=== PATIENT | male | born 1980 | race Caucasian/White ===

== ENCOUNTER 2017-08-10 22:54 | Emergency (ER) | payer SELFPAY ==
--- OUTSIDE RECORDS SUMMARY | 2017-08-10 22:57 | XMS REPORT | Clinical Summary ---
:[address] [facility] Address [address] [place] [address] Phone Care Team Providers Name Role Phone Unavailable Primary Care Provider Unavailable Allergies Active Allergy Reactions Severity Noted Date Comments Cyclobenzaprine Hcl 09/25/2016 Ibuprofen 09/25/2016 Ibuprofen 09/25/2016 Nsaids (Non-Steroidal Anti-Inflammatory Drug) 01/19/2017 Current Medications Prescription Sig. Disp. Refills Start Date End Date Status metFORMIN Take 500 mg by Active (GLUCOPHAGE) 500 MG mouth 2 (two) tablet times daily with breakfast and dinner. gabapentin Take 300 mg by Active (NEURONTIN) 300 MG mouth 3 (three) capsule times daily. ondansetron Take 1 tablet 10 tablet 0 03/08/2017 Active (ZOFRAN) 4 MG (4 mg total) by tablet mouth 3 (three) times daily as needed for Nausea for up to 10 doses. acetaminophen-codei Take 1 tablet 7 tablet 0 09/25/2016 Discontinued ne (TYLENOL #3) by mouth every 7 300-30 mg per 6 (six) hours tablet as needed for Pain for up to 7 doses. Max Daily Amount: 4 tablets methocarbamol Take 1 tablet 10 tablet 0 09/25/2016 (ROBAXIN) 750 MG (750 mg total) 7 tablet by mouth 4 (four) times daily for 10 days. miconazole Apply topically 28.35 g 0 01/19/2017 Discontinued (MICOTIN) 2 % cream 2 (two) times 7 daily Until resolved. traMADol (ULTRAM) Take 1 tablet 30 tablet 0 02/03/2017 50 mg tablet (50 mg total) 7 by mouth every 6 (six) hours as needed for Pain for up to 10 days. Max Daily Amount: 200 mg predniSONE Take 2 tablets 10 tablet 0 02/03/2017 (DELTASONE) 20 MG (40 mg total) 7 tablet by mouth daily for 5 days. Active Problems Not on file Encounters Date Type Specialty Care Team Description 03/08/2017 Emergency Emergency Medicine Gilson Hoff, Right lower quadrant abdominal pain (Primary Dx);Nausea and vomiting, intractability of vomiting not specified, unspecified vomiting type;Enteritis;Tobacco abuse 02/25/2017 Emergency Emergency Medicine ThomasJennifer Acute foot pain, left MD Tiki (Primary Dx) 02/03/2017 Emergency Emergency Medicine Frida Carlin Sciatica of left side MD Magdalena associated with disorder of lumbosacral spine (Primary Dx) 01/19/2017 Emergency Emergency Medicine Pedro Mccray (Primary MD Chris Dx);Chest pain in adult 01/19/2017 Orders Only General Internal Medicine 01/15/2017 Emergency Emergency Medicine Shimon Thrasher Neck pain (Primary Dx) MD Martin 12/12/2016 Emergency Emergency Medicine Traci Greene Thoracic back sprain, MD Jamey initial encounter (Primary Dx);Lumbar back sprain, initial encounter 09/25/2016 Emergency Emergency Medicine Shimon Villalba, Right elbow pain DO (Primary Dx) after 08/09/2016 Social History Tobacco Use Types Packs/Day Years Used Date Current Every Day Smoker Cigarettes 1 Smokeless Tobacco: Never Used Alcohol Use Drinks/Week oz/Week Comments No Sex Assigned at Date Recorded Not on file Last Filed Vital Signs Vital Sign Reading Time Taken Blood Pressure 124/58 03/08/2017 9:16 AM [facility]ILITY [facility] Pulse 67 03/08/2017 9:15 AM FACILITY DES[employer]ER Temperature 36.6 C (97.8 F) 03/08/2017 7:45 AM FACILITY DESIGNER Respiratory Rate 18 03/08/2017 7:45 AM FACILITY DESIGNER Oxygen Saturation 98% 03/08/2017 9:15 AM FACILITY DESIGNER Inhaled Oxygen Concentration - - Weight 90.7 kg (200 lb) 03/08/2017 7:45 AM FACILITY DESIGNER Height 177.8 cm (5' 10") 02/25/2017 8:16 AM CDT Body Mass Index 28.7 03/08/2017 7:45 AM FACILITY DESIGNER Plan of Treatment Not on file Results CT abdomen/pelvis with IV contrast (03/08/2017 8:47 AM) Specimen Performing Laboratory [facility] Narrative FINAL REPORT CT abdomen and pelvis with contrast. INDICATION: Abdominal pain, unspecified ABDOMINAL PAIN DIARRHEA NAUSEA EMESIS COMPARISON:No prior studies available for comparison. TECHNIQUE: Multiple contiguous transaxial images of the abdomen and pelvis were obtained following the administration of intravenous contrast. This exam was performed according to our departmental dose optimization program which includes automated exposure control, adjustment of the mA and/or kV according to patient size and/or use of iterative reconstructive technique. FINDINGS: The lung bases demonstrate mild atelectasis. The osseous structures demonstrate mild degenerative change. The liver demonstrates a calcified granuloma in the right hepatic lobe. The spleen, pancreas, and adrenal glands are unremarkable. The gallbladder is unremarkable. There is no biliary dilatation. The stomach and duodenum are unremarkable. Both kidneys are unremarkable. The urinary bladder is unremarkable. No pelvic masses are seen. There is no free fluid in the abdomen and pelvis. There is no bowel obstruction or perforation. The appendix appear within normal limits. Fluid-filled small bowel loops can be seen in the setting of nonspecific enteritis. There is no fluid collection or lymphadenopathy. IMPRESSION: 1. CT findings suggestive of nonspecific small bowel enteritis as above. Signed: Bryce Pool MD Report Verified Date/Time:03/08/2017 09:15:05 Reading Location: [address] Consult Reading Room Procedure Note Interface, External Ris In - 03/08/2017 9:17 AM FACILITY DESIGNER FINAL REPORT CT abdomen and pelvis with contrast. INDICATION: Abdominal pain, unspecified ABDOMINAL PAIN DIARRHEA NAUSEA EMESIS COMPARISON: No prior studies available for comparison. TECHNIQUE: Multiple contiguous transaxial images of the abdomen and pelvis were obtained following the administration of intravenous contrast. This exam was performed according to our departmental dose optimization program which includes automated exposure control, adjustment of the mA and/or kV according to patient size and/or use of iterative reconstructive technique. FINDINGS: The lung bases demonstrate mild atelectasis. The osseous structures demonstrate mild degenerative change. The liver demonstrates a calcified granuloma in the right hepatic lobe. The spleen, pancreas, and adrenal glands are unremarkable. The gallbladder is unremarkable. There is no biliary dilatation. The stomach and duodenum are unremarkable. Both kidneys are unremarkable. The urinary bladder is unremarkable. No pelvic masses are seen. There is no free fluid in the abdomen and pelvis. There is no bowel obstruction or perforation. The appendix appear within normal limits. Fluid-filled small bowel loops can be seen in the setting of nonspecific enteritis. There is no fluid collection or lymphadenopathy. IMPRESSION: 1. CT findings suggestive of nonspecific small bowel enteritis as above. Signed: Bryce Pool MD Report Verified Date/Time: 03/08/2017 09:15:05 Reading Location: [facility] [id number] Ortho Consult Reading Room with platelet count + automated diff (03/08/2017 8:00 AM)Only the most recent of2 resultswithin the time period is included. Component Value Ref Range WBC 13.1 (H) 4.0 - 10.0 10e3/L RBC 4.85 4.20 - 5.80 10e6/L Hemoglobin 13.9 13.0 - 16.8 g/dL Hematocrit 42.8 40.0 - 50.0 % MCV 88.3 82.0 - 98.0 fL MCH 28.6 27.0 - 33.0 pg MCHC 32.4 32.0 - 36.0 g/dL RDW 13.2 10.3 - 14.2 % Platelets 366 150 - 430 10e3/L MPV 6.9 6.5 - 10.5 fL % Neutros 77 % % Lymphs 12 % % Monos 6 % % Eos 4 % % Baso 1 % # Neutros 10.10 (H) 1.80 - 8.00 10e3/L # Lymphs 1.61 1.48 - 4.50 10e3/L # Monos 0.83 0.00 - 1.30 10e3/L # Eos 0.46 0.00 - 0.50 10e3/L # Baso 0.10 0.00 - 0.20 10e3/L Specimen Performing Laboratory Blood - Arm, Right [facility] [address] [place] [address] CBC with platelet count + automated diff (03/08/2017 8:00 AM)Only the most recent of2 resultswithin the time period is included. Specimen Performing Laboratory Blood Narrative The following orders were created for panel order CBC with platelet count + automated diff. Procedure Abnormality Status --------- ------ CBC with platelet count ...[[id number]]AbnormalFinal result Please view results for these tests on the individual orders. ALT (SGPT) (03/08/2017 8:00 AM) Component Value Ref Range ALT 21 5 - 50 U/L Specimen Performing Laboratory Blood - Arm, [facility] [place] [place] [facility] [address] [place] [id number] AST (SGOT) (03/08/2017 8:00 AM) Component Value Ref Range AST 11 5 - 40 U/L Specimen Performing Laboratory Blood - [facility], [facility], [place] [facility] [address] [place] [address] Lipase (03/08/2017 8:00 AM) Component Value Ref Range Lipase 37 (L) 40 - 240 U/L Specimen Performing Laboratory Blood - Arm, [facility] [place] [place] [address] [place] [address] Bilirubin, adult total (03/08/2017 8:00 AM) Component Value Ref Range Total Bilirubin 0.3 0.1 - 1.2 mg/dL Specimen Performing Laboratory Blood - Arm, [facility] [address] [place] [address] Basic Metabolic Panel (03/08/2017 8:00 AM) Component Value Ref Range Sodium 138 135 - 148 meq/L Potassium 3.9 3.6 - 5.5 meq/L Chloride 108 (H) 98 - 106 meq/L CO2 24 24 - 32 meq/L BUN 7 (L) 10 - 26 mg/dL Creatinine 0.56 0.50 - 1.20 mg/dL Glucose 138 (H) 70 - 110 mg/dL Calcium 8.9 8.5 - 10.5 mg/dL EGFR 163Comment: ESTIMATED GFR IS NOT ACCURATE mL/min/1.73 sq m CREATININE CLEARANCE IN PREDICTING GLOMERULAR FILTRATION RATE. ESTIMATED GFR IS NOT APPLICABLE FOR DIALYSIS PATIENTS. Specimen Performing Laboratory Blood - Arm, Right [facility] [place] [place] [facility] [address] [place] [address] XR foot 3 views left (02/25/2017 8:32 AM) Specimen Performing Laboratory [facility] Narrative FINAL REPORT TECHNIQUE: Frontal, oblique, and lateral views of the left foot. INDICATION: 37-year-old man after foot injury. COMPARISON: None. FINDINGS: No acute fractures or dislocations. Joint spaces are within normal limits. Soft tissues are grossly unremarkable. IMPRESSION: No acute osseous abnormalities of the left foot. Signed: Elsa Merida MD Report Verified Date/Time:02/25/2017 08:37:49 Reading Location: [address] Body Reading Room Procedure Note Interface, External Ris In - 02/25/2017 8:40 AM CDT FINAL REPORT TECHNIQUE: Frontal, oblique, and lateral views of the left foot. INDICATION: 37-year-old man after foot injury. COMPARISON: None. FINDINGS: No acute fractures or dislocations. Joint spaces are within normal limits. Soft tissues are grossly unremarkable. IMPRESSION: No acute osseous abnormalities of the left foot. Signed: Elsa Merida MD Report Verified Date/Time: 02/25/2017 08:37:49 Reading Location: [facility] [id number] CT Body Reading Room ECG Interpretation (01/19/2017 8:46 PM) Narrative Pedro Mccray MD 01/19/20178:46 PM ECG/EKG Interpretation Date/Time: 01/19/2017 6:40 PM Performed by: PEDRO MCCRAY Authorized by: PEDRO MCCRAY The ECG was interpreted by ED physician. This ECG was not compared with previous ECG(s).The ECG is interpreted as sinus rhythm. Rate is normal rate. Heart rate is 95 BPM. Conduction: conduction normal. ST segments normal. T waves normal. [place] is normal. Left sided lead use: Posterior leads were not used. Clinical Impression: normal ECGECG reviewed and does not meet STEMI criteria. Patient tolerance: Patient tolerated the procedure well with no immediate complications Rapid drug screen, urine (01/19/2017 8:18 PM)Only the most recent of2 resultswithin the time period is included. Component Value Ref Range Barbiturate Screen Negative Negative Benzodiazepine Screen Negative Negative Cocaine (Metab.) Screen Negative Negative Methadone Screen Negative Negative Opiate Screen Positive (A) Negative Cannabinoid Screen Positive (A) Negative Amph/Methamph Screen Negative Negative Phencyclidine Screen Negative Negative Specimen Performing Laboratory Urine - Urine, Clean Catch [facility] [address] [place] [address] Narrative DRUGCUTOFF CONC. Cocaine 300 ng/mL Iqfybckzkcz11 ng/mL Ahffhnupbnrkaq377 ng/mL Barbiturate 200 ng/mL Ivvkvvkwvphqg97 ng/mL Tzhpna663 ng/mL Methadone 300 ng/mL Amphetamine/ 1000 ng/mL Methamphetamine This assay provides an unconfirmed qualitative test result for the clinical management of patients in emergency situations. Chain of custody not maintained. Some ogls-kep-egoemma medications, as well as adulterants, may cause inaccurate results. Clinical correlation should be applied. A more comprehensive drug screen or confirmation of a detected drug may be performed upon request. POC-Glucose meter (01/19/2017 8:04 PM)Only the most recent of2 resultswithin the time period is included. Component Value Ref Range POC-Glucose Meter 241 (H)Comment: TESTED AT [facility] [address] [facility] 70 - 110 mg/dL [facility] [address] Specimen Performing Laboratory Blood [address] [address] Blood gas, venous (01/19/2017 7:55 PM) Component Value Ref Range pH, Jan 7.42 7.32 - 7.42 pCO2, Jan 36 (L) 41 - 51 mmHg pO2, Jan 43 (H) 25 - 40 mmHg O2 Sat, Jan 80.3 (H) 40.0 - 70.0 % HCO3, Jan 23 21 - 29 mmol/L Base Excess, Jan -1.4 -2.0 - 3.0 mmol/L Patient Temperature 36.7 C Specimen Performing Laboratory Blood - Arm, Right [facility] [address] [place] [address] Ketones, blood (01/19/2017 7:55 PM) Component Value Ref Range Ketones, Blood 0.0 <0.4 mmol/L Specimen Performing Laboratory Blood - Arm, Right [facility] [address] [place] [address] XR chest 1 view portable / bedside (01/19/2017 7:51 PM) Specimen Performing Laboratory [facility] Narrative FINAL REPORT Clinical History: cp Comparison Study: None Findings:The heart and lungs are within normal limits.The pleural spaces are clear.No significant bony or soft tissue abnormalities are seen. Impression: No active cardiopulmonary disease. Signed: Carlos Severino MD Report Verified Date/Time:01/19/2017 19:59:25 Reading Location: [address] Consult Reading Room Procedure Note Interface, External Ris In - 01/19/2017 8:01 PM CDT FINAL REPORT Clinical History: cp Comparison Study: None Findings: The heart and lungs are within normal limits. The pleural spaces are clear. No significant bony or soft tissue abnormalities are seen. Impression: No active cardiopulmonary disease. Signed: Carlos Severino MD Report Verified Date/Time: 01/19/2017 19:59:25 Reading Location: [address] Consult Reading Room Urinalysis w/Microscopic (01/19/2017 7:36 PM)Only the most recent of2 resultswithin the time period is included. Component Value Ref Range Color, UA Light Yellow Clarity, UA Clear Specific Anderson, UA 1.016 1.001 - 1.035 pH, UA 6.0 5.0 - 8.0 Protein, UA Negative Negative Glucose, UA >500 mg/dL (A) Negative Ketones, UA Negative Negative Bilirubin, UA Negative Negative Blood, UA Negative Negative Nitrite, UA Negative Negative Leukocytes, UA Negative Negative Urobilinogen, UA <1.0 0.2 - 1.0 mg/dL RBC, UA <1 /HPF WBC, UA 0 /HPF Bacteria, UA Rare Mucus Rare Specimen Source Specimen Performing Laboratory Urine - Urine, Clean Catch [facility] [address] [place] [address] Troponin I (01/19/2017 7:33 PM) Component Value Ref Range Troponin I <0.01 0.00 - 0.15 ng/mL Specimen Performing Laboratory Blood - Line, [facility] [place] [facility] [address] [place] [address] Narrative Troponin I (TnI) levels must be interpreted in the context of the presenting symptoms and the clinical findings. Elevated TnI levels indicate myocardial damage, but are not specific for ischemic heart disease. Elevated TnI levels are seen in patients with other cardiac conditions (including myocarditis and congestive heart failure), and slight TnI elevations occur in patients with other conditions, including sepsis, renal failure, acidosis, acute neurological disease, and persistent tachyarrhythmia. D-dimer (01/19/2017 7:33 PM) Component Value Ref Range D-Dimer, Quant <0.22 <0.50 MG/L FEU Specimen Performing Laboratory Blood - Line, [facility] [place] [facility] [address] [place] [address] Narrative Intended Use: The D-Dimer Assay can be used to aid in the diagnosis of Deep Vein Thrombosis (DVT) and Pulmonary Embolism Disease (PED). In patients with low pre-test probability, various studies concerning STA Liatest D-dimer test have reported that with a cutoff value of 0.50 MG/L FEU, the Negative Predictive Value (NPV) regarding the exclusion of thrombosis is within 95-100% range. B-type Natriuretic Factor (BNP) (01/19/2017 7:33 PM) Component Value Ref Range BNP <10 0 - 100 pg/mL Specimen Performing Laboratory Blood - Line, [facility] [place] [facility] [address] [place] [address] Creatine Kinase (CK), Total and MB (01/19/2017 7:33 PM) Component Value Ref Range Total CK 57 30 - 300 U/L CK-MB 0.6 0.0 - 4.9 ng/mL MB Relative Index 1.1 % Specimen Performing Laboratory Blood - Line, [facility] [place] [facility] [address] [place] [address] Narrative CK-MB Reference Range: <5 Normal 5-10 Borderline >10Abnormal Comprehensive metabolic panel (01/19/2017 7:33 PM) Component Value Ref Range Protein, Total 6.7Comment: Specimen moderately hemolyzed 6.0 - 8.5 gm/dL Albumin 3.5Comment: Specimen moderately hemolyzed 3.5 - 5.0 g/dL Alkaline Phosphatase 84 30 - 115 U/L Total Bilirubin 0.2Comment: Specimen moderately hemolyzed 0.1 - 1.3 mg/dL Sodium 138 135 - 148 meq/L Potassium 3.8Comment: Specimen moderately hemolyzed 3.5 - 5.5 meq/L Chloride 106 98 - 106 meq/L CO2 21 20 - 31 meq/L BUN 6 (L) 10 - 26 mg/dL Creatinine 0.84Comment: Specimen moderately hemolyzed 0.50 - 1.20 mg/dL Glucose 289 (H) 70 - 110 mg/dL Calcium 8.8 8.5 - 10.5 mg/dL AST 20Comment: Specimen moderately hemolyzed 5 - 40 U/L ALT 13Comment: Specimen moderately hemolyzed 6 - 50 U/L EGFR 103Comment: ESTIMATED GFR IS NOT ACCURATE mL/min/1.73 sq m CREATININE CLEARANCE IN PREDICTING GLOMERULAR FILTRATION RATE. ESTIMATED GFR IS NOT APPLICABLE FOR DIALYSIS PATIENTS. Specimen Performing Laboratory Blood - Line, Venous [facility] [address] [place] [address] ECG 12 lead (01/19/2017 6:40 PM) Specimen Performing Laboratory [facility] Narrative Ventricular Rate 95 BPM Atrial Rate 95 BPM P-R Interval 132 ms QRS Duration 72 ms Q-T Interval 334 ms QTC Calculation(Bazett) 419 ms P [place] 69 degrees R [place] 49 degrees T [place] 52 degrees Normal sinus rhythm with sinus arrhythmia Nonspecific ST and T wave abnormality Abnormal ECG No previous ECGs available Procedure Note Interface, External Ris In - 01/20/2017 12:01 PM CDT Ventricular Rate 95 BPM Atrial Rate 95 BPM P-R Interval 132 ms QRS Duration 72 ms Q-T Interval 334 ms QTC Calculation(Bazett) 419 ms P [place] 69 degrees R [place] 49 degrees T [place] 52 degrees Normal sinus rhythm with sinus arrhythmia Nonspecific ST and T wave abnormality Abnormal ECG No previous ECGs available CT spine cervical without IV contrast (01/15/2017 5:49 PM) Specimen Performing Laboratory [facility] Narrative FINAL REPORT EXAMINATION: CERVICAL SPINE NONCONTRAST CT CLINICAL INDICATION: TRAUMATIC INJURY, NECK PAIN TECHNIQUE: Axial noncontrast tomographic images were acquired through the cervical spine. Following postprocessing, coronal and sagittal reformatted images were created and reviewed. Examination was performed with the patient in a C-spine collar. The exam was performed according to our departmental dose optimization program which includes automated exposure control, adjustment of the mA and/or kV according to patient's size and/or use of iterative reconstructive technique. FINDINGS: No evidence of a basilar skull fracture. The tympanic and mastoid air cells are well pneumatized. The mandibular condyles project anatomically. On the sagittal reformatted images, there is mild straightening of normal cervical lordosis. The cervical spine collar may attribute to the loss of lordosis. No definite evidence of acute cervical spine fracture or malalignment. The intervertebral disc spaces are relatively preserved in height. No definite noncontrast evidence of significant spinal canal stenosis or neural foraminal encroachment. A small relatively well-corticated 5 mm bone density is noted near the articulation of the right first rib and adjacent transverse process, etiology and chronicity indeterminate. However, the well-corticated margin and absence of an associated donor site suggest a possible chronic process. The prevertebral soft tissues are unremarkable. Noncontrast images of the larynx, trachea, thyroid gland, visualized trachea and proximal esophagus are unremarkable. IMPRESSION: No evidence of acute cervical spine fracture or malalignment. Mild straightening of normal cervical lordosis. Signed: Nba Mittal MD Report Verified Date/Time:01/15/2017 18:25:26 Reading Location: [address] Reading Room Procedure Note Interface, External Ris In - 01/15/2017 6:27 PM CDT FINAL REPORT EXAMINATION: CERVICAL SPINE NONCONTRAST CT CLINICAL INDICATION: TRAUMATIC INJURY, NECK PAIN TECHNIQUE: Axial noncontrast tomographic images were acquired through the cervical spine. Following postprocessing, coronal and sagittal reformatted images were created and reviewed. Examination was performed with the patient in a C-spine collar. The exam was performed according to our departmental dose optimization program which includes automated exposure control, adjustment of the mA and/or kV according to patient's size and/or use of iterative reconstructive technique. FINDINGS: No evidence of a basilar skull fracture. The tympanic and mastoid air cells are well pneumatized. The mandibular condyles project anatomically. On the sagittal reformatted images, there is mild straightening of normal cervical lordosis. The cervical spine collar may attribute to the loss of lordosis. No definite evidence of acute cervical spine fracture or malalignment. The intervertebral disc spaces are relatively preserved in height. No definite noncontrast evidence of significant spinal canal stenosis or neural foraminal encroachment. A small relatively well-corticated 5 mm bone density is noted near the articulation of the right first rib and adjacent transverse process, etiology and chronicity indeterminate. However, the well-corticated margin and absence of an associated donor site suggest a possible chronic process. The prevertebral soft tissues are unremarkable. Noncontrast images of the larynx, trachea, thyroid gland, visualized trachea and proximal esophagus are unremarkable. IMPRESSION: No evidence of acute cervical spine fracture or malalignment. Mild straightening of normal cervical lordosis. Signed: Nba Mittal MD Report Verified Date/Time: 01/15/2017 18:25:26 Reading Location: [address] Reading Room brain without IV contrast (01/15/2017 5:49 PM) Specimen Performing Laboratory [employer] Narrative FINAL REPORT EXAMINATIONNONCONTRAST HEAD CT SCAN CLINICAL HISTORY:Headache, fall COMPARISON CT: None EPISODE OF CARE: Initial TECHNIQUE: Axial tomographic images were obtained through the brain from the vertex to the skull base without intravenous contrast. The exam was performed according to our departmental dose optimization program which includes automated exposure control, adjustment of the mA and/or kV according to patient's size and/or use of iterative reconstructive technique. FINDINGS: No evidence of acute skull fracture, intracranial hemorrhage, mass effect, cerebral edema, midline shift, hydrocephalus or abnormal extra-axial fluid collection. The orbits are unremarkable. The visualized paranasal sinuses, tympanic cavities and mastoid air cells are pneumatized. IMPRESSION: No specific evidence of an acute cranial process. MRI could be performed for further evaluation if warranted. Signed: Nba Mittal MD Report Verified Date/Time:01/15/2017 18:14:13 Reading Location: [address] Reading Room Procedure Note Interface, External Ris In - 01/15/2017 6:16 PM CDT FINAL REPORT EXAMINATION NONCONTRAST HEAD CT SCAN CLINICAL HISTORY:Headache, fall COMPARISON CT: None EPISODE OF CARE: Initial TECHNIQUE: Axial tomographic images were obtained through the brain from the vertex to the skull base without intravenous contrast. The exam was performed according to our departmental dose optimization program which includes automated exposure control, adjustment of the mA and/or kV according to patient's size and/or use of iterative reconstructive technique. FINDINGS: No evidence of acute skull fracture, intracranial hemorrhage, mass effect, cerebral edema, midline shift, hydrocephalus or abnormal extra-axial fluid collection. The orbits are unremarkable. The visualized paranasal sinuses, tympanic cavities and mastoid air cells are pneumatized. IMPRESSION: No specific evidence of an acute cranial process. MRI could be performed for further evaluation if warranted. Signed: Nba Mittal MD Report Verified Date/Time: 01/15/2017 18:14:13 Reading Location: [address] Reading Room spine lumbar 2 or 3 views (12/12/2016 11:13 PM) Specimen Performing Laboratory [facility] Narrative FINAL REPORT RAD, SPINE, LUMBAR, 2 OR 3 VIEWS, RAD, SPINE, THORACIC, 2 VIEWS CLINICAL INDICATION: trauma, thrown off horse COMPARISON: None FINDINGS: Oblique, frontal, lateral and coned lateral radiographs of the lumbar spine, as well as frontal and lateral views of the thoracic spine. Thoracic spine: Normal vertebral body height and alignment. No fracture is identified. Disc spaces are preserved. Multilevel endplate degenerative changes are present. Paraspinal soft tissue structures are unremarkable. Lumbar spine: No fracture or loss of vertebral height is identified. The disc spaces are preserved. The lumbar spine alignment is normal. Psoas shadows are in place. Additional findings: None IMPRESSION: No traumatic abnormality of the thoracic or lumbar spine. Signed: JR Waller Robert MD Report Verified Date/Time:12/12/2016 23:13:07 Reading Location: [address] Reading Room Procedure Note Interface, External Ris In - 12/12/2016 11:15 PM CDT FINAL REPORT RAD, SPINE, LUMBAR, 2 OR 3 VIEWS, RAD, SPINE, THORACIC, 2 VIEWS CLINICAL INDICATION: trauma, thrown off horse COMPARISON: None FINDINGS: Oblique, frontal, lateral and coned lateral radiographs of the lumbar spine, as well as frontal and lateral views of the thoracic spine. Thoracic spine: Normal vertebral body height and alignment. No fracture is identified. Disc spaces are preserved. Multilevel endplate degenerative changes are present. Paraspinal soft tissue structures are unremarkable. Lumbar spine: No fracture or loss of vertebral height is identified. The disc spaces are preserved. The lumbar spine alignment is normal. Psoas shadows are in place. Additional findings: None IMPRESSION: No traumatic abnormality of the thoracic or lumbar spine. Signed: JR Waller Robert MD Report Verified Date/Time: 12/12/2016 23:13:07 Reading Location: [address] Reading Room spine thoracic 2 views (12/12/2016 11:13 PM) Specimen Performing Laboratory [facility] Narrative FINAL REPORT RAD, SPINE, LUMBAR, 2 OR 3 VIEWS, RAD, SPINE, THORACIC, 2 VIEWS CLINICAL INDICATION: trauma, thrown off horse COMPARISON: None FINDINGS: Oblique, frontal, lateral and coned lateral radiographs of the lumbar spine, as well as frontal and lateral views of the thoracic spine. Thoracic spine: Normal vertebral body height and alignment. No fracture is identified. Disc spaces are preserved. Multilevel endplate degenerative changes are present. Paraspinal soft tissue structures are unremarkable. Lumbar spine: No fracture or loss of vertebral height is identified. The disc spaces are preserved. The lumbar spine alignment is normal. Psoas shadows are in place. Additional findings: None IMPRESSION: No traumatic abnormality of the thoracic or lumbar spine. Signed: JR Waller Robert MD Report Verified Date/Time:12/12/2016 23:13:07 Reading Location: [address] Reading Room Procedure Note Interface, External Ris In - 12/12/2016 11:15 PM CDT FINAL REPORT RAD, SPINE, LUMBAR, 2 OR 3 VIEWS, RAD, SPINE, THORACIC, 2 VIEWS CLINICAL INDICATION: trauma, thrown off horse COMPARISON: None FINDINGS: Oblique, frontal, lateral and coned lateral radiographs of the lumbar spine, as well as frontal and lateral views of the thoracic spine. Thoracic spine: Normal vertebral body height and alignment. No fracture is identified. Disc spaces are preserved. Multilevel endplate degenerative changes are present. Paraspinal soft tissue structures are unremarkable. Lumbar spine: No fracture or loss of vertebral height is identified. The disc spaces are preserved. The lumbar spine alignment is normal. Psoas shadows are in place. Additional findings: None IMPRESSION: No traumatic abnormality of the thoracic or lumbar spine. Signed: JR Waller Robert MD Report Verified Date/Time: 12/12/2016 23:13:07 Reading Location: [address] Reading Room elbow 3 views min right (09/25/2016 3:35 PM) Specimen Performing Laboratory [facility] Impressions : No radiographic abnormalities are visualized in the right elbow. Signed: Kajal Dahl MD Report Verified Date/Time:09/25/2016 15:42:48 Reading Location: [address] Reading Room Narrative FINAL REPORT RIGHT ELBOW 3 VIEWS HISTORY: Right elbow pain COMPARISON: None FINDINGS: AP, oblique, and lateral views of the right elbow were obtained. No fracture or dislocation are identified. No joint space narrowing, osteophyte formation, or erosive changes. No loose bodies are identified. No evidence of a joint effusion. No focal soft tissue swelling. Procedure Note Interface, External Ris In - 09/25/2016 3:44 PM CDT FINAL REPORT RIGHT ELBOW 3 VIEWS HISTORY: Right elbow pain COMPARISON: None FINDINGS: AP, oblique, and lateral views of the right elbow were obtained. No fracture or dislocation are identified. No joint space narrowing, osteophyte formation, or erosive changes. No loose bodies are identified. No evidence of a joint effusion. No focal soft tissue swelling. IMPRESSION : No radiographic abnormalities are visualized in the right elbow. Signed: Kajal Dahl MD Report Verified Date/Time: 09/25/2016 15:42:48 Reading Location: [facility] B1 [id number] Transitional Reading Room after 08/09/2016
--- OUTSIDE RECORDS SUMMARY | 2017-08-10 22:57 | XMS REPORT ---
:1980 [facility] [address] [place] [address] Dr. Dao [address] [place] [address] Care Team Providers Name Role Phone WAYNEAnju USMAN Unavailable Unavailable DR EBONY HARO Unavailable Unavailable DR VENECIA SANDHU Unavailable Unavailable Barbara MONROE Unavailable Unavailable BEATRIZ, DR GARIBAY Unavailable Unavailable LINSEY MCCRAY Unavailable Unavailable KIRIT, DR GALVAN Unavailable Unavailable KARIME VALDOVINOS Unavailable Unavailable , DR DAWKINS Unavailable Unavailable ODELL, DR HILL Unavailable Unavailable Problems This patient has no known problems. Allergies, Adverse Reactions, Alerts This patient has no known allergies or adverse reactions. Medications This patient has no known medications. Encounters Start End Encounter Admission Attending Care Care Encounter Date/Time Date/Time Type Type Clinicians Facility Department ID 2017-04-27 2017-04-27 Emergency E [facility] [id number] 08:54:00 10:01:00 USMAN 2017-04-20 2017-04-20 Outpatient E [facility] [id number] 11:00:00 14:40:00 EBONY 2016-12-12 2016-12-12 Emergency E [facility] [id number] 20:40:00 21:38:00 WASIM Results Test Description Test Time Test Comments Text Results Atomic Results Result Comments XR FOOT LEFT 1 OR 2 2017-04-27 09:35:56 EXAMINATION: XR ANKLE LEFT 2 VIEW, XR VIEW FOOT LEFT 1 OR 2 VIEW.LOCATION: D4.HISTORY: Pain, stepped wrong.COMPARISON: None.FINDINGS/IMPRESSION:Two views of left ankle demonstrates no soft tissues swelling over medial norlateral malleolus. No radiographic evidence for acute osseous abnormality.Articular spaces are well-maintained. Posterior calcaneal spurring.Two views of left foot demonstrates no dorsal soft tissue swelling. Noradiographic evidence of acute osseous abnormality. Articular spaces are wellmaintained. XR ANKLE LEFT 2 VIEW 2017-04-27 09:35:56 EXAMINATION: XR ANKLE LEFT 2 VIEW , XR FOOT LEFT 1 OR 2 VIEW.LOCATION: D4.HISTORY: Pain, stepped wrong.COMPARISON: None.FINDINGS/IMPRESSION:Two views of left ankle demonstrates no soft tissues swelling over medial norlateral malleolus. No radiographic evidence for acute osseous abnormality.Articular spaces are well-maintained. Posterior calcaneal spurring.Two views of left foot demonstrates no dorsal soft tissue swelling. Noradiographic evidence of acute osseous abnormality. Articular spaces are wellmaintained. MRA NECK W & WO 2017-04-20 14:42:31 MRA OF THE CAROTIDS WITHOUT CONTRAST CONTRASTHISTORY: Near syncopal episodeTECHNIQUE: 3-Dtime of flight source images were reformatted into multiple 3-Dsequences. Stenosis estimates (diameter reduction) is based on end vesselluminal diameter in accordance with NASCET criteria. FINDINGS: . Bilateral proximal and distal common carotid arteries are normal. Nosignificant stenosis is demonstrated. The proximal aspects of bilateralinternal carotid arteries are normal as well. The vertebral arteries appear codominant. No significant stenosis isdemonstrated.IMPRESSION:1. No evidence of stenosis demonstrated within bilateral common or internalcarotid arteries. MRA HEAD W/O CONTRAST 2017-04-20 14:28:18 MRA OF THE [place] WITHOUT CONTRASTHISTORY: Near syncopal episodeTECHNIQUE: 3-Dtime of flight source images were reformatted into multiple 3-Dsequences. Stenosis estimates (diameter reduction) is based on end vesselluminal diameter in accordance with NASCET criteria. FINDINGS:Bilateral distal internal carotid arteries demonstrate no evidence ofsignificant stenosis. No aneurysmal dilatation is seen. Bilateral M1, M2, A1and A2 segments are unremarkable. The A-comm is patent.Left vertebral artery is dominate. Bilateral PICA, AICA, superior cerebellarand posterior cerebral arteries are unremarkable. The right posteriorcommunicating artery is robust.IMPRESSION:1. No significant stenosis.2. No aneurysmal dilatation. MRI BRAIN W/ AND W/O 2017-04-20 13:51:27 MRI brain with and without CONTRAST contrastLocation code: [id number] history: Near syncopeTechnique: Multiplanar multisequence MR imaging of the brain was performed withand without contrast. No prior study is available for comparison.Findings: There is no area of restricted diffusion to suggest acute or recentinfarct. There is no acute intracranial hemorrhage or extra-axial collection.There is no abnormal enhancement, mass, or lesion. There is no hydrocephalus,intracranial edema, or midline shift. The posterior fossa and internal auditory canals are unremarkable. The orbits,globes, sinuses, and skull base are unremarkable.Impression: Normal MRI of the brain with and without contrast. GLUCOMETER GLUCOSE- LAB USE ONLY 2017-04-20 11:46:00 Test Item Value Reference Range Comments GLUCOMETER (test code=GMG) 161 mg/dL 70-100 CLEANED METERMeter ID: [id number]: [id number] WILFRED RAJU XR ELBOW LEFT COMPLETE 3 [id number] 10:38:15Right Elbow, 3 viewsLocation Code: [id number] HISTORY: Injury, fallCOMMENTS: AP, lateral, and oblique views of the right elbow demonstrate noacute fracture or malalignment. The soft tissues are unremarkable.IMPRESSION: No acute radiographic abnormality.XR CHEST 2 [id number] 10:38:03PA and lateral chest, 2 views.Location code: [id number] HISTORY: Dizziness, fallCOMPARISON: NoneCOMMENTS: The lungs are clear and well inflated. The costophrenic angles aresharp. The cardiomediastinalsilhouette is unremarkable. The bones are intact.IMPRESSION: No acute abnormalityXR SHOULDER LEFT 3 [id number] 10:37:47Left shoulder, 3 viewsLocation Code: [id number] HISTORY: Fall, injury,COMMENTS: AP views in internaland external rotation along with a transscapularY view of the left shoulder were obtained. There is no acute fracture ormalalignment. The soft tissues are unremarkable.IMPRESSION: No acute abnormality.XR HUMERUS LEFT AP & amp; [id number] 10:37:28Left humerus, 2 viewsLocation Code: [id number] history: Trauma, injury, pain Comment: AP and lateralviews of the left humerus demonstrate no displacedfracture or malalignment. The soft tissues are unremarkable.Impression:No acute radiographic abnormality.[id number] 10: 36:00 Test Item Value Reference Range Comments D-DIMER (test code=DDI) <200 ng/mL D-DU 0-234 D-DIMER COMMENT (test *Level to rule out DVT or PE: code=DDCOM) <235 ng/mL D-DU* COMPREHENSIVE METABOLIC [id number] 10:36:00 Test Item Value Reference Range Comments GLUCOSE (test code=06D) 261 mg/dL 75-100 SODIUM (test code=01A) 139 mmol/L 136-145 POTASSIUM (test code=01B) 3.6 mmol/L 3.6-5.1 CHLORIDE (test code=04A) 101 mmol/L 98-107 CO2 (test code=02A) 28 mmol/L 22-32 ANION GAP (test code=ANG) 13.6 mmol/L BUN (test code=05D) 5 mg/dL 7-18 CREATININE (test code=03E) 0.7 mg/dL 0.7-1.3 BUN/CREA (test code=BCR) 8 12-20 CALCIUM (test code=09D) 8.5 mg/dL 8.3-9.5 BILI TOTAL (test code=11A) 0.3 mg/dL 0.2-1.0 PROTEIN (test code=07D) 6.3 g/dL 6.4-8.2 ALBUMIN (test code=08D) 3.2 g/dL 3.5-4.8 GLOBULIN (test code=GLB) 3.1 g/dL 1.5-3.8 ALB/GLOB (test code=AGRR) 1.0 1.0-2.6 ALK PHOS (test code=35A) 108 IU/L 42-121 AST (test code=30A) 11 IU/L <=42 ALT (test code=31A) 18 IU/L <=78 CARDIAC [id number] 10:19:00 Test Item Value Reference Range Comments TROPONIN I (test code=A84) <0.015 ng/mL 0.000-0.045 CKMB (test code=A49) <1.0 ng/mL <=3.6 CPK (test code=32A) 38 IU/L 39-308 PRO TIME AND [id number] 10:12:00 Test Item Value Reference Range Comments PT (test code=TT) 11.3 s 9.8-13.6 INR (test code=INR) 1.0 INRH (test code=INRH) SUGGESTED THERAPEUTIC RANGE FOR INR: 2.5 - 3.5 For Patients with Prosthetic Valves or Patients with recurrent Thromboembolic Events 2.0 - 3.0 For Most Other Applications PTT (test code=PTT) 27.2 s 20.2-38.0 PTTH (test code=PTTH) To monitor the effectiveness of heparin, we offer the Anti-Xa (Heparin Assay). It can be used for either unfractionated or LMW Heparin. Order Code is ANTI-XA CBC (INCLUDES AUTOMATED DIFFERENTIAL)2017-04-20 10:03:00 Test Item Value Reference Range Comments WBC (test code=WBC) 12.0 10\S\3/uL 4.5-11.0 RBC (test code=RBC) 5.10 10\S\6/uL 4.30-5.70 HGB (test code=HBG) 14.5 g/dL 14.0-18.0 HCT (test code=HCT) 42.7 % 35.0-46.0 MCV (test code=MCV) 83.7 fL 80.0-94.0 MCH (test code=MCH) 28.4 pg 27.0-31.0 MCHC (test code=MCHC) 34.0 g/dL 32.0-36.0 RDW (test code=RDW) 12.7 % 11.5-14.5 PLT (test code=PLT) 374 10\S\3/uL 130-400 MPV (test code=MPV) 8.9 fL 9.4-12.4 NEUTROP # (test code=NE#) 7.9 10\S\3/uL 2.0-8.0 LYMPH # (test code=LY#) 2.8 10\S\3/uL 1.2-4.0 MONOCYTE # (test code=MO#) 0.7 10\S\3/uL 0.0-1.1 EOSINOPH # (test code=EO#) 0.5 10\S\3/uL 0.0-0.7 BASOPHIL # (test code=BA#) 0.1 10\S\3/uL 0.0-0.3 IG # (test code=IG#) 0.03 10\S\3/uL 0.00-0.06 NRBC # (test code=NRBC#) 0.00 10\S\3/uL 0.00-0.01 NEUTROPH % (test code=NE%) 65.7 % 35.0-73.0 LYMPH % (test code=LY%) 23.5 % 20.0-55.0 MONO % (test code=MO%) 6.2 % 2.5-10.0 EOSINOPH % (test code=EO%) 3.7 % 0.0-5.0 BASOPHIL % (test code=BA%) 0.7 % 0.0-2.0 IG % (test code=IG%) 0.2 % 0.0-0.8 NRBC% (test code=NRBC%) 0.0 % 0.0-0.2 MANDIFF (test code=MDIFF) NO NO RBC MORPH (test code=RBCMOR) NORMAL CT HEAD W/O [id number] 10:02:40CT brain without contrastLocation code: [id number] HISTORY: Dizziness, headache COMPARISON: None.TECHNIQUE: Routine unenhanced axial imaging of the brain was performed. Automatic exposure control was utilized. Total DLP: 910 mGycmFINDINGS: There is no acute intracranial hemorrhage or extra-axial collection.There is no hydrocephalus, midline shift, or space occupying mass. Ventura-whitematter differentiation is well preserved with no definite CT evidence of anacute infarct. The cranial vault and skull base are intact. The paranasal sinuses and mastoidair cells are pneumatized and well aerated.IMPRESSION: No acute intracranial abnormality.DRUGS OF ABUSE * WW*2017-03-08 14:26:00 Test Item Value Reference Range Comments DRUG SCRN (test code=HDOA) URINE DRUG SCREEN This is an unconfirmed screening result and should not be used for non-medical purposes CANNABINOD (test code=88C) POSITIVE NEGATIVE AMPHETAMINE (test code=84A) Negative NEGATIVE BENZODIAZP (test code=86A) Negative NEGATIVE BARBITURAT (test code=85A) Negative NEGATIVE OPIATES (test code=92B) Negative NEGATIVE COCAINE (test code=87A) Negative NEGATIVE PHENCYCLID (test code=66A) Negative NEGATIVE METHADONE (test code=64A) Negative NEGATIVE DOAH (test code=DOAH) URINE DRUG SCREEN Cut-off values are as follows: ---- Cannabinoids 50 ng/mL Cocaine 300 ng/mL Amphetamines 1000 ng/mL Phencyclidine 25 ng/mL Benzodiazepines 200 ng.mL Methadone 300 ng/mL Barbiturates 200 ng/mL Opiates 2000 ng/mL URINALYSIS 2017-03-08 14:15:00 Test Item Value Reference Range Comments COLOR (test code=COLU) YELLOW YELLOW CLARITY (test code=CLA) CLEAR CLEAR GLUCOSE UR (test code=UA GLUCOSE) 3+ NEGATIVE BILI UR (test code=BILE) NEGATIVE NEGATIVE KETONES UR (test code=ULISSES) NEGATIVE NEGATIVE SP GRAVITY (test code=SPGR) 1.010 1.005-1.030 PH UR (test code=PH) 6.5 4.5-8.0 PROTEIN UR (test code=PU) NEGATIVE NEGATIVE UROBIL UR (test code=UROQ) 0.2 EU/dL 0.2-1.0 NITRITE UR (test code=NITRITE) NEGATIVE NEGATIVE BLOOD UR (test code=UA BLOOD) NEGATIVE NEGATIVE LEUK ES UR (test code=LEUK) NEGATIVE NEGATIVE AUAM (test code=WAUAM) NO NO COMPREHENSIVE METABOLIC PHAM 2017-03-08 14:02:00 Test Item Value Reference Range Comments GLUCOSE (test code=06D) 253 mg/dL 75-100 SODIUM (test code=01A) 137 mmol/L 136-145 POTASSIUM (test code=01B) 3.4 mmol/L 3.6-5.1 CHLORIDE (test code=04A) 104 mmol/L 98-107 CO2 (test code=02A) 23 mmol/L 22-32 ANION GAP (test code=ANG) 13.4 mmol/L BUN (test code=05D) 6 mg/dL 7-18 CREATININE (test code=03E) 0.7 mg/dL 0.7-1.3 BUN/CREA (test code=BCR) 9 12-20 CALCIUM (test code=09D) 7.9 mg/dL 8.3-9.5 BILI TOTAL (test code=11A) 0.3 mg/dL 0.2-1.0 PROTEIN (test code=07D) 6.4 g/dL 6.4-8.2 ALBUMIN (test code=08D) 2.9 g/dL 3.5-4.8 GLOBULIN (test code=GLB) 3.5 g/dL 1.5-3.8 ALB/GLOB (test code=AGRR) 0.8 1.0-2.6 ALK PHOS (test code=35A) 102 IU/L 42-121 AST (test code=30A) 7 IU/L <=42 ALT (test code=31A) 13 IU/L <=78 LIPASE SERUM WW2017-03-08 13:57:00 Test Item Value Reference Range Comments LIPASE (test code=60A) 81 IU/L 73-393 CBC (INCLUDES AUTOMATED DIFFERENTIAL)*[id number] 13:47:00 Test Item Value Reference Range Comments WBC (test code=WBC) 14.4 10\S\3/uL 4.5-11.0 RBC (test code=RBC) 5.14 10\S\6/uL 4.30-5.70 HGB (test code=HBG) 15.0 g/dL 14.0-18.0 HCT (test code=HCT) 44.6 % 35.0-46.0 MCV (test code=MCV) 86.8 fL 80.0-94.0 MCH (test code=MCH) 29.2 pg 27.0-31.0 MCHC (test code=MCHC) 33.6 g/dL 32.0-36.0 RDW (test code=RDW) 13.0 % 11.5-14.5 PLT (test code=PLT) 409 10\S\3/uL 130-400 MPV (test code=MPV) 9.1 fL 9.4-12.4 NEUTROP # (test code=NE#) 10.9 10\S\3/uL 2.0-8.0 LYMPH # (test code=LY#) 2.3 10\S\3/uL 1.2-4.0 MONOCYTE # (test code=MO#) 0.8 10\S\3/uL 0.0-1.1 EOSINOPH # (test code=EO#) 0.3 10\S\3/uL 0.0-0.7 BASOPHIL # (test code=BA#) 0.1 10\S\3/uL 0.0-0.3 IG # (test code=IG#) 0.05 10\S\3/uL 0.00-0.06 NRBC # (test code=NRBC#) 0.00 10\S\3/uL 0.00-0.01 NEUTROPH % (test code=NE%) 75.4 % 35.0-73.0 LYMPH % (test code=LY%) 16.2 % 20.0-55.0 MONO % (test code=MO%) 5.4 % 2.5-10.0 EOSINOPH % (test code=EO%) 2.2 % 0.0-5.0 BASOPHIL % (test code=BA%) 0.5 % 0.0-2.0 IG % (test code=IG%) 0.3 % 0.0-0.8 NRBC% (test code=NRBC%) 0.0 % 0.0-0.2 MANDIFF (test code=WMDIFF) NO NO RBC MORPH (test code=WRBCMOR) NORMAL CT, [id number] 09:15:00Reason for exam:->ABDOMINAL PAINReason for exam :->DIARRHEAReason for exam:->NAUSEAReason for exam:->EMESISWhat is the patient's sedation requirement?->No SedationFINAL REPORT CT abdomen and pelvis with contrast. INDICATION: Abdominal pain, unspecifiedABDOMINAL PAINDIARRHEANAUSEAEMESIS COMPARISON: No prior studies available for comparison. [...] perforation. The appendix appear within normal limits. Fluid- filled small bowel loops can be seen in the setting of nonspecific enteritis. There is no fluid collection or lymphadenopathy. IMPRESSION:1. CT findings suggestive of nonspecific small bowel enteritis as above. Signed: Bryce Gallagher MDReport Verified Date/Time: 03/08/2017 09:15:05 Reading Location: [address] Ortho Consult Reading Room BASIC METABOLIC [id number] 08:21:00 Test Item Value Reference Range Comments SODIUM (BEAKER) (test 138 meq/L 135-148 galg=924) POTASSIUM (BEAKER) (test 3.9 meq/L 3.6-5.5 xmrs=934) CHLORIDE (BEAKER) (test 108 meq/L 98-106 rxlw=629) CO2 (BEAKER) (test 24 meq/L 24-32 iilj=008) BLOOD UREA NITROGEN 7 mg/dL 10-26 (BEAKER) (test igyb=286) CREATININE (BEAKER) (test 0.56 mg/dL 0.50-1.20 topy=845) GLUCOSE RANDOM (BEAKER) 138 mg/dL 70-110 (test qeai=680) CALCIUM (BEAKER) (test 8.9 mg/dL 8.5-10.5 pbsd=886) EGFR (BEAKER) (test 163 mL/min/1.73 sq m ESTIMATED GFR IS NOT sudc=0519) ACCURATE CREATININE CLEARANCE IN PREDICTING GLOMERULAR FILTRATION RATE. ESTIMATED GFR IS NOT APPLICABLE FOR DIALYSIS PATIENTS. AST (SGOT)2017-03-08 08:18:00 Test Item Value Reference Range Comments AST (SGOT) (BEAKER) (test qbgd=956) 11 U/L 5-40 ALT (SGPT)2017-03-08 08:18:00 Test Item Value Reference Range Comments ALT (SGPT) (BEAKER) (test eemj=985) 21 U/L 5-50 [id number] 08:18:00 Test Item Value Reference Range Comments LIPASE (BEAKER) (test ejkw=223) 37 U/L 40-240 BILIRUBIN, ADULT [id number] 08:16:00 Test Item Value Reference Range Comments BILIRUBIN TOTAL (BEAKER) (test wime=426) 0.3 mg/dL 0.1-1.2 CBC W/PLT COUNT & AUTO [id number] 08:13:00 Test Item Value Reference Range Comments WHITE BLOOD CELL COUNT (BEAKER) (test 13.1 10e3/ L 4.0-10.0 wloi=850) RED BLOOD CELL COUNT (BEAKER) (test qbge=218) 4.85 10e6/ L 4.20-5.80 HEMOGLOBIN (BEAKER) (test tjup=304) 13.9 g/dL 13.0-16.8 HEMATOCRIT (BEAKER) (test fado=000) 42.8 % 40.0-50.0 MEAN CORPUSCULAR VOLUME (BEAKER) (test 88.3 fL 82.0-98.0 ujcx=885) MEAN CORPUSCULAR HEMOGLOBIN (BEAKER) (test 28.6 pg 27.0-33.0 wnqp=110) MEAN CORPUSCULAR HEMOGLOBIN CONC (BEAKER) 32.4 g/dL 32.0-36.0 (test rpes=978) RED CELL DISTRIBUTION WIDTH (BEAKER) (test 13.2 % 10.3-14.2 ufvz=220) PLATELET COUNT (BEAKER) (test grms=477) 366 10e3/ L 150-430 MEAN PLATELET VOLUME (BEAKER) (test jbyz=021) 6.9 fL 6.5-10.5 NEUTROPHILS RELATIVE PERCENT (BEAKER) (test 77 % tuby=794) LYMPHOCYTES RELATIVE PERCENT (BEAKER) (test 12 % tmjm=766) MONOCYTES RELATIVE PERCENT (BEAKER) (test 6 % pvlb=922) EOSINOPHILS RELATIVE PERCENT (BEAKER) (test 4 % azun=444) BASOPHILS RELATIVE PERCENT (BEAKER) (test 1 % qnlc=903) NEUTROPHILS ABSOLUTE COUNT (BEAKER) (test 10.10 10e3/ L 1.80-8.00 kpgg=641) LYMPHOCYTES ABSOLUTE COUNT (BEAKER) (test 1.61 10e3/ L 1.48-4.50 ygqw=815) MONOCYTES ABSOLUTE COUNT (BEAKER) (test 0.83 10e3/ L 0.00-1.30 pthr=943) EOSINOPHILS ABSOLUTE COUNT (BEAKER) (test 0.46 10e3/ L 0.00-0.50 mqrs=169) BASOPHILS ABSOLUTE COUNT (BEAKER) (test 0.10 10e3/ L 0.00-0.20 svni=782) RAD, FOOT, MIN 3 VIEWS, [id number] 08:37:00Reason for exam:->FOOT INJURYleft foot injury , horse stepped on it this morningFINAL REPORT TECHNIQUE: Frontal, oblique, and lateral views of the left foot.INDICATION: 37-year-old man after foot injury. COMPARISON: None. FINDINGS: No acute fractures or dislocations.Joint spaces are within normal limits.Soft tissues are grossly unremarkable. IMPRESSION:No acute osseous abnormalities of the left foot. Signed: Elsa Merida MDReport Verified Date/Time: 02/25/2017 08:37:49 Reading Location: [facility] B1 C013Y CT Body Reading Room CT ABDOMEN AND PELVIS WITH CONTRAST*WW*2017-02-25 03:54:12CT ABDOMEN AND PELVIS WITH CONTRAST*WW* Location:[address] services are provided 02/25/2017 2:48 AMIndication:RLQ pain.Comparison: Not availableTechnique: Axial CT of the abdomen and pelvis followingthe bolusadministration of nonionic intravenous contrast. Sagittal and coronalreformatted images areprovided for interpretation. All CT scans at [facility] use dose modulation, iterative reconstruction, and or weight- baseddosing when appropriate to reduce radiation dose to as low as reasonablyachievable.Findings:Lower thorax: The lung bases are clear.Hepatobiliary:The liver is normal in size and density. Nonspecificcalcification is identified within the right hepatic lobe. No hepatic mass,intrahepatic biliary duct dilation or perihepatic fluid collection. Thegallbladder is normal.Spleen, pancreas and adrenal glands: NormalUrogenital:The kidneys are normal in size and density with no focal mass, hydronephrosis or stone. The ureters are normal in course and caliber. Theurinary bladder appears unremarkable. Reproductive organs are normal inappearance.Gastrointestinal:The bowel is normal in course and caliber. No free air or freefluid. The appendix is normal.Lymph nodes and retroperitoneum: No adenopathy or retroperitoneal mass.Vasculature:No acute abnormality.Bones and soft tissues:No acute abnormality.Impression:The appendix is normal with no acute intra-abdominal or pelvicabnormality.AMYLASE AND LIPASE 2017-02-25 02: 53:00 Test Item Value Reference Range Comments AMYLASE (test code=10A) 26 U/L 28-100 LIPASE (test code=60A) 106 IU/L 73-393 COMPREHENSIVE METABOLIC PHAM 2017-02-25 02:53:00 Test Item Value Reference Range Comments GLUCOSE (test code=06D) 171 mg/dL 75-100 SODIUM (test code=01A) 141 mmol/L 136-145 POTASSIUM (test code=01B) 3.4 mmol/L 3.6-5.1 CHLORIDE (test code=04A) 109 mmol/L 98-107 CO2 (test code=02A) 23 mmol/L 22-32 ANION GAP (test code=ANG) 12.4 mmol/L BUN (test code=05D) 2 mg/dL 7-18 CREATININE (test code=03E) 0.7 mg/dL 0.7-1.3 BUN/CREA (test code=BCR) 3 12-20 CALCIUM (test code=09D) 8.0 mg/dL 8.3-9.5 BILI TOTAL (test code=11A) 0.3 mg/dL 0.2-1.0 PROTEIN (test code=07D) 5.9 g/dL 6.4-8.2 ALBUMIN (test code=08D) 2.8 g/dL 3.5-4.8 GLOBULIN (test code=GLB) 3.1 g/dL 1.5-3.8 ALB/GLOB (test code=AGRR) 0.9 1.0-2.6 ALK PHOS (test code=35A) 81 IU/L 42-121 AST (test code=30A) 12 IU/L <=42 ALT (test code=31A) 13 IU/L <=78 PRO TIME AND PTT 2017-02-25 02:32:00 Test Item Value Reference Range Comments PT (test code=TT) 11.9 s 9.8-13.6 INR (test code=INR) 1.1 INRH (test code=INRH) SUGGESTED THERAPEUTIC RANGE FOR INR: 2.5 - 3.5 For Patients with Prosthetic Valves or Patients with recurrent Thromboembolic Events 2.0 - 3.0 For Most Other Applications PTT (test code=PTT) 26.7 s 20.2-38.0 PTTH (test code=PTTH) To monitor the effectiveness of heparin, we offer the Anti-Xa (Heparin Assay). It can be used for either unfractionated or LMW Heparin. Order Code is ANTI-XA URINALYSIS 2017-02-25 02:18:00 Test Item Value Reference Range Comments COLOR (test code=COLU) YELLOW YELLOW CLARITY (test code=CLA) CLEAR CLEAR GLUCOSE UR (test code=UA GLUCOSE) NEGATIVE NEGATIVE BILI UR (test code=BILE) NEGATIVE NEGATIVE KETONES UR (test code=ULISSES) NEGATIVE NEGATIVE SP GRAVITY (test code=SPGR) 1.010 1.005-1.030 PH UR (test code=PH) 6.0 4.5-8.0 PROTEIN UR (test code=PU) NEGATIVE NEGATIVE UROBIL UR (test code=UROQ) 0.2 EU/dL 0.2-1.0 NITRITE UR (test code=NITRITE) NEGATIVE NEGATIVE BLOOD UR (test code=UA BLOOD) NEGATIVE NEGATIVE LEUK ES UR (test code=LEUK) NEGATIVE NEGATIVE AUAM (test code=WAUAM) NO NO CBC (INCLUDES AUTOMATED DIFFERENTIAL)*[id number] 02:15:00 Test Item Value Reference Range Comments WBC (test code=WBC) 11.7 10\S\3/uL 4.5-11.0 RBC (test code=RBC) 4.73 10\S\6/uL 4.30-5.70 HGB (test code=HBG) 13.6 g/dL 14.0-18.0 HCT (test code=HCT) 41.3 % 35.0-46.0 MCV (test code=MCV) 87.3 fL 80.0-94.0 MCH (test code=MCH) 28.8 pg 27.0-31.0 MCHC (test code=MCHC) 32.9 g/dL 32.0-36.0 RDW (test code=RDW) 12.9 % 11.5-14.5 PLT (test code=PLT) 339 10\S\3/uL 130-400 MPV (test code=MPV) 9.3 fL 9.4-12.4 NEUTROP # (test code=NE#) 6.5 10\S\3/uL 2.0-8.0 LYMPH # (test code=LY#) 3.8 10\S\3/uL 1.2-4.0 MONOCYTE # (test code=MO#) 0.8 10\S\3/uL 0.0-1.1 EOSINOPH # (test code=EO#) 0.4 10\S\3/uL 0.0-0.7 BASOPHIL # (test code=BA#) 0.1 10\S\3/uL 0.0-0.3 IG # (test code=IG#) 0.04 10\S\3/uL 0.00-0.06 NRBC # (test code=NRBC#) 0.00 10\S\3/uL 0.00-0.01 NEUTROPH % (test code=NE%) 55.8 % 35.0-73.0 LYMPH % (test code=LY%) 32.4 % 20.0-55.0 MONO % (test code=MO%) 7.1 % 2.5-10.0 EOSINOPH % (test code=EO%) 3.7 % 0.0-5.0 BASOPHIL % (test code=BA%) 0.7 % 0.0-2.0 IG % (test code=IG%) 0.3 % 0.0-0.8 NRBC% (test code=NRBC%) 0.0 % 0.0-0.2 MANDIFF (test code=WMDIFF) NO NO RBC MORPH (test code=WRBCMOR) NORMAL RAPID DRUG SCREEN, [id number] 20:58:00 Test Item Value Reference Range Comments BARBITURATE URINE (BEAKER) (test pkie=864) Negative Negative BENZODIAZEPINE SCREEN URINE (BEAKER) (test Negative Negative xywp=947) COCAINE (METAB.) SCREEN (BEAKER) (test gowo=1393) Negative Negative METHADONE SCREEN (BEAKER) (test vyxq=8819) Negative Negative OPIATE SCREEN URINE (BEAKER) (test mwcu=538) Positive Negative CANNABINOID SCREEN URINE (BEAKER) (test wrne=068) Positive Negative AMPH/METHAMPH SCREEN (BEAKER) (test fvyx=7227) Negative Negative PHENCYCLIDINE SCREEN URINE (BEAKER) (test ogte=856) Negative Negative DRUG CUTOFF CONC.Cocaine 300 ng/mL Cannabinoid 50 ng/mLBenzodiazepine 200 ng/mLBarbiturate 200 ng/ mLPhencyclidine 25 ng/mLOpiate 300 ng/mLMethadone 300 ng/mLAmphetamine/ 1000 ng/mL MethamphetamineThis assay provides an unconfirmed qualitative test result for the clinical management of patients in emergency situations. Chain of custody not maintained. Some geyy-udq-woysmwo medications, as well as adulterants, may cause inaccurate results. Clinical correlation should be applied. A more comprehensivedrug screen or confirmation of a detected drug may be performed upon request.URINALYSIS W/ [id number] 20:27:00 Test Item Value Reference Range Comments COLOR (BEAKER) (test kwys=425) Light Yellow CLARITY (BEAKER) (test tsnl=249) Clear SPECIFIC GRAVITY UA (BEAKER) (test czvh=599) 1.016 1.001-1.035 PH UA (BEAKER) (test juyx=991) 6.0 5.0-8.0 PROTEIN UA (BEAKER) (test eykb=668) Negative Negative GLUCOSE UA (BEAKER) (test afjx=319) >500 mg/dL Negative KETONES UA (BEAKER) (test llng=976) Negative Negative BILIRUBIN UA (BEAKER) (test wweh=414) Negative Negative BLOOD UA (BEAKER) (test xxba=769) Negative Negative NITRITE UA (BEAKER) (test ourf=862) Negative Negative LEUKOCYTE ESTERASE UA (BEAKER) (test ncev=773) Negative Negative UROBILINOGEN UA (BEAKER) (test kifr=364) < mg/dL 0.2-1.0 RBC UA (BEAKER) (test wqmc=823) < /HPF WBC UA (BEAKER) (test auyv=185) 0 /HPF BACTERIA (BEAKER) (test pztd=648) Rare MUCUS (BEAKER) (test sjcj=5083) Rare SOURCE(BEAKER) (test taio=1437) KETONE, [id number] 20:12:00 Test Item Value Reference Range Comments KETONES, BLOOD (BEAKER) (test nulz=5003) 0.0 mmol/L <0.4 POCT-GLUCOSE [id number] 20:08:00 Test Item Value Reference Range Comments POC-GLUCOSE METER (BEAKER) 241 mg/dL 70-110 TESTED AT [facility] [id number] [place] [address] (test qxcx=1786) [facility] [address] BLOOD GAS, [id number] 20:05:00 Test Item Value Reference Range Comments PH VENOUS (BEAKER) (test jdpk=958) 7.42 7.32-7.42 PCO2 VENOUS (BEAKER) (test awqu=526) 36 mmHg 41-51 PO2 VENOUS (BEAKER) (test vdfg=706) 43 mmHg 25-40 O2 SATURATION VENOUS (BEAKER) (test xirr=875) 80.3 % 40.0-70.0 HCO3 VENOUS (BEAKER) (test jkar=273) 23 mmol/L 21-29 BASE EXCESS VENOUS (BEAKER) (test tslc=435) -1.4 mmol/L -2.0-3.0 PATIENT TEMPERATURE (BEAKER) (test lmxj=4893) 36.7 C CREATINE KINASE (CK), TOTAL AND [id number] 20:05:00 Test Item Value Reference Range Comments CREATINE KINASE TOTAL (BEAKER) (test zbbr=963) 57 U/L 30-300 CREATINE KINASE-MB (BEAKER) (test thpu=826) 0.6 ng/mL 0.0-4.9 CREATINE KINASE-MB INDEX (BEAKER) (test fnjc=207) 1.1 % CK-MB Reference Range:<5 Normal5-10 Borderline>10 AbnormalTROPONIN [id number] 20:05:00 Test Item Value Reference Range Comments TROPONIN I (BEAKER) (test kthh=595) < ng/mL 0.00-0.15 Troponin I (TnI) levels must be interpreted [...] failure, acidosis, acute neurological disease, and persistent tachyarrhythmia.B-TYPE NATRIURETIC FACTOR (BNP) 20:04:00 Test Item Value Reference Range Comments B-TYPE NATRIURETIC PEPTIDE (BEAKER) (test < pg/mL 0-100 rkiv=561) [id number] 19:59:00 Test Item Value Reference Range Comments D-DIMER QUANTITATIVE (MarquiAKER) (test wtsh=103) < MG/L FEU <0.50 Intended Use: The D-Dimer Assay can be used to aid in the diagnosis of Deep Vein Thrombosis (DVT) and Pulmonary Embolism Disease (PED).In patients with low pre-test probability, various studies concerning STA Liatest D-dimer test have reported that with a cutoff value of 0.50 MG/L FEU, the Negative Predictive Value (NPV) regarding the exclusion of thrombosis is within 95-100% range.RAD, CHEST, 1 VIEW, NON [id number] 19:59:00Reason for exam:->cpShould this be performed at the bedside?->YesFINAL REPORT Clinical History: cp Comparison Study: None Findings: The heartand lungs are within normal limits. The pleural spaces are clear. No significant bony or soft tissue abnormalities are seen. Impression: No active cardiopulmonary disease. Signed: Carlos Severino MDReport Verified Date/Time: 01/19/2017 19:59:25 Reading Location: [address] Consult Reading Room COMPREHENSIVE METABOLIC [id number] 19:58:00 Test Item Value Reference Range Comments TOTAL PROTEIN (BEAKER) 6.7 gm/dL 6.0-8.5 Specimen moderately (test mhpz=398) hemolyzed ALBUMIN (BEAKER) (test 3.5 g/dL 3.5-5.0 Specimen moderately nlga=7768) hemolyzed ALKALINE PHOSPHATASE 84 U/L 30-115 (BEAKER) (test utbs=972) BILIRUBIN TOTAL (BEAKER) 0.2 mg/dL 0.1-1.3 Specimen moderately (test gznv=200) hemolyzed SODIUM (BEAKER) (test 138 meq/L 135-148 hgmc=105) POTASSIUM (BEAKER) (test 3.8 meq/L 3.5-5.5 Specimen moderately thma=162) hemolyzed CHLORIDE (BEAKER) (test 106 meq/L 98-106 sjnt=832) CO2 (BEAKER) (test 21 meq/L 20-31 tzne=553) BLOOD UREA NITROGEN 6 mg/dL 10-26 (BEAKER) (test cdhp=684) CREATININE (BEAKER) (test 0.84 mg/dL 0.50-1.20 Specimen moderately mhgz=271) hemolyzed GLUCOSE RANDOM (BEAKER) 289 mg/dL 70-110 (test sngm=149) CALCIUM (BEAKER) (test 8.8 mg/dL 8.5-10.5 fhiq=834) AST (SGOT) (BEAKER) (test 20 U/L 5-40 Specimen moderately btkw=467) hemolyzed ALT (SGPT) (BEAKER) (test 13 U/L 6-50 Specimen moderately dzay=915) hemolyzed EGFR (BEAKER) (test 103 mL/min/1.73 sq ESTIMATED GFR IS NOT luls=6414) m ACCURATE CREATININE CLEARANCE IN PREDICTING GLOMERULAR FILTRATION RATE. ESTIMATED GFR IS NOT APPLICABLE FOR DIALYSIS PATIENTS. CBC W/PLT COUNT & AUTO [id number] 19:42:00 Test Item Value Reference Range Comments WHITE BLOOD CELL COUNT (BEAKER) (test wcdp=274) 12.4 K/ L 4.0-10.0 RED BLOOD CELL COUNT (BEAKER) (test djgz=562) 4.98 M/ L 4.20-5.80 HEMOGLOBIN (BEAKER) (test sfej=692) 14.4 GM/DL 13.0-16.8 HEMATOCRIT (BEAKER) (test oxco=155) 43.5 % 40.0-50.0 MEAN CORPUSCULAR VOLUME (BEAKER) (test epqp=049) 87.4 fL 82.0-98.0 MEAN CORPUSCULAR HEMOGLOBIN (BEAKER) (test 28.8 pg 27.0-33.0 aovv=575) MEAN CORPUSCULAR HEMOGLOBIN CONC (BEAKER) (test 33.0 GM/DL 32.0-36.0 crvz=493) RED CELL DISTRIBUTION WIDTH (BEAKER) (test 13.9 % 12.0-15.0 ojgu=062) PLATELET COUNT (BEAKER) (test ttgm=497) 313 K/CU MM 150-430 MEAN PLATELET VOLUME (BEAKER) (test nhpk=465) 8.6 fL 6.5-10.5 NUCLEATED RED BLOOD CELLS (BEAKER) (test 0 /100 WBC 0-0 ivlu=383) NEUTROPHILS RELATIVE PERCENT (BEAKER) (test 60 % xdrk=990) LYMPHOCYTES RELATIVE PERCENT (BEAKER) (test 29 % udnb=558) MONOCYTES RELATIVE PERCENT (BEAKER) (test 7 % cpfw=834) EOSINOPHILS RELATIVE PERCENT (BEAKER) (test 3 % nudc=159) BASOPHILS RELATIVE PERCENT (BEAKER) (test 1 % cmnt=741) NEUTROPHILS ABSOLUTE COUNT (BEAKER) (test 7.40 K/ L 1.80-8.00 jzqf=613) LYMPHOCYTES ABSOLUTE COUNT (BEAKER) (test 3.60 K/ L 1.48-4.50 euyl=255) MONOCYTES ABSOLUTE COUNT (BEAKER) (test 0.80 K/ L 0.00-1.30 topb=231) EOSINOPHILS ABSOLUTE COUNT (BEAKER) (test 0.40 K/ L 0.00-0.50 tbkm=561) BASOPHILS ABSOLUTE COUNT (BEAKER) (test 0.20 K/ L 0.00-0.20 nono=226) POCT-GLUCOSE [id number] 19:02:00 Test Item Value Reference Range Comments POC-GLUCOSE METER (BEAKER) 367 mg/dL 70-110 TESTED AT [address] (test jqcq=5141) [facility] [id number] CT, SPINE, CERVICAL, WO [id number] 18:25:00Reason for exam:->NECK PAINWhat is the patient's sedation requirement?->No SedationFINAL REPORT EXAMINATION: CERVICAL SPINE NONCONTRAST CT CLINICAL INDICATION: TRAUMATIC INJURY, NECK PAIN TECHNIQUE: Axial noncontrast tomographic images were acquired through thecervical spine. Following postprocessing, coronal and sagittal reformatted images were created and reviewed. Examination was performed with the patient in a C-spine collar. The exam was performed according to our departmental dose optimization program which includes automated exposure control, adjustment of the mA and/or kV according to patient's size and/or use of iterative reconstructive technique.FINDINGS: No evidence of a basilar skull fracture. [...] process, etiology and chronicity indeterminate. However, the well- corticated margin and absence of an associated donor site suggest a possible chronic process. The prevertebral soft tissues are unremarkable. Noncontrast images of the larynx, trachea, thyroid gland, visualized trachea and proximal esophagus are unremarkable. IMPRESSION: No evidence of acute cervical spine fracture or malalignment. Mild straightening of normal cervical lordosis. Signed : Nba Mittal MDReport Verified Date/Time: 01/15/2017 18:25:26 Reading Location: [address] Reading Room Electronically signed by: NBA MITTAL M.D.on 01/15/2017 06:25 PMCT, BRAIN, WITHOUT [id number] 18:14:00Reason for exam:->NECK PAINWhat is the patient's sedation requirement ?->No SedationFINAL REPORT EXAMINATION NONCONTRAST HEAD CT SCAN CLINICAL HISTORY:Headache, fall COMPARISON CT: None EPISODE OF CARE : Initial TECHNIQUE: Axial tomographic images were obtained through the brain from the vertex to the skull base without intravenous contrast. The exam was performed according to our departmental dose optimization program which includes automated exposure control, adjustment of the mA and/or kV according to patient's size and/or use of iterative reconstructivetechnique. FINDINGS: No evidence of acute skull fracture, intracranial hemorrhage, mass effect, cerebral edema, midline shift, hydrocephalus or abnormal extra-axial fluid collection. The orbits are unremarkable. The visualized paranasal sinuses, tympanic cavities and mastoid air cells are pneumatized.IMPRESSION: No specific evidence of an acute cranial process. MRI could be performed for further evaluation if warranted. Signed: Nba Mittal Verified Date/Time: 18:14:13 Reading Location: [address] Reading Room XR KNEE RIGHT 3 [id number] 22:22:15EXAM: Portable right knee series, 3 viewsLocation: [id number]: Fell on right knee and twisted right kneeCOMPARISON: None.DISCUSSION: Frontal, oblique, and crosstable lateral views of the right kneeare submitted. No fracture, dislocation, lytic or blastic lesions areidentified. Joint spaces appear well preserved. No joint effusion is seen.IMPRESSION:No acute bony abnormalities.XR ANKLE RIGHT COMPLETE 3 [id number] 22:21:22EXAM: Right ankle series, 3 viewsLocation: [id number]: Fell, twisted right ankleCOMPARISON: None.DISCUSSION: Frontal, oblique, and lateral views of the right ankle aresubmitted. There is a questionable hairline fracture of the distal fibula, onlyseen on the oblique view near the ankle mortise. No other evidence of fractureis seen.IMPRESSION: Questionable hairline fracture of the distal fibula.RAPID DRUG SCREEN, [id number] 23:10:00 Test Item Value Reference Range Comments BARBITURATE URINE (BEAKER) (test zypg=870) Negative Negative BENZODIAZEPINE SCREEN URINE (BEAKER) (test Negative Negative objq=879) COCAINE (METAB.) SCREEN (BEAKER) (test pylb=0616) Negative Negative METHADONE SCREEN (BEAKER) (test wrok=5777) Negative Negative OPIATE SCREEN URINE (BEAKER) (test iezf=054) Positive Negative CANNABINOID SCREEN URINE (BEAKER) (test eysz=395) Negative Negative AMPH/METHAMPH SCREEN (BEAKER) (test qaom=4665) Negative Negative PHENCYCLIDINE SCREEN URINE (BEAKER) (test jawl=844) Negative Negative DRUG CUTOFF CONC.Cocaine 300 ng/mL Cannabinoid 50 ng/mLBenzodiazepine 200 ng/mLBarbiturate 200 ng/ mLPhencyclidine 25 ng/mLOpiate 300 ng/mLMethadone 300 ng/mLAmphetamine/ 1000 ng/mL MethamphetamineThis assay provides an unconfirmed qualitative test result for the clinical management of patients in emergency situations. Chain of custody not maintained. Some lceu-rhl-tzfyjlq medications, as well as adulterants, may cause inaccurate results. Clinical correlation should be applied. A more comprehensivedrug screen or confirmation of a detected drug may be performed upon request.URINALYSIS W/ [id number] 22:55:00 Test Item Value Reference Range Comments COLOR (BEAKER) (test lxqg=184) Yellow CLARITY (BEAKER) (test uvlp=994) Clear SPECIFIC GRAVITY UA (BEAKER) (test tucs=353) 1.025 1.001-1.035 PH UA (BEAKER) (test tnun=843) 6.0 5.0-8.0 PROTEIN UA (BEAKER) (test iqud=189) Negative Negative GLUCOSE UA (BEAKER) (test alpm=923) Negative Negative KETONES UA (BEAKER) (test ieyw=464) Negative Negative BILIRUBIN UA (BEAKER) (test mjdg=739) Negative Negative BLOOD UA (BEAKER) (test sjpr=380) Negative Negative NITRITE UA (BEAKER) (test yvov=804) Negative Negative LEUKOCYTE ESTERASE UA (BEAKER) (test swmm=210) Negative Negative UROBILINOGEN UA (BEAKER) (test qxms=956) 0.2 mg/dL 0.2-1.0 BACTERIA (BEAKER) (test iwnl=451) Occasional MUCUS (BEAKER) (test eqqp=2535) Many RBC UA-MANUAL (BEAKER) (test qqlu=2149) <5 /HPF WBC UA-MANUAL (BEAKER) (test orql=8777) <5 /HPF SQUAMOUS EPITHELIAL MANUAL (BEAKER) (test <5 /HPF djor=7365) SOURCE(BEAKER) (test xnnq=0706) XR SHOULDER LEFT 3 [id number] 09:00:14EXAMINATION: XR SHOULDER LEFT 3 VIEWS.LOCATION: D4.HISTORY: shoulder pain while carrying heavy load.COMPARISON: Left shoulder x-ray 04/16/2015.FINDINGS/IMPRESSION:Three views of left shoulder demonstrates acute osseous abnormality. Nodislocation. Left clavicle appears intact. Visualized left lung parenchymaappears unremarkable.
--- OUTSIDE RECORDS SUMMARY | 2017-08-10 22:57 | XMS REPORT | Clinical Summary ---
:1980 Author Organization [facility] Address [address] [place] [address] Care Team Providers Name Role Phone Asked, No Pcp Primary Care Provider Unavailable Allergies Active Allergy Reactions Severity Noted Date Comments Cyclobenzaprine Hives 08/11/2016 Ibuprofen Nausea And Vomiting 05/20/2016 Ketorolac GI Intolerance 01/01/2017 Current Medications Prescription Sig. Disp. Refills Start Date End Date Status metFORMIN Take 500 mg by Active (GLUCOPHAGE) 500 mg mouth 2 (two) tablet times a day with meals. aspirin 81 mg Chew 81 mg 2 Active chewable tablet (two) times a day. gabapentin Take 300 mg by Active (NEURONTIN) 300 mg mouth 2 (two) capsule times a day. gabapentin Take 100 mg by Discontinued (NEURONTIN) 100 mg mouth 2 (two) 7 capsule times a day. traMADol (ULTRAM) 50 Take 1 tablet 20 tablet 0 10/21/2016 mg tablet (50 mg total) 7 by mouth every 6 (six) hours as needed for moderate pain for up to 10 days. acetaminophen-codein Take 1-2 15 tablet 0 10/21/2016 e (TYLENOL WITH tablets by 7 CODEINE #3) 300-30 mouth every 6 mg per tablet (six) hours as needed for moderate pain for up to 10 days. acetaminophen-codein Take 1 tablet 10 tablet 0 11/04/2016 e (TYLENOL WITH by mouth every 7 CODEINE #3) 300-30 6 (six) hours mg per tablet as needed for moderate pain for up to 10 doses. acetaminophen Take 1 tablet 20 tablet 0 12/08/2016 (TYLENOL EXTRA (500 mg total) 7 STRENGTH) 500 MG by mouth every tablet 6 (six) hours as needed for mild pain for up to 3 days. ondansetron ODT Take 1 tablet 9 tablet 0 01/01/2017 (ZOFRAN-ODT) 4 MG (4 mg total) 7 disintegrating by mouth every tablet 8 (eight) hours as needed for nausea or vomiting for up to 3 days. loperamide (IMODIUM) Take 1 capsule 12 capsule 0 01/01/2017 2 mg capsule (2 mg total) 7 by mouth 4 (four) times a day as needed for diarrhea for up to 4 days. acetaminophen Take 2 tablets 20 tablet 0 01/01/2017 (TYLENOL) 325 MG (650 mg total) 7 tablet by mouth every 6 (six) hours as needed for mild pain, moderate pain or fever for up to 7 days. acetaminophen Take 1 tablet 20 tablet 0 02/17/2017 (TYLENOL EXTRA (500 mg total) 7 STRENGTH) 500 MG by mouth every tablet 6 (six) hours as needed for mild pain for up to 5 days. docusate sodium Take 1 capsule 60 capsule 0 02/17/2017 (COLACE) 100 MG (100 mg total) 7 capsule by mouth every 12 (twelve) hours for 30 days. metFORMIN Take 500 mg by Discontinued (GLUCOPHAGE) 500 mg mouth. 7 tablet acetaminophen Take 2 tablets 30 tablet 0 02/25/2017 (TYLENOL EXTRA (1,000 mg 7 STRENGTH) 500 MG total) by tablet mouth every 6 (six) hours as needed for mild pain for up to 30 days. traMADol (ULTRAM) 50 Take 100 mg by 0 03/17/2017 Discontinued mg tablet mouth every 6 8 (six) hours as needed. for pain Active Problems Problem Noted Date Chest pain 11/21/2016 Encounters Date Type Specialty Care Team Description 08/09/2017 Emergency Emergency Medicine Wingkun, Strain of neck muscle, initial encounter (Primary Dx); Liana Davis MD Essential hypertension 08/08/2017 Emergency Emergency Medicine Jeffery Lind MD Fall from horse, initial encounter (Primary Dx); Acute nonintractable headache, unspecified headache type; Neck pain; Upper back pain; Dehydration; Multiple nodules of lung; Drug-seeking behavior 07/15/2017 Emergency Emergency Medicine Isra Fairchild Atypical chest pain DO Tommy (Primary Dx) 04/17/2017 Emergency Emergency Medicine Prabhjot Montalvo MD Acute pain of left shoulder (Primary Dx) 04/04/2017 - Emergency General Internal [facility], [facility] Bin, Other chest pain 04/05/2017 Medicine (Primary Dx) Akira Jenkins MD 03/23/2017 Emergency Emergency Medicine Adria Mckeon Right upper quadrant abdominal pain (Primary Dx); DO Lisandra Drug-seeking behavior 03/01/2017 - Emergency General Surgery Andrew Gallegos Other chest pain 03/02/2017 BECCA Delgado (Primary Dx) Abdirahman Montesinos MD Al-Lahiq, Maha, MD 02/26/2017 Emergency Emergency Medicine Prabhjot Montalvo MD Chest pain, unspecified type (Primary Dx) 02/25/2017 Emergency Emergency Medicine Dario Blanco Mild ankle sprainNicol MD left, initial encounter (Primary Dx) 02/17/2017 Emergency Emergency Medicine Caleb Obando Abdominal pain, unspecified abdominal location (Primary Dx); MD Ariel Constipation, unspecified constipation type 02/05/2017 Emergency Emergency Medicine Andrew Gallegos Sprain of left ankle, BECCA Delgado unspecified ligamentJez John initial encounter DO Harinder (Primary Dx) 01/23/2017 - Emergency Emergency Medicine Andrew Gallegos Sprain of left ankle, 01/24/2017 BECCA Delgado unspecified ligamentTopher Daniel initial encounter MD Ariel (Primary Dx) 01/19/2017 Emergency Emergency Medicine [facility], [facility] Bin, Neck pain ( Primary Dx) 01/01/2017 Emergency Emergency Medicine Ezequiel Min H, Nausea vomiting and diarrhea (Primary Dx); Right flank pain 12/16/2016 - Emergency Emergency Medicine Andrew Gallegos Sprain of left knee , unspecified ligament, initial encounter (Primary Dx); 12/17/2016 BECCA Delgado Strain of left hip and thigh, initial encounter Shimon Torres MD 12/08/2016 Emergency Emergency Medicine Kosta May Sprain of left MD Shimon shoulder, unspecified shoulder sprain type, initial encounter (Primary Dx) 11/30/2016 Emergency Emergency Medicine Mckeon, Adria Foot sprain, left, Mcguire-Lac, DO initial encounter (Primary Dx) 11/21/2016 Emergency Emergency Medicine Ramón Guadalupe Chest pain, unspecified type (Primary Dx); MD Giacomo Hyperglycemia Akira Jenkins MD 11/07/2016 Emergency Emergency Medicine Andrew Gallegos Intractable episodic Danny, IT BUSINESS PROCESS ARCHITECT-C headache, unspecified Collins, Ramón headache type (Primary MD Giacomo Dx) 11/04/2016 Emergency Emergency Medicine Andrew Gallegos 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, Danny, IT BUSINESS PROCESS ARCHITECT-C unspecified ligament, JaguarAbdirahman martinez initial encounter MD Randy (Primary Dx) 10/21/2016 Emergency Emergency Medicine Kanika Iglesias, Acute bilateral low MD back pain without sciatica (Primary Dx) 09/19/2016 Emergency Emergency Medicine Jazzy Schroeder PA-C Kanika Iglesias MD 09/04/2016 Emergency Emergency Medicine Tami Wyman, Chest pain, unspecified MD type (Primary Dx) after 08/09/2016 Social History Tobacco Use Types Packs/Day Years Used Date Current Every Day Smoker Cigarettes 20 Smokeless Tobacco: Never Used Tobacco Cessation: Ready to Quit: Yes Alcohol Use Drinks/Week oz/Week Comments No Sex Assigned at Date Recorded Not on file Last Filed Vital Signs Vital Sign Reading Time Taken Blood Pressure 160/95 08/09/2017 8:55 AM CDT Pulse 104 08/09/2017 8:55 AM CDT Temperature 36.9 C (98.4 F) 08/09/2017 8:55 AM CDT Respiratory Rate 17 08/09/2017 8:55 AM CDT Oxygen Saturation 100% 08/09/2017 8:55 AM CDT Inhaled Oxygen Concentration - - Weight 75.8 kg (167 lb) 08/09/2017 8:55 AM CDT Height 177.8 cm (5' 10") 08/09/2017 8:55 AM CDT Body Mass Index 23.96 08/09/2017 8:55 AM CDT Plan of Treatment Health Maintenance Due Date Last Done Comments INFLUENZA VACCINE 11/22/2017 Procedures Procedure Name Priority Date/Time Associated Comments Diagnosis ECHOCARDIOGRAM 2D Routine 04/05/2017 8:00 Results for this COMPLETE W MMODE AM SR SOLUTIONS CONSULTANT procedure are in SPECTRAL COLOR DOPPLER the results ([id number]) section. after 08/09/[address] Lumbar Spine Wo Contrast (08/08/2017 10:45 AM) Specimen Performing [facility] [address] [address] Narrative EXAMINATION:CT LUMBAR SPINE WO CONTRAST CLINICAL HISTORY:fall from horseback pain COMPARISON:None. TECHNIQUE: Axial scans obtained through the lumbar spine. Sagittal and coronal reconstructions performed. A total of [address] imaging was performed with iterative reconstruction technique and/or automated exposure control to reduce radiation dose. FINDINGS: The lumbar lordosis is well maintained. There are 5 lumbar vertebrae. There is no evidence of compression. Disc space heights are well-maintained throughout. No spondylolysis or spondylolisthesis. L5-S1: No significant bony canal stenosis. No foraminal encroachment. Slight bilateral facet hypertrophy L4-5: No bony canal stenosis. No foraminal encroachment. Mild bilateral facet hypertrophy L3-4: No bony canal stenosis. No foraminal encroachment or significant facet hypertrophy. L2-3: No bony canal stenosis. No foraminal encroachment or significant facet hypertrophy. L1-2: No bony canal stenosis. No foraminal encroachment. No significant facet hypertrophy. Diminutive anterolateral osteophytic change No transverse process fracture in the lumbar spine. No paravertebral soft tissue hematoma in the lumbar region. IMPRESSION: Minimal degenerative facet hypertrophy L5-S1 and L4-5. Degenerative anterolateral osteophytic changes at L1-2. No fracture or compression No acute bony abnormality lumbar spine [id number] Procedure Note Interface, Radiology Results Incoming - 08/08/2017 11:28 AM CDT EXAMINATION: CT LUMBAR SPINE WO CONTRAST CLINICAL HISTORY: fall from horse back pain COMPARISON: None. TECHNIQUE: Axial scans obtained through the lumbar spine. Sagittal and coronal reconstructions performed. A total of [address] imaging was performed with iterative reconstruction technique and/or automated exposure control to reduce radiation dose. FINDINGS: The lumbar lordosis is well maintained. There are 5 lumbar vertebrae. There is no evidence of compression. Disc space heights are well-maintained throughout. No spondylolysis or spondylolisthesis. L5-S1: No significant bony canal stenosis. No foraminal encroachment. Slight bilateral facet hypertrophy L4-5: No bony canal stenosis. No foraminal encroachment. Mild bilateral facet hypertrophy L3-4: No bony canal stenosis. No foraminal encroachment or significant facet hypertrophy. L2-3: No bony canal stenosis. No foraminal encroachment or significant facet hypertrophy. L1-2: No bony canal stenosis. No foraminal encroachment. No significant facet hypertrophy. Diminutive anterolateral osteophytic change No transverse process fracture in the lumbar spine. No paravertebral soft tissue hematoma in the lumbar region. IMPRESSION: Minimal degenerative facet hypertrophy L5-S1 and L4-5. Degenerative anterolateral osteophytic changes at L1-2. No fracture or compression No acute bony abnormality lumbar spine [id number] CT Thoracic Spine Wo Contrast (08/08/2017 10:45 AM) Specimen Performing [place] [address] Narrative EXAMINATION:CT THORACIC SPINE WO CONTRAST CLINICAL HISTORY:fall from horseupper back pain COMPARISON:None. TECHNIQUE: CT imaging was performed with iterative reconstruction technique and /or automated exposure control to reduce radiation dose. IMPRESSION: Thoracic spine alignment is within normal limits. Mild multilevel endplate degenerative changes. No moderate or severe canal/foraminal narrowing. No fractures or aggressive bony lesions. [id number] Procedure Note Hm Interface, Radiology Results Incoming - 08/08/2017 11:21 AM CDT EXAMINATION: CT THORACIC SPINE WO CONTRAST CLINICAL HISTORY: fall from horse upper back pain COMPARISON: None. TECHNIQUE: CT imaging was performed with iterative reconstruction technique and /or automated exposure control to reduce radiation dose. IMPRESSION: Thoracic spine alignment is within normal limits. Mild multilevel endplate degenerative changes. No moderate or severe canal/foraminal narrowing. No fractures or aggressive bony lesions. [id number] CT Cervical Spine Wo Contrast (08/08/2017 10:30 AM) Specimen Performing Laboratory [facility] [address] [place] [address] Narrative EXAMINATION: CT CERVICAL SPINE WO CONTRAST CLINICAL HISTORY: fall from horseneck pain COMPARISON:None TECHNIQUE: Axial noncontrast enhanced images of the cervical spine were obtained with coronal and sagittal reconstructed algorithms. CT imaging was performed with iterative reconstruction technique and/or automated exposure control to reduce radiation dose. FINDINGS: No fracture. No subluxation. No suspicious osseous lesion. No prevertebral edema or neck mass identified. Multiple nodules on the right upper lobe of the lung, the largest visualized measuring 5 mm. Axial images through the disc spaces demonstrate the following: C1-C2: Degenerative changes atlantodental articulation without significant spinal canal stenosis. C2-C3: Mild facet arthropathy without significant spinal canal or neural foraminal stenosis. C3-C4: No significant posterior disc disease, spinal canal or neural foraminal stenosis. C4-C5: No significant posterior disc disease, spinal canal or neural foraminal stenosis. C5-C6: No significant posterior disc disease, spinal canal or neural foraminal stenosis. C6-C7: No significant posterior disc disease, spinal canal or neural foraminal stenosis. C7-T1: No significant posterior disc disease, spinal canal or neural foraminal stenosis. IMPRESSION: No fracture or traumatic subluxation. Minimal degenerative changes of the upper cervical spine. Multiple nodules in the right upper lobe of the lung. Recommend dedicated nonemergent CT chest for further assessment. [facility]-[id number] Procedure Note [facility], Radiology Results - 08/08/2017 11:05 AM CDT EXAMINATION: CT CERVICAL SPINE WO CONTRAST CLINICAL HISTORY: fall from horse neck pain COMPARISON: None TECHNIQUE: Axial noncontrast enhanced images of the cervical spine were obtained with coronal and sagittal reconstructed algorithms. CT imaging was performed with iterative reconstruction technique and/or automated exposure control to reduce radiation dose. FINDINGS: No fracture. No subluxation. No suspicious osseous lesion. No prevertebral edema or neck mass identified. Multiple nodules on the right upper lobe of the lung, the largest visualized measuring 5 mm. Axial images through the disc spaces demonstrate the following: C1-C2: Degenerative changes atlantodental articulation without significant spinal canal stenosis. C2-C3: Mild facet arthropathy without significant spinal canal or neural foraminal stenosis. C3-C4: No significant posterior disc disease, spinal canal or neural foraminal stenosis. C4-C5: No significant posterior disc disease, spinal canal or neural foraminal stenosis. C5-C6: No significant posterior disc disease, spinal canal or neural foraminal stenosis. C6-C7: No significant posterior disc disease, spinal canal or neural foraminal stenosis. C7-T1: No significant posterior disc disease, spinal canal or neural foraminal stenosis. IMPRESSION: No fracture or traumatic subluxation. Minimal degenerative changes of the upper cervical spine. Multiple nodules in the right upper lobe of the lung. Recommend dedicated nonemergent CT chest for further assessment. [facility]-[id number] CT Head Wo Contrast (08/08/2017 10:30 AM)Only the most recent of2 resultswithin the time period is included. Specimen Performing Laboratory [facility] [address] [place] [address] Narrative EXAMINATION:CT HEAD WO CONTRAST CLINICAL HISTORY:fall from horsehead injury COMPARISON:CT head 11/07/2016 TECHNIQUE: Noncontrast head CT performed using radiation dose reduction techniques.Technical factors are evaluated and adjusted to ensure appropriate moderation of exposure.Automated dose management technology is applied to adjust radiation exposure while achieving a diagnostic quality image. FINDINGS: No evidence of acute intracranial hemorrhage, mass, mass effect, midline shift , or acute infarct. Ventricles and sulci are normal in appearance for patient's age. Basal cisterns are clear. Calvarium is intact. Orbits are normal in appearance. Mild scattered paranasal sinus mucosal thickening. Mild mucosal thickening of the right maxillary sinus is possibly odontogenic in etiology with periapical lucency of the posterior most right maxillary molar with possible dehiscence. Mastoid air cells are clear. IMPRESSION: 1. No CT evidence of acute intracranial abnormality. 2. Possible mild odontogenic sinusitis right maxillary sinus. [facility]-[id number] Procedure Note Interface, Radiology Results Incoming - 08/08/2017 11:00 AM CDT EXAMINATION: CT HEAD WO CONTRAST CLINICAL HISTORY: fall from horse head injury COMPARISON: CT head 11/07/2016 TECHNIQUE: Noncontrast head CT performed using radiation dose reduction techniques. Technical factors are evaluated and adjusted to ensure appropriate moderation of exposure. Automated dose management technology is applied to adjust radiation exposure while achieving a diagnostic quality image. FINDINGS: No evidence of acute intracranial hemorrhage, mass, mass effect, midline shift , or acute infarct. Ventricles and sulci are normal in appearance for patient's age. Basal cisterns are clear. Calvarium is intact. Orbits are normal in appearance. Mild scattered paranasal sinus mucosal thickening. Mild mucosal thickening of the right maxillary sinus is possibly odontogenic in etiology with periapical lucency of the posterior most right maxillary molar with possible dehiscence. Mastoid air cells are clear. IMPRESSION: 1. No CT evidence of acute intracranial abnormality. 2. Possible mild odontogenic sinusitis right maxillary sinus. [facility]-[id number] Estimated GFR (08/08/2017 10:11 AM)Only the most recent of9 resultswithin the time period is included. Component Value Ref Range GFR Non Af Amer >90 mL/min/1.73 m2 GFR Af Amer >90 mL/min/1.73 m2 Comment: Chronic kidney disease: <60 mL/min/1.73m2 Kidney failure: <15 mL/min/1.73m2 The estimated GFR is calculated from the IDMS-traceable Modification of Diet in Renal Disease Equation. The accuracy of the calculation is poor when the creatinine is normal. Calculated values >90 mL/min/1.73m2 are not reported. This equation has not been validated in children (<18 years), women, the elderly (>70 years), or ethnic groups other than Caucasians and Americans. Specimen Performing Laboratory Plasma specimen [facility] [address] [place] [address] [place] [address] CBC with platelet and differential (08/08/2017 10:11 AM)Only the most recent of9 resultswithin the time period is included. Component Value Ref Range WBC 8.84 4.50 - 11.00 k/uL RBC 4.51 4.40 - 6.00 m/uL HGB 12.1 (L) 14.0 - 18.0 g/dL HCT 37.4 (L) 41.0 - 51.0 % MCV 82.9 82.0 - 100.0 fL MCH 26.8 (L) 27.0 - 34.0 pg MCHC 32.4 31.0 - 37.0 g/dL RDW - SD 41.7 37.0 - 55.0 fL MPV 8.5 (L) 8.8 - 13.2 fL Platelet count 330 150 - 400 k/uL Nucleated RBC 0.00 /100 WBC Neutrophils 70.9 (H) 39.0 - 69.0 % Lymphocytes 21.4 (L) 25.0 - 45.0 % Monocytes 4.8 0.0 - 10.0 % Eosinophils 2.1 0.0 - 5.0 % Basophils 0.5 0.0 - 1.0 % Specimen Performing Laboratory Blood [facility] [id number] [place] [address] [place] [address] Comprehensive metabolic panel (08/08/2017 10:11 AM)Only the most recent of6 resultswithin the time period is included. Component Value Ref Range Sodium 138 135 - 148 mEq/L Potassium 3.9 3.5 - 5.0 mEq/L Chloride 102 98 - 112 mEq/L CO2 23 (L) 24 - 31 mEq/L Anion gap 13 7 - 15 mEq/L Comment: Starting from July , anion gap calculation no longer incorporates potassium. Please note the change. BUN 7 6 - 20 mg/dL Creatinine 0.6 (L) 0.7 - 1.2 mg/dL Glucose 153 (H) 65 - 99 mg/dL Calcium 8.6 8.3 - 10.2 mg/dL Protein 5.8 (L) 6.3 - 8.3 g/dL Comment: [place] 4.6-7.0 g/dL 1 week 4.4-7.6 g/dL 7 months-1year5.1-7.3 g/dL 1-2 years5.6-7.5 g/dL >3 years6.0-8.0 g/dL 18-150 6.3-8.3 g/dL Albumin 3.2 (L) 3.5 - 5.0 g/dL A/G ratio 1.2 0.7 - 3.8 Alkaline phosphatase 94 40 - 129 U/L AST 8 (L) 10 - 50 U/L ALT 9 5 - 50 U/L Total bilirubin 0.3 0.0 - 1.2 mg/dL Specimen Performing Laboratory Plasma specimen [facility] OF [facility]OLOG[facility] MEDICINE [address] [place] [address] ECG 12 lead (08/08/2017 10:10 AM)Only the most recent of9 resultswithin the time period is included. Component Value Ref Range Ventricular rate 76 Atrial rate 76 AR interval 134 QRSD interval 84 QT interval 376 QTC interval 423 P axis 1 19 QRS axis 1 40 T wave axis 32 EKG impression Normal sinus rhythm-Normal ECG-In automated comparison with ECG of 15-JUL-2017 08:35,-No significant change was found- Specimen Performing Laboratory [facility] [address] [place] [address] ECG ED Preliminary Interpretation - NOT AN ORDER (07/15/2017 8:37 AM)Only the most recent of6 resultswithin the time period is included. Alyson Fairchild DO 07/15/2017 10:25 AM ECG ED Preliminary Interpretation - Not an Order Performed by: ISRA FAIRCHILD Authorized by: ISRA FAIRCHILD ECG reviewed by ED Physician in the absence of a tibco developer: yes Interpretation: Interpretation: normal Rate: ECG rate:73 ECG rate assessment: normal Rhythm: Rhythm: sinus rhythm Ectopy: Ectopy: none QRS: QRS axis:Normal Conduction: Conduction: normal ST segments: ST segments:Normal T waves: T waves: normal POC glucose (04/05/2017 8:24 AM)Only the most recent of4 resultswithin the time period is included. Component Value Ref Range POC glucose 125 (H) 65 - 99 mg/dL Comment: Meter ID: [id number] Ctrs: Daljit Gonsales Specimen Performing Laboratory [facility] [id number] [place] [id number] Echocardiogram complete w contrast and 3D if needed (04/05/2017 8:00 AM) Component Value Ref Range AoV Area, Vmax 4.68 cm2 AoV Area, VTI 4.86 cm2 AoV Mean PG 2.40 mmHg AoV Peak PG 4.08 mmHg AoV Vmax 1.01 m/s AoV VTI 0.18 m IVS,d 1.17 0.6 - 1.2 cm LV,d 5.27 cm LV EF,A2C 65.63 % LV EF,A4C 61.55 % LV EF,BP 64.76 % [place],d A2C 9.16 cm [place],d A4C 8.30 cm [place],s A2C 7.41 cm [place],s A4C 7.15 cm LV,s 3.90 cm LV SV,A2C 50.94 % LV SV,A4C 53.14 % LV Vol,d A2C 77.62 mL LV Vol,d A4C 86.34 ml LV Vol,d BP 85.51 ml LV Vol,s A2C 26.68 mL LV Vol,s A4C 33.20 ml LV Vol,s BP 30.14 nl LVOT Diam,S 2.49 cm LVOT Vmax 0.97 m/s LVOT VTI 0.18 m LVPWD,d 1.06 cm TR Vpeak 2.94 mm/s MV E A ratio 1.14 mmHg TR pk grad 34.57 mmHg E wave decelartion time 202.15 msec MV Peak A Dwight 0.69 m/s MV valve area p 1/2 method 4.38 cm2 MV Peak E Dwight 0.79 m/s MV stenosis pressure 1/2 time 50.18 ms AV LVOT peak gradient 3.75 mmHg LV SYS VOL 42.86 ml LV JUNG VOL 96.07 ml LV SV Teich 2D 53.21 ml LVOT SI 41.60 ml/m2 AoV Cusp sep 2.46 AoV Vmn 0.75 IVS s 2D 1.45 LA Ao Ratio Mmode 1.12 LVOT Vmn 0.71 Pt Size 177.80 Pt Wt 90.72 PV AT 93.43 msec LVOT mean grad 2.17 mmHg LVPW s PLAX 1.53 cm MV Decel slope 3.90 m/s2 LA Vol MOD A4C 59.86 ml Velocity Ratio (V1/V2) 0.96 m/s EF 55.39 % E/A ratio 1.14 LVOT area 4.87 cm2 LA volume 32.0 cm3 LA Area d A4C 60 cm2 RVSP (TR) 39.57 mmHg RA pressure 5.00 mmHg RVSP 39.57 mmHg LA diam s 4.10 cm Aortic Root 3.63 AR End Jung Grad 7.61 AR End Diat Dwight 1.38 D E excurs 2.00 E f slope 0.07 E prime lat 0.14 E candido sept 0.10 PV acc T slope 7.90 Specimen Performing Laboratory [facility] [address] [place] [address] Narrative The left ventricle chamber size is normal. Right ventricular size is normal. No pericardial effusion There is mild left ventricular concentric hypertrophy. Left Ventricular ejection fraction is 55 - 60%. Troponin (04/05/2017 3:54 AM)Only the most recent of10 resultswithin the time period is included. Component Value Ref Range Troponin <0.300 0.000 - 0.300 ng/mL Comment: 0.30 - 1.49 ng/mlMay indicate increased risk of acute coronary syndrome. >=1.5 ng/mlConsistent with acute myocardial infarction. The diagnostic value of a single normal or non-diagnostic result is questionable.Serial samples at 2-6 hour intervals are required to rule out acute myocardial injury. Specimen Performing Laboratory Plasma specimen [facility] [address] [place] [address] Lipid panel (04/05/2017 12:10 AM) Component Value Ref Range Cholesterol 200 (H) <200 mg/dL Triglycerides 297 (H) <150 mg/dL HDL cholesterol 29 (L) >40 mg/dL LDL cholesterol 139 (H)Comment: Result obtained by direct <100 mg/dL LDL measurement Lipid panel interpretation SeeBelow Comment: Total Cholesterol (mg/dL) <200 Desirable 299-937Hxkqgcutxe-snni >=240High Triglycerides (mg/dL) <150 Normal 905-830Spxtdpvbnj-nkth 200-499High >=500Very high HDL Cholesterol (mg/dL) <40Low (male) <40Low (female) LDL Cholesterol (mg/dL) <100 Optimal 100-129Near or above optimal 413-446Umlczcnxba-fwmn 160-189High >=190Very high Risk Catergories that modify LDL goals. Risk CatergoriesLDL goal (mg/dL) CHD and CHD risk equivalent<100 (10-year risk >20%) Multiple (2+) risk factors <130 (10-year risk=<20%) 0-1 risk factors <160 (<10-year risk) Defining levels of lipids in metabolic syndrome Triglycerides>=150 mg/dL HDL Cholesterol Men<40 mg/dL Women<40 mg/dL Non-HDL cholesterol is a second target for therapy in persons with high triglycerides (>=200 mg/dL) Specimen Performing Laboratory Plasma specimen [facility] DEPARTMENT OF PATHOLOGY AND GENOMIC MEDICINE [address] [place] [address] Bedside glucose (04/04/2017 10:30 PM)Only the most recent of2 resultswithin the time period is included. Component Value Ref Range POC glucose 117 Specimen Performing Laboratory Blood XR Chest 1 Vw Portable (04/04/2017 3:15 PM)Only the most recent of4 resultswithin the time period is included. Specimen Performing Laboratory [facility] [address] [place] [address] Narrative EXAMINATION: XR CHEST 1 VW PORTABLE INDICATION: Chest Pain COMPARISON: 03/01/2017 IMPRESSION: Heart size is within normal limits. The focal infiltrate, effusion, or pneumothorax. [id number] Procedure Note Interface, Radiology Results Incoming - 04/04/2017 3:52 PM [facility] [employer] EXAMINATION: XR CHEST 1 VW PORTABLE INDICATION: Chest Pain COMPARISON: 03/01/2017 IMPRESSION: Heart size is within normal limits. The focal infiltrate, effusion, or pneumothorax. [id number] Partial thromboplastin time, activated (04/04/2017 2:58 PM)Only the most recent of5 resultswithin the time period is included. Component Value Ref Range PTT 25.3 23.0 - 36.0 sec Comment: PTT therapeutic range for unfractionated heparin is 61.0-112.0 seconds which corresponds to Anti-Xa 0.3-0.7 U/ml. Specimen Performing Laboratory Blood [facility] DEPARTMENT OF PATHOLOGY AND [facility] [id number] [place] [address] [place] [address] Prothrombin time with INR (04/04/2017 2:58 PM)Only the most recent of5 resultswithin the time period is included. Component Value Ref Range Prothrombin time 12.2 12.0 - 15.0 sec INR 0.9 Comment: The International Normalized Ratio (INR) is a therapeutic monitoring tool for patients who are stable on oral anticoagulant therapy. An INR of 2.0-3.0 is suggested for deep vein thrombosis/pulmonary embolism. Specimen Performing Laboratory Blood [facility] PATHOLOGY AND [address] [place] [address] D-dimer (04/04/2017 2:58 PM) Component Value Ref Range D-dimer <0.27 0.00 - 0.40 ug/mL FEU Comment: Units are ug/ml Fibrinogen Equivalent Unit. When combined with low clinical probability, D-dimer results of less than 0.5 ug/ml FEU have a good negativepredictive value in excluding PE or DVT. For D-dimer results greater than 0.5ug/ml FEU further testing is indicated if PE or DVT is suspectedclinically. Elevated D-dimer results have been reported in DVT, PE, and DIC cases and may indicate the presence of a clot. D-dimer results may be elevated due to old age, , inflammatory diseases, trauma, post-operative states, sepsis, and malignancies. Specimen Performing Laboratory Blood [facility] PATHOLOGY AND [address] [place] [address] B natriuretic peptide (04/04/2017 2:58 PM)Only the most recent of5 resultswithin the time period is included. Component Value Ref Range BNP 7 0 - 100 pg/mL Specimen Performing Laboratory Blood [facility] PATHOLOGY [address] [place] [address] Creatine kinase, total (CPK) (04/04/2017 2:58 PM)Only the most recent of4 resultswithin the time period is included. Component Value Ref Range Creatine kinase 41 39 - 308 U/L Specimen Performing Laboratory Plasma specimen [address] [place] [address] Basic metabolic panel (03/02/2017 6:55 AM)Only the most recent of3 resultswithin the time period is included. Component Value Ref Range Sodium 144 135 - 148 mEq/L Potassium 3.4 (L) 3.5 - 5.0 mEq/L Chloride 106 98 - 112 mEq/L CO2 28 24 - 31 mEq/L Anion gap 10 7 - 15 mEq/L Comment: Starting from July , anion gap calculation no longer incorporates potassium. Please note the change. BUN 5 (L) 6 - 20 mg/dL Creatinine 0.7 0.7 - 1.2 mg/dL Glucose 120 (H) 65 - 99 mg/dL Calcium 9.0 8.3 - 10.2 mg/dL Specimen Performing Laboratory Plasma specimen [facility] PATHOLOGY AND [address] [place] [address] Urinalysis screen and microscopy, with reflex to culture (03/01/2017 10:42 PM) Only the most recent of4 resultswithin the time period is included. Component Value Ref Range Specimen site Clean catch Color, UA Yellow Appearance, UA Slightly-Cloudy Specific gravity, UA 1.014 1.001 - 1.035 pH, UA 6.0 5.0 - 8.5 Protein, UA Negative Negative Glucose, UA Negative Negative Ketones, UA Negative Negative Bilirubin, UA Negative Negative Blood, UA Negative Negative Nitrite, UA Negative Negative Urobilinogen, UA 4.0 (A) <2.0 Leukocyte esterase, UA Negative Negative Epithelial cells, UA Few /HPF WBC, UA 0-5 0 - 1 /HPF RBC, UA 0-5 0 - 1 /HPF Bacteria, UA None seen None seen Yeast, UA None seen Yeast with pseudohyphae, UA None seen Specimen Performing Laboratory Urine [facility] DEPARTMENT OF PATHOLOGY AND GENOMIC MEDICINE [id number] [place] [address] [place] [address] Urine culture (03/01/2017 10:42 PM)Only the most recent of2 resultswithin the time period is included. Component Value Ref Range Urine culture SEE COMMENTComment: Bacteriuria screen negative. Specimen Performing Laboratory Urine [facility] DEPARTMENT OF PATHOLOGY AND [facility] [id number] [place] [address] [place] [address] XR Chest 2 Vw (02/26/2017 3:07 PM) Specimen Performing Laboratory [facility] [address] [place] [address] Narrative EXAMINATION:XR CHEST 2 VW CLINICAL HISTORY:Chest Pain COMPARISON:11/21/2016 IMPRESSION: 1.Lungs are clear. 2.Mediastinal contours and cardiac silhouette are unremarkable. 3.No acute osseous abnormality. [facility]-[id number] Procedure Note Interface, Radiology Results Incoming - 02/26/2017 3:12 PM [employer] EXAMINATION: XR CHEST 2 VW CLINICAL HISTORY: Chest Pain COMPARISON: 11/21/2016 IMPRESSION: 1. Lungs are clear. 2. Mediastinal contours and cardiac silhouette are unremarkable. 3. No acute osseous abnormality. [facility]-[id number] CT Abdomen Pelvis W Contrast (02/17/2017 1:00 PM) Specimen Performing Laboratory [facility] [address] [place] [address] Narrative EXAMINATION:CT ABDOMEN PELVIS W CONTRAST CLINICAL HISTORY: 37 yearsMale abdominal pain right side TECHNIQUE: Multiple axial images of the abdomen and pelvis were obtained following intravenous administration of iodinated contrast. Sagittal and coronal computerized reformatted images were also obtained. CT imaging was performed with iterative reconstruction techniques and/or automated exposure control to reduce radiation dose. COMPARISON:None. The liver and spleen appear normal in size. A stable coarse calcification within the liver suggests old granulomatous disease. This is not felt to be of acute significance. The adrenal glands, pancreas, gallbladder and kidneys are within normal limits. No obstructing stones are identified on either side. There is a large amount of stool present in the colon. The appendix appears normal. The prostate and bladder appear within normal limits. There is no free fluid. No inflammatory changes are identified involving bowel. There is no evidence of bowel obstruction. IMPRESSION: No acute findings are identified. A large volume of stool is present in the colon [id number] Procedure Note Interface, Radiology Results Incoming - 02/17/2017 1:36 PM CDT EXAMINATION: CT ABDOMEN PELVIS W CONTRAST CLINICAL HISTORY: 37 yearsMale abdominal pain right side TECHNIQUE: Multiple axial images of the abdomen and pelvis were obtained following intravenous administration of iodinated contrast. Sagittal and coronal computerized reformatted images were also obtained. CT imaging was performed with iterative reconstruction techniques and/or automated exposure control to reduce radiation dose. COMPARISON: None. The liver and spleen appear normal in size. A stable coarse calcification within the liver suggests old granulomatous disease. This is not felt to be of acute significance. The adrenal glands, pancreas, gallbladder and kidneys are within normal limits. No obstructing stones are identified on either side. There is a large amount of stool present in the colon. The appendix appears normal. The prostate and bladder appear within normal limits. There is no free fluid. No inflammatory changes are identified involving bowel. There is no evidence of bowel obstruction. IMPRESSION: No acute findings are identified. A large volume of stool is present in the colon [id number] US Gallbladder (02/17/2017 12:26 PM) Specimen Performing Laboratory [facility] [address] [place] [id number] Narrative EXAMINATION:US GALLBLADDER CLINICAL HISTORY: ruq abd pain COMPARISON:None. FINDINGS: Gallbladder: The gallbladder is without evidence of calculi. The gallbladder wall is not thickened and there is no pericholecystic fluid. CBD:0.7 mm , within normal limits. Portal vein: The portal vein demonstrates normal hepatopedal flow. The portal vein measures 1.2 cm in diameter.. The liver is unremarkable. IMPRESSION: No sonographic evidence of cholecystitis of cholecystitis. Mild prominence of the common bile duct of unclear etiology. Recommend clinical correlation and MRCP to rule out choledocholithiasis if clinical indicated. [id number] Procedure Note Interface, Radiology Results Incoming - 02/17/2017 12:33 PM CDT EXAMINATION: US GALLBLADDER CLINICAL HISTORY: ruq abd pain COMPARISON: None. FINDINGS: Gallbladder: The gallbladder is without evidence of calculi. The gallbladder wall is not thickened and there is no pericholecystic fluid. CBD: 0.7 mm , within normal limits. Portal vein: The portal vein demonstrates normal hepatopedal flow. The portal vein measures 1.2 cm in diameter.. The liver is unremarkable. IMPRESSION: No sonographic evidence of cholecystitis of cholecystitis. Mild prominence of the common bile duct of unclear etiology. Recommend clinical correlation and MRCP to rule out choledocholithiasis if clinical indicated. [id number] Lipase level (02/17/2017 11:45 AM)Only the most recent of2 resultswithin the time period is included. Component Value Ref Range Lipase 20 13 - 60 U/L Specimen Performing Laboratory Plasma specimen [facility] DEPARTMENT OF PATHOLOGY AND GENOMIC MEDICINE [address] [place] [address] XR Ankle 3+ Vw Left (02/05/2017 10:25 PM)Only the most recent of3 resultswithin the time period is included. Specimen Performing Laboratory [facility] [address] [place] [address] Narrative EXAMINATION:XR ANKLE 3VW LEFT CLINICAL HISTORY:BONE PAINANKLE COMPARISON:01/24/2017. IMPRESSION: No definite fracture or dislocation of the left ankle. Soft tissue swelling about the ankle. [facility]-[id number] Procedure Note Interface, Radiology Results Incoming - 02/05/2017 10:33 PM CDT EXAMINATION: XR ANKLE 3 VW LEFT CLINICAL HISTORY: BONE PAIN ANKLE COMPARISON: 01/24/2017. IMPRESSION: No definite fracture or dislocation of the left ankle. Soft tissue swelling about the ankle. [facility]-[id number] XR Foot 3+ Vw Left (01/24/2017 12:30 AM)Only the most recent of2 resultswithin the time period is included. Specimen Performing Laboratory [facility] [address] [place] [address] Narrative Examination:XR FOOT 3VW LEFT Clinical History: BONE PAINFOOT Comparison: None. Findings: 3 views of the left foot are obtained. No acute fracture or dislocation is seen. The joint spaces are within normal limits. Soft tissues are unremarkable. Posterior calcaneal spurring is noted. IMPRESSION: 1. No acute abnormality identified in the left foot. [facility]-[id number] Procedure Note Interface, Radiology Results Incoming - 01/24/2017 12:35 AM CDT Examination: XR FOOT 3 VW LEFT Clinical History: BONE PAIN FOOT Comparison: None. Findings: 3 views of the left foot are obtained. No acute fracture or dislocation is seen. The joint spaces are within normal limits. Soft tissues are unremarkable. Posterior calcaneal spurring is noted. IMPRESSION: 1. No acute abnormality identified in the left foot. [facility]-[id number] CT Renal Stone Protocol (01/01/2017 7:51 AM) Specimen Performing Laboratory [facility] [address] [place] [address] Narrative EXAMINATION:CT RENAL STONE PROTOCOL CLINICAL HISTORY:R flank painnausea TECHNIQUE:Multiple axial CT images of the abdomen and pelvis are obtained without the use of intravenous contrast. Coronal and sagittal 3-D reconstructions are obtained. CT scans are performed using radiation dose reduction techniques.Technical factors are evaluated and adjusted to ensure appropriate moderation of exposure.Automated dose management technology is applied to adjust radiation exposure while achieving a diagnostic quality image. COMPARISON:October 2015 FINDINGS: Abdomen: The evaluation of the solid organs is limited without the use of intravenous contrast. The visualized lower lung zones are clear. The gallbladder does not have any wall thickening. There is no pericholecystic fluid.. The CT appearance of the liver, spleen, pancreas and adrenal glands is unremarkable . The abdominal aorta has no aneurysmal dilatation. There is no retroperitoneal adenopathy. The kidneys do not have any stones or hydronephrosis. CT Pelvis: The right kidney does not have any stones or any hydronephrosis. The right ureter does not have any filling defects. The left kidney does not have any cyst stones or any hydronephrosis. There is no left ureteral stone. The bladder does not demonstrate any stones. There is no evidence of any pneumoperitoneum. Stomach does not demonstrate any wall thickening. There is no bowel obstruction nor any dilated loops of bowel. There is no evidence of any inguinal hernia. The colon does not demonstrate any wall thickening. There is no small bowel dilatation. The appendix is visualized and does not have any inflammatory change. IMPRESSION: 1. There are no renal, ureteral or bladder stones. 2. There is no bowel obstruction nor any dilated loops of bowel. 3. The abdomen and pelvis do not demonstrate any masses. 4. The appendix has no inflammatory change. [id number] Procedure Note [facility], Radiology Results Incoming - 01/01/2017 8:01 AM CDT EXAMINATION: CT RENAL STONE PROTOCOL CLINICAL HISTORY: R flank pain nausea TECHNIQUE: Multiple axial CT images of the abdomen and pelvis are obtained without the use of intravenous contrast. Coronal and sagittal 3-D reconstructions are obtained. CT scans are performed using radiation dose reduction techniques. Technical factors are evaluated and adjusted to ensure appropriate moderation of exposure. Automated dose management technology is applied to adjust radiation exposure while achieving a diagnostic quality image. COMPARISON: October 2015 FINDINGS: Abdomen: The evaluation of the solid organs is limited without the use of intravenous contrast. The visualized lower lung zones are clear. The gallbladder does not have any wall thickening. There is no pericholecystic fluid.. The CT appearance of the liver, spleen, pancreas and adrenal glands is unremarkable . The abdominal aorta has no aneurysmal dilatation. There is no retroperitoneal adenopathy. The kidneys do not have any stones or hydronephrosis. CT Pelvis: The right kidney does not have any stones or any hydronephrosis. The right ureter does not have any filling defects. The left kidney does not have any cyst stones or any hydronephrosis. There is no left ureteral stone. The bladder does not demonstrate any stones. There is no evidence of any pneumoperitoneum. Stomach does not demonstrate any wall thickening. There is no bowel obstruction nor any dilated loops of bowel. There is no evidence of any inguinal hernia. The colon does not demonstrate any wall thickening. There is no small bowel dilatation. The appendix is visualized and does not have any inflammatory change. IMPRESSION: 1. There are no renal, ureteral or bladder stones. 2. There is no bowel obstruction nor any dilated loops of bowel. 3. The abdomen and pelvis do not demonstrate any masses. 4. The appendix has no inflammatory change. [id number] Hepatic function panel (01/01/2017 7:36 AM) Component Value Ref Range Albumin 4.0 3.5 - 5.0 g/dL Total bilirubin 0.2 0.0 - 1.2 mg/dL Bilirubin direct <0.1 0.0 - 0.3 mg/dL Alkaline phosphatase 121 40 - 129 U/L Protein 7.1 6.3 - 8.3 g/dL Comment: [place] 4.6-7.0 g/dL 1 week 4.4-7.6 g/dL 7 months-1year5.1-7.3 g/dL 1-2 years5.6-7.5 g/dL >3 years6.0-8.0 g/dL 18-150 6.3-8.3 g/dL ALT 7 5 - 50 U/L AST 11 10 - 50 U/L Specimen Performing Laboratory Plasma specimen [facility] DEPARTMENT OF PATHOLOGY AND GENOMIC MEDICINE [address] [place] [address] XR Pelvis 1 Or 2 Vw (12/17/2016 12:47 AM) Specimen Performing Laboratory [facility] [address] [place] [address] Narrative XR PELVIS 1 OR 2 VW CLINICAL INDICATION:JOINT PAINHIP COMPARISON:None. IMPRESSION: There is no acute fracture or dislocation. Joint spaces are maintained and there is no evidence of significant arthritis. Osseous mineralization is normal. [facility]-[id number] Procedure Note Interface, Radiology Results Incoming - 12/17/2016 12:53 AM CDT XR PELVIS 1 OR 2 VW CLINICAL INDICATION: JOINT PAIN HIP COMPARISON: None. IMPRESSION: There is no acute fracture or dislocation. Joint spaces are maintained and there is no evidence of significant arthritis. Osseous mineralization is normal. [facility]-[id number] XR Femur 2 Vw Left (12/17/2016 12:46 AM) Specimen Performing Laboratory [facility] [address] [place] [address] Narrative XR FEMUR 2 VW LEFT CLINICAL INDICATION:thigh pain after fall COMPARISON:None. IMPRESSION: There is no acute fracture or dislocation. Joint spaces are maintained and there is no evidence of significant arthritis. Osseous mineralization is normal. [facility]-[id number] Procedure Note Interface, Radiology Results Incoming - 12/17/2016 12:52 AM CDT XR FEMUR 2 VW LEFT CLINICAL INDICATION: thigh pain after fall COMPARISON: None. IMPRESSION: There is no acute fracture or dislocation. Joint spaces are maintained and there is no evidence of significant arthritis. Osseous mineralization is normal. [facility]-[id number] XR Knee 4+ Vw Left (12/17/2016 12:46 AM) Specimen Performing Laboratory [facility] [address] [place] [address] Narrative XR KNEE 4VW LEFT CLINICAL INDICATION:BONE PAINKNEE COMPARISON:None. IMPRESSION: There is no acute fracture or dislocation. There is no knee joint effusion. Joint spaces are maintained and there is no evidence of significant arthritis. Osseous mineralization is normal. [facility]-[id number] Procedure Note Interface, Radiology Results Incoming - 12/17/2016 12:51 AM CDT XR KNEE 4 VW LEFT CLINICAL INDICATION: BONE PAIN KNEE COMPARISON: None. IMPRESSION: There is no acute fracture or dislocation. There is no knee joint effusion. Joint spaces are maintained and there is no evidence of significant arthritis. Osseous mineralization is normal. [facility]-[id number] XR Shoulder 2+ Vw Left (12/08/2016 9:33 AM) Specimen Performing Laboratory [facility] [address] [place] [address] Narrative EXAMINATION:XR SHOULDER 2VW LEFT CLINICAL HISTORY:paininjury COMPARISON:None available at this time. IMPRESSION: 1. No fracture, malalignment, or osseous destructive lesion of the left shoulder. 2. Joint spaces are maintained. No significant degenerative changes. 3. Soft tissues are unremarkable. [facility]-[id number] Procedure Note Interface, Radiology Results Incoming - 12/08/2016 9:38 AM CDT EXAMINATION: XR SHOULDER 2 VW LEFT CLINICAL HISTORY: pain injury COMPARISON: None available at this time. IMPRESSION: 1. No fracture, malalignment, or osseous destructive lesion of the left shoulder. 2. Joint spaces are maintained. No significant degenerative changes. 3. Soft tissues are unremarkable. [facility]-[id number] Urine drugs of abuse screen (11/21/2016 11:00 AM)Only the most recent of2 resultswithin the time period is included. Component Value Ref Range Amphetamine screen, urine Negative Methamphetamine screen, urine Negative Barbiturate screen, urine Negative Benzodiazepine screen, urine Negative Cocaine screen, urine Negative Methadone screen, urine Negative Opiates screen, urine Negative Phencyclidine screen, urine Negative Cannabinoid screen, urine Negative Tricyclic screen, urine Negative Comment: Drug screen minimum concentration of detectability Povkrdoywnyt2176 ng/mL Wpzxsgxzmhzqylhn7359 ng/mL Barbiturates 300 ng/mL Tolqrukqnwjgwfo045 ng/mL Csizdtx695 ng/mL Laausqkzx454 ng/mL Qsnngyk639 ng/mL Phencyclidine 25 ng/mL Fwmlbyrjfxwm87 ng/mL Igmexyzocp7945 ng/mL Negative test results indicates presumptive evidence of lack of clinically significant drug concentration in this urine specimen. Positive test results are presumptive evidence of clinically significant drug concentration in this urine specimen. Testing performed for medical purposes only. Specimen Performing Laboratory Urine - Urine, clean catch [facility] DEPARTMENT OF PATHOLOGY AND GENOMIC MEDICINE [address] [place] [address] Magnesium level (11/07/2016 6:20 PM) Component Value Ref Range Magnesium 1.9 1.6 - 2.6 mg/dL Specimen Performing Laboratory Plasma specimen [facility] DEPARTMENT OF PATHOLOGY AND GENOMIC MEDICINE [address] [place] [address] XR Knee 4+ Vw Right (11/04/2016 1:11 AM) Specimen Performing Laboratory [facility] [address] [place] [address] Narrative XR KNEE 4VW RIGHT CLINICAL INDICATION:BONE PAINKNEE COMPARISON:None. IMPRESSION: There is no acute fracture or dislocation. There is no knee joint effusion. Joint spaces are maintained and there is no evidence of significant arthritis. Osseous mineralization is normal. [facility]-[id number] Procedure Note Interface, Radiology Results Incoming - 11/04/2016 2:51 AM CDT XR KNEE 4 VW RIGHT CLINICAL INDICATION: BONE PAIN KNEE COMPARISON: None. IMPRESSION: There is no acute fracture or dislocation. There is no knee joint effusion. Joint spaces are maintained and there is no evidence of significant arthritis. Osseous mineralization is normal. [facility]-[id number] after 08/09/2016
[2017-08-10 23:57] LABS: Urine Blood NEGATIVE (NEG); Urine Glucose 1+ (NEG); Urine Protein 1+ (NEG); Urine Specific Gravity 1.025 (1.005-1.030)
[2017-08-11 00:21] LABS: Absolute Lymphocytes (CBC) 2.7 K/uL (0.7-4.9); Absolute Monocytes 0.7 K/uL (0.1-1.3); Absolute Neutrophil 8.5 K/uL (1.8-8.0); Basophils % 1.4 % (0-1.3); Eosinophils % 2.4 % (0-4.4); Lymphocytes % 21.9 % (15.3-44.8); MCH 27.4 pg (27.0-35.0); MCV 81.7 fL (80-100); Monocytes % 5.5 % (3.3-12.3); RBC Red Blood Cell Count 4.89 M/uL (4.33-5.43)
[2017-08-11 00:31] LABS: Barbiturates NEGATIVE; Benzodiazepines POSITIVE; Cocaine NEGATIVE; METHAMPHETAM NEGATIVE; Opiates NEGATIVE; Phencyclidine NEGATIVE; THC Cannibis NEGATIVE
[2017-08-11] MEDS ORDERED: ACETAMINOPHEN 500 MG TAB ONE (00:35)
--- NOTE | 2017-08-11 00:47 | ER ---
Nurse's Notes [facility] Name: Adria Guallpa Jr Age: 37 yrs Sex: Male : 1980 Arrival Date: 08/10/2017 Time: 22:55 Bed 24 Private MD: Diagnosis: Chest pain, unspecified Presentation: 08/10 23:26 Presenting complaint: Patient states: chest pain to the left, that occasionally tl3 radiates to the left arm. Pain started today at 3pm, moving about makes it worse, pain is reproduced with palpation to chest. Transition of care: patient was not received from another setting of care. Onset of symptoms was August 10, 2017 at 15:00. Initial Sepsis Screen: Does the patient meet any 2 criteria? No. Patient's initial sepsis screen is negative. Does the patient have a suspected source of infection? No. Patient's initial sepsis screen is negative. Care prior to arrival: None. 23:26 Method Of Arrival: Ambulatory tl3 23:26 Acuity: DAVE 2 tl3 Triage Assessment: 23:29 General: Appears distressed, uncomfortable, well groomed, well developed, well tl3 nourished, Behavior is calm, cooperative, appropriate for age. Pain: Complains of pain in chest and left arm. EENT: No signs and/or symptoms were reported regarding the EENT system. Neuro: Level of Consciousness is awake, alert, obeys commands, Oriented to person, place, time, situation, Appropriate for age. Cardiovascular: Heart tones S1 S2 present Capillary refill < 3 seconds in bilateral fingers. Respiratory: Airway is patent Trachea midline Respiratory effort is even, unlabored, Respiratory pattern is regular, symmetrical, Breath sounds are clear bilaterally. GI: No signs and/or symptoms were reported involving the gastrointestinal system. : No signs and/or symptoms were reported regarding the genitourinary system. Derm: No signs and/or symptoms reported regarding the dermatologic system. Musculoskeletal: No signs and/or symptoms reported regarding the musculoskeletal system. Historical: - Allergies: 23:29 Flexeril; tl3 23:29 Ibuprofen; tl3 23:29 Toradol; tl3 - Home Meds: 23:29 aspirin 81 mg oral chew [Active]; gabapentin 300 mg Oral cap 1 cap twice a day tl3 [Active]; metformin 500 mg Oral tab 1 tab 2 times per day [Active]; - PMHx: 23:29 Chronic pain; Diabetes - NIDDM; Myocardial infarction; tl3 - PSHx: 23:29 Eye Surgery; tl3 - Immunization history:: Adult Immunizations up to date. - Social history:: Smoking status: Patient uses tobacco products, smokes one-half pack cigarettes per day. Screenin:44 Abuse screen: Denies threats or abuse. Nutritional screening: No deficits noted. tl3 Tuberculosis screening: No symptoms or risk factors identified. Fall Risk None identified. Assessment: 23:45 General: Appears uncomfortable, well groomed, well developed, well nourished, Behavior tl3 is calm, cooperative, appropriate for age. Pain: Complains of pain in left arm and chest Pain radiates to left arm Pain currently is 8 out of 10 on a pain scale. 08/11 00:30 General: Appears uncomfortable, well groomed, well developed, well nourished. tl3 00:30 Reassessment: Patient appears in no apparent distress at this time. No changes from tl3 previously documented assessment. Patient and/or family updated on plan of care and expected duration. Pain level reassessed. Patient is alert, oriented x 3, equal unlabored respirations, skin warm/dry/pink. pt wants to leave, started to take out his own IV, I asked him to let me do it, which he did and then left, he was unwilling to sign anything prior to leaving. Vital Signs: 08/10 23:29 Pulse 91; Resp 18; Pulse Ox 97% on R/A; tl3 23:29 BP 146 / 82; tl3 08/11 00:53 BP 138 / 76; Pulse 86; Resp 18; Pulse Ox 100% on R/A; tl3 ED Course: 08/10 22:55 Patient arrived in ED. am2 23:01 Bebeto Nair MD is Attending Physician. gs 23:25 Misa Morgan, APPLE is Primary Nurse. tl3 23:28 Triage completed. tl3 23:44 Appears restless. tl3 23:44 No provider procedures requiring assistance completed. EKG done, X-ray(s) taken. tl3 Inserted saline lock: 20 gauge in right forearm, using aseptic technique. Blood collected. Patient maintains SpO2 saturation greater than 95% on room air. 23:44 Patient has correct armband on for positive identification. bus monitor on. Pulse tl3 ox on. NIBP on. Door closed. Warm blanket given. 23:55 X-ray completed. Portable x-ray completed in exam room. Patient tolerated procedure kw well. 23:56 XRAY Chest (1 view) In Process Unspecified. EDMS 08/11 00:05 Lab(s) recollected, by me, sent to lab. danny 00:29 Arm band placed on right wrist. tl3 Administered Medications: No medications were administered Outcome: 08/10 23:44 Eloped from patient exam room, after seeing physician tl3 08/11 00:53 Patient left the ED. tl3 Signatures: Dispatcher [employer] EDDE Cierra Victoria RN RN Brenda Brunson Amanda am2 Starr, Gregory, MD MD gs Lowrey, Tammy, RN RN tl3
--- NOTE | 2017-08-11 00:47 | EDPHYS ---
Physician Documentation [facility] Name: Adria Guallpa Jr Age: 37 yrs Sex: Male : 1980 Arrival Date: 08/10/2017 Time: 22:55 Bed 24 Private MD: ED Physician Bebeto Nair HPI: 08/11 00:43 This 37 yrs old Male presents to ER via Ambulatory with complaints of Chest gs Pain. 00:43 The patient or guardian reports chest pain that is located primarily in the anterior gs chest wall. Associated signs and symptoms: Pertinent negatives: diaphoresis, shortness of breath. The chest pain is described as dull. Duration: The patient or guardian reports multiple episodes, that are intermittent, that wax and wane, with no pattern. Modifying factors: The symptoms are alleviated by nothing. the symptoms are aggravated by nothing. Severity of pain: At its worst the pain was moderate in the emergency department the pain has improved moderately. The patient has experienced similar episodes in the past, a few times. Historical: - Allergies: 08/10 23:29 Flexeril; tl3 23:29 Ibuprofen; tl3 23:29 Toradol; tl3 - Home Meds: 23:29 aspirin 81 mg oral chew [Active]; gabapentin 300 mg Oral cap 1 cap twice a day tl3 [Active]; metformin 500 mg Oral tab 1 tab 2 times per day [Active]; - PMHx: 23:29 Chronic pain; Diabetes - NIDDM; Myocardial infarction; tl3 - PSHx: 23:29 Eye Surgery; tl3 - Immunization history:: Adult Immunizations up to date. - Social history:: Smoking status: Patient uses tobacco products, smokes one-half pack cigarettes per day. ROS: 08/11 00:43 All other systems are negative. gs Exam: 08/10 23:21 ECG was reviewed by the Attending Physician. gs 08/11 00:43 Head/Face: Normocephalic, atraumatic. Eyes: Pupils equal round and reactive to light, gs extra-ocular motions intact. Lids and lashes normal. Conjunctiva and sclera are non-icteric and not injected. Cornea within normal limits. Periorbital areas with no swelling, redness, or edema. ENT: Nares patent. No nasal discharge, no septal abnormalities noted. Tympanic membranes are normal and external auditory canals are clear. Oropharynx with no redness, swelling, or masses, exudates, or evidence of obstruction, uvula midline. Mucous membranes moist. Neck: Trachea midline, no thyromegaly or masses palpated, and no cervical lymphadenopathy. Supple, full range of motion without nuchal rigidity, or vertebral point tenderness. No Meningismus. Chest/axilla: Normal chest wall appearance and motion. Nontender with no deformity. No lesions are appreciated. Cardiovascular: Regular rate and rhythm with a normal S1 and S2. No gallops, murmurs, or rubs. Normal PMI, no JVD. No pulse deficits. Respiratory: Lungs have equal breath sounds bilaterally, clear to auscultation and percussion. No rales, rhonchi or wheezes noted. No increased work of breathing, no retractions or nasal flaring. Abdomen/GI: Soft, non-tender, with normal bowel sounds. No distension or tympany. No guarding or rebound. No evidence of tenderness throughout. Back: No spinal tenderness. No costovertebral tenderness. Full range of motion. Skin: Warm, dry with normal turgor. Normal color with no rashes, no lesions, and no evidence of cellulitis. MS/ Extremity: Pulses equal, no cyanosis. Neurovascular intact. Full, normal range of motion. Neuro: Awake and alert, GCS 15, oriented to person, place, time, and situation. Cranial nerves II-XII grossly intact. Motor strength 5/5 in all extremities. Sensory grossly intact. Cerebellar exam normal. Normal gait. Constitutional: The patient appears in no acute distress, alert, awake. Vital Signs: 08/10 23:29 Pulse 91; Resp 18; Pulse Ox 97% on R/A; tl3 23:29 BP 146 / 82; tl3 08/11 00:53 BP 138 / 76; Pulse 86; Resp 18; Pulse Ox 100% on R/A; tl3 MDM: 08/10 23:05 Patient medically screened. 08/11 00:43 Differential diagnosis: acute myocardial infarction, chest wall pain, acute gs exacerbation of chronic pain. Data reviewed: vital signs, nurses notes. Response to treatment: the patient's symptoms have markedly improved after treatment. 08/10 23:19 Order name: Basic Metabolic Panel 08/10 23:19 Order name: CBC with Diff; Complete Time: 00:46 08/10 23:19 Order name: Troponin (emerg Dept Use Only) 08/10 23:19 Order name: XRAY Chest (1 view) 08/10 23:19 Order name: Urine Drug Screen; Complete Time: 00:46 08/10 23:28 Order name: Urine Dipstick--Ancillary (enter results); Complete Time: 00:11 rg2 08/10 23:19 Order name: EKG; Complete Time: 23:20 08/10 23:19 Order name: Cardiac monitoring; Complete Time: 23:50 08/10 23:19 Order name: EKG - Nurse/Tech; Complete Time: 23:50 08/10 23:19 Order name: IV Saline Lock; Complete Time: 23:50 08/10 23:19 Order name: Labs collected and sent; Complete Time: 23:50 08/10 23:19 Order name: O2 Per Protocol; Complete Time: 23:50 08/10 23:19 Order name: O2 Sat Monitoring; Complete Time: 23:50 08/10 23:19 Order name: Urine Dipstick-Ancillary (obtain specimen); Complete Time: 23:50 EC/19 23:21 Rate is 88 beats/min. Rhythm is regular. MA interval is normal. QRS interval is normal. gs T waves are Flattened. No ST changes noted. Clinical impression: Abnormal EKG without significant change. Interpreted by me. Administered Medications: No medications were administered Disposition: 08/11/17 00:46 Patient left the facility after being seen by provider. Preliminary diagnosis is Chest pain, unspecified. - Patient left due to unknown. - Condition is Stable. Signatures: Dispatcher [employer] Bebeto Quintero MD MD Misa Morgan, RN RN tl3
[2017-08-11 01:03] LABS: Bicarbonate 26 mEq/L (21-31); Glucose Level 154 mg/dL (65-120); Potassium 3.3 mEq/L (3.6-5.0); Sodium Level 138 mEq/L (135-145)
[2017-08-11 01:04] LABS: BUN Blood Urea Nitrogen 5 mg/dL (6-20)
--- NOTE | 2017-08-11 07:01 | EKG ---
Test Date: 2017-08-10 Test Time: 23:08:34 [employer] Systems Engineer: RENETTA MEASUREMENT RESULTS: Intervals: Rate: 88 TN: 140 QRSD: 86 QT: 360 QTc: 435 [place]: P: 20 TN: 140 QRS: 33 T: 33 INTERPRETIVE STATEMENTS: Normal sinus rhythm Normal ECG Compared to ECG 04/07/2017 00:05:23 No significant changes Electronically Signed On 08-11-17 07:00:59 CDT by Ariel Vu
--- NOTE | 2017-08-11 08:17 | RAD REPORT ---
EXAM DESCRIPTION: RAD - Chest Single View - 08/10/2017 11:57 pm CLINICAL HISTORY: Chest pain, shortness of breath. COMPARISON: 04/06/2017 FINDINGS: Portable technique limits examination quality. The lungs are grossly clear. The heart is normal in size. No displaced fractures. IMPRESSION: No acute intrathoracic process suspected.
== END 2017-08-11 00:53 | disposition left against medical advice (07) ==
LOC: ER 22:54
DX: R07.9 Chest pain, unspecified (principal); E11.9 Type 2 diabetes mellitus without complications; Z88.6 Allergy status to analgesic agent
CPT/HCPCS: 36415; 71045; 80048; 80307; 81003; 84484; 85025; 93005; 99285

== ENCOUNTER 2017-08-13 11:15 | Observation (INO) | payer SELFPAY ==
--- OUTSIDE RECORDS SUMMARY | 2017-08-13 11:18 | XMS REPORT | Clinical Summary ---
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, unspecified Collins, Ramón headache type (Primary MD Giacomo Dx) 11/04/2016 Emergency Emergency Medicine Andrew Gallegos 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, 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, [employer]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 after 08/12/[address] Lumbar Spine Wo Contrast (08/08/2017 10:45 AM) Specimen Performing [facility] [address] [place] [address] Narrative EXAMINATION:CT LUMBAR SPINE WO CONTRAST CLINICAL [...] compression No acute bony abnormality lumbar spine [id number] Procedure Note Interface, Radiology Results Incoming - [...] compression No acute bony abnormality lumbar spine [id number] CT Thoracic Spine Wo Contrast (08/08/2017 10:45 AM) Specimen Performing Laboratory [facility] [place] [address] Narrative EXAMINATION:CT THORACIC SPINE WO CONTRAST CLINICAL HISTORY:fall from horseupper back pain COMPARISON:None. TECHNIQUE: CT imaging was performed with iterative reconstruction technique and /or automated exposure control to reduce radiation dose. IMPRESSION: Thoracic spine alignment is within normal limits. Mild multilevel endplate degenerative changes. No moderate or severe canal/foraminal narrowing. No fractures or aggressive bony lesions. [facility]-[id number] Procedure Note Hm Interface, Radiology Results Incoming [...] narrowing. No fractures or aggressive bony lesions. [facility]-[id number] CT Cervical Spine Wo Contrast (08/08/2017 10:30 AM) Specimen Performing Laboratory [facility] [employer] [place] [address] Narrative EXAMINATION: CT CERVICAL SPINE WO CONTRAST [...] dedicated nonemergent CT chest for further assessment. [facility]-[id number] Procedure Note [facility], Radiology Results - 08/08/2017 11:05 AM CDT [...] dedicated nonemergent CT chest for further assessment. [facility]-[id number] CT Head Wo Contrast (08/08/2017 10:30 AM)Only the most recent of2 resultswithin the time period is included. Specimen Performing Laboratory [facility] [address] [place] [address] Narrative EXAMINATION:CT HEAD WO CONTRAST CLINICAL HISTORY:fall [...] Possible mild odontogenic sinusitis right maxillary sinus. [facility]-[id number] Procedure Note Interface, Radiology Results Incoming - [...] Possible mild odontogenic sinusitis right maxillary sinus. [facility]-[id number] Estimated GFR (08/08/2017 10:11 AM)Only the most [...] and Americans. Specimen Performing Laboratory Plasma specimen [facility] DEPARTMENT OF PATHOLOGY AND [facility] MEDICINE [address] [place] [address] [place] [address] CBC with platelet and differential (08/08/2017 10:11 [...] - 1.0 % Specimen Performing Laboratory Blood [facility] DEPARTMENT OF PATHOLOGY AND [facility] MEDICINE [id number] [place] [address] [place] [address] Comprehensive metabolic panel (08/08/2017 10:11 AM)Only the [...] 5.8 (L) 6.3 - 8.3 g/dL Comment: [place] 4.6-7.0 g/dL 1 week 4.4-7.6 g/dL 7 months-1year5.1-7.3 g/dL 1-2 years5.6-7.5 g/dL >3 years6.0-8.0 g/dL 18-150 6.3-8.3 g/dL Albumin 3.2 (L) 3.5 - 5.0 g/dL A/G ratio 1.2 0.7 - 3.8 Alkaline phosphatase 94 40 - 129 U/L AST 8 (L) 10 - 50 U/L ALT 9 5 - 50 U/L Total bilirubin 0.3 0.0 - 1.2 mg/dL Specimen Performing Laboratory Plasma specimen [facility] DEPARTMENT OF PATHOLOGY AND GENOMIC MEDICINE [address] [place] [address] ECG 12 lead (08/08/2017 10:10 AM)Only the most recent of9 resultswithin the time period is included. Component Value Ref Range Ventricular rate 76 Atrial rate 76 MT interval 134 QRSD interval 84 QT interval 376 QTC interval 423 P axis 1 19 QRS axis 1 40 T wave axis 32 EKG impression Normal sinus rhythm-Normal ECG-In automated comparison with ECG of 15-JUL-2017 08:35,-No significant change was found- Specimen Performing Laboratory [facility] M[address] [place] [address] ECG ED Preliminary Interpretation - NOT AN ORDER (07/15/2017 8:37 AM)Only the most recent of6 resultswithin the time period is included. Alyson Fairchild DO 07/15/2017 10:25 AM ECG ED Preliminary Interpretation - Not an Order Performed by: ISRA FAIRCHILD Authorized by: ISRA FAIRCHILD ECG reviewed by ED Physician in the absence of a international logistics analyst: yes Interpretation: Interpretation: normal Rate: ECG rate:73 ECG rate assessment: normal Rhythm: Rhythm: sinus rhythm Ectopy: Ectopy: none QRS: QRS axis:Normal Conduction: Conduction: normal ST segments: ST segments:Normal T waves: T waves: normal POC glucose (04/05/2017 8:24 AM)Only the most recent of4 resultswithin the time period is included. Component Value Ref Range POC glucose 125 (H) 65 - 99 mg/dL Comment: Meter ID: [id number] Provider Education Specialist: Daljit Gonsales Specimen Performing Laboratory [facility] DEPARTMENT OF PATHOLOGY AND GENOMIC MEDICINE [id number] [place] [address] Echocardiogram complete w contrast and 3D if [...] 61.55 % LV EF,BP 64.76 % Tal Tilton,d A2C 9.16 cm Tal [place],d A4C 8.30 cm Tal [place],s A2C 7.41 cm Tal [place],s A4C 7.15 cm LV,s 3.90 cm LV [...] diam s 4.10 cm Aortic Root 3.63 MT End Jung Grad 7.61 MT End Diat Dwight 1.38 D E excurs 2.00 E f slope 0.07 E prime lat 0.14 E candido sept 0.10 PV acc T slope 7.90 Specimen Performing Laboratory [facility] [address] [place] [address] Narrative The left ventricle chamber size is [...] myocardial injury. Specimen Performing Laboratory Plasma specimen [facility] DEPARTMENT OF PATHOLOGY AND GENOMIC MEDICINE [address] [place] [address] Lipid panel (04/05/2017 12:10 AM) Component Value Ref Range Cholesterol 200 (H) <200 mg/dL Triglycerides 297 (H) <150 mg/dL HDL cholesterol 29 (L) >40 mg/dL LDL cholesterol 139 (H)Comment: Result obtained by direct <100 mg/dL LDL measurement Lipid panel interpretation SeeBelow Comment: Total Cholesterol (mg/dL) <200 Desirable 715-276Pivdvwfpbo-xedd >=240High Triglycerides (mg/dL) <150 Normal 506-420Qrezjodapo-qfgt 200-499High >=500Very high HDL Cholesterol (mg/dL) <40Low (male) <40Low (female) LDL Cholesterol (mg/dL) <100 Optimal 100-129Near or above optimal 227-646Cayvcrvhiy-vmha 160-189High >=190Very high Risk Catergories that modify [...] (>=200 mg/dL) Specimen Performing Laboratory Plasma specimen [facility] DEPARTMENT OF PATHOLOGY AND GENOMIC MEDICINE [address] [place] [address] Bedside glucose (04/04/2017 10:30 PM)Only the most recent of2 resultswithin the time period is included. Component Value Ref Range POC glucose 117 Specimen Performing Laboratory Blood XR Chest 1 Vw Portable (04/04/2017 3:15 PM)Only the most recent of4 resultswithin the time period is included. Specimen Performing Laboratory [facility] [address] [place] [address] Narrative EXAMINATION: XR CHEST 1 VW PORTABLE INDICATION: Chest Pain COMPARISON: 03/01/2017 IMPRESSION: Heart size is within normal limits. The focal infiltrate, effusion, or pneumothorax. [id number] Procedure Note Interface, Radiology Results Incoming - 04/04/2017 3:52 PM DRAWING TENDER EXAMINATION: XR CHEST 1 VW PORTABLE INDICATION: Chest Pain COMPARISON: 03/01/2017 IMPRESSION: Heart size is within normal limits. The focal infiltrate, effusion, or pneumothorax. [id number] Partial thromboplastin time, activated (04/04/2017 2:58 PM)Only the most recent of5 resultswithin the time period is included. Component Value Ref Range PTT 25.3 23.0 - 36.0 sec Comment: PTT therapeutic range for unfractionated heparin is 61.0-112.0 seconds which corresponds to Anti-Xa 0.3-0.7 U/ml. Specimen Performing Laboratory Blood [facility] DEPARTMENT OF PATHOLOGY AND [facility] [id number] [place] [address] [place] [address] Prothrombin time with INR (04/04/2017 2:58 PM)Only [...] vein thrombosis/pulmonary embolism. Specimen Performing Laboratory Blood [facility] OF PATHOLOGY AND [address] [place] [address] D-dimer (04/04/2017 2:58 PM) Component Value Ref [...] and malignancies. Specimen Performing Laboratory Blood [facility] PATHOLOGY AND [address] [place] [address] B natriuretic peptide (04/04/2017 2:58 PM)Only the most recent of5 resultswithin the time period is included. Component Value Ref Range BNP 7 0 - 100 pg/mL Specimen Performing Laboratory Blood [facility] PATHOLOGY [address] [place] [address] Creatine kinase, total (CPK) (04/04/2017 2:58 PM)Only the most recent of4 resultswithin the time period is included. Component Value Ref Range Creatine kinase 41 39 - 308 U/L Specimen Performing Laboratory Plasma specimen [address] [place] [address] Basic metabolic panel (03/02/2017 6:55 AM)Only the [...] mg/dL Specimen Performing Laboratory Plasma specimen [facility] PATHOLOGY AND [address] [place] [address] Urinalysis screen and microscopy, with reflex to [...] UA None seen Specimen Performing Laboratory Urine [facility] DEPARTMENT OF PATHOLOGY AND GENOMIC MEDICINE [id number] [place] [address] [place] [address] Urine culture (03/01/2017 10:42 PM)Only the most recent of2 resultswithin the time period is included. Component Value Ref Range Urine culture SEE COMMENTComment: Bacteriuria screen negative. Specimen Performing Laboratory Urine [facility] DEPARTMENT OF PATHOLOGY AND [facility] MEDICINE [id number] [place] [address] [place] [address] XR Chest 2 Vw (02/26/2017 3:07 PM) Specimen Performing Laboratory [facility] [address] [place] [address] Narrative EXAMINATION:XR CHEST 2 VW CLINICAL HISTORY:Chest Pain COMPARISON:11/21/2016 IMPRESSION: 1.Lungs are clear. 2.Mediastinal contours and cardiac silhouette are unremarkable. 3.No acute osseous abnormality. [facility]-[id number] Procedure Note Interface, Radiology Results Incoming - 02/26/2017 3:12 PM DRAWING TENDER EXAMINATION: XR CHEST 2 VW CLINICAL HISTORY: Chest Pain COMPARISON: 11/21/2016 IMPRESSION: 1. Lungs are clear. 2. Mediastinal contours and cardiac silhouette are unremarkable. 3. No acute osseous abnormality. [facility]-[id number] CT Abdomen Pelvis W Contrast (02/17/2017 1:00 PM) Specimen Performing Laboratory [facility] [address] [place] [address] Narrative EXAMINATION:CT ABDOMEN PELVIS W CONTRAST CLINICAL [...] of stool is present in the colon [id number] Procedure Note Interface, Radiology Results Incoming - [...] of stool is present in the colon [id number] US Gallbladder (02/17/2017 12:26 PM) Specimen Performing Laboratory [facility] [address] [place] [address] Narrative EXAMINATION:US GALLBLADDER CLINICAL HISTORY: ruq abd [...] to rule out choledocholithiasis if clinical indicated. [id number] Procedure Note Interface, Radiology Results Incoming - [...] to rule out choledocholithiasis if clinical indicated. [facility] [place] [place]-[id number] Lipase level (02/17/2017 11:45 AM)Only the most recent of2 resultswithin the time period is included. Component Value Ref Range Lipase 20 13 - 60 U/L Specimen Performing Laboratory Plasma specimen [facility] DEPARTMENT OF PATHOLOGY AND GENOMIC MEDICINE [address] [place] [address] XR Ankle 3+ Vw Left (02/05/2017 10:25 PM)Only the most recent of3 resultswithin the time period is included. Specimen Performing Laboratory [facility] [address] [place] [address] Narrative EXAMINATION:XR ANKLE 3VW LEFT CLINICAL HISTORY:BONE PAINANKLE COMPARISON:01/24/2017. IMPRESSION: No definite fracture or dislocation of the left ankle. Soft tissue swelling about the ankle. [facility]-[id number] Procedure Note Interface, Radiology Results Incoming - 02/05/2017 10:33 PM CDT EXAMINATION: XR ANKLE 3 VW LEFT CLINICAL HISTORY: BONE PAIN ANKLE COMPARISON: 01/24/2017. IMPRESSION: No definite fracture or dislocation of the left ankle. Soft tissue swelling about the ankle. [facility]-[id number] XR Foot 3+ Vw Left (01/24/2017 12:30 AM)Only the most recent of2 resultswithin the time period is included. Specimen Performing Laboratory [facility] [address] [place] [address] Narrative Examination:XR FOOT 3VW LEFT Clinical History: BONE PAINFOOT Comparison: None. Findings: 3 views of the left foot are obtained. No acute fracture or dislocation is seen. The joint spaces are within normal limits. Soft tissues are unremarkable. Posterior calcaneal spurring is noted. IMPRESSION: 1. No acute abnormality identified in the left foot. [facility]-[id number] Procedure Note Interface, Radiology Results Incoming - [...] acute abnormality identified in the left foot. [facility]-[id number] CT Renal Stone Protocol (01/01/2017 7:51 AM) Specimen Performing Laboratory [facility] [address] [place] [address] Narrative EXAMINATION:CT RENAL STONE PROTOCOL CLINICAL HISTORY:R [...] 4. The appendix has no inflammatory change. [facility] [place] [place]-[id number] Procedure Note [facility], Radiology Results Incoming - 01/01/2017 8:01 AM [...] 4. The appendix has no inflammatory change. [id number] Hepatic function panel (01/01/2017 7:36 AM) Component Value Ref Range Albumin 4.0 3.5 - 5.0 g/dL Total bilirubin 0.2 0.0 - 1.2 mg/dL Bilirubin direct <0.1 0.0 - 0.3 mg/dL Alkaline phosphatase 121 40 - 129 U/L Protein 7.1 6.3 - 8.3 g/dL Comment: [place] 4.6-7.0 g/dL 1 week 4.4-7.6 g/dL 7 months-1year5.1-7.3 g/dL 1-2 years5.6-7.5 g/dL >3 years6.0-8.0 g/dL 18-150 6.3-8.3 g/dL ALT 7 5 - 50 U/L AST 11 10 - 50 U/L Specimen Performing Laboratory Plasma specimen [facility] DEPARTMENT OF PATHOLOGY AND GENOMIC MEDICINE [address] [place] [address] XR Pelvis 1 Or 2 Vw (12/17/2016 12:47 AM) Specimen Performing Laboratory [facility] [address] [place] [address] Narrative XR PELVIS 1 OR 2 VW CLINICAL INDICATION:JOINT PAINHIP COMPARISON:None. IMPRESSION: There is no acute fracture or dislocation. Joint spaces are maintained and there is no evidence of significant arthritis. Osseous mineralization is normal. [facility]-[id number] Procedure Note Interface, Radiology Results Incoming - 12/17/2016 12:53 AM CDT XR PELVIS 1 OR 2 VW CLINICAL INDICATION: JOINT PAIN HIP COMPARISON: None. IMPRESSION: There is no acute fracture or dislocation. Joint spaces are maintained and there is no evidence of significant arthritis. Osseous mineralization is normal. [facility]-[id number] XR Femur 2 Vw Left (12/17/2016 12:46 AM) Specimen Performing Laboratory [facility] [address] [place] [address] Narrative XR FEMUR 2 VW LEFT CLINICAL INDICATION:thigh pain after fall COMPARISON:None. IMPRESSION: There is no acute fracture or dislocation. Joint spaces are maintained and there is no evidence of significant arthritis. Osseous mineralization is normal. [facility]-[id number] Procedure Note Interface, Radiology Results Incoming - 12/17/2016 12:52 AM CDT XR FEMUR 2 VW LEFT CLINICAL INDICATION: thigh pain after fall COMPARISON: None. IMPRESSION: There is no acute fracture or dislocation. Joint spaces are maintained and there is no evidence of significant arthritis. Osseous mineralization is normal. [facility]-[id number] XR Knee 4+ Vw Left (12/17/2016 12:46 AM) Specimen Performing Laboratory [facility] [address] [place] [address] Narrative XR KNEE 4VW LEFT CLINICAL INDICATION:BONE PAINKNEE COMPARISON:None. IMPRESSION: There is no acute fracture or dislocation. There is no knee joint effusion. Joint spaces are maintained and there is no evidence of significant arthritis. Osseous mineralization is normal. [facility]-[id number] Procedure Note Interface, Radiology Results Incoming - 12/17/2016 12:51 AM CDT XR KNEE 4 VW LEFT CLINICAL INDICATION: BONE PAIN KNEE COMPARISON: None. IMPRESSION: There is no acute fracture or dislocation. There is no knee joint effusion. Joint spaces are maintained and there is no evidence of significant arthritis. Osseous mineralization is normal. [facility]-[id number] XR Shoulder 2+ Vw Left (12/08/2016 9:33 AM) Specimen Performing Laboratory [facility] [address] [place] [address] Narrative EXAMINATION:XR SHOULDER 2VW LEFT CLINICAL HISTORY:paininjury COMPARISON:None available at this time. IMPRESSION: 1. No fracture, malalignment, or osseous destructive lesion of the left shoulder. 2. Joint spaces are maintained. No significant degenerative changes. 3. Soft tissues are unremarkable. [facility]-[id number] Procedure Note Interface, Radiology Results Incoming - 12/08/2016 9:38 AM CDT EXAMINATION: XR SHOULDER 2 VW LEFT CLINICAL HISTORY: pain injury COMPARISON: None available at this time. IMPRESSION: 1. No fracture, malalignment, or osseous destructive lesion of the left shoulder. 2. Joint spaces are maintained. No significant degenerative changes. 3. Soft tissues are unremarkable. [facility]-[id number] Urine drugs of abuse screen (11/21/2016 11:00 [...] Comment: Drug screen minimum concentration of detectability Rhrwmlqsezba6238 ng/mL Uegowlvtzmgfdmwe7938 ng/mL Barbiturates 300 ng/mL Zjbsudsravyiwqi327 ng/mL Yhnznqv642 ng/mL Fnhrnfzfb778 ng/mL Sqjlomp419 ng/mL Phencyclidine 25 ng/mL Jnafziiquvtr72 ng/mL Hpmsuvasji5892 ng/mL Negative test results indicates presumptive evidence of lack of clinically significant drug concentration in this urine specimen. Positive test results are presumptive evidence of clinically significant drug concentration in this urine specimen. Testing performed for medical purposes only. Specimen Performing Laboratory Urine - Urine, clean catch [facility] DEPARTMENT OF PATHOLOGY AND GENOMIC MEDICINE [address] [place] [address] Magnesium level (11/07/2016 6:20 PM) Component Value Ref Range Magnesium 1.9 1.6 - 2.6 mg/dL Specimen Performing Laboratory Plasma specimen [facility] DEPARTMENT OF PATHOLOGY AND GENOMIC MEDICINE [address] [place] [address] XR Knee 4+ Vw Right (11/04/2016 1:11 AM) Specimen Performing Laboratory [facility] [address] [place] [address] Narrative XR KNEE 4VW RIGHT CLINICAL INDICATION:BONE PAINKNEE COMPARISON:None. IMPRESSION: There is no acute fracture or dislocation. There is no knee joint effusion. Joint spaces are maintained and there is no evidence of significant arthritis. Osseous mineralization is normal. [facility]-[id number] Procedure Note Interface, Radiology Results Incoming - 11/04/2016 2:51 AM CDT XR KNEE 4 VW RIGHT CLINICAL INDICATION: BONE PAIN KNEE COMPARISON: None. IMPRESSION: There is no acute fracture or dislocation. There is no knee joint effusion. Joint spaces are maintained and there is no evidence of significant arthritis. Osseous mineralization is normal. [facility]-[id number] after 08/12/2016
--- OUTSIDE RECORDS SUMMARY | 2017-08-13 11:19 | XMS REPORT | Clinical Summary ---
:1980 Author Organization [facility] Address [address] [place] [address] Phone Care Team Providers Name Role Phone [...] Right elbow pain DO (Primary Dx) after 08/12/2016 Social History Tobacco Use Types Packs/Day Years Used Date Current Every Day Smoker Cigarettes 1 Smokeless Tobacco: Never Used Alcohol Use Drinks/Week oz/Week Comments No Sex Assigned at Date Recorded Not on file Last Filed Vital Signs Vital Sign Reading Time Taken Blood Pressure 124/58 03/08/2017 9:16 AM [employer] RECALL INSTRUCTOR Pulse 67 03/08/2017 9:15 AM BODY RECALL INSTRUCTOR Temperature 36.6 C (97.8 F) 03/08/2017 7:45 AM BODY RECALL INSTRUCTOR Respiratory Rate 18 03/08/2017 7:45 AM BODY RECALL INSTRUCTOR Oxygen Saturation 98% 03/08/2017 9:15 AM BODY RECALL INSTRUCTOR Inhaled Oxygen Concentration - - Weight 90.7 kg (200 lb) 03/08/2017 7:45 AM BODY RECALL INSTRUCTOR Height 177.8 cm (5' 10") 02/25/2017 8:16 AM CDT Body Mass Index 28.7 03/08/2017 7:45 AM BODY RECALL INSTRUCTOR Plan of Treatment Not on file Results [...] MD Report Verified Date/Time:03/08/2017 09:15:05 Reading Location: [address] Consult Reading Room Procedure Note Interface, External Ris In - 03/08/2017 9:17 AM BODY RECALL INSTRUCTOR FINAL REPORT CT abdomen and pelvis with [...] Verified Date/Time: 03/08/2017 09:15:05 Reading Location: [facility] C013X Ortho Consult Reading Room with platelet [...] Specimen Performing Laboratory Blood - Arm, Right , [facility] [address] [place] [address] CBC with platelet count + automated diff (03/08/2017 8:00 AM)Only the most recent of2 resultswithin the time period is included. Specimen Performing Laboratory Blood Narrative The following orders were created for panel order CBC with platelet count + automated diff. Procedure Abnormality Status --------- ------ CBC with platelet count ...[[id number]]AbnormalFinal result Please view results for these tests on the individual orders. ALT (SGPT) (03/08/2017 8:00 AM) Component Value Ref Range ALT 21 5 - 50 U/L Specimen Performing Laboratory Blood - Arm, [facility], [facility] [address] [place] [address] AST (SGOT) (03/08/2017 8:00 AM) Component Value Ref Range AST 11 5 - 40 U/L Specimen Performing Laboratory Blood - [facility], [facility], [facility], [facility] [address] [place] [address] Lipase (03/08/2017 8:00 AM) Component Value Ref Range Lipase 37 (L) 40 - 240 U/L Specimen Performing Laboratory Blood - Arm, [facility], [facility], [facility] [address] [place] [address] Bilirubin, adult total (03/08/2017 8:00 AM) Component Value Ref Range Total Bilirubin 0.3 0.1 - 1.2 mg/dL Specimen Performing Laboratory Blood - Arm, [facility], [facility], [facility] [address] [place] [address] Basic Metabolic Panel (03/08/2017 8:00 AM) Component [...] Blood - Arm, Right [facility], [facility], [facility] [address] [place] [address] XR foot 3 views left (02/25/2017 8:32 [...] MD Report Verified Date/Time:02/25/2017 08:37:49 Reading Location: [address] Body Reading Room Procedure Note [...] Verified Date/Time: 02/25/2017 08:37:49 Reading Location: [facility] C013Y CT Body Reading Room ECG Interpretation [...] normal. ST segments normal. T waves normal. [place] is normal. Left sided lead use: Posterior [...] Performing Laboratory Urine - Urine, Clean Catch [facility] [address] [place] [address] Narrative DRUGCUTOFF CONC. Cocaine 300 ng/mL Zykmwvigwhy56 ng/mL Mowkoooxsmkshm209 ng/mL Barbiturate 200 ng/mL Suvbdebjwgjfs76 ng/mL Yztzhu799 ng/mL Methadone 300 ng/mL Amphetamine/ 1000 ng/mL Methamphetamine This assay provides an unconfirmed qualitative test result for the clinical management of patients in emergency situations. Chain of custody not maintained. Some rjpj-sib-ynpeakk medications, as well as adulterants, may cause inaccurate results. Clinical correlation should be applied. A more comprehensive drug screen or confirmation of a detected drug may be performed upon request. POC-Glucose meter (01/19/2017 8:04 PM)Only the most recent of2 resultswithin the time period is included. Component Value Ref Range POC-Glucose Meter 241 (H)Comment: TESTED AT [facility] [address] [facility] 70 - 110 mg/dL [facility] [id number] Specimen Performing Laboratory Blood [address] [address] Blood gas, venous (01/19/2017 7:55 PM) Component [...] Specimen Performing Laboratory Blood - Arm, Right [facility] [address] [place] [address] Ketones, blood (01/19/2017 7:55 PM) Component Value Ref Range Ketones, Blood 0.0 <0.4 mmol/L Specimen Performing Laboratory Blood - Arm, Right [facility] [address] [place] [address] XR chest 1 view portable / bedside (01/19/2017 7:51 PM) Specimen Performing Laboratory GE RIS Narrative FINAL REPORT Clinical History: cp Comparison Study: None Findings:The heart and lungs are within normal limits.The pleural spaces are clear.No significant bony or soft tissue abnormalities are seen. Impression: No active cardiopulmonary disease. Signed: Carlos Severino MD Report Verified Date/Time:01/19/2017 19:59:25 Reading Location: [address] Consult Reading Room Procedure Note Interface, External Ris In - 01/19/2017 8:01 PM CDT FINAL REPORT Clinical History: cp Comparison Study: None Findings: The heart and lungs are within normal limits. The pleural spaces are clear. No significant bony or soft tissue abnormalities are seen. Impression: No active cardiopulmonary disease. Signed: Carlos Severino MD Report Verified Date/Time: 01/19/2017 19:59:25 Reading Location: [address] Consult Reading Room Urinalysis w/Microscopic (01/19/2017 7:36 PM)Only the most recent of2 resultswithin the time period is included. Component Value Ref Range Color, UA Light Yellow Clarity, UA Clear Specific [place], UA 1.016 1.001 - 1.035 pH, UA [...] Performing Laboratory Urine - Urine, Clean Catch [facility] [address] [place] [address] Troponin I (01/19/2017 7:33 PM) Component Value Ref Range Troponin I <0.01 0.00 - 0.15 ng/mL Specimen Performing Laboratory Blood - Line, [facility] [address] [place] [address] Narrative Troponin I (TnI) levels must be [...] FEU Specimen Performing Laboratory Blood - Line, [facility] [address] [place] [address] Narrative Intended Use: The D-Dimer Assay can [...] pg/mL Specimen Performing Laboratory Blood - Line, [facility] [address] [place] [address] Creatine Kinase (CK), Total and MB (01/19/2017 7:33 PM) Component Value Ref Range Total CK 57 30 - 300 U/L CK-MB 0.6 0.0 - 4.9 ng/mL MB Relative Index 1.1 % Specimen Performing Laboratory Blood - Line, [facility] [address] [place] [address] Narrative CK-MB Reference Range: <5 Normal 5-10 [...] Specimen Performing Laboratory Blood - Line, Venous [facility] [address] [place] [address] ECG 12 lead (01/19/2017 6:40 PM) Specimen Performing Laboratory GE MUSE Narrative Ventricular Rate 95 BPM Atrial Rate 95 BPM P-R Interval 132 ms QRS Duration 72 ms Q-T Interval 334 ms QTC Calculation(Bazett) 419 ms P [place] 69 degrees R [place] 49 degrees T [place] 52 degrees Normal sinus rhythm with sinus arrhythmia Nonspecific ST and T wave abnormality Abnormal ECG No previous ECGs available Procedure Note Interface, External Ris In - 01/20/2017 12:01 PM CDT Ventricular Rate 95 BPM Atrial Rate 95 BPM P-R Interval 132 ms QRS Duration 72 ms Q-T Interval 334 ms QTC Calculation(Bazett) 419 ms P [place] 69 degrees R [place] 49 degrees T [place] 52 degrees Normal sinus rhythm with sinus [...] MD Report Verified Date/Time:01/15/2017 18:25:26 Reading Location: [address] Reading Room Procedure Note Interface, External [...] Report Verified Date/Time: 01/15/2017 18:25:26 Reading Location: [address] Reading Room brain without IV contrast (01/15/2017 5:49 PM) Specimen Performing Laboratory [place] Narrative FINAL REPORT EXAMINATIONNONCONTRAST HEAD CT SCAN [...] MD Report Verified Date/Time:01/15/2017 18:14:13 Reading Location: [address] Reading Room Procedure Note Interface, External [...] Report Verified Date/Time: 01/15/2017 18:14:13 Reading Location: [address] Reading Room spine lumbar 2 or [...] MD Report Verified Date/Time:12/12/2016 23:13:07 Reading Location: [address] Reading Room Procedure Note Interface, External [...] Report Verified Date/Time: 12/12/2016 23:13:07 Reading Location: [address] Reading Room spine thoracic 2 views [...] MD Report Verified Date/Time:12/12/2016 23:13:07 Reading Location: [address] Reading Room Procedure Note Interface, External [...] Report Verified Date/Time: 12/12/2016 23:13:07 Reading Location: [address] Reading Room elbow 3 views min right (09/25/2016 3:35 PM) Specimen Performing Laboratory GE RIS Impressions : No radiographic abnormalities are visualized in the right elbow. Signed: Kajal Dahl MD Report Verified Date/Time:09/25/2016 15:42:48 Reading Location: [address] Reading Room Narrative FINAL REPORT RIGHT [...] Report Verified Date/Time: 09/25/2016 15:42:48 Reading Location: [facility] B1 C013T Transitional Reading Room after 08/12/2016
--- OUTSIDE RECORDS SUMMARY | 2017-08-13 11:19 | XMS REPORT ---
:1980 [facility] Organization [facility] Address [address] [place] [address] [address]. Dao [address] [place] [address] Care Team Providers Name Role Phone DR JEMMA CRAVEN Unavailable Unavailable Anju WAYNE Unavailable Unavailable DR EBONY HARO Unavailable Unavailable DR VENECIA SANDHU Unavailable Unavailable Barbara MONROE Unavailable Unavailable DR PHOENIX HENDERSON Unavailable Unavailable LINSEY MCCRAY Unavailable Unavailable KIRIT, DR GALVAN Unavailable Unavailable KARIME VALDOVINOS Unavailable Unavailable DR JUANCHO GARZA Unavailable Unavailable ODELL, DR HILL Unavailable Unavailable Problems This patient has no known problems. Allergies, Adverse Reactions, Alerts This patient has no known allergies or adverse reactions. Medications This patient has no known medications. Encounters Start End Encounter Admission Attending Care Care Encounter Date/Time Date/Time Type Type Clinicians Facility Department ID 2017-08-11 2017-08-11 Emergency E JEMMA CRAVEN [facility] [id number] 11:55:00 13:29:00 2017-04-27 2017-04-27 Emergency E ROSANA [facility] [id number] 08:54:00 10:01:00 USMAN 2017-04-20 2017-04-20 Outpatient E TAHIR [facility] [id number] 11:00:00 14:40:00 EBONY 2016-12-12 2016-12-12 Emergency E SHEIKH [facility] [id number] 20:40:00 21:38:00 WASIM Results Test Description Test Time Test Comments Text Results Atomic Results Result Comments XR SPINE CERVICAL 2017-08-11 13:05:14 Cervical spine, 6 viewsLocation code : COMPLETE I3Avdyheid history: M54.2: CERVICALGIAComments: AP, oblique, open mouth odontoid and lateral views of the cervicalspine demonstrate no displaced fracture or malalignment. Intervertebral discspaces are maintained. The oblique projections demonstrate no significantforaminal narrowing. The soft tissues are unremarkable. Impression: No acute abnormality. XR FOOT LEFT 1 OR 2 VIEW 2017-04-27 09:35:56 EXAMINATION: XR ANKLE LEFT 2 VIEW, XR FOOT LEFT 1 OR 2 VIEW.LOCATION: [...] W/O CONTRAST 2017-04-20 14:28:18 [facility] [place] WITHOUT CONTRASTHISTORY: Near syncopal episodeTECHNIQUE: [...] brain with and without CONTRAST contrastLocation code: B5Usietrgh history: Near syncopeTechnique: Multiplanar multisequence MR imaging [...] code=GMG) 161 mg/dL 70-100 CLEANED METERMeter ID: [id number]: [id number] WILFRED RAJU XR ELBOW LEFT COMPLETE 3 [id number] 10:38:15Right Elbow, 3 viewsLocation Code: [id number] HISTORY: Injury, fallCOMMENTS: AP, lateral, and oblique views of the right elbow demonstrate noacute fracture or malalignment. The soft tissues are unremarkable.IMPRESSION: No acute radiographic abnormality.XR CHEST 2 [id number] 10:38:03PA and lateral chest, 2 views.Location code: [id number] HISTORY: Dizziness, fallCOMPARISON: NoneCOMMENTS: The lungs are clear and well inflated. The costophrenic angles aresharp. The cardiomediastinalsilhouette is unremarkable. The bones are intact.IMPRESSION: No acute abnormalityXR SHOULDER LEFT 3 [id number] 10:37:47Left shoulder, 3 viewsLocation Code: [id number] HISTORY: Fall, injury,COMMENTS: AP views in internaland external rotation along with a transscapularY view of the left shoulder were obtained. There is no acute fracture ormalalignment. The soft tissues are unremarkable.IMPRESSION: No acute abnormality.XR HUMERUS LEFT AP & amp; [id number] 10:37:28Left humerus, 2 viewsLocation Code: W3Hgumwzgn history: Trauma, injury, pain Comment: AP and lateralviews of the left humerus demonstrate no displacedfracture or malalignment. The soft tissues are unremarkable.Impression:No acute radiographic abnormality.[id number] 10: 36:00 Test Item Value Reference Range Comments D-DIMER (test code=DDI) <200 ng/mL D-DU 0-234 D-DIMER COMMENT (test *Level to rule out DVT or PE: code=DDCOM) <235 ng/mL D-DU* COMPREHENSIVE METABOLIC [id number] 10:36:00 Test Item Value Reference Range Comments [...] ALT (test code=31A) 18 IU/L <=78 CARDIAC [id number] 10:19:00 Test Item Value Reference Range Comments TROPONIN I (test code=A84) <0.015 ng/mL 0.000-0.045 CKMB (test code=A49) <1.0 ng/mL <=3.6 CPK (test code=32A) 38 IU/L 39-308 PRO TIME AND [id number] 10:12:00 Test Item Value Reference Range Comments [...] MORPH (test code=RBCMOR) NORMAL CT HEAD W/O [id number] 10:02:40CT brain without contrastLocation code: [id number] HISTORY: Dizziness, headache COMPARISON: None.TECHNIQUE: Routine unenhanced [...] No acute intracranial abnormality.DRUGS OF ABUSE * *2017-03-08 14:26:00 Test Item Value Reference Range Comments [...] (test code=WAUAM) NO NO COMPREHENSIVE METABOLIC PHAM *WW*2017-03-08 14:02:00 Test Item Value Reference Range Comments [...] code=60A) 81 IU/L 73-393 CBC (INCLUDES AUTOMATED DIFFERENTIAL)*[id number] 13:47:00 Test Item Value Reference Range Comments [...] NO RBC MORPH (test code=WRBCMOR) NORMAL CT, [id number] 09:15:00Reason for exam:->ABDOMINAL PAINReason for exam :->DIARRHEAReason [...] MDReport Verified Date/Time: 03/08/2017 09:15:05 Reading Location: [facility] C013X [facility] Consult Reading Room BASIC METABOLIC [id number] 08:21:00 Test Item Value Reference Range Comments SODIUM (BEAKER) (test 138 meq/L 135-148 knmy=673) POTASSIUM (BEAKER) (test 3.9 meq/L 3.6-5.5 xily=518) CHLORIDE (BEAKER) (test 108 meq/L 98-106 dksl=297) CO2 (BEAKER) (test 24 meq/L 24-32 gdew=640) BLOOD UREA NITROGEN 7 mg/dL 10-26 (BEAKER) (test ayzl=005) CREATININE (BEAKER) (test 0.56 mg/dL 0.50-1.20 ncgz=209) GLUCOSE RANDOM (BEAKER) 138 mg/dL 70-110 (test nwhh=116) CALCIUM (BEAKER) (test 8.9 mg/dL 8.5-10.5 gugn=702) EGFR (BEAKER) (test 163 mL/min/1.73 sq m ESTIMATED GFR IS NOT suii=0697) ACCURATE CREATININE CLEARANCE IN PREDICTING GLOMERULAR FILTRATION RATE. ESTIMATED GFR IS NOT APPLICABLE FOR DIALYSIS PATIENTS. AST (SGOT)2017-03-08 08:18:00 Test Item Value Reference Range Comments AST (SGOT) (BEAKER) (test ayfn=606) 11 U/L 5-40 ALT (SGPT)2017-03-08 08:18:00 Test Item Value Reference Range Comments ALT (SGPT) (BEAKER) (test viez=972) 21 U/L 5-50 [id number] 08:18:00 Test Item Value Reference Range Comments LIPASE (BEAKER) (test crkm=752) 37 U/L 40-240 BILIRUBIN, ADULT [id number] 08:16:00 Test Item Value Reference Range Comments BILIRUBIN TOTAL (BEAKER) (test fkzf=559) 0.3 mg/dL 0.1-1.2 CBC W/PLT COUNT & AUTO [id number] 08:13:00 Test Item Value Reference Range Comments WHITE BLOOD CELL COUNT (BEAKER) (test 13.1 10e3/ L 4.0-10.0 xrha=483) RED BLOOD CELL COUNT (BEAKER) (test bsvt=272) 4.85 10e6/ L 4.20-5.80 HEMOGLOBIN (BEAKER) (test fedw=370) 13.9 g/dL 13.0-16.8 HEMATOCRIT (BEAKER) (test syjb=843) 42.8 % 40.0-50.0 MEAN CORPUSCULAR VOLUME (BEAKER) (test 88.3 fL 82.0-98.0 rnuj=983) MEAN CORPUSCULAR HEMOGLOBIN (BEAKER) (test 28.6 pg 27.0-33.0 ndpv=771) MEAN CORPUSCULAR HEMOGLOBIN CONC (BEAKER) 32.4 g/dL 32.0-36.0 (test celt=193) RED CELL DISTRIBUTION WIDTH (BEAKER) (test 13.2 % 10.3-14.2 dflw=626) PLATELET COUNT (BEAKER) (test cgoy=263) 366 10e3/ L 150-430 MEAN PLATELET VOLUME (BEAKER) (test gzfp=484) 6.9 fL 6.5-10.5 NEUTROPHILS RELATIVE PERCENT (BEAKER) (test 77 % itsz=138) LYMPHOCYTES RELATIVE PERCENT (BEAKER) (test 12 % fqkp=306) MONOCYTES RELATIVE PERCENT (BEAKER) (test 6 % cdwr=562) EOSINOPHILS RELATIVE PERCENT (BEAKER) (test 4 % lgkx=035) BASOPHILS RELATIVE PERCENT (BEAKER) (test 1 % zqad=455) NEUTROPHILS ABSOLUTE COUNT (BEAKER) (test 10.10 10e3/ L 1.80-8.00 luma=445) LYMPHOCYTES ABSOLUTE COUNT (BEAKER) (test 1.61 10e3/ L 1.48-4.50 pewb=624) MONOCYTES ABSOLUTE COUNT (BEAKER) (test 0.83 10e3/ L 0.00-1.30 xgnz=677) EOSINOPHILS ABSOLUTE COUNT (BEAKER) (test 0.46 10e3/ L 0.00-0.50 pnae=961) BASOPHILS ABSOLUTE COUNT (BEAKER) (test 0.10 10e3/ L 0.00-0.20 npnl=489) RAD, FOOT, MIN 3 VIEWS, [id number] 08:37:00Reason for exam:->FOOT INJURYleft foot injury , [...] MDReport Verified Date/Time: 02/25/2017 08:37:49 Reading Location: [facility] B1 C013Y CT Body Reading Room CT ABDOMEN AND PELVIS WITH CONTRAST*WW*2017-02-25 03:54:12CT ABDOMEN AND PELVIS WITH CONTRAST*WW* Location:[address] hours services are provided 02/25/2017 2:48 AMIndication:RLQ pain.Comparison: Not availableTechnique: Axial CT of the abdomen and pelvis followingthe bolusadministration of nonionic intravenous contrast. Sagittal and coronalreformatted images areprovided for interpretation. All CT [facility] use dose modulation, iterative reconstruction, and or [...] no acute intra-abdominal or pelvicabnormality.AMYLASE AND LIPASE *WW*2017-02-25 02: 53:00 Test Item Value Reference Range Comments AMYLASE (test code=10A) 26 U/L 28-100 LIPASE (test code=60A) 106 IU/L 73-393 COMPREHENSIVE METABOLIC PHAM *WW*2017-02-25 02:53:00 Test Item Value Reference Range Comments [...] (test code=WAUAM) NO NO CBC (INCLUDES AUTOMATED DIFFERENTIAL)*[id number] 02:15:00 Test Item Value Reference Range Comments [...] MORPH (test code=WRBCMOR) NORMAL RAPID DRUG SCREEN, [id number] 20:58:00 Test Item Value Reference Range Comments BARBITURATE URINE (BEAKER) (test efdu=322) Negative Negative BENZODIAZEPINE SCREEN URINE (BEAKER) (test Negative Negative kurt=195) COCAINE (METAB.) SCREEN (BEAKER) (test ipee=3807) Negative Negative METHADONE SCREEN (BEAKER) (test qdvs=7807) Negative Negative OPIATE SCREEN URINE (BEAKER) (test fctc=962) Positive Negative CANNABINOID SCREEN URINE (BEAKER) (test xztp=931) Positive Negative AMPH/METHAMPH SCREEN (BEAKER) (test iqwp=7500) Negative Negative PHENCYCLIDINE SCREEN URINE (BEAKER) (test moua=689) Negative Negative DRUG CUTOFF CONC.Cocaine 300 ng/mL Cannabinoid 50 ng/mLBenzodiazepine 200 ng/mLBarbiturate 200 ng/ mLPhencyclidine 25 ng/mLOpiate 300 ng/mLMethadone 300 ng/mLAmphetamine/ 1000 ng/mL MethamphetamineThis assay provides an unconfirmed qualitative test result for the clinical management of patients in emergency situations. Chain of custody not maintained. Some hkoo-xlr-crijvok medications, as well as adulterants, may cause inaccurate results. Clinical correlation should be applied. A more comprehensivedrug screen or confirmation of a detected drug may be performed upon request.URINALYSIS W/ [id number] 20:27:00 Test Item Value Reference Range Comments COLOR (BEAKER) (test qzlo=152) Light Yellow CLARITY (BEAKER) (test ltvi=900) Clear SPECIFIC GRAVITY UA (BEAKER) (test vbhc=644) 1.016 1.001-1.035 PH UA (BEAKER) (test wksk=750) 6.0 5.0-8.0 PROTEIN UA (BEAKER) (test girp=658) Negative Negative GLUCOSE UA (BEAKER) (test inxp=306) >500 mg/dL Negative KETONES UA (BEAKER) (test fsqz=899) Negative Negative BILIRUBIN UA (BEAKER) (test wpga=776) Negative Negative BLOOD UA (BEAKER) (test geco=578) Negative Negative NITRITE UA (BEAKER) (test lvkd=478) Negative Negative LEUKOCYTE ESTERASE UA (BEAKER) (test bhmr=273) Negative Negative UROBILINOGEN UA (BEAKER) (test owwz=129) < mg/dL 0.2-1.0 RBC UA (BEAKER) (test fjtz=941) < /HPF WBC UA (BEAKER) (test ruez=120) 0 /HPF BACTERIA (BEAKER) (test rwrx=666) Rare MUCUS (BEAKER) (test xozj=5135) Rare SOURCE(BEAKER) (test egwk=8624) KETONE, [id number] 20:12:00 Test Item Value Reference Range Comments KETONES, BLOOD (BEAKER) (test eeet=1930) 0.0 mmol/L <0.4 POCT-GLUCOSE [id number] 20:08:00 Test Item Value Reference Range Comments POC-GLUCOSE METER (BEAKER) 241 mg/dL 70-110 TESTED AT [facility] [address] [facility] (test kkhw=9142) [facility] [address] BLOOD GAS, [id number] 20:05:00 Test Item Value Reference Range Comments PH VENOUS (BEAKER) (test izkn=305) 7.42 7.32-7.42 PCO2 VENOUS (BEAKER) (test spez=993) 36 mmHg 41-51 PO2 VENOUS (BEAKER) (test zmvf=937) 43 mmHg 25-40 O2 SATURATION VENOUS (BEAKER) (test drhd=884) 80.3 % 40.0-70.0 HCO3 VENOUS (BEAKER) (test tdme=959) 23 mmol/L 21-29 BASE EXCESS VENOUS (BEAKER) (test ivxi=554) -1.4 mmol/L -2.0-3.0 PATIENT TEMPERATURE (BEAKER) (test hxtr=7083) 36.7 C CREATINE KINASE (CK), TOTAL AND [id number] 20:05:00 Test Item Value Reference Range Comments CREATINE KINASE TOTAL (BEAKER) (test keju=556) 57 U/L 30-300 CREATINE KINASE-MB (BEAKER) (test mfvj=614) 0.6 ng/mL 0.0-4.9 CREATINE KINASE-MB INDEX (BEAKER) (test rect=889) 1.1 % CK-MB Reference Range:<5 Normal5-10 Borderline>10 AbnormalTROPONIN [id number] 20:05:00 Test Item Value Reference Range Comments TROPONIN I (BEAKER) (test stsa=670) < ng/mL 0.00-0.15 Troponin I (TnI) levels [...] NATRIURETIC PEPTIDE (BEAKER) (test < pg/mL 0-100 rtxw=426) [id number] 19:59:00 Test Item Value Reference Range Comments D-DIMER QUANTITATIVE (BEAKER) (test iuiu=094) < MG/L FEU <0.50 Intended Use: The [...] within 95-100% range.RAD, CHEST, 1 VIEW, NON [id number] 19:59:00Reason for exam:->cpShould this be performed at the bedside?->YesFINAL REPORT Clinical History: cp Comparison Study: None Findings: The heartand lungs are within normal limits. The pleural spaces are clear. No significant bony or soft tissue abnormalities are seen. Impression: No active cardiopulmonary disease. Signed: Carlos Severino MDReport Verified Date/Time: 01/19/2017 19:59:25 Reading Location: [facility] C013W Consult Reading Room COMPREHENSIVE METABOLIC [id number] 19:58:00 Test Item Value Reference Range Comments TOTAL PROTEIN (BEAKER) 6.7 gm/dL 6.0-8.5 Specimen moderately (test rpte=309) hemolyzed ALBUMIN (BEAKER) (test 3.5 g/dL 3.5-5.0 Specimen moderately zfod=4566) hemolyzed ALKALINE PHOSPHATASE 84 U/L 30-115 (BEAKER) (test nwif=167) BILIRUBIN TOTAL (BEAKER) 0.2 mg/dL 0.1-1.3 Specimen moderately (test oxqb=367) hemolyzed SODIUM (BEAKER) (test 138 meq/L 135-148 fmro=674) POTASSIUM (BEAKER) (test 3.8 meq/L 3.5-5.5 Specimen moderately yehs=474) hemolyzed CHLORIDE (BEAKER) (test 106 meq/L 98-106 trgv=523) CO2 (BEAKER) (test 21 meq/L 20-31 qbzx=425) BLOOD UREA NITROGEN 6 mg/dL 10-26 (BEAKER) (test zosy=734) CREATININE (BEAKER) (test 0.84 mg/dL 0.50-1.20 Specimen moderately doma=875) hemolyzed GLUCOSE RANDOM (BEAKER) 289 mg/dL 70-110 (test rfzv=313) CALCIUM (BEAKER) (test 8.8 mg/dL 8.5-10.5 iigh=568) AST (SGOT) (BEAKER) (test 20 U/L 5-40 Specimen moderately ggzz=654) hemolyzed ALT (SGPT) (BEAKER) (test 13 U/L 6-50 Specimen moderately cfkv=285) hemolyzed EGFR (BEAKER) (test 103 mL/min/1.73 sq ESTIMATED GFR IS NOT nqpy=5835) m ACCURATE CREATININE CLEARANCE IN PREDICTING GLOMERULAR FILTRATION RATE. ESTIMATED GFR IS NOT APPLICABLE FOR DIALYSIS PATIENTS. CBC W/PLT COUNT & AUTO [id number] 19:42:00 Test Item Value Reference Range Comments WHITE BLOOD CELL COUNT (BEAKER) (test rtew=312) 12.4 K/ L 4.0-10.0 RED BLOOD CELL COUNT (BEAKER) (test ajrr=333) 4.98 M/ L 4.20-5.80 HEMOGLOBIN (BEAKER) (test kelh=268) 14.4 GM/DL 13.0-16.8 HEMATOCRIT (BEAKER) (test vbez=365) 43.5 % 40.0-50.0 MEAN CORPUSCULAR VOLUME (BEAKER) (test sfyh=768) 87.4 fL 82.0-98.0 MEAN CORPUSCULAR HEMOGLOBIN (BEAKER) (test 28.8 pg 27.0-33.0 wpwl=561) MEAN CORPUSCULAR HEMOGLOBIN CONC (BEAKER) (test 33.0 GM/DL 32.0-36.0 apgy=060) RED CELL DISTRIBUTION WIDTH (BEAKER) (test 13.9 % 12.0-15.0 oyud=671) PLATELET COUNT (BEAKER) (test vtel=728) 313 K/CU MM 150-430 MEAN PLATELET VOLUME (BEAKER) (test byid=660) 8.6 fL 6.5-10.5 NUCLEATED RED BLOOD CELLS (BEAKER) (test 0 /100 WBC 0-0 wwfe=394) NEUTROPHILS RELATIVE PERCENT (BEAKER) (test 60 % memn=408) LYMPHOCYTES RELATIVE PERCENT (BEAKER) (test 29 % jsna=250) MONOCYTES RELATIVE PERCENT (BEAKER) (test 7 % owzi=675) EOSINOPHILS RELATIVE PERCENT (BEAKER) (test 3 % cgdh=159) BASOPHILS RELATIVE PERCENT (BEAKER) (test 1 % zros=554) NEUTROPHILS ABSOLUTE COUNT (BEAKER) (test 7.40 K/ L 1.80-8.00 iibf=663) LYMPHOCYTES ABSOLUTE COUNT (BEAKER) (test 3.60 K/ L 1.48-4.50 blqx=836) MONOCYTES ABSOLUTE COUNT (BEAKER) (test 0.80 K/ L 0.00-1.30 btiv=543) EOSINOPHILS ABSOLUTE COUNT (BEAKER) (test 0.40 K/ L 0.00-0.50 fslc=806) BASOPHILS ABSOLUTE COUNT (BEAKER) (test 0.20 K/ L 0.00-0.20 wktj=059) POCT-GLUCOSE [id number] 19:02:00 Test Item Value Reference Range Comments POC-GLUCOSE METER (BEAKER) 367 mg/dL 70-110 TESTED AT [facility] [address] [facility] (test kdqx=3798) [facility] [address] CT, SPINE, CERVICAL, WO [id number] 18:25:00Reason for exam:->NECK PAINWhat is the patient's [...] MDReport Verified Date/Time: 01/15/2017 18:25:26 Reading Location: [address] Reading Room Electronically signed by: NBA MITTAL M.D.on 01/15/2017 06:25 PMCT, BRAIN, WITHOUT [id number] 18:14:00Reason for exam:->NECK PAINWhat is the patient's [...] further evaluation if warranted. Signed: Nba Mittal MDReport Verified Date/Time: 18:14:13 Reading Location: [address] Reading Room XR KNEE RIGHT 3 [id number] 22:22:15EXAM: Portable right knee series, 3 viewsLocation: [id number]: Fell on right knee and twisted right kneeCOMPARISON: None.DISCUSSION: Frontal, oblique, and crosstable lateral views of the right kneeare submitted. No fracture, dislocation, lytic or blastic lesions areidentified. Joint spaces appear well preserved. No joint effusion is seen.IMPRESSION:No acute bony abnormalities.XR ANKLE RIGHT COMPLETE 3 [id number] 22:21:22EXAM: Right ankle series, 3 viewsLocation: [id number]: Fell, twisted right ankleCOMPARISON: None.DISCUSSION: Frontal, oblique, and lateral views of the right ankle aresubmitted. There is a questionable hairline fracture of the distal fibula, onlyseen on the oblique view near the ankle mortise. No other evidence of fractureis seen.IMPRESSION: Questionable hairline fracture of the distal fibula.RAPID DRUG SCREEN, [id number] 23:10:00 Test Item Value Reference Range Comments BARBITURATE URINE (BEAKER) (test iugb=229) Negative Negative BENZODIAZEPINE SCREEN URINE (BEAKER) (test Negative Negative raqw=580) COCAINE (METAB.) SCREEN (BEAKER) (test zelp=7897) Negative Negative METHADONE SCREEN (BEAKER) (test mpjz=1861) Negative Negative OPIATE SCREEN URINE (BEAKER) (test zjfs=921) Positive Negative CANNABINOID SCREEN URINE (BEAKER) (test sifm=883) Negative Negative AMPH/METHAMPH SCREEN (BEAKER) (test wkpc=6713) Negative Negative PHENCYCLIDINE SCREEN URINE (BEAKER) (test vdfg=008) Negative Negative DRUG CUTOFF CONC.Cocaine 300 ng/mL Cannabinoid 50 ng/mLBenzodiazepine 200 ng/mLBarbiturate 200 ng/ mLPhencyclidine 25 ng/mLOpiate 300 ng/mLMethadone 300 ng/mLAmphetamine/ 1000 ng/mL MethamphetamineThis assay provides an unconfirmed qualitative test result for the clinical management of patients in emergency situations. Chain of custody not maintained. Some ekco-zta-smzcjsl medications, as well as adulterants, may cause inaccurate results. Clinical correlation should be applied. A more comprehensivedrug screen or confirmation of a detected drug may be performed upon request.URINALYSIS W/ [id number] 22:55:00 Test Item Value Reference Range Comments COLOR (BEAKER) (test jdet=855) Yellow CLARITY (BEAKER) (test fprj=233) Clear SPECIFIC GRAVITY UA (BEAKER) (test jbyt=382) 1.025 1.001-1.035 PH UA (BEAKER) (test qamy=836) 6.0 5.0-8.0 PROTEIN UA (BEAKER) (test viev=700) Negative Negative GLUCOSE UA (BEAKER) (test dxrk=284) Negative Negative KETONES UA (BEAKER) (test gtuf=660) Negative Negative BILIRUBIN UA (BEAKER) (test ydze=824) Negative Negative BLOOD UA (BEAKER) (test hfwx=904) Negative Negative NITRITE UA (BEAKER) (test vvug=336) Negative Negative LEUKOCYTE ESTERASE UA (BEAKER) (test rvmh=039) Negative Negative UROBILINOGEN UA (BEAKER) (test xlxt=400) 0.2 mg/dL 0.2-1.0 BACTERIA (BEAKER) (test wuhm=586) Occasional MUCUS (BEAKER) (test xvcd=1043) Many RBC UA-MANUAL (BEAKER) (test oyar=3352) <5 /HPF WBC UA-MANUAL (BEAKER) (test zhzj=6506) <5 /HPF SQUAMOUS EPITHELIAL MANUAL (BEAKER) (test <5 /HPF graq=9301) SOURCE(BEAKER) (test qzcm=2834) XR SHOULDER LEFT 3 [id number] 09:00:14EXAMINATION: XR SHOULDER LEFT 3 VIEWS.LOCATION: D4.HISTORY: shoulder pain while carrying heavy load.COMPARISON: Left shoulder x-ray 04/16/2015.FINDINGS/IMPRESSION:Three views of left shoulder demonstrates acute osseous abnormality. Nodislocation. Left clavicle appears intact. Visualized left lung parenchymaappears unremarkable.
[2017-08-13 11:56] LABS: Absolute Lymphocytes (CBC) 2.3 K/uL (0.7-4.9); Absolute Monocytes 0.8 K/uL (0.1-1.3); Absolute Neutrophil 7.9 K/uL (1.8-8.0); Basophils % 0.9 % (0-1.3); Eosinophils % 3.6 % (0-4.4); Hematocrit 43.6 % (39.6-49.0); Lymphocytes % 19.9 % (15.3-44.8); MCH 27.5 pg (27.0-35.0); MCV 81.3 fL (80-100); MPV 7.1 fL (7.6-11.3); Monocytes % 7.1 % (3.3-12.3); RBC Red Blood Cell Count 5.37 M/uL (4.33-5.43)
--- NOTE | 2017-08-13 12:02 | RAD REPORT ---
EXAM DESCRIPTION: CT - Head C Spine Cap Shauna Machado - 08/13/2017 11:50 am CLINICAL HISTORY: Trauma, head and neck injury. Chest, abdomen and pelvis pain. COMPARISON: None. TECHNIQUE: CT head without contrast. CT cervical spine without contrast with coronal and sagittal reformatted images. CT chest, abdomen and pelvis with contrast with coronal and sagittal reformatted images of the spine. All CT scans are performed using dose optimization technique as appropriate and may include automated exposure control or mA/KV adjustment according to patient size. FINDINGS: CT HEAD WITHOUT CONTRAST: No intracranial hemorrhage, hydrocephalus or extra-axial fluid collection. No areas of brain edema o r midline shift. The paranasal sinuses and mastoids are clear. The calvarium is intact. CT CERVICAL SPINE WITHOUT CONTRAST: No fracture or subluxation. The prevertebral soft tissues are normal in thickness. CT CHEST, ABDOMEN, PELVIS WITH CONTRAST: The lungs are clear.A few subcentimeter nodular densities are present in the lungs.No pneumothorax or pericardial/pleural fluid. No evidence of intra-abdominal visceral injury, free fluid or free air. No concerning pelvic findings. No fractures. IMPRESSION: Negative for acute traumatic findings.
[2017-08-13 12:05] LABS: Glucose Level 170 mg/dL (65-120)
[2017-08-13 12:06] LABS: BUN Blood Urea Nitrogen 6 mg/dL (6-20)
[2017-08-13 12:12] LABS: Bicarbonate 25 mEq/L (21-31); Sodium Level 135 mEq/L (135-145)
[2017-08-13] MEDS ORDERED: POTASSIUM 25 MEQ EFFERV TAB ONE (12:35)
[2017-08-13] MEDS ORDERED: ONDANSETRON 4 MG/2 ML VIAL ONE (12:35)
[2017-08-13] MEDS ORDERED: FENTANYL CITR 100 MCG/2 ML ONE ×2 (12:35→16:34)
[2017-08-13] MEDS ORDERED: NA CHLORIDE 0.9% 1,000 ML ONE (12:36)
[2017-08-13] MEDS ORDERED: POTASSIUM CL SA 10 MEQ TAB PO ONE (13:33)
--- NOTE | 2017-08-13 16:15 | EDPHYS ---
Physician Documentation [facility] Name: Adria Guallpa Jr Age: 37 yrs Sex: Male : 1980 Arrival Date: 08/13/2017 Time: 11:18 Bed 6 Private MD: ED Physician Jin Mace HPI: 08/13 12:02 This 37 yrs old Male presents to ER via Ambulatory with complaints of Fall jr8 Injury - 8 Ft Ladder, Neck Pain, <24hrs Old, Head Injury With LOC-Adult. 12:02 Details of fall: The patient fell from a height, from a ladder, approximately 8 feet. jr8 Onset: The symptoms/episode began/occurred acutely, today. Associated injuries: The patient sustained injury to the head, neck injury, upper back injury, injury to the low back, injury to the chest, injury to the abdomen. Severity of symptoms: At their worst the symptoms were moderate, in the emergency department the symptoms are unchanged. It is unknown whether or not the patient has had similar symptoms in the past. The patient has not recently seen a physician. Patient stated that he fell off of ladder. Does not remember hitting ground. Stated that he started to feel dizzy while on ladder and then blacked out which caused him to fall. Only thing he remembered after blacking out was waking up on ground. Friend brought him to hospital. Complains of head pain, neck pain, upper and lower back pain along with chest tightness and abdominal pain. Historical: - Allergies: 11:32 Flexeril; ss 11:32 Ibuprofen; ss 11:32 Toradol; ss - Home Meds: 11:32 gabapentin 300 mg Oral cap 1 cap twice a day [Active]; metformin 500 mg Oral tab 1 tab ss 2 times per day [Active]; - PMHx: 11:32 Chronic pain; Diabetes - NIDDM; Myocardial infarction; ss - PSHx: 11:32 Eye Surgery; ss - Immunization history: Last tetanus immunization: unknown. ROS: 12:02 Eyes: Negative for injury, pain, redness, and discharge, ENT: Negative for injury, jr8 pain, and discharge, Respiratory: Negative for shortness of breath, cough, wheezing, and pleuritic chest pain, MS/Extremity: Negative for injury and deformity, Skin: Negative for injury, rash, and discoloration, Neuro: Negative for headache, weakness, numbness, tingling, and seizure. 12:02 Neck: Positive for pain with movement, pain at rest, tenderness, bony tenderness. 12:02 Cardiovascular: Positive for chest pain, with movement, Negative for edema, orthopnea, palpitations, paroxysmal nocturnal dyspnea. 12:02 Abdomen/GI: Positive for abdominal pain, Negative for nausea, vomiting, and diarrhea, hematemesis, rectal bleeding, bowel incontinence, flatulence. 12:02 Back: Positive for pain at rest, pain with movement, of the thoracic area and lumbar area. Exam: 12:02 Head/Face: Normocephalic, atraumatic. Eyes: Pupils equal round and reactive to light, jr8 extra-ocular motions intact. Lids and lashes normal. Conjunctiva and sclera are non-icteric and not injected. Cornea within normal limits. Periorbital areas with no swelling, redness, or edema. ENT: Nares patent. No nasal discharge, no septal abnormalities noted. Tympanic membranes are normal and external auditory canals are clear. Oropharynx with no redness, swelling, or masses, exudates, or evidence of obstruction, uvula midline. Mucous membranes moist. Chest/axilla: Normal chest wall appearance and motion. Nontender with no deformity. No lesions are appreciated. Cardiovascular: Regular rate and rhythm with a normal S1 and S2. No gallops, murmurs, or rubs. Normal PMI, no JVD. No pulse deficits. Respiratory: Lungs have equal breath sounds bilaterally, clear to auscultation and percussion. No rales, rhonchi or wheezes noted. No increased work of breathing, no retractions or nasal flaring. Skin: Warm, dry with normal turgor. Normal color with no rashes, no lesions, and no evidence of cellulitis. MS/ Extremity: Pulses equal, no cyanosis. Neurovascular intact. Full, normal range of motion. Neuro: Awake and alert, GCS 15, oriented to person, place, time, and situation. Cranial nerves II-XII grossly intact. Motor strength 5/5 in all extremities. Sensory grossly intact. Cerebellar exam normal. Normal gait. 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 12:02 Abdomen/GI: Inspection: abdomen appears normal, Bowel sounds: active, all quadrants, Palpation: soft, in all quadrants, mild abdominal tenderness, in the right upper quadrant and left upper quadrant, Indicators: McBurney's point is not tender, Fried's sign is negative, Rovsing's sign is negative, Liver: tenderness, is not appreciated. 12:02 Back: pain, that is mild, of the thoracic area and lumbar area, ROM is painful, normal spinal alignment noted, CVA tenderness, is absent. Vital Signs: 11:19 BP 144 / 93; Pulse 113; Resp 20; Temp 98.6(TE); Pulse Ox 99% on R/A; Weight 81.65 kg; ss Height 5 ft. 10 in. (177.80 cm); Pain 9/10; 12:00 BP 122 / 72; Pulse 103; Resp 18; Temp 98.6; Pulse Ox 95% ; sv 13:30 BP 103 / 79; Pulse 86; Resp 16; Pulse Ox 97% on R/A; ss 14:46 BP 104 / 73; Pulse 76; Resp 14; Pulse Ox 97% ; Pain 6/10; ss 15:34 BP 109 / 78; Pulse 82; Resp 24; Pulse Ox 96% ; sv 15:44 BP 115 / 77 LA Supine (auto/reg); Pulse 81; Resp 18; Pulse Ox 98% ; ms 15:44 BP 111 / 77 LA Sitting (auto/reg); Pulse 88; Resp 18; Pulse Ox 98% ; ms 15:44 BP 109 / 76 LA Standing (auto/reg); Pulse 89; Resp 18; Pulse Ox 100% ; ms 17:32 BP 108 / 73; Pulse 81; Resp 18; Pulse Ox 97% ; sv 11:19 Body Mass Index 25.83 (81.65 kg, 177.80 cm) Ksenia Coma Score: 11:19 Eye Response: spontaneous(4). Verbal Response: oriented(5). Motor Response: obeys ss commands(6). Total: 15. 12:00 Eye Response: spontaneous(4). Verbal Response: oriented(5). Motor Response: obeys sv commands(6). Total: 15. 13:30 Eye Response: spontaneous(4). Verbal Response: oriented(5). Motor Response: obeys ss commands(6). Total: 15. 14:46 Eye Response: spontaneous(4). Verbal Response: oriented(5). Motor Response: obeys ss commands(6). Total: 15. Trauma Score (Adult): 11:19 Eye Response: spontaneous(1); Verbal Response: oriented(1); Motor Response: obeys ss commands(2); Systolic BP: > 89 mm Hg(4); Respiratory Rate: 10 to 29 per min(4); [place] Score: 15; Trauma Score: 12 12:00 Eye Response: spontaneous(1); Verbal Response: oriented(1); Motor Response: obeys sv commands(2); Systolic BP: > 89 mm Hg(4); Respiratory Rate: 10 to 29 per min(4); [place] Score: 15; Trauma Score: 12 MDM: 11:28 Patient medically screened. [facility] 15:04 Data reviewed: vital signs, nurses notes, lab test result(s), EKG, radiologic studies, jr8 CT scan. Data interpreted: Pulse oximetry: on room air is 97 %. Interpretation: normal. Counseling: I had a detailed discussion with the patient and/or guardian regarding: the historical points, exam findings, and any diagnostic results supporting the discharge/admit diagnosis, lab results, radiology results. ED course: Patient has improved after medications . 16:13 ED course: Patient with close f/u and care at home. Will send home to rest. If worse to jr8 come back . 08/13 11:26 Order name: Basic Metabolic Panel; Complete Time: 12:13 08/13 11:26 Order name: CBC with Diff; Complete Time: 12:01 08/13 11:26 Order name: Creatinine for Radiology; Complete Time: 12:13 08/13 11:26 Order name: Type And Screen; Complete Time: 14:29 08/13 13:28 Order name: ABO/RH no charge; Complete Time: 14:29 EDMS 08/13 16:01 Order name: Urine Dipstick--Ancillary (enter results); Complete Time: 17:05 eb 08/13 11:26 Order name: CT Traumagram (Head C Spine CAP W Con); Complete Time: 12:05 08/13 14:59 Order name: EKG; Complete Time: 14:59 jr8 08/13 16:19 Order name: Troponin (emerg Dept Use Only) [facility] 08/13 11:26 Order name: Labs collected and sent; Complete Time: 11:27 08/13 11:26 Order name: Urine Dipstick-Ancillary (obtain specimen); Complete Time: 16:19 08/13 14:59 Order name: EKG - Nurse/Tech; Complete Time: 16:07 [facility] 08/13 14:59 Order name: Orthostatic Blood Pressure; Complete Time: 15:47 [facility] 08/13 16:32 Order name: CONS Physician Consult [facility] 08/13 16:42 Order name: Diet Regular; Complete Time: 16:43 sg Administered Medications: 12:30 Drug: fentaNYL (PF) 75 mcg Route: IVP; Site: right forearm; sg 14:45 Follow up: Response: No adverse reaction; Pain is decreased ss 12:30 Drug: Zofran 4 mg Route: IVP; Site: right forearm; sg 14:45 Follow up: Response: No adverse reaction ss 12:30 Drug: NS 0.9% 1000 ml Route: IV; Rate: 1000 ml; Site: right forearm; sg 14:45 Drug: Potassium Chloride 40 mEq Route: PO; ss 15:42 Follow up: Response: No adverse reaction sv 16:41 Drug: fentaNYL (PF) 75 mcg Route: IVP; Site: right forearm; sg Disposition: 08/14 09:10 Co-signature as Attending Physician, Jin Mace MD I agree with the assessment and sabina plan of care. Disposition: 08/13/17 16:16 Hospitalization ordered by Tiffani Dinero for Observation. Preliminary diagnosis are Concussion with loss of consciousness of unspecified duration, Acute pain due to trauma, Syncope and collapse. - Bed requested for Telemetry/MedSurg (observation). - Status is Observation. sg - Condition is Stable. - Problem is new. - Symptoms have improved. UTI on Admission? No Signatures: Dispatcher [employer] [facility] Govind Zuniga RN RN sg Anderson, Corey, MD MD cha Smirch, Shelby, RN RN Eliu Hampton PA PA jr8 Viola Holloway Stephanie RN sv Corrections: (The following items were deleted from the chart) 08/13 12:37 12:02 Patient stated that he fell off of ladder. Does not remember hitting ground. jr8 Friend brought him to hospital. Complains of head pain, neck pain, upper and lower back pain along with chest tightness and abdominal pain. jr8
--- NOTE | 2017-08-13 16:15 | ER ---
Nurse's Notes [facility] Name: Adria Guallpa Jr Age: 37 yrs Sex: Male : 1980 Arrival Date: 08/13/2017 Time: 11:18 Bed 6 Private MD: Diagnosis: Concussion with loss of consciousness of unspecified duration;Acute pain due to trauma;Syncope and collapse Presentation: 08/13 11:19 Presenting complaint: Patient states: Patient reports he fell approx 8 feet off of a ss ladder two hours ago. Pt states, "I just thought the pain would go away." Pt states, "I don't remember anything from the incident, my cousin saw it, but he dropped me off and had to go to work.". Care prior to arrival: None. Mechanism of Injury: Fall from ladder approximately 8 feet. Trauma event details: Injury occurred in the [facility], Injury occurred: August 13, 2017. 11:19 Acuity: DAVE 2 ss 11:19 Method Of Arrival: Ambulatory ss 11:31 Transition of care: patient was not received from another setting of care. Onset of ss symptoms was August 13, 2017. Initial Sepsis Screen: Does the patient meet any 2 criteria? No. Patient's initial sepsis screen is negative. Does the patient have a suspected source of infection? No. Patient's initial sepsis screen is negative. Historical: - Allergies: 11:32 Flexeril; ss 11:32 Ibuprofen; ss 11:32 Toradol; ss - Home Meds: 11:32 gabapentin 300 mg Oral cap 1 cap twice a day [Active]; metformin 500 mg Oral tab 1 tab ss 2 times per day [Active]; - PMHx: 11:32 Chronic pain; Diabetes - NIDDM; Myocardial infarction; ss - PSHx: 11:32 Eye Surgery; ss - Immunization history: Last tetanus immunization: unknown. Screenin:19 Abuse screen: Denies threats or abuse. Denies injuries from another. Tuberculosis ss screening: Never had TB. Primary Survey: :19 A: Airway: patent, No supplemental oxygen in use on arrival. Oral cavity: clear, ss Trachea midline. Breathing/Chest: Respiratory pattern: regular, Respiratory effort: spontaneous, unlabored, Breath sounds: clear, bilaterally. Chest inspection: symmetrical rise and fall of the chest. Circulation: Pulses: palpable right radial artery and left radial artery. Skin color: pink. Disability Alert. Secondary Survey: 11:19 HEENT: Head No injury/deformity Face No injury/deformity Eyes: No injury or deformity ss noted. Ears: clear Nose: clear. Musculoskeletal: Capillary refill < 3 seconds, is brisk, in bilateral fingers. Range of motion: intact in all extremities. Assessment: 11:19 General: Appears uncomfortable, Behavior is calm, cooperative. General: C collar placed ss on arrival to exam room . Pain: Complains of pain in back of neck, bilateral shoulders, upper back and head in entire Pain currently is 9 out of 10 on a pain scale. Quality of pain is described as aching, Pain began 2 hours ago. Is continuous. Neuro: Level of Consciousness is awake, alert, obeys commands, Oriented to person, place, time, situation. EENT: Ear canal clear on right ear and left ear Nares are clear Oral mucosa is moist. Throat is clear is pink. Cardiovascular: Heart tones S1 S2 present Capillary refill < 3 seconds is brisk in bilateral fingers Patient's skin is warm and dry. Pulses are palpable in right radial artery, right posterior tibial artery, left radial artery and left posterior tibial artery. Respiratory: Airway is patent Respiratory effort is even, unlabored, Respiratory pattern is regular, symmetrical, Breath sounds are clear bilaterally. GI: Patient currently denies abdominal pain, diarrhea, nausea, vomiting. : No signs and/or symptoms were reported regarding the genitourinary system. Derm: Skin is intact, is healthy with good turgor, Skin is dry, Skin is pink, warm \\T\\ dry. normal. Musculoskeletal: Circulation, motion, and sensation intact. Range of motion: intact in all extremities, Swelling absent. 13:00 Reassessment: Patient appears in no apparent distress at this time. Patient and/or sg family updated on plan of care and expected duration. Pain level reassessed. Patient is alert, oriented x 3, equal unlabored respirations, skin warm/dry/pink. pt laying supine in bed, HOB elevated 45 degrees, pt awakens easily to verbal stimuli, srx2 with bed in low and locked position , remains on monitors, pt reports pain continues in neck continues after pain medication. 14:47 Reassessment: pt is resting with eyes closed, respirations even and unlabored. Pt ss easily aroused with verbal stimuli and educated on reason for administering PO potassium. Pt verbalizes understanding. 15:30 Reassessment: Patient appears in no apparent distress at this time. Patient and/or sg family updated on plan of care and expected duration. Pain level reassessed. Patient is alert, oriented x 3, equal unlabored respirations, skin warm/dry/pink. awaiting new orders at this time, pt updated on POC. 16:30 Reassessment: Patient appears in no apparent distress at this time. Patient and/or sg family updated on plan of care and expected duration. Pain level reassessed. Patient is alert, oriented x 3, equal unlabored respirations, skin warm/dry/pink. pt requesting a diet tray be ordered, Virgie BABB notified, orders received for a regular diet tray, awaiting a tray from dietary at this time Patient states symptoms have not improved. 17:45 Reassessment: Patient appears in no apparent distress at this time. Patient and/or sv family updated on plan of care and expected duration. Pain level reassessed. Patient is alert, oriented x 3, equal unlabored respirations, skin warm/dry/pink. Vital Signs: 11:19 BP 144 / 93; Pulse 113; Resp 20; Temp 98.6(TE); Pulse Ox 99% on R/A; Weight 81.65 kg; ss Height 5 ft. 10 in. (177.80 cm); Pain 9/10; 12:00 BP 122 / 72; Pulse 103; Resp 18; Temp 98.6; Pulse Ox 95% ; sv 13:30 BP 103 / 79; Pulse 86; Resp 16; Pulse Ox 97% on R/A; ss 14:46 BP 104 / 73; Pulse 76; Resp 14; Pulse Ox 97% ; Pain 6/10; ss 15:34 BP 109 / 78; Pulse 82; Resp 24; Pulse Ox 96% ; sv 15:44 BP 115 / 77 LA Supine (auto/reg); Pulse 81; Resp 18; Pulse Ox 98% ; ms 15:44 BP 111 / 77 LA Sitting (auto/reg); Pulse 88; Resp 18; Pulse Ox 98% ; ms 15:44 BP 109 / 76 LA Standing (auto/reg); Pulse 89; Resp 18; Pulse Ox 100% ; ms 17:32 BP 108 / 73; Pulse 81; Resp 18; Pulse Ox 97% ; sv 11:19 Body Mass Index 25.83 (81.65 kg, 177.80 cm) ss Ksenia Coma Score: 11:19 Eye Response: spontaneous(4). Verbal Response: oriented(5). Motor Response: obeys ss commands(6). Total: 15. 12:00 Eye Response: spontaneous(4). Verbal Response: oriented(5). Motor Response: obeys sv commands(6). Total: 15. 13:30 Eye Response: spontaneous(4). Verbal Response: oriented(5). Motor Response: obeys ss commands(6). Total: 15. 14:46 Eye Response: spontaneous(4). Verbal Response: oriented(5). Motor Response: obeys ss commands(6). Total: 15. Trauma Score (Adult): 11:19 Eye Response: spontaneous(1); Verbal Response: oriented(1); Motor Response: obeys ss commands(2); Systolic BP: > 89 mm Hg(4); Respiratory Rate: 10 to 29 per min(4); [place] Score: 15; Trauma Score: 12 12:00 Eye Response: spontaneous(1); Verbal Response: oriented(1); Motor Response: obeys sv commands(2); Systolic BP: > 89 mm Hg(4); Respiratory Rate: 10 to 29 per min(4); [place] Score: 15; Trauma Score: 12 ED Course: 11:18 Patient arrived in ED. as 11:19 Patient maintains SpO2 saturation greater than 95% on room air. ss 11:19 Patient has correct armband on for positive identification. Bed in low position. Call ss light in reach. Side rails up X2. Patient maintains SpO2 saturation greater than 95% on room air. campus monitor on. Pulse ox on. NIBP on. 11:20 Eliu Hampton PA is PHCP. jr8 11:20 Jin Mace MD is Attending Physician. jr8 11:26 Govind Zuniga RN is Primary Nurse. sg 11:28 Triage completed. ss 11:28 Initial lab(s) drawn, by me, sent to lab. Inserted saline lock: 20 gauge in right ms antecubital area, using aseptic technique. Blood collected. 11:32 Arm band placed on right wrist. ss 11:[address] via stretcher. cw1 11:50 CT completed. Patient moved back from CT. cw1 11:51 CT Traumagram (Head C Spine CAP W Con) In Process Unspecified. EDMS 16:07 EKG done, by ED staff, reviewed by Eliu BABB. sv 16:16 Tiffani Dinero MD is Hospitalizing Provider. jr8 17:44 No provider procedures requiring assistance completed. Patient admitted, IV remains in sv place. intact. 17:47 Initial lab(s) drawn, by ED staff, sent to lab. sv Administered Medications: 12:30 Drug: fentaNYL (PF) 75 mcg Route: IVP; Site: right forearm; sg 14:45 Follow up: Response: No adverse reaction; Pain is decreased ss 12:30 Drug: Zofran 4 mg Route: IVP; Site: right forearm; sg 14:45 Follow up: Response: No adverse reaction ss 12:30 Drug: NS 0.9% 1000 ml Route: IV; Rate: 1000 ml; Site: right forearm; sg 14:45 Drug: Potassium Chloride 40 mEq Route: PO; ss 15:42 Follow up: Response: No adverse reaction sv 16:41 Drug: fentaNYL (PF) 75 mcg Route: IVP; Site: right forearm; sg Outcome: 16:14 Discharge ordered by . jr8 16:16 Decision to Hospitalize by Provider. jr8 17:45 Admitted to Tele accompanied by tech, via wheelchair, room 425, with chart, Report sv called to Phil CHIU 17:45 Condition: stable 17:45 Instructed on the need for admit. 18:04 Patient left the ED. sg Signatures: Dispatcher [employer] Liyah Celis RN RN sv Gay, Steven RN Taniya Gillespie Maria ms Smirch, Shelby, RN RN ss Woodley, Crystal cw1 Eliu Hampton PA PA jr8 Corrections: (The following items were deleted from the chart) 14:46 14:00 GCS: 15, ss ss 14:46 14:00 BP 107 / 73; Pulse 76bpm; Resp 18bpm; Pulse Ox 97%; ss ss
[2017-08-13] MEDS ORDERED: ONDANSETRON 4 MG/2 ML VIAL IV PRN (16:44)
[2017-08-13] MEDS ORDERED: ACETAMINOPHEN 500 MG TAB PO PRN (16:44)
[2017-08-13 17:01] LABS: Urine Blood NEGATIVE (NEG); Urine Glucose TRACE (NEG); Urine Protein NEGATIVE (NEG); Urine Specific Gravity 1.005 (1.005-1.030); Urine pH 5.5 (5.0-7.0)
[2017-08-13] MEDS ORDERED: GLUCAGON 1 MG/VIAL IM PRN (17:11)
[2017-08-13] MEDS ORDERED: D50W 25 GM/50 ML SYRINGE IV PRN (17:11)
--- NOTE | 2017-08-13 18:25 | EKG ---
Test Date: 2017-08-13 Test Time: 16:02:24 Armature Inspector: MEASUREMENT RESULTS: Intervals: Rate: 86 MA: 146 QRSD: 80 QT: 364 QTc: 435 [place]: P: 24 MA: 146 QRS: 36 T: 42 INTERPRETIVE STATEMENTS: Normal sinus rhythm Normal ECG Compared to ECG 08/10/2017 23:08:34 No significant changes Electronically Signed On 08-13-17 18:25:04 CDT by Ariel Vu
[2017-08-13] MEDS: NA CHLORIDE 0.9% 1,000 ML IV SCH (18:37)
[2017-08-13] MEDS: HYDROCODONE/APAP 7.5/325 MG TAB PO PRN (18:53)
--- NOTE | 2017-08-13 19:22 | RAD REPORT ---
EXAM DESCRIPTION: JU - CP - 08/13/2017 7:14 pm CLINICAL HISTORY: Syncope COMPARISON: None. TECHNIQUE: Real-time sonographic evaluation of both carotid systems was performed. Doppler interroga tion was performed with waveform tracing bilaterally. FINDINGS: Normal high resistance waveforms are noted in both external carotid arteries. The common c arotid arteries and internal carotid arteries show normal low resistance waveforms. No significant plaque formation is seen. Peak systolic and end diastolic velocity values and the ICA/ CCA ratios are in the non-hemodynamically significant range. Antegrade flow seen in both vertebral arteries. IMPRESSION: No significant atherosclerotic changes noted. No evidence of a hemodynamically significant stenosis.
[2017-08-13] MEDS: INSULIN -REGULAR HUMAN 50 UNIT/0.5 ML ML SQ SCH (21:00)
[2017-08-14] MEDS: HYDROCODONE/APAP 7.5/325 MG TAB PO PRN ×5 (00:40→20:41)
--- NOTE | 2017-08-14 01:09 | HP ---
Date of Admission: 08/13/2017 Chief Complaint: Status post fall, syncopal episode. Food Counselor: Phil Blanco M.D. for trauma. History Of Present Illness: The patient is a 37-year-old male with past medical history of SC 5 year s ago; diabetes mellitus type 2, non-insulin requiring; diabetic neuropathy, who was in his usual sta te of health until day of admission when the patient was helping his cousin on the roof and had sudde n onset of dizziness, felt like blacking out and had a syncopal episode. The patient fell from 8 fee t above ground. He was unconscious for approximately 5 minutes. The patient's cousin did not tell h im whether or not there is any seizure-type activity. The patient reports pain in his neck, back, wh ich is constant, moderate and progressive. He does report right eye vision being blurry, however, mejia s had previous surgery after trauma to that eye and has had blurry vision previously. The patient de nies any seizure history or history of previous syncopal episode. Denies any palpitations. Denies a ny alcohol use prior to this episode. He does state that he gets dizzy when he takes his gabapentin and he has been taking his medications regularly. The patient was brought into the ER via EMS. His workup revealed potassium of 3. White count was elevated at 11.5. CT trauma was done of cervical sp ine on CT head and chest, abdomen, pelvis did not show any acute fractures or acute findings. The yue dixon was then referred for admission. Dr. Blanco was consulted by the ER for trauma with loss of consciousness. When seen in the ER, the patient was in mild amount of pain, asking for food. Past Medical History: History of previous SC. The patient states that he has been told he has mild coronary artery disease, diabetes mellitus type 2, hgp-qvauvkg-[id number] diabetic neuropathy. Past Surgical History: Surgery on the right eye due to trauma. Allergies: TO FLEXERIL, TORADOL, AND IBUPROFEN. Medications: Reviewed. Social History: The patient smoked 3 packs per day for 6 years. Has been smoking half a pack for th e past year. Denies any alcohol use or illicit drug use. Family History: No history of premature coronary artery disease in the family. Review of Systems: An 11-point system reviewed, negative except as per HPI. Physical Examination: Vital Signs: Temperature 98.6, heart rate 113, respirations 20, blood pressure 144/93, O2 99% on lore m air. General: Awake, alert, oriented x3, in some mild distress due to pain, somewhat ill-appearing male. HEENT: Normocephalic, atraumatic. PERRLA. EOMI. Moist mucous membranes. Oropharynx is clear. Po or dentition. Conjunctiva is anicteric. Neck: Supple. No JVD. Trachea midline. CV: S1, S2. Regular rate and rhythm. Peripheral pulses are present bilaterally. No wheezing or st ridor. Gastrointestinal: Abdomen is soft, nontender, nondistended. Positive bowel sounds. No guarding or rigidity. No ecchymosis. Extremities: No clubbing, cyanosis, or edema. No calf tenderness. Musculoskeletal: Tenderness to palpation in the cervical, lumbar, and thoracic spine area. Range of motion is normal for upper and lower extremities. Neuro: Cranial nerves 2 through 12 intact grossly. No focal neurological deficit. Strength is 5/5 in bilateral upper and lower extremities. Sensation is decreased to light touch. Speech is normal. Skin: No rashes. Normal skin turgor. No ecchymosis or lacerations. Laboratory Data: WBC 11.5, H and H 14.7 and 43.6, platelets 406. Sodium 135, potassium 3, chloride 102, CO2 25, BUN 6, creatinine 0.8, glucose 170, calcium 8.4. Troponin pending. UA negative. CT of the head, spine, chest, pelvis shows no acute findings. CT head, no intracranial hemorrhage, hydroc ephalus, or extra-axial fluid collection. No areas of brain edema or midline shift. Paranasal sinus es, mastoids are clear. CT of cervical spine, no fracture or subluxation. CT chest, abdomen, and pe lvis with contrast shows negative for acute traumatic finding. Assessment: A 37-year-old male with: 1.Status post fall from 8 feet ladder with loss of consciousness. We will place on bedrest, PT eval uation. The patient had syncopal episode. 2.Syncope, unclear etiology, may be cardiogenic versus neurogenic. We will place on remote cardiac telemetry. We will obtain carotid ultrasound. We will also check orthostatic vital signs. 3.History of myocardial infarction, mild coronary artery disease, [place] heart without angina, stabl e. 4.Diabetes mellitus type 2, non-insulin requiring. We will continue on sliding scale insulin. 5.Gastrointestinal and deep venous thrombosis prophylaxis with PPI and SCDs. Plan: Admit the patient to Med-Surg, place as observation. DYLAN Voice ID: [id number]
[2017-08-14 01:14] LABS: Urine Appearance CLEAR; Urine Bilirubin NEGATIVE (NEG); Urine Blood NEGATIVE (NEG); Urine Color YELLOW; Urine Glucose NEGATIVE (NEG); Urine Protein NEGATIVE (NEG); Urine Specific Gravity >=1.030 (1.005-1.030)
[2017-08-14 01:18] LABS: Urine Microscopic Reflex NO UMIC
[2017-08-14] MEDS: NA CHLORIDE 0.9% 1,000 ML IV SCH ×4 (03:00→23:00)
--- NOTE | 2017-08-14 04:09 | CON ---
Date of Consultation: 08/13/2017 Reason For Service: Status post fall with the head concussion. History Of Present Illness: This is the case of a 37-year-old patient, who was working on an 8-foot tall ladder and then he fell. He said it was just an accident, although after that he does not remem dima anything from the accident. He just remember when he was falling. A family member just took him and called for medical attention. He does not recall the events. The patient was initially seen by the ER staff and surgical consult was called after having the history, understanding the head concus ashutosh and also the amnesia. Secondary survey shows just some mild abdominal pain. At the moment of t he evaluation, the patient has C-collar and backboard already removed by the ER physician. Allergies: FLEXERIL, TORADOL, IBUPROFEN. Medications: Metformin, gabapentin. Past Medical History: Includes ljf-pcjbsre-mbtiasdxh diabetes, apparently history of MS in the past, chronic pain. Past Surgical History: Eye surgery. Social History: He does not smoke. He does not drink alcohol. Review of Systems: Constitutional: He denies any fever. Respiratory: He denies any shortness of breath. Neuro: As per H and P. Abdomen: Just mild left lower abdominal pain, but no nausea, no vomiting, no melena, no hematochezia . Genitourinary: Denies any dysuria or hematuria. Physical Examination: General: The patient is awake and alert. HEENT: Pupils are equal and reactive. Anicteric. EOMs positive. No hyphema. No otorrhea. Tongue midline. Neck: No pinpoint tenderness. No step-off. Chest: Bilateral breath sounds. Heart: S1, S2. ABDOMEN: Soft and depressible. No guarding or rebound. No peritoneal signs. Pelvis: Stable. Back: No pinpoint tenderness. No step-off. Genitalia: Deferred. Extremities: Full range of motion x4. Good peripheral pulses, dorsalis pedis and radialis. Neuro: Cranial nerves 2 through 12 grossly within normal limits. GCS of 15. Rectal: Deferred. Laboratory Data: Blood work shows WBC count of 11.5, hemoglobin of 14.7, platelets of 406. Sodium i s 135, potassium 3.0, glucose 170. UA; blood and nitrite negative. Imaging: CAT scan of the head, C-spine, chest, abdomen, and pelvis, read per Dr. Mittal as negative fo r acute traumatic findings. Assessment: This is a 37-year-old patient with status post fall. He has no recollections of the fabián nt other than when he was falling. From the surgical standpoint, we do not see any evidence of any s urgical repair to be done tonight, but I agree with them and have to be in observation. Have to chec k the medical issues to see if the cause of his fall. It is unclear to me as I am trying to intervie w this patient if something related to medical issues was the cause of the fall and that may include also glucose issues. I will recommend this patient to be seen also by neurologist trying to help us and give us some more information about the etiology of his syncope if it is pre of post fall. We wi ll follow the patient with you, give more recommendations as the case develops. KONSTANTIN/JARRET Voice ID: [id number] Report ID: [id number]
[2017-08-14 04:49] LABS: Absolute Monocytes 0.7 K/uL (0.1-1.3); Absolute Neutrophil 3.8 K/uL (1.8-8.0); Basophils % 0.7 % (0-1.3); Eosinophils % 4.4 % (0-4.4); Hematocrit 35.2 % (39.6-49.0); MCH 27.1 pg (27.0-35.0); MCV 82.5 fL (80-100); MPV 7.2 fL (7.6-11.3); Monocytes % 8.4 % (3.3-12.3); RBC Red Blood Cell Count 4.26 M/uL (4.33-5.43)
[2017-08-14 05:35] LABS: BUN Blood Urea Nitrogen 8 mg/dL (6-20); Bicarbonate 27 mEq/L (21-31); Glucose Level 111 mg/dL (65-120); Sodium Level 141 mEq/L (135-145)
[2017-08-14] MEDS: INSULIN -REGULAR HUMAN 50 UNIT/0.5 ML ML SQ SCH ×4 (07:30→20:43)
--- NOTE | 2017-08-14 16:34 | ECHO ---
HEIGHT: 5 ft 10 in WEIGHT: 180 lb 0 oz DATE OF STUDY: 08/14/[address]: Deon Solomon MD 2-DIMENSIONAL: YES M.MODE: YES DOPPLER: YES COLOR FLOW: YES TDS: PORTABLE: DEFINITY: BUBBLE STUDY: DIAGNOSIS: SYNCOPE CARDIAC HISTORY: CATHERIZATION: NO SURGERY: NO PROSTHETIC VALVE: NO PACEMAKER: NO MEASUREMENTS (cm) DIASTOLIC (NORMALS) SYSTOLIC (NORMALS) IVSd 1.0 (0.6-1.2) LA Diam 3.8 (1.9-4.0) LVEF 55% LVIDd 4.8 (3.5-5.7) LVIDs 3.4 (2.0-3.5) %FS 29% LVPWd 1.1 (0.6-1.2) Ao Diam 3.5 (2.0-3.7) 2 DIMENSIONAL ASSESSMENT: RIGHT ATRIUM: NORMAL LEFT ATRIUM: NORMAL RIGHT VENTRICLE: NORMAL LEFT VENTRICLE: NORMAL TRICUSPID VALVE: NORMAL MITRAL VALVE: NORMAL PULMONIC VALVE: NORMAL AORTIC VALVE: NORMAL PERICARDIAL EFFUSION: NONE AORTIC ROOT: NORMAL LEFT VENTRICULAR WALL MOTION: NORMAL DOPPLER/COLOR FLOW: NORMAL COMMENTS: NORMAL 2-DIMENSIONAL ECHOCARDIOGRAM WITH DOPPLER. TECHNOLOGIST: ARASELI GAMA
--- NOTE | 2017-08-14 17:25 | P.PN ---
Subjective Date of Service: 08/14/17 Chief Complaint: syncope the patient feels slightly better, but still headache. Physical Examination - Vital Signs Temperature: 98.4 F Blood Pressure: 127/73 Pulse: 89 Respirations: 18 Pulse Ox (%): 98 - Physical Exam General: Alert, In no apparent distress HEENT: Atraumatic, PERRLA, EOMI Neck: Supple, JVD not distended Respiratory: Clear to auscultation bilaterally, Normal air movement Cardiovascular: Regular rate/rhythm, Normal S1 S2 Gastrointestinal: Normal bowel sounds, No tenderness Musculoskeletal: No tenderness Integumentary: No rashes Neurological: Normal speech, Normal tone, Normal affect - Studies Medications List Reviewed: Yes Assessment And Plan - Current Problems (Diagnosis) (1) Syncope Onset Date: 08/14/17 Current Visit: Yes Status: Acute Qualifiers: Syncope type: unspecified Qualified Code(s): R55 - Syncope and collapse (2) Chronic pain syndrome Current Visit: No Status: Acute (3) Diabetes mellitus Current Visit: No Status: Acute Qualifiers: Diabetes mellitus type: type 2 Diabetes mellitus penitentiary insulin use: without penitentiary use Diabetes mellitus complication status: with unspecified complications Qualified Code(s): E11.8 - Type 2 diabetes mellitus with unspecified complications - Plan #1 Syncope: still unclear etiology. CT head negative, carotid doppler US report no significant stenosis, ECHO shows normal LV function with EF 55% without WMA, no significant valvulopathy. Pending evaluation by Dr Giles. #2 trauma: F/U by Dr Blanco. - Code Status/Comfort Care Code Status Assessed: Yes Code Status: Full Code
--- NOTE | 2017-08-14 23:42 | CON ---
Reason For Consultation: Consultation called because of syncope. History Of Present Illness: Mr. Guallpa is a 37-year-old right-handed patient with multiple medical problems including a reported myocardial infarction that was mild 5 years ago, kxk-guynwfi-s ependent diabetes mellitus, and diabetic neuropathy, who comes in after he passed out, fell from a la dder. The patient was about 8 feet in the air. He was on a ladder helping his cousin with roof repa ir when he suddenly felt dizzy, noted tunneling of vision, then lost consciousness. He fell down fro m the ladder and his cousin, who witnessed the event, denied any seizure-like activity, but the patie nt remained unresponsive and unconscious for about 5 minutes. He was brought into [facility], where his head CT scan and trauma series including cervical, abdomen, chest, and pelvis CT scans s howed no acute fractures or abnormalities. He had no intracranial hemorrhage or skull fracture. The patient does admit that in the past he has had episodes of dizziness, which may occur suddenly, b ut denies any shortness of breath or chest pounding or palpitations prior to those episodes, and naeem es any prior ho loss of consciousness or known seizures or stroke. Since being hospitalized, the patient denies any additional episodes and has not had any documented b y staff. Past Medical History: As indicated above. Past Surgical History: The patient has a history of trauma to the right eye, which was treated surgi bella. Allergies: FLEXERIL, IBUPROFEN, TORADOL. Social History: The patient smoked up to 3 packs of cigarettes per day for 6-7 years and now smokes half a pack of cigarettes daily. He denies using illegal drugs or alcohol, marijuana or Spice or K2. Family History: The patient said he is actually adopted and does not know his family history. Current Medications: Extra-strength Tylenol, [place] 7.5/325 every 4 hours as needed, Zofran 4 mg ever y 4 hours as needed. Review of Systems: Mr. Guallpa denies any recent fevers, chills, nausea, vomiting, myalgias, arthralgias, headache, weigh t change, rash, psychiatric complaints, gastrointestinal or genitourinary complaints. Denies any rafael matological issues. Physical Examination: Vital Signs: Blood pressure 127/73, pulse 89, respiratory rate 18, temperature 98.4, oxygen saturati on 98% on room air, height 5 feet 10 inches, weight 180 pounds, BMI 25.8. General: Mr. Guallpa is resting comfortably in bed. He is in no acute distress. HEENT: He is normocephalic and atraumatic. His sclerae are anicteric. Oropharynx is pink and moist . Neck: Supple. Chest: Clear. Heart: Regular. Extremities: Show no clubbing, cyanosis, or edema. Neurologic: He is alert and oriented to person, place, time, and situation. He follows all commands appropriately. Cranial nerve evaluation revealed no deficits on 2 through 12. Motor Examination: He has full strength in the upper and lower extremities proximally and distally. Sensory Examination : He has a mild stocking and glove loss to light touch and temperature in the legs and arms. Reflex es are 1+ in the upper and lower extremities bilaterally. Coordination intact in the upper and lower extremities. With gait, he did become lightheaded on ambulation; however, he has no gait abnormalit ies. Laboratory Studies: White blood cell count 7.8 with a normal differential, hemoglobin 11.6, hematocr it 35.2, platelets 313. Chemistries: Sodium 141, potassium 4, chloride 111, carbon dioxide 27, BUN 8, creatinine 0.65, glucose 111, ranging up to 178; calcium 7.8. Urinalysis is normal. His carotid artery ultrasound showed no evidence of hemodynamically significant stenosis and no significant ather osclerotic disease. His echocardiogram shows an ejection fraction of 55% and is a normal study. His electrocardiogram shows normal sinus rhythm and is a normal study. Assessment: Mr. Guallpa is a 37-year-old patient with uncharacterized syncopal episodes with the jyotsna ent's prior history of myocardial infarction, it is reportedly unclear if he was fully evaluated with cardiac catheterization. However, his current workup is unremarkable, at least his cardiac workup. His head CT scan showed no acute ischemic or hemorrhagic change. His neurological examination is no rmal. Plan: 1.The patient should have event characterization by ambulatory-video EEG monitoring after discharge. 2.He is instructed to take aspirin 81 mg daily. 3.He is instructed to maintain an event diary. 4.He may be discharged once he ambulates without difficulty and follow up in Dr. Israel's clinic i n 2 weeks for continued evaluation neurologically as indicated. ABISAI/JARRET Voice ID: [id number] Report ID: [id number]
[2017-08-15] MEDS: HYDROCODONE/APAP 7.5/325 MG TAB PO PRN ×2 (02:42→08:57)
[2017-08-15] MEDS: NA CHLORIDE 0.9% 1,000 ML IV SCH ×2 (02:46→08:57)
[2017-08-15] MEDS: INSULIN -REGULAR HUMAN 50 UNIT/0.5 ML ML SQ SCH (07:30)
--- NOTE | 2017-08-15 12:21 | P.DS ---
Admission Date: 08/13/17 Discharge Date: 08/15/17 Disposition: ROUTINE DISCHARGE Discharge Condition: GOOD Reason for Admission: syncope - Problems (1) Syncope Onset Date: 08/14/17 Current Visit: Yes Status: Acute Qualifiers: Syncope type: unspecified Qualified Code(s): R55 - Syncope and collapse (2) Chronic pain syndrome Current Visit: No Status: Acute (3) Diabetes mellitus Current Visit: No Status: Acute Qualifiers: Diabetes mellitus type: type 2 Diabetes mellitus intermediate card tender insulin use: without long-term use Diabetes mellitus complication status: with unspecified complications Qualified Code(s): E11.8 - Type 2 diabetes mellitus with unspecified complications Brief History of Present Illness: By Dr Dinero The patient is a 37-year-old male with past medical history of [place] 5 years ago; diabetes mellitus type 2, non-insulin requiring; diabetic neuropathy, who was in his usual state of health until day of admission when the patient was helping his cousin on the roof and had sudden onset of dizziness, felt like blacking out and had a syncopal episode. The patient fell from 8 feet above ground. He was unconscious for approximately 5 minutes. The patient's cousin did not tell him whether or not there is any seizure-type activity. The patient reports pain in his neck, back, which is constant, moderate and progressive. He does report right eye vision being blurry, however, has had previous surgery after trauma to that eye and has had blurry vision previously. The patient denies any seizure history or history of previous syncopal episode. Denies any palpitations. Denies any alcohol use prior to this episode. He does state that he gets dizzy when he takes his gabapentin and he has been taking his medications regularly. The patient was brought into the ER via EMS. His workup revealed potassium of 3. White count was elevated at 11.5. CT trauma was done of cervical spine on CT head and chest, abdomen, pelvis did not show any acute fractures or acute findings. The patient was then referred for admission. Dr. Blanco was consulted by the ER for trauma with loss of consciousness. When seen in the ER, the patient was in mild amount of pain, asking for food. Hospital Course: During his stay the patient was under continuous cardiac technician. There were not arrhythmias detected. Carotid doppler US showed no significant stenosis. ECHO report normal LV function without valvulopathy. The the patient was evaluated by Dr Israel who recommended to discharge the patient and do an EEG as outpatient, also continue on ASA 81 mg daily. At this point the patient is clinically and hemodynamically stable to be discharged home. F/U with Dr Israel in 1 week. Vital Signs/Physical Exam: Temp Pulse Resp BP Pulse Ox 98.4 F 61 16 133/71 99 08/15/17 12:00 08/15/17 12:00 08/15/17 12:00 08/15/17 12:00 08/15/17 12:00 General: Alert, In no apparent distress HEENT: Atraumatic, PERRLA, EOMI Neck: Supple, JVD not distended Respiratory: Clear to auscultation bilaterally, Normal air movement Cardiovascular: Regular rate/rhythm, Normal S1 S2 Gastrointestinal: Normal bowel sounds, No tenderness Musculoskeletal: No tenderness Integumentary: No rashes Neurological: Normal speech, Normal tone, Normal affect Laboratory Data at Discharge: WBC 7.8 K/uL (4.3-10.9) D 08/14/17 04:22 Hgb 11.6 g/dL (13.6-17.9) L D 08/14/17 04:22 Hct 35.2 % (39.6-49.0) L D 08/14/17 04:22 Plt Count 313 K/uL (152-406) D 08/14/17 04:22 Sodium 141 mEq/L (135-145) 08/14/17 04:22 Potassium 4.0 mEq/L (3.6-5.0) 08/14/17 04:22 BUN 8 mg/dL (6-20) 08/14/17 04:22 Creatinine 0.65 mg/dL (0.61-1.24) 08/14/17 04:22 Glucose 111 mg/dL (65-120) 08/14/17 04:22 Home Medications: Gabapentin [Neurontin] 300 mg PO TID 08/13/17 Metformin HCl [Glucophage*] 1,000 mg PO BIDWM 08/13/17 Aspirin [Aspirin EC 81 MG] 81 mg PO DAILY #30 tablet. 08/15/17 Codeine/APAP [Tylenol W/Codeine #3 tab] 1 tab PO Q6HP PRN #12 tab 08/15/17 New Medications: Aspirin [Aspirin EC 81 MG] 81 mg PO DAILY #30 tablet. Codeine/APAP [Tylenol W/Codeine #3 tab] 1 tab PO Q6HP PRN #12 tab PRN Reason: Pain Diet: ADA Activity: Fall precautions Followup: Navin Israel MD [ASSOCIATE-ACTIVE - CAN ADMIT] - Time spent managing pt's care (in minutes): 45
--- NOTE | 2017-08-15 13:26 | P.PN ---
Subjective Date of Service: 08/14/17 Chief Complaint: TRauma, s/p fall, syncope Subjective: Tolerating diet, Improving Review of Systems General: As per HPI Eyes: As per HPI ENT: As per HPI Respiratory: As per HPI, Unremarkable Cardiovascular: Unremarkable Gastrointestinal: Unremarkable Musculoskeletal: Unremarkable Neurological: Confusion, Other (amnestic to event) Physical Examination - Vital Signs Temperature: 98.4 F Blood Pressure: 133/71 Pulse: 61 Respirations: 16 Pulse Ox (%): 99 - Physical Exam General: Alert, In no apparent distress, Oriented x3, Cooperative HEENT: PERRLA, EOMI Neck: Supple Respiratory: Normal air movement Cardiovascular: No edema, Normal pulses, Normal S1 S2 Gastrointestinal: Soft and benign, No rebound, No guarding Musculoskeletal: No erythema, No tenderness, No warmth Integumentary: No rashes Neurological: Other (amnestic to event , headache) - Studies Medications List Reviewed: Yes Assessment And Plan - Plan diet neuro checks reccomend Neurology consult before discharge f/u office one week after discharge
== END 2017-08-15 13:45 | disposition home or self-care (01) ==
LOC: ER 11:15 → ERHOLD 16:30 → 4TH 17:45
PROVIDERS: ADMIT Family Medicine; ATTEND Family Medicine
DX: R55 Syncope and collapse (principal); S06.0X1A Concussion with loss of consciousness of 30 minutes or less, initial encounter; W11.XXXA Fall on and from ladder, initial encounter; Y92.007 Garden or yard of unspecified non-institutional (private) residence as the place of occurrence of the external cause; G89.4 Chronic pain syndrome; E11.9 Type 2 diabetes mellitus without complications; I25.2 Old myocardial infarction; F17.210 Nicotine dependence, cigarettes, uncomplicated
CPT/HCPCS: 36415; 70450; 71260; 72125; 74177; 80048; 81003; 82962; 84484; 85025; 86850; 86900; 86901; 93005; 93306; 93880; 94760; 96374; 96375; 97163; 99285; G0378; J2405; J3010; J7030; Q9967

== ENCOUNTER 2017-08-31 17:34 | Emergency (ER) | payer SELFPAY ==
--- OUTSIDE RECORDS SUMMARY | 2017-08-31 17:36 | XMS REPORT | Clinical Summary ---
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 dislocation. Joint spaces are maintained and there is no evidence of significant arthritis. Osseous mineralization is normal. [facility]-[id number] Procedure Note Interface, Radiology Results Incoming - 12/17/2016 12:53 AM CDT XR PELVIS 1 OR 2 VW CLINICAL INDICATION: JOINT PAIN HIP COMPARISON: None. IMPRESSION: There is no acute fracture or dislocation. Joint spaces are maintained and there is no evidence of significant arthritis. Osseous mineralization is normal. [facility]-[id number] XR Femur 2 Vw Left (12/17/2016 12:46 AM) Specimen Performing Laboratory [facility] [address] [place] [address] Narrative XR FEMUR 2 VW LEFT CLINICAL INDICATION:thigh pain after fall COMPARISON:None. IMPRESSION: There is no acute fracture or dislocation. Joint spaces are maintained and there is no evidence of significant arthritis. Osseous mineralization is normal. [facility]-[id number] Procedure Note Interface, Radiology Results Incoming - 12/17/2016 12:52 AM CDT XR FEMUR 2 VW LEFT CLINICAL INDICATION: thigh pain after fall COMPARISON: None. IMPRESSION: There is no acute fracture or dislocation. Joint spaces are maintained and there is no evidence of significant arthritis. Osseous mineralization is normal. [facility]-[id number] XR Knee 4+ Vw Left (12/17/2016 12:46 AM) Specimen Performing Laboratory [facility] [address] [place] [address] Narrative XR KNEE 4VW LEFT CLINICAL INDICATION:BONE PAINKNEE COMPARISON:None. IMPRESSION: There is no acute fracture or dislocation. There is no knee joint effusion. Joint spaces are maintained and there is no evidence of significant arthritis. Osseous mineralization is normal. [facility]-[id number] Procedure Note Interface, Radiology Results - 12/17/2016 12:51 AM CDT XR KNEE 4 VW LEFT CLINICAL INDICATION: BONE PAIN KNEE COMPARISON: None. IMPRESSION: There is no acute fracture or dislocation. There is no knee joint effusion. Joint spaces are maintained and there is no evidence of significant arthritis. Osseous mineralization is normal. [facility]-[id number] XR Shoulder 2+ Vw Left (12/08/2016 9:33 AM) Specimen Performing Laboratory [facility] [address] [place] [address] Narrative EXAMINATION:XR SHOULDER 2VW LEFT CLINICAL HISTORY:paininjury COMPARISON:None available at this time. IMPRESSION: 1. No fracture, malalignment, or osseous destructive lesion of the left shoulder. 2. Joint spaces are maintained. No significant degenerative changes. 3. Soft tissues are unremarkable. [facility]-[id number] Procedure Note Interface, Radiology Results Incoming - 12/08/2016 9:38 AM CDT EXAMINATION: XR SHOULDER 2 VW LEFT CLINICAL HISTORY: pain injury COMPARISON: None available at this time. IMPRESSION: 1. No fracture, malalignment, or osseous destructive lesion of the left shoulder. 2. Joint spaces are maintained. No significant degenerative changes. 3. Soft tissues are unremarkable. [facility]-[id number] Magnesium level (11/07/2016 6:20 PM) Component Value Ref Range Magnesium 1.9 1.6 - 2.6 mg/dL Specimen Performing Laboratory Plasma specimen [facility] DEPARTMENT OF PATHOLOGY AND GENOMIC MEDICINE [address] [place] [address] XR Knee 4+ Vw Right (11/04/2016 1:11 AM) Specimen Performing Laboratory [facility] [address] [place] [address] Narrative XR KNEE 4VW RIGHT CLINICAL INDICATION:BONE PAINKNEE COMPARISON:None. IMPRESSION: There is no acute fracture or dislocation. There is no knee joint effusion. Joint spaces are maintained and there is no evidence of significant arthritis. Osseous mineralization is normal. [facility]-[id number] Procedure Note Interface, Radiology Results Incoming - 11/04/2016 2:51 AM CDT XR KNEE 4 VW RIGHT CLINICAL INDICATION: BONE PAIN KNEE COMPARISON: None. IMPRESSION: There is no acute fracture or dislocation. There is no knee joint effusion. Joint spaces are maintained and there is no evidence of significant arthritis. Osseous mineralization is normal. [facility]-[id number] after 08/30/2016
--- OUTSIDE RECORDS SUMMARY | 2017-08-31 17:36 | XMS REPORT | Clinical Summary ---
:1980 Author Organization [facility] Address [address] [place] [address] Phone Care Team Providers Name Role Phone [...] vomiting type;Enteritis;Tobacco abuse 02/25/2017 Emergency Emergency Medicine Thomas Jennifer Acute foot pain, left MD Tiki (Primary [...] Right elbow pain DO (Primary Dx) after 08/30/2016 Social History Tobacco Use Types Packs/Day Years Used Date Current Every Day Smoker Cigarettes 1 Smokeless Tobacco: Never Used Alcohol Use Drinks/Week oz/Week Comments No Sex Assigned at Date Recorded Not on file Last Filed Vital Signs Vital Sign Reading Time Taken Blood Pressure 124/58 03/08/2017 9:16 AM PROTOTYPE SEWER Pulse 67 03/08/2017 9:15 AM PROTOTYPE SEWER Temperature 36.6 C (97.8 F) 03/08/2017 7:45 AM PROTOTYPE SEWER Respiratory Rate 18 03/08/2017 7:45 AM PROTOTYPE SEWER Oxygen Saturation 98% 03/08/2017 9:15 AM PROTOTYPE SEWER Inhaled Oxygen Concentration - - Weight 90.7 kg (200 lb) 03/08/2017 7:45 AM PROTOTYPE SEWER Height 177.8 cm (5' 10") 02/25/2017 8:16 AM CDT Body Mass Index 28.7 03/08/2017 7:45 AM PROTOTYPE SEWER Plan of Treatment Not on file Results [...] MD Report Verified Date/Time:03/08/2017 09:15:05 Reading Location: [address] Consult Reading Room Procedure Note Interface, External Ris In - 03/08/2017 9:17 AM PROTOTYPE SEWER FINAL REPORT CT abdomen and pelvis with [...] Report Verified Date/Time: 03/08/2017 09:15:05 Reading Location: [facility] C013X Ortho Consult Reading Room with platelet [...] Specimen Performing Laboratory Blood - Arm, Right [facility], [facility] [address] [place] [address] CBC with platelet count + automated diff (03/08/2017 8:00 AM)Only the most recent of2 resultswithin the time period is included. Specimen Performing Laboratory Blood Narrative The following orders were created for panel order CBC with platelet count + automated diff. Procedure Abnormality Status --------- ------ CBC with platelet count ...[[id number]]AbnormalFinal result Please view results for these tests on the individual orders. ALT (SGPT) (03/08/2017 8:00 AM) Component Value Ref Range ALT 21 5 - 50 U/L Specimen Performing Laboratory Blood - Arm, [facility], [facility] [place] [address] [place] [address] AST (SGOT) (03/08/2017 8:00 AM) Component Value Ref Range AST 11 5 - 40 U/L Specimen Performing Laboratory Blood - [facility], [facility], [facility], [facility] [address] [place] [address] Lipase (03/08/2017 8:00 AM) Component Value Ref Range Lipase 37 (L) 40 - 240 U/L Specimen Performing Laboratory Blood - Arm, [facility], [facility] [place], [facility] [address] [place] [address] Bilirubin, adult total (03/08/2017 8:00 AM) Component Value Ref Range Total Bilirubin 0.3 0.1 - 1.2 mg/dL Specimen Performing Laboratory Blood - Arm, [facility], [facility] [place], [facility] [address] [place] [address] Basic Metabolic Panel (03/08/2017 8:00 AM) Component [...] PATIENTS. Specimen Performing Laboratory Blood - Arm, [facility], [facility] [address] [facility] [place] [facility] [place] [address] XR foot 3 views left (02/25/2017 8:32 [...] MD Report Verified Date/Time:02/25/2017 08:37:49 Reading Location: [address] Body Reading Room Procedure Note [...] Report Verified Date/Time: 02/25/2017 08:37:49 Reading Location: [facility] C013Y CT Body Reading Room ECG Interpretation [...] normal. ST segments normal. T waves normal. [place] is normal. Left sided lead use: Posterior [...] Performing Laboratory Urine - Urine, Clean Catch [facility] [address] [place] [address] Narrative DRUGCUTOFF CONC. Cocaine 300 ng/mL Ovmuegcsfdv29 ng/mL Vgznvjzmxhjvpb372 ng/mL Barbiturate 200 ng/mL Wyktiuisxvgmi92 ng/mL Qhneth585 ng/mL Methadone 300 ng/mL Amphetamine/ 1000 ng/mL Methamphetamine This assay provides an unconfirmed qualitative test result for the clinical management of patients in emergency situations. Chain of custody not maintained. Some tftj-uwu-bpuhnep medications, as well as adulterants, may cause inaccurate results. Clinical correlation should be applied. A more comprehensive drug screen or confirmation of a detected drug may be performed upon request. POC-Glucose meter (01/19/2017 8:04 PM)Only the most recent of2 resultswithin the time period is included. Component Value Ref Range POC-Glucose Meter 241 (H)Comment: TESTED AT [facility] [address] [facility] 70 - 110 mg/dL [facility] [address] Specimen Performing Laboratory Blood [address] [address] Blood gas, venous (01/19/2017 7:55 PM) Component [...] Specimen Performing Laboratory Blood - Arm, Right [facility] [address] [place] [address] Ketones, blood (01/19/2017 7:55 PM) Component Value Ref Range Ketones, Blood 0.0 <0.4 mmol/L Specimen Performing Laboratory Blood - Arm, Right [facility] [address] [place] [address] XR chest 1 view portable / bedside (01/19/2017 7:51 PM) Specimen Performing Laboratory GE RIS Narrative FINAL REPORT Clinical History: cp Comparison Study: None Findings:The heart and lungs are within normal limits.The pleural spaces are clear.No significant bony or soft tissue abnormalities are seen. Impression: No active cardiopulmonary disease. Signed: Carlos Severino MD Report Verified Date/Time:01/19/2017 19:59:25 Reading Location: [address] Consult Reading Room Procedure Note Interface, External Ris In - 01/19/2017 8:01 PM CDT FINAL REPORT Clinical History: cp Comparison Study: None Findings: The heart and lungs are within normal limits. The pleural spaces are clear. No significant bony or soft tissue abnormalities are seen. Impression: No active cardiopulmonary disease. Signed: Carlos Severino MD Report Verified Date/Time: 01/19/2017 19:59:25 Reading Location: [address] Consult Reading Room Urinalysis w/Microscopic (01/19/2017 7:36 PM)Only the most recent of2 resultswithin the time period is included. Component Value Ref Range Color, UA Light Yellow Clarity, UA Clear Specific [place], UA 1.016 1.001 - 1.035 pH, UA [...] Performing Laboratory Urine - Urine, Clean Catch [facility] [address] [place] [address] Troponin I (01/19/2017 7:33 PM) Component Value Ref Range Troponin I <0.01 0.00 - 0.15 ng/mL Specimen Performing Laboratory Blood - Line, [facility] [address] [place] [address] Narrative Troponin I (TnI) levels must be [...] FEU Specimen Performing Laboratory Blood - Line, [facility] [address] [place] [address] Narrative Intended Use: The D-Dimer Assay can [...] pg/mL Specimen Performing Laboratory Blood - Line, [facility] [address] [place] [address] Creatine Kinase (CK), Total and MB (01/19/2017 7:33 PM) Component Value Ref Range Total CK 57 30 - 300 U/L CK-MB 0.6 0.0 - 4.9 ng/mL MB Relative Index 1.1 % Specimen Performing Laboratory Blood - Line, [facility] [address] [place] [address] Narrative CK-MB Reference Range: <5 Normal 5-10 [...] Specimen Performing Laboratory Blood - Line, Venous [facility] [address] [place] [address] ECG 12 lead (01/19/2017 6:40 PM) Specimen Performing Laboratory [employer] Narrative Ventricular Rate 95 BPM Atrial Rate 95 BPM P-R Interval 132 ms QRS Duration 72 ms Q-T Interval 334 ms QTC Calculation(Bazett) 419 ms P [place] 69 degrees R [place] 49 degrees T [place] 52 degrees Normal sinus rhythm with sinus arrhythmia Nonspecific ST and T wave abnormality Abnormal ECG No previous ECGs available Procedure Note Interface, External Ris In - 01/20/2017 12:01 PM CDT Ventricular Rate 95 BPM Atrial Rate 95 BPM P-R Interval 132 ms QRS Duration 72 ms Q-T Interval 334 ms QTC Calculation(Bazett) 419 ms P [place] 69 degrees R [place] 49 degrees T [place] 52 degrees Normal sinus rhythm with sinus arrhythmia Nonspecific ST and T wave abnormality Abnormal ECG No previous ECGs available CT spine cervical without IV contrast (01/15/2017 5:49 PM) Specimen Performing Laboratory [employer] RIS Narrative FINAL REPORT EXAMINATION: CERVICAL SPINE [...] MD Report Verified Date/Time:01/15/2017 18:25:26 Reading Location: [address] Reading Room Procedure Note Interface, [...] Report Verified Date/Time: 01/15/2017 18:25:26 Reading Location: [address] Reading Room brain without IV contrast (01/15/2017 5:49 PM) Specimen Performing Laboratory [employer] RIS Narrative FINAL REPORT EXAMINATIONNONCONTRAST HEAD CT SCAN [...] MD Report Verified Date/Time:01/15/2017 18:14:13 Reading Location: [address] Reading Room Procedure Note Interface, [...] Report Verified Date/Time: 01/15/2017 18:14:13 Reading Location: [address] Reading Room spine lumbar 2 [...] MD Report Verified Date/Time:12/12/2016 23:13:07 Reading Location: [address] Reading Room Procedure Note Interface, [...] Report Verified Date/Time: 12/12/2016 23:13:07 Reading Location: [address] Reading Room spine thoracic 2 [...] MD Report Verified Date/Time:12/12/2016 23:13:07 Reading Location: [address] Reading Room Procedure Note Interface, [...] Report Verified Date/Time: 12/12/2016 23:13:07 Reading Location: [address] Reading Room elbow 3 views min right (09/25/2016 3:35 PM) Specimen Performing Laboratory GE RIS Impressions : No radiographic abnormalities are visualized in the right elbow. Signed: Kajal Dahl MD Report Verified Date/Time:09/25/2016 15:42:48 Reading Location: [facility] [address] [place] [address] Reading Room Narrative FINAL REPORT RIGHT ELBOW [...] Report Verified Date/Time: 09/25/2016 15:42:48 Reading Location: [facility] B1 C013T Transitional Reading Room after 08/30/2016
--- OUTSIDE RECORDS SUMMARY | 2017-08-31 17:38 | XMS REPORT ---
:1980 [facility] Address [address] [place] [address] Dr. D[address] [place] [id number] Care Team Providers Name Role Phone DR ROCAEL BETH Unavailable Unavailable HERBER, DR EASTON Unavailable Unavailable USMAN WAYNE Unavailable Unavailable DR EBONY HARO Unavailable Unavailable PHOEBE, DR CUADRA Unavailable Unavailable HOLGER MONROE Unavailable Unavailable BEATRIZ, DR GARIBAY Unavailable Unavailable JOAN MCCRAY Unavailable Unavailable KIRIT, DR GALVAN Unavailable Unavailable ALEXA VALDOVINOS Unavailable Unavailable DR JUANCHO GARZA Unavailable Unavailable ODELL, DR HILL Unavailable Unavailable Problems This patient has no known problems. Allergies, Adverse Reactions, Alerts This patient has no known allergies or adverse reactions. Medications This patient has no known medications. Encounters Start End Encounter Admission Attending Care Care Encounter Date/Time Date/Time Type Type Clinicians Facility Department ID 2017-08-19 2017-08-19 Emergency E ROCAEL BETH [facility] [id number] 15:33:00 18:45:00 2017-08-11 2017-08-11 Emergency E JEMMA CRAVEN [facility] [id number] 11:55:00 13:29:00 2017-04-27 2017-04-27 Emergency E ROSANA [facility] [id number] 08:54:00 10:01:00 USMAN 2017-04-20 2017-04-20 Outpatient E TAHIR [facility] [id number] 11:00:00 14:40:00 EBONY 2016-12-12 2016-12-12 Emergency E SHEIKH [facility] [id number] 20:40:00 21:38:00 WASIM Results Test Description Test Time Test Comments Text Results Atomic Results Result Comments CT STONE PROTOCOL 2017-08-19 17:07:[address] of the abdomen STUDY and pelvisClinical indication: Right flank paincomparison: 02/25/2017Location R 16Spiral CT is obtained from lung bases to inferior pubic rami with 3 mm axial,coronal and sagittal reconstructions provided.One or more of the following dose reduction techniques were used: Automatedexposure control, adjustment of the MA and/or kV according to patient size,and/or utilization of iterative reconstruction technique. DLP 997 mGy*cm.Three 5-mm pulmonary nodules at the left lung base are unchanged since theexamination of 6 months ago. Follow-up in one year is recommended to documenttheir stability.Heart is normal in size. Great vessels are normal in caliber.Coarse-appearing hepatic calcification is again noted in the right lobe of theliver, unchanged.Gallbladder, stomach, pancreas, spleen, kidneys and adrenal glands areunremarkable.No renal or ureteral calcifications are identified. There is no evidence ofhydroureter. The urinary bladder is unremarkable. Prostate is normal in size.It contains calcifications.The unopacified bowel is unremarkable. Appendix contains increased densitywhich may represent inspissated mucus. It is normal in caliber. Pelvic calcifications represent phleboliths. There is no ascites or significantadenopathy.The bony structures are unremarkable.Impression:1. 3 subcentimeter left lower lobe pulmonary nodules which may representgranulomas. Follow-up may be appropriate in one year.2. No renal or ureteral calculi or hydronephrosis.3. Benign-appearing hepatic calcification, unchanged. AMYLASE AND LIPASE 2017-08-19 16:53:00 Test Item Value Reference Range Comments AMYLASE (test code=10A) 28 U/L 28-100 LIPASE (test code=60A) 90 IU/L 73-393 COMPREHENSIVE METABOLIC [id number] 16:53:00 Test Item Value Reference Range Comments GLUCOSE (test code=06D) 144 mg/dL 75-100 SODIUM (test code=01A) 138 mmol/L 136-145 POTASSIUM (test code=01B) 3.5 mmol/L 3.6-5.1 CHLORIDE (test code=04A) 107 mmol/L 98-107 CO2 (test code=02A) 23 mmol/L 22-32 ANION GAP (test code=ANG) 11.5 mmol/L BUN (test code=05D) 5 mg/dL 7-18 CREATININE (test code=03E) 0.7 mg/dL 0.7-1.3 BUN/CREA (test code=BCR) 8 12-20 CALCIUM (test code=09D) 8.3 mg/dL 8.3-9.5 BILI TOTAL (test code=11A) 0.2 mg/dL 0.2-1.0 PROTEIN (test code=07D) 6.6 g/dL 6.4-8.2 ALBUMIN (test code=08D) 3.1 g/dL 3.5-4.8 GLOBULIN (test code=GLB) 3.5 g/dL 1.5-3.8 ALB/GLOB (test code=AGRR) 0.9 1.0-2.6 ALK PHOS (test code=35A) 95 IU/L 42-121 AST (test code=30A) 9 IU/L <=42 ALT (test code=31A) 15 IU/L <=78 DRUGS OF [id number] 16:50:00 Test Item Value Reference Range Comments DRUG SCRN (test code=HDOA) URINE DRUG SCREEN This is an unconfirmed screening result and should not be used for non-medical purposes CANNABINOD (test code=88C) Negative NEGATIVE AMPHETAMINE (test code=84A) Negative NEGATIVE BENZODIAZP (test code=86A) POSITIVE NEGATIVE BARBITURAT (test code=85A) Negative NEGATIVE OPIATES (test code=92B) POSITIVE NEGATIVE COCAINE (test code=87A) Negative NEGATIVE PHENCYCLID (test code=66A) Negative NEGATIVE METHADONE (test code=64A) Negative NEGATIVE DOAH (test code=DOAH) URINE DRUG SCREEN Cut-off values are as follows: ---- Cannabinoids 50 ng/mL Cocaine 300 ng/mL Amphetamines 1000 ng/mL Phencyclidine 25 ng/mL Benzodiazepines 200 ng.mL Methadone 300 ng/mL Barbiturates 200 ng/mL Opiates 2000 ng/mL PRO TIME AND [id number] 16:45:00 Test Item Value Reference Range Comments PT (test code=TT) 10.5 s 9.8-13.6 INR (test code=INR) 0.9 INRH (test code=INRH) SUGGESTED THERAPEUTIC RANGE FOR INR: 2.5 - 3.5 For Patients with Prosthetic Valves or Patients with recurrent Thromboembolic Events 2.0 - 3.0 For Most Other Applications PTT (test code=PTT) 28.7 s 20.2-38.0 PTTH (test code=PTTH) To monitor the effectiveness of heparin, we offer the Anti-Xa (Heparin Assay). It can be used for either unfractionated or LMW Heparin. Order Code is ANTI-XA [id number] 16:39:00 Test Item Value Reference Range Comments COLOR (test code=COLU) YELLOW YELLOW CLARITY (test code=CLA) CLEAR CLEAR GLUCOSE UR (test code=UA GLUCOSE) NEGATIVE NEGATIVE BILI UR (test code=BILE) NEGATIVE NEGATIVE KETONES UR (test code=ULISSES) NEGATIVE NEGATIVE SP GRAVITY (test code=SPGR) 1.011 1.005-1.030 PH UR (test code=PH) 6.5 4.5-8.0 PROTEIN UR (test code=PU) NEGATIVE NEGATIVE UROBIL UR (test code=UROQ) 0.2 EU/dL 0.2-1.0 NITRITE UR (test code=NITRITE) NEGATIVE NEGATIVE BLOOD UR (test code=UA BLOOD) NEGATIVE NEGATIVE LEUK ES UR (test code=LEUK) NEGATIVE NEGATIVE CBC (INCLUDES AUTOMATED DIFFERENTIAL)2017-08-19 16:35:00 Test Item Value Reference Range Comments WBC (test code=WBC) 8.8 10\S\3/uL 4.5-11.0 RBC (test code=RBC) 4.89 10\S\6/uL 4.30-5.70 HGB (test code=HBG) 13.4 g/dL 14.0-18.0 HCT (test code=HCT) 40.8 % 35.0-46.0 MCV (test code=MCV) 83.4 fL 80.0-94.0 MCH (test code=MCH) 27.4 pg 27.0-31.0 MCHC (test code=MCHC) 32.8 g/dL 32.0-36.0 RDW (test code=RDW) 14.5 % 11.5-14.5 PLT (test code=PLT) 354 10\S\3/uL 130-400 MPV (test code=MPV) 8.7 fL 9.4-12.4 NEUTROP # (test code=NE#) 5.3 10\S\3/uL 2.0-8.0 LYMPH # (test code=LY#) 2.5 10\S\3/uL 1.2-4.0 MONOCYTE # (test code=MO#) 0.7 10\S\3/uL 0.0-1.1 EOSINOPH # (test code=EO#) 0.3 10\S\3/uL 0.0-0.7 BASOPHIL # (test code=BA#) 0.1 10\S\3/uL 0.0-0.3 IG # (test code=IG#) 0.01 10\S\3/uL 0.00-0.06 NRBC # (test code=NRBC#) 0.00 10\S\3/uL 0.00-0.01 NEUTROPH % (test code=NE%) 60.3 % 35.0-73.0 LYMPH % (test code=LY%) 27.8 % 20.0-55.0 MONO % (test code=MO%) 7.4 % 2.5-10.0 EOSINOPH % (test code=EO%) 3.6 % 0.0-5.0 BASOPHIL % (test code=BA%) 0.8 % 0.0-2.0 IG % (test code=IG%) 0.1 % 0.0-0.8 NRBC% (test code=NRBC%) 0.0 % 0.0-0.2 MANDIFF (test code=MDIFF) NO NO RBC MORPH (test code=RBCMOR) NORMAL XR SPINE CERVICAL [id number] 13:05:14Cervical spine, 6 viewsLocation code: X1Nohbnhjy history: M54.2: CERVICALGIAComments: AP, oblique, open mouth odontoid and lateral views of the cervicalspine demonstrate no displaced fracture or malalignment. Intervertebral discspaces are maintained. The oblique projections demonstrate no significantforaminal narrowing. The soft tissues are unremarkable. Impression: No acute abnormality.XR FOOT LEFT 1 OR 2 [id number] 09:35:56EXAMINATION: XR ANKLE LEFT 2 VIEW, XR FOOT LEFT 1 OR 2 VIEW.LOCATION : D4.HISTORY: Pain, stepped wrong.COMPARISON: None.FINDINGS/IMPRESSION:Two views of left ankle demonstrates no soft tissues swelling over medial norlateral malleolus. No radiographic evidence for acute osseous abnormality.Articular spaces are well-maintained. Posterior calcaneal spurring.Two views of left foot demonstrates no dorsal soft tissue swelling. Noradiographic evidence of acute osseous abnormality. Articular spaces are wellmaintained.XR ANKLE LEFT 2 [id number] 09:35:56EXAMINATION: XR ANKLE LEFT 2 VIEW, XR FOOT LEFT 1 OR 2 VIEW.LOCATION: D4.HISTORY: Pain, stepped wrong.COMPARISON: None.FINDINGS/IMPRESSION:Two views of left ankle demonstrates no soft tissues swelling over medial norlateral malleolus. No radiographic evidence for acute osseous abnormality.Articular spaces are well-maintained. Posterior calcaneal spurring.Two views of left foot demonstrates no dorsal soft tissue swelling. Noradiographic evidence of acute osseous abnormality. Articular spaces are wellmaintained.MRA NECK W & WO [id number] 14:42 :31MRA OF THE CAROTIDS WITHOUT CONTRASTHISTORY: Near syncopal episodeTECHNIQUE: 3-Dtime of [...] stenosis demonstrated within bilateral common or internalcarotid arteries.MRA HEAD W/O [id number] 14: 28:18MRA OF THE [place] OF [place] WITHOUT CONTRASTHISTORY: Near syncopal episodeTECHNIQUE: 3-Dtime of flight source images were reformatted into multiple 3-Dsequences. Stenosis estimates (diameter reduction) is based on end vesselluminal diameter in accordance with NASCET criteria. FINDINGS:Bilateral distal internal carotid arteries demonstrate no evidence ofsignificant stenosis. No aneurysmal dilatationis seen. Bilateral M1, M2, A1and A2 segments are unremarkable. The A-comm is patent.Left vertebral artery is dominate. Bilateral PICA, AICA, superior cerebellarand posterior cerebral arteries are unremarkable. The right posteriorcommunicating artery is robust.IMPRESSION:1. No significant stenosis.2. No aneurysmal dilatation.MRI BRAIN W/ AND W/O [id number] 13:51:27MRI brain with and without contrastLocation code: P6Zakfftfj history: Near syncopeTechnique: Multiplanar multisequence MR imaging [...] MRI of the brain with and without contrast.GLUCOMETER GLUCOSE- LAB USE [id number] 11:46:00 Test Item Value Reference Range Comments GLUCOMETER (test code=GMG) 161 mg/dL 70-100 CLEANED METERMeter ID: [id number]: [id number] WILFRED RAJU XR ELBOW LEFT COMPLETE 3 [id number] 10:38:15Right Elbow, 3 viewsLocation Code: V4TIGIXKFX HISTORY: Injury, fallCOMMENTS: AP, lateral, and oblique views of the right elbow demonstrate noacute fracture or malalignment. The soft tissues are unremarkable.IMPRESSION: No acute radiographic abnormality.XR CHEST 2 [id number] 10:38:03PA and lateral chest, 2 views.Location code: E1ORISRRBL HISTORY: Dizziness, fallCOMPARISON: NoneCOMMENTS: The lungs are clear and well inflated. The costophrenic angles aresharp. The cardiomediastinalsilhouette is unremarkable. The bones are intact.IMPRESSION: No acute abnormalityXR SHOULDER LEFT 3 [id number] 10:37:47Left shoulder, 3 viewsLocation Code: E6BMRHNOTK HISTORY: Fall, injury,COMMENTS: AP views in internaland external rotation along with a transscapularY view of the left shoulder were obtained. There is no acute fracture ormalalignment. The soft tissues are unremarkable.IMPRESSION: No acute abnormality.XR HUMERUS LEFT AP & amp; [id number] 10:37:28Left humerus, 2 viewsLocation Code: V7Nhpftmsm history: Trauma, injury, pain Comment: AP and lateralviews of the left humerus demonstrate no displacedfracture or malalignment. The soft tissues are unremarkable.Impression:No acute radiographic abnormality.[id number] 10: 36:00 Test Item Value Reference Range Comments D-DIMER (test code=DDI) <200 ng/mL D-DU 0-234 D-DIMER COMMENT (test *Level to rule out DVT or PE: code=DDCOM) <235 ng/mL D-DU* COMPREHENSIVE METABOLIC [id number] 10:36:00 Test Item Value Reference Range Comments [...] ALT (test code=31A) 18 IU/L <=78 CARDIAC [id number] 10:19:00 Test Item Value Reference Range Comments TROPONIN I (test code=A84) <0.015 ng/mL 0.000-0.045 CKMB (test code=A49) <1.0 ng/mL <=3.6 CPK (test code=32A) 38 IU/L 39-308 PRO TIME AND [id number] 10:12:00 Test Item Value Reference Range Comments [...] MORPH (test code=RBCMOR) NORMAL CT HEAD W/O [id number] 10:02:40CT brain without contrastLocation code: G2ACCYIVWM HISTORY: Dizziness, headache COMPARISON: None.TECHNIQUE: Routine unenhanced [...] Barbiturates 200 ng/mL Opiates 2000 ng/mL URINALYSIS *WW*2017-03-08 14:15:00 Test Item Value Reference Range Comments [...] code=60A) 81 IU/L 73-393 CBC (INCLUDES AUTOMATED DIFFERENTIAL)*[id number] 13:47:00 Test Item Value Reference Range Comments [...] NO RBC MORPH (test code=WRBCMOR) NORMAL CT, [id number] 09:15:00Reason for exam:->ABDOMINAL PAINReason for exam :->DIARRHEAReason [...] bowel enteritis as above. Signed: Bryce Pool MDReport Verified Date/Time: 03/08/2017 09:15:05 Reading Location: [facility] B1 C013X Ortho Consult Reading Room BASIC METABOLIC [id number] 08:21:00 Test Item Value Reference Range Comments SODIUM (BEAKER) (test 138 meq/L 135-148 pdqb=395) POTASSIUM (BEAKER) (test 3.9 meq/L 3.6-5.5 ewto=423) CHLORIDE (BEAKER) (test 108 meq/L 98-106 qdhw=136) CO2 (BEAKER) (test 24 meq/L 24-32 ehxb=088) BLOOD UREA NITROGEN 7 mg/dL 10-26 (BEAKER) (test hutq=531) CREATININE (BEAKER) (test 0.56 mg/dL 0.50-1.20 tope=379) GLUCOSE RANDOM (BEAKER) 138 mg/dL 70-110 (test mhsx=594) CALCIUM (BEAKER) (test 8.9 mg/dL 8.5-10.5 rsnd=358) EGFR (BEAKER) (test 163 mL/min/1.73 sq m ESTIMATED GFR IS NOT khes=9181) ACCURATE CREATININE CLEARANCE IN PREDICTING GLOMERULAR FILTRATION RATE. ESTIMATED GFR IS NOT APPLICABLE FOR DIALYSIS PATIENTS. AST (SGOT)2017-03-08 08:18:00 Test Item Value Reference Range Comments AST (SGOT) (BEAKER) (test vfjt=916) 11 U/L 5-40 ALT (SGPT)2017-03-08 08:18:00 Test Item Value Reference Range Comments ALT (SGPT) (BEAKER) (test wxhe=715) 21 U/L 5-50 [id number] 08:18:00 Test Item Value Reference Range Comments LIPASE (BEAKER) (test pwvf=324) 37 U/L 40-240 BILIRUBIN, ADULT [id number] 08:16:00 Test Item Value Reference Range Comments BILIRUBIN TOTAL (BEAKER) (test xbgi=922) 0.3 mg/dL 0.1-1.2 CBC W/PLT COUNT & AUTO [id number] 08:13:00 Test Item Value Reference Range Comments WHITE BLOOD CELL COUNT (BEAKER) (test 13.1 10e3/ L 4.0-10.0 kcbb=233) RED BLOOD CELL COUNT (BEAKER) (test pfcp=280) 4.85 10e6/ L 4.20-5.80 HEMOGLOBIN (BEAKER) (test mmfv=940) 13.9 g/dL 13.0-16.8 HEMATOCRIT (BEAKER) (test dgjd=300) 42.8 % 40.0-50.0 MEAN CORPUSCULAR VOLUME (BEAKER) (test 88.3 fL 82.0-98.0 ygld=869) MEAN CORPUSCULAR HEMOGLOBIN (BEAKER) (test 28.6 pg 27.0-33.0 fial=462) MEAN CORPUSCULAR HEMOGLOBIN CONC (BEAKER) 32.4 g/dL 32.0-36.0 (test aoyv=622) RED CELL DISTRIBUTION WIDTH (BEAKER) (test 13.2 % 10.3-14.2 zhor=630) PLATELET COUNT (BEAKER) (test qjru=198) 366 10e3/ L 150-430 MEAN PLATELET VOLUME (BEAKER) (test jqsa=556) 6.9 fL 6.5-10.5 NEUTROPHILS RELATIVE PERCENT (BEAKER) (test 77 % iqde=770) LYMPHOCYTES RELATIVE PERCENT (BEAKER) (test 12 % svog=990) MONOCYTES RELATIVE PERCENT (BEAKER) (test 6 % emdd=817) EOSINOPHILS RELATIVE PERCENT (BEAKER) (test 4 % uubk=303) BASOPHILS RELATIVE PERCENT (BEAKER) (test 1 % foke=600) NEUTROPHILS ABSOLUTE COUNT (BEAKER) (test 10.10 10e3/ L 1.80-8.00 lljl=079) LYMPHOCYTES ABSOLUTE COUNT (BEAKER) (test 1.61 10e3/ L 1.48-4.50 xebm=045) MONOCYTES ABSOLUTE COUNT (BEAKER) (test 0.83 10e3/ L 0.00-1.30 jbkk=935) EOSINOPHILS ABSOLUTE COUNT (BEAKER) (test 0.46 10e3/ L 0.00-0.50 udjv=583) BASOPHILS ABSOLUTE COUNT (BEAKER) (test 0.10 10e3/ L 0.00-0.20 hltl=569) RAD, FOOT, MIN 3 VIEWS, [id number] 08:37:00Reason for exam:->FOOT INJURYleft foot injury , [...] MDReport Verified Date/Time: 02/25/2017 08:37:49 Reading Location: [facility] C013Y CT Body Reading Room CT ABDOMEN AND PELVIS WITH CONTRAST*WW*2017-02-25 03:54:12CT ABDOMEN AND PELVIS WITH CONTRAST*WW* Location:[address] hours services are provided 02/25/2017 2:48 AMIndication:RLQ pain.Comparison: Not availableTechnique: Axial CT of the abdomen and pelvis followingthe bolusadministration of nonionic intravenous contrast. Sagittal and coronalreformatted images areprovided for interpretation. All CT scans at [facility] use dose modulation, iterative reconstruction, and [...] LMW Heparin. Order Code is ANTI-XA URINALYSIS *WW*2017-02-25 02:18:00 Test Item Value Reference Range Comments [...] (test code=WAUAM) NO NO CBC (INCLUDES AUTOMATED DIFFERENTIAL)*[id number] 02:15:00 Test Item Value Reference Range Comments [...] MORPH (test code=WRBCMOR) NORMAL RAPID DRUG SCREEN, [id number] 20:58:00 Test Item Value Reference Range Comments BARBITURATE URINE (BEAKER) (test lumn=569) Negative Negative BENZODIAZEPINE SCREEN URINE (BEAKER) (test Negative Negative tyra=812) COCAINE (METAB.) SCREEN (BEAKER) (test ilzk=4901) Negative Negative METHADONE SCREEN (BEAKER) (test nyfk=0278) Negative Negative OPIATE SCREEN URINE (BEAKER) (test cuds=726) Positive Negative CANNABINOID SCREEN URINE (BEAKER) (test ycyf=999) Positive Negative AMPH/METHAMPH SCREEN (BEAKER) (test ubyo=7717) Negative Negative PHENCYCLIDINE SCREEN URINE (BEAKER) (test ijit=737) Negative Negative DRUG CUTOFF CONC.Cocaine 300 ng/mL Cannabinoid 50 ng/mLBenzodiazepine 200 ng/mLBarbiturate 200 ng/ mLPhencyclidine 25 ng/mLOpiate 300 ng/mLMethadone 300 ng/mLAmphetamine/ 1000 ng/mL MethamphetamineThis assay provides an unconfirmed qualitative test result for the clinical management of patients in emergency situations. Chain of custody not maintained. Some pfxb-rhg-yldzedp medications, as well as adulterants, may cause inaccurate results. Clinical correlation should be applied. A more comprehensivedrug screen or confirmation of a detected drug may be performed upon request.URINALYSIS W/ [id number] 20:27:00 Test Item Value Reference Range Comments COLOR (BEAKER) (test yfds=873) Light Yellow CLARITY (BEAKER) (test quzv=266) Clear SPECIFIC GRAVITY UA (BEAKER) (test ggdj=414) 1.016 1.001-1.035 PH UA (BEAKER) (test xsrz=683) 6.0 5.0-8.0 PROTEIN UA (BEAKER) (test airh=140) Negative Negative GLUCOSE UA (BEAKER) (test lkot=174) >500 mg/dL Negative KETONES UA (BEAKER) (test cgfz=224) Negative Negative BILIRUBIN UA (BEAKER) (test dplv=135) Negative Negative BLOOD UA (BEAKER) (test eghg=777) Negative Negative NITRITE UA (BEAKER) (test anbz=471) Negative Negative LEUKOCYTE ESTERASE UA (BEAKER) (test tcez=458) Negative Negative UROBILINOGEN UA (BEAKER) (test uotl=874) < mg/dL 0.2-1.0 RBC UA (BEAKER) (test bdfb=027) < /HPF WBC UA (BEAKER) (test culv=716) 0 /HPF BACTERIA (BEAKER) (test jubw=077) Rare MUCUS (BEAKER) (test tgod=6294) Rare SOURCE(BEAKER) (test bqbl=4376) KETONE, [id number] 20:12:00 Test Item Value Reference Range Comments KETONES, BLOOD (BEAKER) (test onay=6690) 0.0 mmol/L <0.4 POCT-GLUCOSE [id number] 20:08:00 Test Item Value Reference Range Comments POC-GLUCOSE METER (BEAKER) 241 mg/dL 70-110 TESTED AT [facility] [address] [facility] (test unud=8081) [facility] [address] BLOOD GAS, [id number] 20:05:00 Test Item Value Reference Range Comments PH VENOUS (BEAKER) (test pisa=447) 7.42 7.32-7.42 PCO2 VENOUS (BEAKER) (test zfie=456) 36 mmHg 41-51 PO2 VENOUS (BEAKER) (test gteo=588) 43 mmHg 25-40 O2 SATURATION VENOUS (BEAKER) (test hqug=786) 80.3 % 40.0-70.0 HCO3 VENOUS (BEAKER) (test amab=116) 23 mmol/L 21-29 BASE EXCESS VENOUS (BEAKER) (test oilf=068) -1.4 mmol/L -2.0-3.0 PATIENT TEMPERATURE (BEAKER) (test qfsu=2147) 36.7 C CREATINE KINASE (CK), TOTAL AND [id number] 20:05:00 Test Item Value Reference Range Comments CREATINE KINASE TOTAL (BEAKER) (test aotd=066) 57 U/L 30-300 CREATINE KINASE-MB (BEAKER) (test jreb=497) 0.6 ng/mL 0.0-4.9 CREATINE KINASE-MB INDEX (BEAKER) (test vktb=954) 1.1 % CK-MB Reference Range:<5 Normal5-10 Borderline>10 AbnormalTROPONIN [id number] 20:05:00 Test Item Value Reference Range Comments TROPONIN I (BEAKER) (test dqhz=976) < ng/mL 0.00-0.15 Troponin I (TnI) levels [...] Range Comments B-TYPE NATRIURETIC PEPTIDE (BEAKER) (test djfd=422) < pg/mL 0-100 [id number] 19:59:00 Test Item Value Reference Range Comments D-DIMER QUANTITATIVE (BEAKER) (test rcvg=527) < MG/L FEU <0.50 Intended Use: The [...] within 95-100% range.RAD, CHEST, 1 VIEW, NON [id number] 19:59:00Reason for exam:->cpShould this be performed at the bedside?->YesFINAL REPORT Clinical History: cp Comparison Study: None Findings: The heartand lungs are within normal limits. The pleural spaces are clear. No significant bony or soft tissue abnormalities are seen. Impression: No active cardiopulmonary disease. Signed: Carlos Severino MDReport Verified Date/Time: 01/19/2017 19:59:25 Reading Location: [address] Consult Reading Room COMPREHENSIVE METABOLIC [id number] 19:58:00 Test Item Value Reference Range Comments TOTAL PROTEIN (BEAKER) 6.7 gm/dL 6.0-8.5 Specimen moderately (test xkim=360) hemolyzed ALBUMIN (BEAKER) (test 3.5 g/dL 3.5-5.0 Specimen moderately kyfe=8349) hemolyzed ALKALINE PHOSPHATASE 84 U/L 30-115 (BEAKER) (test clvd=206) BILIRUBIN TOTAL (BEAKER) 0.2 mg/dL 0.1-1.3 Specimen moderately (test dzgn=713) hemolyzed SODIUM (BEAKER) (test 138 meq/L 135-148 owlu=623) POTASSIUM (BEAKER) (test 3.8 meq/L 3.5-5.5 Specimen moderately jmnb=150) hemolyzed CHLORIDE (BEAKER) (test 106 meq/L 98-106 zcno=560) CO2 (BEAKER) (test 21 meq/L 20-31 edkb=594) BLOOD UREA NITROGEN 6 mg/dL 10-26 (BEAKER) (test qppe=938) CREATININE (BEAKER) (test 0.84 mg/dL 0.50-1.20 Specimen moderately zgtm=284) hemolyzed GLUCOSE RANDOM (BEAKER) 289 mg/dL 70-110 (test pqrc=789) CALCIUM (BEAKER) (test 8.8 mg/dL 8.5-10.5 ckeh=916) AST (SGOT) (BEAKER) (test 20 U/L 5-40 Specimen moderately rdxf=439) hemolyzed ALT (SGPT) (BEAKER) (test 13 U/L 6-50 Specimen moderately zgii=565) hemolyzed EGFR (BEAKER) (test 103 mL/min/1.73 sq ESTIMATED GFR IS NOT gujr=0334) m ACCURATE CREATININE CLEARANCE IN PREDICTING GLOMERULAR FILTRATION RATE. ESTIMATED GFR IS NOT APPLICABLE FOR DIALYSIS PATIENTS. CBC W/PLT COUNT & AUTO [id number] 19:42:00 Test Item Value Reference Range Comments WHITE BLOOD CELL COUNT (BEAKER) (test poos=673) 12.4 K/ L 4.0-10.0 RED BLOOD CELL COUNT (BEAKER) (test zynv=788) 4.98 M/ L 4.20-5.80 HEMOGLOBIN (BEAKER) (test xelv=512) 14.4 GM/DL 13.0-16.8 HEMATOCRIT (BEAKER) (test aodi=494) 43.5 % 40.0-50.0 MEAN CORPUSCULAR VOLUME (BEAKER) (test vykv=263) 87.4 fL 82.0-98.0 MEAN CORPUSCULAR HEMOGLOBIN (BEAKER) (test 28.8 pg 27.0-33.0 dovx=984) MEAN CORPUSCULAR HEMOGLOBIN CONC (BEAKER) (test 33.0 GM/DL 32.0-36.0 must=182) RED CELL DISTRIBUTION WIDTH (BEAKER) (test 13.9 % 12.0-15.0 ufgo=921) PLATELET COUNT (BEAKER) (test octk=089) 313 K/CU MM 150-430 MEAN PLATELET VOLUME (BEAKER) (test umdr=049) 8.6 fL 6.5-10.5 NUCLEATED RED BLOOD CELLS (BEAKER) (test 0 /100 WBC 0-0 qwdj=194) NEUTROPHILS RELATIVE PERCENT (BEAKER) (test 60 % kdcu=473) LYMPHOCYTES RELATIVE PERCENT (BEAKER) (test 29 % cbro=893) MONOCYTES RELATIVE PERCENT (BEAKER) (test 7 % burh=422) EOSINOPHILS RELATIVE PERCENT (BEAKER) (test 3 % eydv=835) BASOPHILS RELATIVE PERCENT (BEAKER) (test 1 % clmw=679) NEUTROPHILS ABSOLUTE COUNT (BEAKER) (test 7.40 K/ L 1.80-8.00 vbvw=580) LYMPHOCYTES ABSOLUTE COUNT (BEAKER) (test 3.60 K/ L 1.48-4.50 tqev=115) MONOCYTES ABSOLUTE COUNT (BEAKER) (test 0.80 K/ L 0.00-1.30 ylwe=672) EOSINOPHILS ABSOLUTE COUNT (BEAKER) (test 0.40 K/ L 0.00-0.50 gkjj=912) BASOPHILS ABSOLUTE COUNT (BEAKER) (test 0.20 K/ L 0.00-0.20 muxj=360) POCT-GLUCOSE [id number] 19:02:00 Test Item Value Reference Range Comments POC-GLUCOSE METER (BEAKER) 367 mg/dL 70-110 TESTED AT [address] (test gvck=7769) [facility] [address] [address], SPINE, CERVICAL, WO [id number] 18:25:00Reason for exam:->NECK PAINWhat is the patient's [...] normal cervical lordosis. Signed : Nba Mittal Verified Date/Time: 01/15/2017 18:25:26 Reading Location: [address] Reading Room Electronically signed by: NBA MITTAL M.D.on 01/15/2017 06:25 PMCT, BRAIN, WITHOUT [id number] 18:14:00Reason for exam:->NECK PAINWhat is the patient's [...] further evaluation if warranted. Signed: Nba Mittal MDRrafyort Verified Date/Time: 18:14:13 Reading Location: [address] Reading Room XR KNEE RIGHT 3 [id number] 22:22:15EXAM: Portable right knee series, 3 viewsLocation: [id number]: Fell on right knee and twisted right kneeCOMPARISON: None.DISCUSSION: Frontal, oblique, and crosstable lateral views of the right kneeare submitted. No fracture, dislocation, lytic or blastic lesions areidentified. Joint spaces appear well preserved. No joint effusion is seen.IMPRESSION:No acute bony abnormalities.XR ANKLE RIGHT COMPLETE 3 [id number] 22:21:22EXAM: Right ankle series, 3 viewsLocation: [id number]: Fell, twisted right ankleCOMPARISON: None.DISCUSSION: Frontal, oblique, and lateral views of the right ankle aresubmitted. There is a questionable hairline fracture of the distal fibula, onlyseen on the oblique view near the ankle mortise. No other evidence of fractureis seen.IMPRESSION: Questionable hairline fracture of the distal fibula.RAPID DRUG SCREEN, [id number] 23:10:00 Test Item Value Reference Range Comments BARBITURATE URINE (BEAKER) (test qcgf=512) Negative Negative BENZODIAZEPINE SCREEN URINE (BEAKER) (test Negative Negative clgz=944) COCAINE (METAB.) SCREEN (BEAKER) (test jvwn=5943) Negative Negative METHADONE SCREEN (BEAKER) (test zrmi=0913) Negative Negative OPIATE SCREEN URINE (BEAKER) (test maex=580) Positive Negative CANNABINOID SCREEN URINE (BEAKER) (test otgg=290) Negative Negative AMPH/METHAMPH SCREEN (BEAKER) (test kspn=3445) Negative Negative PHENCYCLIDINE SCREEN URINE (BEAKER) (test cvkb=723) Negative Negative DRUG CUTOFF CONC.Cocaine 300 ng/mL Cannabinoid 50 ng/mLBenzodiazepine 200 ng/mLBarbiturate 200 ng/ mLPhencyclidine 25 ng/mLOpiate 300 ng/mLMethadone 300 ng/mLAmphetamine/ 1000 ng/mL MethamphetamineThis assay provides an unconfirmed qualitative test result for the clinical management of patients in emergency situations. Chain of custody not maintained. Some pyxm-aij-mlpyqxy medications, as well as adulterants, may cause inaccurate results. Clinical correlation should be applied. A more comprehensivedrug screen or confirmation of a detected drug may be performed upon request.URINALYSIS W/ [id number] 22:55:00 Test Item Value Reference Range Comments COLOR (BEAKER) (test zsrz=104) Yellow CLARITY (BEAKER) (test kdbt=895) Clear SPECIFIC GRAVITY UA (BEAKER) (test pzux=688) 1.025 1.001-1.035 PH UA (BEAKER) (test lryq=005) 6.0 5.0-8.0 PROTEIN UA (BEAKER) (test fnhg=523) Negative Negative GLUCOSE UA (BEAKER) (test hsua=307) Negative Negative KETONES UA (BEAKER) (test idpe=153) Negative Negative BILIRUBIN UA (BEAKER) (test sjxd=081) Negative Negative BLOOD UA (BEAKER) (test rxmv=132) Negative Negative NITRITE UA (BEAKER) (test hedh=780) Negative Negative LEUKOCYTE ESTERASE UA (BEAKER) (test lptx=356) Negative Negative UROBILINOGEN UA (BEAKER) (test whsw=641) 0.2 mg/dL 0.2-1.0 BACTERIA (BEAKER) (test mrmo=975) Occasional MUCUS (BEAKER) (test yrbj=9676) Many RBC UA-MANUAL (BEAKER) (test lcsr=6522) <5 /HPF WBC UA-MANUAL (BEAKER) (test narx=5855) <5 /HPF SQUAMOUS EPITHELIAL MANUAL (BEAKER) (test <5 /HPF iqtd=1815) SOURCE(BEAKER) (test xlts=2313) XR SHOULDER LEFT 3 [id number] 09:00:14EXAMINATION: XR SHOULDER LEFT 3 VIEWS.LOCATION: D4.HISTORY: shoulder pain while carrying heavy load.COMPARISON: Left shoulder x-ray 04/16/2015.FINDINGS/IMPRESSION:Three views of left shoulder demonstrates acute osseous abnormality. Nodislocation. Left clavicle appears intact. Visualized left lung parenchymaappears unremarkable.
[2017-08-31] MEDS ORDERED: MORPHINE 4 MG/ML SYR ONE (19:25)
[2017-08-31] MEDS ORDERED: NA CHLORIDE 0.9% 2,000 ML ONE (19:26)
[2017-08-31] MEDS ORDERED: ONDANSETRON 4 MG/2 ML VIAL ONE (19:26)
--- NOTE | 2017-08-31 19:45 | RAD REPORT ---
EXAM DESCRIPTION: CT - Stone Protocol - 08/31/2017 7:33 pm CLINICAL HISTORY: Flank pain. COMPARISON: 03/22/2017, 08/13/2017 TECHNIQUE: Axial images were obtained without oral or IV contrast. Lack of contrast limits solid org an and vascular assessment. The oaetk-bu-rngf spans the entirety of the system partially obscuring uppermost abdomen and lung bases. Coronal reformatted images were obtained and reviewed. All CT scans are performed using dose optimization technique as appropriate and may include automated exposure control or mA/KV adjustment according to patient size. FINDINGS: The lower lung cadet are clear. Imaged portions of the liver and spleen show no suspicious findings on non-contrast imaging.Calcifica tion in the right hepatic lobe is unchanged. The pancreas and adrenal glands are normal. No pathologi c lymphadenopathy in the abdomen or pelvis. No urinary tract stones or obstructive uropathy. No bowel obstruction, free air, free fluid or abscess. Normal appendix noted. No significant bony abnormality. IMPRESSION: No urinary tract stones or obstructive uropathy.
[2017-08-31 19:50] LABS: Absolute Lymphocytes (CBC) 2.1 K/uL (0.7-4.9); Absolute Monocytes 0.8 K/uL (0.1-1.3); Absolute Neutrophil 7.1 K/uL (1.8-8.0); Basophils % 0.7 % (0-1.3); Eosinophils % 2.3 % (0-4.4); Hematocrit 37.5 % (39.6-49.0); Lymphocytes % 20.5 % (15.3-44.8); MCH 27.9 pg (27.0-35.0); MCV 82.8 fL (80-100); MPV 7.2 fL (7.6-11.3); Monocytes % 8.1 % (3.3-12.3); RBC Red Blood Cell Count 4.52 M/uL (4.33-5.43)
[2017-08-31 20:13] LABS: Urine Bacteria NONE SEEN /HPF (NONE SEEN); Urine Culture Reflex Order NOT NEEDED; Urine RBC <5 /HPF (NONE SEEN)
[2017-08-31 20:37] LABS: Bicarbonate 26 mEq/L (21-31); Glucose Level 97 mg/dL (65-120); Lipase 18 U/L (22-51); Potassium 3.8 mEq/L (3.6-5.0); Sodium Level 140 mEq/L (135-145)
--- NOTE | 2017-08-31 20:41 | RAD REPORT ---
EXAM DESCRIPTION: US - Abdomen Exam Limited - 08/31/2017 8:24 pm CLINICAL HISTORY: Abdominal pain. COMPARISON: None. FINDINGS: The gallbladder demonstrates multiple shadowing gallstones. No pericholecystic fluid or ga llbladder wall thickening. The common bile duct is normal measuring 5 mm. The liver demonstrates no findings of intrahepatic biliary dilatation. IMPRESSION: Cholelithiasis.
[2017-08-31 20:43] LABS: ALT/SGPT 8 IU/L (10-60); AST/SGOT 11 IU/L (10-42); Albumin 3.3 g/dL (3.2-5.5); Alkaline Phosphatase 87 IU/L (42-121); Amylase Level 32 U/L (28-100); BUN Blood Urea Nitrogen 6 mg/dL (6-20); Bilirubin Direct 0.1 mg/dL (0-0.2); Bilirubin Total 0.3 mg/dL (0.3-1.2); Protein, Total 6.3 g/dL (6.0-8.3)
--- NOTE | 2017-08-31 21:10 | EDPHYS ---
Physician Documentation [facility] Name: Adria Guallpa Jr Age: 37 yrs Sex: Male : 1980 Arrival Date: 08/31/2017 Time: 17:35 Bed 17 Private MD: ED Physician Jin Mace HPI: 08/31 19:20 This 37 yrs old Male presents to ER via Ambulatory with complaints of Pain cp With Urination, Flank Pain. 19:20 The patient complains of pain in the right flank. The pain radiates to the back and cp right groin. 19:20 Onset: The symptoms/episode began/occurred 2 day(s) ago. cp 19:20 Modifying factors: the symptoms are aggravated by palpation/percussion. Associated cp signs and symptoms: Pertinent positives: nausea, vomiting, Pertinent negatives: diarrhea, fever, headache, hematuria, pain radiating to the lower extremities. Historical: - Allergies: 17:56 Flexeril; aj 17:56 Ibuprofen; aj 17:56 Toradol; aj - Home Meds: 17:56 aspirin 81 mg Oral chew [Active]; gabapentin 300 mg Oral cap 1 cap twice a day aj [Active]; metformin 500 mg Oral tab 1 tab 2 times per day [Active]; - PMHx: 17:56 Chronic pain; Diabetes - NIDDM; Myocardial infarction; aj - PSHx: 17:56 Eye Surgery; aj - Immunization history:: Adult Immunizations up to date. - Social history:: Smoking status: Patient uses tobacco products, smokes one-half pack cigarettes per day. ROS: 19:30 Constitutional: Positive for poor PO intake, Negative for body aches, chills, fever. cp 19:30 Eyes: Negative for injury, pain, redness, and discharge. cp 19:30 ENT: Negative for drainage from ear(s), ear pain, sore throat, difficulty swallowing, difficulty handling secretions. 19:30 Cardiovascular: Negative for chest pain, edema, palpitations. 19:30 Respiratory: Negative for cough, shortness of breath, wheezing. 19:30 Abdomen/GI: Positive for abdominal pain, nausea and vomiting, Negative for diarrhea, constipation, anorexia, black/tarry stool, rectal bleeding. 19:30 : Positive for flank pain, pain with urination, Negative for difficulty urinating. 19:30 MS/extremity: Negative for injury or acute deformity, paresthesias. 19:30 Skin: Negative for cellulitis, rash. 19:30 Neuro: Negative for altered mental status, headache, numbness. 19:30 All other systems are negative. Exam: 19:35 Constitutional: The patient appears in no acute distress, alert, awake, cp non-diaphoretic, non-toxic, well developed, well nourished, uncomfortable. 19:35 Head/Face: Normocephalic, atraumatic. cp 19:35 Eyes: Periorbital structures: appear normal, Conjunctiva: normal, no exudate, no injection, Sclera: no appreciated abnormality, Lids and lashes: appear normal, bilaterally. 19:35 ENT: External ear(s): are unremarkable, Nose: is normal, Mouth: Lips: moist, Oral mucosa: moist, Posterior pharynx: is normal, airway is patent, no erythema, no exudate. 19:35 Neck: ROM/movement: is normal, is supple, without pain, no range of motions limitations, no nuchal rigidity. 19:35 Chest/axilla: Inspection: normal, Palpation: is normal, no crepitus, no tenderness. 19:35 Cardiovascular: Rate: normal, Rhythm: regular. 19:35 Respiratory: the patient does not display signs of respiratory distress, Respirations: normal, no use of accessory muscles, no retractions, no splinting, no tachypnea, labored breathing, is not present, Breath sounds: are clear throughout, no decreased breath sounds, no stridor, no wheezing. 19:35 Abdomen/GI: Inspection: abdomen appears normal, Bowel sounds: active, all quadrants, Palpation: soft, in all quadrants, moderate abdominal tenderness, in the anterior aspect of right lateral abdomen, posterior aspect of right lateral abdomen, right upper quadrant and right lower quadrant, rebound tenderness, is not appreciated, voluntary guarding, is elicited in the anterior aspect of right lateral abdomen, posterior aspect of right lateral abdomen, right upper quadrant and right lower quadrant. 19:35 Back: CVA tenderness, is noted on the right. 19:35 Musculoskeletal/extremity: Exam is negative for decreased range of motion, deformity, injury. 19:35 Skin: cellulitis, is not appreciated, no rash present. 19:35 Neuro: Orientation: to person, place \T\ time. Mentation: lucid, able to follow commands, Cerebellar function: is grossly normal, Motor: moves all fours, strength is normal, Sensation: no obvious gross deficits. Vital Signs: 17:56 BP 133 / 81; Pulse 78; Resp 18; Temp 99.2; Pulse Ox 99% on R/A; Weight 84.37 kg; Height aj 5 ft. 10 in. (177.80 cm); Pain 7/10; 20:58 BP 122 / 82; Pulse 61; Resp 17 S; Pulse Ox 100% on R/A; jd3 17:56 Body Mass Index 26.69 (84.37 kg, 177.80 cm) aj MDM: 19:05 Patient medically screened. cp 20:00 Differential diagnosis: nephrolithiasis, pyelonephritis, UTI, diverticulitis, cp pancreatitis, ruptured AAA, dissecting AAA. 21:08 Data reviewed: vital signs, nurses notes, lab test result(s), radiologic studies, CT cp scan, ultrasound, and as a result, I will discharge patient. Counseling: I had a detailed discussion with the patient and/or guardian regarding: the historical points, exam findings, and any diagnostic results supporting the discharge/admit diagnosis, lab results, the need for outpatient follow up, a general surgeon, to return to the emergency department if symptoms worsen or persist or if there are any questions or concerns that arise at home. Response to treatment: the patient's symptoms have markedly improved after treatment. 08/31 19:12 Order name: Amylase, Serum; Complete Time: 20:45 cp 08/31 20:46 Interpretation: Within normal limits: COLIN 32. 08/31 19:12 Order name: Basic Metabolic Panel; Complete Time: 20:45 cp 08/31 20:46 Interpretation: Reviewed. 08/31 19:12 Order name: CBC with Diff; Complete Time: 20:45 cp / 20:45 Interpretation: Normal except: HGB 12.6; HCT 37.5; RDW 15.9; MPV 7.2. 08/31 19:12 Order name: Creatinine for Radiology; Complete Time: 19:50 cp 08/31 19:12 Order name: Hepatic Function; Complete Time: 20:45 cp 08/31 20:45 Interpretation: Normal except: SGPT 8. cp 08/31 19:12 Order name: Lipase; Complete Time: 20:45 cp 08/31 20:46 Interpretation: Abnormal: LIP 18. cp 08/31 19:12 Order name: Urine Microscopic Only; Complete Time: 20:45 cp 08/31 20:46 Interpretation: Reviewed. cp 08/31 19:12 Order name: CT Stone Protocol; Complete Time: 19:50 cp 08/31 19:18 Order name: Urine Dipstick--Ancillary (enter results) em1 08/31 19:18 Order name: Urine Dipstick-Ancillary EDMS 08/31 19:52 Order name: US Abdomen Limited: RUQ; Complete Time: 20:45 cp 08/31 19:12 Order name: IV Saline Lock; Complete Time: 19:34 cp 08/31 19:12 Order name: Labs collected and sent; Complete Time: 19:34 cp 08/31 19:12 Order name: Urine Dipstick-Ancillary (obtain specimen); Complete Time: 19:17 cp 08/31 19:52 Order name: NPO; Complete Time: 20:27 cp 08/31 20:47 Order name: PO challenge; Complete Time: 20:58 cp Administered Medications: 19:39 Drug: NS 0.9% 1000 ml Route: IV; Rate: 125 ml/hr; Site: right antecubital; jd3 21:28 Follow up: Response: No adverse reaction; IV Status: Completed infusion; IV Intake: jd3 500ml 19:40 Drug: morphine 4 mg Route: IVP; Site: right antecubital; jd3 21:29 Follow up: Response: No adverse reaction jd3 19:40 Drug: Zofran 4 mg Route: IVP; Site: right antecubital; jd3 21:28 Follow up: Response: No adverse reaction jd3 19:40 Drug: NS 0.9% 1000 ml Route: IV; Rate: 1 bolus; Site: right antecubital; jd3 21:28 Follow up: Response: No adverse reaction; IV Status: Completed infusion; IV Intake: jd3 1000ml Disposition: 09/01 10:55 Co-signature as Attending Physician, Jin Mace MD I agree with the assessment and sabina plan of care. Disposition: 08/31/17 21:09 Discharged to Home. Impression: Cholelithiasis. - Condition is Stable. - Discharge Instructions: Biliary Colic, Cholelithiasis. - Prescriptions for Bentyl 20 mg Oral Tablet - take 2 tablet by ORAL route every 6 hours As needed; 40 tablet. promethazine 25 mg Oral Tablet - take 1 tablet by ORAL route every 6 hours As needed; 20 tablet. Tramadol 50 mg Oral Tablet - take 1 tablet by ORAL route every 8 hours as needed; 12 tablet. - Medication Reconciliation Form, Thank You Letter, Antibiotic Education, Prescription Opioid Use form. - Follow up: Martir Flores MD; When: 1 - 2 days; Reason: Recheck today's complaints. - Problem is new. - Symptoms have improved. Signatures: Dispatcher [employer] EDLuisa Lamar, RN RN Jin Juarez MD MD cha Page, Corey PA PA Nathen Gasca RN RN jd3 Corrections: (The following items were deleted from the chart) 08/31 21:29 21:09 08/31/2017 21:09 Discharged to Home. Impression: Cholelithiasis. Condition is jd3 Stable. Forms are Medication Reconciliation Form, Thank You Letter, Antibiotic Education, Prescription Opioid Use. Follow up: Dr. Martir Flores; When: 1 - 2 days; Reason: Recheck today's complaints. Problem is new. Symptoms have improved. cp
--- NOTE | 2017-08-31 21:10 | ER ---
Nurse's Notes [facility] Name: Adria Guallpa Jr Age: 37 yrs Sex: Male : 1980 Arrival Date: 08/31/2017 Time: 17:35 Bed 17 Private MD: Diagnosis: Cholelithiasis Presentation: 08/31 17:55 Presenting complaint: Patient states: Right flank pain for 2 days. N/V/D for 2 days. aj Transition of care: patient was not received from another setting of care. Onset of symptoms was August 29, 2017. Initial Sepsis Screen: Does the patient meet any 2 criteria? No. Patient's initial sepsis screen is negative. Does the patient have a suspected source of infection? No. Patient's initial sepsis screen is negative. Care prior to arrival: None. 17:55 Method Of Arrival: Ambulatory 17:55 Acuity: DAVE 3 aj Triage Assessment: 17:56 General: Appears in no apparent distress. comfortable, Behavior is calm, cooperative, aj appropriate for age. Pain: Complains of pain in anterior aspect of right lateral abdomen and posterior aspect of right lateral abdomen Pain currently is 8 out of 10 on a pain scale. Neuro: Level of Consciousness is awake, alert, obeys commands, Oriented to person, place, time, situation, Appropriate for age. Respiratory: Airway is patent Trachea midline Respiratory effort is even, unlabored, Respiratory pattern is regular, symmetrical. GI: Reports lower abdominal pain, upper abdominal pain, diarrhea, nausea, vomiting. Derm: Skin is intact, is healthy with good turgor, Skin is pink, warm \T\ dry. normal. Historical: - Allergies: 17:56 Flexeril; aj 17:56 Ibuprofen; aj 17:56 Toradol; aj - Home Meds: 17:56 aspirin 81 mg Oral chew [Active]; gabapentin 300 mg Oral cap 1 cap twice a day aj [Active]; metformin 500 mg Oral tab 1 tab 2 times per day [Active]; - PMHx: 17:56 Chronic pain; Diabetes - NIDDM; Myocardial infarction; aj - PSHx: 17:56 Eye Surgery; aj - Immunization history:: Adult Immunizations up to date. - Social history:: Smoking status: Patient uses tobacco products, smokes one-half pack cigarettes per day. Screenin:12 Abuse screen: Denies threats or abuse. Nutritional screening: No deficits noted. jd3 Tuberculosis screening: No symptoms or risk factors identified. Fall Risk None identified. Assessment: 19:09 General: Appears in no apparent distress. uncomfortable, Behavior is calm, cooperative, jd3 appropriate for age. Pain: Complains of pain in posterior aspect of right lateral abdomen, right upper quadrant and right lower quadrant Quality of pain is described as sharp. Neuro: Level of Consciousness is awake, alert, obeys commands, Oriented to person, place, time, situation. Cardiovascular: Heart tones S1 S2 present Capillary refill < 3 seconds Patient's skin is warm and dry. Respiratory: Airway is patent Respiratory effort is even, unlabored, Respiratory pattern is regular, symmetrical, Breath sounds are clear bilaterally. GI: Abdomen is round Bowel sounds present X 4 quads. Abd is soft Abdomen is tender to palpation in right upper quadrant and right lower quadrant. : No signs and/or symptoms were reported regarding the genitourinary system. EENT: No signs and/or symptoms were reported regarding the EENT system. Derm: Skin is intact, Skin is dry, Skin is normal, Skin temperature is warm. Musculoskeletal: Circulation, motion, and sensation intact. Range of motion: intact in all extremities. 20:00 Reassessment: Patient appears in no apparent distress at this time. Patient and/or jd3 family updated on plan of care and expected duration. Pain level reassessed. Patient is alert, oriented x 3, equal unlabored respirations, skin warm/dry/pink. 20:59 Reassessment: Patient appears in no apparent distress at this time. Patient and/or jd3 family updated on plan of care and expected duration. Pain level reassessed. Patient is alert, oriented x 3, equal unlabored respirations, skin warm/dry/pink. provider at bedside discussing plan of care. 21:26 Reassessment: Patient appears in no apparent distress at this time. Patient and/or jd3 family updated on plan of care and expected duration. Pain level reassessed. Patient is alert, oriented x 3, equal unlabored respirations, skin warm/dry/pink. pt reported understanding of discharge instructions, even and steady gait upon discharge. Vital Signs: 17:56 BP 133 / 81; Pulse 78; Resp 18; Temp 99.2; Pulse Ox 99% on R/A; Weight 84.37 kg; Height aj 5 ft. 10 in. (177.80 cm); Pain 7/10; 20:58 BP 122 / 82; Pulse 61; Resp 17 S; Pulse Ox 100% on R/A; jd3 17:56 Body Mass Index 26.69 (84.37 kg, 177.80 cm) aj ED Course: 17:35 Patient arrived in ED. sb2 17:56 Triage completed. aj 17:56 Arm band placed on left wrist. Patient placed in waiting room, Patient notified of wait aj time. 19:04 Jin Virk PA is PHCP. cp 19:04 Jin Mace MD is Attending Physician. cp 19:09 Nathen Bradley RN is Primary Nurse. jd3 19:13 Patient has correct armband on for positive identification. Bed in low position. Call jd3 light in reach. Side rails up X 1. 19:20 Inserted saline lock: 20 gauge in right antecubital area, using aseptic technique. jd3 Blood collected. 19:31 CT completed. Patient tolerated procedure well. Patient moved to CT via wheelchair. vr 19:33 Patient moved back from CT. vr 19:34 CT Stone Protocol In Process Unspecified. EDMS 20:22 US Abdomen Limited: RUQ In Process Unspecified. EDMS 20:23 Ultrasound completed. Patient tolerated well. aa4 21:09 Martir Flores MD is Referral Physician. cp 21:25 No provider procedures requiring assistance completed. IV discontinued, intact, jd3 bleeding controlled, No redness/swelling at site. Pressure dressing applied. Administered Medications: 19:39 Drug: NS 0.9% 1000 ml Route: IV; Rate: 125 ml/hr; Site: right antecubital; jd3 21:28 Follow up: Response: No adverse reaction; IV Status: Completed infusion; IV Intake: jd3 500ml 19:40 Drug: morphine 4 mg Route: IVP; Site: right antecubital; jd3 21:29 Follow up: Response: No adverse reaction jd3 19:40 Drug: Zofran 4 mg Route: IVP; Site: right antecubital; jd3 21:28 Follow up: Response: No adverse reaction jd3 19:40 Drug: NS 0.9% 1000 ml Route: IV; Rate: 1 bolus; Site: right antecubital; jd3 21:28 Follow up: Response: No adverse reaction; IV Status: Completed infusion; IV Intake: jd3 1000ml Intake: 21:28 IV: 500ml; Total: 500ml. jd3 21: IV: 1000ml; Total: 1500ml. jd3 Outcome: 21: Discharge ordered by . cp 21: Discharged to home ambulatory. jd3 : Condition: stable 21: Discharge instructions given to patient, Instructed on discharge instructions, follow up and referral plans. medication usage, Demonstrated understanding of instructions, follow-up care, medications, Prescriptions given X 3. 21:29 Patient left the ED. jd3 Signatures: Dispatcher [employer] Luisa Dunn, RN RN Luisa Garcia4 Rosaura Fink Corey, PA PA cp Davies, Jonathon, RN RN Tracy Henry2
[2017-08-31 22:26] LABS: Urine Blood NEGATIVE (NEG); Urine Glucose NEGATIVE (NEG); Urine Protein NEGATIVE (NEG); Urine pH 6.5 (5.0-7.0)
== END 2017-08-31 21:29 | disposition home or self-care (01) ==
LOC: ER 17:34
DX: K80.20 Calculus of gallbladder without cholecystitis without obstruction (principal); F17.210 Nicotine dependence, cigarettes, uncomplicated; E11.9 Type 2 diabetes mellitus without complications; I25.2 Old myocardial infarction; Z79.82 Long term (current) use of aspirin; Z88.6 Allergy status to analgesic agent; Z88.8 Allergy status to other drugs, medicaments and biological substances
CPT/HCPCS: 36415; 74176; 76377; 76705; 80048; 80076; 81003; 81015; 82150; 83690; 85025; 96361; 96374; 96375; 99284; J2405; J7030

== ENCOUNTER 2017-09-03 17:11 | Emergency (ER) | payer SELFPAY ==
--- OUTSIDE RECORDS SUMMARY | 2017-09-03 17:13 | XMS REPORT | Clinical Summary ---
:1980 Author Organization [facility] Address [address] [place] [address] Phone Care Team Providers Name Role Phone [...] Right elbow pain DO (Primary Dx) after 09/02/2016 Social History Tobacco Use Types Packs/Day Years Used Date Current Every Day Smoker Cigarettes 1 Smokeless Tobacco: Never Used Alcohol Use Drinks/Week oz/Week Comments No Sex Assigned at Date Recorded Not on file Last Filed Vital Signs Vital Sign Reading Time Taken Blood Pressure 124/58 03/08/2017 9:16 AM [facility] Pulse 67 03/08/2017 9:15 AM [facility] Temperature 36.6 C (97.8 F) 03/08/2017 7:45 AM [facility] Respiratory Rate 18 03/08/2017 7:45 AM [facility] Oxygen Saturation 98% 03/08/2017 9:15 AM [facility] Inhaled Oxygen Concentration - - Weight 90.7 kg (200 lb) 03/08/2017 7:45 AM [facility] Height 177.8 cm (5' 10") 02/25/2017 8:16 AM CDT Body Mass Index 28.7 03/08/2017 7:45 AM [facility] Plan of Treatment Not on file Results [...] MD Report Verified Date/Time:03/08/2017 09:15:05 Reading Location: [address] Consult Reading Room Procedure Note Interface, External Ris In - 03/08/2017 9:17 AM [facility] FINAL REPORT CT abdomen and pelvis with [...] Report Verified Date/Time: 03/08/2017 09:15:05 Reading Location: [facility] C013X Ortho Consult Reading Room with [...] Performing Laboratory Blood - Arm, Right , [facility] [address] [place] [address] CBC with platelet count + automated diff (03/08/2017 8:00 AM)Only the most recent of2 resultswithin the time period is included. Specimen Performing Laboratory Blood Narrative The following orders were created for panel order CBC with platelet count + automated diff. Procedure Abnormality Status --------- ------ CBC with platelet count ...[[id number]]AbnormalFinal result Please view results for these tests on the individual orders. ALT (SGPT) (03/08/2017 8:00 AM) Component Value Ref Range ALT 21 5 - 50 U/L Specimen Performing Laboratory Blood - Arm, [facility], [facility] [place] [address] [place] [address] AST (SGOT) (03/08/2017 8:00 AM) Component Value Ref Range AST 11 5 - 40 U/L Specimen Performing Laboratory Blood - [facility], [facility], [facility] [address] [place] [address] Lipase (03/08/2017 8:00 AM) Component Value Ref Range Lipase 37 (L) 40 - 240 U/L Specimen Performing Laboratory Blood - Arm, [facility], [facility] [place] [address] [place] [address] Bilirubin, adult total (03/08/2017 8:00 AM) Component Value Ref Range Total Bilirubin 0.3 0.1 - 1.2 mg/dL Specimen Performing Laboratory Blood - Arm, [facility], [facility] [address] [place] [phone] Basic Metabolic Panel (03/08/2017 8:00 AM) Component [...] PATIENTS. Specimen Performing Laboratory Blood - Arm, [facility], [facility] [address] [facility] [place] [address] XR foot 3 views left (02/25/2017 8:32 [...] MD Report Verified Date/Time:02/25/2017 08:37:49 Reading Location: [address] Body Reading Room Procedure Note [...] Report Verified Date/Time: 02/25/2017 08:37:49 Reading Location: [facility] C013Y CT Body Reading Room ECG [...] normal. ST segments normal. T waves normal. Belen is normal. Left sided lead use: Posterior [...] Performing Laboratory Urine - Urine, Clean Catch [facility] [address] [place] [address] Narrative DRUGCUTOFF CONC. Cocaine 300 ng/mL Jzhivamtxly66 ng/mL Fucyojujhtyyho993 ng/mL Barbiturate 200 ng/mL Vwwcdwpeeozeo46 ng/mL Fukrcd559 ng/mL Methadone 300 ng/mL Amphetamine/ 1000 ng/mL Methamphetamine This assay provides an unconfirmed qualitative test result for the clinical management of patients in emergency situations. Chain of custody not maintained. Some rvjw-btu-xniymyg medications, as well as adulterants, may cause inaccurate results. Clinical correlation should be applied. A more comprehensive drug screen or confirmation of a detected drug may be performed upon request. POC-Glucose meter (01/19/2017 8:04 PM)Only the most recent of2 resultswithin the time period is included. Component Value Ref Range POC-Glucose Meter 241 (H)Comment: TESTED AT [facility] [address] [facility] 70 - 110 mg/dL [facility] [address] Specimen Performing Laboratory Blood [address] [address] Blood gas, venous (01/19/2017 7:55 PM) Component [...] Specimen Performing Laboratory Blood - Arm, Right [facility] [address] [place] [address] Ketones, blood (01/19/2017 7:55 PM) Component Value Ref Range Ketones, Blood 0.0 <0.4 mmol/L Specimen Performing Laboratory Blood - Arm, Right [facility] [address] [place] [address] XR chest 1 view portable / bedside (01/19/2017 7:51 PM) Specimen Performing Laboratory [facility] RIS Narrative FINAL REPORT Clinical History: cp Comparison Study: None Findings:The heart and lungs are within normal limits.The pleural spaces are clear.No significant bony or soft tissue abnormalities are seen. Impression: No active cardiopulmonary disease. Signed: Carlos Severino MD Report Verified Date/Time:01/19/2017 19:59:25 Reading Location: [address] Consult Reading Room Procedure Note Interface, External Ris In - 01/19/2017 8:01 PM CDT FINAL REPORT Clinical History: cp Comparison Study: None Findings: The heart and lungs are within normal limits. The pleural spaces are clear. No significant bony or soft tissue abnormalities are seen. Impression: No active cardiopulmonary disease. Signed: Carlos Severino MD Report Verified Date/Time: 01/19/2017 19:59:25 Reading Location: [address] Consult Reading Room Urinalysis w/Microscopic (01/19/2017 7:36 PM)Only the most recent of2 resultswithin the time period is included. Component Value Ref Range Color, UA Light Yellow Clarity, UA Clear Specific [place], UA 1.016 1.001 - 1.035 pH, UA [...] Performing Laboratory Urine - Urine, Clean Catch [facility] [address] [place] [address] Troponin I (01/19/2017 7:33 PM) Component Value Ref Range Troponin I <0.01 0.00 - 0.15 ng/mL Specimen Performing Laboratory Blood - Line, [facility] [address] [place] [address] Narrative Troponin I (TnI) levels must be [...] FEU Specimen Performing Laboratory Blood - Line, [facility] [address] [place] [address] Narrative Intended Use: The D-Dimer Assay can [...] pg/mL Specimen Performing Laboratory Blood - Line, [facility] [address] [place] [address] Creatine Kinase (CK), Total and MB (01/19/2017 7:33 PM) Component Value Ref Range Total CK 57 30 - 300 U/L CK-MB 0.6 0.0 - 4.9 ng/mL MB Relative Index 1.1 % Specimen Performing Laboratory Blood - Line, [facility] [address] [place] [address] Narrative CK-MB Reference Range: <5 Normal 5-10 [...] Specimen Performing Laboratory Blood - Line, Venous [facility] [address] [place] [address] ECG 12 lead (01/19/2017 6:40 PM) Specimen Performing Laboratory [facility] Narrative Ventricular Rate 95 BPM Atrial Rate 95 BPM P-R Interval 132 ms QRS Duration 72 ms Q-T Interval 334 ms QTC Calculation(Bazett) 419 ms P Belen 69 degrees R Belen 49 degrees T Belen 52 degrees Normal sinus rhythm with sinus arrhythmia Nonspecific ST and T wave abnormality Abnormal ECG No previous ECGs available Procedure Note Interface, External Ris In - 01/20/2017 12:01 PM CDT Ventricular Rate 95 BPM Atrial Rate 95 BPM P-R Interval 132 ms QRS Duration 72 ms Q-T Interval 334 ms QTC Calculation(Bazett) 419 ms P Belen 69 degrees R Belen 49 degrees T Belen 52 degrees Normal sinus rhythm with sinus arrhythmia Nonspecific ST and T wave abnormality Abnormal ECG No previous ECGs available CT spine cervical without IV contrast (01/15/2017 5:49 PM) Specimen Performing Laboratory [facility] Narrative FINAL REPORT EXAMINATION: CERVICAL SPINE [...] MD Report Verified Date/Time:01/15/2017 18:25:26 Reading Location: [address] Reading Room Procedure Note Interface, External [...] Report Verified Date/Time: 01/15/2017 18:25:26 Reading Location: [address] Reading Room brain without IV contrast (01/15/2017 5:49 PM) Specimen Performing Laboratory [facility] Narrative FINAL REPORT EXAMINATIONNONCONTRAST HEAD CT [...] MD Report Verified Date/Time:01/15/2017 18:14:13 Reading Location: [address] Reading Room Procedure Note Interface, External [...] Report Verified Date/Time: 01/15/2017 18:14:13 Reading Location: [address] Reading Room spine lumbar 2 or [...] MD Report Verified Date/Time:12/12/2016 23:13:07 Reading Location: [address] Reading Room Procedure Note Interface, External [...] Report Verified Date/Time: 12/12/2016 23:13:07 Reading Location: [address] Reading Room spine thoracic 2 views [...] MD Report Verified Date/Time:12/12/2016 23:13:07 Reading Location: [address] Reading Room Procedure Note Interface, External [...] Report Verified Date/Time: 12/12/2016 23:13:07 Reading Location: [address] Reading Room elbow 3 views min right (09/25/2016 3:35 PM) Specimen Performing Laboratory [facility] RIS Impressions : No radiographic abnormalities are visualized in the right elbow. Signed: Kajal Dahl MD Report Verified Date/Time:09/25/2016 15:42:48 Reading Location: [facility] [address] [place] [address] Reading Room Narrative FINAL REPORT RIGHT ELBOW [...] Report Verified Date/Time: 09/25/2016 15:42:48 Reading Location: [facility] B1 C013T Transitional Reading Room after 09/02/2016
--- OUTSIDE RECORDS SUMMARY | 2017-09-03 17:13 | XMS REPORT | Clinical Summary ---
:1980 Author Organization [facility] [facility] Address [address] [place] [address] Care Team Providers Name Role Phone Asked, [...] (Primary Dx) 04/04/2017 - Emergency General Internal Scientologist, Nadim Bin, Other chest pain 04/05/2017 Medicine [...] Andrew Gallegos Sprain of left ankle, Danny, BRAND DEVELOPMENT MANAGER-C unspecified ligament, Alfredo Story initial encounter DO Harinder (Primary Dx) 01/23/2017 - Emergency Emergency Medicine El, Andrew Sprain of left ankle, 01/24/2017 Danny, BRAND DEVELOPMENT MANAGER-C unspecified ligament, Caleb Obando initial encounter MD Ariel (Primary Dx) 01/19/2017 Emergency Emergency Medicine Kanika Iglesias, Neck pain ( Primary Dx) 01/01/2017 Emergency Emergency Medicine Ezequiel Min H, Nausea vomiting and diarrhea (Primary Dx); Right flank pain 12/16/2016 - Emergency Emergency Medicine Andrew Gallegos Sprain of left knee , unspecified ligament, initial encounter (Primary Dx); 12/17/2016 Danny, BRAND DEVELOPMENT MANAGER-C Strain of left hip and thigh, initial [...] Emergency Medicine Andrew Gallegos Intractable episodic Danny, BRAND DEVELOPMENT MANAGER-C headache, unspecified Heiberger, Ramón headache type (Primary MD Giacomo Dx) 11/04/2016 Emergency Emergency Medicine Andrew Gallegos 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, Danny, BRAND DEVELOPMENT MANAGER-C unspecified ligament, Abdirahman Montesinos initial encounter MD Randy (Primary Dx) 10/21/2016 Emergency Emergency Medicine Kanika Iglesias, Acute bilateral low MD back pain without sciatica (Primary Dx) 09/19/2016 Emergency Emergency Medicine Jazzy Schroeder PA-C Islam, Nadim Bin, MD 09/04/2016 Emergency Emergency Medicine Tami Wyman, Chest pain, unspecified MD type (Primary Dx) after 09/02/2016 Immunizations Name Dates Previously Given Next Due [...] Results for this COMPLETE W MMODE AM C 13 CATAPULT OPERATOR procedure are in SPECTRAL COLOR DOPPLER the results (38817) section. after 09/02/2016 Results ECG ED Preliminary Interpretation - NOT AN ORDER (08/30/2017 9:01 PM)Only the most recent of8 resultswithin the time period is included. Narrative Isra Fairchild DO 08/31/20171:36 AM ECG ED Preliminary Interpretation - Not an Order Performed by: ISRA FAIRCHILD Authorized by: ISRA FAIRCHILD ECG reviewed by ED Physician in the absence of a data abstractor: yes Interpretation: Interpretation: normal Rate: ECG rate:96 ECG rate assessment: normal Rhythm: Rhythm: sinus rhythm Ectopy: Ectopy: none QRS: QRS axis:Normal Conduction: Conduction: normal ST segments: ST segments:Normal T waves: T waves: normal XR Chest 2 Vw (08/30/2017 8:33 PM)Only the most recent of2 resultswithin the time period is included. Specimen Performing Laboratory [facility] [address] [place] [address] Narrative EXAMINATION: XR CHEST 2 VW CLINICAL HISTORY: Cough COMPARISON:08/19/2017 chest x-ray. IMPRESSION: The lungs are clear. No pleural effusion or pneumothorax. The cardiomediastinal silhouette is normal. No acute osseous abnormalities. [facility]-[id number] Procedure Note Interface, Radiology Results Incoming - 08/30/2017 8:42 PM CDT EXAMINATION: XR CHEST 2 VW CLINICAL HISTORY: Cough COMPARISON: 08/19/2017 chest x-ray. IMPRESSION: The lungs are clear. No pleural effusion or pneumothorax. The cardiomediastinal silhouette is normal. No acute osseous abnormalities. [facility]-[id number] ECG 12 lead (08/30/2017 7:41 PM)Only the most recent of11 resultswithin the time period is included. Component Value Ref Range Ventricular rate 96 Atrial rate 96 HI interval 134 QRSD interval 80 QT interval 350 QTC interval 442 P axis 1 49 QRS axis 1 59 T wave axis 48 EKG impression Normal sinus rhythm with sinus arrhythmia-Normal ECG-In automated comparison with ECG of 19-AUG-2017 19:41,-No significant change was found- Specimen Performing Laboratory [facility] [address] [place] [address] XR Hand 3+ Vw Left (08/20/2017 11:01 PM) Specimen Performing Laboratory [facility] [address] [place] [address] Narrative Examination:XR HAND 3VW LEFT Clinical History: trauma and pain Comparison: None. Findings: 3 views of the left hand are obtained. No acute fracture or dislocation is seen. The joint spaces are within normal limits. Soft tissues are unremarkable. IMPRESSION: 1. No acute abnormality identified in the left hand. [facility]-[id number] Procedure Note Interface, Radiology Results Incoming - 08/20/2017 11:26 PM CDT Examination: XR HAND 3 VW LEFT Clinical History: trauma and pain Comparison: None. Findings: 3 views of the left hand are obtained. No acute fracture or dislocation is seen. The joint spaces are within normal limits. Soft tissues are unremarkable. IMPRESSION: 1. No acute abnormality identified in the left hand. [facility]-[id number] Estimated GFR (08/19/2017 9:10 PM)Only the most [...] and Americans. Specimen Performing Laboratory Plasma specimen [facility] DEPARTMENT OF PATHOLOGY AND [facility] MEDICINE [address] [place] [address]. [place] [address] Troponin (08/19/2017 9:10 PM)Only the most recent [...] myocardial injury. Specimen Performing Laboratory Plasma specimen [facility] DEPARTMENT OF PATHOLOGY AND [facility] MEDICINE [address] [place] [address]. [place] [address] Urine drugs of abuse screen (08/19/2017 9:10 [...] Comment: Drug screen minimum concentration of detectability Bibwokbmnsot0271 ng/mL Barbiturates 200 ng/mL Pjfqakofnxgauac386 ng/mL Nzsgtmh695 ng/mL Masfktuhf114 ng/mL Jyhound833 ng/mL Phencyclidine 25 ng/mL Zbnhckicqdqw52 ng/mL Rtgihbxqqz7225 ng/mL Negative test results indicates presumptive evidence of lack of clinically significant drug concentration in this urine specimen. Positive test results are presumptive evidence of clinically significant drug concentration in this urine specimen. Testing performed for medical purposes only. Specimen Performing Laboratory Urine [facility] DEPARTMENT PATHOLOGY AND [address] [address] D-dimer (08/19/2017 9:10 PM)Only the most recent [...] sepsis, and malignancies. Specimen Performing Laboratory Blood [facility] DEPARTMENT OF PATHOLOGY AND [facility] MEDICINE [address] [place], [place] [address] CBC with platelet and differential (08/19/2017 9:10 [...] - 1.0 % Specimen Performing Laboratory Blood [facility] DEPARTMENT OF PATHOLOGY AND [address] [address] B natriuretic peptide (08/19/2017 9:10 PM)Only the most recent of6 resultswithin the time period is included. Component Value Ref Range BNP 6 0 - 100 pg/mL Specimen Performing Laboratory Blood [facility] [place] [address] Creatine kinase, total (CPK) (08/19/2017 9:10 PM)Only the most recent of5 resultswithin the time period is included. Component Value Ref Range Creatine kinase 55 39 - 308 U/L Specimen Performing Laboratory Plasma specimen [facility] [place] [address] Comprehensive metabolic panel (08/19/2017 9:10 PM)Only the [...] 1.2 mg/dL Specimen Performing Laboratory Plasma specimen [facility] DEPARTMENT OF PATHOLOGY AND GENOMIC MEDICINE [address] [place] [address] XR Chest 1 Vw Portable (08/19/2017 8:21 PM)Only the most recent of5 resultswithin the time period is included. Specimen Performing Laboratory [address] [address] Narrative EXAMINATION:XR CHEST 1 VW PORTABLE CLINICAL HISTORY: Chest Pain COMPARISON:fall IMPRESSION: No radiographic evidence for acute cardiopulmonary process. Cardiomediastinal silhouette is within normal limits of size. No focal or confluent airspace consolidation is seen on the single AP view to suggest acute pneumonia. No sizable pleural effusion. No pneumothorax identified. No acute osseous abnormalities are visualized. [facility]-[id number] Procedure Note Interface, Radiology Results - 08/19/2017 [...] identified. No acute osseous abnormalities are visualized. [facility]-[id number] CT Cervical Spine Wo Contrast (08/16/2017 10:21 PM)Only the most recent of2 resultswithin the time period is included. Specimen Performing Laboratory [facility] [address] [place] [address] Narrative EXAMINATION: CT CERVICAL SPINE WO CONTRAST [...] acute osseous abnormality of the cervical spine. [facility]-[id number] Procedure Note Interface, Radiology Results - 08/16/2017 [...] acute osseous abnormality of the cervical spine. [facility]-[id number] CT Head Wo Contrast (08/16/2017 10:21 PM)Only the most recent of3 resultswithin the time period is included. Specimen Performing Laboratory [facility] [address] [employer] [place] [address] Narrative EXAMINATION:CT HEAD WO CONTRAST CLINICAL HISTORY:s [...] No CT evidence of acute intracranial abnormality. [id number] Procedure Note [facility], Radiology Results Incoming - 08/16/2017 10:30 PM [...] No CT evidence of acute intracranial abnormality. [id number] CT Lumbar Spine Wo Contrast (08/08/2017 10:45 AM) Specimen Performing Laboratory [facility] [address] [employer] [place] [address] Narrative EXAMINATION:CT LUMBAR SPINE WO CONTRAST CLINICAL [...] compression No acute bony abnormality lumbar spine [id number] Procedure Note Hm Interface, Radiology Results Incoming [...] compression No acute bony abnormality lumbar spine [id number] CT Thoracic Spine Wo Contrast (08/08/2017 10:45 AM) Specimen Performing Laboratory [facility] [address] [place] [address] Narrative EXAMINATION:CT THORACIC SPINE WO CONTRAST CLINICAL HISTORY:fall from horseupper back pain COMPARISON:None. TECHNIQUE: CT imaging was performed with iterative reconstruction technique and /or automated exposure control to reduce radiation dose. IMPRESSION: Thoracic spine alignment is within normal limits. Mild multilevel endplate degenerative changes. No moderate or severe canal/foraminal narrowing. No fractures or aggressive bony lesions. [id number] Procedure Note Interface, Radiology Results Incoming - [...] narrowing. No fractures or aggressive bony lesions. [facility]-[id number] POC glucose (04/05/2017 8:24 AM)Only the most recent of4 resultswithin the time period is included. Component Value Ref Range POC glucose 125 (H) 65 - 99 mg/dL Comment: Meter ID: [id number] Continuous Pickling Line Pickler: Daljit Gonsales Specimen Performing Laboratory [facility] DEPARTMENT OF PATHOLOGY AND GENOMIC MEDICINE [address] [place] [address] Echocardiogram complete w contrast and 3D if [...] 61.55 % LV EF,BP 64.76 % Tal Burr,d A2C 9.16 cm Tal Burr,d A4C 8.30 cm Tal Burr,s A2C 7.41 cm Tal Burr,s A4C 7.15 cm LV,s 3.90 cm LV [...] diam s 4.10 cm Aortic Root 3.63 HI End Jung Grad 7.61 HI End Diat Dwight 1.38 D E excurs 2.00 E f slope 0.07 E prime lat 0.14 E candido sept 0.10 PV acc T slope 7.90 Specimen Performing Laboratory [facility] [address] [place] [address] Narrative The left ventricle chamber size is [...] SeeBelow Comment: Total Cholesterol (mg/dL) <200 Desirable 426-142Ecmxylahss-vfab >=240High Triglycerides (mg/dL) <150 Normal 313-226Rromxzokud-datn 200-499High >=500Very high HDL Cholesterol (mg/dL) <40Low (male) <40Low (female) LDL Cholesterol (mg/dL) <100 Optimal 100-129Near or above optimal 899-047Ryensoygcb-pyed 160-189High >=190Very high Risk Catergories that modify [...] (>=200 mg/dL) Specimen Performing Laboratory Plasma specimen [facility] DEPARTMENT OF PATHOLOGY AND GENOMIC MEDICINE [address] [place] [address] Bedside glucose (04/04/2017 10:30 PM)Only the most [...] Anti-Xa 0.3-0.7 U/ml. Specimen Performing Laboratory Blood [facility] DEPARTMENT OF PATHOLOGY AND GENOMIC MEDICINE [address] [place] [address] Prothrombin time with INR (04/04/2017 2:58 PM)Only [...] vein thrombosis/pulmonary embolism. Specimen Performing Laboratory Blood [facility] OF PATHOLOGY AND [facility] [id number] [place] [address] [place] [address] Basic metabolic panel (03/02/2017 6:55 AM)Only the [...] 10.2 mg/dL Specimen Performing Laboratory Plasma specimen [facility] PATHOLOGY [address] [place] [address] Urinalysis screen and microscopy, with reflex to [...] UA None seen Specimen Performing Laboratory Urine [facility] DEPARTMENT OF PATHOLOGY AND GENOMIC MEDICINE [address] [place] [address] Urine culture (03/01/2017 10:42 PM)Only the most recent of2 resultswithin the time period is included. Component Value Ref Range Urine culture SEE COMMENTComment: Bacteriuria screen negative. Specimen Performing Laboratory Urine [facility] DEPARTMENT OF PATHOLOGY AND GENOMIC MEDICINE [address] [place] [address] CT Abdomen Pelvis W Contrast (02/17/2017 1:00 PM) Specimen Performing Laboratory [facility] [address] [place] [address] Narrative EXAMINATION:CT ABDOMEN PELVIS W CONTRAST CLINICAL [...] of stool is present in the colon [id number] Procedure Note Interface, Radiology Results Incoming - [...] of stool is present in the colon [id number] US Gallbladder (02/17/2017 12:26 PM) Specimen Performing Laboratory [facility] [address] [place] [address] Narrative EXAMINATION:US GALLBLADDER CLINICAL HISTORY: ruq abd [...] to rule out choledocholithiasis if clinical indicated. [facility][id number] Procedure Note Interface, Radiology Results Incoming - [...] to rule out choledocholithiasis if clinical indicated. [facility]-[id number] Lipase level (02/17/2017 11:45 AM)Only the most recent of2 resultswithin the time period is included. Component Value Ref Range Lipase 20 13 - 60 U/L Specimen Performing Laboratory Plasma specimen [facility] DEPARTMENT OF PATHOLOGY AND GENOMIC MEDICINE [address] [place] [place] [address] XR Ankle 3+ Vw Left (02/05/2017 10:25 PM)Only the most recent of3 resultswithin the time period is included. Specimen Performing Laboratory [facility] [address] [place] [address] Narrative EXAMINATION:XR ANKLE 3VW LEFT CLINICAL HISTORY:BONE PAINANKLE COMPARISON:01/24/2017. IMPRESSION: No definite fracture or dislocation of the left ankle. Soft tissue swelling about the ankle. [facility]-[id number] Procedure Note Interface, Radiology Results Incoming - 02/05/2017 10:33 PM CDT EXAMINATION: XR ANKLE 3 VW LEFT CLINICAL HISTORY: BONE PAIN ANKLE COMPARISON: 01/24/2017. IMPRESSION: No definite fracture or dislocation of the left ankle. Soft tissue swelling about the ankle. [facility]-[id number] XR Foot 3+ Vw Left (01/24/2017 12:30 AM)Only the most recent of2 resultswithin the time period is included. Specimen Performing Laboratory [facility] [address] [place] [address] Narrative Examination:XR FOOT 3VW LEFT Clinical History: BONE PAINFOOT Comparison: None. Findings: 3 views of the left foot are obtained. No acute fracture or dislocation is seen. The joint spaces are within normal limits. Soft tissues are unremarkable. Posterior calcaneal spurring is noted. IMPRESSION: 1. No acute abnormality identified in the left foot. [facility]-[id number] Procedure Note Interface, Radiology Results Incoming - [...] acute abnormality identified in the left foot. [facility]-[id number] CT Renal Stone Protocol (01/01/2017 7:51 AM) Specimen Performing Laboratory [facility] [address] [place] [address] Narrative EXAMINATION:CT RENAL STONE PROTOCOL CLINICAL HISTORY:R [...] 4. The appendix has no inflammatory change. [id number] Procedure Note Hm Interface, Radiology Results Incoming [...] 4. The appendix has no inflammatory change. [facility][id number] Hepatic function panel (01/01/2017 7:36 AM) Component [...] 50 U/L Specimen Performing Laboratory Plasma specimen [facility] DEPARTMENT OF PATHOLOGY AND GENOMIC MEDICINE [address] [place] [address] XR Pelvis 1 Or 2 Vw (12/17/2016 12:47 AM) Specimen Performing Laboratory [facility] [address] [place] [address] [facility] XR PELVIS 1 OR 2 VW CLINICAL INDICATION:JOINT PAINHIP COMPARISON:None. IMPRESSION: There is no acute fracture or dislocation. Joint spaces are maintained and there is no evidence of significant arthritis. Osseous mineralization is normal. [facility]-[id number] Procedure Note Interface, Radiology Results Incoming - 12/17/2016 12:53 AM CDT XR PELVIS 1 OR 2 VW CLINICAL INDICATION: JOINT PAIN HIP COMPARISON: None. IMPRESSION: There is no acute fracture or dislocation. Joint spaces are maintained and there is no evidence of significant arthritis. Osseous mineralization is normal. [facility]-[id number] XR Femur 2 Vw Left (12/17/2016 12:46 AM) Specimen Performing Laboratory [facility] [address] [place] [address] Narrative XR FEMUR 2 VW LEFT CLINICAL INDICATION:thigh pain after fall COMPARISON:None. IMPRESSION: There is no acute fracture or dislocation. Joint spaces are maintained and there is no evidence of significant arthritis. Osseous mineralization is normal. [facility]-[id number] Procedure Note Interface, Radiology Results Incoming - 12/17/2016 12:52 AM CDT XR FEMUR 2 VW LEFT CLINICAL INDICATION: thigh pain after fall COMPARISON: None. IMPRESSION: There is no acute fracture or dislocation. Joint spaces are maintained and there is no evidence of significant arthritis. Osseous mineralization is normal. [facility]-[id number] XR Knee 4+ Vw Left (12/17/2016 12:46 AM) Specimen Performing Laboratory [facility] [address] [place] [address] Narrative XR KNEE 4VW LEFT CLINICAL INDICATION:BONE PAINKNEE COMPARISON:None. IMPRESSION: There is no acute fracture or dislocation. There is no knee joint effusion. Joint spaces are maintained and there is no evidence of significant arthritis. Osseous mineralization is normal. [facility]-[id number] Procedure Note Interface, Radiology Results - 12/17/2016 12:51 AM CDT XR KNEE 4 VW LEFT CLINICAL INDICATION: BONE PAIN KNEE COMPARISON: None. IMPRESSION: There is no acute fracture or dislocation. There is no knee joint effusion. Joint spaces are maintained and there is no evidence of significant arthritis. Osseous mineralization is normal. [facility]-[id number] XR Shoulder 2+ Vw Left (12/08/2016 9:33 AM) Specimen Performing Laboratory [facility] [address] [place] [address] Narrative EXAMINATION:XR SHOULDER 2VW LEFT CLINICAL HISTORY:paininjury COMPARISON:None available at this time. IMPRESSION: 1. No fracture, malalignment, or osseous destructive lesion of the left shoulder. 2. Joint spaces are maintained. No significant degenerative changes. 3. Soft tissues are unremarkable. [facility]-[id number] Procedure Note Interface, Radiology Results Incoming - 12/08/2016 9:38 AM CDT EXAMINATION: XR SHOULDER 2 VW LEFT CLINICAL HISTORY: pain injury COMPARISON: None available at this time. IMPRESSION: 1. No fracture, malalignment, or osseous destructive lesion of the left shoulder. 2. Joint spaces are maintained. No significant degenerative changes. 3. Soft tissues are unremarkable. [facility]-[id number] Magnesium level (11/07/2016 6:20 PM) Component Value Ref Range Magnesium 1.9 1.6 - 2.6 mg/dL Specimen Performing Laboratory Plasma specimen [facility] DEPARTMENT OF PATHOLOGY AND GENOMIC MEDICINE [address] [place] [address] XR Knee 4+ Vw Right (11/04/2016 1:11 AM) Specimen Performing Laboratory [facility] [address] [place] [address] Narrative XR KNEE 4VW RIGHT CLINICAL INDICATION:BONE PAINKNEE COMPARISON:None. IMPRESSION: There is no acute fracture or dislocation. There is no knee joint effusion. Joint spaces are maintained and there is no evidence of significant arthritis. Osseous mineralization is normal. [facility]-[id number] Procedure Note Interface, Radiology Results Incoming - 11/04/2016 2:51 AM CDT XR KNEE 4 VW RIGHT CLINICAL INDICATION: BONE PAIN KNEE COMPARISON: None. IMPRESSION: There is no acute fracture or dislocation. There is no knee joint effusion. Joint spaces are maintained and there is no evidence of significant arthritis. Osseous mineralization is normal. [facility]-[id number] after 09/02/2016
--- OUTSIDE RECORDS SUMMARY | 2017-09-03 17:14 | XMS REPORT ---
:1980 [facility] [address] [place] [address] Dr. Dao [address] [place] [id number] Care Team Providers Name Role Phone DR [...] ID 2017-08-19 2017-08-19 Emergency E ROCAEL B[facility] [id number] 15:33:00 18:45:00 2017-08-11 2017-08-11 Emergency E JEMMA CRAVEN [facility] [id number] 11:55:00 13:29:00 2017-04-27 2017-04-27 Emergency E ROSANA [facility] [id number] 08:54:00 10:01:00 USMAN 2017-04-20 2017-04-20 Outpatient E [facility] [id number] 11:00:00 14:40:00 EBONY 2016-12-12 2016-12-12 Emergency E SHEIKH [facility] [id number] 20:40:00 21:38:00 WASIM Results Test Description Test [...] (test code=60A) 90 IU/L 73-393 COMPREHENSIVE METABOLIC [id number] 16:53:00 Test Item Value Reference Range Comments [...] (test code=31A) 15 IU/L <=78 DRUGS OF [id number] 16:50:00 Test Item Value Reference Range Comments [...] ng/mL Opiates 2000 ng/mL PRO TIME AND [id number] 16:45:00 Test Item Value Reference Range Comments [...] or LMW Heparin. Order Code is ANTI-XA [id number] 16:39:00 Test Item Value Reference Range Comments [...] MORPH (test code=RBCMOR) NORMAL XR SPINE CERVICAL [id number] 13:05:14Cervical spine, 6 viewsLocation code: K3Kiwqumdd history: M54.2: CERVICALGIAComments: AP, oblique, open mouth odontoid and lateral views of the cervicalspine demonstrate no displaced fracture or malalignment. Intervertebral discspaces are maintained. The oblique projections demonstrate no significantforaminal narrowing. The soft tissues are unremarkable. Impression: No acute abnormality.XR FOOT LEFT 1 OR 2 [id number] 09:35:56EXAMINATION: XR ANKLE LEFT 2 VIEW, [...] Articular spaces are wellmaintained.XR ANKLE LEFT 2 [id number] 09:35:56EXAMINATION: XR ANKLE LEFT 2 VIEW, XR [...] spaces are wellmaintained.MRA NECK W & WO [id number] 14:42 :31MRA OF THE CAROTIDS WITHOUT CONTRASTHISTORY: [...] bilateral common or internalcarotid arteries.MRA HEAD W/O [id number] 14: 28:18MRA OF THE [place] WITHOUT CONTRASTHISTORY: Near syncopal episodeTECHNIQUE: [...] No aneurysmal dilatation.MRI BRAIN W/ AND W/O [id number] 13:51:27MRI brain with and without contrastLocation code: S7Lzxvjjgx history: Near syncopeTechnique: Multiplanar multisequence MR imaging [...] with and without contrast.GLUCOMETER GLUCOSE- LAB USE [id number] 11:46:00 Test Item Value Reference Range Comments GLUCOMETER (test code=GMG) 161 mg/dL 70-100 CLEANED METERMeter ID: [id number]: [id number] WILFRED RAJU XR ELBOW LEFT COMPLETE 3 [id number] 10:38:15Right Elbow, 3 viewsLocation Code: [id number] HISTORY: Injury, fallCOMMENTS: AP, lateral, and oblique views of the right elbow demonstrate noacute fracture or malalignment. The soft tissues are unremarkable.IMPRESSION: No acute radiographic abnormality.XR CHEST 2 [id number] 10:38:03PA and lateral chest, 2 views.Location code: [id number] HISTORY: Dizziness, fallCOMPARISON: NoneCOMMENTS: The lungs are clear and well inflated. The costophrenic angles aresharp. The cardiomediastinalsilhouette is unremarkable. The bones are intact.IMPRESSION: No acute abnormalityXR SHOULDER LEFT 3 [id number] 10:37:47Left shoulder, 3 viewsLocation Code: [id number] HISTORY: Fall, injury,COMMENTS: AP views in internaland external rotation along with a transscapularY view of the left shoulder were obtained. There is no acute fracture ormalalignment. The soft tissues are unremarkable.IMPRESSION: No acute abnormality.XR HUMERUS LEFT AP & amp; [id number] 10:37:28Left humerus, 2 viewsLocation Code: I4Qtvtyydw history: Trauma, injury, pain Comment: AP and lateralviews of the left humerus demonstrate no displacedfracture or malalignment. The soft tissues are unremarkable.Impression:No acute radiographic abnormality.[id number] 10: 36:00 Test Item Value Reference Range Comments D-DIMER (test code=DDI) <200 ng/mL D-DU 0-234 D-DIMER COMMENT (test *Level to rule out DVT or PE: code=DDCOM) <235 ng/mL D-DU* COMPREHENSIVE METABOLIC [id number] 10:36:00 Test Item Value Reference Range Comments [...] ALT (test code=31A) 18 IU/L <=78 CARDIAC [id number] 10:19:00 Test Item Value Reference Range Comments TROPONIN I (test code=A84) <0.015 ng/mL 0.000-0.045 CKMB (test code=A49) <1.0 ng/mL <=3.6 CPK (test code=32A) 38 IU/L 39-308 PRO TIME AND [id number] 10:12:00 Test Item Value Reference Range Comments [...] MORPH (test code=RBCMOR) NORMAL CT HEAD W/O [id number] 10:02:40CT brain without contrastLocation code: [id number] HISTORY: Dizziness, headache COMPARISON: None.TECHNIQUE: Routine unenhanced [...] code=60A) 81 IU/L 73-393 CBC (INCLUDES AUTOMATED DIFFERENTIAL)*[id number] 13:47:00 Test Item Value Reference Range Comments [...] NO RBC MORPH (test code=WRBCMOR) NORMAL CT, [id number] 09:15:00Reason for exam:->ABDOMINAL PAINReason for exam :->DIARRHEAReason [...] nonspecific small bowel enteritis as above. Signed: Brcye Pool MDReport Verified Date/Time: 03/08/2017 09:15:05 Reading Location: [facility] B1 C013X Ortho Consult Reading Room BASIC METABOLIC [id number] 08:21:00 Test Item Value Reference Range Comments SODIUM (BEAKER) (test 138 meq/L 135-148 hcdc=607) POTASSIUM (BEAKER) (test 3.9 meq/L 3.6-5.5 fmow=083) CHLORIDE (BEAKER) (test 108 meq/L 98-106 lxof=194) CO2 (BEAKER) (test 24 meq/L 24-32 qteu=601) BLOOD UREA NITROGEN 7 mg/dL 10-26 (BEAKER) (test moep=425) CREATININE (BEAKER) (test 0.56 mg/dL 0.50-1.20 yxgj=081) GLUCOSE RANDOM (BEAKER) 138 mg/dL 70-110 (test lwwx=680) CALCIUM (BEAKER) (test 8.9 mg/dL 8.5-10.5 brad=643) EGFR (BEAKER) (test 163 mL/min/1.73 sq m ESTIMATED GFR IS NOT ajls=1542) ACCURATE CREATININE CLEARANCE IN PREDICTING GLOMERULAR FILTRATION RATE. ESTIMATED GFR IS NOT APPLICABLE FOR DIALYSIS PATIENTS. AST (SGOT)2017-03-08 08:18:00 Test Item Value Reference Range Comments AST (SGOT) (BEAKER) (test zfuj=861) 11 U/L 5-40 ALT (SGPT)2017-03-08 08:18:00 Test Item Value Reference Range Comments ALT (SGPT) (BEAKER) (test avhe=167) 21 U/L 5-50 [id number] 08:18:00 Test Item Value Reference Range Comments LIPASE (BEAKER) (test wlln=718) 37 U/L 40-240 BILIRUBIN, ADULT [id number] 08:16:00 Test Item Value Reference Range Comments BILIRUBIN TOTAL (BEAKER) (test illn=798) 0.3 mg/dL 0.1-1.2 CBC W/PLT COUNT & AUTO [id number] 08:13:00 Test Item Value Reference Range Comments WHITE BLOOD CELL COUNT (BEAKER) (test 13.1 10e3/ L 4.0-10.0 fnkj=856) RED BLOOD CELL COUNT (BEAKER) (test vwbi=901) 4.85 10e6/ L 4.20-5.80 HEMOGLOBIN (BEAKER) (test agyw=413) 13.9 g/dL 13.0-16.8 HEMATOCRIT (BEAKER) (test dyav=949) 42.8 % 40.0-50.0 MEAN CORPUSCULAR VOLUME (BEAKER) (test 88.3 fL 82.0-98.0 nhts=876) MEAN CORPUSCULAR HEMOGLOBIN (BEAKER) (test 28.6 pg 27.0-33.0 swrs=133) MEAN CORPUSCULAR HEMOGLOBIN CONC (BEAKER) 32.4 g/dL 32.0-36.0 (test pdhz=777) RED CELL DISTRIBUTION WIDTH (BEAKER) (test 13.2 % 10.3-14.2 ckvh=802) PLATELET COUNT (BEAKER) (test cwmt=282) 366 10e3/ L 150-430 MEAN PLATELET VOLUME (BEAKER) (test qmfq=760) 6.9 fL 6.5-10.5 NEUTROPHILS RELATIVE PERCENT (BEAKER) (test 77 % unbt=183) LYMPHOCYTES RELATIVE PERCENT (BEAKER) (test 12 % mdui=838) MONOCYTES RELATIVE PERCENT (BEAKER) (test 6 % vikv=224) EOSINOPHILS RELATIVE PERCENT (BEAKER) (test 4 % phnu=287) BASOPHILS RELATIVE PERCENT (BEAKER) (test 1 % vuxi=015) NEUTROPHILS ABSOLUTE COUNT (BEAKER) (test 10.10 10e3/ L 1.80-8.00 qbkl=061) LYMPHOCYTES ABSOLUTE COUNT (BEAKER) (test 1.61 10e3/ L 1.48-4.50 rupo=287) MONOCYTES ABSOLUTE COUNT (BEAKER) (test 0.83 10e3/ L 0.00-1.30 etgk=924) EOSINOPHILS ABSOLUTE COUNT (BEAKER) (test 0.46 10e3/ L 0.00-0.50 qxff=791) BASOPHILS ABSOLUTE COUNT (BEAKER) (test 0.10 10e3/ L 0.00-0.20 jnkm=393) RAD, FOOT, MIN 3 VIEWS, [id number] 08:37:00Reason for exam:->FOOT INJURYleft foot injury , [...] MDReport Verified Date/Time: 02/25/2017 08:37:49 Reading Location: [facility] C013Y CT Body Reading Room CT ABDOMEN AND PELVIS WITH CONTRAST*WW*2017-02-25 03:54:12CT ABDOMEN AND PELVIS WITH CONTRAST*WW* Location:[address] hours services are provided 02/25/2017 2:48 AMIndication:RLQ pain.Comparison: Not availableTechnique: Axial CT of the abdomen and pelvis followingthe bolusadministration of nonionic intravenous contrast. Sagittal and coronalreformatted images areprovided for interpretation. All CT scans at [facility] use dose modulation, iterative reconstruction, and [...] (test code=WAUAM) NO NO CBC (INCLUDES AUTOMATED DIFFERENTIAL)*[id number] 02:15:00 Test Item Value Reference Range Comments [...] MORPH (test code=WRBCMOR) NORMAL RAPID DRUG SCREEN, [id number] 20:58:00 Test Item Value Reference Range Comments BARBITURATE URINE (BEAKER) (test yyqx=980) Negative Negative BENZODIAZEPINE SCREEN URINE (BEAKER) (test Negative Negative hcyg=545) COCAINE (METAB.) SCREEN (BEAKER) (test mhbk=4910) Negative Negative METHADONE SCREEN (BEAKER) (test ozyh=3961) Negative Negative OPIATE SCREEN URINE (BEAKER) (test qudz=367) Positive Negative CANNABINOID SCREEN URINE (BEAKER) (test fuhi=004) Positive Negative AMPH/METHAMPH SCREEN (BEAKER) (test aduo=0455) Negative Negative PHENCYCLIDINE SCREEN URINE (BEAKER) (test oqfm=609) Negative Negative DRUG CUTOFF CONC.Cocaine 300 ng/mL Cannabinoid 50 ng/mLBenzodiazepine 200 ng/mLBarbiturate 200 ng/ mLPhencyclidine 25 ng/mLOpiate 300 ng/mLMethadone 300 ng/mLAmphetamine/ 1000 ng/mL MethamphetamineThis assay provides an unconfirmed qualitative test result for the clinical management of patients in emergency situations. Chain of custody not maintained. Some wchl-zhq-sdurvte medications, as well as adulterants, may cause inaccurate results. Clinical correlation should be applied. A more comprehensivedrug screen or confirmation of a detected drug may be performed upon request.URINALYSIS W/ [id number] 20:27:00 Test Item Value Reference Range Comments COLOR (BEAKER) (test dpkk=783) Light Yellow CLARITY (BEAKER) (test gucf=044) Clear SPECIFIC GRAVITY UA (BEAKER) (test jnkh=469) 1.016 1.001-1.035 PH UA (BEAKER) (test hbgb=943) 6.0 5.0-8.0 PROTEIN UA (BEAKER) (test hcup=495) Negative Negative GLUCOSE UA (BEAKER) (test hhpw=580) >500 mg/dL Negative KETONES UA (BEAKER) (test euwj=551) Negative Negative BILIRUBIN UA (BEAKER) (test jmoe=998) Negative Negative BLOOD UA (BEAKER) (test eaml=997) Negative Negative NITRITE UA (BEAKER) (test bclx=035) Negative Negative LEUKOCYTE ESTERASE UA (BEAKER) (test bpof=247) Negative Negative UROBILINOGEN UA (BEAKER) (test rnni=267) < mg/dL 0.2-1.0 RBC UA (BEAKER) (test emsv=705) < /HPF WBC UA (BEAKER) (test xswg=668) 0 /HPF BACTERIA (BEAKER) (test hydl=193) Rare MUCUS (BEAKER) (test bwdb=7488) Rare SOURCE(BEAKER) (test zuzz=8441) KETONE, [id number] 20:12:00 Test Item Value Reference Range Comments KETONES, BLOOD (BEAKER) (test bsez=7372) 0.0 mmol/L <0.4 POCT-GLUCOSE [id number] 20:08:00 Test Item Value Reference Range Comments POC-GLUCOSE METER (BEAKER) 241 mg/dL 70-110 TESTED AT [facility] [address] [facility] (test jlpy=1239) [facility] [address] BLOOD GAS, [id number] 20:05:00 Test Item Value Reference Range Comments PH VENOUS (BEAKER) (test dzhw=933) 7.42 7.32-7.42 PCO2 VENOUS (BEAKER) (test fgpd=823) 36 mmHg 41-51 PO2 VENOUS (BEAKER) (test bpsa=505) 43 mmHg 25-40 O2 SATURATION VENOUS (BEAKER) (test qnea=316) 80.3 % 40.0-70.0 HCO3 VENOUS (BEAKER) (test hbfy=259) 23 mmol/L 21-29 BASE EXCESS VENOUS (BEAKER) (test lztn=443) -1.4 mmol/L -2.0-3.0 PATIENT TEMPERATURE (BEAKER) (test piyw=8471) 36.7 C CREATINE KINASE (CK), TOTAL AND [id number] 20:05:00 Test Item Value Reference Range Comments CREATINE KINASE TOTAL (BEAKER) (test ying=277) 57 U/L 30-300 CREATINE KINASE-MB (BEAKER) (test lbhj=289) 0.6 ng/mL 0.0-4.9 CREATINE KINASE-MB INDEX (BEAKER) (test homw=790) 1.1 % CK-MB Reference Range:<5 Normal5-10 Borderline>10 AbnormalTROPONIN [id number] 20:05:00 Test Item Value Reference Range Comments TROPONIN I (BEAKER) (test mafb=272) < ng/mL 0.00-0.15 Troponin I (TnI) levels [...] Range Comments B-TYPE NATRIURETIC PEPTIDE (BEAKER) (test uutn=851) < pg/mL 0-100 [id number] 19:59:00 Test Item Value Reference Range Comments D-DIMER QUANTITATIVE (BEAKER) (test eafk=460) < MG/L FEU <0.50 Intended Use: The [...] within 95-100% range.RAD, CHEST, 1 VIEW, NON [id number] 19:59:00Reason for exam:->cpShould this be performed at the bedside?->YesFINAL REPORT Clinical History: cp Comparison Study: None Findings: The heartand lungs are within normal limits. The pleural spaces are clear. No significant bony or soft tissue abnormalities are seen. Impression: No active cardiopulmonary disease. Signed: Carlos Severino MDReport Verified Date/Time: 01/19/2017 19:59:25 Reading Location: [address] Consult Reading Room COMPREHENSIVE METABOLIC [id number] 19:58:00 Test Item Value Reference Range Comments TOTAL PROTEIN (BEAKER) 6.7 gm/dL 6.0-8.5 Specimen moderately (test hftx=112) hemolyzed ALBUMIN (BEAKER) (test 3.5 g/dL 3.5-5.0 Specimen moderately xwea=1140) hemolyzed ALKALINE PHOSPHATASE 84 U/L 30-115 (BEAKER) (test rkhh=804) BILIRUBIN TOTAL (BEAKER) 0.2 mg/dL 0.1-1.3 Specimen moderately (test okzn=402) hemolyzed SODIUM (BEAKER) (test 138 meq/L 135-148 aukb=198) POTASSIUM (BEAKER) (test 3.8 meq/L 3.5-5.5 Specimen moderately owrm=692) hemolyzed CHLORIDE (BEAKER) (test 106 meq/L 98-106 hwnl=088) CO2 (BEAKER) (test 21 meq/L 20-31 hvxb=730) BLOOD UREA NITROGEN 6 mg/dL 10-26 (BEAKER) (test atwj=445) CREATININE (BEAKER) (test 0.84 mg/dL 0.50-1.20 Specimen moderately ggpf=212) hemolyzed GLUCOSE RANDOM (BEAKER) 289 mg/dL 70-110 (test fxsc=691) CALCIUM (BEAKER) (test 8.8 mg/dL 8.5-10.5 bqpc=404) AST (SGOT) (BEAKER) (test 20 U/L 5-40 Specimen moderately xjxd=919) hemolyzed ALT (SGPT) (BEAKER) (test 13 U/L 6-50 Specimen moderately yhfy=332) hemolyzed EGFR (BEAKER) (test 103 mL/min/1.73 sq ESTIMATED GFR IS NOT gemd=8022) m ACCURATE CREATININE CLEARANCE IN PREDICTING GLOMERULAR FILTRATION RATE. ESTIMATED GFR IS NOT APPLICABLE FOR DIALYSIS PATIENTS. CBC W/PLT COUNT & AUTO [id number] 19:42:00 Test Item Value Reference Range Comments WHITE BLOOD CELL COUNT (BEAKER) (test dzhx=131) 12.4 K/ L 4.0-10.0 RED BLOOD CELL COUNT (BEAKER) (test oqdt=934) 4.98 M/ L 4.20-5.80 HEMOGLOBIN (BEAKER) (test lnfo=945) 14.4 GM/DL 13.0-16.8 HEMATOCRIT (BEAKER) (test akll=699) 43.5 % 40.0-50.0 MEAN CORPUSCULAR VOLUME (BEAKER) (test pbea=772) 87.4 fL 82.0-98.0 MEAN CORPUSCULAR HEMOGLOBIN (BEAKER) (test 28.8 pg 27.0-33.0 ksmr=265) MEAN CORPUSCULAR HEMOGLOBIN CONC (BEAKER) (test 33.0 GM/DL 32.0-36.0 hsae=970) RED CELL DISTRIBUTION WIDTH (BEAKER) (test 13.9 % 12.0-15.0 ywae=099) PLATELET COUNT (BEAKER) (test wjpc=160) 313 K/CU MM 150-430 MEAN PLATELET VOLUME (BEAKER) (test haah=712) 8.6 fL 6.5-10.5 NUCLEATED RED BLOOD CELLS (BEAKER) (test 0 /100 WBC 0-0 qgtw=260) NEUTROPHILS RELATIVE PERCENT (BEAKER) (test 60 % evhr=824) LYMPHOCYTES RELATIVE PERCENT (BEAKER) (test 29 % zonp=049) MONOCYTES RELATIVE PERCENT (BEAKER) (test 7 % nzib=688) EOSINOPHILS RELATIVE PERCENT (BEAKER) (test 3 % iwkr=986) BASOPHILS RELATIVE PERCENT (BEAKER) (test 1 % pxku=282) NEUTROPHILS ABSOLUTE COUNT (BEAKER) (test 7.40 K/ L 1.80-8.00 gzrd=064) LYMPHOCYTES ABSOLUTE COUNT (BEAKER) (test 3.60 K/ L 1.48-4.50 bzgb=514) MONOCYTES ABSOLUTE COUNT (BEAKER) (test 0.80 K/ L 0.00-1.30 zqlr=374) EOSINOPHILS ABSOLUTE COUNT (BEAKER) (test 0.40 K/ L 0.00-0.50 vfbu=846) BASOPHILS ABSOLUTE COUNT (BEAKER) (test 0.20 K/ L 0.00-0.20 lzsg=748) POCT-GLUCOSE [id number] 19:02:00 Test Item Value Reference Range Comments POC-GLUCOSE METER (BEAKER) 367 mg/dL 70-110 TESTED AT [address] (test tmhh=9441) [facility] [address] CT, SPINE, CERVICAL, WO [id number] 18:25:00Reason for exam:->NECK PAINWhat is the patient's [...] Mittal Verified Date/Time: 01/15/2017 18:25:26 Reading Location: [address] Reading Room Electronically signed by: NBA MITTAL M.D.on 01/15/2017 06:25 PMCT, BRAIN, WITHOUT [id number] 18:14:00Reason for exam:->NECK PAINWhat is the patient's [...] Mittal MDRrafyort Verified Date/Time: 18:14:13 Reading Location: [address] Reading Room XR KNEE RIGHT 3 [id number] 22:22:15EXAM: Portable right knee series, 3 viewsLocation: [id number]: Fell on right knee and twisted right kneeCOMPARISON: None.DISCUSSION: Frontal, oblique, and crosstable lateral views of the right kneeare submitted. No fracture, dislocation, lytic or blastic lesions areidentified. Joint spaces appear well preserved. No joint effusion is seen.IMPRESSION:No acute bony abnormalities.XR ANKLE RIGHT COMPLETE 3 [id number] 22:21:22EXAM: Right ankle series, 3 viewsLocation: [id number]: Fell, twisted right ankleCOMPARISON: None.DISCUSSION: Frontal, oblique, and lateral views of the right ankle aresubmitted. There is a questionable hairline fracture of the distal fibula, onlyseen on the oblique view near the ankle mortise. No other evidence of fractureis seen.IMPRESSION: Questionable hairline fracture of the distal fibula.RAPID DRUG SCREEN, [id number] 23:10:00 Test Item Value Reference Range Comments BARBITURATE URINE (BEAKER) (test polq=180) Negative Negative BENZODIAZEPINE SCREEN URINE (BEAKER) (test Negative Negative iydt=060) COCAINE (METAB.) SCREEN (BEAKER) (test njmp=0886) Negative Negative METHADONE SCREEN (BEAKER) (test ufvj=7069) Negative Negative OPIATE SCREEN URINE (BEAKER) (test tkvn=217) Positive Negative CANNABINOID SCREEN URINE (BEAKER) (test oklw=023) Negative Negative AMPH/METHAMPH SCREEN (BEAKER) (test bcsw=5278) Negative Negative PHENCYCLIDINE SCREEN URINE (BEAKER) (test jier=352) Negative Negative DRUG CUTOFF CONC.Cocaine 300 ng/mL Cannabinoid 50 ng/mLBenzodiazepine 200 ng/mLBarbiturate 200 ng/ mLPhencyclidine 25 ng/mLOpiate 300 ng/mLMethadone 300 ng/mLAmphetamine/ 1000 ng/mL MethamphetamineThis assay provides an unconfirmed qualitative test result for the clinical management of patients in emergency situations. Chain of custody not maintained. Some yomx-efs-bdgqvsn medications, as well as adulterants, may cause inaccurate results. Clinical correlation should be applied. A more comprehensivedrug screen or confirmation of a detected drug may be performed upon request.URINALYSIS W/ [id number] 22:55:00 Test Item Value Reference Range Comments COLOR (BEAKER) (test utlc=545) Yellow CLARITY (BEAKER) (test wzai=019) Clear SPECIFIC GRAVITY UA (BEAKER) (test mrkx=971) 1.025 1.001-1.035 PH UA (BEAKER) (test utgl=539) 6.0 5.0-8.0 PROTEIN UA (BEAKER) (test djus=527) Negative Negative GLUCOSE UA (BEAKER) (test ctdf=850) Negative Negative KETONES UA (BEAKER) (test zzjn=705) Negative Negative BILIRUBIN UA (BEAKER) (test vcwq=546) Negative Negative BLOOD UA (BEAKER) (test mblk=468) Negative Negative NITRITE UA (BEAKER) (test xngp=336) Negative Negative LEUKOCYTE ESTERASE UA (BEAKER) (test twhj=428) Negative Negative UROBILINOGEN UA (BEAKER) (test efbk=654) 0.2 mg/dL 0.2-1.0 BACTERIA (BEAKER) (test cify=266) Occasional MUCUS (BEAKER) (test lplw=4661) Many RBC UA-MANUAL (BEAKER) (test nqlg=6887) <5 /HPF WBC UA-MANUAL (BEAKER) (test gbel=6875) <5 /HPF SQUAMOUS EPITHELIAL MANUAL (BEAKER) (test <5 /HPF fcqg=4218) SOURCE(BEAKER) (test ycnz=1429) XR SHOULDER LEFT 3 [id number] 09:00:14EXAMINATION: XR SHOULDER LEFT 3 VIEWS.LOCATION: D4.HISTORY: shoulder pain while carrying heavy load.COMPARISON: Left shoulder x-ray 04/16/2015.FINDINGS/IMPRESSION:Three views of left shoulder demonstrates acute osseous abnormality. Nodislocation. Left clavicle appears intact. Visualized left lung parenchymaappears unremarkable.
[2017-09-03] MEDS ORDERED: MORPHINE 4 MG/ML SYR ONE (17:42)
[2017-09-03] MEDS ORDERED: NA CHLORIDE 0.9% 1,000 ML ONE (17:42)
[2017-09-03] MEDS ORDERED: ONDANSETRON 4 MG/2 ML VIAL ONE (17:42)
[2017-09-03 17:48] LABS: Absolute Lymphocytes (CBC) 2.6 K/uL (0.7-4.9); Absolute Monocytes 0.8 K/uL (0.1-1.3); Absolute Neutrophil 7.2 K/uL (1.8-8.0); Basophils % 1.1 % (0-1.3); Eosinophils % 3.1 % (0-4.4); Hematocrit 39.2 % (39.6-49.0); Lymphocytes % 23.3 % (15.3-44.8); MCH 28.1 pg (27.0-35.0); MCV 82.5 fL (80-100); MPV 7.4 fL (7.6-11.3); RBC Red Blood Cell Count 4.75 M/uL (4.33-5.43)
[2017-09-03 17:59] LABS: Bicarbonate 25 mEq/L (21-31); Glucose Level 257 mg/dL (65-120); Lipase 18 U/L (22-51); Potassium 3.2 mEq/L (3.6-5.0); Sodium Level 138 mEq/L (135-145)
[2017-09-03 18:05] LABS: ALT/SGPT 8 IU/L (10-60); AST/SGOT 20 IU/L (10-42); Albumin 3.2 g/dL (3.2-5.5); Alkaline Phosphatase 82 IU/L (42-121); Amylase Level 27 U/L (28-100); BUN Blood Urea Nitrogen 6 mg/dL (6-20); Bilirubin Direct 0.1 mg/dL (0-0.2); Bilirubin Total 0.3 mg/dL (0.3-1.2); Protein, Total 5.6 g/dL (6.0-8.3)
[2017-09-03 18:06] LABS: Urine Bacteria <20 /HPF (NONE SEEN); Urine Culture Reflex Order NOT NEEDED; Urine Mucus 1+ /HPF (NONE SEEN); Urine RBC <5 /HPF (NONE SEEN)
[2017-09-03 18:06] LABS: Urine Blood NEGATIVE (NEG); Urine Glucose 2+ (NEG); Urine Protein NEGATIVE (NEG)
--- NOTE | 2017-09-03 19:24 | RAD REPORT ---
EXAM DESCRIPTION: CT - Chest Abdomen Pelvis W Cont - 09/03/2017 7:03 pm CLINICAL HISTORY: Chest and abdomen pain. Fever COMPARISON: 08/31/2017, 08/13/[address] scans are performed using dose optimization technique as appropriate and may includ e automated exposure control or mA/KV adjustment according to patient size. FINDINGS: The lungs are clear.No pleural or pericardial effusion.No intrathoracic adenopathy. The liver, spleen, pancreas, adrenal glands and kidneys are within normal limits. Gallstones can be o ccult on CT imaging. No bowel obstruction, free air, free fluid or abscess. No pathologic lymphadenopathy in the abdomen o r pelvis. No worrisome osseous finding. IMPRESSION: No acute abnormality is detected.
--- NOTE | 2017-09-03 19:59 | EDPHYS ---
Physician Documentation [facility] Name: Adria Guallpa Jr Age: 37 yrs Sex: Male : 1980 Arrival Date: 09/03/2017 Time: 17:14 Bed 24 Private MD: ED Physician Alfredo Castillo HPI: 09/03 17:33 This 37 yrs old Male presents to ER via Ambulatory with complaints of right cp upper abdomen pain. 17:33 The pain radiates to the right mid back. cp 17:33 Associated signs and symptoms: Pertinent positives: nausea, vomiting, anorexia. cp 17:33 The patient has been recently seen at the [facility] Emergency cp Department, this week, for similar complaints labs were performed, an ultrasound was performed, CT scan was performed, diagnosed with gallstones. Patient reports continued pain, fevers, anorexia. Historical: - Allergies: 17:18 Flexeril; la1 17:18 Ibuprofen; la1 17:18 Toradol; la1 - PMHx: 17:18 Chronic pain; Diabetes - NIDDM; Myocardial infarction; la1 - Immunization history:: Adult Immunizations up to date. - Social history:: Smoking status: Patient uses tobacco products, smokes one pack cigarettes per day. ROS: 17:36 Eyes: Negative for injury, pain, redness, and discharge. cp 17:36 Constitutional: Positive for fever, poor PO intake, Negative for body aches, chills. 17:36 ENT: Negative for drainage from ear(s), ear pain, sore throat, difficulty swallowing, difficulty handling secretions. 17:36 Cardiovascular: Negative for chest pain, edema, palpitations. 17:36 Respiratory: Negative for cough, shortness of breath, wheezing. 17:36 Abdomen/GI: Positive for abdominal pain, nausea, vomiting, anorexia, Negative for diarrhea, constipation, black/tarry stool, rectal bleeding. 17:36 Back: Positive for radiated pain, of the right mid back, Negative for injury or acute deformity. 17:36 : Negative for urinary symptoms, testicular pain 17:36 MS/extremity: Negative for injury or acute deformity, decreased range of motion. 17:36 Skin: Negative for cellulitis, rash. 17:36 Neuro: Negative for altered mental status, headache, weakness. 17:36 All other systems are negative. Exam: 17:45 Constitutional: The patient appears in no acute distress, alert, awake, cp non-diaphoretic, non-toxic, well developed, well nourished. 17:45 Head/Face: Normocephalic, atraumatic. Eyes: Pupils equal round and reactive to light, cp extra-ocular motions intact. Lids and lashes normal. Conjunctiva and sclera are non-icteric and not injected. Cornea within normal limits. Periorbital areas with no swelling, redness, or edema. ENT: Nares patent. No nasal discharge, no septal abnormalities noted. Tympanic membranes are normal and external auditory canals are clear. Oropharynx with no redness, swelling, or masses, exudates, or evidence of obstruction, uvula midline. Mucous membranes moist. Chest/axilla: Normal chest wall appearance and motion. Nontender with no deformity. No lesions are appreciated. 17:45 Cardiovascular: Rate: tachycardic, Rhythm: regular, Pulses: Pulses are 2+ in right radial artery and left radial artery. Edema: is not appreciated, JVD: is not appreciated. 17:45 Respiratory: the patient does not display signs of respiratory distress, Respirations: normal, no use of accessory muscles, no retractions, no splinting, no tachypnea, labored breathing, is not present, Breath sounds: are clear throughout, no decreased breath sounds, no stridor, no wheezing. 17:45 Abdomen/GI: Inspection: abdomen appears normal, Bowel sounds: active, all quadrants, Palpation: soft, in all quadrants, moderate abdominal tenderness, in the right upper quadrant, rebound tenderness, is not appreciated, voluntary guarding, is elicited in the right upper quadrant, involuntary guarding, is not appreciated. 17:45 Back: pain, that is moderate, of the right mid back, ROM is normal. 17:45 Skin: cellulitis, is not appreciated, no rash present. 17:45 Neuro: Orientation: to person, place \T\ time. Mentation: lucid, able to follow commands, Cerebellar function: is grossly normal, Motor: moves all fours, strength is normal, Sensation: no obvious gross deficits, Gait: is steady. Vital Signs: 17:19 BP 131 / 74; Pulse 102; Resp 19; Temp 98.6; Pulse Ox 100% on R/A; Weight 85.28 kg; la1 Height 5 ft. 5 in. (165.10 cm); 17:57 BP 117 / 73; Pulse 90; Resp 18; Pulse Ox 97% ; tl3 18:38 BP 128 / 72; Pulse 88; Resp 16; Pulse Ox 97% ; tl3 20:16 BP 123 / 70; Pulse 80; Resp 16; Pulse Ox 100% on R/A; tl3 17:19 Body Mass Index 31.28 (85.28 kg, 165.10 cm) la1 MDM: 17:25 Patient medically screened. cp 18:00 Differential diagnosis: pancreatitis, cholecystitis, choledocholithiasis, dehydration, cp electrolyte abnormality. 19:40 Data reviewed: vital signs, nurses notes, lab test result(s), radiologic studies, CT cp scan, and as a result, I will. 19:40 Counseling: I had a detailed discussion with the patient and/or guardian regarding: the cp historical points, exam findings, and any diagnostic results supporting the discharge/admit diagnosis, lab results, radiology results, the need for outpatient follow up, a general surgeon, to return to the emergency department if symptoms worsen or persist or if there are any questions or concerns that arise at home. 19:55 ED course: VSS. No vomiting observed while in ED. Patient afebrile and tolerating po cp fluids. Will discharge to home for continued monitoring. 09/03 17:35 Order name: Amylase, Serum cp 09/03 17:35 Order name: Basic Metabolic Panel; Complete Time: 18:09 cp 09/03 18:05 Interpretation: K 3.2; GLUC 257; CA 8.3. cp 09/03 17:35 Order name: CBC with Diff; Complete Time: 18:05 cp 09/03 18:05 Interpretation: Normal except: WBC 11.0; HGB 13.4; HCT 39.2; RDW 16.6; MPV 7.4. cp 09/03 17:35 Order name: Creatinine for Radiology; Complete Time: 18:05 cp 09/03 17:35 Order name: Hepatic Function; Complete Time: 18:09 cp 09/03 18:09 Interpretation: Normal except: SGPT 8; TP 5.6. cp 09/03 17:35 Order name: Lipase; Complete Time: 18:09 cp 09/03 17:35 Order name: Urine Microscopic Only; Complete Time: 18:09 cp 09/03 17:35 Order name: Amylase Level; Complete Time: 18:09 EDMS 09/03 18:10 Interpretation: COLIN 27; Reviewed. cp 09/03 18:05 Order name: Urine Dipstick--Ancillary (enter results); Complete Time: 18:09 ag 09/03 18:25 Order name: CT Chest, Abdomen, Pelvis - W/Contrast; Complete Time: 19:36 cp 09/03 17:35 Order name: IV Saline Lock; Complete Time: 17:36 cp 09/03 17:35 Order name: Labs collected and sent; Complete Time: 17:36 cp 09/03 17:35 Order name: Urine Dipstick-Ancillary (obtain specimen); Complete Time: 17:55 cp Administered Medications: 17:56 Drug: morphine 4 mg Route: IVP; Infused Over: 3 mins; Site: right forearm; tl3 18:42 Follow up: Response: Pain is decreased tl3 17:56 Drug: Zofran 4 mg Route: IVP; Infused Over: 3 mins; Site: right forearm; tl3 18:42 Follow up: Response: No adverse reaction tl3 17:56 Drug: NS 0.9% 1000 ml Route: IV; Rate: 1 bolus; Site: right forearm; Delivery: Primary tl3 tubing; 18:56 Follow up: IV Status: Completed infusion; IV Intake: 1000ml tl3 20:16 Drug: GI Cocktail without - (Maalox Suspension 30 ml, Lidocaine Liquid 2 % 15 tl3 ml) Route: PO; 20:16 Follow up: Response: Medication administered at discharge. tl3 Disposition: 09/03/17 19:59 Discharged to Home. Impression: Upper abdominal pain, unspecified - Right. - Condition is Stable. - Discharge Instructions: Abdominal Pain, Adult, Cholelithiasis. - Prescriptions for Zofran 4 mg Oral Tablet - take 1 tablet by ORAL route every 12 hours As needed; 20 tablet. Tramadol 50 mg Oral Tablet - take 1 tablet by ORAL route every 8 hours as needed; 15 tablet. Bentyl 20 mg Oral Tablet - take 2 tablet by ORAL route every 6 hours As needed; 40 tablet. - Medication Reconciliation Form, Thank You Letter, Antibiotic Education, Prescription Opioid Use form. - Follow up: Martir Flores MD; When: Tomorrow; Reason: Recheck today's complaints. - Problem is new. - Symptoms have improved. Addendum: 09/12/2017 05:57 Co-signature as Attending Physician, Alfredo Castillo MD I agree with the assessment and w a plan of care. Signatures: Dispatcher [employer] EDMS Kam Elder RN RN la1 Jin Virk PA PA cp Alfredo Castillo MD MD wa Lowrey, Tammy, RN RN tl3 Corrections: (The following items were deleted from the chart) 09/03 20:18 19:59 09/03/2017 19:59 Discharged to Home. Impression: Upper abdominal pain, tl3 unspecified - Right. Condition is Stable. Forms are Medication Reconciliation Form, Thank You Letter, Antibiotic Education, Prescription Opioid Use. Follow up: Dr. Martir Flores; When: Tomorrow; Reason: Recheck today's complaints. Problem is new. Symptoms have improved. cp
--- NOTE | 2017-09-03 19:59 | ER ---
Nurse's Notes [facility] Name: Adria Guallpa Jr Age: 37 yrs Sex: Male : 1980 Arrival Date: 09/03/2017 Time: 17:14 Bed 24 Private MD: Diagnosis: Upper abdominal pain, unspecified-Right Presentation: 09/03 17:18 Presenting complaint: Patient states: I was dx with gall stones a few days ago and my la1 pain is getting worse, I have been running fever, and I cant hold anything down. Transition of care: patient was not received from another setting of care. Onset of symptoms was September 03, 2017. Initial Sepsis Screen: Does the patient meet any 2 criteria? No. Patient's initial sepsis screen is negative. Does the patient have a suspected source of infection? No. Patient's initial sepsis screen is negative. Care prior to arrival: None. 17:18 Method Of Arrival: Ambulatory la1 17:18 Acuity: DAVE 3 la1 Historical: - Allergies: 17:18 Flexeril; la1 17:18 Ibuprofen; la1 17:18 Toradol; la1 - PMHx: 17:18 Chronic pain; Diabetes - NIDDM; Myocardial infarction; la1 - Immunization history:: Adult Immunizations up to date. - Social history:: Smoking status: Patient uses tobacco products, smokes one pack cigarettes per day. Screenin:33 Abuse screen: Denies threats or abuse. Nutritional screening: No deficits noted. tl3 Tuberculosis screening: No symptoms or risk factors identified. Fall Risk None identified. Assessment: 17:33 General: Appears uncomfortable, well groomed, well developed, well nourished, Behavior tl3 is calm, cooperative, appropriate for age. Pain: Complains of pain in right upper quadrant Pain at worst was 10 out of 10 on a pain scale. Neuro: Level of Consciousness is awake, alert, obeys commands, Oriented to person, place, time, situation, Appropriate for age. Cardiovascular: Heart tones S1 S2 present Patient's skin is warm and dry. Respiratory: Airway is patent Trachea midline Respiratory effort is even, unlabored, Respiratory pattern is regular, symmetrical, Breath sounds are clear bilaterally. GI: Bowel sounds present X 4 quads. hyperactive in right upper quadrant, left upper quadrant, right lower quadrant and left lower quadrant Reports diarrhea, intolerance of fluids, intolerance of food, vomiting. : No signs and/or symptoms were reported regarding the genitourinary system. EENT: No signs and/or symptoms were reported regarding the EENT system. Derm: No signs and/or symptoms reported regarding the dermatologic system. Musculoskeletal: No signs and/or symptoms reported regarding the musculoskeletal system. 18:38 Reassessment: Patient appears in no apparent distress at this time. No changes from tl3 previously documented assessment. Patient and/or family updated on plan of care and expected duration. Pain level reassessed. Patient is alert, oriented x 3, equal unlabored respirations, skin warm/dry/pink. DR Castillo discussed POC with pt. 20:16 Reassessment: Patient appears in no apparent distress at this time. No changes from tl3 previously documented assessment. Patient and/or family updated on plan of care and expected duration. Pain level reassessed. Patient is alert, oriented x 3, equal unlabored respirations, skin warm/dry/pink. Vital Signs: 17:19 BP 131 / 74; Pulse 102; Resp 19; Temp 98.6; Pulse Ox 100% on R/A; Weight 85.28 kg; la1 Height 5 ft. 5 in. (165.10 cm); 17:57 BP 117 / 73; Pulse 90; Resp 18; Pulse Ox 97% ; tl3 18:38 BP 128 / 72; Pulse 88; Resp 16; Pulse Ox 97% ; tl3 20:16 BP 123 / 70; Pulse 80; Resp 16; Pulse Ox 100% on R/A; tl3 17:19 Body Mass Index 31.28 (85.28 kg, 165.10 cm) la1 ED Course: 17:14 Patient arrived in ED. mr 17:18 Triage completed. la1 17:19 Arm band placed on left wrist. la1 17:20 Misa Morgan, APPLE is Primary Nurse. tl3 17:25 Jin Virk PA is PHCP. cp 17:25 Alfredo Castillo MD is Attending Physician. cp 17:33 Patient has correct armband on for positive identification. Bed in low position. Call tl3 light in reach. Side rails up X 1. 17:33 No provider procedures requiring assistance completed. Inserted saline lock: 20 gauge tl3 in left forearm, using aseptic technique. Blood collected. 17:55 Amylase, Serum Sent. tl3 18:56 Patient moved to radiology via stretcher. tl3 19:04 CT Chest, Abdomen, Pelvis - W/Contrast In Process Unspecified. EDMS 19:[address]. tl3 19:58 Martir Flores MD is Referral Physician. cp 20:16 IV discontinued, intact, bleeding controlled, No redness/swelling at site. Pressure tl3 dressing applied. Administered Medications: 17:56 Drug: morphine 4 mg Route: IVP; Infused Over: 3 mins; Site: right forearm; tl3 18:42 Follow up: Response: Pain is decreased tl3 17:56 Drug: Zofran 4 mg Route: IVP; Infused Over: 3 mins; Site: right forearm; tl3 18:42 Follow up: Response: No adverse reaction tl3 17:56 Drug: NS 0.9% 1000 ml Route: IV; Rate: 1 bolus; Site: right forearm; Delivery: Primary tl3 tubing; 18:56 Follow up: IV Status: Completed infusion; IV Intake: 1000ml tl3 20:16 Drug: GI Cocktail without - (Maalox Suspension 30 ml, Lidocaine Liquid 2 % 15 tl3 ml) Route: PO; 20:16 Follow up: Response: Medication administered at discharge. tl3 Intake: 18:56 IV: 1000ml; Total: 1000ml. tl3 Outcome: 19:59 Discharge ordered by MD. cp 20:16 Discharged to home ambulatory. tl3 20:16 Condition: good 20:16 Discharge instructions given to patient, Instructed on discharge instructions, follow up and referral plans. medication usage, Demonstrated understanding of instructions, follow-up care, medications, Prescriptions given X 3. 20:18 Patient left the ED. tl3 Signatures: Dispatcher [employer] [facility] Talisha Sarkar Lee, RN RN la1 Jin Virk PA PA Misa Moses, RN RN tl3
[2017-09-03] MEDS ORDERED: MAGNE/ALUM HYDROXD 30 ML UCUP ONE (20:05)
[2017-09-03] MEDS ORDERED: LIDOCAINE VISCOUS 2% SOLN 15 ML UDC ONE (20:05)
== END 2017-09-03 20:18 | disposition home or self-care (01) ==
LOC: ER 17:11
DX: R10.11 Right upper quadrant pain (principal); I25.2 Old myocardial infarction; F17.210 Nicotine dependence, cigarettes, uncomplicated; Z88.5 Allergy status to narcotic agent; Z88.6 Allergy status to analgesic agent; Z88.8 Allergy status to other drugs, medicaments and biological substances
CPT/HCPCS: 36415; 71260; 74177; 80048; 80076; 81003; 81015; 82150; 83690; 85025; 96361; 96374; 96375; 99284; J2405; J7030; Q9967

== ENCOUNTER 2017-09-18 10:34 | Emergency (ER) | payer SELFPAY ==
--- OUTSIDE RECORDS SUMMARY | 2017-09-18 10:35 | XMS REPORT | Clinical Summary ---
:1980 Author Organization [facility] Address [address] [place] [address] Care Team Providers Name Role Phone Asked, [...] mouth 2 (two) capsule times a day. acetaminophen Take 1 tablet 30 tablet 0 09/18/2017 Active (TYLENOL EXTRA (500 mg total) 8 STRENGTH) 500 MG by mouth every tablet 6 (six) hours as needed for mild pain for up to 5 days. gabapentin Take 100 mg by Discontinued (NEURONTIN) [...] Encounters Date Type Specialty Care Team Description 09/18/2017 Emergency Emergency Medicine Ezequiel Min, Acute right flank pain (Primary Dx) 08/30/2017 Emergency Emergency Medicine Ezequiel Min, Cough (Primary Dx ) Isra Nick DO [...] (Primary Dx) 04/04/2017 - Emergency General Internal Baptism, Kanika Bin, Other chest pain 04/05/2017 Medicine (Primary [...] Andrew Gallegos Sprain of left ankle, Danny, CARD FOLDER-C unspecified ligament, Alfredo Story initial encounter DO Harinder (Primary Dx) 01/23/2017 - Emergency Emergency Medicine El, Andrew Sprain of left ankle, 01/24/2017 Danny CARD FOLDER-C unspecified ligament, Caleb Obando initial encounter MD Ariel (Primary Dx) 01/19/2017 Emergency Emergency Medicine Kanika Iglesias, Neck pain ( Primary Dx) 01/01/2017 Emergency Emergency Medicine Ezequiel Min H, Nausea vomiting and diarrhea (Primary Dx); Right flank pain 12/16/2016 - Emergency Emergency Medicine Andrew Gallegos Sprain of left knee , unspecified ligament, initial encounter (Primary Dx); 12/17/2016 Danny, CARD FOLDER-C Strain of left hip and thigh, initial encounter Shimon Torres MD 12/08/2016 Emergency Emergency Medicine Silvestrelak, Kosta Sprain of left MD Shimon shoulder, unspecified shoulder sprain type, initial encounter (Primary Dx) 11/30/2016 Emergency Emergency Medicine Mckeon, Adria Foot sprain, left, Mcguire-Lac, DO initial encounter (Primary Dx) 11/21/2016 Emergency Emergency Medicine Heiberger, Ramón Chest pain, unspecified type (Primary Dx); MD Dalton Gooden Hoang N, MD 11/07/2016 Emergency Emergency Medicine Andrew Gallegos Intractable episodic Danny, CARD FOLDER-C headache, unspecified Heiberger, Ramón headache type (Primary MD Giacomo Dx) 11/04/2016 Emergency Emergency Medicine Andrew Gallegos 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, Danny, CARD FOLDER-C unspecified ligament, Abdirahman Montesinos initial encounter MD Randy (Primary Dx) 10/21/2016 Emergency Emergency Medicine Kanika Iglesias, Acute bilateral low MD back pain without sciatica (Primary Dx) 09/19/2016 Emergency Emergency Medicine Jazzy Schroeder PA-C Islam, Nadim Bin, MD after 09/17/2016 Immunizations Name Dates Previously Given Next Due Tdap 08/20/2017 (Deferred: ) Social History Tobacco Use Types Packs/Day Years Used Date Current Every Day Smoker Cigarettes 0.5 20 Smokeless Tobacco: Never Used Tobacco Cessation: Ready to Quit: Yes Alcohol Use Drinks/Week oz/Week Comments No Sex Assigned at Date Recorded Not on file Last Filed Vital Signs Vital Sign Reading Time Taken Blood Pressure 147/83 09/18/2017 8:14 AM CDT Pulse 65 09/18/2017 8:14 AM CDT Temperature 36.4 C (97.5 F) 09/18/2017 8:14 AM CDT Respiratory Rate 16 09/18/2017 8:14 AM CDT Oxygen Saturation 99% 09/18/2017 8:14 AM CDT Inhaled Oxygen Concentration - - Weight 90.7 kg (200 lb) 09/18/2017 8:14 AM CDT Height 177.8 cm (5' 10") 09/18/2017 8:14 AM CDT Body Mass Index 28.7 09/18/2017 8:14 AM CDT Plan of Treatment Health Maintenance Due Date Last Done Comments INFLUENZA VACCINE 11/22/2017 Procedures Procedure Name Priority Date/Time Associated Comments Diagnosis ECHOCARDIOGRAM 2D Routine 04/05/2017 8:00 Results for this COMPLETE W MMODE AM FERRYBOAT PILOT procedure are in SPECTRAL COLOR DOPPLER the results (41286) section. after 09/17/2016 Results Urinalysis screen and microscopy, with reflex to culture (09/18/2017 8:21 AM) Only the most recent of5 resultswithin the time period is included. Component Value Ref Range Specimen site Clean catch Color, UA Yellow Appearance, UA Clear Specific gravity, UA 1.020 1.001 - 1.035 pH, UA 5.0 5.0 - 8.5 Protein, UA Negative Negative Glucose, UA Negative Negative Ketones, UA Negative Negative Bilirubin, UA Negative Negative Blood, UA Negative Negative Nitrite, UA Negative Negative Urobilinogen, UA 2.0 (A) <2.0 Leukocyte esterase, UA Negative Negative Epithelial cells, UA Few /HPF WBC, UA 0-5 0 - 1 /HPF RBC, UA 0-5 0 - 5 /HPF Bacteria, UA None seen None seen Yeast, UA None seen Yeast with pseudohyphae, UA None seen Specimen Performing Laboratory Urine [facility] [address] [place] [address] Urine culture (09/18/2017 8:21 AM)Only the most recent of3 resultswithin the time period is included. Component Value Ref Range Urine culture SEE COMMENTComment: Bacteriuria screen negative. Specimen Performing Laboratory Urine [facility] [address] [place] [address] ECG ED Preliminary Interpretation - NOT AN ORDER (08/30/2017 9:01 PM)Only the most recent of8 resultswithin the time period is included. Narrative Isra Fairchild DO 08/31/20171:36 AM ECG ED Preliminary Interpretation - Not an Order Performed by: ISRA FAIRCHILD Authorized by: ISRA FAIRCHILD ECG reviewed by ED Physician in the absence of a retail loan originator assistant: yes Interpretation: Interpretation: normal Rate: ECG rate:96 ECG rate assessment: normal Rhythm: Rhythm: sinus rhythm Ectopy: Ectopy: none QRS: QRS axis:Normal Conduction: Conduction: normal ST segments: ST segments:Normal T waves: T waves: normal XR Chest 2 Vw (08/30/2017 8:33 PM)Only the most recent of2 resultswithin the time period is included. Specimen Performing Laboratory [facility] [address] [place] [address] Narrative EXAMINATION: XR CHEST 2 VW CLINICAL HISTORY: Cough COMPARISON:08/19/2017 chest x-ray. IMPRESSION: The lungs are clear. No pleural effusion or pneumothorax. The cardiomediastinal silhouette is normal. No acute osseous abnormalities. [id number] Procedure Note Interface, Radiology Results Incoming - 08/30/2017 8:42 PM CDT EXAMINATION: XR CHEST 2 VW CLINICAL HISTORY: Cough COMPARISON: 08/19/2017 chest x-ray. IMPRESSION: The lungs are clear. No pleural effusion or pneumothorax. The cardiomediastinal silhouette is normal. No acute osseous abnormalities. [facility]-[id number] ECG 12 lead (08/30/2017 7:41 PM)Only the most recent of10 resultswithin the time period is included. Component Value Ref Range Ventricular rate 96 Atrial rate 96 CA interval 134 QRSD interval 80 QT interval 350 QTC interval 442 P axis 1 49 QRS axis 1 59 T wave axis 48 EKG impression Normal sinus rhythm with sinus arrhythmia-Normal ECG-In automated comparison with ECG of 19-AUG-2017 19:41,-No significant change was found- Specimen Performing Laboratory [facility] MUSE [address] [place] [address] XR Hand 3+ Vw Left (08/20/2017 11:01 PM) Specimen Performing Laboratory [facility] [address] [place] [address] Narrative Examination:XR HAND 3VW LEFT Clinical History: trauma and pain Comparison: None. Findings: 3 views of the left hand are obtained. No acute fracture or dislocation is seen. The joint spaces are within normal limits. Soft tissues are unremarkable. IMPRESSION: 1. No acute abnormality identified in the left hand. [facility]-[id number] Procedure Note Interface, Radiology Results Incoming - 08/20/2017 11:26 PM CDT Examination: XR HAND 3 VW LEFT Clinical History: trauma and pain Comparison: None. Findings: 3 views of the left hand are obtained. No acute fracture or dislocation is seen. The joint spaces are within normal limits. Soft tissues are unremarkable. IMPRESSION: 1. No acute abnormality identified in the left hand. [facility]-[id number] Estimated GFR (08/19/2017 9:10 PM)Only the most [...] and Americans. Specimen Performing Laboratory Plasma specimen [facility] DEPARTMENT OF PATHOLOGY AND GENOMIC MEDICINE [id number] [place] [address] Troponin (08/19/2017 9:10 PM)Only the most recent [...] myocardial injury. Specimen Performing Laboratory Plasma specimen [facility] DEPARTMENT OF PATHOLOGY AND GENOMIC MEDICINE [address] [place] [address] Urine drugs of abuse screen (08/19/2017 9:10 [...] Comment: Drug screen minimum concentration of detectability Ltahctuwbrhk5597 ng/mL Barbiturates 200 ng/mL Caounthwpgvodiw403 ng/mL Pqsawuj317 ng/mL Fzoowhchy355 ng/mL Xqsljvh857 ng/mL Phencyclidine 25 ng/mL Ieoslmioiceb02 ng/mL Ljbwgcqjux7008 ng/mL Negative test results indicates presumptive evidence of lack of clinically significant drug concentration in this urine specimen. Positive test results are presumptive evidence of clinically significant drug concentration in this urine specimen. Testing performed for medical purposes only. Specimen Performing Laboratory Urine [facility] OF PATHOLOGY AND GEN[facility]IC MEDICINE [address] [place] [address] D-dimer (08/19/2017 9:10 PM)Only the most recent [...] sepsis, and malignancies. Specimen Performing Laboratory Blood [facility] DEPARTMENT OF PATHOLOGY AND [facility] MEDICINE [address] [place] [address] CBC with platelet and differential (08/19/2017 9:10 [...] - 1.0 % Specimen Performing Laboratory Blood [facility] DEPARTMENT OF PATHOLOGY AND [place] [id number] B natriuretic peptide (08/19/2017 9:10 PM)Only the most recent of6 resultswithin the time period is included. Component Value Ref Range BNP 6 0 - 100 pg/mL Specimen Performing Laboratory Blood [facility]MENT OF PATHOLOGY AND GENOMIC MEDICINE [address] [place], [place] [address] Creatine kinase, total (CPK) (08/19/2017 9:10 PM)Only the most recent of5 resultswithin the time period is included. Component Value Ref Range Creatine kinase 55 39 - 308 U/L Specimen Performing Laboratory Plasma specimen [facility] OF PATHOLOGY AND [place] [id number] Comprehensive metabolic panel (08/19/2017 9:10 PM)Only the [...] 1.2 mg/dL Specimen Performing Laboratory Plasma specimen [facility] DEPARTMENT OF PATHOLOGY AND GENOMIC MEDICINE [address] [place] [address] XR Chest 1 Vw Portable (08/19/2017 8:21 PM)Only the most recent of5 resultswithin the time period is included. Specimen Performing Laboratory [facility] [address] [place] [address] Narrative EXAMINATION:XR CHEST 1 VW PORTABLE CLINICAL HISTORY: Chest Pain COMPARISON:fall IMPRESSION: No radiographic evidence for acute cardiopulmonary process. Cardiomediastinal silhouette is within normal limits of size. No focal or confluent airspace consolidation is seen on the single AP view to suggest acute pneumonia. No sizable pleural effusion. No pneumothorax identified. No acute osseous abnormalities are visualized. [facility]-[id number] Procedure Note Interface, Radiology Results Incoming - 08/19/2017 8:25 PM CDT EXAMINATION: XR CHEST 1 VW PORTABLE CLINICAL HISTORY: Chest Pain COMPARISON: fall IMPRESSION: No radiographic evidence for acute cardiopulmonary process. Cardiomediastinal silhouette is within normal limits of size. No focal or confluent airspace consolidation is seen on the single AP view to suggest acute pneumonia. No sizable pleural effusion. No pneumothorax identified. No acute osseous abnormalities are visualized. [facility]-[id number] CT Cervical Spine Wo Contrast (08/16/2017 10:21 PM)Only the most recent of2 resultswithin the time period is included. Specimen Performing Laboratory [facility] [address] [place] [address] Narrative EXAMINATION: CT CERVICAL SPINE WO CONTRAST [...] acute osseous abnormality of the cervical spine. [facility]-[id number] Procedure Note Interface, Radiology Results Incoming - 08/16/2017 10:40 PM CDT EXAMINATION: CT [...] acute osseous abnormality of the cervical spine. [facility]-[id number] CT Head Wo Contrast (08/16/2017 10:21 PM)Only the most recent of3 resultswithin the time period is included. Specimen Performing Laboratory [facility] [address] [place] [address] Narrative EXAMINATION:CT HEAD WO CONTRAST CLINICAL HISTORY:s [...] No CT evidence of acute intracranial abnormality. [id number] Procedure Note Interface, Radiology Results Incoming - 08/16/2017 10:30 PM [...] No CT evidence of acute intracranial abnormality. [id number] CT Lumbar Spine Wo Contrast (08/08/2017 10:45 AM) Specimen Performing Laboratory [facility] [address] [place] [address] Narrative EXAMINATION:CT LUMBAR SPINE WO CONTRAST CLINICAL [...] compression No acute bony abnormality lumbar spine [id number] Procedure Note Interface, Radiology Results - 08/08/2017 11:28 AM CDT EXAMINATION: CT [...] compression No acute bony abnormality lumbar spine [id number] CT Thoracic Spine Wo Contrast (08/08/2017 10:45 AM) Specimen Performing Laboratory [facility] [address] [place] [address] Narrative EXAMINATION:CT THORACIC SPINE WO CONTRAST CLINICAL HISTORY:fall from horseupper back pain COMPARISON:None. TECHNIQUE: CT imaging was performed with iterative reconstruction technique and /or automated exposure control to reduce radiation dose. IMPRESSION: Thoracic spine alignment is within normal limits. Mild multilevel endplate degenerative changes. No moderate or severe canal/foraminal narrowing. No fractures or aggressive bony lesions. [id number] Procedure Note Hm Interface, Radiology Results Incoming [...] narrowing. No fractures or aggressive bony lesions. [id number] POC glucose (04/05/2017 8:24 AM)Only the most recent of4 resultswithin the time period is included. Component Value Ref Range POC glucose 125 (H) 65 - 99 mg/dL Comment: Meter ID: [id number] Case Hardener: Daljit Gonsales Specimen Performing Laboratory [facility] [address] [place] [address] Echocardiogram complete w contrast and 3D if [...] 61.55 % LV EF,BP 64.76 % [place],d A2C 9.16 cm [place],d A4C 8.30 cm [place],s A2C 7.41 cm [place],s A4C 7.15 cm LV,s 3.90 cm LV [...] diam s 4.10 cm Aortic Root 3.63 CA End Jung Grad 7.61 CA End Diat Dwight 1.38 D E excurs 2.00 E f slope 0.07 E prime lat 0.14 E candido sept 0.10 PV acc T slope 7.90 Specimen Performing Laboratory [facility] [address] [place] [address] Narrative The left ventricle chamber size is [...] SeeBelow Comment: Total Cholesterol (mg/dL) <200 Desirable 537-967Rczhzwqpgr-kayl >=240High Triglycerides (mg/dL) <150 Normal 846-191Nraxsmshic-ehqq 200-499High >=500Very high HDL Cholesterol (mg/dL) <40Low (male) <40Low (female) LDL Cholesterol (mg/dL) <100 Optimal 100-129Near or above optimal 133-084Kkuraqqijg-rbka 160-189High >=190Very high Risk Catergories that modify [...] (>=200 mg/dL) Specimen Performing Laboratory Plasma specimen [facility] [address] [place] [address] [place] [address] Bedside glucose (04/04/2017 10:30 PM)Only the most [...] Anti-Xa 0.3-0.7 U/ml. Specimen Performing Laboratory Blood [facility] AND [facility] [address] [place] [address] [place] [address] Prothrombin time with INR (04/04/2017 2:58 PM)Only [...] vein thrombosis/pulmonary embolism. Specimen Performing Laboratory Blood [facility] [facility] [address] [place] [address] [place] [address] Basic metabolic panel (03/02/2017 6:55 AM)Only the [...] 10.2 mg/dL Specimen Performing Laboratory Plasma specimen [facility] [address] [place] [address] CT Abdomen Pelvis W Contrast (02/17/2017 1:00 PM) Specimen Performing Laboratory [facility] [address] [place] [address] Narrative EXAMINATION:CT ABDOMEN PELVIS W CONTRAST CLINICAL [...] of stool is present in the colon [id number] Procedure Note Interface, Radiology Results Incoming - [...] of stool is present in the colon [id number] US Gallbladder (02/17/2017 12:26 PM) Specimen Performing Laboratory [facility] [address] [place] [address] Narrative EXAMINATION:US GALLBLADDER CLINICAL HISTORY: ruq abd [...] to rule out choledocholithiasis if clinical indicated. [id number] Procedure Note Interface, Radiology Results Incoming - [...] to rule out choledocholithiasis if clinical indicated. [id number] Lipase level (02/17/2017 11:45 AM)Only the most recent of2 resultswithin the time period is included. Component Value Ref Range Lipase 20 13 - 60 U/L Specimen Performing Laboratory Plasma specimen [facility] [address] [place] [address] XR Ankle 3+ Vw Left (02/05/2017 10:25 PM)Only the most recent of3 resultswithin the time period is included. Specimen Performing Laboratory [address] [address] Narrative EXAMINATION:XR ANKLE 3VW LEFT CLINICAL HISTORY:BONE PAINANKLE COMPARISON:01/24/2017. IMPRESSION: No definite fracture or dislocation of the left ankle. Soft tissue swelling about the ankle. [facility]-[id number] Procedure Note Interface, Radiology Results Incoming - 02/05/2017 10:33 PM CDT EXAMINATION: XR ANKLE 3 VW LEFT CLINICAL HISTORY: BONE PAIN ANKLE COMPARISON: 01/24/2017. IMPRESSION: No definite fracture or dislocation of the left ankle. Soft tissue swelling about the ankle. [facility]-[id number] XR Foot 3+ Vw Left (01/24/2017 12:30 AM)Only the most recent of2 resultswithin the time period is included. Specimen Performing Laboratory [address] [address] Narrative Examination:XR FOOT 3VW LEFT Clinical History: BONE PAINFOOT Comparison: None. Findings: 3 views of the left foot are obtained. No acute fracture or dislocation is seen. The joint spaces are within normal limits. Soft tissues are unremarkable. Posterior calcaneal spurring is noted. IMPRESSION: 1. No acute abnormality identified in the left foot. [facility]-[id number] Procedure Note Interface, Radiology Results Incoming - [...] acute abnormality identified in the left foot. [facility]-[id number] CT Renal Stone Protocol (01/01/2017 7:51 AM) Specimen Performing Laboratory [address] [address] Narrative EXAMINATION:CT RENAL STONE PROTOCOL CLINICAL HISTORY:R [...] 4. The appendix has no inflammatory change. [id number] Procedure Note Hm Interface, Radiology Results Incoming [...] 4. The appendix has no inflammatory change. [id number] Hepatic function panel (01/01/2017 7:36 AM) Component Value Ref Range Albumin 4.0 3.5 - 5.0 g/dL Total bilirubin 0.2 0.0 - 1.2 mg/dL Bilirubin direct <0.1 0.0 - 0.3 mg/dL Alkaline phosphatase 121 40 - 129 U/L Protein 7.1 6.3 - 8.3 g/dL Comment: [place] 4.6-7.0 g/dL 1 week 4.4-7.6 g/dL 7 months-1year5.1-7.3 g/dL 1-2 years5.6-7.5 g/dL >3 years6.0-8.0 g/dL 18-150 6.3-8.3 g/dL ALT 7 5 - 50 U/L AST 11 10 - 50 U/L Specimen Performing Laboratory Plasma specimen [facility] [address] [place] [address] XR Pelvis 1 Or 2 Vw (12/17/2016 12:47 AM) Specimen Performing Laboratory [facility] [address] [place] [address] Narrative XR PELVIS 1 OR 2 VW CLINICAL INDICATION:JOINT PAINHIP COMPARISON:None. IMPRESSION: There is no acute fracture or dislocation. Joint spaces are maintained and there is no evidence of significant arthritis. Osseous mineralization is normal. [facility]-[id number] Procedure Note Interface, Radiology Results Incoming - 12/17/2016 12:53 AM CDT XR PELVIS 1 OR 2 VW CLINICAL INDICATION: JOINT PAIN HIP COMPARISON: None. IMPRESSION: There is no acute fracture or dislocation. Joint spaces are maintained and there is no evidence of significant arthritis. Osseous mineralization is normal. [id number] XR Femur 2 Vw Left (12/17/2016 12:46 AM) Specimen Performing Laboratory [facility] [address] [place] [address] Narrative XR FEMUR 2 VW LEFT CLINICAL INDICATION:thigh pain after fall COMPARISON:None. IMPRESSION: There is no acute fracture or dislocation. Joint spaces are maintained and there is no evidence of significant arthritis. Osseous mineralization is normal. [facility]-[id number] Procedure Note Interface, Radiology Results Incoming - 12/17/2016 12:52 AM CDT XR FEMUR 2 VW LEFT CLINICAL INDICATION: thigh pain after fall COMPARISON: None. IMPRESSION: There is no acute fracture or dislocation. Joint spaces are maintained and there is no evidence of significant arthritis. Osseous mineralization is normal. [id number] XR Knee 4+ Vw Left (12/17/2016 12:46 AM) Specimen Performing Laboratory [facility] [address] [place] [address] Narrative XR KNEE 4VW LEFT CLINICAL INDICATION:BONE PAINKNEE COMPARISON:None. IMPRESSION: There is no acute fracture or dislocation. There is no knee joint effusion. Joint spaces are maintained and there is no evidence of significant arthritis. Osseous mineralization is normal. [id number] Procedure Note Interface, Radiology Results - 12/17/2016 12:51 AM CDT XR KNEE 4 VW LEFT CLINICAL INDICATION: BONE PAIN KNEE COMPARISON: None. IMPRESSION: There is no acute fracture or dislocation. There is no knee joint effusion. Joint spaces are maintained and there is no evidence of significant arthritis. Osseous mineralization is normal. [id number] XR Shoulder 2+ Vw Left (12/08/2016 9:33 AM) Specimen Performing Laboratory [facility] [address] [place] [address] Narrative EXAMINATION:XR SHOULDER 2VW LEFT CLINICAL HISTORY:paininjury COMPARISON:None available at this time. IMPRESSION: 1. No fracture, malalignment, or osseous destructive lesion of the left shoulder. 2. Joint spaces are maintained. No significant degenerative changes. 3. Soft tissues are unremarkable. [facility]-[id number] Procedure Note Interface, Radiology Results Incoming - 12/08/2016 9:38 AM CDT EXAMINATION: XR SHOULDER 2 VW LEFT CLINICAL HISTORY: pain injury COMPARISON: None available at this time. IMPRESSION: 1. No fracture, malalignment, or osseous destructive lesion of the left shoulder. 2. Joint spaces are maintained. No significant degenerative changes. 3. Soft tissues are unremarkable. [facility]-[id number] Magnesium level (11/07/2016 6:20 PM) Component Value Ref Range Magnesium 1.9 1.6 - 2.6 mg/dL Specimen Performing Laboratory Plasma specimen [facility] [address] [place] [address] XR Knee 4+ Vw Right (11/04/2016 1:11 AM) Specimen Performing Laboratory [facility] [address] [place] [address] Narrative XR KNEE 4VW RIGHT CLINICAL INDICATION:BONE PAINKNEE COMPARISON:None. IMPRESSION: There is no acute fracture or dislocation. There is no knee joint effusion. Joint spaces are maintained and there is no evidence of significant arthritis. Osseous mineralization is normal. [facility]-[id number] Procedure Note Interface, Radiology Results Incoming - 11/04/2016 2:51 AM CDT XR KNEE 4 VW RIGHT CLINICAL INDICATION: BONE PAIN KNEE COMPARISON: None. IMPRESSION: There is no acute fracture or dislocation. There is no knee joint effusion. Joint spaces are maintained and there is no evidence of significant arthritis. Osseous mineralization is normal. [id number] after 09/17/2016
--- OUTSIDE RECORDS SUMMARY | 2017-09-18 10:36 | XMS REPORT | Clinical Summary ---
:1980 Author Organization [facility] Address [address] [place] [address] Phone Care Team Providers Name Role Phone [...] Right elbow pain DO (Primary Dx) after 09/17/2016 Social History Tobacco Use Types Packs/Day Years Used Date Current Every Day Smoker Cigarettes 1 Smokeless Tobacco: Never Used Alcohol Use Drinks/Week oz/Week Comments No Sex Assigned at Date Recorded Not on file Last Filed Vital Signs Vital Sign Reading Time Taken Blood Pressure 124/58 03/08/2017 9:16 AM [facility] Pulse 67 03/08/2017 9:15 AM [facility] [employer] Temperature 36.6 C (97.8 F) 03/08/2017 7:45 AM [facility] [employer] Respiratory Rate 18 03/08/2017 7:45 AM [facility] [employer] Oxygen Saturation 98% 03/08/2017 9:15 AM [facility] [employer] [employer] Inhaled Oxygen Concentration - - Weight 90.7 kg (200 lb) 03/08/2017 7:45 AM [employer] [employer] [employer] Height 177.8 cm (5' 10") 02/25/2017 8:16 AM CDT Body Mass Index 28.7 03/08/2017 7:45 AM [facility] [employer] [employer] Plan of Treatment Not on file Results [...] MD Report Verified Date/Time:03/08/2017 09:15:05 Reading Location: [address] Consult Reading Room Procedure Note Interface, External Ris In - 03/08/2017 9:17 AM DIE RE[employer] [employer] FINAL REPORT CT abdomen and pelvis with [...] Report Verified Date/Time: 03/08/2017 09:15:05 Reading Location: [facility] C013X Ortho Consult Reading Room [...] Laboratory Blood - Arm, Right [facility], [facility] [address] [place] [address] CBC with platelet count + automated diff (03/08/2017 8:00 AM)Only the most recent of2 resultswithin the time period is included. Specimen Performing Laboratory Blood Narrative The following orders were created for panel order CBC with platelet count + automated diff. Procedure Abnormality Status --------- ------ CBC with platelet count ...[[id number]]AbnormalFinal result Please view results for these tests on the individual orders. ALT (SGPT) (03/08/2017 8:00 AM) Component Value Ref Range ALT 21 5 - 50 U/L Specimen Performing Laboratory Blood - Arm, [facility], [facility] [place], [facility] [address] [place] [phone] AST (SGOT) (03/08/2017 8:00 AM) Component Value Ref Range AST 11 5 - 40 U/L Specimen Performing Laboratory Blood - [facility], [facility], [facility], [facility] [address] [place] [phone] Lipase (03/08/2017 8:00 AM) Component Value Ref Range Lipase 37 (L) 40 - 240 U/L Specimen Performing Laboratory Blood - Arm, [facility], [facility] [place], [facility] [address] [place] [phone] Bilirubin, adult total (03/08/2017 8:00 AM) Component Value Ref Range Total Bilirubin 0.3 0.1 - 1.2 mg/dL Specimen Performing Laboratory Blood - Arm, [facility], [facility] [place], [facility] [address] [place] [phone] Basic Metabolic Panel (03/08/2017 8:00 AM) Component [...] PATIENTS. Specimen Performing Laboratory Blood - Arm, [facility], [facility] [address] [facility] [place] [address] XR foot 3 views left (02/25/2017 8:32 [...] MD Report Verified Date/Time:02/25/2017 08:37:49 Reading Location: [address] Body Reading Room Procedure Note [...] Report Verified Date/Time: 02/25/2017 08:37:49 Reading Location: [facility] C013Y CT Body Reading Room [...] normal. ST segments normal. T waves normal. Lawrence is normal. Left sided lead use: Posterior [...] Performing Laboratory Urine - Urine, Clean Catch [facility] [address] [place] [address] Narrative DRUGCUTOFF CONC. Cocaine 300 ng/mL Brrostzwsdc51 ng/mL Npclpmohfimoyj687 ng/mL Barbiturate 200 ng/mL Uyebfgsuorgbi86 ng/mL Sixhnm503 ng/mL Methadone 300 ng/mL Amphetamine/ 1000 ng/mL Methamphetamine This assay provides an unconfirmed qualitative test result for the clinical management of patients in emergency situations. Chain of custody not maintained. Some cqdw-xza-nrqlutt medications, as well as adulterants, may cause inaccurate results. Clinical correlation should be applied. A more comprehensive drug screen or confirmation of a detected drug may be performed upon request. POC-Glucose meter (01/19/2017 8:04 PM)Only the most recent of2 resultswithin the time period is included. Component Value Ref Range POC-Glucose Meter 241 (H)Comment: TESTED AT [facility] [address] [facility] 70 - 110 mg/dL [facility] [address] Specimen Performing Laboratory Blood [address] [address] Blood gas, venous (01/19/2017 7:55 PM) Component [...] Specimen Performing Laboratory Blood - Arm, Right [facility] [address] [place] [address] Ketones, blood (01/19/2017 7:55 PM) Component Value Ref Range Ketones, Blood 0.0 <0.4 mmol/L Specimen Performing Laboratory Blood - Arm, Right [facility] [address] [place] [address] XR chest 1 view portable / bedside (01/19/2017 7:51 PM) Specimen Performing Laboratory GE RIS Narrative FINAL REPORT Clinical History: cp Comparison Study: None Findings:The heart and lungs are within normal limits.The pleural spaces are clear.No significant bony or soft tissue abnormalities are seen. Impression: No active cardiopulmonary disease. Signed: Carlos Severino MD Report Verified Date/Time:01/19/2017 19:59:25 Reading Location: [address] Consult Reading Room Procedure Note Interface, External Ris In - 01/19/2017 8:01 PM CDT FINAL REPORT Clinical History: cp Comparison Study: None Findings: The heart and lungs are within normal limits. The pleural spaces are clear. No significant bony or soft tissue abnormalities are seen. Impression: No active cardiopulmonary disease. Signed: Carlos Severino MD Report Verified Date/Time: 01/19/2017 19:59:25 Reading Location: [address] Consult Reading Room Urinalysis w/Microscopic (01/19/2017 7:36 PM)Only the most recent of2 resultswithin the time period is included. Component Value Ref Range Color, UA Light Yellow Clarity, UA Clear Specific [place], UA 1.016 1.001 - 1.035 pH, UA [...] Performing Laboratory Urine - Urine, Clean Catch [facility] [address] [place] [address] Troponin I (01/19/2017 7:33 PM) Component Value Ref Range Troponin I <0.01 0.00 - 0.15 ng/mL Specimen Performing Laboratory Blood - Line, [facility] [address] [place] [address] Narrative Troponin I (TnI) levels must be [...] FEU Specimen Performing Laboratory Blood - Line, [facility] [address] [place] [address] Narrative Intended Use: The D-Dimer Assay can [...] pg/mL Specimen Performing Laboratory Blood - Line, [facility] [address] [place] [address] Creatine Kinase (CK), Total and MB (01/19/2017 7:33 PM) Component Value Ref Range Total CK 57 30 - 300 U/L CK-MB 0.6 0.0 - 4.9 ng/mL MB Relative Index 1.1 % Specimen Performing Laboratory Blood - Line, [facility] [address] [place] [address] Narrative CK-MB Reference Range: <5 Normal 5-10 [...] Specimen Performing Laboratory Blood - Line, Venous [facility] [address] [place] [address] ECG 12 lead (01/19/2017 6:40 PM) Specimen Performing Laboratory [facility] Narrative Ventricular Rate 95 BPM Atrial Rate 95 BPM P-R Interval 132 ms QRS Duration 72 ms Q-T Interval 334 ms QTC Calculation(Bazett) 419 ms P Lawrence 69 degrees R Lawrence 49 degrees T Lawrence 52 degrees Normal sinus rhythm with sinus arrhythmia Nonspecific ST and T wave abnormality Abnormal ECG No previous ECGs available Procedure Note Interface, External Ris In - 01/20/2017 12:01 PM CDT Ventricular Rate 95 BPM Atrial Rate 95 BPM P-R Interval 132 ms QRS Duration 72 ms Q-T Interval 334 ms QTC Calculation(Bazett) 419 ms P Lawrence 69 degrees R Lawrence 49 degrees T Lawrence 52 degrees Normal sinus rhythm with sinus arrhythmia Nonspecific ST and T wave abnormality Abnormal ECG No previous ECGs available CT spine cervical without IV contrast (01/15/2017 5:49 PM) Specimen Performing Laboratory [facility] Narrative FINAL REPORT EXAMINATION: CERVICAL SPINE [...] MD Report Verified Date/Time:01/15/2017 18:25:26 Reading Location: [address] Reading Room Procedure Note Interface, External [...] Report Verified Date/Time: 01/15/2017 18:25:26 Reading Location: [address] Reading Room brain without IV contrast (01/15/2017 5:49 PM) Specimen Performing Laboratory [facility] Narrative FINAL REPORT EXAMINATIONNONCONTRAST HEAD CT [...] MD Report Verified Date/Time:01/15/2017 18:14:13 Reading Location: [address] Reading Room Procedure Note Interface, External [...] Report Verified Date/Time: 01/15/2017 18:14:13 Reading Location: [address] Reading Room spine lumbar 2 or [...] MD Report Verified Date/Time:12/12/2016 23:13:07 Reading Location: [address] Reading Room Procedure Note Interface, External [...] Report Verified Date/Time: 12/12/2016 23:13:07 Reading Location: [address] Reading Room spine thoracic 2 views [...] MD Report Verified Date/Time:12/12/2016 23:13:07 Reading Location: [address] Reading Room Procedure Note Interface, External [...] Report Verified Date/Time: 12/12/2016 23:13:07 Reading Location: [address] Reading Room elbow 3 views min right (09/25/2016 3:35 PM) Specimen Performing Laboratory [facility] RIS Impressions : No radiographic abnormalities are visualized in the right elbow. Signed: Kajal Dahl MD Report Verified Date/Time:09/25/2016 15:42:48 Reading Location: [facility] [address] [place] [address] Reading Room Narrative FINAL REPORT RIGHT ELBOW [...] Report Verified Date/Time: 09/25/2016 15:42:48 Reading Location: [facility] B1 C013T Transitional Reading Room after 09/17/2016
--- OUTSIDE RECORDS SUMMARY | 2017-09-18 10:37 | XMS REPORT ---
:1980 [facility] [address] [place] [address] Dr. Dao [address] [place] [id number] Care Team Providers Name Role Phone DR [...] ID 2017-08-19 2017-08-19 Emergency E ROCAEL BETH [facility] [id number] 15:33:00 18:45:00 2017-08-11 2017-08-11 Emergency E JEMMA CRAVEN [facility] [id number] 11:55:00 13:29:00 2017-04-27 2017-04-27 Emergency E ROSANA [facility] [id number] 08:54:00 10:01:00 USMAN 2017-04-20 2017-04-20 Outpatient E TAHIR [facility] [id number] 11:00:00 14:40:00 EBONY 2016-12-12 2016-12-12 Emergency E SHEIKH [facility] [id number] 20:40:00 21:38:00 WASIM Results Test Description Test [...] (test code=60A) 90 IU/L 73-393 COMPREHENSIVE METABOLIC [id number] 16:53:00 Test Item Value Reference Range Comments [...] (test code=31A) 15 IU/L <=78 DRUGS OF [id number] 16:50:00 Test Item Value Reference Range Comments [...] ng/mL Opiates 2000 ng/mL PRO TIME AND [id number] 16:45:00 Test Item Value Reference Range Comments [...] or LMW Heparin. Order Code is ANTI-XA [id number] 16:39:00 Test Item Value Reference Range Comments [...] MORPH (test code=RBCMOR) NORMAL XR SPINE CERVICAL [id number] 13:05:14Cervical spine, 6 viewsLocation code: J8Dxqvdspz history: M54.2: CERVICALGIAComments: AP, oblique, open mouth odontoid and lateral views of the cervicalspine demonstrate no displaced fracture or malalignment. Intervertebral discspaces are maintained. The oblique projections demonstrate no significantforaminal narrowing. The soft tissues are unremarkable. Impression: No acute abnormality.XR FOOT LEFT 1 OR 2 [id number] 09:35:56EXAMINATION: XR ANKLE LEFT 2 VIEW, [...] Articular spaces are wellmaintained.XR ANKLE LEFT 2 [id number] 09:35:56EXAMINATION: XR ANKLE LEFT 2 VIEW, XR [...] spaces are wellmaintained.MRA NECK W & WO [id number] 14:42 :31MRA OF THE CAROTIDS WITHOUT CONTRASTHISTORY: [...] bilateral common or internalcarotid arteries.MRA HEAD W/O [id number] 14: 28:18MRA OF THE TORRES MART[place] OF [place] WITHOUT CONTRASTHISTORY: Near syncopal episodeTECHNIQUE: [...] No aneurysmal dilatation.MRI BRAIN W/ AND W/O [id number] 13:51:27MRI brain with and without contrastLocation code: P7Okednfsv history: Near syncopeTechnique: Multiplanar multisequence MR imaging [...] with and without contrast.GLUCOMETER GLUCOSE- LAB USE [id number] 11:46:00 Test Item Value Reference Range Comments GLUCOMETER (test code=GMG) 161 mg/dL 70-100 CLEANED METERMeter ID: [id number]: 3966 WILFRED RAJU XR ELBOW LEFT COMPLETE 3 [id number] 10:38:15Right Elbow, 3 viewsLocation Code: L7ATMBHDAH HISTORY: Injury, fallCOMMENTS: AP, lateral, and oblique views of the right elbow demonstrate noacute fracture or malalignment. The soft tissues are unremarkable.IMPRESSION: No acute radiographic abnormality.XR CHEST 2 [id number] 10:38:03PA and lateral chest, 2 views.Location code: T3QTJHINBQ HISTORY: Dizziness, fallCOMPARISON: NoneCOMMENTS: The lungs are clear and well inflated. The costophrenic angles aresharp. The cardiomediastinalsilhouette is unremarkable. The bones are intact.IMPRESSION: No acute abnormalityXR SHOULDER LEFT 3 [id number] 10:37:47Left shoulder, 3 viewsLocation Code: J5YMGXCVLR HISTORY: Fall, injury,COMMENTS: AP views in internaland external rotation along with a transscapularY view of the left shoulder were obtained. There is no acute fracture ormalalignment. The soft tissues are unremarkable.IMPRESSION: No acute abnormality.XR HUMERUS LEFT AP & amp; [id number] 10:37:28Left humerus, 2 viewsLocation Code: J1Xidxrfky history: Trauma, injury, pain Comment: AP and lateralviews of the left humerus demonstrate no displacedfracture or malalignment. The soft tissues are unremarkable.Impression:No acute radiographic abnormality.[id number] 10: 36:00 Test Item Value Reference Range Comments D-DIMER (test code=DDI) <200 ng/mL D-DU 0-234 D-DIMER COMMENT (test *Level to rule out DVT or PE: code=DDCOM) <235 ng/mL D-DU* COMPREHENSIVE METABOLIC [id number] 10:36:00 Test Item Value Reference Range Comments [...] ALT (test code=31A) 18 IU/L <=78 CARDIAC [id number] 10:19:00 Test Item Value Reference Range Comments TROPONIN I (test code=A84) <0.015 ng/mL 0.000-0.045 CKMB (test code=A49) <1.0 ng/mL <=3.6 CPK (test code=32A) 38 IU/L 39-308 PRO TIME AND [id number] 10:12:00 Test Item Value Reference Range Comments [...] MORPH (test code=RBCMOR) NORMAL CT HEAD W/O [id number] 10:02:40CT brain without contrastLocation code: Z4XOBUIDDY HISTORY: Dizziness, headache COMPARISON: None.TECHNIQUE: Routine unenhanced [...] code=60A) 81 IU/L 73-393 CBC (INCLUDES AUTOMATED DIFFERENTIAL)*[id number] 13:47:00 Test Item Value Reference Range Comments [...] NO RBC MORPH (test code=WRBCMOR) NORMAL CT, [id number] 09:15:00Reason for exam:->ABDOMINAL PAINReason for exam :->DIARRHEAReason [...] MDReport Verified Date/Time: 03/08/2017 09:15:05 Reading Location: [facility] B1 C013X Ortho Consult Reading Room BASIC METABOLIC [id number] 08:21:00 Test Item Value Reference Range Comments SODIUM (BEAKER) (test 138 meq/L 135-148 exux=727) POTASSIUM (BEAKER) (test 3.9 meq/L 3.6-5.5 sdzq=904) CHLORIDE (BEAKER) (test 108 meq/L 98-106 jmkx=533) CO2 (BEAKER) (test 24 meq/L 24-32 vfmq=596) BLOOD UREA NITROGEN 7 mg/dL 10-26 (BEAKER) (test vmty=362) CREATININE (BEAKER) (test 0.56 mg/dL 0.50-1.20 gfbn=590) GLUCOSE RANDOM (BEAKER) 138 mg/dL 70-110 (test ffoy=301) CALCIUM (BEAKER) (test 8.9 mg/dL 8.5-10.5 plzw=094) EGFR (BEAKER) (test 163 mL/min/1.73 sq m ESTIMATED GFR IS NOT ynnu=8544) ACCURATE CREATININE CLEARANCE IN PREDICTING GLOMERULAR FILTRATION RATE. ESTIMATED GFR IS NOT APPLICABLE FOR DIALYSIS PATIENTS. AST (SGOT)2017-03-08 08:18:00 Test Item Value Reference Range Comments AST (SGOT) (BEAKER) (test oert=785) 11 U/L 5-40 ALT (SGPT)2017-03-08 08:18:00 Test Item Value Reference Range Comments ALT (SGPT) (BEAKER) (test qbgp=835) 21 U/L 5-50 [id number] 08:18:00 Test Item Value Reference Range Comments LIPASE (BEAKER) (test rpkq=936) 37 U/L 40-240 BILIRUBIN, ADULT [id number] 08:16:00 Test Item Value Reference Range Comments BILIRUBIN TOTAL (BEAKER) (test qqap=108) 0.3 mg/dL 0.1-1.2 CBC W/PLT COUNT & AUTO [id number] 08:13:00 Test Item Value Reference Range Comments WHITE BLOOD CELL COUNT (BEAKER) (test 13.1 10e3/ L 4.0-10.0 lzgx=817) RED BLOOD CELL COUNT (BEAKER) (test gzmq=477) 4.85 10e6/ L 4.20-5.80 HEMOGLOBIN (BEAKER) (test xrsi=185) 13.9 g/dL 13.0-16.8 HEMATOCRIT (BEAKER) (test hihb=640) 42.8 % 40.0-50.0 MEAN CORPUSCULAR VOLUME (BEAKER) (test 88.3 fL 82.0-98.0 grcx=731) MEAN CORPUSCULAR HEMOGLOBIN (BEAKER) (test 28.6 pg 27.0-33.0 amxf=545) MEAN CORPUSCULAR HEMOGLOBIN CONC (BEAKER) 32.4 g/dL 32.0-36.0 (test zmiq=835) RED CELL DISTRIBUTION WIDTH (BEAKER) (test 13.2 % 10.3-14.2 ycyx=230) PLATELET COUNT (BEAKER) (test isvw=551) 366 10e3/ L 150-430 MEAN PLATELET VOLUME (BEAKER) (test twrr=153) 6.9 fL 6.5-10.5 NEUTROPHILS RELATIVE PERCENT (BEAKER) (test 77 % xhyf=981) LYMPHOCYTES RELATIVE PERCENT (BEAKER) (test 12 % bksz=600) MONOCYTES RELATIVE PERCENT (BEAKER) (test 6 % xabg=965) EOSINOPHILS RELATIVE PERCENT (BEAKER) (test 4 % cbpf=203) BASOPHILS RELATIVE PERCENT (BEAKER) (test 1 % kwrn=893) NEUTROPHILS ABSOLUTE COUNT (BEAKER) (test 10.10 10e3/ L 1.80-8.00 tkju=666) LYMPHOCYTES ABSOLUTE COUNT (BEAKER) (test 1.61 10e3/ L 1.48-4.50 hpqh=763) MONOCYTES ABSOLUTE COUNT (BEAKER) (test 0.83 10e3/ L 0.00-1.30 mzhi=794) EOSINOPHILS ABSOLUTE COUNT (BEAKER) (test 0.46 10e3/ L 0.00-0.50 llve=736) BASOPHILS ABSOLUTE COUNT (BEAKER) (test 0.10 10e3/ L 0.00-0.20 hqnm=313) RAD, FOOT, MIN 3 VIEWS, [id number] 08:37:00Reason for exam:->FOOT INJURYleft foot injury , [...] MDReport Verified Date/Time: 02/25/2017 08:37:49 Reading Location: [facility] C013Y CT Body Reading Room CT ABDOMEN AND PELVIS WITH CONTRAST*WW*2017-02-25 03:54:12CT ABDOMEN AND PELVIS WITH CONTRAST*WW* Location:[address] hours services are provided 02/25/2017 2:48 AMIndication:RLQ pain.Comparison: Not availableTechnique: Axial CT of the abdomen and pelvis followingthe bolusadministration of nonionic intravenous contrast. Sagittal and coronalreformatted images areprovided for interpretation. All CT scans at [facility] use dose modulation, iterative reconstruction, [...] (test code=WAUAM) NO NO CBC (INCLUDES AUTOMATED DIFFERENTIAL)*[id number] 02:15:00 Test Item Value Reference Range Comments [...] MORPH (test code=WRBCMOR) NORMAL RAPID DRUG SCREEN, [id number] 20:58:00 Test Item Value Reference Range Comments BARBITURATE URINE (BEAKER) (test dhhi=455) Negative Negative BENZODIAZEPINE SCREEN URINE (BEAKER) (test Negative Negative yheu=295) COCAINE (METAB.) SCREEN (BEAKER) (test xurv=9895) Negative Negative METHADONE SCREEN (BEAKER) (test iawv=6257) Negative Negative OPIATE SCREEN URINE (BEAKER) (test hdvu=168) Positive Negative CANNABINOID SCREEN URINE (BEAKER) (test kppm=308) Positive Negative AMPH/METHAMPH SCREEN (BEAKER) (test caya=1404) Negative Negative PHENCYCLIDINE SCREEN URINE (BEAKER) (test gbvx=183) Negative Negative DRUG CUTOFF CONC.Cocaine 300 ng/mL Cannabinoid 50 ng/mLBenzodiazepine 200 ng/mLBarbiturate 200 ng/ mLPhencyclidine 25 ng/mLOpiate 300 ng/mLMethadone 300 ng/mLAmphetamine/ 1000 ng/mL MethamphetamineThis assay provides an unconfirmed qualitative test result for the clinical management of patients in emergency situations. Chain of custody not maintained. Some tsao-def-krfijrr medications, as well as adulterants, may cause inaccurate results. Clinical correlation should be applied. A more comprehensivedrug screen or confirmation of a detected drug may be performed upon request.URINALYSIS W/ [id number] 20:27:00 Test Item Value Reference Range Comments COLOR (BEAKER) (test jpku=365) Light Yellow CLARITY (BEAKER) (test unwv=609) Clear SPECIFIC GRAVITY UA (BEAKER) (test kemi=078) 1.016 1.001-1.035 PH UA (BEAKER) (test frfj=384) 6.0 5.0-8.0 PROTEIN UA (BEAKER) (test qyvx=654) Negative Negative GLUCOSE UA (BEAKER) (test lnpb=637) >500 mg/dL Negative KETONES UA (BEAKER) (test hykz=606) Negative Negative BILIRUBIN UA (BEAKER) (test gabg=650) Negative Negative BLOOD UA (BEAKER) (test tlzl=418) Negative Negative NITRITE UA (BEAKER) (test smqb=814) Negative Negative LEUKOCYTE ESTERASE UA (BEAKER) (test wili=852) Negative Negative UROBILINOGEN UA (BEAKER) (test gtba=652) < mg/dL 0.2-1.0 RBC UA (BEAKER) (test xnze=359) < /HPF WBC UA (BEAKER) (test xmhf=758) 0 /HPF BACTERIA (BEAKER) (test tcwi=420) Rare MUCUS (BEAKER) (test krmz=4073) Rare SOURCE(BEAKER) (test bkar=9293) KETONE, [id number] 20:12:00 Test Item Value Reference Range Comments KETONES, BLOOD (BEAKER) (test nkgp=1016) 0.0 mmol/L <0.4 POCT-GLUCOSE [id number] 20:08:00 Test Item Value Reference Range Comments POC-GLUCOSE METER (BEAKER) 241 mg/dL 70-110 TESTED AT [facility] [address] [facility] (test vgom=4639) [facility] [address] BLOOD GAS, [id number] 20:05:00 Test Item Value Reference Range Comments PH VENOUS (BEAKER) (test rdqy=426) 7.42 7.32-7.42 PCO2 VENOUS (BEAKER) (test gkyo=822) 36 mmHg 41-51 PO2 VENOUS (BEAKER) (test amck=042) 43 mmHg 25-40 O2 SATURATION VENOUS (BEAKER) (test yejc=072) 80.3 % 40.0-70.0 HCO3 VENOUS (BEAKER) (test resd=664) 23 mmol/L 21-29 BASE EXCESS VENOUS (BEAKER) (test pogt=643) -1.4 mmol/L -2.0-3.0 PATIENT TEMPERATURE (BEAKER) (test axwm=0184) 36.7 C CREATINE KINASE (CK), TOTAL AND [id number] 20:05:00 Test Item Value Reference Range Comments CREATINE KINASE TOTAL (BEAKER) (test zdip=932) 57 U/L 30-300 CREATINE KINASE-MB (BEAKER) (test rfgq=294) 0.6 ng/mL 0.0-4.9 CREATINE KINASE-MB INDEX (BEAKER) (test cigc=668) 1.1 % CK-MB Reference Range:<5 Normal5-10 Borderline>10 AbnormalTROPONIN [id number] 20:05:00 Test Item Value Reference Range Comments TROPONIN I (BEAKER) (test pjzp=978) < ng/mL 0.00-0.15 Troponin I (TnI) levels [...] Range Comments B-TYPE NATRIURETIC PEPTIDE (BEAKER) (test oqos=701) < pg/mL 0-100 [id number] 19:59:00 Test Item Value Reference Range Comments D-DIMER QUANTITATIVE (BEAKER) (test gnyg=344) < MG/L FEU <0.50 Intended Use: The [...] within 95-100% range.RAD, CHEST, 1 VIEW, NON [id number] 19:59:00Reason for exam:->cpShould this be performed at the bedside?->YesFINAL REPORT Clinical History: cp Comparison Study: None Findings: The heartand lungs are within normal limits. The pleural spaces are clear. No significant bony or soft tissue abnormalities are seen. Impression: No active cardiopulmonary disease. Signed: Carlos Severino MDReport Verified Date/Time: 01/19/2017 19:59:25 Reading Location: [address] Consult Reading Room COMPREHENSIVE METABOLIC [id number] 19:58:00 Test Item Value Reference Range Comments TOTAL PROTEIN (BEAKER) 6.7 gm/dL 6.0-8.5 Specimen moderately (test pkfm=745) hemolyzed ALBUMIN (BEAKER) (test 3.5 g/dL 3.5-5.0 Specimen moderately oneo=6714) hemolyzed ALKALINE PHOSPHATASE 84 U/L 30-115 (BEAKER) (test fmmi=953) BILIRUBIN TOTAL (BEAKER) 0.2 mg/dL 0.1-1.3 Specimen moderately (test ctrh=324) hemolyzed SODIUM (BEAKER) (test 138 meq/L 135-148 nmgd=827) POTASSIUM (BEAKER) (test 3.8 meq/L 3.5-5.5 Specimen moderately ndcd=948) hemolyzed CHLORIDE (BEAKER) (test 106 meq/L 98-106 mtnd=526) CO2 (BEAKER) (test 21 meq/L 20-31 iscu=722) BLOOD UREA NITROGEN 6 mg/dL 10-26 (BEAKER) (test holh=729) CREATININE (BEAKER) (test 0.84 mg/dL 0.50-1.20 Specimen moderately dcjh=825) hemolyzed GLUCOSE RANDOM (BEAKER) 289 mg/dL 70-110 (test pwkw=913) CALCIUM (BEAKER) (test 8.8 mg/dL 8.5-10.5 tibh=479) AST (SGOT) (BEAKER) (test 20 U/L 5-40 Specimen moderately dpch=636) hemolyzed ALT (SGPT) (BEAKER) (test 13 U/L 6-50 Specimen moderately hife=805) hemolyzed EGFR (BEAKER) (test 103 mL/min/1.73 sq ESTIMATED GFR IS NOT xuki=1251) m ACCURATE CREATININE CLEARANCE IN PREDICTING GLOMERULAR FILTRATION RATE. ESTIMATED GFR IS NOT APPLICABLE FOR DIALYSIS PATIENTS. CBC W/PLT COUNT & AUTO [id number] 19:42:00 Test Item Value Reference Range Comments WHITE BLOOD CELL COUNT (BEAKER) (test agxy=217) 12.4 K/ L 4.0-10.0 RED BLOOD CELL COUNT (BEAKER) (test josq=585) 4.98 M/ L 4.20-5.80 HEMOGLOBIN (BEAKER) (test abxy=364) 14.4 GM/DL 13.0-16.8 HEMATOCRIT (BEAKER) (test nydy=714) 43.5 % 40.0-50.0 MEAN CORPUSCULAR VOLUME (BEAKER) (test qniq=137) 87.4 fL 82.0-98.0 MEAN CORPUSCULAR HEMOGLOBIN (BEAKER) (test 28.8 pg 27.0-33.0 gkhh=095) MEAN CORPUSCULAR HEMOGLOBIN CONC (BEAKER) (test 33.0 GM/DL 32.0-36.0 karg=952) RED CELL DISTRIBUTION WIDTH (BEAKER) (test 13.9 % 12.0-15.0 rrzm=119) PLATELET COUNT (BEAKER) (test dvzy=157) 313 K/CU MM 150-430 MEAN PLATELET VOLUME (BEAKER) (test krlc=395) 8.6 fL 6.5-10.5 NUCLEATED RED BLOOD CELLS (BEAKER) (test 0 /100 WBC 0-0 nodo=748) NEUTROPHILS RELATIVE PERCENT (BEAKER) (test 60 % mrst=769) LYMPHOCYTES RELATIVE PERCENT (BEAKER) (test 29 % copw=145) MONOCYTES RELATIVE PERCENT (BEAKER) (test 7 % hzjr=747) EOSINOPHILS RELATIVE PERCENT (BEAKER) (test 3 % gbtn=639) BASOPHILS RELATIVE PERCENT (BEAKER) (test 1 % znpy=907) NEUTROPHILS ABSOLUTE COUNT (BEAKER) (test 7.40 K/ L 1.80-8.00 xzhd=196) LYMPHOCYTES ABSOLUTE COUNT (BEAKER) (test 3.60 K/ L 1.48-4.50 uuzv=590) MONOCYTES ABSOLUTE COUNT (BEAKER) (test 0.80 K/ L 0.00-1.30 xylw=096) EOSINOPHILS ABSOLUTE COUNT (BEAKER) (test 0.40 K/ L 0.00-0.50 dcfu=613) BASOPHILS ABSOLUTE COUNT (BEAKER) (test 0.20 K/ L 0.00-0.20 iwad=553) POCT-GLUCOSE [id number] 19:02:00 Test Item Value Reference Range Comments POC-GLUCOSE METER (BEAKER) 367 mg/dL 70-110 TESTED AT [address] (test jjki=1785) [facility] [address] CT, SPINE, CERVICAL, WO [id number] 18:25:00Reason for exam:->NECK PAINWhat is the patient's [...] Mittal Verified Date/Time: 01/15/2017 18:25:26 Reading Location: [address] Reading Room Electronically signed by: NBA MITTAL M.D.on 01/15/2017 06:25 PMCT, BRAIN, WITHOUT [id number] 18:14:00Reason for exam:->NECK PAINWhat is the patient's [...] Mittal MDRrafyort Verified Date/Time: 18:14:13 Reading Location: [address] Reading Room XR KNEE RIGHT 3 [id number] 22:22:15EXAM: Portable right knee series, 3 viewsLocation: [id number]: Fell on right knee and twisted right kneeCOMPARISON: None.DISCUSSION: Frontal, oblique, and crosstable lateral views of the right kneeare submitted. No fracture, dislocation, lytic or blastic lesions areidentified. Joint spaces appear well preserved. No joint effusion is seen.IMPRESSION:No acute bony abnormalities.XR ANKLE RIGHT COMPLETE 3 [id number] 22:21:22EXAM: Right ankle series, 3 viewsLocation: [id number]: Fell, twisted right ankleCOMPARISON: None.DISCUSSION: Frontal, oblique, and lateral views of the right ankle aresubmitted. There is a questionable hairline fracture of the distal fibula, onlyseen on the oblique view near the ankle mortise. No other evidence of fractureis seen.IMPRESSION: Questionable hairline fracture of the distal fibula.RAPID DRUG SCREEN, [id number] 23:10:00 Test Item Value Reference Range Comments BARBITURATE URINE (BEAKER) (test tery=546) Negative Negative BENZODIAZEPINE SCREEN URINE (BEAKER) (test Negative Negative kxkn=084) COCAINE (METAB.) SCREEN (BEAKER) (test lpph=5285) Negative Negative METHADONE SCREEN (BEAKER) (test ogrx=0723) Negative Negative OPIATE SCREEN URINE (BEAKER) (test hrjz=721) Positive Negative CANNABINOID SCREEN URINE (BEAKER) (test dvzr=937) Negative Negative AMPH/METHAMPH SCREEN (BEAKER) (test qfqj=6894) Negative Negative PHENCYCLIDINE SCREEN URINE (BEAKER) (test gddt=436) Negative Negative DRUG CUTOFF CONC.Cocaine 300 ng/mL Cannabinoid 50 ng/mLBenzodiazepine 200 ng/mLBarbiturate 200 ng/ mLPhencyclidine 25 ng/mLOpiate 300 ng/mLMethadone 300 ng/mLAmphetamine/ 1000 ng/mL MethamphetamineThis assay provides an unconfirmed qualitative test result for the clinical management of patients in emergency situations. Chain of custody not maintained. Some qbvj-alo-izxvekg medications, as well as adulterants, may cause inaccurate results. Clinical correlation should be applied. A more comprehensivedrug screen or confirmation of a detected drug may be performed upon request.URINALYSIS W/ [id number] 22:55:00 Test Item Value Reference Range Comments COLOR (BEAKER) (test dyyt=397) Yellow CLARITY (BEAKER) (test ljpk=767) Clear SPECIFIC GRAVITY UA (BEAKER) (test xoup=663) 1.025 1.001-1.035 PH UA (BEAKER) (test iiwx=124) 6.0 5.0-8.0 PROTEIN UA (BEAKER) (test mqzh=546) Negative Negative GLUCOSE UA (BEAKER) (test sqvs=956) Negative Negative KETONES UA (BEAKER) (test qsig=460) Negative Negative BILIRUBIN UA (BEAKER) (test xvvh=764) Negative Negative BLOOD UA (BEAKER) (test mdfv=439) Negative Negative NITRITE UA (BEAKER) (test tjui=553) Negative Negative LEUKOCYTE ESTERASE UA (BEAKER) (test qsln=040) Negative Negative UROBILINOGEN UA (BEAKER) (test arzv=868) 0.2 mg/dL 0.2-1.0 BACTERIA (BEAKER) (test ekkg=320) Occasional MUCUS (BEAKER) (test itzd=4845) Many RBC UA-MANUAL (BEAKER) (test lumx=4832) <5 /HPF WBC UA-MANUAL (BEAKER) (test erux=1522) <5 /HPF SQUAMOUS EPITHELIAL MANUAL (BEAKER) (test <5 /HPF irgh=5350) SOURCE(BEAKER) (test msnf=0332) XR SHOULDER LEFT 3 [id number] 09:00:14EXAMINATION: XR SHOULDER LEFT 3 VIEWS.LOCATION: D4.HISTORY: shoulder pain while carrying heavy load.COMPARISON: Left shoulder x-ray 04/16/2015.FINDINGS/IMPRESSION:Three views of left shoulder demonstrates acute osseous abnormality. Nodislocation. Left clavicle appears intact. Visualized left lung parenchymaappears unremarkable.
[2017-09-18] MEDS ORDERED: ACETAMINOPHEN 500 MG TAB ONE (12:14)
--- NOTE | 2017-09-18 12:26 | RAD REPORT ---
EXAM DESCRIPTION: RAD - C Spine W Obliques - 09/18/2017 12:04 pm CLINICAL HISTORY: Neck pain FINDINGS: No fracture is is noted. No dislocation is seen
--- NOTE | 2017-09-18 12:29 | RAD REPORT ---
EXAM DESCRIPTION: RAD - Lumbar Spine 3 Views - 09/18/2017 12:04 pm CLINICAL HISTORY: Back pain FINDINGS: The alignment of the lumbar spine is satisfactory. No fracture or dislocation is seen.
--- NOTE | 2017-09-18 12:37 | RAD REPORT ---
EXAM DESCRIPTION: Manuel Gaines (2 Views)09/18/2017 12:04 pm CLINICAL HISTORY: Chest pain COMPARISON: September 03, 2017 FINDINGS: The lungs appear clear of acute infiltrate. The heart is normal size IMPRESSION: No acute abnormalities displayed
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
== END 2017-09-18 13:32 | disposition home or self-care (01) ==
LOC: ER 10:34
DX: S13.4XXA Sprain of ligaments of cervical spine, initial encounter (principal); S20.229A Contusion of unspecified back wall of thorax, initial encounter; V86.59XA Driver of other special all-terrain or other off-road motor vehicle injured in nontraffic accident, initial encounter; Z79.82 Long term (current) use of aspirin; Z88.6 Allergy status to analgesic agent; Z88.8 Allergy status to other drugs, medicaments and biological substances; F17.210 Nicotine dependence, cigarettes, uncomplicated; E11.9 Type 2 diabetes mellitus without complications
CPT/HCPCS: 71046; 72050; 72100; 99284

== ENCOUNTER 2017-10-02 14:53 | Emergency (ER) | payer SELFPAY ==
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
--- OUTSIDE RECORDS SUMMARY | 2017-10-02 14:58 | XMS REPORT | Clinical Summary ---
:[address] [facility] Address [address] [place] [address] Phone Care Team Providers Name Role Phone Unavailable Primary Care Provider Unavailable Allergies Active Allergy Reactions Severity Noted Date Comments Cyclobenzaprine Hives 08/11/2016 Cyclobenzaprine Hcl Itching 09/25/2016 Ibuprofen Other (See Comments) 09/25/2016 Stomach upset Ibuprofen Other (See Comments) 09/25/2016 Stomach upset Nsaids (Non-Steroidal 01/19/2017 Anti-Inflammatory Drug) Ketorolac Itching 09/28/2017 Current Medications Prescription Sig. Disp. Refills Start Date End Date Status metFORMIN Take 500 mg by Active (GLUCOPHAGE) 500 MG mouth 2 (two) tablet times daily with breakfast and dinner. gabapentin Take 300 mg by Active (NEURONTIN) 300 MG mouth 3 (three) capsule times daily. traMADol (ULTRAM) Take 1 tablet 30 tablet 0 09/28/2017 Active 50 mg tablet (50 mg total) 8 by mouth every 6 (six) hours as needed for Pain for up to 10 days. Max Daily Amount: 200 mg acetaminophen-codei Take 1 tablet 7 tablet 0 [...] tablet by mouth daily for 5 days. ondansetron Take 1 tablet 10 tablet 0 03/08/2017 Discontinued (ZOFRAN) 4 MG (4 mg total) by 8 tablet mouth 3 (three) times daily as needed for Nausea for up to 10 doses. Active Problems Not on file Encounters Date Type Specialty Care Team Description 09/28/2017 Emergency Emergency Medicine Jennifer Combs MD Fall, initial encounter (Primary Dx);Acute pain of right knee;Acute right ankle pain;Right foot pain;Swelling of foot joint, right;Sprain of anterior talofibular ligament of right ankle, initial encounter 03/08/2017 Emergency Emergency Medicine Gilson Hoff, Right lower quadrant MD abdominal pain (Primary Dx);Nausea and vomiting, intractability [...] encounter (Primary Dx);Lumbar back sprain, initial encounter after 10/01/2016 Social History Tobacco Use Types Packs/Day Years Used Date Current Every Day Smoker Cigarettes 1 Smokeless Tobacco: Never Used Alcohol Use Drinks/Week oz/Week Comments No Sex Assigned at Date Recorded Not on file Last Filed Vital Signs Vital Sign Reading Time Taken Blood Pressure 154/69 09/28/2017 9:21 AM CDT Pulse 67 09/28/2017 9:21 AM CDT Temperature 36.6 C (97.9 F) 09/28/2017 9:21 AM CDT Respiratory Rate 20 09/28/2017 9:21 AM CDT Oxygen Saturation 99% 09/28/2017 9:21 AM CDT Inhaled Oxygen Concentration - - Weight 87.1 kg (192 lb) 09/28/2017 7:43 AM CDT Height 177.8 cm (5' 10") 09/28/2017 7:43 AM CDT Body Mass Index 27.55 09/28/2017 7:43 AM CDT Plan of Treatment Not on file Results XR foot 3 views right (09/28/2017 8:38 AM) Specimen Performing Laboratory [facility] Narrative FINAL REPORT TECHNIQUE: Frontal, lateral, and oblique radiographs of the right foot dated 09/28/2017 HISTORY: Fall, ankle pain COMPARISON: None. FINDINGS: No fracture or dislocation. Bones are normal in density. No joint space narrowing. Lisfranc joint is well aligned on these nonstress views. No bone erosion or soft tissue nodule seen. No radiodense foreign body or subcutaneous emphysema. IMPRESSION: No fracture or dislocation. Signed: Ariel Hernandez MD Report Verified Date/Time:09/28/2017 08:45:31 Reading Location: [facility] Radiology Reading Room Procedure Note Interface, External Ris In - 09/28/2017 8:47 AM CDT FINAL REPORT TECHNIQUE: Frontal, lateral, and oblique radiographs of the right foot dated 09/28/2017 HISTORY: Fall, ankle pain COMPARISON: None. FINDINGS: No fracture or dislocation. Bones are normal in density. No joint space narrowing. Lisfranc joint is well aligned on these nonstress views. No bone erosion or soft tissue nodule seen. No radiodense foreign body or subcutaneous emphysema. IMPRESSION: No fracture or dislocation. Signed: Ariel Hernandez MD Report Verified Date/Time: 09/28/2017 08:45:31 Reading Location: [facility] Radiology Reading Room ankle 3 views right (09/28/2017 8:38 AM) Specimen Performing Laboratory [facility] Narrative FINAL REPORT Ankle, right, three images INDICATION: Fall, ankle pain COMPARISON: None available IMPRESSION: There is soft tissue swelling. There is no evidence of acute fracture or dislocation. The joint spaces are maintained. A small posterior calcaneal spur is present. Signed: Deisi Waterman MD Report Verified Date/Time:09/28/2017 08:51:13 Reading Location: [facility] Radiology Reading Room Procedure Note Interface, External Ris In - 09/28/2017 8:53 AM CDT FINAL REPORT Ankle, right, three images INDICATION: Fall, ankle pain COMPARISON: None available IMPRESSION: There is soft tissue swelling. There is no evidence of acute fracture or dislocation. The joint spaces are maintained. A small posterior calcaneal spur is present. Signed: Deisi Waterman MD Report Verified Date/Time: 09/28/2017 08:51:13 Reading Location: [facility] Radiology Reading Room knee complete 4 views right (09/28/2017 8:38 AM) Specimen Performing Laboratory [facility] Narrative FINAL REPORT Knee, right, four images INDICATION: Fall COMPARISON: None available IMPRESSION: There is no evidence of acute fracture or dislocation. There is negligible joint space loss with no significant joint effusion seen. There is mild patellar enthesopathy. The soft tissues are grossly unremarkable. Signed: Deisi Waterman MD Report Verified Date/Time:09/28/2017 08:50:03 Reading Location: [facility] Radiology Reading Room Procedure Note Interface, External Ris In - 09/28/2017 8:52 AM CDT FINAL REPORT Knee, right, four images INDICATION: Fall COMPARISON: None available IMPRESSION: There is no evidence of acute fracture or dislocation. There is negligible joint space loss with no significant joint effusion seen. There is mild patellar enthesopathy. The soft tissues are grossly unremarkable. 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 Specimen Performing Laboratory Blood Narrative The following orders were created for panel order CBC with platelet count + automated diff. Procedure Abnormality Status --------- ------ CBC with platelet count ...[[id number]]AbnormalFinal result Please view results for these tests on the individual orders. ALT (SGPT) (03/08/2017 8:00 AM) Component Value Ref Range ALT 21 5 - 50 U/L Specimen Performing Laboratory Blood - Arm, [facility], COUNTS INCLUDE 234 BEDS AT THE [facility] [address] [place] [address] AST (SGOT) (03/08/2017 8:00 AM) Component Value Ref Range AST 11 5 - 40 U/L Specimen Performing Laboratory Blood - Arm, [facility], COUNTS INCLUDE 234 BEDS AT THE [facility] [address] [place] [address] Lipase (03/08/2017 8:00 AM) Component Value Ref Range Lipase 37 (L) 40 - 240 U/L Specimen Performing Laboratory Blood - Arm, [facility], COUNTS INCLUDE 234 BEDS AT THE [facility] [address] [place] [address] Bilirubin, adult total (03/08/2017 8:00 AM) Component Value Ref Range Total Bilirubin 0.3 0.1 - 1.2 mg/dL Specimen Performing Laboratory Blood - Arm, [facility], COUNTS INCLUDE 234 BEDS AT THE [facility] [address] [place] [address] Basic Metabolic Panel (03/08/2017 8:00 AM) Component [...] Performing Laboratory Blood - Arm, Right [facility] [address] [place] [address] XR foot 3 views left (02/25/2017 8:32 [...] MD Report Verified Date/Time:02/25/2017 08:37:49 Reading Location: [facility] C013Y CT Body Reading Room Procedure Note Interface, [...] Report Verified Date/Time: 02/25/2017 08:37:49 Reading Location: [facility] B1 C013[address] Body Reading Room ECG Interpretation [...] normal. ST segments normal. T waves normal. [place] is normal. Left sided lead use: Posterior [...] Performing Laboratory Urine - Urine, Clean Catch [facility] [address] [place] [address] Narrative DRUGCUTOFF CONC. Cocaine 300 ng/mL Djbmrvdfavh70 ng/mL Nzpvhruvwnxdqd154 ng/mL Barbiturate 200 ng/mL Vdcjcimnidxhh04 ng/mL Ztcfuz286 ng/mL Methadone 300 ng/mL Amphetamine/ 1000 ng/mL Methamphetamine This assay provides an unconfirmed qualitative test result for the clinical management of patients in emergency situations. Chain of custody not maintained. Some etus-nqd-rezqmww medications, as well as adulterants, may cause inaccurate results. Clinical correlation should be applied. A more comprehensive drug screen or confirmation of a detected drug may be performed upon request. POC-Glucose meter (01/19/2017 8:04 PM)Only the most recent of2 resultswithin the time period is included. Component Value Ref Range POC-Glucose Meter 241 (H)Comment: TESTED AT [facility] [address] [facility] 70 - 110 mg/dL [facility] [address] Specimen Performing Laboratory Blood [facility] [address] [address] Blood gas, venous (01/19/2017 7:55 PM) Component [...] C Specimen Performing Laboratory Blood - Arm, [facility] [address] [place] [address] Ketones, blood (01/19/2017 7:55 PM) Component Value Ref Range Ketones, Blood 0.0 <0.4 mmol/L Specimen Performing Laboratory Blood - Arm, [facility] [address] [place] [address] XR chest 1 view portable / bedside (01/19/2017 7:51 PM) Specimen Performing Laboratory [facility] Narrative FINAL REPORT Clinical History: cp Comparison Study: None Findings:The heart and lungs are within normal limits.The pleural spaces are clear.No significant bony or soft tissue abnormalities are seen. Impression: No active cardiopulmonary disease. Signed: Carlos Severino MD Report Verified Date/Time:01/19/2017 19:59:25 Reading Location: [address] Consult Reading Room Procedure Note Interface, External Ris In - 01/19/2017 8:01 PM CDT FINAL REPORT Clinical History: cp Comparison Study: None Findings: The heart and lungs are within normal limits. The pleural spaces are clear. No significant bony or soft tissue abnormalities are seen. Impression: No active cardiopulmonary disease. Signed: Carlos Severino MD Report Verified Date/Time: 01/19/2017 19:59:25 Reading Location: [address] Consult Reading Room Urinalysis w/Microscopic (01/19/2017 7:36 PM)Only the most recent of2 resultswithin the time period is included. Component Value Ref Range Color, UA Light Yellow Clarity, UA Clear Specific [place], UA 1.016 1.001 - 1.035 pH, UA [...] Performing Laboratory Urine - Urine, Clean Catch [facility] [address] [place] [address] Troponin I (01/19/2017 7:33 PM) Component Value Ref Range Troponin I <0.01 0.00 - 0.15 ng/mL Specimen Performing Laboratory Blood - Line, Venous [facility] [address] [place] [address] Narrative Troponin I (TnI) levels must be [...] FEU Specimen Performing Laboratory Blood - Line, [place] [address] Narrative Intended Use: The D-Dimer Assay can [...] pg/mL Specimen Performing Laboratory Blood - Line, Venous [facility] [address] [place] [address] Creatine Kinase (CK), Total and MB (01/19/2017 7:33 PM) Component Value Ref Range Total CK 57 30 - 300 U/L CK-MB 0.6 0.0 - 4.9 ng/mL MB Relative Index 1.1 % Specimen Performing Laboratory Blood - Line, Venous [facility] [address] [place] [address] Narrative CK-MB Reference Range: <5 Normal 5-10 [...] Specimen Performing Laboratory Blood - Line, Venous [facility] [address] [place] [address] ECG 12 lead (01/19/2017 6:40 PM) Specimen Performing Laboratory [facility] Narrative Ventricular Rate 95 BPM Atrial Rate 95 BPM P-R Interval 132 ms QRS Duration 72 ms Q-T Interval 334 ms QTC Calculation(Bazett) 419 ms P Woodbury 69 degrees R [place] 49 degrees T [place] 52 degrees Normal sinus rhythm with sinus arrhythmia Nonspecific ST and T wave abnormality Abnormal ECG No previous ECGs available Procedure Note Interface, External Ris In - 01/20/2017 12:01 PM CDT Ventricular Rate 95 BPM Atrial Rate 95 BPM P-R Interval 132 ms QRS Duration 72 ms Q-T Interval 334 ms QTC Calculation(Bazett) 419 ms P [place] 69 degrees R [place] 49 degrees T [place] 52 degrees Normal sinus rhythm with sinus [...] MD Report Verified Date/Time:01/15/2017 18:25:26 Reading Location: [address] Reading Room Procedure Note Interface, External [...] Report Verified Date/Time: 01/15/2017 18:25:26 Reading Location: [address] Reading Room brain without IV contrast (01/15/2017 5:49 PM) Specimen Performing Laboratory [employer] Narrative FINAL REPORT EXAMINATIONNONCONTRAST HEAD CT SCAN [...] MD Report Verified Date/Time:01/15/2017 18:14:13 Reading Location: [address] Reading Room Procedure Note Interface, External [...] Report Verified Date/Time: 01/15/2017 18:14:13 Reading Location: [address] Reading Room spine lumbar 2 or 3 views (12/12/2016 11:13 PM) Specimen Performing Laboratory RIS Narrative FINAL REPORT RAD, SPINE, LUMBAR, [...] MD Report Verified Date/Time:12/12/2016 23:13:07 Reading Location: [address] Reading Room Procedure Note Interface, External [...] Report Verified Date/Time: 12/12/2016 23:13:07 Reading Location: [address] Reading Room spine thoracic 2 views [...] MD Report Verified Date/Time:12/12/2016 23:13:07 Reading Location: [address] Reading Room Procedure Note Interface, External [...] the thoracic or lumbar spine. Signed: JR Sridhar, Nelly TY Report Verified Date/Time: 12/12/2016 23:13:07 Reading Location: [address] Reading Room after 10/01/2016
--- OUTSIDE RECORDS SUMMARY | 2017-10-02 14:59 | XMS REPORT ---
:1980 Author Organization [facility] Address [address] [place] [address] Dr. Dao [address] [place] [id number] Care Team Providers Name Role Phone DR ROCAEL BETH Unavailable Unavailable HERBER, DR EASTON Unavailable Unavailable USMAN WAYNE Unavailable Unavailable TAHIR, DR BECK Unavailable Unavailable PHOEBE, DR CUADRA Unavailable Unavailable [...] ID 2017-08-19 2017-08-19 Emergency E ROCAEL BETH [facility] [id number] 15:33:00 18:45:00 2017-08-11 2017-08-11 Emergency E JEMMA CRAVEN [facility] [id number] 11:55:00 13:29:00 2017-04-27 2017-04-27 Emergency E ROSANA [facility] [id number] 08:54:00 10:01:00 USMAN 2017-04-20 2017-04-20 Outpatient E TAHIR [facility] [id number] 11:00:00 14:40:00 EBONY 2016-12-12 2016-12-12 Emergency E SHEIKH [facility] [id number] 20:40:00 21:38:00 WASIM Results Test Description Test Time Test Comments Text Results Atomic Results Result Comments RAD, ANKLE, MIN 2017-09-28 Reason for FINAL REPORT PATIENT ID: 3 VIEWS, RIGHT 08:51:00 exam:->FALLReason for [id number] Ankle, right, exam:->ANKLE PAINShould three images this be performed at the INDICATION: Fall, ankle bedside?->No pain COMPARISON: None available IMPRESSION: There is soft tissue swelling. There is no evidence of acute fracture or dislocation. The joint spaces are maintained. A small posterior calcaneal spur is present. Signed: Deisi Watermanort Verified Date/Time: 09/28/2017 08:51:13 Reading Location: [facility] Radiology Reading Room , KNEE, 2017-09-28 Reason for FINAL REPORT PATIENT ID: COMPLETE (4 08:50:00 exam:->FALLReason for [id number] Knee, right, VIEWS), RIGHT exam:->ANKLE PAINShould four images INDICATION: this be performed at the Fall COMPARISON: None bedside?->No available IMPRESSION: There is no evidence of acute fracture or dislocation. There is negligible joint space loss with no significant joint effusion seen. There is mild patellar enthesopathy. The soft tissues are grossly unremarkable. Signed: Deisi Waterman Verified Date/Time: 09/28/2017 08:50:03 Reading Location: [facility] Radiology Reading Room , FOOT, MIN 3 2017-09-28 Reason for FINAL REPORT PATIENT ID: VIEWS, RIGHT 08:45:00 exam:->FALLReason for [id number] TECHNIQUE: exam:->ANKLE PAINShould Frontal, lateral, and this be performed at the oblique radiographs of bedside?->No the right foot dated 09/28/2017 HISTORY: Fall, ankle pain COMPARISON: None. FINDINGS:No fracture or dislocation. Bones are normal in density. No joint space narrowing. Lisfranc joint is well aligned on these nonstress views. No bone erosion or soft tissue nodule seen. No radiodense foreign body or subcutaneous emphysema. IMPRESSION:No fracture or dislocation. Signed: Ariel Hernandez Verified Date/Time: 09/28/2017 08:45:31 Reading Location: [facility] Radiology Reading Room STONE 2017-08-[address] PROTOCOL STUDY 17:07:45 of the abdomen and pelvisClinical indication: Right flank paincomparison: 02/25/2017Location [...] represent phleboliths. There is no ascites or significantadenopathy.Th e bony structures are unremarkable.Impression: 1. 3 subcentimeter left lower lobe pulmonary nodules which may representgranulomas. Follow-up may be appropriate in one year.2. No renal or ureteral calculi or hydronephrosis.3. Benign-appearing hepatic calcification, unchanged. AMYLASE AND LIPASE 2017-08-19 16:53:00 Test Item Value Reference Range Comments AMYLASE (test code=10A) 28 U/L 28-100 LIPASE (test code=60A) 90 IU/L 73-393 COMPREHENSIVE METABOLIC [id number] 16:53:00 Test Item Value Reference Range Comments [...] (test code=31A) 15 IU/L <=78 DRUGS OF [id number] 16:50:00 Test Item Value Reference Range Comments [...] ng/mL Opiates 2000 ng/mL PRO TIME AND [id number] 16:45:00 Test Item Value Reference Range Comments [...] or LMW Heparin. Order Code is ANTI-XA [id number] 16:39:00 Test Item Value Reference Range Comments [...] MORPH (test code=RBCMOR) NORMAL XR SPINE CERVICAL [id number] 13:05:14Cervical spine, 6 viewsLocation code: N8Gytsjmbo history: M54.2: CERVICALGIAComments: AP, oblique, open mouth odontoid and lateral views of the cervicalspine demonstrate no displaced fracture or malalignment. Intervertebral discspaces are maintained. The oblique projections demonstrate no significantforaminal narrowing. The soft tissues are unremarkable. Impression: No acute abnormality.XR FOOT LEFT 1 OR 2 [id number] 09:35:56EXAMINATION: XR ANKLE LEFT 2 VIEW, [...] Articular spaces are wellmaintained.XR ANKLE LEFT 2 [id number] 09:35:56EXAMINATION: XR ANKLE LEFT 2 VIEW, XR [...] spaces are wellmaintained.MRA NECK W & WO [id number] 14:42 :31MRA OF THE CAROTIDS WITHOUT CONTRASTHISTORY: [...] bilateral common or internalcarotid arteries.MRA HEAD W/O [id number] 14: 28:18MRA OF THE [place] WITHOUT CONTRASTHISTORY: Near syncopal episodeTECHNIQUE: [...] No aneurysmal dilatation.MRI BRAIN W/ AND W/O [id number] 13:51:27MRI brain with and without contrastLocation code: Y2Zuhycdth history: Near syncopeTechnique: Multiplanar multisequence MR imaging [...] with and without contrast.GLUCOMETER GLUCOSE- LAB USE [id number] 11:46:00 Test Item Value Reference Range Comments GLUCOMETER (test code=GMG) 161 mg/dL 70-100 CLEANED METERMeter ID: [id number]: [id number] WILFRED RAJU XR ELBOW LEFT COMPLETE 3 [id number] 10:38:15Right Elbow, 3 viewsLocation Code: R5FWOLJRYU HISTORY: Injury, fallCOMMENTS: AP, lateral, and oblique views of the right elbow demonstrate noacute fracture or malalignment. The soft tissues are unremarkable.IMPRESSION: No acute radiographic abnormality.XR CHEST 2 [id number] 10:38:03PA and lateral chest, 2 views.Location code: U5VHFCSXWO HISTORY: Dizziness, fallCOMPARISON: NoneCOMMENTS: The lungs are clear and well inflated. The costophrenic angles aresharp. The cardiomediastinalsilhouette is unremarkable. The bones are intact.IMPRESSION: No acute abnormalityXR SHOULDER LEFT 3 [id number] 10:37:47Left shoulder, 3 viewsLocation Code: Y4BTWYLBOM HISTORY: Fall, injury,COMMENTS: AP views in internaland external rotation along with a transscapularY view of the left shoulder were obtained. There is no acute fracture ormalalignment. The soft tissues are unremarkable.IMPRESSION: No acute abnormality.XR HUMERUS LEFT AP & amp; [id number] 10:37:28Left humerus, 2 viewsLocation Code: A5Ewvndnkh history: Trauma, injury, pain Comment: AP and lateralviews of the left humerus demonstrate no displacedfracture or malalignment. The soft tissues are unremarkable.Impression:No acute radiographic abnormality.[id number] 10: 36:00 Test Item Value Reference Range Comments D-DIMER (test code=DDI) <200 ng/mL D-DU 0-234 D-DIMER COMMENT (test *Level to rule out DVT or PE: code=DDCOM) <235 ng/mL D-DU* COMPREHENSIVE METABOLIC [id number] 10:36:00 Test Item Value Reference Range Comments [...] ALT (test code=31A) 18 IU/L <=78 CARDIAC [id number] 10:19:00 Test Item Value Reference Range Comments TROPONIN I (test code=A84) <0.015 ng/mL 0.000-0.045 CKMB (test code=A49) <1.0 ng/mL <=3.6 CPK (test code=32A) 38 IU/L 39-308 PRO TIME AND [id number] 10:12:00 Test Item Value Reference Range Comments [...] MORPH (test code=RBCMOR) NORMAL CT HEAD W/O [id number] 10:02:40CT brain without contrastLocation code: D4QDHXCUDF HISTORY: Dizziness, headache COMPARISON: None.TECHNIQUE: Routine unenhanced [...] code=60A) 81 IU/L 73-393 CBC (INCLUDES AUTOMATED DIFFERENTIAL)*[id number] 13:47:00 Test Item Value Reference Range Comments [...] NO RBC MORPH (test code=WRBCMOR) NORMAL CT, [id number] 09:15:00Reason for exam:->ABDOMINAL PAINReason for exam :->DIARRHEAReason [...] MDReport Verified Date/Time: 03/08/2017 09:15:05 Reading Location: [facility] B1 C013X Ortho Consult Reading Room BASIC METABOLIC [id number] 08:21:00 Test Item Value Reference Range Comments SODIUM (BEAKER) (test 138 meq/L 135-148 gxda=311) POTASSIUM (BEAKER) (test 3.9 meq/L 3.6-5.5 ufki=954) CHLORIDE (BEAKER) (test 108 meq/L 98-106 nfys=711) CO2 (BEAKER) (test 24 meq/L 24-32 cwni=083) BLOOD UREA NITROGEN 7 mg/dL 10-26 (BEAKER) (test csrp=898) CREATININE (BEAKER) (test 0.56 mg/dL 0.50-1.20 siwj=445) GLUCOSE RANDOM (BEAKER) 138 mg/dL 70-110 (test fkjr=396) CALCIUM (BEAKER) (test 8.9 mg/dL 8.5-10.5 ryyo=899) EGFR (BEAKER) (test 163 mL/min/1.73 sq m ESTIMATED GFR IS NOT pbek=3571) ACCURATE CREATININE CLEARANCE IN PREDICTING GLOMERULAR FILTRATION RATE. ESTIMATED GFR IS NOT APPLICABLE FOR DIALYSIS PATIENTS. AST (SGOT)2017-03-08 08:18:00 Test Item Value Reference Range Comments AST (SGOT) (BEAKER) (test qycw=041) 11 U/L 5-40 ALT (SGPT)2017-03-08 08:18:00 Test Item Value Reference Range Comments ALT (SGPT) (BEAKER) (test fvwu=190) 21 U/L 5-50 [id number] 08:18:00 Test Item Value Reference Range Comments LIPASE (BEAKER) (test shnf=707) 37 U/L 40-240 BILIRUBIN, ADULT [id number] 08:16:00 Test Item Value Reference Range Comments BILIRUBIN TOTAL (BEAKER) (test iroj=174) 0.3 mg/dL 0.1-1.2 CBC W/PLT COUNT & AUTO [id number] 08:13:00 Test Item Value Reference Range Comments WHITE BLOOD CELL COUNT (BEAKER) (test 13.1 10e3/ L 4.0-10.0 opgp=102) RED BLOOD CELL COUNT (BEAKER) (test ucqm=529) 4.85 10e6/ L 4.20-5.80 HEMOGLOBIN (BEAKER) (test fzmu=200) 13.9 g/dL 13.0-16.8 HEMATOCRIT (BEAKER) (test mphy=636) 42.8 % 40.0-50.0 MEAN CORPUSCULAR VOLUME (BEAKER) (test 88.3 fL 82.0-98.0 jpsp=014) MEAN CORPUSCULAR HEMOGLOBIN (BEAKER) (test 28.6 pg 27.0-33.0 rrtk=102) MEAN CORPUSCULAR HEMOGLOBIN CONC (BEAKER) 32.4 g/dL 32.0-36.0 (test sepg=684) RED CELL DISTRIBUTION WIDTH (BEAKER) (test 13.2 % 10.3-14.2 vfov=868) PLATELET COUNT (BEAKER) (test nzuq=314) 366 10e3/ L 150-430 MEAN PLATELET VOLUME (BEAKER) (test atqz=767) 6.9 fL 6.5-10.5 NEUTROPHILS RELATIVE PERCENT (BEAKER) (test 77 % wdxn=970) LYMPHOCYTES RELATIVE PERCENT (BEAKER) (test 12 % deeb=973) MONOCYTES RELATIVE PERCENT (BEAKER) (test 6 % pstv=418) EOSINOPHILS RELATIVE PERCENT (BEAKER) (test 4 % yglk=222) BASOPHILS RELATIVE PERCENT (BEAKER) (test 1 % fzeq=357) NEUTROPHILS ABSOLUTE COUNT (BEAKER) (test 10.10 10e3/ L 1.80-8.00 ttxa=796) LYMPHOCYTES ABSOLUTE COUNT (BEAKER) (test 1.61 10e3/ L 1.48-4.50 syrd=170) MONOCYTES ABSOLUTE COUNT (BEAKER) (test 0.83 10e3/ L 0.00-1.30 ymbo=875) EOSINOPHILS ABSOLUTE COUNT (BEAKER) (test 0.46 10e3/ L 0.00-0.50 njhf=333) BASOPHILS ABSOLUTE COUNT (BEAKER) (test 0.10 10e3/ L 0.00-0.20 vlxg=050) RAD, FOOT, MIN 3 VIEWS, [id number] 08:37:00Reason for exam:->FOOT INJURYleft foot injury , [...] MDReport Verified Date/Time: 02/25/2017 08:37:49 Reading Location: [facility] C013Y CT Body Reading Room CT ABDOMEN AND PELVIS WITH CONTRAST*WW*2017-02-25 03:54:12CT ABDOMEN AND PELVIS WITH CONTRAST*WW* Location:[address] hours services are provided 02/25/2017 2:48 AMIndication:RLQ pain.Comparison: Not availableTechnique: Axial CT of the abdomen and pelvis followingthe bolusadministration of nonionic intravenous contrast. Sagittal and coronalreformatted images areprovided for interpretation. All CT scans at [facility] use dose modulation, iterative reconstruction, and [...] 13 IU/L <=78 PRO TIME AND PTT *WW*2017-02-25 02:32:00 Test Item Value Reference Range Comments [...] (test code=WAUAM) NO NO CBC (INCLUDES AUTOMATED DIFFERENTIAL)*[id number] 02:15:00 Test Item Value Reference Range Comments [...] MORPH (test code=WRBCMOR) NORMAL RAPID DRUG SCREEN, [id number] 20:58:00 Test Item Value Reference Range Comments BARBITURATE URINE (BEAKER) (test nrnr=018) Negative Negative BENZODIAZEPINE SCREEN URINE (BEAKER) (test Negative Negative bjxf=065) COCAINE (METAB.) SCREEN (BEAKER) (test gooo=7718) Negative Negative METHADONE SCREEN (BEAKER) (test pslk=6043) Negative Negative OPIATE SCREEN URINE (BEAKER) (test xlau=670) Positive Negative CANNABINOID SCREEN URINE (BEAKER) (test qjcg=637) Positive Negative AMPH/METHAMPH SCREEN (BEAKER) (test kqjs=7612) Negative Negative PHENCYCLIDINE SCREEN URINE (BEAKER) (test osis=511) Negative Negative DRUG CUTOFF CONC.Cocaine 300 ng/mL Cannabinoid 50 ng/mLBenzodiazepine 200 ng/mLBarbiturate 200 ng/ mLPhencyclidine 25 ng/mLOpiate 300 ng/mLMethadone 300 ng/mLAmphetamine/ 1000 ng/mL MethamphetamineThis assay provides an unconfirmed qualitative test result for the clinical management of patients in emergency situations. Chain of custody not maintained. Some fdye-zqr-jqmelom medications, as well as adulterants, may cause inaccurate results. Clinical correlation should be applied. A more comprehensivedrug screen or confirmation of a detected drug may be performed upon request.URINALYSIS W/ [id number] 20:27:00 Test Item Value Reference Range Comments COLOR (BEAKER) (test elkj=047) Light Yellow CLARITY (BEAKER) (test hjfw=388) Clear SPECIFIC GRAVITY UA (BEAKER) (test iywh=649) 1.016 1.001-1.035 PH UA (BEAKER) (test cbbs=744) 6.0 5.0-8.0 PROTEIN UA (BEAKER) (test hwhs=461) Negative Negative GLUCOSE UA (BEAKER) (test cuin=131) >500 mg/dL Negative KETONES UA (BEAKER) (test plzw=931) Negative Negative BILIRUBIN UA (BEAKER) (test ilpg=050) Negative Negative BLOOD UA (BEAKER) (test ssgf=719) Negative Negative NITRITE UA (BEAKER) (test ninb=706) Negative Negative LEUKOCYTE ESTERASE UA (BEAKER) (test zraz=577) Negative Negative UROBILINOGEN UA (BEAKER) (test tkis=953) < mg/dL 0.2-1.0 RBC UA (BEAKER) (test hiny=558) < /HPF WBC UA (BEAKER) (test godu=393) 0 /HPF BACTERIA (BEAKER) (test evjm=586) Rare MUCUS (BEAKER) (test kfgm=7316) Rare SOURCE(BEAKER) (test ybpm=4558) KETONE, [id number] 20:12:00 Test Item Value Reference Range Comments KETONES, BLOOD (BEAKER) (test jrje=4421) 0.0 mmol/L <0.4 POCT-GLUCOSE [id number] 20:08:00 Test Item Value Reference Range Comments POC-GLUCOSE METER (BEAKER) 241 mg/dL 70-110 TESTED AT [facility] [address] [facility] (test gifu=2222) [facility] [address] BLOOD GAS, [id number] 20:05:00 Test Item Value Reference Range Comments PH VENOUS (BEAKER) (test yuac=169) 7.42 7.32-7.42 PCO2 VENOUS (BEAKER) (test qtbz=479) 36 mmHg 41-51 PO2 VENOUS (BEAKER) (test veke=474) 43 mmHg 25-40 O2 SATURATION VENOUS (BEAKER) (test gceb=285) 80.3 % 40.0-70.0 HCO3 VENOUS (BEAKER) (test mmtk=266) 23 mmol/L 21-29 BASE EXCESS VENOUS (BEAKER) (test dbgz=806) -1.4 mmol/L -2.0-3.0 PATIENT TEMPERATURE (BEAKER) (test idtz=1610) 36.7 C CREATINE KINASE (CK), TOTAL AND [id number] 20:05:00 Test Item Value Reference Range Comments CREATINE KINASE TOTAL (BEAKER) (test wxtd=496) 57 U/L 30-300 CREATINE KINASE-MB (BEAKER) (test jbdd=532) 0.6 ng/mL 0.0-4.9 CREATINE KINASE-MB INDEX (BEAKER) (test jhen=432) 1.1 % CK-MB Reference Range:<5 Normal5-10 Borderline>10 AbnormalTROPONIN [id number] 20:05:00 Test Item Value Reference Range Comments TROPONIN I (BEAKER) (test jope=704) < ng/mL 0.00-0.15 Troponin I (TnI) levels [...] Range Comments B-TYPE NATRIURETIC PEPTIDE (BEAKER) (test nxpx=955) < pg/mL 0-100 [id number] 19:59:00 Test Item Value Reference Range Comments D-DIMER QUANTITATIVE (BEAKER) (test rcbt=865) < MG/L FEU <0.50 Intended Use: The [...] within 95-100% range.RAD, CHEST, 1 VIEW, NON [id number] 19:59:00Reason for exam:->cpShould this be performed at the bedside?->YesFINAL REPORT Clinical History: cp Comparison Study: None Findings: The heartand lungs are within normal limits. The pleural spaces are clear. No significant bony or soft tissue abnormalities are seen. Impression: No active cardiopulmonary disease. Signed: Carlos Severino [facility] Verified Date/Time: 01/19/2017 19:59:25 Reading Location: [facility] C0W Consult Reading Room COMPREHENSIVE METABOLIC [id number] 19:58:00 Test Item Value Reference Range Comments TOTAL PROTEIN (BEAKER) 6.7 gm/dL 6.0-8.5 Specimen moderately (test fcou=962) hemolyzed ALBUMIN (BEAKER) (test 3.5 g/dL 3.5-5.0 Specimen moderately unzl=3283) hemolyzed ALKALINE PHOSPHATASE 84 U/L 30-115 (BEAKER) (test tkhr=921) BILIRUBIN TOTAL (BEAKER) 0.2 mg/dL 0.1-1.3 Specimen moderately (test ucsd=771) hemolyzed SODIUM (BEAKER) (test 138 meq/L 135-148 ptfh=033) POTASSIUM (BEAKER) (test 3.8 meq/L 3.5-5.5 Specimen moderately afji=636) hemolyzed CHLORIDE (BEAKER) (test 106 meq/L 98-106 tmvk=381) CO2 (BEAKER) (test 21 meq/L 20-31 vzax=088) BLOOD UREA NITROGEN 6 mg/dL 10-26 (BEAKER) (test eets=651) CREATININE (BEAKER) (test 0.84 mg/dL 0.50-1.20 Specimen moderately pbyl=252) hemolyzed GLUCOSE RANDOM (BEAKER) 289 mg/dL 70-110 (test lisa=085) CALCIUM (BEAKER) (test 8.8 mg/dL 8.5-10.5 smxf=718) AST (SGOT) (BEAKER) (test 20 U/L 5-40 Specimen moderately csrk=660) hemolyzed ALT (SGPT) (BEAKER) (test 13 U/L 6-50 Specimen moderately fnej=964) hemolyzed EGFR (BEAKER) (test 103 mL/min/1.73 sq ESTIMATED GFR IS NOT ypvn=1238) m ACCURATE CREATININE CLEARANCE IN PREDICTING GLOMERULAR FILTRATION RATE. ESTIMATED GFR IS NOT APPLICABLE FOR DIALYSIS PATIENTS. CBC W/PLT COUNT & AUTO [id number] 19:42:00 Test Item Value Reference Range Comments WHITE BLOOD CELL COUNT (BEAKER) (test eeic=884) 12.4 K/ L 4.0-10.0 RED BLOOD CELL COUNT (BEAKER) (test iqay=477) 4.98 M/ L 4.20-5.80 HEMOGLOBIN (BEAKER) (test houp=133) 14.4 GM/DL 13.0-16.8 HEMATOCRIT (BEAKER) (test eukw=029) 43.5 % 40.0-50.0 MEAN CORPUSCULAR VOLUME (BEAKER) (test tzcz=443) 87.4 fL 82.0-98.0 MEAN CORPUSCULAR HEMOGLOBIN (BEAKER) (test 28.8 pg 27.0-33.0 tmsm=432) MEAN CORPUSCULAR HEMOGLOBIN CONC (BEAKER) (test 33.0 GM/DL 32.0-36.0 puwl=738) RED CELL DISTRIBUTION WIDTH (BEAKER) (test 13.9 % 12.0-15.0 iauj=440) PLATELET COUNT (BEAKER) (test vcnx=014) 313 K/CU MM 150-430 MEAN PLATELET VOLUME (BEAKER) (test bytb=948) 8.6 fL 6.5-10.5 NUCLEATED RED BLOOD CELLS (BEAKER) (test 0 /100 WBC 0-0 fnzk=295) NEUTROPHILS RELATIVE PERCENT (BEAKER) (test 60 % qobr=451) LYMPHOCYTES RELATIVE PERCENT (BEAKER) (test 29 % xptd=415) MONOCYTES RELATIVE PERCENT (BEAKER) (test 7 % wsif=429) EOSINOPHILS RELATIVE PERCENT (BEAKER) (test 3 % xtzz=268) BASOPHILS RELATIVE PERCENT (BEAKER) (test 1 % jybw=167) NEUTROPHILS ABSOLUTE COUNT (BEAKER) (test 7.40 K/ L 1.80-8.00 fdsc=130) LYMPHOCYTES ABSOLUTE COUNT (BEAKER) (test 3.60 K/ L 1.48-4.50 pfgq=425) MONOCYTES ABSOLUTE COUNT (BEAKER) (test 0.80 K/ L 0.00-1.30 mtpj=570) EOSINOPHILS ABSOLUTE COUNT (BEAKER) (test 0.40 K/ L 0.00-0.50 xptu=238) BASOPHILS ABSOLUTE COUNT (BEAKER) (test 0.20 K/ L 0.00-0.20 okhy=601) POCT-GLUCOSE [id number] 19:02:00 Test Item Value Reference Range Comments POC-GLUCOSE METER (BEAKER) 367 mg/dL 70-110 TESTED AT [address] (test belt=4864) [facility] [address] CT, SPINE, CERVICAL, WO [id number] 18:25:00Reason for exam:->NECK PAINWhat is the patient's [...] Mittal Verified Date/Time: 01/15/2017 18:25:26 Reading Location: [address] Reading Room Electronically signed by: NBA MITTAL M.D.on 01/15/2017 06:25 PMCT, BRAIN, WITHOUT [id number] 18:14:00Reason for exam:->NECK PAINWhat is the patient's [...] Nba Mittal Verified Date/Time: 18:14:13 Reading Location: [address] Reading Room XR KNEE RIGHT 3 [id number] 22:22:15EXAM: Portable right knee series, 3 viewsLocation: [id number]: Fell on right knee and twisted right kneeCOMPARISON: None.DISCUSSION: Frontal, oblique, and crosstable lateral views of the right kneeare submitted. No fracture, dislocation, lytic or blastic lesions areidentified. Joint spaces appear well preserved. No joint effusion is seen.IMPRESSION:No acute bony abnormalities.XR ANKLE RIGHT COMPLETE 3 [id number] 22:21:22EXAM: Right ankle series, 3 viewsLocation: [id number]: Fell, twisted right ankleCOMPARISON: None.DISCUSSION: Frontal, oblique, and lateral views of the right ankle aresubmitted. There is a questionable hairline fracture of the distal fibula, onlyseen on the oblique view near the ankle mortise. No other evidence of fractureis seen.IMPRESSION: Questionable hairline fracture of the distal fibula.RAPID DRUG SCREEN, [id number] 23:10:00 Test Item Value Reference Range Comments BARBITURATE URINE (BEAKER) (test lyhm=794) Negative Negative BENZODIAZEPINE SCREEN URINE (BEAKER) (test Negative Negative putf=625) COCAINE (METAB.) SCREEN (BEAKER) (test rbbf=5115) Negative Negative METHADONE SCREEN (BEAKER) (test vnro=4300) Negative Negative OPIATE SCREEN URINE (BEAKER) (test pjas=514) Positive Negative CANNABINOID SCREEN URINE (BEAKER) (test qoxz=202) Negative Negative AMPH/METHAMPH SCREEN (BEAKER) (test dudj=1093) Negative Negative PHENCYCLIDINE SCREEN URINE (BEAKER) (test vqjs=800) Negative Negative DRUG CUTOFF CONC.Cocaine 300 ng/mL Cannabinoid 50 ng/mLBenzodiazepine 200 ng/mLBarbiturate 200 ng/ mLPhencyclidine 25 ng/mLOpiate 300 ng/mLMethadone 300 ng/mLAmphetamine/ 1000 ng/mL MethamphetamineThis assay provides an unconfirmed qualitative test result for the clinical management of patients in emergency situations. Chain of custody not maintained. Some vdze-nrn-hcytugi medications, as well as adulterants, may cause inaccurate results. Clinical correlation should be applied. A more comprehensivedrug screen or confirmation of a detected drug may be performed upon request.URINALYSIS W/ [id number] 22:55:00 Test Item Value Reference Range Comments COLOR (BEAKER) (test jodx=261) Yellow CLARITY (BEAKER) (test kxnp=986) Clear SPECIFIC GRAVITY UA (BEAKER) (test daeq=303) 1.025 1.001-1.035 PH UA (BEAKER) (test ccas=210) 6.0 5.0-8.0 PROTEIN UA (BEAKER) (test szye=300) Negative Negative GLUCOSE UA (BEAKER) (test gfjl=990) Negative Negative KETONES UA (BEAKER) (test uzks=259) Negative Negative BILIRUBIN UA (BEAKER) (test ztiu=346) Negative Negative BLOOD UA (BEAKER) (test pujm=879) Negative Negative NITRITE UA (BEAKER) (test vkae=576) Negative Negative LEUKOCYTE ESTERASE UA (BEAKER) (test zdbc=917) Negative Negative UROBILINOGEN UA (BEAKER) (test ejpa=000) 0.2 mg/dL 0.2-1.0 BACTERIA (BEAKER) (test srrt=741) Occasional MUCUS (BEAKER) (test caqa=4289) Many RBC UA-MANUAL (BEAKER) (test qqhc=1072) <5 /HPF WBC UA-MANUAL (BEAKER) (test dyci=7037) <5 /HPF SQUAMOUS EPITHELIAL MANUAL (BEAKER) (test <5 /HPF bcwu=4145) SOURCE(BEAKER) (test uryg=9968) XR SHOULDER LEFT 3 [id number] 09:00:14EXAMINATION: XR SHOULDER LEFT 3 VIEWS.LOCATION: D4.HISTORY: shoulder pain while carrying heavy load.COMPARISON: Left shoulder x-ray 04/16/2015.FINDINGS/IMPRESSION:Three views of left shoulder demonstrates acute osseous abnormality. Nodislocation. Left clavicle appears intact. Visualized left lung parenchymaappears unremarkable.
[2017-10-02] MEDS ORDERED: NA CHLORIDE 0.9% 1,000 ML ONE (15:36)
[2017-10-02 15:42] LABS: Absolute Lymphocytes (CBC) 2.5 K/uL (0.7-4.9); Absolute Monocytes 0.8 K/uL (0.1-1.3); Absolute Neutrophil 8.4 K/uL (1.8-8.0); Basophils % 1.1 % (0-1.3); Eosinophils % 2.5 % (0-4.4); Hematocrit 41.8 % (39.6-49.0); Lymphocytes % 20.3 % (15.3-44.8); MCH 27.5 pg (27.0-35.0); MCV 84.6 fL (80-100); MPV 7.6 fL (7.6-11.3); Monocytes % 6.9 % (3.3-12.3); RBC Red Blood Cell Count 4.94 M/uL (4.33-5.43)
--- NOTE | 2017-10-02 15:55 | RAD REPORT ---
EXAM DESCRIPTION: CT - Head C Spine Cap Wo Con - 10/02/2017 3:27 pm CLINICAL HISTORY: Fall from ladder, head, neck, chest and abdomen pain, positive loss of consciousne ss COMPARISON: CT chest abdomen and pelvis September 03, lumbar spine September 18, cervical spine September 18, chest ex am September 18, CT chest March 2017 TECHNIQUE: Axial [address] head images were obtained. Axial [address] cervical spine images were obtain ed with sagittal and coronal reconstruction images reviewed. Axial 5 mm images of the chest, abdomen and pelvis were obtained. All CT scans are performed using dose optimization technique as appropriate and may include automated exposure control or mA/KV adjustment according to patient size. FINDINGS: No intracranial hemorrhage, mass or edema. No midline shift or abnormal fluid collection. Mastoid air cells and paranasal sinuses are clear. No skull fracture. Ventricles are normal. Cervical bodies are normal in height and alignment. No fracture or acute bone finding.No disk space n arrowing.No prevertebral soft tissue thickening or paraspinal mass.Central canal detail is inherently limited on CT imaging. CT chest shows no pneumothorax, pulmonary contusion or pleural fluid collection. Small 6 mm or less p ulmonary nodules are seen scattered in the lung cadet not clearly different back to March 2017 No mediastinal hematoma and the aorta and pulmonary arteries are unremarkable. No chest will mass or ab normal axillary finding. No displaced rib fracture or other significant bony finding. CT abdomen and pelvis show no injury to solid abdominal viscera. Gallbladder and biliary tree are unr emarkable. No bowel injury or significant finding. No free air, free fluid or abnormal stranding. No hernia, mass or bulky lymphadenopathy. No urinary bladder abnormality. No significant bony finding. IMPRESSION: No significant CT Head finding. No significant CT cervical spine finding. No significant CT Chest finding. Patient has multiple 6 mm or less pulmonary nodules scattered in the lung parenchyma not substantially different from March 2017. Malignancy is very unlikely in a pat ient this age. A 6-[address] follow-up chest exam showed be considered to monitor for stability. No significant CT Abdomen and Pelvis finding.
[2017-10-02 15:56] LABS: Bicarbonate 24 mEq/L (21-31); Glucose Level 242 mg/dL (65-120); Potassium 3.3 mEq/L (3.6-5.0); Sodium Level 137 mEq/L (135-145)
[2017-10-02 15:57] LABS: BUN Blood Urea Nitrogen 5 mg/dL (6-20)
[2017-10-02 16:01] LABS: Urine Blood NEGATIVE (NEG); Urine Glucose 1+ (NEG); Urine Protein NEGATIVE (NEG); Urine Specific Gravity <1.005 (1.005-1.030)
--- NOTE | 2017-10-02 16:23 | ER ---
Nurse's Notes [facility] Name: Adria Guallpa Jr Age: 37 yrs Sex: Male : 1980 Arrival Date: 10/02/2017 Time: 14:57 Bed 4 Private MD: Diagnosis: Fall (on) (from) other stairs and steps-eight;Contusion of other part of head;Type 2 diabetes mellitus Presentation: 10/02 14:58 Transition of care: patient was not received from another setting of care. Onset of sv symptoms was October 02, 2017. Risk Assessment: Do you want to hurt yourself or someone else? Patient reports no desire to harm self or others. Initial Sepsis Screen: Does the patient meet any 2 criteria? Yes Does the patient have a suspected source of infection? No. Patient's initial sepsis screen is negative. 15:04 Presenting complaint: Patient states: witnessed fall from 8 foot ladder, missed step. sv Positive LOC for about 5 minutes per witess. Care prior to arrival: None. Mechanism of Injury: Fall from ladder approximately 8 feet. Trauma event details: Injury occurred in the [facility], Injury occurred: October 02, 2017. 15:04 Acuity: DAVE 2 sv 15:04 Method Of Arrival: Wheelchair sv Triage Assessment: 15:00 General: Appears in no apparent distress. Behavior is calm, cooperative, appropriate tw2 for age. Pain: Complains of pain in head. Trauma Activation: Alert Physician: ED Physician; Name: Dr Mace; Notified At: 14:59; Arrived At: 14:59 Physician: General Surgeon; Name: ; Notified At: 14:59; Arrived At: Physician: Radiology; Name: Lexy; Notified At: 14:59; Arrived At: 15:06 Physician: Respiratory; Name: ; Notified At: 14:59; Arrived At: Physician: Lab; Name: ; Notified At: 14:59; Arrived At: 14:59 Primary RN-Georgina, Secondary RN-Liyah CHIU sv Historical: - Allergies: 15:09 Flexeril; sv 15:09 Ibuprofen; sv 15:09 Toradol; sv 15:09 Demerol; sv - Home Meds: 15:09 aspirin 81 mg Oral chew [Active]; gabapentin 300 mg Oral cap 1 cap twice a day sv [Active]; metformin 500 mg Oral tab 1 tab 2 times per day [Active]; - PMHx: 15:09 Chronic pain; Diabetes - NIDDM; Myocardial infarction; gallstones; sv - Immunization history:: Adult Immunizations up to date. - Social history:: Smoking status: Patient uses tobacco products, smokes one-half pack cigarettes per day. - Immunization history: Last tetanus immunization: - up to date. - Family history:: not pertinent. - Ebola Screening: : No symptoms or risks identified at this time. Screenin:07 Abuse screen: Denies threats or abuse. Nutritional screening: No deficits noted. sv Tuberculosis screening: No symptoms or risk factors identified. Fall Risk No fall in past 12 months (0 pts). No secondary diagnosis (0 pts). IV access (20 points). Ambulatory Aid- None/Bed Rest/Nurse Assist (0 pts). Gait- Weak (10 pts.). Mental Status- Oriented to own ability (0 pts). Total Watkins Fall Scale indicates No Risk (0-24 pts). Primary Survey: 14:58 A: Airway: patent, No supplemental oxygen in use on arrival. Oral cavity: clear, tw2 Trachea midline. Breathing/Chest: Respiratory pattern: regular, Respiratory effort: spontaneous, unlabored, Breath sounds: clear, bilaterally. Chest inspection: symmetrical rise and fall of the chest. Circulation: Heart tones present. Pulses: palpable right radial artery and left radial artery. Skin color: pink, Skin temperature: warm, dry. Disability Alert. 15:45 Reassessment Airway Airway Patent Oxygen No O2 Oral cavity Clear Trachea Midline sv Breathing/Chest Respiratory pattern Regular Respiratory effort Spontaneous Unlabored Breath sounds Clear Chest inspection Symmetrical Circulation Heart tones Present Pulses Palpable Color Graf Temperature Warm Disability Alert. Secondary Survey: 14:58 HEENT: No deficits noted. Gastrointestinal: No deficits noted. : No deficits noted. tw2 Musculoskeletal: No deficits noted. No signs and/or symptoms reported regarding the musculoskeletal system. Injury Description: Head injury sustained to "back of the head" is closed, had loss of consciousness. Assessment: 16:40 Reassessment: Patient appears in no apparent distress at this time. No changes from previously documented assessment. Patient and/or family updated on plan of care and expected duration. Pain level reassessed. Patient is alert, oriented x 3, equal unlabored respirations, skin warm/dry/pink. Vital Signs: 14:58 BP 143 / 86; Pulse 102; Resp 20; Temp 98.2(TE); Pulse Ox 99% on R/A; Weight 88.9 kg; sv Height 5 ft. 10 in. (177.80 cm); Pain 10/10; 15:45 BP 129 / 77; Pulse 84; Resp 18; Temp 98; Pulse Ox 98% on R/A; sv 16:24 BP 118 / 70; Pulse 83; Resp 18; Pulse Ox 99% ; sv 14:58 Body Mass Index 28.12 (88.90 kg, 177.80 cm) sv Ksenia Coma Score: 14:58 Eye Response: spontaneous(4). Verbal Response: oriented(5). Motor Response: obeys sv commands(6). Total: 15. 15:45 Eye Response: spontaneous(4). Verbal Response: oriented(5). Motor Response: obeys sv commands(6). Total: 15. Trauma Score (Adult): 14:58 Eye Response: spontaneous(1); Verbal Response: oriented(1); Motor Response: obeys sv commands(2); Systolic BP: > 89 mm Hg(4); Respiratory Rate: 10 to 29 per min(4); Ksenia Score: 15; Trauma Score: 12 15:45 Eye Response: spontaneous(1); Verbal Response: oriented(1); Motor Response: obeys sv commands(2); Systolic BP: > 89 mm Hg(4); Respiratory Rate: 10 to 29 per min(4); Samoa Score: 15; Trauma Score: 12 ED Course: 14:57 Patient arrived in ED. as 14:58 Rigid cervical collar applied and checked by physician. sv 14:58 Patient maintains SpO2 saturation greater than 95% on room air. sv 14:58 Arm band placed on right wrist. sv 14:58 Patient has correct armband on for positive identification. Bed in low position. Call sv light in reach. Side rails up X2. Pulse ox on. NIBP on. Door closed. Head of bed elevated. 14:59 Jin Mace MD is Attending Physician. sabina 15:00 Thermoregulation: warm blanket given to patient. sv 15:06 Triage completed. sv 15:06 Initial lab(s) drawn, by ED staff, sent to lab. Inserted saline lock: 18 gauge in right sv antecubital area, using aseptic technique. Blood collected. 15:13 Georgina Mcclendon, RN is Primary Nurse. tw2 15:[address] via stretcher. sv 15:27 CT Traumagram (Head C Spine CAP wo con) In Process Unspecified. EDMS 16:41 No provider procedures requiring assistance completed. IV discontinued, intact, sv bleeding controlled, No redness/swelling at site. Pressure dressing applied. Administered Medications: 15:36 Drug: NS 0.9% 1000 ml Route: IV; Rate: 1 bolus; Site: right antecubital; tw2 16:40 Follow up: Response: No adverse reaction; IV Status: Completed infusion; IV Intake: sv 1000ml 16:24 Drug: Potassium Chloride 20 mEq Route: PO; tw2 16:39 Follow up: Response: No adverse reaction sv 16:40 Drug: Tylenol #3 (300 mg-30 mg) 2 tabs Route: PO; sv 16:40 Follow up: Response: Medication administered at discharge. sv Intake: 14:58 PO: 0ml; Total: 0ml. sv 15:45 PO: 0ml; Total: 0ml. sv 16:40 IV: 1000ml; Total: 1000ml. sv Output: 14:58 Urine: 0ml; Total: 0ml. sv 15:45 Urine: 0ml; Total: 0ml. sv Outcome: 16:22 Discharge ordered by . sabina 16:41 Discharged to home ambulatory, Discharge paperwork given to Taniya in ER registration, sv informed he can have his paperwork and prescription once his transportation is here. Pt understands he cannot get his paperwork and prescriptions until then. 16:41 Condition: stable 16:41 Discharge instructions given to patient, Instructed on discharge instructions, follow up and referral plans. no drinking with medication, no driving heavy equipment, medication usage, Demonstrated understanding of instructions, follow-up care, medications, Prescriptions given X 1. 16:42 Patient's length of stay was not longer than 2 hours. sv 16:42 Patient left the ED. sv Signatures: Dispatcher [employer] EDMS Liyah Muñoz RN RN sv Anderson, Corey, MD MD cha Martinez, Amelia as Georgina Mcclendon RN RN tw2 Corrections: (The following items were deleted from the chart) 15:13 14:58 Rigid cervical collar applied sv sv
--- NOTE | 2017-10-02 16:23 | EDPHYS ---
Physician Documentation [facility] Name: Adria Guallpa Jr Age: 37 yrs Sex: Male : 1980 Arrival Date: 10/02/2017 Time: 14:57 Bed 4 Private MD: ED Physician Jin Mace HPI: 10/02 15:02 This 37 yrs old Male presents to ER via Unassigned with complaints of Fall sabina Injury. 15:02 Details of fall: The patient fell from a height, from a ladder, approximately 8 feet. sabina Onset: The symptoms/episode began/occurred just prior to arrival. Associated injuries: The patient sustained injury to the head, neck injury, upper back injury. Severity of symptoms: At their worst the symptoms were mild, moderate, in the emergency department the symptoms are unchanged. The patient has not experienced similar symptoms in the past. Historical: - Allergies: 15:09 Flexeril; sv 15:09 Ibuprofen; sv 15:09 Toradol; sv 15:09 Demerol; sv - Home Meds: 15:09 aspirin 81 mg Oral chew [Active]; gabapentin 300 mg Oral cap 1 cap twice a day sv [Active]; metformin 500 mg Oral tab 1 tab 2 times per day [Active]; - PMHx: 15:09 Chronic pain; Diabetes - NIDDM; Myocardial infarction; gallstones; sv - Immunization history:: Adult Immunizations up to date. - Social history:: Smoking status: Patient uses tobacco products, smokes one-half pack cigarettes per day. - Immunization history: Last tetanus immunization: - up to date. - Family history:: not pertinent. - Ebola Screening: : No symptoms or risks identified at this time. ROS: 15:03 Constitutional: Negative for fever, chills, and weight loss, Eyes: Negative for injury, sabina pain, redness, and discharge, ENT: Negative for injury, pain, and discharge, Cardiovascular: Negative for chest pain, palpitations, and edema, Respiratory: Negative for shortness of breath, cough, wheezing, and pleuritic chest pain, Abdomen/GI: Negative for abdominal pain, nausea, vomiting, diarrhea, and constipation, Back: Negative for injury and pain, : Negative for injury, bleeding, discharge, and swelling, MS/Extremity: Negative for injury and deformity, Skin: Negative for injury, rash, and discoloration, Psych: Negative for depression, anxiety, suicide ideation, homicidal ideation, and hallucinations, Allergy/Immunology: Negative for hives, rash, and allergies, Endocrine: Negative for neck swelling, polydipsia, polyuria, polyphagia, and marked weight changes, Hematologic/Lymphatic: Negative for swollen nodes, abnormal bleeding, and unusual bruising. 15:03 Neck: Positive for pain with movement, pain at rest. Exam: 15:03 Constitutional: This is a well developed, well nourished patient who is awake, alert, sabina and in no acute distress. Head/Face: Normocephalic, atraumatic. Eyes: Pupils equal round and reactive to light, extra-ocular motions intact. Lids and lashes normal. Conjunctiva and sclera are non-icteric and not injected. Cornea within normal limits. Periorbital areas with no swelling, redness, or edema. ENT: Nares patent. No nasal discharge, no septal abnormalities noted. Tympanic membranes are normal and external auditory canals are clear. Oropharynx with no redness, swelling, or masses, exudates, or evidence of obstruction, uvula midline. Mucous membranes moist. Chest/axilla: Normal chest wall appearance and motion. Nontender with no deformity. No lesions are appreciated. Cardiovascular: Regular rate and rhythm with a normal S1 and S2. No gallops, murmurs, or rubs. Normal PMI, no JVD. No pulse deficits. Respiratory: Lungs have equal breath sounds bilaterally, clear to auscultation and percussion. No rales, rhonchi or wheezes noted. No increased work of breathing, no retractions or nasal flaring. Abdomen/GI: Soft, non-tender, with normal bowel sounds. No distension or tympany. No guarding or rebound. No evidence of tenderness throughout. Back: No spinal tenderness. No costovertebral tenderness. Full range of motion. Male : Normal genitalia with no discharge or lesions. Skin: Warm, dry with normal turgor. Normal color with no rashes, no lesions, and no evidence of cellulitis. 15:03 Neck: External neck: is normal, C-spine: C-collar placed in ED, Thyroid: Trachea: no acute changes. Vital Signs: 14:58 BP 143 / 86; Pulse 102; Resp 20; Temp 98.2(TE); Pulse Ox 99% on R/A; Weight 88.9 kg; sv Height 5 ft. 10 in. (177.80 cm); Pain 10/10; 15:45 BP 129 / 77; Pulse 84; Resp 18; Temp 98; Pulse Ox 98% on R/A; sv 16:24 BP 118 / 70; Pulse 83; Resp 18; Pulse Ox 99% ; sv 14:58 Body Mass Index 28.12 (88.90 kg, 177.80 cm) sv Ksenia Coma Score: 14:58 Eye Response: spontaneous(4). Verbal Response: oriented(5). Motor Response: obeys sv commands(6). Total: 15. 15:45 Eye Response: spontaneous(4). Verbal Response: oriented(5). Motor Response: obeys sv commands(6). Total: 15. Trauma Score (Adult): 14:58 Eye Response: spontaneous(1); Verbal Response: oriented(1); Motor Response: obeys sv commands(2); Systolic BP: > 89 mm Hg(4); Respiratory Rate: 10 to 29 per min(4); Higbee Score: 15; Trauma Score: 12 15:45 Eye Response: spontaneous(1); Verbal Response: oriented(1); Motor Response: obeys sv commands(2); Systolic BP: > 89 mm Hg(4); Respiratory Rate: 10 to 29 per min(4); Higbee Score: 15; Trauma Score: 12 MDM: 14:59 Patient medically screened. [facility] 15:05 Data reviewed: vital signs, nurses notes, EMS record, lab test result(s), EKG, [facility] radiologic studies, CT scan, plain films. 10/02 15:06 Order name: Basic Metabolic Panel; Complete Time: 16:20 [facility] 10/02 15:06 Order name: CBC with Diff; Complete Time: 16:20 [facility] 10/02 15:02 Order name: CT Traumagram (Head C Spine CAP wo con); Complete Time: 16:20 [facility] 10/02 15:06 Order name: Creatinine for Radiology; Complete Time: 16:20 [facility] 10/02 15:06 Order name: Type And Screen [facility] 10/02 15:54 Order name: Urine Dipstick--Ancillary (enter results) 10/02 15:02 Order name: Urine Dipstick-Ancillary (obtain specimen); Complete Time: 15:53 [facility] 10/02 15:06 Order name: Labs collected and sent; Complete Time: 15:15 [facility] Administered Medications: 15:36 Drug: NS 0.9% 1000 ml Route: IV; Rate: 1 bolus; Site: right antecubital; tw2 16:40 Follow up: Response: No adverse reaction; IV Status: Completed infusion; IV Intake: sv 1000ml 16:24 Drug: Potassium Chloride 20 mEq Route: PO; tw2 16:39 Follow up: Response: No adverse reaction sv 16:40 Drug: Tylenol #3 (300 mg-30 mg) 2 tabs Route: PO; sv 16:40 Follow up: Response: Medication administered at discharge. sv Disposition: 10/02/17 16:22 Discharged to Home. Impression: Fall (on) (from) other stairs and steps - eight, Contusion of other part of head, Type 2 diabetes mellitus. - Condition is Stable. - Discharge Instructions: Type 2 Diabetes Mellitus, Adult, Fall Prevention and Home Safety, Type 2 Diabetes Mellitus, Adult, [id number]. - Prescriptions for Tylenol- Codeine #3 300-30 mg Oral Tablet - take 2 tablets by ORAL route every 6 hours As needed; 20 tablet. - Medication Reconciliation Form, Thank You Letter, Antibiotic Education, Prescription Opioid Use form. - Follow up: Private Physician; When: 2 - 3 days; Reason: Recheck today's complaints, Continuance of care, Re-evaluation by your physician. - Problem is new. - Symptoms have improved. Signatures: Dispatcher [employer] Liyah Celis RN RN sv Anderson, Corey, MD MD cha Wise, Tara RN RN tw2 Corrections: (The following items were deleted from the chart) 16:42 16:22 10/02/2017 16:22 Discharged to Home. Impression: Fall (on) (from) other stairs sv and steps - eight; Contusion of other part of head; Type 2 diabetes mellitus. Condition is Stable. Forms are Medication Reconciliation Form, Thank You Letter, Antibiotic Education, Prescription Opioid Use. Follow up: Private Physician; When: 2 - 3 days; Reason: Recheck today's complaints, Continuance of care, Re-evaluation by your physician. Problem is new. Symptoms have improved. [facility]
[2017-10-02] MEDS ORDERED: POTASSIUM CL SA 10 MEQ TAB PO ONE (16:25)
[2017-10-02] MEDS ORDERED: CODEINE 30MG/APAP 300MG TAB ONE (16:33)
== END 2017-10-02 16:42 | disposition home or self-care (01) ==
LOC: ER 14:53
DX: S00.83XA Contusion of other part of head, initial encounter (principal); E11.9 Type 2 diabetes mellitus without complications; F17.210 Nicotine dependence, cigarettes, uncomplicated; I25.2 Old myocardial infarction; W11.XXXA Fall on and from ladder, initial encounter; Y93.9 Activity, unspecified; Y92.9 Unspecified place or not applicable; Z79.82 Long term (current) use of aspirin; Z88.5 Allergy status to narcotic agent; Z88.6 Allergy status to analgesic agent; Z88.8 Allergy status to other drugs, medicaments and biological substances
CPT/HCPCS: 36415; 70450; 71250; 72125; 80048; 81003; 85025; 86850; 86900; 86901; 96360; 99285; J7030

== ENCOUNTER 2018-03-10 19:32 | Emergency (ER) | payer SELFPAY ==
--- OUTSIDE RECORDS SUMMARY | 2018-03-10 19:35 | XMS REPORT | Clinical Summary ---
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 techniques.Technical factors are evaluated and adjusted to ensure appropriate moderation of exposure.Automated dose management technology is applied to adjust radiation exposure while achieving a diagnostic quality image. FINDINGS: No evidence of acute intracranial hemorrhage, mass, mass effect, midline shift, or acute infarct. Ventricles and sulci are normal in appearance for patient's age.Basal cisterns are clear. Calvarium is intact. Visualized orbits are unremarkable. No significant sinus inflammatory changes. Mastoid air cells are clear. IMPRESSION: 1. No CT evidence of acute intracranial abnormality. [id number] Procedure Note Interface, Radiology Results Incoming - [...] No CT evidence of acute intracranial abnormality. [id number] Performing Organization Address City/State/Zipcode Phone Number [facility] [address] [place] [address] CT Lumbar Spine Wo Contrast (08/08/2017 10:45 AM CDT) Narrative Performed At EXAMINATION:CT LUMBAR SPINE WO CONTRAST [facility] CLINICAL HISTORY:fall from horseback pain COMPARISON:None. TECHNIQUE: [...] compression No acute bony abnormality lumbar spine [id number] Procedure Note Hm Interface, Radiology Results - 08/08/2017 11:28 AM [...] compression No acute bony abnormality lumbar spine [id number] Performing Organization Address [facility] Phone Number [facility] [address] [place] [address] CT Thoracic Spine Wo Contrast (08/08/2017 10:45 AM CDT) Narrative Performed At EXAMINATION:CT THORACIC SPINE WO CONTRAST [facility] CLINICAL HISTORY:fall from horseupper back pain COMPARISON:None. TECHNIQUE: CT imaging was performed with iterative reconstruction technique and/or automated exposure control to reduce radiation dose. IMPRESSION: Thoracic spine alignment is within normal limits. Mild multilevel endplate degenerative changes. No moderate or severe canal/foraminal narrowing. No fractures or aggressive bony lesions. [facility]-[id number] Procedure Note Hm Interface, Radiology Results Incoming [...] narrowing. No fractures or aggressive bony lesions. [id number] Performing Organization Address [facility] Phone Number [facility] [address] [place] [address] POC glucose (04/05/2017 8:24 AM CLIENT FINANCE ANALYST)Only the most recent of2 resultswithin the time period is included. POC glucose (H) 65 - 99 mg/dL [facility] DEPARTMENT OF PATHOLOGY AND Comment: GENOMIC MEDICINE Meter ID: [id number] Director [employer]: Daljit Gonsales Performing Organization Address [facility] Phone Number [facility] DEPARTMENT OF PATHOLOGY AND [id number] [place] [address] [place] [address] GENOMIC MEDICINE Echocardiogram complete w contrast and 3D if needed (04/05/2017 8:00 AM CLIENT FINANCE ANALYST) AoV Area, Vmax 4.68 cm2 [facility] AoV Area, VTI 4.86 cm2 [facility] AoV Mean PG 2.40 mmHg [facility] AoV Peak PG 4.08 mmHg [facility] AoV Vmax 1.01 m/s [facility] AoV VTI 0.18 m [facility] IVS,d 1.17 0.6 - 1.2 cm [facility] LV,d 5.27 cm [facility] LV EF,A2C 65.63 % [facility] LV EF,A4C 61.55 % [facility] LV EF,BP 64.76 % [facility] [place],d A2C 9.16 cm [facility] [place],d A4C 8.30 cm [facility] [place],s A2C 7.41 cm [facility] [place],s A4C 7.15 cm [facility] LV,s 3.90 cm [facility] LV SV,A2C 50.94 % [facility] LV SV,A4C 53.14 % [facility] LV Vol,d A2C 77.62 mL [facility] LV Vol,d A4C 86.34 ml [facility] LV Vol,d BP 85.51 ml [facility] LV Vol,s A2C 26.68 mL [facility] LV Vol,s A4C 33.20 ml [facility] LV Vol,s BP 30.14 nl [facility] LVOT Diam,S 2.49 cm [facility] LVOT Vmax 0.97 m/s [facility] LVOT VTI 0.18 m [facility] LVPWD,d 1.06 cm [facility] TR Vpeak 2.94 mm/s [facility] MV E A ratio 1.14 mmHg [facility] TR pk grad 34.57 mmHg [facility] E wave decelartion time 202.15 msec [facility] MV Peak A Dwight 0.69 m/s [facility] MV valve area p 1/2 method 4.38 cm2 [facility] MV Peak E Dwight 0.79 m/s [facility] MV stenosis pressure 1/2 time 50.18 ms [facility] AV LVOT peak gradient 3.75 mmHg [facility] LV SYS VOL 42.86 ml [facility] LV JUNG VOL 96.07 ml [facility] LV SV Teich 2D 53.21 ml [facility] LVOT SI 41.60 ml/m2 [facility] AoV Cusp sep 2.46 [facility] AoV Vmn 0.75 [facility] IVS s 2D 1.45 [facility] LA Ao Ratio Mmode 1.12 [facility] LVOT Vmn 0.71 [facility] Pt Size 177.80 [facility] Pt Wt 90.72 [facility] PV AT 93.43 msec [facility] LVOT mean grad 2.17 mmHg [facility] LVPW s PLAX 1.53 cm [facility] MV Decel slope 3.90 m/s2 [facility] LA Vol MOD A4C 59.86 ml [facility] Velocity Ratio (V1/V2) 0.96 m/s [facility] EF 55.39 % [facility] E/A ratio 1.14 [facility] LVOT area 4.87 cm2 [facility] LA volume 32.0 cm3 [facility] LA Area d A4C 60 cm2 [facility] RVSP (TR) 39.57 mmHg [facility] RA pressure 5.00 mmHg [facility] RVSP 39.57 mmHg [facility] LA diam s 4.10 cm [facility] Aortic Root 3.63 [facility] DC End Jung Grad 7.61 [facility] DC End Diat Dwight 1.38 [facility] D E excurs 2.00 [facility] E f slope 0.07 [facility] E prime lat 0.14 [facility] E candido sept 0.10 [facility] PV acc T slope 7.90 [facility] Narrative Performed At The left ventricle chamber size is normal. [facility] Right ventricular size is normal. No pericardial effusion There is mild left ventricular concentric hypertrophy. Left Ventricular ejection fraction is 55 - 60%. Performing Organization Address City/State/Zipcode Phone Number [facility] [address] [place] [address] Lipid panel (04/05/2017 12:10 AM CLIENT FINANCE ANALYST) Cholesterol (H) <200 mg/dL [facility] DEPARTMENT OF PATHOLOGY AND GENOMIC MEDICINE Triglycerides (H) <150 mg/dL [facility] DEPARTMENT OF PATHOLOGY AND GENOMIC MEDICINE HDL cholesterol (L) >40 mg/dL [facility] DEPARTMENT OF PATHOLOGY AND GENOMIC MEDICINE LDL cholesterol (H)Comment: Result <100 mg/dL [facility] DEPARTMENT OF obtained by direct LDL PATHOLOGY AND GENOMIC measurement MEDICINE Lipid panel interpretation [facility] DEPARTMENT OF Comment: PATHOLOGY AND GENOMIC Total Cholesterol (mg/dL) MEDICINE <200 Desirable [phone] >=240High Triglycerides (mg/dL) <150 Normal [id number]-tefb 200-499High >=500Very high HDL Cholesterol (mg/dL) <40Low (male) <40Low (female) LDL Cholesterol (mg/dL) <100 Optimal 100-129Near or above optimal [phone] 160-189High >=190Very high Risk Catergories that modify [...] persons with high triglycerides (>=200 mg/dL) Specimen Plasma specimen Performing Organization Address [facility] Phone Number [facility] DEPARTMENT PATHOLOGY AND [address] [place] [address] Dr Brett Healy[place]IZAB[place] [id number] [facility] Bedside glucose (04/04/2017 10:30 PM CLIENT FINANCE ANALYST) POC glucose 117 Specimen Blood Partial thromboplastin time, activated (04/04/2017 2:58 PM CLIENT FINANCE ANALYST) PTT 23.0 - 36.0 sec [facility] DEPARTMENT OF Comment: PATHOLOGY AND GENOMIC PTT therapeutic range for unfractionated heparin is MEDICINE 61.0-112.0 seconds which corresponds to Anti-Xa 0.3-0.7 U/ml. Specimen Blood Performing Organization Address [facility] Phone Number [facility] DEPARTMENT OF PATHOLOGY AND [address] [place] [address] [place] [address] [facility] Prothrombin time with INR (04/04/2017 2:58 PM CLIENT FINANCE ANALYST) Prothrombin time 12.0 - 15.0 sec [facility] DEPARTMENT OF PATHOLOGY AND GENOMIC MEDICINE INR [facility] DEPARTMENT OF Comment: PATHOLOGY AND GENOMIC The International Normalized Ratio (INR) is a therapeutic MEDICINE monitoring tool for patients who are stable on oral anticoagulant therapy. An INR of 2.0-3.0 is suggested for deep vein thrombosis/pulmonary embolism. Specimen Blood Performing Organization Address [facility] Phone Number [facility] DEPARTMENT PATHOLOGY AND [address] [place] [address] [place] [address] [facility] after 03/09/2017 Advance Directives For more information, please contact:Vivek Rooney[address] [place] [id number] Code Status Date Activated Date Inactivated Comments Full Code 04/04/2017 7:18 PM 04/05/2017 3:39 PM Code Status decision reached by: Patient
--- OUTSIDE RECORDS SUMMARY | 2018-03-10 19:36 | XMS REPORT | Clinical Summary ---
:1980 Author Organization [facility] Address [address] [place] [address] Care Team Providers Name Role Phone Momo Primary Care Provider Allergies Active Allergy Reactions Severity Noted Date Comments Cyclobenzaprine Hives 08/11/2016 Cyclobenzaprine Hcl Itching 09/25/2016 Ibuprofen Other (See Comments) 09/25/2016 Stomach upset Ibuprofen Other (See Comments) 09/25/2016 Stomach upset Nsaids (Non-Steroidal 01/19/2017 Anti-Inflammatory Drug) Ketorolac Itching 09/28/2017 Medications Medication Sig Dispensed Refills Start Date End Date Status metFORMIN Take 500 mg by 0 Active (GLUCOPHAGE) 500 mouth 2 (two) MG tablet times daily with breakfast and dinner. gabapentin Take 300 mg by 0 Active (NEURONTIN) 300 MG mouth 3 (three) capsule times daily. ondansetron Take 1 tablet 10 tablet 0 03/08/2017 09/28/2017 Discontinued (ZOFRAN) 4 MG (4 mg total) by tablet mouth 3 (three) times daily as needed for Nausea for up to 10 doses. traMADol (ULTRAM) Take 1 tablet 30 tablet 0 09/28/2017 10/08/2017 50 mg tablet (50 mg total) by mouth every 6 (six) hours as needed for Pain for up to 10 days. Max Daily Amount: 200 mg Active Problems Not on file Encounters Date Type Specialty Care Team Description 09/28/2017 Emergency Emergency Medicine Jennifer Combs MD Fall, initial encounter (Primary Dx); Acute pain of right knee; Acute right ankle pain; Right foot pain; Swelling of foot joint, right; Sprain of anterior talofibular ligament of right ankle, initial encounter after 03/09/2017 Social History Tobacco Use Types Packs/Day Years [...] CDT Plan of Treatment Not on file Procedures Procedure Name Priority Date/Time Associated Diagnosis Comments XR FOOT RIGHT 3 STAT 09/28/2017 8:38 AM Results for this VIEW CDT procedure are in the results section. XR KNEE RIGHT STAT 09/28/2017 8:38 AM Results for this COMPLETE (4 VIEWS) CDT procedure are in the results section. XR ANKLE 3 VIEWS STAT 09/28/2017 8:38 AM Results for this RIGHT CDT procedure are in the results section. after 03/09/2017 Results XR foot 3 views right (09/28/2017 8:38 AM CDT) Narrative Performed At FINAL REPORT [facility] TECHNIQUE: Frontal, lateral, and oblique radiographs of the right foot dated 09/28/2017 HISTORY: Fall, ankle pain COMPARISON: None. FINDINGS: No fracture or dislocation. Bones are normal in density. No joint space narrowing. Lisfranc joint is well aligned on these nonstress views. No bone erosion or soft tissue nodule seen. No radiodense foreign body or subcutaneous emphysema. IMPRESSION: No fracture or dislocation. Signed: Oralia Conti MD Report Verified Date/Time:09/28/2017 08:45:31 Reading Location: [facility] Radiology Reading Room Procedure Note Interface, External [...] emphysema. IMPRESSION: No fracture or dislocation. Signed: Oralia Conti MD Report Verified Date/Time: 09/28/2017 08:45:31 Reading Location: [facility] Radiology Reading Room Performing Organization Address [facility] Phone Number [facility] XR ankle 3 views right (09/28/2017 8:38 AM CDT) Narrative Performed At FINAL REPORT [facility] Ankle, right, three images INDICATION: Fall, ankle pain COMPARISON: None available IMPRESSION: There is soft tissue swelling. There is no evidence of acute fracture or dislocation. The joint spaces are maintained. A small posterior calcaneal spur is present. Signed: Deisi Waterman MD Report Verified Date/Time:09/28/2017 08:51:13 Reading Location: [facility] Radiology Reading Room Procedure Note Interface, External [...] Report Verified Date/Time: 09/28/2017 08:51:13 Reading Location: [facility] Radiology Reading Room Performing Organization Address [facility] Phone Number [facility] XR knee complete 4 views right (09/28/2017 8:38 AM CDT) Narrative Performed At FINAL REPORT [facility] Knee, right, four images INDICATION: Fall COMPARISON: None available IMPRESSION: There is no evidence of acute fracture or dislocation. There is negligible joint space loss with no significant joint effusion seen. There is mild patellar enthesopathy. The soft tissues are grossly unremarkable. Signed: Deisi Waterman MD Report Verified Date/Time:09/28/2017 08:50:03 Reading Location: [facility] Radiology Reading Room Procedure Note Interface, External [...] Report Verified Date/Time: 09/28/2017 08:50:03 Reading Location: [facility] Radiology Reading Room Performing Organization Address City/State/Zipcode Phone Number [facility] after 03/09/2017
--- OUTSIDE RECORDS SUMMARY | 2018-03-10 19:36 | XMS REPORT ---
:1980 [facility] [address] [place] [address] [address]. Dao [address] [place] [address] Care Team Providers Name Role Phone NYLA MATHEW Unavailable Unavailable KIRIT, DR ROCAEL Camarena Unavailable Unavailable HERBER, DR EASTON Unavailable Unavailable USMAN WAYNE Unavailable Unavailable DR EBONY HARO Unavailable Unavailable PHOEBE, DR CUADRA Unavailable Unavailable HOLGER MONROE Unavailable Unavailable DR PHOENIX HENDERSON Unavailable Unavailable JOAN MCCRAY Unavailable Unavailable KIRIT, DR GALVAN Unavailable Unavailable ALEAX VALDOVINOS Unavailable Unavailable DR JUANCHO GARZA Unavailable Unavailable CASS, DR HILL Unavailable Unavailable Payers Payer Name Policy Type Policy Number Effective Date Expiration Date Problems This patient has no known problems. Allergies, Adverse Reactions, Alerts Allergy Name Allergy Status Severity Reaction(s) Onset Inactive Treating Comments Type Date Date Clinician ketorolac DA Active [place] 2017-0 6-11 00:00: 00 dicyclomine DA Active [place] 5-21 00:00: 00 ibuprofen DA Active [place] -12 00:00: 00 cyclobenzaprine DA Active [place] -12 00:00: 00 Medications This patient has no known medications. Encounters Start End Encounter Admission Attending Care Care Encounter Date/Time Date/Time Type Type Clinicians Facility Department ID 2017-10-08 2017-10-08 Emergency E PRIYANKA [facility] [id number] 11:21:00 13:15:00 NYLA 2017-08-19 2017-08-19 Emergency E ROCAEL BETH [facility] [id number] 15:33:00 18:45:00 2017-08-11 2017-08-11 Emergency E JEMMA CRAVEN [facility] [id number] 11:55:00 13:29:00 2017-04-27 2017-04-27 Emergency E ROSANA, [facility] [id number] 08:54:00 10:01:00 USMAN 2017-04-20 2017-04-20 Outpatient E TAHIR, [facility] [facility] [place] [id number] 11:00:00 14:40:00 EBONY 2016-12-12 2016-12-12 Emergency E , [facility] [id number] 20:40:00 21:38:00 WASIM Results Test Description Test Time Test Comments Text Results Atomic Results Result Comments TROPONIN I 2017-10-08 13:09:00 Test Item Value Reference Range Comments TROPONIN I (test code=A84) <0.015 ng/mL 0.000-0.045 PRO TIME AND [id number] 12:27:00 Test Item Value Reference Range Comments PT (test code=TT) 10.9 s 9.8-13.6 INR (test code=INR) 1.0 INRH (test code=INRH) SUGGESTED THERAPEUTIC RANGE FOR INR: 2.5 - 3.5 For Patients with Prosthetic Valves or Patients with recurrent Thromboembolic Events 2.0 - 3.0 For Most Other Applications PTT (test code=PTT) 20.9 s 20.2-38.0 PTTH (test code=PTTH) To monitor the effectiveness of heparin, we offer the Anti-Xa (Heparin Assay). It can be used for either unfractionated or LMW Heparin. Order Code is ANTI-XA CBC (INCLUDES AUTOMATED DIFFERENTIAL)2017-10-08 12:25:00 Test Item Value Reference Range Comments WBC (test code=WBC) 11.1 10\S\3/uL 4.5-11.0 RBC (test code=RBC) 4.89 10\S\6/uL 4.30-5.70 HGB (test code=HBG) 13.7 g/dL 14.0-18.0 HCT (test code=HCT) 41.3 % 35.0-46.0 MCV (test code=MCV) 84.5 fL 80.0-94.0 MCH (test code=MCH) 28.0 pg 27.0-31.0 MCHC (test code=MCHC) 33.2 g/dL 32.0-36.0 RDW (test code=RDW) 15.1 % 11.5-14.5 PLT (test code=PLT) 363 10\S\3/uL 130-400 MPV (test code=MPV) 8.7 fL 9.4-12.4 NEUTROP # (test code=NE#) 7.9 10\S\3/uL 2.0-8.0 LYMPH # (test code=LY#) 1.8 10\S\3/uL 1.2-4.0 MONOCYTE # (test code=MO#) 0.8 10\S\3/uL 0.0-1.1 EOSINOPH # (test code=EO#) 0.5 10\S\3/uL 0.0-0.7 BASOPHIL # (test code=BA#) 0.1 10\S\3/uL 0.0-0.3 IG # (test code=IG#) 0.04 10\S\3/uL 0.00-0.06 NRBC # (test code=NRBC#) 0.00 10\S\3/uL 0.00-0.01 NEUTROPH % (test code=NE%) 71.5 % 35.0-73.0 LYMPH % (test code=LY%) 16.4 % 20.0-55.0 MONO % (test code=MO%) 7.0 % 2.5-10.0 EOSINOPH % (test code=EO%) 4.1 % 0.0-5.0 BASOPHIL % (test code=BA%) 0.6 % 0.0-2.0 IG % (test code=IG%) 0.4 % 0.0-0.8 NRBC% (test code=NRBC%) 0.0 % 0.0-0.2 MANDIFF (test code=MDIFF) NO NO RBC MORPH (test code=RBCMOR) NORMAL [id number] 12:23:00 Test Item Value Reference Range Comments CPK (test code=32A) 39 IU/L 39-308 COMPREHENSIVE METABOLIC [id number] 12:23:00 Test Item Value Reference Range Comments GLUCOSE (test code=06D) 245 mg/dL 75-100 SODIUM (test code=01A) 139 mmol/L 136-145 POTASSIUM (test code=01B) 3.4 mmol/L 3.6-5.1 CHLORIDE (test code=04A) 105 mmol/L 98-107 CO2 (test code=02A) 25 mmol/L 22-32 ANION GAP (test code=ANG) 12.4 mmol/L BUN (test code=05D) 7 mg/dL 7-18 CREATININE (test code=03E) 0.8 mg/dL 0.7-1.3 BUN/CREA (test code=BCR) 9 12-20 CALCIUM (test code=09D) 8.4 mg/dL 8.3-9.5 BILI TOTAL (test code=11A) 0.2 mg/dL 0.2-1.0 PROTEIN (test code=07D) 6.7 g/dL 6.4-8.2 ALBUMIN (test code=08D) 3.3 g/dL 3.5-4.8 GLOBULIN (test code=GLB) 3.4 g/dL 1.5-3.8 ALB/GLOB (test code=AGRR) 1.0 1.0-2.6 ALK PHOS (test code=35A) 110 IU/L 42-121 AST (test code=30A) 11 IU/L <=42 ALT (test code=31A) 18 IU/L <=78 DRUGS OF [id number] 12:14:00 Test Item Value Reference Range Comments DRUG [...] ng/mL Barbiturates 200 ng/mL Opiates 2000 ng/mL [id number] 12:12:00 Test Item Value Reference Range Comments COLOR (test code=COLU) YELLOW YELLOW CLARITY (test code=CLA) CLEAR CLEAR GLUCOSE UR (test code=UA GLUCOSE) 3+ NEGATIVE BILI UR (test code=BILE) NEGATIVE NEGATIVE KETONES UR (test code=ULISSES) NEGATIVE NEGATIVE SP GRAVITY (test code=SPGR) 1.027 1.005-1.030 PH UR (test code=PH) 6.0 4.5-8.0 PROTEIN UR (test code=PU) NEGATIVE NEGATIVE UROBIL UR (test code=UROQ) 0.2 EU/dL 0.2-1.0 NITRITE UR (test code=NITRITE) NEGATIVE NEGATIVE BLOOD UR (test code=UA BLOOD) NEGATIVE NEGATIVE LEUK ES UR (test code=LEUK) NEGATIVE NEGATIVE CT CERVICAL SPINE W/O [id number] 12:07:40Exam: CT C-spine.Location: H3Consuur: : Unspecified fallTechnique: Unenhanced spiral slices were taken through the cervical spine.Sagittal and coronal reformations were performed. One or more of the followingradiation dose reduction techniques was used: automated exposure control,adjustment ofmA and/or KV according to patient size, and/or utilization ofiterative reconstruction technique.Findings:No fracture or dislocation is seen. The bony cortices are intact. The discspaces are well preserved. The vertebral bodies demonstrate normal heights andalignment.The spinal canal is capacious. No spinal stenosis is seen. The neural foraminaare patent. The surrounding paraspinal soft tissues are normal.Impression:Unremarkable exam.CT HEAD W/O [id number] 11:56:11EXAM : CT head without contrastLocation: A1 COMPARISON: NoneINDICATION: Fall, dizzyTECHNIQUE: Axial images of the brain were performed with 5 mm slices. Imageswere reviewed in brain and bone windows. Coronal and sagittal reformattedimages were performedDISCUSSION:No intracranial mass, hemorrhage, hydrocephalus, midline shift, or herniationis seen. No abnormal attenuation is seen. No calvarial fracture or scalpcontusion is identified. Included portions of the orbits are unremarkable. The visualizedparanasal sinuses are unremarkable.IMPRESSION:1. No acute intracranial abnormalities. 2. No fractureor scalp contusion.One or more of the following dose reduction techniques were used: Automatedexposure control, adjustment of the mA and/or kV according to patient size,and/or utilization of iterative reconstruction technique.DLP: 1246 mGy-cm CTDI 63 mGyXR CHEST 1 VIEW [id number] 11:52: 12EXAM: Portable chest x-rayLocation: [id number]: Chest x-ray on INDICATION: Dizziness, tachycardiaDISCUSSION:No consolidation or pleural effusion is seen. The cardiomediastinal silhouetteis within normal limits. No acute bony abnormalities are identified.IMPRESSION: No evidence of acute abnormality.RAD, ANKLE, MIN 3 VIEWS, [id number] 08:51:00Reason for exam:-& gt;FALLReason for exam:->ANKLE PAINShould this be performed at the bedside?-& gt;NoFINAL REPORT Ankle, right, three images INDICATION : Fall, ankle pain COMPARISON: None available IMPRESSION: There is soft tissue swelling. There is no evidence of acute fractureor dislocation. The joint spaces are maintained. A small posterior calcaneal spur is present. Signed: Deisi Waterman MDReport Verified Date/Time: 09/28/2017 08:51:13 Reading Location: [facility] Radiology Reading Room RAD, KNEE, COMPLETE (4 VIEWS), [id number] 08:50:00Reason for exam:->FALLReason for exam:->ANKLE PAINShould this be performed at the bedside?->NoFINAL REPORT Knee, right, four images INDICATION: Fall COMPARISON: None available IMPRESSION: There is no evidence of acute fracture or dislocation. There is negligible joint space loss with no significant joint effusion seen. There is mild patellar enthesopathy. The soft tissues are grossly unremarkable. Signed: Deisi Waterman MDReport Verified Date/Time: 09/28/2017 08:50:03 Reading Location: [facility] Radiology Reading Room RAD, FOOT, MIN 3 VIEWS, [id number] 08:45:00Reason for exam:->FALLReason for exam:->ANKLE PAINShould this be performed at the bedside?->NoFINAL REPORT TECHNIQUE: Frontal, lateral, and oblique radiographs of the right foot dated 09/28/2017 HISTORY: Fall, ankle pain COMPARISON: None. FINDINGS:No fracture or dislocation. Bones are normal in density. No joint space narrowing. Lisfranc joint is well aligned on these nonstress views. No bone erosion or soft tissue nodule seen. No radiodense foreign body or subcutaneous emphysema. IMPRESSION:No fracture or dislocation. Signed: Ariel Hernandez MDReport Verified Date/Time: 09/28/2017 08:45:31 Reading Location: [facility] Radiology Reading Room Electronically signed by: ARIEL HERNANDEZ on 2017 08:45 AMCT STONE PROTOCOL [id number] 17:07:45Renal stone protocol CT of the abdomen and pelvisClinical indication: Right flank paincomparison: 2016Location R 16Spiral CT is obtained from lung bases to inferior pubic rami with 3 mm axial,coronal and sagittal reconstructions provided.One or more of the following dose reduction techniques wereused: Automatedexposure control, adjustment of the MA and/or kV according to patient size,and/or utilization of iterative reconstruction technique. DLP 997 mGy*cm.Three 5-mm pulmonary nodules at the left lung base are unchanged since theexamination of 6 months ago. Follow -up in one year is recommendedto documenttheir stability.Heart is normal in size. Great [...] no ascites or significantadenopathy.The bony structures are unremarkable.Impression :1. 3 subcentimeter left lower lobe pulmonary nodules which may representgranulomas. Follow-up may be appropriate in one year.2. No renal or ureteral calculi or hydronephrosis.3. Benign-appearing hepatic calcification, unchanged.AMYLASE AND [id number] 16:53:00 Test Item Value Reference Range Comments AMYLASE (test code=10A) 28 U/L 28-100 LIPASE (test code=60A) 90 IU/L 73-393 COMPREHENSIVE METABOLIC [id number] 16:53:00 Test Item Value Reference Range Comments [...] (test code=31A) 15 IU/L <=78 DRUGS OF [id number] 16:50:00 Test Item Value Reference Range Comments [...] ng/mL Opiates 2000 ng/mL PRO TIME AND [id number] 16:45:00 Test Item Value Reference Range Comments [...] or LMW Heparin. Order Code is ANTI-XA [id number] 16:39:00 Test Item Value Reference Range Comments [...] MORPH (test code=RBCMOR) NORMAL XR SPINE CERVICAL [id number] 13:05:14Cervical spine, 6 viewsLocation code: H3Exnvszdn history: M54.2: CERVICALGIAComments: AP, oblique, open mouth odontoid and lateral views of the cervicalspine demonstrate no displaced fracture or malalignment. Intervertebral discspaces are maintained. The oblique projections demonstrate no significantforaminal narrowing. The soft tissues are unremarkable. Impression: No acute abnormality.XR FOOT LEFT 1 OR 2 [id number] 09:35:56EXAMINATION: XR ANKLE LEFT 2 VIEW, [...] Articular spaces are wellmaintained.XR ANKLE LEFT 2 [id number] 09:35:56EXAMINATION: XR ANKLE LEFT 2 VIEW, XR [...] spaces are wellmaintained.MRA NECK W & WO [id number] 14:42 :31MRA OF THE CAROTIDS WITHOUT CONTRASTHISTORY: [...] bilateral common or internalcarotid arteries.MRA HEAD W/O [id number] 14: 28:18MRA OF THE LYTTON OF [place] WITHOUT CONTRASTHISTORY: Near syncopal episodeTECHNIQUE: [...] No aneurysmal dilatation.MRI BRAIN W/ AND W/O [id number] 13:51:27MRI brain with and without contrastLocation code: [id number] history: Near syncopeTechnique: Multiplanar multisequence MR imaging [...] with and without contrast.GLUCOMETER GLUCOSE- LAB USE [id number] 11:46:00 Test Item Value Reference Range Comments GLUCOMETER (test code=GMG) 161 mg/dL 70-100 CLEANED METERMeter ID: [id number]: [id number] WILFRED RAJU XR ELBOW LEFT COMPLETE 3 [id number] 10:38:15Right Elbow, 3 viewsLocation Code: [id number] HISTORY: Injury, fallCOMMENTS: AP, lateral, and oblique views of the right elbow demonstrate noacute fracture or malalignment. The soft tissues are unremarkable.IMPRESSION: No acute radiographic abnormality.XR CHEST 2 [id number] 10:38:03PA and lateral chest, 2 views.Location code: Z3IKOZLLZK HISTORY: Dizziness, fallCOMPARISON: NoneCOMMENTS: The lungs are clear and well inflated. The costophrenic angles aresharp. The cardiomediastinalsilhouette is unremarkable. The bones are intact.IMPRESSION: No acute abnormalityXR SHOULDER LEFT 3 [id number] 10:37:47Left shoulder, 3 viewsLocation Code: M7RRDHDOPO HISTORY: Fall, injury,COMMENTS: AP views in internaland external rotation along with a transscapularY view of the left shoulder were obtained. There is no acute fracture ormalalignment. The soft tissues are unremarkable.IMPRESSION: No acute abnormality.XR HUMERUS LEFT AP & amp; [id number] 10:37:28Left humerus, 2 viewsLocation Code: W6Bijdrlzp history: Trauma, injury, pain Comment: AP and lateralviews of the left humerus demonstrate no displacedfracture or malalignment. The soft tissues are unremarkable.Impression:No acute radiographic abnormality.[id number] 10: 36:00 Test Item Value Reference Range Comments D-DIMER (test code=DDI) <200 ng/mL D-DU 0-234 D-DIMER COMMENT (test *Level to rule out DVT or PE: code=DDCOM) <235 ng/mL D-DU* COMPREHENSIVE METABOLIC [id number] 10:36:00 Test Item Value Reference Range Comments [...] ALT (test code=31A) 18 IU/L <=78 CARDIAC [id number] 10:19:00 Test Item Value Reference Range Comments TROPONIN I (test code=A84) <0.015 ng/mL 0.000-0.045 CKMB (test code=A49) <1.0 ng/mL <=3.6 CPK (test code=32A) 38 IU/L 39-308 PRO TIME AND [id number] 10:12:00 Test Item Value Reference Range Comments [...] MORPH (test code=RBCMOR) NORMAL CT HEAD W/O [id number] 10:02:40CT brain without contrastLocation code: [id number] HISTORY: Dizziness, headache COMPARISON: None.TECHNIQUE: Routine unenhanced [...] code=60A) 81 IU/L 73-393 CBC (INCLUDES AUTOMATED DIFFERENTIAL)*[id number] 13:47:00 Test Item Value Reference Range Comments [...] NO RBC MORPH (test code=WRBCMOR) NORMAL CT, [id number] 09:15:00Reason for exam:->ABDOMINAL PAINReason for exam :->DIARRHEAReason [...] MDReport Verified Date/Time: 03/08/2017 09:15:05 Reading Location: [facility] C013X Ortho Consult Reading Room BASIC METABOLIC [id number] 08:21:00 Test Item Value Reference Range Comments SODIUM (BEAKER) (test 138 meq/L 135-148 tbsw=925) POTASSIUM (BEAKER) (test 3.9 meq/L 3.6-5.5 aszz=400) CHLORIDE (BEAKER) (test 108 meq/L 98-106 tktz=678) CO2 (BEAKER) (test 24 meq/L 24-32 ozlr=567) BLOOD UREA NITROGEN 7 mg/dL 10-26 (BEAKER) (test rqwg=409) CREATININE (BEAKER) (test 0.56 mg/dL 0.50-1.20 yikm=290) GLUCOSE RANDOM (BEAKER) 138 mg/dL 70-110 (test rdcm=441) CALCIUM (BEAKER) (test 8.9 mg/dL 8.5-10.5 cdgp=796) EGFR (BEAKER) (test 163 mL/min/1.73 sq m ESTIMATED GFR IS NOT nfyk=1845) ACCURATE CREATININE CLEARANCE IN PREDICTING GLOMERULAR FILTRATION RATE. ESTIMATED GFR IS NOT APPLICABLE FOR DIALYSIS PATIENTS. AST (SGOT)2017-03-08 08:18:00 Test Item Value Reference Range Comments AST (SGOT) (BEAKER) (test tqqd=391) 11 U/L 5-40 ALT (SGPT)2017-03-08 08:18:00 Test Item Value Reference Range Comments ALT (SGPT) (BEAKER) (test eqmg=947) 21 U/L 5-50 [id number] 08:18:00 Test Item Value Reference Range Comments LIPASE (BEAKER) (test xzcp=502) 37 U/L 40-240 BILIRUBIN, ADULT [id number] 08:16:00 Test Item Value Reference Range Comments BILIRUBIN TOTAL (BEAKER) (test ssrn=754) 0.3 mg/dL 0.1-1.2 CBC W/PLT COUNT & AUTO [id number] 08:13:00 Test Item Value Reference Range Comments WHITE BLOOD CELL COUNT (BEAKER) (test 13.1 10e3/ L 4.0-10.0 ltzh=607) RED BLOOD CELL COUNT (BEAKER) (test qzzc=804) 4.85 10e6/ L 4.20-5.80 HEMOGLOBIN (BEAKER) (test jtlu=581) 13.9 g/dL 13.0-16.8 HEMATOCRIT (BEAKER) (test vvec=240) 42.8 % 40.0-50.0 MEAN CORPUSCULAR VOLUME (BEAKER) (test 88.3 fL 82.0-98.0 tnyi=944) MEAN CORPUSCULAR HEMOGLOBIN (BEAKER) (test 28.6 pg 27.0-33.0 vqyu=915) MEAN CORPUSCULAR HEMOGLOBIN CONC (BEAKER) 32.4 g/dL 32.0-36.0 (test vuxo=330) RED CELL DISTRIBUTION WIDTH (BEAKER) (test 13.2 % 10.3-14.2 ance=594) PLATELET COUNT (BEAKER) (test eybi=113) 366 10e3/ L 150-430 MEAN PLATELET VOLUME (BEAKER) (test gyoh=057) 6.9 fL 6.5-10.5 NEUTROPHILS RELATIVE PERCENT (BEAKER) (test 77 % dqzj=421) LYMPHOCYTES RELATIVE PERCENT (BEAKER) (test 12 % cgtr=377) MONOCYTES RELATIVE PERCENT (BEAKER) (test 6 % iqzj=479) EOSINOPHILS RELATIVE PERCENT (BEAKER) (test 4 % iprz=448) BASOPHILS RELATIVE PERCENT (BEAKER) (test 1 % arvn=428) NEUTROPHILS ABSOLUTE COUNT (BEAKER) (test 10.10 10e3/ L 1.80-8.00 rdcs=870) LYMPHOCYTES ABSOLUTE COUNT (BEAKER) (test 1.61 10e3/ L 1.48-4.50 ivua=749) MONOCYTES ABSOLUTE COUNT (BEAKER) (test 0.83 10e3/ L 0.00-1.30 ujbm=998) EOSINOPHILS ABSOLUTE COUNT (BEAKER) (test 0.46 10e3/ L 0.00-0.50 avnb=456) BASOPHILS ABSOLUTE COUNT (BEAKER) (test 0.10 10e3/ L 0.00-0.20 mdgq=711) RAD, FOOT, MIN 3 VIEWS, [id number] 08:37:00Reason for exam:->FOOT INJURYleft foot injury , horse stepped on it this morningFINAL REPORT TECHNIQUE: Frontal, oblique, and lateral views of the left foot.INDICATION: 37-year-old man after foot injury. COMPARISON: None. FINDINGS: No acute fractures or dislocations.Joint spaces are within normal limits.Soft tissues are grossly unremarkable. IMPRESSION:No acute osseous abnormalities of the left foot. Signed: Elsa Meridaeport Verified Date/Time: 02/25/2017 08:37:49 Reading Location: [facility] B1 C013Y CT Body Reading Room CT ABDOMEN AND PELVIS WITH CONTRAST*WW*2017-02-25 03:54:12CT ABDOMEN AND PELVIS WITH CONTRAST*WW* Location:[address] hours services are provided 02/25/2017 2:48 AMIndication:RLQ pain.Comparison: Not availableTechnique: Axial CT of the abdomen and pelvis followingthe bolusadministration of nonionic intravenous contrast. Sagittal and coronalreformatted images areprovided for interpretation. All CT scans at [facility] use dose modulation, iterative reconstruction, [...] (test code=WAUAM) NO NO CBC (INCLUDES AUTOMATED DIFFERENTIAL)*[id number] 02:15:00 Test Item Value Reference Range Comments [...] MORPH (test code=WRBCMOR) NORMAL RAPID DRUG SCREEN, [id number] 20:58:00 Test Item Value Reference Range Comments BARBITURATE URINE (BEAKER) (test nhec=978) Negative Negative BENZODIAZEPINE SCREEN URINE (BEAKER) (test Negative Negative auwk=498) COCAINE (METAB.) SCREEN (BEAKER) (test xvkt=3198) Negative Negative METHADONE SCREEN (BEAKER) (test blwi=6348) Negative Negative OPIATE SCREEN URINE (BEAKER) (test ehgz=931) Positive Negative CANNABINOID SCREEN URINE (BEAKER) (test vasy=284) Positive Negative AMPH/METHAMPH SCREEN (BEAKER) (test cosd=9769) Negative Negative PHENCYCLIDINE SCREEN URINE (BEAKER) (test ykye=535) Negative Negative DRUG CUTOFF CONC.Cocaine 300 ng/mL Cannabinoid 50 ng/mLBenzodiazepine 200 ng/mLBarbiturate 200 ng/ mLPhencyclidine 25 ng/mLOpiate 300 ng/mLMethadone 300 ng/mLAmphetamine/ 1000 ng/mL MethamphetamineThis assay provides an unconfirmed qualitative test result for the clinical management of patients in emergency situations. Chain of custody not maintained. Some sfjs-xme-jjobees medications, as well as adulterants, may cause inaccurate results. Clinical correlation should be applied. A more comprehensivedrug screen or confirmation of a detected drug may be performed upon request.URINALYSIS W/ [id number] 20:27:00 Test Item Value Reference Range Comments COLOR (BEAKER) (test bvrk=578) Light Yellow CLARITY (BEAKER) (test rmqz=114) Clear SPECIFIC GRAVITY UA (BEAKER) (test liqh=812) 1.016 1.001-1.035 PH UA (BEAKER) (test eydf=455) 6.0 5.0-8.0 PROTEIN UA (BEAKER) (test qyfi=282) Negative Negative GLUCOSE UA (BEAKER) (test tieu=095) >500 mg/dL Negative KETONES UA (BEAKER) (test qzvu=431) Negative Negative BILIRUBIN UA (BEAKER) (test omjj=827) Negative Negative BLOOD UA (BEAKER) (test pcze=121) Negative Negative NITRITE UA (BEAKER) (test ejny=103) Negative Negative LEUKOCYTE ESTERASE UA (BEAKER) (test yerf=557) Negative Negative UROBILINOGEN UA (BEAKER) (test laew=237) < mg/dL 0.2-1.0 RBC UA (BEAKER) (test ywmc=589) < /HPF WBC UA (BEAKER) (test wkrx=314) 0 /HPF BACTERIA (BEAKER) (test mrmo=603) Rare MUCUS (BEAKER) (test vnzl=8732) Rare SOURCE(BEAKER) (test sqma=4192) KETONE, [id number] 20:12:00 Test Item Value Reference Range Comments KETONES, BLOOD (BEAKER) (test mcme=6308) 0.0 mmol/L <0.4 POCT-GLUCOSE [id number] 20:08:00 Test Item Value Reference Range Comments POC-GLUCOSE METER (BEAKER) 241 mg/dL 70-110 TESTED AT [facility] [address] [facility] (test vnin=1284) [facility] [address] BLOOD GAS, [id number] 20:05:00 Test Item Value Reference Range Comments PH VENOUS (BEAKER) (test zgvl=099) 7.42 7.32-7.42 PCO2 VENOUS (BEAKER) (test mjfq=269) 36 mmHg 41-51 PO2 VENOUS (BEAKER) (test dpjk=318) 43 mmHg 25-40 O2 SATURATION VENOUS (BEAKER) (test wgmh=427) 80.3 % 40.0-70.0 HCO3 VENOUS (BEAKER) (test jgco=749) 23 mmol/L 21-29 BASE EXCESS VENOUS (BEAKER) (test bxgf=575) -1.4 mmol/L -2.0-3.0 PATIENT TEMPERATURE (BEAKER) (test cayr=3509) 36.7 C CREATINE KINASE (CK), TOTAL AND [id number] 20:05:00 Test Item Value Reference Range Comments CREATINE KINASE TOTAL (BEAKER) (test mdoz=600) 57 U/L 30-300 CREATINE KINASE-MB (BEAKER) (test yxim=140) 0.6 ng/mL 0.0-4.9 CREATINE KINASE-MB INDEX (BEAKER) (test wpjf=808) 1.1 % CK-MB Reference Range:<5 Normal5-10 Borderline>10 AbnormalTROPONIN [id number] 20:05:00 Test Item Value Reference Range Comments TROPONIN I (BEAKER) (test ffpb=117) < ng/mL 0.00-0.15 Troponin I (TnI) levels [...] Range Comments B-TYPE NATRIURETIC PEPTIDE (BEAKER) (test jbll=703) < pg/mL 0-100 [id number] 19:59:00 Test Item Value Reference Range Comments D-DIMER QUANTITATIVE (BEAKER) (test bsvz=924) < MG/L FEU <0.50 Intended Use: The [...] within 95-100% range.RAD, CHEST, 1 VIEW, NON [id number] 19:59:00Reason for exam:->cpShould this be performed at the bedside?->YesFINAL REPORT Clinical History: cp Comparison Study: None Findings: The heartand lungs are within normal limits. The pleural spaces are clear. No significant bony or soft tissue abnormalities are seen. Impression: No active cardiopulmonary disease. Signed: Carlso Severino MDReport Verified Date/Time: 01/19/2017 19:59:25 Reading Location: [address] Consult Reading Room COMPREHENSIVE METABOLIC [id number] 19:58:00 Test Item Value Reference Range Comments TOTAL PROTEIN (BEAKER) 6.7 gm/dL 6.0-8.5 Specimen moderately (test gnou=152) hemolyzed ALBUMIN (BEAKER) (test 3.5 g/dL 3.5-5.0 Specimen moderately ezwb=3021) hemolyzed ALKALINE PHOSPHATASE 84 U/L 30-115 (BEAKER) (test vmza=426) BILIRUBIN TOTAL (BEAKER) 0.2 mg/dL 0.1-1.3 Specimen moderately (test hwua=892) hemolyzed SODIUM (BEAKER) (test 138 meq/L 135-148 cptj=053) POTASSIUM (BEAKER) (test 3.8 meq/L 3.5-5.5 Specimen moderately wjpu=311) hemolyzed CHLORIDE (BEAKER) (test 106 meq/L 98-106 nqfo=378) CO2 (BEAKER) (test 21 meq/L 20-31 qqmc=423) BLOOD UREA NITROGEN 6 mg/dL 10-26 (BEAKER) (test nllb=580) CREATININE (BEAKER) (test 0.84 mg/dL 0.50-1.20 Specimen moderately ypuu=043) hemolyzed GLUCOSE RANDOM (BEAKER) 289 mg/dL 70-110 (test ttja=972) CALCIUM (BEAKER) (test 8.8 mg/dL 8.5-10.5 tvex=225) AST (SGOT) (BEAKER) (test 20 U/L 5-40 Specimen moderately dugw=425) hemolyzed ALT (SGPT) (BEAKER) (test 13 U/L 6-50 Specimen moderately lzhr=929) hemolyzed EGFR (BEAKER) (test 103 mL/min/1.73 sq ESTIMATED GFR IS NOT lhjq=2969) m ACCURATE CREATININE CLEARANCE IN PREDICTING GLOMERULAR FILTRATION RATE. ESTIMATED GFR IS NOT APPLICABLE FOR DIALYSIS PATIENTS. CBC W/PLT COUNT & AUTO [id number] 19:42:00 Test Item Value Reference Range Comments WHITE BLOOD CELL COUNT (BEAKER) (test bfvv=478) 12.4 K/ L 4.0-10.0 RED BLOOD CELL COUNT (BEAKER) (test msnu=234) 4.98 M/ L 4.20-5.80 HEMOGLOBIN (BEAKER) (test dcwu=111) 14.4 GM/DL 13.0-16.8 HEMATOCRIT (BEAKER) (test flls=459) 43.5 % 40.0-50.0 MEAN CORPUSCULAR VOLUME (BEAKER) (test azxi=138) 87.4 fL 82.0-98.0 MEAN CORPUSCULAR HEMOGLOBIN (BEAKER) (test 28.8 pg 27.0-33.0 obdh=093) MEAN CORPUSCULAR HEMOGLOBIN CONC (BEAKER) (test 33.0 GM/DL 32.0-36.0 xxud=095) RED CELL DISTRIBUTION WIDTH (BEAKER) (test 13.9 % 12.0-15.0 wlel=652) PLATELET COUNT (BEAKER) (test lljz=808) 313 K/CU MM 150-430 MEAN PLATELET VOLUME (BEAKER) (test swsi=510) 8.6 fL 6.5-10.5 NUCLEATED RED BLOOD CELLS (BEAKER) (test 0 /100 WBC 0-0 nnit=681) NEUTROPHILS RELATIVE PERCENT (BEAKER) (test 60 % hsvq=431) LYMPHOCYTES RELATIVE PERCENT (BEAKER) (test 29 % nldm=379) MONOCYTES RELATIVE PERCENT (BEAKER) (test 7 % jgvc=386) EOSINOPHILS RELATIVE PERCENT (BEAKER) (test 3 % kukn=770) BASOPHILS RELATIVE PERCENT (BEAKER) (test 1 % vznr=626) NEUTROPHILS ABSOLUTE COUNT (BEAKER) (test 7.40 K/ L 1.80-8.00 yasf=674) LYMPHOCYTES ABSOLUTE COUNT (BEAKER) (test 3.60 K/ L 1.48-4.50 hplg=525) MONOCYTES ABSOLUTE COUNT (BEAKER) (test 0.80 K/ L 0.00-1.30 qevc=399) EOSINOPHILS ABSOLUTE COUNT (BEAKER) (test 0.40 K/ L 0.00-0.50 vero=907) BASOPHILS ABSOLUTE COUNT (BEAKER) (test 0.20 K/ L 0.00-0.20 gwmu=058) POCT-GLUCOSE [id number] 19:02:00 Test Item Value Reference Range Comments POC-GLUCOSE METER (BEAKER) 367 mg/dL 70-110 TESTED AT [address] (test vbae=0755) [facility] [address] [address], SPINE, CERVICAL, WO [id number] 18:25:00Reason for exam:->NECK PAINWhat is the patient's [...] normal cervical lordosis. Signed : Nba Mittal MDRrafyort Verified Date/Time: 01/15/2017 18:25:26 Reading Location: [address] Reading Room Electronically signed by: NBA MITTAL M.D.on 01/15/2017 06:25 PMCT, BRAIN, WITHOUT [id number] 18:14:00Reason for exam:->NECK PAINWhat is the patient's [...] Nba Mittal Verified Date/Time: 18:14:13 Reading Location: [address] Reading Room XR KNEE RIGHT 3 [id number] 22:22:15EXAM: Portable right knee series, 3 viewsLocation: [id number]: Fell on right knee and twisted right kneeCOMPARISON: None.DISCUSSION: Frontal, oblique, and crosstable lateral views of the right kneeare submitted. No fracture, dislocation, lytic or blastic lesions areidentified. Joint spaces appear well preserved. No joint effusion is seen.IMPRESSION:No acute bony abnormalities.XR ANKLE RIGHT COMPLETE 3 [id number] 22:21:22EXAM: Right ankle series, 3 viewsLocation: [id number]: Fell, twisted right ankleCOMPARISON: None.DISCUSSION: Frontal, oblique, and lateral views of the right ankle aresubmitted. There is a questionable hairline fracture of the distal fibula, onlyseen on the oblique view near the ankle mortise. No other evidence of fractureis seen.IMPRESSION: Questionable hairline fracture of the distal fibula.RAPID DRUG SCREEN, [id number] 23:10:00 Test Item Value Reference Range Comments BARBITURATE URINE (BEAKER) (test rztk=250) Negative Negative BENZODIAZEPINE SCREEN URINE (BEAKER) (test Negative Negative zzsv=948) COCAINE (METAB.) SCREEN (BEAKER) (test bgaw=4697) Negative Negative METHADONE SCREEN (BEAKER) (test qpvi=5979) Negative Negative OPIATE SCREEN URINE (BEAKER) (test pxwn=757) Positive Negative CANNABINOID SCREEN URINE (BEAKER) (test idrq=831) Negative Negative AMPH/METHAMPH SCREEN (BEAKER) (test yodc=8842) Negative Negative PHENCYCLIDINE SCREEN URINE (BEAKER) (test efoa=784) Negative Negative DRUG CUTOFF CONC.Cocaine 300 ng/mL Cannabinoid 50 ng/mLBenzodiazepine 200 ng/mLBarbiturate 200 ng/ mLPhencyclidine 25 ng/mLOpiate 300 ng/mLMethadone 300 ng/mLAmphetamine/ 1000 ng/mL MethamphetamineThis assay provides an unconfirmed qualitative test result for the clinical management of patients in emergency situations. Chain of custody not maintained. Some oveb-wmc-zddzfzq medications, as well as adulterants, may cause inaccurate results. Clinical correlation should be applied. A more comprehensivedrug screen or confirmation of a detected drug may be performed upon request.URINALYSIS W/ [id number] 22:55:00 Test Item Value Reference Range Comments COLOR (BEAKER) (test hqsf=882) Yellow CLARITY (BEAKER) (test wlik=442) Clear SPECIFIC GRAVITY UA (BEAKER) (test vrig=404) 1.025 1.001-1.035 PH UA (BEAKER) (test muro=671) 6.0 5.0-8.0 PROTEIN UA (BEAKER) (test myzp=345) Negative Negative GLUCOSE UA (BEAKER) (test rdql=985) Negative Negative KETONES UA (BEAKER) (test qipd=767) Negative Negative BILIRUBIN UA (BEAKER) (test tsfc=372) Negative Negative BLOOD UA (BEAKER) (test ccfy=804) Negative Negative NITRITE UA (BEAKER) (test lalb=550) Negative Negative LEUKOCYTE ESTERASE UA (BEAKER) (test cgzz=639) Negative Negative UROBILINOGEN UA (BEAKER) (test iffy=055) 0.2 mg/dL 0.2-1.0 BACTERIA (BEAKER) (test prsp=720) Occasional MUCUS (BEAKER) (test nrqu=5013) Many RBC UA-MANUAL (BEAKER) (test cuqj=8753) <5 /HPF WBC UA-MANUAL (BEAKER) (test wlyc=8109) <5 /HPF SQUAMOUS EPITHELIAL MANUAL (BEAKER) (test <5 /HPF qutc=6315) SOURCE(BEAKER) (test kgcn=3579) XR SHOULDER LEFT 3 [id number] 09:00:14EXAMINATION: XR SHOULDER LEFT 3 VIEWS.LOCATION: D4.HISTORY: shoulder pain while carrying heavy load.COMPARISON: Left shoulder x-ray 04/16/2015.FINDINGS/IMPRESSION:Three views of left shoulder demonstrates acute osseous abnormality. Nodislocation. Left clavicle appears intact. Visualized left lung parenchymaappears unremarkable.
[2018-03-10 20:09] LABS: Urine Blood NEGATIVE (NEG); Urine Glucose NEGATIVE (NEG); Urine Protein NEGATIVE (NEG); Urine pH 5.5 (5.0-7.0)
[2018-03-10] MEDS ORDERED: MORPHINE 4 MG/ML SYR ONE (20:29)
[2018-03-10] MEDS ORDERED: ONDANSETRON 4 MG/2 ML VIAL ONE (20:29)
[2018-03-10] MEDS ORDERED: NA CHLORIDE 0.9% 1,000 ML ONE (20:29)
[2018-03-10 20:35] LABS: Absolute Lymphocytes (CBC) 2.8 K/uL (0.7-4.9); Absolute Monocytes 0.6 K/uL (0.1-1.3); Absolute Neutrophil 6.3 K/uL (1.8-8.0); Basophils % 0.7 % (0-1.3); Eosinophils % 5.5 % (0-4.4); Hematocrit 39.3 % (39.6-49.0); Lymphocytes % 27.2 % (15.3-44.8); MCH 28.1 pg (27.0-35.0); MCV 82.8 fL (80-100); Monocytes % 5.3 % (3.3-12.3); RBC Red Blood Cell Count 4.74 M/uL (4.33-5.43)
[2018-03-10 20:36] LABS: Urine RBC <5 /HPF (NONE SEEN)
[2018-03-10 20:37] LABS: Urine Bacteria <20 /HPF (NONE SEEN); Urine Culture Reflex Order NOT NEEDED
[2018-03-10 20:56] LABS: AST/SGOT 7 U/L (15-37); BUN Blood Urea Nitrogen 13 mg/dL (7-18); Bicarbonate 26 mmol/L (21-32); Glucose Level 101 mg/dL (74-106); Potassium 3.6 mmol/L (3.5-5.1); Sodium Level 138 mmol/L (136-145)
[2018-03-10 20:57] LABS: ALT/SGPT 21 U/L (12-78); Albumin 3.9 g/dL (3.4-5.0); Alkaline Phosphatase 137 U/L (45-117); Bilirubin Direct 0.1 mg/dL (0-0.2); Bilirubin Total 0.2 mg/dL (0.2-1.0); Lipase 142 U/L (73-393); Protein, Total 8.6 g/dL (6.4-8.2)
--- NOTE | 2018-03-10 21:02 | RAD REPORT ---
EXAM DESCRIPTION: US - Abdomen Exam Limited - 03/10/2018 8:53 pm CLINICAL HISTORY: RUQ abdomen pain COMPARISON: Abdomen Exam Limited dated 08/31/2017 FINDINGS: The gallbladder demonstrates multiple shadowing gallstones. No pericholecystic fluid or ga llbladder wall thickening. The common bile duct is mildly dilated measuring 10 mm. The liver demonstrates no findings of intrahepatic biliary dilatation. IMPRESSION: Cholelithiasis. Mild dilatation of the common bile duct suggests possible choledocholithiasis. MRCP followup would be advised for further assessment.
--- NOTE | 2018-03-10 21:44 | RAD REPORT ---
EXAM DESCRIPTION: CT - Stone Protocol - 03/10/2018 9:33 pm CLINICAL HISTORY: Flank pain. FLANK PAIN COMPARISON: Stone Protocol dated 08/31/2017 TECHNIQUE: Axial images were obtained without oral or IV contrast. Lack of contrast limits solid org an and vascular assessment. The vydje-ji-tldw spans the entirety of the system partially obscuring uppermost abdomen and lung bases. Coronal reformatted images were obtained and reviewed. All CT scans are performed using dose optimization technique as appropriate and may include automated exposure control or mA/KV adjustment according to patient size. FINDINGS: The lower lung cadet are clear. Imaged portions of the liver and spleen show no suspicious findings on non-contrast imaging. The panc reas and adrenal glands are normal. No pathologic lymphadenopathy in the abdomen or pelvis. No urinary tract stones or obstructive uropathy. No bowel obstruction, free air, free fluid or abscess. Normal appendix noted. No significant bony abnormality. IMPRESSION: No urinary tract stones or obstructive uropathy.
[2018-03-10] MEDS ORDERED: MAGNE/ALUM HYDROXD 30 ML UCUP ONE (22:45)
[2018-03-10] MEDS ORDERED: LIDOCAINE VISCOUS 2% SOLN 15 ML UDC ONE (22:45)
[2018-03-10] MEDS ORDERED: DICYCLOMINE HCL 10 MG CAP ONE (22:45)
--- NOTE | 2018-03-10 22:52 | EDPHYS ---
Physician Documentation [facility] Name: Adria Guallpa Jr Age: 38 yrs Sex: Male : 1980 Arrival Date: 03/10/2018 Time: 19:35 Bed 19 Private MD: ED Physician Osito Benjamin HPI: 03/10 20:05 This 38 yrs old Male presents to ER via Ambulatory with complaints of Flank cp Pain. 20:05 The patient complains of pain in the right flank. The pain radiates to the right mid cp back. Onset: The symptoms/episode began/occurred this morning. 20:05 Associated signs and symptoms: Pertinent positives: nausea, burning with urination, cp Pertinent negatives: diarrhea, fever, hematuria, pain radiating to the lower extremities, vomiting. 20:05 Severity of pain: in the emergency department the pain is actually worse. cp Historical: - Allergies: 19:43 Demerol; ak1 19:43 Flexeril; ak1 19:43 Ibuprofen; ak1 19:43 Toradol; ak1 - Home Meds: 19:43 gabapentin 300 mg Oral cap 1 cap twice a day [Active]; metformin 500 mg Oral tab 1 tab ak1 2 times per day [Active]; aspirin 81 mg Oral chew [Active]; - PMHx: 19:43 Chronic pain; GALLSTONES; Myocardial infarction; Diabetes - NIDDM; ak1 - PSHx: 19:43 right eye sx; ak1 - Immunization history:: Adult Immunizations unknown. - Social history:: Smoking status: Patient uses tobacco products, smokes two packs cigarettes per day. - Ebola Screening: : No symptoms or risks identified at this time. ROS: 20:15 Constitutional: Negative for body aches, chills, fever, poor PO intake. cp 20:15 Eyes: Negative for injury, pain, redness, and discharge. cp 20:15 ENT: Negative for drainage from ear(s), ear pain, sore throat, difficulty swallowing, difficulty handling secretions. 20:15 Cardiovascular: Negative for chest pain, edema, palpitations. 20:15 Respiratory: Negative for cough, shortness of breath, wheezing. 20:15 Abdomen/GI: Positive for abdominal pain, nausea, Negative for vomiting, diarrhea, constipation, anorexia, dysphagia, black/tarry stool, rectal bleeding. 20:15 Back: Positive for flank pain, on the right, Negative for injury or acute deformity, decreased range of motion. 20:15 : Positive for burning with urination, Negative for hematuria, penile pain, testicular pain 20:15 MS/extremity: Negative for injury or acute deformity, decreased range of motion, paresthesias. 20:15 Skin: Negative for cellulitis, rash. 20:15 Neuro: Negative for altered mental status, dizziness, headache, weakness. 20:15 All other systems are negative. Exam: 20:20 Constitutional: The patient appears in no acute distress, alert, awake, cp non-diaphoretic, non-toxic, well developed, well nourished, uncomfortable. 20:20 Head/Face: Normocephalic, atraumatic. Eyes: Pupils equal round and reactive to light, cp extra-ocular motions intact. Lids and lashes normal. Conjunctiva and sclera are non-icteric and not injected. Cornea within normal limits. Periorbital areas with no swelling, redness, or edema. ENT: Nares patent. No nasal discharge, no septal abnormalities noted. Tympanic membranes are normal and external auditory canals are clear. Oropharynx with no redness, swelling, or masses, exudates, or evidence of obstruction, uvula midline. Mucous membranes moist. Chest/axilla: Normal chest wall appearance and motion. Nontender with no deformity. No lesions are appreciated. 20:20 Cardiovascular: Rate: normal, Rhythm: regular, Heart sounds: murmur, not appreciated, Edema: is not appreciated, JVD: is not appreciated. 20:20 Respiratory: the patient does not display signs of respiratory distress, Respirations: normal, no use of accessory muscles, no retractions, no splinting, no tachypnea, labored breathing, is not present, Breath sounds: are clear throughout, no decreased breath sounds, no stridor, no wheezing. 20:20 Abdomen/GI: Inspection: abdomen appears normal, Bowel sounds: active, all quadrants, Palpation: soft, in all quadrants, moderate abdominal tenderness, in the anterior aspect of right lateral abdomen, posterior aspect of right lateral abdomen and right upper quadrant, rebound tenderness, is not appreciated, voluntary guarding, is elicited in the anterior aspect of right lateral abdomen, posterior aspect of right lateral abdomen and right upper quadrant. 20:20 Skin: cellulitis, is not appreciated, no rash present. 20:20 Neuro: Orientation: to person, place \T\ time. Mentation: is normal, Cerebellar function: is grossly normal, Motor: moves all fours, strength is normal, Sensation: is normal. Vital Signs: 19:40 BP 123 / 77; Pulse 73; Resp 18; Temp 97.6(O); Pulse Ox 100% on R/A; Weight 96.16 kg ak1 (R); Height 5 ft. 10 in. (177.80 cm) (R); Pain 8/10; 21:26 BP 109 / 77; Pulse 72; Resp 16; Temp 98; Pulse Ox 100% on R/A; ak1 22:44 BP 133 / 94; Pulse 80; Resp 16; Temp 98.1; Pulse Ox 98% on R/A; ak1 19:40 Body Mass Index 30.42 (96.16 kg, 177.80 cm) ak1 MDM: 19:39 Patient medically screened. cp 22:45 Data reviewed: vital signs, nurses notes, lab test result(s), radiologic studies, CT cp scan, ultrasound. 22:45 Differential diagnosis: nephrolithiasis, pyelonephritis, UTI, diverticulitis, cp pancreatitis, cholecystitis. 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 Response to treatment: the patient's symptoms have markedly improved after treatment, and as a result, I will discharge patient. ED course: VSS. Labs reviewed. Results of radiology studies discussed with patient and need for GI f/u. Will discharge to home for continued monitoring. 03/10 20:00 Order name: Urine Dipstick--Ancillary (enter results); Complete Time: 20:43 mw2 03/10 20:02 Order name: Urine Microscopic Only cp 03/10 20:02 Order name: Basic Metabolic Panel; Complete Time: 21:46 cp 03/10 20:02 Order name: CBC with Diff; Complete Time: 20:43 cp 03/10 22:08 Interpretation: Normal except: HGB 13.3; HCT 39.3; MPV 7.0; EOSINOPHIL % 5.5; EOSA 0.6. cp 03/10 20:02 Order name: Creatinine for Radiology; Complete Time: 21:46 cp 03/10 20:02 Order name: Hepatic Function; Complete Time: 21:46 cp 03/10 21:46 Interpretation: Normal except: AST 7; ALK 137; TP 8.6; GLOB 4.7; A/G 0.8. cp 03/10 20:02 Order name: US Abdomen Limited; Complete Time: 21:46 cp 03/10 20:02 Order name: Lipase; Complete Time: 21:46 cp 03/10 20:02 Order name: Urine Microscopic Only; Complete Time: 20:43 EDMS 03/10 20:51 Order name: CT Stone Protocol; Complete Time: 21:46 cp 03/10 20:02 Order name: IV Saline Lock; Complete Time: 20:29 cp 03/10 20:02 Order name: Labs collected and sent; Complete Time: 20:29 cp Administered Medications: 20:28 Drug: Zofran 4 mg Route: IVP; Site: right antecubital; ak1 21:54 Follow up: Response: No adverse reaction ak1 20:28 Drug: morphine 2 mg Route: IVP; Site: right antecubital; ak1 21:54 Follow up: Response: No adverse reaction; Pain is decreased ak1 20:29 Drug: NS 0.9% 1000 ml Route: IV; Rate: 1 bolus; Site: right antecubital; ak1 21:53 Follow up: IV Status: Completed infusion ak1 22:44 Drug: Bentyl 20 mg Route: PO; ak1 22:55 Follow up: Response: No adverse reaction ak1 22:44 Drug: GI Cocktail without - (Maalox Suspension 30 ml, Lidocaine Liquid 2 % 15 ak1 ml) Route: PO; 22:53 Follow up: Response: No adverse reaction ak1 22:44 Drug: morphine 2 mg Route: IVP; Site: right antecubital; ak1 22:55 Follow up: Response: No adverse reaction ak1 Disposition: 03/11 04:11 Co-signature as Attending Physician, Osito Benjamin MD. pkl Disposition: 03/10/18 22:48 Discharged to Home. Impression: Cholelithiasis. - Condition is Stable. - Discharge Instructions: Biliary Colic, Adult, Cholelithiasis. - Prescriptions for Bentyl 20 mg Oral Tablet - take 2 tablet by ORAL route every 6 hours As needed; 40 tablet. Zofran 4 mg Oral Tablet - take 1 tablet by ORAL route every 12 hours As needed; 20 tablet. Cipro 500 mg Oral Tablet - take 1 tablet by ORAL route every 12 hours for 7 days; 14 tablet. Tramadol 50 mg Oral Tablet - take 1 tablet by ORAL route every 8 hours as needed; 15 tablet. - Medication Reconciliation Form, Thank You Letter, Antibiotic Education, Prescription Opioid Use form. - Follow up: Alfredo Santos MD; When: 2 - 3 days; Reason: Recheck today's complaints. - Problem is new. - Symptoms have improved. Signatures: Dispatcher [employer] EDMS Osito Benjamin MD MD pkl Krenek, Amber, RN RN ak1 Jin Virk PA PA cp Corrections: (The following items were deleted from the chart) 03/10 22:08 20:44 Normal except: HGB 13.3; HCT 39.3; MPV 7.0; EOSINOPHIL % 5.5. cp cp 23:16 22:48 03/10/2018 22:48 Discharged to Home. Impression: Cholelithiasis. Condition is ak1 Stable. Forms are Medication Reconciliation Form, Thank You Letter, Antibiotic Education, Prescription Opioid Use. Follow up: Alfredo Santos; When: 2 - 3 days; Reason: Recheck today's complaints. Problem is new. Symptoms have improved. cp
--- NOTE | 2018-03-10 22:52 | ER ---
Nurse's Notes [facility] Name: Adria Guallpa Jr Age: 38 yrs Sex: Male : 1980 Arrival Date: 03/10/2018 Time: 19:35 Bed 19 Private MD: Diagnosis: Cholelithiasis Presentation: 03/10 19:41 Presenting complaint: Patient states: right flank pain since this morning with nausea. ak1 pt c/o burning with urination. Transition of care: patient was not received from another setting of care. Onset of symptoms was March 10, 2018. Risk Assessment: Do you want to hurt yourself or someone else? Patient reports no desire to harm self or others. Initial Sepsis Screen: Does the patient meet any 2 criteria? No. Patient's initial sepsis screen is negative. Does the patient have a suspected source of infection? No. Patient's initial sepsis screen is negative. Care prior to arrival: None. 19:41 Method Of Arrival: Ambulatory ak1 19:41 Acuity: DAVE 3 ak1 Triage Assessment: 19:43 General: Appears in no apparent distress. Behavior is calm, cooperative. Pain: ak1 Complains of pain in right flank. EENT: No signs and/or symptoms were reported regarding the EENT system. Neuro: No deficits noted. Cardiovascular: No deficits noted. Respiratory: No deficits noted. GI: Reports nausea. : Reports burning with urination, pain in right flank(s). Derm: No signs and/or symptoms reported regarding the dermatologic system. Musculoskeletal: No signs and/or symptoms reported regarding the musculoskeletal system. Historical: - Allergies: 19:43 Demerol; ak1 19:43 Flexeril; ak1 19:43 Ibuprofen; ak1 19:43 Toradol; ak1 - Home Meds: 19:43 gabapentin 300 mg Oral cap 1 cap twice a day [Active]; metformin 500 mg Oral tab 1 tab ak1 2 times per day [Active]; aspirin 81 mg Oral chew [Active]; - PMHx: 19:43 Chronic pain; GALLSTONES; Myocardial infarction; Diabetes - NIDDM; ak1 - PSHx: 19:43 right eye sx; ak1 - Immunization history:: Adult Immunizations unknown. - Social history:: Smoking status: Patient uses tobacco products, smokes two packs cigarettes per day. - Ebola Screening: : No symptoms or risks identified at this time. Screenin:44 Abuse screen: Denies threats or abuse. Denies injuries from another. Nutritional ak1 screening: No deficits noted. Tuberculosis screening: No symptoms or risk factors identified. Fall Risk None identified. Assessment: 19:45 Reassessment: Patient appears in no apparent distress at this time. No changes from ak1 previously documented assessment. Patient and/or family updated on plan of care and expected duration. Pain level reassessed. Patient is alert, oriented x 3, equal unlabored respirations, skin warm/dry/pink. see triage assessment. 21:26 Reassessment: Patient appears in no apparent distress at this time. No changes from ak1 previously documented assessment. Patient and/or family updated on plan of care and expected duration. Pain level reassessed. Patient is alert, oriented x 3, equal unlabored respirations, skin warm/dry/pink. pt to CT. 21:51 Reassessment: Patient appears in no apparent distress at this time. No changes from ak1 previously documented assessment. Patient and/or family updated on plan of care and expected duration. Pain level reassessed. Patient is alert, oriented x 3, equal unlabored respirations, skin warm/dry/pink. Vital Signs: 19:40 BP 123 / 77; Pulse 73; Resp 18; Temp 97.6(O); Pulse Ox 100% on R/A; Weight 96.16 kg ak1 (R); Height 5 ft. 10 in. (177.80 cm) (R); Pain 8/10; 21:26 BP 109 / 77; Pulse 72; Resp 16; Temp 98; Pulse Ox 100% on R/A; ak1 22:44 BP 133 / 94; Pulse 80; Resp 16; Temp 98.1; Pulse Ox 98% on R/A; ak1 19:40 Body Mass Index 30.42 (96.16 kg, 177.80 cm) ak1 ED Course: 19:35 Patient arrived in ED. es 19:38 Jin Virk PA is PHCP. cp 19:38 Osito Benjamin MD is Attending Physician. cp 19:40 Amando Luong, RN is Primary Nurse. ak1 19:41 Triage completed. ak1 19:43 Arm band placed on Patient placed in an exam room, on a stretcher, on pulse oximetry, ak1 Patient notified of wait time. 19:44 Patient has correct armband on for positive identification. Placed in gown. Bed in low ak1 position. Call light in reach. Side rails up X 1. Pulse ox on. NIBP on. 20:00 Urine collected: clean catch specimen, clear, amando colored, Amount Voided: 60mL. jp3 20:15 Missed attempt(s): 20 gauge in right forearm. Bleeding controlled, band aid applied, jp3 catheter tip intact. 20:20 Initial lab(s) drawn, by me, sent to lab. Inserted saline lock: 22 gauge in right jp3 antecubital area, using aseptic technique. Blood collected. 20:29 Urine Microscopic Only Sent. jp3 20:29 Basic Metabolic Panel Sent. jp3 20:29 CBC with Diff Sent. jp3 20:29 Creatinine for Radiology Sent. jp3 20:29 Hepatic Function Sent. jp3 20:29 Lipase Sent. jp3 20:29 Urine Microscopic Only Sent. jp3 20:53 Ultrasound completed. Patient tolerated well. sg3 20:53 US Abdomen Limited In Process Unspecified. EDMS 21:33 CT Stone Protocol In Process Unspecified. EDMS 22:47 Alfredo Santos MD is Referral Physician. cp 23:15 No provider procedures requiring assistance completed. IV discontinued, intact, ak1 bleeding controlled, No redness/swelling at site. Pressure dressing applied. Administered Medications: 20:28 Drug: Zofran 4 mg Route: IVP; Site: right antecubital; ak1 21:54 Follow up: Response: No adverse reaction ak1 20:28 Drug: morphine 2 mg Route: IVP; Site: right antecubital; ak1 21:54 Follow up: Response: No adverse reaction; Pain is decreased ak1 20:29 Drug: NS 0.9% 1000 ml Route: IV; Rate: 1 bolus; Site: right antecubital; ak1 21:53 Follow up: IV Status: Completed infusion ak1 22:44 Drug: Bentyl 20 mg Route: PO; ak1 22:55 Follow up: Response: No adverse reaction ak1 22:44 Drug: GI Cocktail without - (Maalox Suspension 30 ml, Lidocaine Liquid 2 % 15 ak1 ml) Route: PO; 22:53 Follow up: Response: No adverse reaction ak1 22:44 Drug: morphine 2 mg Route: IVP; Site: right antecubital; ak1 22:55 Follow up: Response: No adverse reaction ak1 Outcome: 22:48 Discharge ordered by . marcello 23:15 Discharged to home ambulatory, with family. ak1 23:15 Condition: good 23:15 Discharge instructions given to patient, family, Instructed on discharge instructions, follow up and referral plans. no drinking with medication, no driving heavy equipment, medication usage, Demonstrated understanding of instructions, follow-up care, medications, Prescriptions given X 4. 23:16 Patient left the ED. ak1 Signatures: Dispatcher [employer] Apurva Galicia Amber RN RN ak1 Jin Virk PA PA cp Godinez, Sarah sg3 Yoan Wilkinson jp3
== END 2018-03-10 23:16 | disposition home or self-care (01) ==
LOC: ER 19:32
DX: K80.20 Calculus of gallbladder without cholecystitis without obstruction (principal); F17.210 Nicotine dependence, cigarettes, uncomplicated; E11.9 Type 2 diabetes mellitus without complications; I25.2 Old myocardial infarction; Z79.82 Long term (current) use of aspirin; Z88.5 Allergy status to narcotic agent; Z88.6 Allergy status to analgesic agent; Z88.8 Allergy status to other drugs, medicaments and biological substances
CPT/HCPCS: 36415; 74176; 76377; 76705; 80048; 80076; 81003; 81015; 83690; 85025; 96361; 96374; 96375; 99284; J2405; J7030

== ENCOUNTER 2020-08-12 22:03 | Emergency (ER) | payer OTHER, SELFPAY ==
--- OUTSIDE RECORDS SUMMARY | 2020-08-12 22:10 | XMS REPORT | Continuity of Care Document ---
:1980 Author Organization [facility] t Address [address] [place] [address] Care Team Providers Name Role Phone Sharpless Primary Care Physician Alex TY Attending Clinician Natalia MATHEW Attending Clinician Unavailable DR Nicol BETH Attending Clinician Unavailable DR HERBER Attending Clinician Unavailable Anju WAYNE Attending Clinician Unavailable DR TAHIR Attending Clinician Unavailable DR PHOEBE Attending Clinician Unavailable Barbara MONROE Attending Clinician Unavailable DR BEATRIZ Attending Clinician Unavailable LINSEY MCCRAY Attending Clinician Unavailable DR KIRIT Attending Clinician Unavailable KARIME VALDOVINOS Attending Clinician Unavailable DR GREG Attending Clinician Unavailable DR CASS Attending Clinician Unavailable Natalia MATHEW Admitting Clinician Unavailable DR Nicol BETH Admitting Clinician Unavailable DR HERBER Admitting Clinician Unavailable Anju WAYNE Admitting Clinician Unavailable DR TAHIR Admitting Clinician Unavailable DR PHOEBE Admitting Clinician Unavailable DR BEATRIZ Admitting Clinician Unavailable DR KIRIT Admitting Clinician Unavailable DR GREG Admitting Clinician Unavailable DR CASS Admitting Clinician Unavailable Payers Payer Name Policy Type Policy Number Effective Date Expiration Date S ource Problems Condition Condition Condition Status Onset Resolution Last Treating Co mments Source Name Details Category Date Date Treatment Clinician Date Chest pain Chest pain Disease Active 2016- [place] [facility] 00:[facility]: st 00 Allergies, Adverse Reactions, Alerts Allergy Allergy Status Severity Reaction(s) Onset Inactive Treating Comm ents Source Name Type Date Date Clinician [place] DA Active [place] 2019-0 [facility] 9[facility]16 [place] 00:[place]: d [facility] ibuprofe [place] 2019-[place] [facility] n 9-16 [place] 00:[place]: d [facility] cycloben DA Active [place] 2019-0 [facility] zaprine 9-16 [place] 00:00: d [facility] dicyclom DA Active [place] 2019-0 [facility] ine 9-16 [place] 00:00: d [facility] ibuprofe DA Active [place] 2019-0 [facility] n 5-24 [place] 00:00: [place] 00 [facility] cycloben DA Active [place] 2019-0 [facility] zaprine 5-24 Clear 00:00: [place] 00 [facility] dicyclom DA Active [place] 2019-0 [facility] ine 5-24 Clear 00:00: [place] 00 [facility] ketorola DA Active [place] 2019-0 [facility] c 5-24 Clear 00:00: [place] 00 [facility] ibuprofe DA Active [place] 2019-0 [facility] n 2-02 Clear 00:00: [place] 00 [facility] cycloben DA Active [place] 2019-0 [facility] zaprine 2-02 Clear 00:00: [place] 00 [facility] ketorola DA Active [place] 2019-0 [facility] c 2-02 Clear 00:00: [place] 00 [facility] ketorola DA Active [place] 2018-0 [facility] c 6-11 Clear 00:00: [place] 00 [facility] Ketorola Drug Active Itching 2018-[address] [facility] All[facility] 6-07 [facility] 00:[facility]: Medical 00 [place] dicyclom DA Active [place] 2018-0 [facility] ine 5-21 Clear 00:00: [place] 00 [facility] ibuprofe DA Active [place] [facility] n 4-12 Clear 00:00: [place] 00 [facility] cycloben DA Active [place] [facility] zaprine 4-12 Clear 00:00: [place] 00 [facility] Nsaids Propensi Active [facility] (Non-Arpan ty to 01-19 [facility] - roidal adverse 00:00: Medical Anti-Inf reaction 00 [place] lammator s y Drug) [place] Propensi Active [facility] [place] ty to Intolerance 01-01 Metho di adverse 00:00: st reaction 00 s to drug Cycloben Propensi Active Itching [facility] zaprine [facility] to 6- [facility] - Hcl adverse 00:00: Medical reaction 00 [place] s Ibuprofe Propensi Active Other (See Stomach C HI St n ty to Comments) 6 upset [facility] - adverse 00:00: Medical reaction 00 [place] s Cycloben Propensi Active Hives [facility] zaprine ty to 4-20 [facility] - adverse 00:00: Medical reaction 00 [place] s Cycloben Propensi Active H[place] zaprine ty to 4-20 [facility] adverse 00:00: st reaction 00 s to drug Ibuprofe Propensi Active Nausea And 2016- [place] ty to Vomiting 05-20 [facility] adverse 00:00: st reaction 00 s to drug Social History Social Habit Start Date Stop Date Quantity Comments Source History of tobacco Cigarette Smoker [place] use [facility] Tobacco use and 2017-10-01 2017-10-01 Never used [place] exposure 00:00:00 00:00:00 [facility] Alcohol intake 2017-10-01 2017-10-01 Current [place] 00:00:00 00:00:00 non-drinker of [facility] alcohol (finding) Cigarettes smoked 2017-10-01 2017-10-01 [place] current (pack per 00:00:00 00:00:[address] day) - Reported Cigarette 2017-10-01 2017-10-01 [place] pack-years 00:00:00 00:00:00 [facility] Sex Ass[birth year] At [birth year] [place] 00:00:00 00:00:00 [facility] Smoking Status Start Date Stop Date Source Current every day smoker 2017-10-01 00:00:00 [facility] a[facility]mendir[facility] Medications Ordered Filled Start Stop Current Ordering Indication Dosage Frequency Signature Comments Components Source Medication Medication Date Date Medication? Clinician (SIG) Name Name metFORMIN 2017- Yes 500mg Q.5D Take [address] (GLUCOPHAGE 6-10 mg by [facility] ) 500 mg 18:02: mouth 2 st tablet 17 (two) times a day with meals. aspirin 81 2018-0 Yes 81mg Q.5D Chew 81 mg [place] mg chewable 6-10 2 (two) Metho di tablet 18:02: times a st 17 day. gabapentin 2018- Yes 300mg Q.5D Take 300 [place] (NEURONTIN) 6-10 mg by [facility] 300 mg 18:02: mouth 2 st capsule 17 (two) times a day. metFORMIN 2017-0 Yes 500mg Take [address] [facility] (GLUCOPHAGE 6-07 mg by [facility] - ) 500 MG 08:08: mouth 2 Medica l tablet 05 (two) Center times daily with breakfast and dinner. gabapentin 2017- Yes 300mg Q.[id number] Take [address] (NEURONTIN) 6-07 [id number] mg by L ukes - 300 MG 08:08: 3D mouth 3 Medical capsule 05 (three) Center times daily. Procedures This patient has no known procedures. Plan of Care Planned Activity Planned Date Details Comments Source Future Scheduled 2020-11-22 INFLUENZA VACCINE [place] [facility] Test 00:00:00 [code = INFLUENZA VACCINE] Future Scheduled 2019-12-24 INFLUENZA VACCINE (#1) [facility] Test 00:00:00 [code = INFLUENZA Medical Ce nter VACCINE (#1)] Future Scheduled [address] [facility] - Test 00:00:00 (procedure) [code = Medical Center 22084142] Future Scheduled 1997 Hepatitis C screening [place] [facility] Test 00:00:00 (procedure) [code = 151773802] Future Scheduled 1995 COVID-19 VACCINE (1) [facility]dee ugoramez [facility] Test 00:00:00 [code = COVID-19 VACCINE (1)] Future Scheduled [address] [facility] - Test 00:00:00 0-64 YRS (1 of 1 - Medical C enter PPSV23) [code = PNEUMOCOCCAL VACCINE 0-64 YRS (1 of 1 - PPSV23)] Encounters Start End Encounter Admission Attending Care Care Encounter Source Date/Time Date/Time Type Type Clinicians Facility Department ID 2019-12-09 2019-12-09 Emergency E MHSE MHSE [id number] MH 08:36:00 08:36:00 [facility] 2019-07-23 2019-07-23 Telephone [facility] [id number] 00:00:00 00:00:00 [place] [id number] Clear [id number] [place] [id number] [facility] 014 ([facility]) 2019-07-21 2019-07-22 Emergency [facility] [id number] 22:49:31 00:20:00 [facility] [id number] Clear [id number] [place] [id number] [facility] 014 ([facility]) 2019-04-06 2019-04-06 Emergency E MHSE MHSE [id number] 18:36:00 18:36:00 [facility] 2019-03-17 2019-03-17 Emergency E MHSE MHSE [id number] MH 08:27:00 08:27:00 [facility] 2018-12-26 2018-12-26 Emergency E MHSE MHSE [id number] MH 09:24:00 09:24:00 [facility] 2018-09-16 2018-09-16 Emergency E MHSE MHSE [id number] MH 17:55:00 17:55:00 [facility] 2018-09-13 2018-09-13 Outpatient E MHBL CHARLA [id number] MHBL 06:15:00 06:15:00 2018-09-12 2018-09-12 Emergency E MHCY MHCY [id number] MHCY 23:48:00 23:48:00 2017-10-08 2017-10-08 Emergency E [facility] [id number] [place] 11:21:00 13:15:00 [facility] 2017-08-19 2017-08-19 Emergency E KIRIT ROCAEL [facility] [id number] [place] 15:33:00 18:45:00 [facility] 2017-08-11 2017-08-11 Emergency E HERBER, JEMMA [facility] 1000 [id number] [place] 11:55:00 13:29:00 Medica l Center 2017-04-27 2017-04-27 Emergency E ROSANA, [facility] [id number] [place] 08:54:00 10:01:00 [facility] [place] 2017-04-20 2017-04-20 Outpatient E TAHIR, [facility] TELE [id number] [place] 11:00:00 14:40:00 EBONY [facility] 2016-12-12 2016-12-12 Emergency E , [facility] [id number] [place] 20:40:00 21:38:00 [facility] Results Test Description Test Time Test Comments Results Result [facility] e Comments - CT ABD PELVIS 2020-06-13 W[facility] 1980 Sex: M Name: REZA MAJOR [facility] : 1980 Age/S: 40 / M [address] [place] [address] Bl Unit #: [id number] Loc: [place] [address] Phys: Jacinto Mullen MD Acct: [id number] Dis Date: Status: REG ER PHONE #: [phone] Exam Date: 06/13/2020238 FAX #: [phone] Reason: PAIN WITH TRAUMA EXAMS: CPT CODE: [id number] CT ABD PELVIS W/CONT 51256 STUDY: - CT CHEST W/CONTRAST, - CT ABD PELVIS W/CONT 06/13/2020 2:00 AM Ordering Physician: Jacinto Mullen MD Patient Name: REZA MAJOR MR: [id number] : 1980; Age: 40 years y/o Male Clinical Indication: Chest and abdominal pain related to trauma. Comparison: None TECHNIQUE: Multiple contiguous postcontrast transaxial CT images were obtained from the base of the neck through the symphysis pubis. Sagittal and coronal reformatted images were prepared. CT imaging performed at this location utilizes radiation dose optimization techniques which include one or more of the following: -Automated exposure control -Adjustment of the mA and/or kV according to patient size -Use of iterative reconstruction technique IV CONTRAST: [id number] Radiation Dose DLP: 1531.16 mGy-cm FINDINGS: CT CHEST WITH CONTRAST: LUNGS: Well inflated lungs associated with innumerable tiny groundglass nodules throughout both lungs best demonstrated in the upper lobes and lung apices. Mild bilateral basilar subsegmental atelectasis and scarring. Scattered subpleural bullae in both lung bases. Scattered indeterminate solid pulmonary nodules mainly peripherally in both lungs greatest in the upper lobes and lung apices ranging from 2-5 mm. No pleural effusion or pneumothorax. AIRWAY: Clear central tracheobronchial tree. PAGE 1 Signed Report (CONTINUED) Name: REZA MAJOR [facility] : 1980 Age/S: 40 / M [address] [place] [address] Blvd Unit #: [id number] Loc: [place] [address] Phys: Jacinto Mullen MD Acct: [id number] Dis Date: Status: REG ER PHONE #: [phone] Exam Date: 06/13/2020 0239 FAX #: [phone] Reason: PAIN WITH TRAUMA EXAMS: CPT CODE: [id number] CT ABD PELVIS W/CONT 84373 <Continued> HEART: Mild cardiomegaly associated with trace pericardial effusion and prominent pericardial fat. THORACIC AORTA: Normal caliber without aneurysm or dissection. PULMONARY ARTERIES: No evidence of central pulmonary embolus. MEDIASTINUM AND JOHNNA: Scattered small mediastinal and bilateral hilar lymph nodes without lymphadenopathy or mass. SOFT TISSUES: No suspicious soft tissue lesion or abnormality. OSSEOUS STRUCTURES: Mild to moderate thoracic spondylosis and facet arthrosis with mild loss of vertebral body height at several levels in the lower thoracic spine most consistent with degenerative change or mild old compression fractures with 10-20% loss of height at maximum. Otherwise, no acute fracture or dislocation in the chest. CT ABDOMEN WITH CONTRAST: BOWEL GAS: Nonobstructed bowel gas pattern with mild wall thickening in the transverse colon and left hemicolon most consistent with underdistention. APPENDIX: Normal appendix without inflammatory change. STOMACH: Under distended appropriately thick-walled. PERITONEUM AND MESENTERY: Free Air: No evidence of pneumoperitoneum. Free Fluid: No evidence of significant free fluid, loculated fluid, peripherally enhancing abscess, or hemorrhage. Mesenteric and peritoneal fat: Normal without focal lesion or inflammation. LYMPH NODES: Scattered subcentimeter central mesenteric and retroperitoneal lymph nodes without lymphadenopathy or mass. VASCULAR: Abdominal Aorta: Normal caliber abdominal aorta without aneurysm or dissection. IVC: Normal. PAGE 2 Signed Report (CONTINUED) Name: REZA MAJOR [facility] : 1980 Age/S: 40 / M [address] [place] [address] Blvd Unit #: [id number] Loc: [place] [address] Phys: Jacitno Mullen MD Acct: [id number] Dis Date: Status: REG ER PHONE #: [phone] Exam Date: 06/13/2020 0239 FAX #: [phone] Reason: PAIN WITH TRAUMA EXAMS: CPT CODE: [id number] CT ABD PELVIS W/CONT 86294 <Continued> ABDOMINAL ORGANS: Liver: Normal size liver with a small 8 mm calcified lesion or calcified granuloma. Gallbladder: Postoperative change of cholecystectomy. Biliary Tree: Mildly prominent to dilated intrahepatic and extrahepatic bile ducts likely physiological in nature status post cholecystectomy. Kidneys: Normal size and morphology without discrete lesion or hydronephrosis. Adrenal Glands: Normal size and morphology without discrete lesion. Pancreas: Normal size and morphology without discrete lesion. Spleen: Normal size and morphology without discrete lesion. PELVIC ORGANS: Urinary bladder: Normal nonenhanced appropriate for degree of distention. Reproductive organs: Normal prostate and seminal vesicles. SOFT TISSUES: No suspicious soft tissue lesion or abnormality. OSSEOUS STRUCTURES: No fracture, dislocation, or suspicious focal osseous lesion. IMPRESSION: No acute fracture, dislocation, or acute internal injury in the chest, abdomen, or pelvis. Mild to moderate thoracic spondylosis and facet arthrosis greatest in the lower lumbar spine associated with loss of vertebral body height ranging from 10-20% at multiple contiguous levels greatest anteriorly in the mid to lower thoracic spine most likely degenerative in nature although mild old compression fractures cannot entirely be excluded. PAGE 3 Signed Report (CONTINUED) Name: REZA MAJOR [facility] [place] : 1980 Age/S: 40 / M [address] [place] [address] Blvd Unit #: [id number] Loc: [place] [address] Phys: Jacinto Mullen MD Acct: [id number] Dis Date: Status: REG ER PHONE #: [phone] Exam Date: 06/13/2020 0239 FAX #: [phone] Reason: PAIN WITH TRAUMA EXAMS: CPT CODE: [id number] CT ABD PELVIS W/CONT 52924 <Continued> No definite acute thoracic spine fracture is appreciated. Follow-up MR could be obtained for confirmation if thoracic pain is present. Innumerable tiny groundglass nodules throughout both lungs greatest in the upper lobes and lung apices most likely an infectious or inflammatory etiology or possibly hypersensitivity pneumonitis. Additionally, several scattered more solid-appearing pulmonary nodules are seen ranging from 3-5 mm. Clinical correlation and short interval follow-up CT chest is recommended. Mild cardiomegaly associated with trace pericardial effusion and prominent pericardial fat. Cholecystectomy with mild central biliary ductal dilatation likely physiological in nature related to reservoir effect. Subcentimeter benign-appearing calcified hepatic lesion versus a calcified granuloma. SL: TPAINTER-H at 0318 Reported and signed by: Evangelista Foster M.D. CC: Jacinto Mullen MD Technologist:Danny Jackson RT(R)(CT) CTDI: DLP: Trnscb Date/Time: 06/13/2020 (317) [email or web address] Orig Print D/T: S: 06/13/2020 (320) PAGE 4 Signed Report - CT CHEST 2020-06-13 W/CONTRAST 03:18:[facility] 1980 Sex: M Name: REZA MAJOR : 1980 Age/S: 40 / M [address] [place] [address] Unit #: [id number] Loc: [place] [address] Phys: Jacinto Mullen MD Acct: [id number] Dis Date: Status: REG ER PHONE #: [phone] Exam Date: 06/13/2020238 FAX #: [phone] Reason: PAIN WITH TRAUMA EXAMS: CPT CODE: [id number] CT CHEST W/CONTRAST 04515 STUDY: - CT CHEST W/CONTRAST, - CT ABD PELVIS W/CONT 06/13/2020 2:00 AM Ordering Physician: Jacinto Mullen MD Patient Name: REZA MAJOR MR: [id number] : 1980; Age: 40 years y/o Male Clinical Indication: Chest and abdominal pain related to trauma. Comparison: None TECHNIQUE: Multiple contiguous postcontrast transaxial CT images were obtained from the base of the neck through the symphysis pubis. Sagittal and coronal reformatted images were prepared. CT imaging performed at this location utilizes radiation dose optimization techniques which include one or more of the following: -Automated exposure control -Adjustment of the mA and/or kV according to patient size -Use of iterative reconstruction technique IV CONTRAST: [id number] Radiation Dose DLP: 1531.16 mGy-cm FINDINGS: CT CHEST WITH CONTRAST: LUNGS: Well inflated lungs associated with innumerable tiny groundglass nodules throughout both lungs best demonstrated in the upper lobes and lung apices. Mild bilateral basilar subsegmental atelectasis and scarring. Scattered subpleural bullae in both lung bases. Scattered indeterminate solid pulmonary nodules mainly peripherally in both lungs greatest in the upper lobes and lung apices ranging from 2-5 mm. No pleural effusion or pneumothorax. AIRWAY: Clear central tracheobronchial tree. PAGE 1 Signed Report (CONTINUED) Name: REZA MAJOR : 1980 Age/S: 40 / M [address] [place] [address] Unit #: [id number] Loc: [place] [address] Phys: Jacinto Mullen MD Acct: [id number] Dis Date: Status: REG ER PHONE #: [phone] Exam Date: 06/13/2020238 FAX #: [phone] Reason: PAIN WITH TRAUMA EXAMS: CPT CODE: [id number] CT CHEST W/CONTRAST 42059 <Continued> HEART: Mild cardiomegaly associated with trace pericardial effusion and prominent pericardial fat. THORACIC AORTA: Normal caliber without aneurysm or dissection. PULMONARY ARTERIES: No evidence of central pulmonary embolus. MEDIASTINUM AND JOHNNA: Scattered small mediastinal and bilateral hilar lymph nodes without lymphadenopathy or mass. SOFT TISSUES: No suspicious soft tissue lesion or abnormality. OSSEOUS STRUCTURES: Mild to moderate thoracic spondylosis and facet arthrosis with mild loss of vertebral body height at several levels in the lower thoracic spine most consistent with degenerative change or mild old compression fractures with 10-20% loss of height at maximum. Otherwise, no acute fracture or dislocation in the chest. CT ABDOMEN WITH CONTRAST: BOWEL GAS: Nonobstructed bowel gas pattern with mild wall thickening in the transverse colon and left hemicolon most consistent with underdistention. APPENDIX: Normal appendix without inflammatory change. STOMACH: Under distended appropriately thick-walled. PERITONEUM AND MESENTERY: Free Air: No evidence of pneumoperitoneum. Free Fluid: No evidence of significant free fluid, loculated fluid, peripherally enhancing abscess, or hemorrhage. Mesenteric and peritoneal fat: Normal without focal lesion or inflammation. LYMPH NODES: Scattered subcentimeter central mesenteric and retroperitoneal lymph nodes without lymphadenopathy or mass. VASCULAR: Abdominal Aorta: Normal caliber abdominal aorta without aneurysm or dissection. IVC: Normal. PAGE 2 Signed Report (CONTINUED) Name: REZA MAJOR [facility] : 1980 Age/S: 40 / M [address] [place] [address] Blvd Unit #: [id number] Loc: [place] [address] Phys: Jacinto Mullen MD Acct: [id number] Dis Date: Status: REG ER PHONE #: [phone] Exam Date: 06/13/2020238 FAX #: [phone] Reason: PAIN WITH TRAUMA EXAMS: CPT CODE: [id number] CT CHEST W/CONTRAST 71813 <Continued> ABDOMINAL ORGANS: Liver: Normal size liver with a small 8 mm calcified lesion or calcified granuloma. Gallbladder: Postoperative change of cholecystectomy. Biliary Tree: Mildly prominent to dilated intrahepatic and extrahepatic bile ducts likely physiological in nature status post cholecystectomy. Kidneys: Normal size and morphology without discrete lesion or hydronephrosis. Adrenal Glands: Normal size and morphology without discrete lesion. Pancreas: Normal size and morphology without discrete lesion. Spleen: Normal size and morphology without discrete lesion. PELVIC ORGANS: Urinary bladder: Normal nonenhanced appropriate for degree of distention. Reproductive organs: Normal prostate and seminal vesicles. SOFT TISSUES: No suspicious soft tissue lesion or abnormality. OSSEOUS STRUCTURES: No fracture, dislocation, or suspicious focal osseous lesion. IMPRESSION: No acute fracture, dislocation, or acute internal injury in the chest, abdomen, or pelvis. Mild to moderate thoracic spondylosis and facet arthrosis greatest in the lower lumbar spine associated with loss of vertebral body height ranging from 10-20% at multiple contiguous levels greatest anteriorly in the mid to lower thoracic spine most likely degenerative in nature although mild old compression fractures cannot entirely be excluded. PAGE 3 Signed Report (CONTINUED) Name: REZA MAJOR [facility] : 1980 Age/S: 40 / M [address] [place] [address] Unit #: [id number] Loc: [place] [address] Phys: Jacinto Mullen MD Acct: [id number] Dis Date: Status: REG ER PHONE #: [phone] Exam Date: 06/13/2020 0239 FAX #: [phone] Reason: PAIN WITH TRAUMA EXAMS: CPT CODE: [id number] CT CHEST W/CONTRAST 33997 <Continued> No definite acute thoracic spine fracture is appreciated. Follow-up MR could be obtained for confirmation if thoracic pain is present. Innumerable tiny groundglass nodules throughout both lungs greatest in the upper lobes and lung apices most likely an infectious or inflammatory etiology or possibly hypersensitivity pneumonitis. Additionally, several scattered more solid-appearing pulmonary nodules are seen ranging from 3-5 mm. Clinical correlation and short interval follow-up CT chest is recommended. Mild cardiomegaly associated with trace pericardial effusion and prominent pericardial fat. Cholecystectomy with mild central biliary ductal dilatation likely physiological in nature related to reservoir effect. Subcentimeter benign-appearing calcified hepatic lesion versus a calcified granuloma. SL: [facility] 0318 Reported and signed by: Evangelista Foster M.D. CC: Jacinto Mullen MD Technologist:Danny Jackson, RT(R)(CT) CTDI: DLP: Trnscb Date/Time: 06/13/2020 (317) [email or web address] Orig Print D/T: S: 06/13/2020 (320) PAGE 4 Signed Report - CT CHEST 2020-06-13 W/CONTRAST 03:18:00 [facility] 1980 Sex: M Name: REZA MAJOR [facility] : 1980 Age/S: 40 / M [address] [place] [address] Bl Unit #: [id number] Loc: [place] [address] Phys: Jacnito Mullen MD Acct: [id number] Dis Date: Status: DEP ER PHONE #: [phone] Exam Date: 06/13/2020238 FAX #: [phone] Reason: PAIN WITH TRAUMA EXAMS: CPT CODE: [id number] CT CHEST W/CONTRAST 28007 STUDY: - CT CHEST W/CONTRAST, - CT ABD PELVIS W/CONT 06/13/2020 2:00 AM Ordering Physician: Jacinto Mullen MD Patient Name: REZA MAJOR MR: [id number] : 1980; Age: 40 years y/o Male Clinical Indication: Chest and abdominal pain related to trauma. Comparison: None TECHNIQUE: Multiple contiguous postcontrast transaxial CT images were obtained from the base of the neck through the symphysis pubis. Sagittal and coronal reformatted images were prepared. CT imaging performed at this location utilizes radiation dose optimization techniques which include one or more of the following: -Automated exposure control -Adjustment of the mA and/or kV according to patient size -Use of iterative reconstruction technique IV CONTRAST: [id number] Radiation Dose DLP: 1531.16 mGy-cm FINDINGS: CT CHEST WITH CONTRAST: LUNGS: Well inflated lungs associated with innumerable tiny groundglass nodules throughout both lungs best demonstrated in the upper lobes and lung apices. Mild bilateral basilar subsegmental atelectasis and scarring. Scattered subpleural bullae in both lung bases. Scattered indeterminate solid pulmonary nodules mainly peripherally in both lungs greatest in the upper lobes and lung apices ranging from 2-5 mm. No pleural effusion or pneumothorax. AIRWAY: Clear central tracheobronchial tree. PAGE 1 Signed Report (CONTINUED) Name: REZA MAJOR [facility] : 1980 Age/S: 40 / M [address] [place] [address] Unit #: [id number] Loc: [place] [address] Phys: Jacinto Mullen MD Acct: [id number] Dis Date: Status: DEP ER PHONE #: [phone] Exam Date: 06/13/2020238 FAX #: [phone] Reason: PAIN WITH TRAUMA EXAMS: CPT CODE: [id number] CT CHEST W/CONTRAST 32637 <Continued> HEART: Mild cardiomegaly associated with trace pericardial effusion and prominent pericardial fat. THORACIC AORTA: Normal caliber without aneurysm or dissection. PULMONARY ARTERIES: No evidence of central pulmonary embolus. MEDIASTINUM AND JOHNNA: Scattered small mediastinal and bilateral hilar lymph nodes without lymphadenopathy or mass. SOFT TISSUES: No suspicious soft tissue lesion or abnormality. OSSEOUS STRUCTURES: Mild to moderate thoracic spondylosis and facet arthrosis with mild loss of vertebral body height at several levels in the lower thoracic spine most consistent with degenerative change or mild old compression fractures with 10-20% loss of height at maximum. Otherwise, no acute fracture or dislocation in the chest. CT ABDOMEN WITH CONTRAST: BOWEL GAS: Nonobstructed bowel gas pattern with mild wall thickening in the transverse colon and left hemicolon most consistent with underdistention. APPENDIX: Normal appendix without inflammatory change. STOMACH: Under distended appropriately thick-walled. PERITONEUM AND MESENTERY: Free Air: No evidence of pneumoperitoneum. Free Fluid: No evidence of significant free fluid, loculated fluid, peripherally enhancing abscess, or hemorrhage. Mesenteric and peritoneal fat: Normal without focal lesion or inflammation. LYMPH NODES: Scattered subcentimeter central mesenteric and retroperitoneal lymph nodes without lymphadenopathy or mass. VASCULAR: Abdominal Aorta: Normal caliber abdominal aorta without aneurysm or dissection. IVC: Normal. PAGE 2 Signed Report (CONTINUED) Name: REZA MAJOR : 1980 Age/S: 40 / M [address] [place] [address] Unit #: [id number] Loc: [place] [address] Phys: Jacinto Mullen MD Acct: [id number] Dis Date: Status: DEP ER PHONE #: [phone] Exam Date: 06/13/2020238 FAX #: [phone] Reason: PAIN WITH TRAUMA EXAMS: CPT CODE: [id number] CT CHEST W/CONTRAST 72008 <Continued> ABDOMINAL ORGANS: Liver: Normal size liver with a small 8 mm calcified lesion or calcified granuloma. Gallbladder: Postoperative change of cholecystectomy. Biliary Tree: Mildly prominent to dilated intrahepatic and extrahepatic bile ducts likely physiological in nature status post cholecystectomy. Kidneys: Normal size and morphology without discrete lesion or hydronephrosis. Adrenal Glands: Normal size and morphology without discrete lesion. Pancreas: Normal size and morphology without discrete lesion. Spleen: Normal size and morphology without discrete lesion. PELVIC ORGANS: Urinary bladder: Normal nonenhanced appropriate for degree of distention. Reproductive organs: Normal prostate and seminal vesicles. SOFT TISSUES: No suspicious soft tissue lesion or abnormality. OSSEOUS STRUCTURES: No fracture, dislocation, or suspicious focal osseous lesion. IMPRESSION: No acute fracture, dislocation, or acute internal injury in the chest, abdomen, or pelvis. Mild to moderate thoracic spondylosis and facet arthrosis greatest in the lower lumbar spine associated with loss of vertebral body height ranging from 10-20% at multiple contiguous levels greatest anteriorly in the mid to lower thoracic spine most likely degenerative in nature although mild old compression fractures cannot entirely be excluded. PAGE 3 Signed Report (CONTINUED) Name: REZA MAJOR : 1980 Age/S: 40 / M [address] [place] [address] Unit #: [id number] Loc: [place] [address] Phys: Jacinto Mullen MD Acct: [id number] Dis Date: Status: DEP ER PHONE #: [phone] Exam Date: 06/13/2020238 FAX #: [phone] Reason: PAIN WITH TRAUMA EXAMS: CPT CODE: [id number] CT CHEST W/CONTRAST 03014 <Continued> No definite acute thoracic spine fracture is appreciated. Follow-up MR could be obtained for confirmation if thoracic pain is present. Innumerable tiny groundglass nodules throughout both lungs greatest in the upper lobes and lung apices most likely an infectious or inflammatory etiology or possibly hypersensitivity pneumonitis. Additionally, several scattered more solid-appearing pulmonary nodules are seen ranging from 3-5 mm. Clinical correlation and short interval follow-up CT chest is recommended. Mild cardiomegaly associated with trace pericardial effusion and prominent pericardial fat. Cholecystectomy with mild central biliary ductal dilatation likely physiological in nature related to reservoir effect. Subcentimeter benign-appearing calcified hepatic lesion versus a calcified granuloma. SL: TPAINTER-H at 0318 Reported and signed by: Evnagelista Foster M.D. CC: Jacinto Mullen MD Technologist:Danny Jackson RT(R)(CT) CTDI: DLP: Trnscb Date/Time: 06/13/2020 (317) [email or web address] Orig Print D/T: S: 06/13/2020 (320) PAGE 4 Signed Report - CT ABD PELVIS 2020-06-13 W/[facility]:18[facility] 1980 Sex: M Name: REZA MAJOR [facility] : 1980 Age/S: 40 / M [address] [place] [address] Blvd Unit #: [id number] Loc: [place] [address] Phys: Jacinto Mullen MD Acct: [id number] Dis Date: Status: DEP ER PHONE #: [phone] Exam Date: 06/13/2020238 FAX #: [phone] Reason: PAIN WITH TRAUMA EXAMS: CPT CODE: [id number] CT ABD PELVIS W/CONT 22158 STUDY: - CT CHEST W/CONTRAST, - CT ABD PELVIS W/CONT 06/13/2020 2:00 AM Ordering Physician: Jacinto Mullen MD Patient Name: REZA MAJOR MR: [id number] : 1980; Age: 40 years y/o Male Clinical Indication: Chest and abdominal pain related to trauma. Comparison: None TECHNIQUE: Multiple contiguous postcontrast transaxial CT images were obtained from the base of the neck through the symphysis pubis. Sagittal and coronal reformatted images were prepared. CT imaging performed at this location utilizes radiation dose optimization techniques which include one or more of the following: -Automated exposure control -Adjustment of the mA and/or kV according to patient size -Use of iterative reconstruction technique IV CONTRAST: [id number] Radiation Dose DLP: 1531.16 mGy-cm FINDINGS: CT CHEST WITH CONTRAST: LUNGS: Well inflated lungs associated with innumerable tiny groundglass nodules throughout both lungs best demonstrated in the upper lobes and lung apices. Mild bilateral basilar subsegmental atelectasis and scarring. Scattered subpleural bullae in both lung bases. Scattered indeterminate solid pulmonary nodules mainly peripherally in both lungs greatest in the upper lobes and lung apices ranging from 2-5 mm. No pleural effusion or pneumothorax. AIRWAY: Clear central tracheobronchial tree. PAGE 1 Signed Report (CONTINUED) Name: REZA MAJOR [facility] : 1980 Age/S: 40 / M [address] [place] [address] Bl Unit #: [id number] Loc: [place] [address] Phys: Jacinto Mullen MD Acct: [id number] Dis Date: Status: [facility] ER PHONE #: [phone] Exam Date: 06/13/2020238 FAX #: [phone] Reason: PAIN WITH TRAUMA EXAMS: CPT CODE: [id number] CT ABD PELVIS W/CONT 02573 <Continued> HEART: Mild cardiomegaly associated with trace pericardial effusion and prominent pericardial fat. THORACIC AORTA: Normal caliber without aneurysm or dissection. PULMONARY ARTERIES: No evidence of central pulmonary embolus. MEDIASTINUM AND JOHNNA: Scattered small mediastinal and bilateral hilar lymph nodes without lymphadenopathy or mass. SOFT TISSUES: No suspicious soft tissue lesion or abnormality. OSSEOUS STRUCTURES: Mild to moderate thoracic spondylosis and facet arthrosis with mild loss of vertebral body height at several levels in the lower thoracic spine most consistent with degenerative change or mild old compression fractures with 10-20% loss of height at maximum. Otherwise, no acute fracture or dislocation in the chest. CT ABDOMEN WITH CONTRAST: BOWEL GAS: Nonobstructed bowel gas pattern with mild wall thickening in the transverse colon and left hemicolon most consistent with underdistention. APPENDIX: Normal appendix without inflammatory change. STOMACH: Under distended appropriately thick-walled. PERITONEUM AND MESENTERY: Free Air: No evidence of pneumoperitoneum. Free Fluid: No evidence of significant free fluid, loculated fluid, peripherally enhancing abscess, or hemorrhage. Mesenteric and peritoneal fat: Normal without focal lesion or inflammation. LYMPH NODES: Scattered subcentimeter central mesenteric and retroperitoneal lymph nodes without lymphadenopathy or mass. VASCULAR: Abdominal Aorta: Normal caliber abdominal aorta without aneurysm or dissection. IVC: Normal. PAGE 2 Signed Report (CONTINUED) Name: REZA MAJOR [facility] : 1980 Age/S: 40 / M [address] [place] [address] Unit #: [id number] Loc: [place] [address] Phys: Jacinto Mullen MD Acct: [id number] Dis Date: Status: [facility] ER PHONE #: [phone] Exam Date: 06/13/2020238 FAX #: [phone] Reason: PAIN WITH TRAUMA EXAMS: CPT CODE: [id number] CT ABD PELVIS W/CONT 93048 <Continued> ABDOMINAL ORGANS: Liver: Normal size liver with a small 8 mm calcified lesion or calcified granuloma. Gallbladder: Postoperative change of cholecystectomy. Biliary Tree: Mildly prominent to dilated intrahepatic and extrahepatic bile ducts likely physiological in nature status post cholecystectomy. Kidneys: Normal size and morphology without discrete lesion or hydronephrosis. Adrenal Glands: Normal size and morphology without discrete lesion. Pancreas: Normal size and morphology without discrete lesion. Spleen: Normal size and morphology without discrete lesion. PELVIC ORGANS: Urinary bladder: Normal nonenhanced appropriate for degree of distention. Reproductive organs: Normal prostate and seminal vesicles. SOFT TISSUES: No suspicious soft tissue lesion or abnormality. OSSEOUS STRUCTURES: No fracture, dislocation, or suspicious focal osseous lesion. IMPRESSION: No acute fracture, dislocation, or acute internal injury in the chest, abdomen, or pelvis. Mild to moderate thoracic spondylosis and facet arthrosis greatest in the lower lumbar spine associated with loss of vertebral body height ranging from 10-20% at multiple contiguous levels greatest anteriorly in the mid to lower thoracic spine most likely degenerative in nature although mild old compression fractures cannot entirely be excluded. PAGE 3 Signed Report (CONTINUED) Name: REZA MAJOR [facility] : 1980 Age/S: 40 / M [address] [place] [address] Blvd Unit #: [id number] Loc: [place] [address] Phys: Jacinto Mullen MD Acct: [id number] Dis Date: Status: DEP ER PHONE #: [phone] Exam Date: 06/13/2020238 FAX #: [phone] Reason: PAIN WITH TRAUMA EXAMS: CPT CODE: [id number] CT ABD PELVIS W/CONT 24707 <Continued> No definite acute thoracic spine fracture is appreciated. Follow-up MR could be obtained for confirmation if thoracic pain is present. Innumerable tiny groundglass nodules throughout both lungs greatest in the upper lobes and lung apices most likely an infectious or inflammatory etiology or possibly hypersensitivity pneumonitis. Additionally, several scattered more solid-appearing pulmonary nodules are seen ranging from 3-5 mm. Clinical correlation and short interval follow-up CT chest is recommended. Mild cardiomegaly associated with trace pericardial effusion and prominent pericardial fat. Cholecystectomy with mild central biliary ductal dilatation likely physiological in nature related to reservoir effect. Subcentimeter benign-appearing calcified hepatic lesion versus a calcified granuloma. SL: TPAINTER-H at 0318 Reported and signed by: Evangelista Foster M.D. CC: Jacinto Mullen MD Technologist:Danny Jackson RT(R)(CT) CTDI: DLP: Trnscb Date/Time: 06/13/2020 (317) [email or web address] Orig Print D/T: S: 06/13/2020 (320) PAGE 4 Signed Report - CT C-SPINE W/O 2020-06-13 CONT 03:02:00 [facility]FTALY VIZCAINOName: REZA MAJOR : 1980 Sex: M Name: REZA MAJOR [facility] [place] : 1980 Age/S: 40 / M [address] [place], [place] [address]vd Unit #: [id number] Loc: [place] [address] Phys: Jacinto Mullen MD Acct: [id number] Dis Date: Status: REG ER PHONE #: [phone] Exam Date: 06/13/2020238 FAX #: [phone] Reason: NECK PAIN EXAMS: CPT CODE: [id number] CT C-SPINE W/O CONT 18244 STUDY: - CT C-SPINE W/O CONT 06/13/2020 2:00 AM Ordering Physician: Jacinto Mullen MD Patient Name: REZA MAJOR MR: [id number] : 1980; Age: 40 years y/o Male Clinical Indication: Cervical pain related to trauma. Comparison: None Technique: Multiple contiguous noncontrast CT images were obtained through the cervical spine. Coronal and sagittal reconstructions were prepared. CT imaging performed at this location utilizes radiation dose optimization techniques which include one or more of the following: -Automated exposure control -Adjustment of the mA and/or kV according to patient size -Use of iterative reconstruction technique CT Radiation Dose DLP: 272.83 mGy-cm FINDINGS: ALIGNMENT AND GENERAL ASSESSMENT: Alignment is normal without subluxation. No significant spondylosis or facet joint arthrosis. No acute fracture, dislocation, or suspicious focal osseous lesion. DISK SPACES: No significant spinal canal narrowing or neural foraminal narrowing. PREVERTEBRAL SOFT TISSUES: The prevertebral soft tissue thickness is normal. LUNG APICES: Indeterminate right apical pulmonary nodule measuring 5 mm. IMPRESSION: PAGE 1 Signed Report (CONTINUED) Name: REZA MAJOR [facility] [place] : 1980 Age/S: 40 / M [address] [place] [address] Unit #: [id number] Loc: [place] [address] Phys: Jacinto Mullen MD Acct: [id number] Dis Date: Status: REG ER PHONE #: [phone] Exam Date: 06/13/2020238 FAX #: [phone] Reason: NECK PAIN EXAMS: CPT CODE: [id number] CT C-SPINE W/O CONT 80302 <Continued> No acute fracture or dislocation in the cervical spine. Indeterminate right apical pulmonary nodule measuring 5 mm. Short interval follow-up CT chest is recommended. SL: TPAINTER-H at 0302 Reported and signed by: Evangelista Foster M.D. CC: Jacinto Mullen MD Technologist:Danny Jackson RT(R)(CT) CTDI: DLP: Trnscb Date/Time: 06/13/2020 (301) [email or web address] Orig Print D/T: S: 06/13/2020 (304) PAGE 2 Signed Report - CT C-SPINE W/O 2020-06-13 CONT 03:02:00 [facility] 1980 Sex: M Name: REZA MAJOR [facility] [place] : 1980 Age/S: 40 / M [address] [place] [address] Unit #: [id number] Loc: [place] [address] Phys: Jacinto Mullen MD Acct: [id number] Dis Date: Status: DEP ER PHONE #: [phone] Exam Date: 06/13/2020238 FAX #: [phone] Reason: NECK PAIN EXAMS: CPT CODE: [id number] CT C-SPINE W/O CONT 34032 STUDY: - CT C-SPINE W/O CONT 06/13/2020 2:00 AM Ordering Physician: Jacinto Mullen MD Patient Name: REZA MAJOR MR: [id number] : 1980; Age: 40 years y/o Male Clinical Indication: Cervical pain related to trauma. Comparison: None Technique: Multiple contiguous noncontrast CT images were obtained through the cervical spine. Coronal and sagittal reconstructions were prepared. CT imaging performed at this location utilizes radiation dose optimization techniques which include one or more of the following: -Automated exposure control -Adjustment of the mA and/or kV according to patient size -Use of iterative reconstruction technique CT Radiation Dose DLP: 272.83 mGy-cm FINDINGS: ALIGNMENT AND GENERAL ASSESSMENT: Alignment is normal without subluxation. No significant spondylosis or facet joint arthrosis. No acute fracture, dislocation, or suspicious focal osseous lesion. DISK SPACES: No significant spinal canal narrowing or neural foraminal narrowing. PREVERTEBRAL SOFT TISSUES: The prevertebral soft tissue thickness is normal. LUNG APICES: Indeterminate right apical pulmonary nodule measuring 5 mm. IMPRESSION: PAGE 1 Signed Report (CONTINUED) Name: REZA MAJOR [facility] : 1980 Age/S: 40 / M [address] [place] [address] Unit #: [id number] Loc: [place] [address] Phys: Jacinto Mullen MD Acct: [id number] Dis Date: Status: [facility] ER PHONE #: [phone] Exam Date: 06/13/2020238 FAX #: [phone] Reason: NECK PAIN EXAMS: CPT CODE: [id number] CT C-SPINE W/O CONT 07533 <Continued> No acute fracture or dislocation in the cervical spine. Indeterminate right apical pulmonary nodule measuring 5 mm. Short interval follow-up CT chest is recommended. SL: TPAINTER-H at 0302 Reported and signed by: Evangelista Foster M.D. CC: Jacinto Mullen MD Technologist:RT Leticia(R)(CT) CTDI: DLP: Trnscb Date/Time: 06/13/2020 (301) [email or web address] Orig Print D/T: S: 06/13/2020 (5) PAGE 2 Signed Report - CT HEAD/BRAIN 2020-06-13 W/O CONT 02:56:00 [facility] 1980 Sex: M Name: REZA MAJOR [facility] : 1980 Age/S: 40 / M [address] [place] [address] Unit #: [id number] Loc: [place] [address] Phys: Jacinto Mullen MD Acct: [id number] Dis Date: Status: REG ER PHONE #: [phone] Exam Date: 06/13/2020238 FAX #: [phone] Reason: HEADACHE EXAMS: CPT CODE: [id number] CT HEAD/BRAIN W/O CONT 89587 STUDY: - CT HEAD/BRAIN W/O CONT 06/13/2020 2:00 AM Ordering Physician: Jacinto Mullen MD Patient Name: REZA MAJOR MR: [id number] : 1980; Age: 40 years y/o Male Clinical Indication: HEADACHE Comparison: None TECHNIQUE: Multiple contiguous transaxial noncontrast CT images were obtained through the head. Coronal and sagittal reformatted images were prepared. CT imaging performed at this location utilizes radiation dose optimization techniques which include one or more of the following: -Automated exposure control -Adjustment of the mA and/or kV according to patient size -Use of iterative reconstruction technique CT Radiation Dose DLP: 591.22 mGy-cm FINDINGS: BRAIN PARENCHYMA: The brain volume is appropriate for age. No evidence of acute intracranial hemorrhage, mass lesion, mass effect, midline shift, or extra-axial fluid collection. VENTRICLES: The lateral ventricles, third ventricle, fourth ventricle, and basilar cisterns are appropriate for degree of atrophy present. PARANASAL SINUSES: Small right maxillary sinus mucus retention cyst. The visualized portions of the remaining paranasal sinuses are clear. MASTOIDS: Clear. ORBITS: The visualized portions of the orbits are normal. SOFT TISSUES: No significant abnormality. SKULL: No acute fracture or suspicious osseous lesion. PAGE 1 Signed Report (CONTINUED) Name: REZA MAJOR [facility] [place] : 1980 Age/S: 40 / M [address] [place] [address] Unit #: [id number] Loc: [place] [address] Phys: Jacinto Mullen MD Acct: [id number] Dis Date: Status: REG ER PHONE #: [phone] Exam Date: 06/13/2020238 FAX #: [phone] Reason: HEADACHE EXAMS: CPT CODE: [id number] CT HEAD/BRAIN W/O CONT 63827 <Continued> IMPRESSION: Normal brain without acute intracranial abnormality. Mild chronic sinusitis. at 0256 Reported and signed by: Evangelista Foster M.D. CC: Jacinto Mullen MD Technologist:Danny Jackson RT(R)(CT) CTDI: DLP: Trnscb Date/Time: 06/13/2020 (255) [email or web address] Orig Print D/T: S: 06/13/2020 (0300) PAGE 2 Signed Report - CT HEAD/BRAIN 2020-06-13 W/O CONT 02:56:00 [facility] 1980 Sex: M Name: REZA MAJOR [facility] Neftaly Vizcaino : 1980 Age/S: 40 / M [address] [place] [address] Unit #: [id number] Loc: [place] [address] Phys: Jacinto Mullen MD Acct: [id number] Dis Date: Status: DEP ER PHONE #: [phone] Exam Date: 06/13/2020238 FAX #: [phone] Reason: HEADACHE EXAMS: CPT CODE: [id number] CT HEAD/BRAIN W/O CONT 53748 STUDY: - CT HEAD/BRAIN W/O CONT 06/13/2020 2:00 AM Ordering Physician: Jacinto Mullen MD Patient Name: REZA MAJOR MR: [id number] : 1980; Age: 40 years y/o Male Clinical Indication: HEADACHE Comparison: None TECHNIQUE: Multiple contiguous transaxial noncontrast CT images were obtained through the head. Coronal and sagittal reformatted images were prepared. CT imaging performed at this location utilizes radiation dose optimization techniques which include one or more of the following: -Automated exposure control -Adjustment of the mA and/or kV according to patient size -Use of iterative reconstruction technique CT Radiation Dose DLP: 591.22 mGy-cm FINDINGS: BRAIN PARENCHYMA: The brain volume is appropriate for age. No evidence of acute intracranial hemorrhage, mass lesion, mass effect, midline shift, or extra-axial fluid collection. VENTRICLES: The lateral ventricles, third ventricle, fourth ventricle, and basilar cisterns are appropriate for degree of atrophy present. PARANASAL SINUSES: Small right maxillary sinus mucus retention cyst. The visualized portions of the remaining paranasal sinuses are clear. MASTOIDS: Clear. ORBITS: The visualized portions of the orbits are normal. SOFT TISSUES: No significant abnormality. SKULL: No acute fracture or suspicious osseous lesion. PAGE 1 Signed Report (CONTINUED) Name: REZA MAJOR [facility] [place] : 1980 Age/S: 40 / M [address] [place] [address] Unit #: [id number] Loc: [place] [address] Phys: Jacinto Mullen MD Acct: [id number] Dis Date: Status: DEP ER PHONE #: [phone] Exam Date: 06/13/2020238 FAX #: [phone] Reason: HEADACHE EXAMS: CPT CODE: [id number] CT HEAD/BRAIN W/O CONT 39682 <Continued> IMPRESSION: Normal brain without acute intracranial abnormality. Mild chronic sinusitis. at 0256 Reported and signed by: Evangelista Foster M.D. CC: Jacinto Mullen MD Technologist:RT Leticia(R)(CT) CTDI: DLP: Trnscb Date/Time: 06/13/2020 (255) [email or web address] Orig Print D/T: S: 06/13/2020 (0307) PAGE 2 Signed Report BASIC METABOLIC PANEL 2020-06-13 02:42:00 Test Item Value Reference Range Interpretation Comme nts SODIUM (test code = NA) 139 mEq/L 134-147 N POTASSIUM (test code = K) 3.8 mEq/L 3.4-5.0 N CHLORIDE (test code = CL) 105 mEq/L 100-108 N CARBON DIOXIDE (test code = CO2) 24 mEq/l 21-33 N ANION GAP (test code = GAP) 14 0-20 N GLUCOSE (test code = GLU) 335 mg/dL 70-110 H BLOOD UREA NITROGEN (test code = 11 mg/dL 7-18 N BUN) GLOMERULAR FILTRATION RATE (test 124.3 95-105 H Units of measure = ml/min/1.73 code = GFR) m2 CREATININE (test code = CREAT) 0.7 mg/dL 0.6-1.3 N CALCIUM (test code = CA) 9.5 mg/dL 8.0-10.5 N [id number] 02:42:00 Test Item Value Reference Range Interpretation Comments ALCOHOL (test code 3.2 mg/dL <10 N Ethyl Alc ohol = ALC) Interpretation: 100 mg/dL - Legally Intoxicated 300-400 mg/dL - Severely Intoxicated >400 mg/dL - Po tentially LethalThe pharm acological response to blo od alcohol levels mayvary from individual to i ndividual. Signs of intoxi cationcan be observed at levels of 50-100 mg/dL. R esults are for Medical pur poses only, and not for Leg al orEmployment ev aluation purposes. CBC W/AUTO [id number] 02:32:00 Test Item Value Reference Range Interpretation Comments WHITE BLOOD CELL (test code = 12.2 x10 3/uL 4.5-11.0 H WBC) RED BLOOD CELL (test code = 4.85 x10 6/uL 4.00-5.60 N RBC) HEMOGLOBIN (test code = HGB) 14.4 g/dL 12.5-16.9 N HEMATOCRIT (test code = HCT) 43.2 % 37.5-50.7 N MEAN CELL VOLUME (test code = 89.1 fL 81.0-99.0 N MCV) MEAN CELL HGB (test code = MCH) 29.7 pg 27.0-33.0 N MEAN CELL HGB CONCETRATION 33.3 g/dL 33.0-37.0 N (test code = MCHC) RED CELL DISTRIBUTION WIDTH CV 12.6 % 11.5-14.5 N (test code = RDW) RED CELL DISTRIBUTION WIDTH SD 41.5 fL 37.0-54.0 N (test code = RDW-SD) PLATELET COUNT (test code = 370 x10 3/uL 150-400 N PLT) MEAN PLATELET VOLUME (test code 8.9 fL 7.0-9.0 N = MPV) NEUTROPHIL % (test code = NT%) 68.3 % 56.0-77.0 N IMMATURE GRANULOCYTE % (test 0.5 % 0.0-2.0 N code = IG%) LYMPHOCYTE % (test code = LY%) 22.9 % 14.0-32.0 N MONOCYTE % (test code = MO%) 5.1 % 4.8-9.0 N EOSINOPHIL % (test code = EO%) 2.5 % 0.3-3.7 N BASOPHIL % (test code = BA%) 0.7 % 0.0-2.0 N NUCLEATED RBC % (test code = 0.0 % 0-0 N NRBC%) NEUTROPHIL # (test code = NT#) 8.32 x10 3/uL 2.0-7.6 H IMMATURE GRANULOCYTE # (test 0.06 x10 3/uL 0.00-0.03 H code = IG#) LYMPHOCYTE # (test code = LY#) 2.78 x10 3/uL 1.0-3.8 N MONOCYTE # (test code = MO#) 0.62 x10 3/uL 0.1-0.8 N EOSINOPHIL # (test code = EO#) 0.30 x10 3/uL 0.0-0.2 H BASOPHIL # (test code = BA#) 0.08 x10 3/uL 0.0-0.2 N NUCLEATED RBC # (test code = 0.00 x10 3/uL 0.0-0.1 N NRBC#) MANUAL DIFF REQUIRED (test code NO = MDIFF) CBC W/AUTO [id number] 02:31:00 Test Item Value Reference Range Interpretation Comments WHITE BLOOD CELL (test code = x10 3/uL 4.5-11.0 WBC) RED BLOOD CELL (test code = RBC) x10 6/uL 4.00-5.60 HEMOGLOBIN (test code = HGB) 14.4 g/dL 12.5-16.9 N HEMATOCRIT (test code = HCT) 43.2 % 37.5-50.7 N MEAN CELL VOLUME (test code = fL 81.0-99.0 MCV) MEAN CELL HGB (test code = MCH) pg 27.0-33.0 MEAN CELL HGB CONCETRATION (test g/dL 33.0-37.0 code = MCHC) RED CELL DISTRIBUTION WIDTH CV % 11.5-14.5 (test code = RDW) PLATELET COUNT (test code = PLT) 370 x10 3/uL 150-400 N NEUTROPHIL % (test code = NT%) % 56.0-77.0 LYMPHOCYTE % (test code = LY%) % 14.0-32.0 NEUTROPHIL # (test code = NT#) x10 3/uL 2.0-7.6 LYMPHOCYTE # (test code = LY#) x10 3/uL 1.0-3.8 MANUAL DIFF REQUIRED (test code = MDIFF) - XR SHOULDER 2+V [id number] 10:00:00 Name: REZA MAJOR [facility] : 1980 Age/S: 39 / M [address] [place] Unit #: [id number] Loc: [place] [address] Phys: Arias Perez MD Acct: [id number] Dis Date: Status: REG ER PHONE #: [phone] Exam Date: 12/29/2019 0957 FAX #: Reason: pain EXAMS: CPT: [id number] XR SHOULDER 2+[place] [address] Fluoro Time: DAP (Gy m2): Air Kerma (mGy): Site ID: [id number] INDICATION: Left shoulder pain FINDINGS: Osseous alignment and bone mineral density are normal. No fracture or destructive bone lesion. Glenohumeral articulation appears normal. No AC joint abnormality. IMPRESSION: Normal left shoulder x-rays at 1000 Reported and signed by: Jim Valentino M.D. CC: Arias Perez MD PAGE 1 Signed Report Name: REZA MAJOR [facility] : 1980 Age/S: 39 / M [address] [place] [address] Unit #: [id number] Loc: [place] [id number] Phys: Arias Perez MD Acct: [id number] Dis Date: Status: REG ER PHONE #: [phone] Exam Date: 12/29/2019 0957 FAX #: Reason: pain EXAMS: CPT: [id number] XR SHOULDER 2+[place] [address] Fluoro Time: DAP (Gy m2): Air Kerma (mGy): <Continued> Technologist: RT Zamzam(R) Trnscb Date/Time: 12/29/2019 (1000) [email or web address] Orig Print D/T: S: 12/29/2019 (1003) PAGE 2Signed Report- XR SHOULDER 2+V LT 2019-12-29 10:00:00 [facility] 1980 Sex: M Name: REZA MAJOR [facility] : 1980Age/S: 39 / M [facility] [address] [place] Unit #: [id number] Loc: [place] [address] Phys: Arias Perez MD Acct: [id number] Dis Date: Status: DEP ER PHONE#: [phone] Exam Date: 12/29/2019 0957 FAX #: Reason: pain EXAMS: CPT: [id number] XR SHOULDER 2+[place] [address] Fluoro Time: DAP (Gy m2): Air Kerma (mGy): Site ID: [id number] INDICATION: Left shoulder pain FINDINGS: Osseous alignment and bone mineral densityare normal. No fracture or destructive bone lesion. Glenohumeral articulation appears normal. No AC joint abnormality. IMPRESSION: Normal left shoulder x-rays at 1000 Reported and signed by: Jim Valentino M.D. CC: Arias Carvajal PAGE 1 Signed Report Name: REZA MAJOR [facility] : 1980 Age/S: 39 / M [address] [place] [address] Unit #: [id number] Loc: [place] [address] Phys: Arias Perez MD Acct: [id number] Dis Date: Status: DEP ER PHONE #: [phone] Exam Date: 12/29/2019 0957 FAX #: Reason: pain EXAMS: CPT: [id number] XR SHOULDER 2+[place] [address] Fluoro Time: DAP (Gy m2): Air Kerma (mGy): <Continued> Technologist: Gina Rodriguez RT(R) Trnscb Date/Time: 12/29/2019 (1000) [email or web address] Orig Print D/T: S: 12/29/2019 (1003) PAGE 2 Signed Report- XR SHOULDER 2 + V [id number] 21:43:00 FAX: Viola Naidu [phone] [place]: St: PRE Name: REZA MAJOR [facility] : 1980 Age/S: 39/M [address] [place] [address] Unit#: [id number] Loc: [place], [place] [address] Phys: Viola Godo Acct: [id number] Dis Date: Status: PRE ER PHONE #: [phone] Exam Date: 10/13/20192118 FAX #: [phone] Reason: L shoulder pain EXAMS: CPT CODE: [id number] XR SHOULDER 2 + [place] [address] Left shoulder 3 views: HISTORY: Pain from lifting weights. FINDINGS: Normal alignment. No fracture, dislocation or soft tissue abnormality IMPRESSION: Negative SL: EG-H at 2142 Reported and signed by: Star Islas M.D. CC: Viola Good PATechnologist: DENAE Mascorro RT(R); Nancy Hayes RT(R) [facility] Date/Time/By: 10/13/2019 (2142) : By: BiancaG Orig Print D/T: S: 10/13/2019 (2145) PAGE1 Signed Report- CT ABD PELVIS W/O [id number] 13:55:00 Name: REZA MAJOR [facility] : 1980 Age/S: 39 / M [address] [place] [address] Unit #: [id number] Loc: [place] [id number] Phys: Divya Barahona NP Acct: [id number] Dis Date: Status: PRE ER PHONE #: [phone] Exam Date: 07/08/2019 1322 FAX #: [phone] Reason: rlq, ruq, r flank pain, diarrhea EXAMS: CPTCODE: [id number] CT ABD PELVIS W/O CONT 78540 Clinical Ind ication: Right lower quadrant pain, right upper quadrant pain, right flank pain. Comparison: 09/21/2018. TECHNIQUE: Contiguous axial CT images of the abdomen and pelvis were acquired without the administration of IV contrast. Oral contrast was not administered. Coronal and sagittal reconstructions were obtained. CT imaging performed at this locationutilizes radiation dose optimization techniques which include one or more of the following: -Automated exposure control -Adjustment of the mA and/or kV according to patient size-Use of iterative reconstruction technique CT Radiation Dose DLP 695.4 mGy-cm FINDINGS: Mild edema in the lung bases. Visualized cardiac apex is unremarkable. Coarse calcified lesion in the liver, likely a granuloma. Gallbladder is surgically absent. Spleen, pancreas, and adrenal glands are unremarkable. Kidneys are unremarkable. Stomach and small bowel are normal. No obstruction. Appendix is normal caliber. Moderate colonic stool burden. Urinary bladder and prostate are unremarkable. Abdominal aorta is normal caliber. No free fluid or pneumoperitoneum. Mild degenerative changes of the spine. No destructive osseous lesion. IMPRESSION: 1. Mild edema in the lung bases. No acute abdominal or pelvic process. SL: [id number] at 1355 Reported and signed by: Matheus Berumen M.D. PAGE 1 Signed Report (CONTINUED) Name: REZA MAJOR [facility] : 1980 Age/S: 39 / M [address] [place] [address] Blvd Unit #: [id number] Loc: [place] [address] [facility] s: Divya Barahona NP Acct: [id number] Dis Date: Status: PRE ER PHONE #: [phone] Exam Date: 07/08/2019 1322 FAX #: [phone] Reason: rlq, ruq, r flank pain, diarrhea EXAMS: CPT CODE: [id number] CT ABD PELVIS W/O CONT 55780 <Continued> CC: Divya Barahona NP Technologist:Eladia Santana RT(R)(CT) CTDI: DLP: Trnscb Date/Time: 07/08/2019 (0052) [email or web address] Orig Print D/T: S: 07/08/2019 (3646) PAGE 2 Signed Report COMPREHENSIVE METABOLIC [id number] 13:39:00 Test Item Value Reference Range Interpretation Comments SODIUM (test code = NA) 135 mEq/L 134-147 N POTASSIUM (test code = 3.7 mEq/L 3.4-5.0 N K) CHLORIDE (test code = 106 mEq/L 100-108 N CL) CARBON DIOXIDE (test 26 mEq/L 21-33 N code = CO2) ANION GAP (test code = 7 0-20 N GAP) GLUCOSE (test code = 157 mg/dL 70-110 H GLU) BLOOD UREA NITROGEN 8 mg/dL 7-18 N (test code = BUN) GLOMERULAR FILTRATION 124.9 95-105 H Units of measure = RATE (test code = GFR) ml/mi n/1.73 m2 CREATININE (test code = 0.7 mg/dL 0.6-1.3 N CREAT) TOTAL PROTEIN (test 7.0 g/dL 6.4-8.2 N code = PROT) ALBUMIN (test code = 3.30 g/dL 3.4-5.0 L ALB) CALCIUM (test code = 8.4 mg/dL 8.0-10.5 N CA) BILIRUBIN TOTAL (test 0.2 MG/DL <1.5 N code = BILT) SGOT/AST (test code = 6 IUnit/L 15-37 L AST) SGPT/ALT (test code = 10 IUnit/L 15-65 L ALT) ALKALINE PHOSPHATASE 136 IUnit/L 20-125 H TOTAL (test code = ALKP) [id number] 13:39:00 Test Item Value Reference Range Interpretation Comments LIPASE (test code = LIP) 56 IUnit/L 73-393 L URINALYSIS [id number] 13:36:00 Test Item Value Reference Range Interpretation Comments UA COLOR (test code = COLU) YELLOW YEL/STRAW UA APPEARANCE (test code = CLEAR CLEAR APPU) UA GLUCOSE DIPSTICK (test NEGATIVE NEGATIVE code = DGLUU) UA BILIRUBIN DIPSTICK (test NEGATIVE NEGATIVE code = BILU) UA KETONE DIPSTICK (test NEGATIVE NEGATIVE code = KETU) UA SPECIFIC GRAVITY (test 1.005 1.005-1.030 N code = SGU) UA BLOOD DIPSTICK (test NEGATIVE NEGATIVE code = JOSUE) UA PH DIPSTICK (test code = 5.0 5.0-7.0 N DONELL) UA PROTEIN DIPSTICK (test NEGATIVE NEGATIVE code = PROU) UA UROBILINIOGEN DIPSTICK 0.2 mg/dL 0.2-1.0 (test code = URO) UA NITRITE DIPSTICK (test NEGATIVE NEGATIVE code = RENETTA) UA LEUKOCYTE ESTERASE NEGATIVE NEGATIVE DIPSTICK (test code = LEUU) UA RBC (test code = RBCU) NONE SEEN RBC/HPF 0-3 UA WBC NO REFLEX (test code 0-3 WBC/HPF 0-3 = WBCUCL) UA BACTERIA (test code = TRACE /HPF NONE SEEN BACU) UA SQUAMOUS CELLS (test 0-5 /HPF NONE SEEN code = SQU) UA MUCUS (test code = MUCU) TRACE /LPF NONE SEEN COMPREHENSIVE METABOLIC [id number] 13:31:00 Test Item Value Reference Range Interpretation Comments SODIUM (test code = NA) 135 mEq/L 134-147 N POTASSIUM (test code = K) 3.7 mEq/L 3.4-5.0 N CHLORIDE (test code = CL) 106 mEq/L 100-108 N CARBON DIOXIDE (test code = CO2) 26 mEq/L 21-33 N ANION GAP (test code = GAP) 7 0-20 N GLUCOSE (test code = GLU) 157 mg/dL 70-110 H BLOOD UREA NITROGEN (test code = 8 mg/dL 7-18 N BUN) GLOMERULAR FILTRATION RATE (test 95-105 code = GFR) CREATININE (test code = CREAT) mg/dL 0.6-1.3 TOTAL PROTEIN (test code = PROT) g/dL 6.4-8.2 ALBUMIN (test code = ALB) g/dL 3.4-5.0 CALCIUM (test code = CA) 8.4 mg/dL 8.0-10.5 N BILIRUBIN TOTAL (test code = BILT) MG/DL <1.5 SGOT/AST (test code = AST) IUnit/L 15-37 SGPT/ALT (test code = ALT) IUnit/L 15-65 ALKALINE PHOSPHATASE TOTAL (test IUnit/L 20-125 code = ALKP) [id number] 13:31:00 Test Item Value Reference Range Interpretation Comments LIPASE (test code = LIP) 56 IUnit/L 73-393 L CBC W/AUTO [id number] 13:27:00 Test Item Value Reference Range Interpretation Comments WHITE BLOOD CELL (test code = 8.68 x10 3/uL 4.5-11.0 N WBC) RED BLOOD CELL (test code = 4.00 x10 6/uL 4.00-5.60 N RBC) HEMOGLOBIN (test code = HGB) 12.1 g/dL 12.5-16.9 L HEMATOCRIT (test code = HCT) 37.0 % 37.5-50.7 L MEAN CELL VOLUME (test code = 92.5 fL 81.0-99.0 N MCV) MEAN CELL HGB (test code = MCH) 30.3 pg 27.0-33.0 N MEAN CELL HGB CONCETRATION 32.7 g/dL 33.0-37.0 L (test code = MCHC) RED CELL DISTRIBUTION WIDTH CV 14.6 % 11.5-14.5 H (test code = RDW) RED CELL DISTRIBUTION WIDTH SD 50.1 fL 37.0-54.0 N (test code = RDW-SD) PLATELET COUNT (test code = 310 x10 3/uL 150-400 N PLT) MEAN PLATELET VOLUME (test code 8.7 fL 7.0-9.0 N = MPV) NEUTROPHIL % (test code = NT%) 71.3 % 56.0-77.0 N IMMATURE GRANULOCYTE % (test 0.3 % 0.0-2.0 N code = IG%) LYMPHOCYTE % (test code = LY%) 20.6 % 14.0-32.0 N MONOCYTE % (test code = MO%) 4.5 % 4.8-9.0 L EOSINOPHIL % (test code = EO%) 2.5 % 0.3-3.7 N BASOPHIL % (test code = BA%) 0.8 % 0.0-2.0 N NUCLEATED RBC % (test code = 0.0 % 0-0 N NRBC%) NEUTROPHIL # (test code = NT#) 6.18 x10 3/uL 2.0-7.6 N IMMATURE GRANULOCYTE # (test 0.03 x10 3/uL 0.00-0.03 N code = IG#) LYMPHOCYTE # (test code = LY#) 1.79 x10 3/uL 1.0-3.8 N MONOCYTE # (test code = MO#) 0.39 x10 3/uL 0.1-0.8 N EOSINOPHIL # (test code = EO#) 0.22 x10 3/uL 0.0-0.2 H BASOPHIL # (test code = BA#) 0.07 x10 3/uL 0.0-0.2 N NUCLEATED RBC # (test code = 0.00 x10 3/uL 0.0-0.1 N NRBC#) MANUAL DIFF REQUIRED (test code NO = MDIFF) - XR CHEST 1 [id number] 09:10:00 FAX: Lew Mark [phone] [place]: St: REG Name: REZA MAJOR [facility] : 1980 Age/S: 38/M [address] [place] [address] Unit#: [id number] Loc: [place] [address] Phys: Lew Mark Acct: [id number] Dis Date: Status: REG ER PHONE #: [phone] Exam Date: 01/07/2019 0904 FAX #: [phone] Reason: cough and fever EXAMS: CPT CODE: [id number] XR CHEST 1 V 06013 EXAM: Single view AP chest. EXAM DATE: 01/07/2019 at 0902 hours CLINICAL HISTORY: cough and fever COMPARISON: October 06, 2017 at 1820 hours Cardiomediastinal silhouette is within normal limits. The lungs appear free of acute disease. No infiltrates or effusions are identified. Visualized osseous structures demonstrate no acute findings. IMPRESSION: No evidence of acute cardiopulmonary disease. at 0910 Reported and signed by: Christine Frost M.D. 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[facility] LACTIC [id number] 02:32:00 Test Item Value Reference Range Interpretation Comments LACTIC ACID (test code = LACT) 0.6 mmol/L 0.4-1.9 N - CT ABD PELVIS [id number] 02:06:00 Name: REZA MAJOR [facility] : 1980 Age/S: 38 / M [address] [place] [address] Blvd Unit #: [id number] Loc: [place], [id number] Phys: Hilario Renner MD Acct: [id number] Dis Date: Status: REG ER PHONE #: [phone] Exam Date: 09/21/2018 0135 FAX #: [phone] Reason: abd pain EXAMS: CPTCODE: [id number] CT ABD PELVIS W/CONT 61836 PROCEDURE: CT abdomen and pelvis with contrast dated 09/21/2018 INDICATION: Post cholecystectomy abdominal pain. Nausea and vomiting. COMPARISON: CT abdomen dated 09/15/2018 and 09/14/2018. TECHNIQUE: A CT of the abdomen pelvis was performed using helical images from the thoracic outlet through the pubic symphysis with subsequent sagittal and coronal reconstruction. IV CONTRAST: 100 cc of Isovue-300 GI CONTRAST: 500 mL of dilute Omnipaque 240 solution. FINDINGS: BILIARY: The patient is status post cholecystectomy. The postoperative changes in the fat of the gallbladder fossa have shown gradual improvement since 09/14/2018. No significant postoperative fluid collections are identified. No significant biliary ductal dilatation is present. SOLID ORGANS: No acute CT abnormalities of the liver, spleen, pancreas, adrenal glands or kidneys are detected. There is no CT evidence of acute renal collecting system obstruction. Assessment for nonobstructing renal collecting system stones is limited by the presence of excreted contrast within the renal collecting systems. No calcified renal collecting system stones were identified on the non contrast CT of 09/15/2018. BOWEL: No acute CT abnormalities of the bowel are identified. No small bowel dilatation is present to suggest acute obstruction. The appendix is identified and is not acutely inflamed. Increased stool is identified in the colon. There is no evidence of diverticular disease or inflammatory colonic wall thickening. PERITONEUM: There is no evidence of free intraperitoneal air. Trace free intraperitoneal fluid is identified in the pelvic cul-de-sac with the volume of intraperitoneal fluid having decreased since 09/15/2018. RETROPERITONEUM: The abdominal aorta is normal in caliber. There is no evidence of retroperitoneal mass or adenopathy. PELVIS: The bladder has an unremarkable appearance. No enlarged pelvic lymph nodes are noted. PAGE 1 Signed Report (CONTINUED) Name: REZA MAJOR [facility] : 1980 Age/S: 38 / M [address] [place], [place] [address]vd Unit #: [id number] Loc: [place] [address] Phys: Hilario Renner MD Acct: [id number] Dis Date: Status: REG ER PHONE #: [phone] Exam Date: 09/21/2018 0135 FAX #: [phone] Reason: abd pain EXAMS: CPT CODE: [id number] CT ABD PELVIS W/CONT 12506 <Continued> LOWER CHEST: The lung bases appear clearof acute disease. ADDITIONAL FINDINGS: No postoperative fluid collections are identified in the anterior abdominal wall. IMPRESSION: 1. CT findings compatible with the history of recent cholecystectomy. No acute CT abnormalities of the abdomen or pelvis are detected. SL: 131 at 0206 Reported and signed by: Master Floyd M.D. CC: Willy TY Technologist:RT Kathy(R) CTDI: DLP: Trnscb Date/Time: 09/21/2018 (020) DianaM Orig Print D/T: S: 09/21/2018 (208) PAGE 2 Signed ReportURINALYSIS [id number] 00:47:00 Test Item Value Reference Range Interpretation Comments UA COLOR (test code = COLU) STRAW YEL/STRAW UA APPEARANCE (test code = CLEAR CLEAR APPU) UA GLUCOSE DIPSTICK (test 1+ NEGATIVE A code = DGLUU) UA BILIRUBIN DIPSTICK (test NEGATIVE NEGATIVE code = BILU) UA KETONE DIPSTICK (test NEGATIVE NEGATIVE code = KETU) UA SPECIFIC GRAVITY (test 1.010 1.005-1.030 N code = SGU) UA BLOOD DIPSTICK (test NEGATIVE NEGATIVE code = JOSUE) UA PH DIPSTICK (test code = 6.5 5.0-7.0 N DONELL) UA PROTEIN DIPSTICK (test 2+ NEGATIVE A code = PROU) UA UROBILINIOGEN DIPSTICK 2.0 mg/dL 0.2-1.0 A (test code = URO) UA NITRITE DIPSTICK (test NEGATIVE NEGATIVE code = RENETTA) UA LEUKOCYTE ESTERASE NEGATIVE NEGATIVE DIPSTICK (test code = LEUU) UA WBC (test code = WBCU) NONE SEEN WBC/HPF 0-3 UA RBC (test code = RBCU) 0-3 RBC/HPF 0-3 UA BACTERIA (test code = TRACE /HPF NONE SEEN BACU) UA SQUAMOUS CELLS (test 0-5 /HPF NONE SEEN code = SQU) COMMENTS: Clean CatchURINALYSIS [id number] 00:46:00 Test Item Value Reference Range Interpretation Comments UA COLOR (test code = COLU) STRAW YEL/STRAW UA APPEARANCE (test code = APPU) CLEAR CLEAR UA GLUCOSE DIPSTICK (test code = 1+ NEGATIVE A DGLUU) UA BILIRUBIN DIPSTICK (test code = NEGATIVE NEGATIVE BILU) UA KETONE DIPSTICK (test code = NEGATIVE NEGATIVE KETU) UA SPECIFIC GRAVITY (test code = 1.010 1.005-1.030 N SGU) UA BLOOD DIPSTICK (test code = JOSUE) NEGATIVE NEGATIVE UA PH DIPSTICK (test code = DONELL) 6.5 5.0-7.0 N UA PROTEIN DIPSTICK (test code = 2+ NEGATIVE A PROU) UA UROBILINIOGEN DIPSTICK (test 2.0 mg/dL 0.2-1.0 A code = URO) UA NITRITE DIPSTICK (test code = NEGATIVE NEGATIVE RENETTA) UA LEUKOCYTE ESTERASE DIPSTICK NEGATIVE NEGATIVE (test code = LEUU) UA WBC (test code = WBCU) WBC/HPF 0-3 UA RBC (test code = RBCU) RBC/HPF 0-3 COMMENTS: Clean CatchCOMPREHENSIVE METABOLIC [id number] 00:43:00 Test Item Value Reference Range Interpretation Comments SODIUM (test code = NA) 136 mEq/L 134-147 N POTASSIUM (test code = 4.2 mEq/L 3.4-5.0 N K) CHLORIDE (test code = 107 mEq/L 100-108 N CL) CARBON DIOXIDE (test 27 mEq/L 21-33 N code = CO2) ANION GAP (test code = 6 0-20 N GAP) GLUCOSE (test code = 156 mg/dL 70-110 H GLU) BLOOD UREA NITROGEN 19 mg/dL 7-18 H (test code = BUN) GLOMERULAR FILTRATION 107.6 105-110 N Units of measure = RATE (test code = GFR) ml/mi n/1.73 m2 CREATININE (test code = 0.8 mg/dL 0.6-1.3 N CREAT) TOTAL PROTEIN (test 7.6 g/dL 6.4-8.2 N code = PROT) ALBUMIN (test code = 3.60 g/dL 3.4-5.0 N ALB) CALCIUM (test code = 8.4 mg/dL 8.0-10.5 N CA) BILIRUBIN TOTAL (test 0.20 mg/dL 0.0-1.0 N code = BILT) SGOT/AST (test code = 10 IUnit/L 15-37 L AST) SGPT/ALT (test code = 35 IUnit/L 15-65 N ALT) ALKALINE PHOSPHATASE 156 IUnit/L 20-125 H TOTAL (test code = ALKP) [id number] 00:43:00 Test Item Value Reference Range Interpretation Comments LIPASE (test code = LIP) 109 IUnit/L 73-393 N COMPREHENSIVE METABOLIC [id number] 00:41:00 Test Item Value Reference Range Interpretation Comments SODIUM (test code = NA) 136 mEq/L 134-147 N POTASSIUM (test code = 4.2 mEq/L 3.4-5.0 N K) CHLORIDE (test code = 107 mEq/L 100-108 N CL) CARBON DIOXIDE (test 27 mEq/L 21-33 N code = CO2) ANION GAP (test code = 6 0-20 N GAP) GLUCOSE (test code = 156 mg/dL 70-110 H GLU) BLOOD UREA NITROGEN 19 mg/dL 7-18 H (test code = BUN) GLOMERULAR FILTRATION 107.6 105-110 N Units of measure = RATE (test code = GFR) ml/mi n/1.73 m2 CREATININE (test code = 0.8 mg/dL 0.6-1.3 N CREAT) TOTAL PROTEIN (test g/dL 6.4-8.2 code = PROT) ALBUMIN (test code = 3.60 g/dL 3.4-5.0 N ALB) CALCIUM (test code = 8.4 mg/dL 8.0-10.5 N CA) BILIRUBIN TOTAL (test mg/dL 0.0-1.0 code = BILT) SGOT/AST (test code = 10 IUnit/L 15-37 L AST) SGPT/ALT (test code = 35 IUnit/L 15-65 N ALT) ALKALINE PHOSPHATASE IUnit/L 20-125 TOTAL (test code = ALKP) [id number] 00:41:00 Test Item Value Reference Range Interpretation Comments LIPASE (test code = LIP) 109 IUnit/L 73-393 N CBC W/AUTO [id number] 00:31:00 Test Item Value Reference Range Interpretation Comments WHITE BLOOD CELL (test code = 13.57 x10 3/uL 4.5-11.0 H WBC) RED BLOOD CELL (test code = 4.42 x10 6/uL 4.00-5.60 N RBC) HEMOGLOBIN (test code = HGB) 12.9 g/dL 12.5-16.9 N HEMATOCRIT (test code = HCT) 38.1 % 37.5-50.7 N MEAN CELL VOLUME (test code = 86.2 fL 81.0-99.0 N MCV) MEAN CELL HGB (test code = 29.2 pg 27.0-33.0 N MCH) MEAN CELL HGB CONCETRATION 33.9 g/dL 33.0-37.0 N (test code = MCHC) RED CELL DISTRIBUTION WIDTH CV 13.4 % 11.5-14.5 N (test code = RDW) RED CELL DISTRIBUTION WIDTH SD 41.9 fL 37.0-54.0 N (test code = RDW-SD) PLATELET COUNT (test code = 448 x10 3/uL 150-400 H PLT) MEAN PLATELET VOLUME (test 8.9 fL 7.0-9.0 N code = MPV) NEUTROPHIL % (test code = NT%) 71.1 % 56.0-77.0 N IMMATURE GRANULOCYTE % (test 0.4 % 0.0-2.0 N code = IG%) LYMPHOCYTE % (test code = LY%) 21.0 % 14.0-32.0 N MONOCYTE % (test code = MO%) 5.3 % 4.8-9.0 N EOSINOPHIL % (test code = EO%) 1.5 % 0.3-3.7 N BASOPHIL % (test code = BA%) 0.7 % 0.0-2.0 N NUCLEATED RBC % (test code = 0.0 % 0-0 N NRBC%) NEUTROPHIL # (test code = NT#) 9.64 x10 3/uL 2.0-7.6 H IMMATURE GRANULOCYTE # (test 0.05 x10 3/uL 0.00-0.03 H code = IG#) LYMPHOCYTE # (test code = LY#) 2.85 x10 3/uL 1.0-3.8 N MONOCYTE # (test code = MO#) 0.72 x10 3/uL 0.1-0.8 N EOSINOPHIL # (test code = EO#) 0.21 x10 3/uL 0.0-0.2 H BASOPHIL # (test code = BA#) 0.10 x10 3/uL 0.0-0.2 N NUCLEATED RBC # (test code = 0.00 x10 3/uL 0.0-0.1 N NRBC#) MANUAL DIFF REQUIRED (test NO code = MDIFF) [id number] 08:36:00 Test Item Value Reference Range Interpretation Comments GLUBED (test code = 125 MG/DL 70-110 H Performe d by certified 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[facility] COMPREHENSIVE METABOLIC [id number] 07:59:00 Test Item Value Reference Range Interpretation Comments SODIUM (test code = NA) 139 mEq/L 134-147 N POTASSIUM (test code = 3.8 mEq/L 3.4-5.0 N K) CHLORIDE (test code = 108 mEq/L 100-108 N CL) CARBON DIOXIDE (test 23 mEq/L 21-33 N code = CO2) ANION GAP (test code = 12 0-20 N GAP) GLUCOSE (test code = 106 mg/dL 70-110 N GLU) BLOOD UREA NITROGEN 10 mg/dL 7-18 N (test code = BUN) GLOMERULAR FILTRATION 150.0 105-110 H Units of measure = RATE (test code = GFR) ml/mi n/1.73 m2 CREATININE (test code = 0.6 mg/dL 0.6-1.3 N CREAT) TOTAL PROTEIN (test 7.2 g/dL 6.4-8.2 N code = PROT) ALBUMIN (test code = 3.20 g/dL 3.4-5.0 L ALB) CALCIUM (test code = 8.6 mg/dL 8.0-10.5 N CA) BILIRUBIN TOTAL (test 0.40 mg/dL 0.0-1.0 N code = BILT) SGOT/AST (test code = 34 IUnit/L 15-37 AST) SGPT/ALT (test code = 53 IUnit/L 15-65 N ALT) ALKALINE PHOSPHATASE 173 IUnit/L 20-125 H TOTAL (test code = ALKP) CBC W/AUTO [id number] 07:52:00 Test Item Value Reference Range Interpretation Comments WHITE BLOOD CELL (test code = 9.84 x10 3/uL 4.5-11.0 N WBC) RED BLOOD CELL (test code = 4.37 x10 6/uL 4.00-5.60 N RBC) HEMOGLOBIN (test code = HGB) 12.7 g/dL 12.5-16.9 N HEMATOCRIT (test code = HCT) 37.6 % 37.5-50.7 N MEAN CELL VOLUME (test code = 86.0 fL 81.0-99.0 N MCV) MEAN CELL HGB (test code = MCH) 29.1 pg 27.0-33.0 N MEAN CELL HGB CONCETRATION 33.8 g/dL 33.0-37.0 N (test code = MCHC) RED CELL DISTRIBUTION WIDTH CV 13.2 % 11.5-14.5 N (test code = RDW) RED CELL DISTRIBUTION WIDTH SD 41.1 fL 37.0-54.0 N (test code = RDW-SD) PLATELET COUNT (test code = 316 x10 3/uL 150-400 N PLT) MEAN PLATELET VOLUME (test code 9.2 fL 7.0-9.0 H = MPV) NEUTROPHIL % (test code = NT%) 67.9 % 56.0-77.0 N IMMATURE GRANULOCYTE % (test 0.3 % 0.0-2.0 N code = IG%) LYMPHOCYTE % (test code = LY%) 21.4 % 14.0-32.0 N MONOCYTE % (test code = MO%) 8.3 % 4.8-9.0 N EOSINOPHIL % (test code = EO%) 1.6 % 0.3-3.7 N BASOPHIL % (test code = BA%) 0.5 % 0.0-2.0 N NUCLEATED RBC % (test code = 0.0 % 0-0 N NRBC%) NEUTROPHIL # (test code = NT#) 6.67 x10 3/uL 2.0-7.6 N IMMATURE GRANULOCYTE # (test 0.03 x10 3/uL 0.00-0.03 N code = IG#) LYMPHOCYTE # (test code = LY#) 2.11 x10 3/uL 1.0-3.8 N MONOCYTE # (test code = MO#) 0.82 x10 3/uL 0.1-0.8 H EOSINOPHIL # (test code = EO#) 0.16 x10 3/uL 0.0-0.2 N BASOPHIL # (test code = BA#) 0.05 x10 3/uL 0.0-0.2 N NUCLEATED RBC # (test code = 0.00 x10 3/uL 0.0-0.1 N NRBC#) MANUAL DIFF REQUIRED (test code NO = MDIFF) - CT ABD PELVIS W/O [id number] 00:33:00 Name: REZA MAJOR [facility] : 1980 Age/S: 38 / M [address] [place] [address] Unit #: [id number] Loc: Richard [id number] Phys: Maninder Rosenthal Acct: [id number] Dis Date: Status: ADM IN PHONE #: [phone] Exam Date: 09/15/2018 3525 FAX #: [phone] Reason: ground l evel fall, reports abd pain, recent charla EXAMS: CPTCODE: [id number] CT ABD PELVIS W/O CONT 42332 EXAM: CT, CT ABDOMEN PELVIS: 09/15/2018, 2357 hours Clinical Indication: Ground-level fall. Abdominal pain.. Status postcholecystectomy. Ileus. Comparison: 09/14/2018, 1629 hours. TECHNIQUE: Noncontrast helical imaging was performed without IV contrastfrom diaphragm to the symphysis pubis regions. Multiplanar coronal and sagittal reformations are obtained. CT imaging was performed with exposure control parameters to reduce radiation dose. Oral contrast: None. CT Radiation Dose: DLP = 754.66 mGy-cm FINDI NGS: This examination is limited for the evaluation of solid organs and vascular structures due to withheld intravenous contrast. LOWER CHEST: The visualized lung bases are clear. NON- CONTRAST ENHANCED SOLID ORGANS: LIVER: Unremarkable. GALLBLADDER: Cholecystectomy. Mild inflammatory changes in trace nondiscrete fluid in the gallbladder fossa likely sequelae of recent surgery. Previously seen trace intra-abdominal air have resolved. INTRAHEPATIC BILE DUCT AND EXTRAHEPATIC BILE DUCT: Unremarkable. PANCREAS: Unremarkable. SPLEEN: Unremarkable. ADRENALS: Unremarkable. KIDNEYS: No urinary calculi, hydronephrosis or perinephric stranding. The renal contours are normal. NON-CONTRAST OPACIFIED STOMACH AND BOWEL: STOMACH: Hepatic calcification.. BOWEL:The non-contrast opacified small bowel loops in the abdomen and pelvis appear unremarkable. Mildly prominent colon containing air and mild to moderate fecal load. No evidence for bowel obstruction seen APPENDIX: Not well seen on the exam. The lack of orally administered contrast material limits bowel PAGE 1 Signed Report (CONTINUED) Name: REZA MAJOR [facility] : 1980 Age/S: 38 / M [address] [place], [place] [address]vd Unit #: [id number] Loc: [place] [address] Phys: Maninder Rosenthal DO Acct: [id number] Dis Date: Status: ADM IN PHONE #: [phone] Exam Date: 09/15/2018 2355 FAX #: [phone] Reason: ground level fall, reports abd pain, recent charla EXAMS: CPT CODE: [id number] CT ABD PELVIS W/O CONT 03349 <Continued> assessment. PERITONEUM AND RETROPERITONEUM: No ascites or free air.No other fluid collection. There is no aortic aneurysm seen. LYMPH NODES: Unremarkable. PELVIS: No pelvic mass or adenopathy. Calcification seen in prostate BLADDER: Unremarkable. OSSEOUS STRUCTURES: No acute abnormality seen. SOFT TISSUES: Unremarkable. IMPRESSION: 1. Post cholecystectomy. Resolving postsurgical changes. No abscess or biloma seen. Trace free air in the abdomen have resolved. 2. Mildly prominent colon filled with air and moderate fecal load.SL: JSYED-H at 0033 Reported and signed by: Cristopher Fairchild M.D. 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 Clinical Indication: Ileus, status post cholecystectomy. Comparison: CT scan of the abdomen and pelvis09/14/2018. FINDINGS: A supine radiograph of the abdomen in 2 views demonstrates surgical clips in the right upper quadrant post cholecystectomy. There is a nonspecific bowel gas pattern without definitive bowel obstruction or free intraperitoneal air. There is moderate retained fecal matter throughout the colon. IMPRESSION: 1. Moderate retained fecal matter throughout the colon. 2. Previous cholecystectomy. SL: K56-H at 1505 Reported and signed by: Arturo Garvey M.D. 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[facility] HGBA1C%2018-09-15 11:26:00 Test Item Value Reference Range Interpretation Comments HGBA1C% (test code = HGBA1C%) 7.4 %A1C 4.8-6.0 H BASIC METABOLIC [id number] 08:44:00 Test Item Value Reference Range Interpretation Comments SODIUM (test code = NA) 138 mEq/L 134-147 N POTASSIUM (test code = 3.7 mEq/L 3.4-5.0 N K) CHLORIDE (test code = 107 mEq/L 100-108 N CL) CARBON DIOXIDE (test 24 mEq/L 21-33 N code = CO2) ANION GAP (test code = 11 0-20 N GAP) GLUCOSE (test code = 123 mg/dL 70-110 H GLU) BLOOD UREA NITROGEN 11 mg/dL 7-18 N (test code = BUN) GLOMERULAR FILTRATION 185.1 105-110 H Units of measure = RATE (test code = GFR) ml/mi n/1.73 m2 CREATININE (test code = 0.5 mg/dL 0.6-1.3 L CREAT) CALCIUM (test code = 8.6 mg/dL 8.0-10.5 N CA) [id number] 08:09:00 Test Item Value Reference Range Interpretation Comments GLUBED (test code = 134 MG/DL 70-110 H Performe d by certified 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[facility] CBC W/AUTO [id number] 06:28:00 Test Item Value Reference Range Interpretation Comments WHITE BLOOD CELL (test code = 10.23 x10 3/uL 4.5-11.0 N WBC) RED BLOOD CELL (test code = 4.16 x10 6/uL 4.00-5.60 N RBC) HEMOGLOBIN (test code = HGB) 12.2 g/dL 12.5-16.9 L HEMATOCRIT (test code = HCT) 36.0 % 37.5-50.7 L MEAN CELL VOLUME (test code = 86.5 fL 81.0-99.0 N MCV) MEAN CELL HGB (test code = 29.3 pg 27.0-33.0 N MCH) MEAN CELL HGB CONCETRATION 33.9 g/dL 33.0-37.0 N (test code = MCHC) RED CELL DISTRIBUTION WIDTH CV 13.5 % 11.5-14.5 N (test code = RDW) RED CELL DISTRIBUTION WIDTH SD 42.2 fL 37.0-54.0 N (test code = RDW-SD) PLATELET COUNT (test code = 281 x10 3/uL 150-400 N PLT) MEAN PLATELET VOLUME (test 9.8 fL 7.0-9.0 H code = MPV) NEUTROPHIL % (test code = NT%) 74.4 % 56.0-77.0 N IMMATURE GRANULOCYTE % (test 0.4 % 0.0-2.0 N code = IG%) LYMPHOCYTE % (test code = LY%) 15.4 % 14.0-32.0 N MONOCYTE % (test code = MO%) 8.3 % 4.8-9.0 N EOSINOPHIL % (test code = EO%) 1.1 % 0.3-3.7 N BASOPHIL % (test code = BA%) 0.4 % 0.0-2.0 N NUCLEATED RBC % (test code = 0.0 % 0-0 N NRBC%) NEUTROPHIL # (test code = NT#) 7.61 x10 3/uL 2.0-7.6 H IMMATURE GRANULOCYTE # (test 0.04 x10 3/uL 0.00-0.03 H code = IG#) LYMPHOCYTE # (test code = LY#) 1.58 x10 3/uL 1.0-3.8 N MONOCYTE # (test code = MO#) 0.85 x10 3/uL 0.1-0.8 H EOSINOPHIL # (test code = EO#) 0.11 x10 3/uL 0.0-0.2 N BASOPHIL # (test code = BA#) 0.04 x10 3/uL 0.0-0.2 N NUCLEATED RBC # (test code = 0.00 x10 3/uL 0.0-0.1 N NRBC#) MANUAL DIFF REQUIRED (test NO code = MDIFF) [id number] 23:03:00 Test Item Value Reference Range Interpretation Comments GLUBED (test code = 122 MG/DL 70-110 H Performe d by certified 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 Recent cholecystectomy COMPARISON: 02/14/18 CT abdomen. TECHNIQUE: Helical imaging was performed diaphragm through the symphysis with multiplanar reconstructions. IV CONTRAST: 100 mL Isovue-300. GI CONTRAST: 10 mL Gastrografin diluted in water. CT imaging performed at [facility] utilizes radiation dose optimization techniques which include one or more of the following: -Automated exposure control -Adjustment of the mA and/or kV according to patient size -Use of iterative reconstruction technique CT Radiation Dose DLP 623 mGy-cm FINDINGS: LOWER CHEST: The lung bases are clear. No pleural fluid bilaterally. LIVER: Stable. GALLBLADDER: There is minimal expected postoperative inflammatory change at the gallbladder fossa. No drainable fluid/biloma or hematoma. There is no intra or extra hepatic biliary ductal dilatation. SPLEEN: Normal. PANCREAS: Normal. ADRENALS: Normal. KIDNEYS: Normal. BOWEL: The colon is distended with air and fecal material suggesting ileus. No small bowel obstruction. Stomach is unremarkable. APPENDIX: Normal. PERITONEUM: Trace volume free intraperitoneal air anteriorly is within normal limits given recent cholecystectomy. No free intraperitoneal fluid. RETROPERITONEUM: No adenopathy. The aorta is normal. PAGE 1 Signed Report (CONTINUED) Name: REZA MAJOR [facility] : 1980 Age/S: 38 / M [address] [place] [address] Blvd Unit #: [id number] Loc: [place] [address] Phys: Herman Younger DO Acct: [id number] Dis Date: Status: REG ER PHONE #: [phone] Exam Date: 09/14/2018 1627 FAX #: [phone] Reason: abd pain ;s/p cholecystectomy this week EXAMS: CPT CODE: [id number] CT ABD PELVIS W/CONT 51033 <Continued> PELVIS: No pelvic mass. The urinary bladder is normal. MUSCULOSKELETAL: No acute abnormality. IMPRESSION: 1. Minimal inflammatory change in the gallbladder fossa consistent with cholecystectomy history. This is also the likely etiology for trace vol ume free intraperitoneal air. There is no biloma or hematoma in the gallbladder fossa and no intra or extrahepatic biliary ductal dilatation. 2. Diffuse colonic distention suggesting ileus. No small bowel obstruction. SL:01 Electr onically Signed by Miles Galdamez on 09/14/2018 at 1658 Reported and signed by: Alfredo Galdamez M.D. CC: Herman Dixon DO Technologist:Marlene Salter RT(R) CTDI: DLP: Trnscb Date/Time: 09/14/2018 (5497) [email or web address] Orig Print D/T: S: 09/14/2018 (3012) PAGE 2 Signed ReportD-DIMER 2018-09-14 15:43:00 Test Item Value Reference Range Interpretation Comments D-DIMER (test 337 ng/mlFEU <=500 N THROMBOSIS AND /OR PULMONARY code = EMBOLISM AND TH E CLINICAL DDIMER) CUT- OFF VALUE FOR EXCLUSION (500 ng/mL FEU) OF THESE CONDITIONSIS VA LIDATED BY THE MANUFACTURE R OF THE METHOD. A NEGAT DERICK D-DIMER RESULT WHEN COM BINED WITH A CLINICALASSESSM ENT OF LOW PRETEST PROBABI LITY HAS BEEN SHOWN TO HAVEA HIGH NEGATIVE PREDICTIVE VALU E OF DVT OR PE. D-DIMER LITTLE UES >500 ng/mL FEU ARE N OT DIAGNOSTIC FOR DVT, PEor D IC WITHOUT OTHER CONFIRMAT ORY TESTS AND APPROPRIATECLIN ICAL EUALUATIONS. COMPREHENSIVE METABOLIC [id number] 15:42:00 Test Item Value Reference Range Interpretation Comments SODIUM (test code = NA) 138 mEq/L 134-147 N POTASSIUM (test code = 3.6 mEq/L 3.4-5.0 N K) CHLORIDE (test code = 104 mEq/L 100-108 N CL) CARBON DIOXIDE (test 28 mEq/L 21-33 N code = CO2) ANION GAP (test code = 10 0-20 N GAP) GLUCOSE (test code = 164 mg/dL 70-110 H GLU) BLOOD UREA NITROGEN 12 mg/dL 7-18 N (test code = BUN) GLOMERULAR FILTRATION 107.6 105-110 N Units of measure = RATE (test code = GFR) ml/mi n/1.73 m2 CREATININE (test code = 0.8 mg/dL 0.6-1.3 N CREAT) TOTAL PROTEIN (test 8.4 g/dL 6.4-8.2 H code = PROT) ALBUMIN (test code = 4.10 g/dL 3.4-5.0 N ALB) CALCIUM (test code = 9.0 mg/dL 8.0-10.5 N CA) BILIRUBIN TOTAL (test 0.50 mg/dL 0.0-1.0 N code = BILT) SGOT/AST (test code = 19 IUnit/L 15-37 N AST) SGPT/ALT (test code = 37 IUnit/L 15-65 N ALT) ALKALINE PHOSPHATASE 153 IUnit/L 20-125 H TOTAL (test code = ALKP) [id number] 15:42:00 Test Item Value Reference Range Interpretation Comments LIPASE (test code = LIP) 78 IUnit/L 73-393 N COMPREHENSIVE METABOLIC [id number] 15:34:00 Test Item Value Reference Range Interpretation Comments SODIUM (test code = NA) 138 mEq/L 134-147 N POTASSIUM (test code = 3.6 mEq/L 3.4-5.0 N K) CHLORIDE (test code = 104 mEq/L 100-108 N CL) CARBON DIOXIDE (test 28 mEq/L 21-33 N code = CO2) ANION GAP (test code = 10 0-20 N GAP) GLUCOSE (test code = 164 mg/dL 70-110 H GLU) BLOOD UREA NITROGEN 12 mg/dL 7-18 N (test code = BUN) GLOMERULAR FILTRATION 107.6 105-110 N Units of measure = RATE (test code = GFR) ml/mi n/1.73 m2 CREATININE (test code = 0.8 mg/dL 0.6-1.3 N CREAT) TOTAL PROTEIN (test g/dL 6.4-8.2 code = PROT) ALBUMIN (test code = 4.10 g/dL 3.4-5.0 N ALB) CALCIUM (test code = 9.0 mg/dL 8.0-10.5 N CA) BILIRUBIN TOTAL (test mg/dL 0.0-1.0 code = BILT) SGOT/AST (test code = 19 IUnit/L 15-37 N AST) SGPT/ALT (test code = 37 IUnit/L 15-65 N ALT) ALKALINE PHOSPHATASE IUnit/L 20-125 TOTAL (test code = ALKP) [id number] 15:34:00 Test Item Value Reference Range Interpretation Comments LIPASE (test code = LIP) 78 IUnit/L 73-393 N CBC W/AUTO [id number] 15:22:00 Test Item Value Reference Range Interpretation Comments WHITE BLOOD CELL (test code = 13.74 x10 3/uL 4.5-11.0 H WBC) RED BLOOD CELL (test code = 4.72 x10 6/uL 4.00-5.60 N RBC) HEMOGLOBIN (test code = HGB) 13.7 g/dL 12.5-16.9 N HEMATOCRIT (test code = HCT) 41.1 % 37.5-50.7 N MEAN CELL VOLUME (test code = 87.1 fL 81.0-99.0 N MCV) MEAN CELL HGB (test code = 29.0 pg 27.0-33.0 N MCH) MEAN CELL HGB CONCETRATION 33.3 g/dL 33.0-37.0 N (test code = MCHC) RED CELL DISTRIBUTION WIDTH CV 13.3 % 11.5-14.5 N (test code = RDW) RED CELL DISTRIBUTION WIDTH SD 42.6 fL 37.0-54.0 N (test code = RDW-SD) PLATELET COUNT (test code = 383 x10 3/uL 150-400 N PLT) MEAN PLATELET VOLUME (test 8.8 fL 7.0-9.0 N code = MPV) NEUTROPHIL % (test code = NT%) 76.3 % 56.0-77.0 N IMMATURE GRANULOCYTE % (test 0.6 % 0.0-2.0 N code = IG%) LYMPHOCYTE % (test code = LY%) 15.2 % 14.0-32.0 N MONOCYTE % (test code = MO%) 6.8 % 4.8-9.0 N EOSINOPHIL % (test code = EO%) 0.7 % 0.3-3.7 N BASOPHIL % (test code = BA%) 0.4 % 0.0-2.0 N NUCLEATED RBC % (test code = 0.0 % 0-0 N NRBC%) NEUTROPHIL # (test code = NT#) 10.50 x10 3/uL 2.0-7.6 H IMMATURE GRANULOCYTE # (test 0.08 x10 3/uL 0.00-0.03 H code = IG#) LYMPHOCYTE # (test code = LY#) 2.09 x10 3/uL 1.0-3.8 N MONOCYTE # (test code = MO#) 0.93 x10 3/uL 0.1-0.8 H EOSINOPHIL # (test code = EO#) 0.09 x10 3/uL 0.0-0.2 N BASOPHIL # (test code = BA#) 0.05 x10 3/uL 0.0-0.2 N NUCLEATED RBC # (test code = 0.00 x10 3/uL 0.0-0.1 N NRBC#) MANUAL DIFF REQUIRED (test NO code = MDCLAUDY) - XR CHEST 2 [id number] 05:34:00 Name: REZA MAJOR [place] : 1980 Age/S: 38 / M [address] [place] Unit #: [id number] Loc: [place] [address] Phys: Julian Rosenbaum MD Acct: [id number] Dis Date: Status: REG ER PHONE #: [phone] Exam Date: 05/26/2018 0515 FAX #: Reason: rib pain EXAMS: CPT: [id number] XR CHEST 2 V 17884 Fluoro Time: DAP (Gy m2): Air Kerma (mGy): AFTER HOURS SERVICE ON: 05/26/2018 5:28 AM Chest, PA and Lateral Location Code M12 History: rib pain Findings: There are no infiltrates. There are no pleural effusions. There is no pneumothorax. Cardiac silhouette and mediastinum appear within normal limits. Impression: No active intrathoracic findings. at 0534 Reported and signed by: Tommy Mar M.D. CC: Julian Rosenbaum MD PAGE 1 Signed Report Name: REZA MAJOR [place] : 1980 Age/S: 38 / M [address] [place] Unit #: [id number] Loc: [place] [address] Phys: Julian Rosenbaum MD Acct: [id number] Dis Date: Status: REG ER PHONE #: [phone] Exam Date: 05/26/2018 0515 FAX #: Reason: rib pain EXAMS: CPT: [id number] XR CHEST 2 V 04889 Fluoro Time: DAP (Gy m2): Air Kerma (mGy): <Continued> Technologist: Raghu Rick RT(R)(CT) Trnscb Date/Time: 05/26/2018 (0534) [email or web address] Orig Print D/T: S: 05/26/2018 (0537) PAGE 2 Signed Report- XR CHEST 2 [id number] 05:34:00 [facility] 1980 Sex: M Name: REZA MAJOR [facility] : 1980 Age/S: 38 / M [address] [place] Unit #: [id number] Loc: [place] [address] Phys: Julian Rosenbaum MD Acct: [id number] Dis Date: Status: UNK PHONE #: [phone] Exam Date: 05/26/2018514 FAX #: Reason:rib pain EXAMS: CPT: [id number] XR CHEST 2 V 50022 Fluoro Time: DAP (Gy m2): Air Kerma (mGy): AFTER HOURS SERVICE ON: 05/26/2018 5:28 AM Chest, PA and Lateral Location Code M12 History: rib pain Findings: There are no infiltrates. There are no pleural effusions. There is no pneumothorax. Cardiac silhouette and mediastinum appear within normal limits. Impression: No active intrathoracic findings. at 0534 Reported and signed by: Tommy Mar M.D. CC: Julian Rosenbaum MD PAGE 1 Signed Report Name: REZA MAJOR [facility] : 1980 Age/S: 38 / M [address] [place] Unit #: [id number] Loc: [place] [address] Phys: Julian Rosenbaum MD Acct: [id number] Dis Date: Status: UNK PHONE #: [phone] Exam Date: 05/26/2018514 FAX #: Reason: rib pain EXAMS: CPT: [id number] XR CHEST 2 V 47424 Fluoro Time: DAP (Gy m2): Air Kerma (mGy): <Continued> Technologist: Raghu Rick RT(R)(CT) Trnscb Date/Time: 05/26/2018 (0534) [email or web address] Orig Print D/T: S: 05/26/2018 (0531) PAGE 2 Signed ReportTROPONIN [id number] 13:09:00 Test Item Value Reference Range Interpretation Comments TROPONIN I (test code = A84) <0.015 ng/mL 0.000-0.045 PRO TIME AND [id number] 12:27:00 Test Item Value Reference Range Interpretation Comments PT (test code = 10.9 s 9.8-13.6 TT) INR (test code = 1.0 INR) INRH (test code = SUGGESTED INRH) THERAPEUTIC RANGE FOR INR: 2.5 - 3.5 For Patients with Prosthetic Valves or Patients with recurrent Thromboembolic Events 2.0 - 3.0 For Most Other Applications PTT (test code = 20.9 s 20.2-38.0 PTT) PTTH (test code = To monitor the PTTH) effectiveness of heparin, we offer the Anti-Xa (Heparin Assay). It can be used for either unfractionated or LMW Heparin. Order Code is ANTI-XA CBC (INCLUDES AUTOMATED DIFFERENTIAL)2017-10-08 12:25:00 Test Item Value Reference Range Interpretation Comments WBC (test code = WBC) 11.1 10\S\3/uL 4.5-11.0 H RBC (test code = RBC) 4.89 10\S\6/uL 4.30-5.70 HGB (test code = HBG) 13.7 g/dL 14.0-18.0 L HCT (test code = HCT) 41.3 % 35.0-46.0 MCV (test code = MCV) 84.5 fL 80.0-94.0 MCH (test code = MCH) 28.0 pg 27.0-31.0 MCHC (test code = MCHC) 33.2 g/dL 32.0-36.0 RDW (test code = RDW) 15.1 % 11.5-14.5 H PLT (test code = PLT) 363 10\S\3/uL 130-400 MPV (test code = MPV) 8.7 fL 9.4-12.4 L NEUTROP # (test code = NE#) 7.9 10\S\3/uL 2.0-8.0 LYMPH # (test code = LY#) 1.8 10\S\3/uL 1.2-4.0 MONOCYTE # (test code = MO#) 0.8 10\S\3/uL 0.0-1.1 EOSINOPH # (test code = EO#) 0.5 10\S\3/uL 0.0-0.7 BASOPHIL # (test code = BA#) 0.1 10\S\3/uL 0.0-0.3 IG # (test code = IG#) 0.04 10\S\3/uL 0.00-0.06 NRBC # (test code = NRBC#) 0.00 10\S\3/uL 0.00-0.01 NEUTROPH % (test code = NE%) 71.5 % 35.0-73.0 LYMPH % (test code = LY%) 16.4 % 20.0-55.0 L MONO % (test code = MO%) 7.0 % 2.5-10.0 EOSINOPH % (test code = EO%) 4.1 % 0.0-5.0 BASOPHIL % (test code = BA%) 0.6 % 0.0-2.0 IG % (test code = IG%) 0.4 % 0.0-0.8 NRBC% (test code = NRBC%) 0.0 % 0.0-0.2 MANDIFF (test code = MDIFF) NO NO RBC MORPH (test code = RBCMOR) NORMAL [id number] 12:23:00 Test Item Value Reference Range Interpretation Comments CPK (test code = 32A) 39 IU/L 39-308 COMPREHENSIVE METABOLIC [id number] 12:23:00 Test Item Value Reference Range Interpretation Comments GLUCOSE (test code = 06D) 245 mg/dL 75-100 H SODIUM (test code = 01A) 139 mmol/L 136-145 POTASSIUM (test code = 01B) 3.4 mmol/L 3.6-5.1 L CHLORIDE (test code = 04A) 105 mmol/L 98-107 CO2 (test code = 02A) 25 mmol/L 22-32 ANION GAP (test code = ANG) 12.4 mmol/L BUN (test code = 05D) 7 mg/dL 7-18 CREATININE (test code = 03E) 0.8 mg/dL 0.7-1.3 BUN/CREA (test code = BCR) 9 12-20 L CALCIUM (test code = 09D) 8.4 mg/dL 8.3-9.5 BILI TOTAL (test code = 11A) 0.2 mg/dL 0.2-1.0 PROTEIN (test code = 07D) 6.7 g/dL 6.4-8.2 ALBUMIN (test code = 08D) 3.3 g/dL 3.5-4.8 L GLOBULIN (test code = GLB) 3.4 g/dL 1.5-3.8 ALB/GLOB (test code = AGRR) 1.0 1.0-2.6 ALK PHOS (test code = 35A) 110 IU/L 42-121 AST (test code = 30A) 11 IU/L <=42 ALT (test code = 31A) 18 IU/L <=78 DRUGS OF [id number] 12:14:00 Test Item Value Reference Range Interpretation Comments DRUG SCRN (test code URINE DRUG SCREEN = HDOA) This is an unconfirmed screening result and should not be used for non-medical purposes CANNABINOD (test code Negative NEGATIVE = 88C) AMPHETAMINE (test Negative NEGATIVE code = 84A) BENZODIAZP (test code Negative NEGATIVE = 86A) BARBITURAT (test code Negative NEGATIVE = 85A) OPIATES (test code = Negative NEGATIVE 92B) COCAINE (test code = Negative NEGATIVE 87A) PHENCYCLID (test code Negative NEGATIVE = 66A) METHADONE (test code Negative NEGATIVE = 64A) DOAH (test code = DOAH) *URINE DRUG SCREEN Cut-off values are as follows: Cannabinoids 50 ng/mL Cocaine 300 ng/mL Amphetamines 1000 ng/mL Phencyclidine 25 ng/mL Benzodiazepines 200 ng.mL Methadone 300 ng/mL Barbiturates 200 ng/mL Opiates 2000 ng/mL [id number] 12:12:00 Test Item Value Reference Range Interpretation Comments COLOR (test code = COLU) YELLOW YELLOW CLARITY (test code = CLA) CLEAR CLEAR GLUCOSE UR (test code = UA GLUCOSE) 3+ NEGATIVE A BILI UR (test code = BILE) NEGATIVE NEGATIVE KETONES UR (test code = ULISSES) NEGATIVE NEGATIVE SP GRAVITY (test code = SPGR) 1.027 1.005-1.030 PH UR (test code = PH) 6.0 4.5-8.0 PROTEIN UR (test code = PU) NEGATIVE NEGATIVE UROBIL UR (test code = UROQ) 0.2 EU/dL 0.2-1.0 NITRITE UR (test code = NITRITE) NEGATIVE NEGATIVE BLOOD UR (test code = UA BLOOD) NEGATIVE NEGATIVE LEUK ES UR (test code = LEUK) NEGATIVE NEGATIVE CT CERVICAL SPINE W/O [id number] 12:07:40Exam: CT C-spine.Location: [id number]: : Unspecified fallTechnique: Unenhanced spiral slices were [...] patent. The surrounding paraspinal soft tissues are nor mal.Impression:Unremarkable exam.CT HEAD W/O [id number] 11:56:11EXAM: CT head without contrastLocation: A1 COMPARISON: NoneINDICATION: [...] mGy-cm CTDI 63 mGyXR CHEST 1 VIEW [id number] 11:52:12EXAM: Portable chest x-rayLocation: [id number]: Chest x-ray on 04/20/17INDICATION: Dizziness, tachycardiaDISCUSSION:No consolidation or pleural effusion is seen. The cardiomediastinal silhouetteis within normal limits. No acute bony abnormalities are identified.IMPRESSION: No evidence of acute abnormality.RAD, ANKLE, MIN 3 VIEWS, [id number] 08:51:00Reason for exam:->FALLReason for exam:->ANKLE PAINShould this be performed at the bedside?->NoFINAL REPORT Ankle, right, three images INDICATION: Fall, ankle pain COMPARISON: None available IMPRESSION: There is soft tissue swelling. There is no evidence of acute fractureor dislocation. The joint spaces are maintained. A small posterior calcaneal spur is present. Signed: Jaz Waterman MDRrafyort Verified Date/Time: 09/28/2017 08:51:13 Reading Location: [facility] Radiology Reading Room RAD, KNEE, COMPLETE (4 VIEWS), [id number] 08:50:00Reason for exam:->FALLReason for exam:->ANKLE PAINShould this be performed at the bedside?->NoFINAL REPORT Knee, right, four images INDICATION: Fall COMPARISON: None available IMPRESSION: There is no evidence of acute fracture or dislocation. There is negligible joint space loss with no significant joint effusion seen. There is mild patellar enthesopathy. The soft tissues are grossly unremarkable. Signed: Jaz Waterman MDReport Verified Date/Time: 09/28/2017 08:50:03 Reading Location: [facility] Radiology Reading Room RAD, FOOT, MIN 3 VIEWS, [id number] 08:45:00Reason for exam:- >FALLReason for exam:->ANKLE PAINShould this be performed at the bedside?->NoFINAL REPORT TECHNIQUE: Frontal, lateral, and oblique radiographs of the right foot dated 09/28/2017 HISTORY: Fall, ankle pain COMPARISON: None. FINDINGS:No fracture or dislocation. Bones are normal in density. No joint space narrowing. Lisfranc joint is well aligned on these nons tress views. No bone erosion or soft tissue nodule seen. No radiodense foreign body or subcutaneous emphysema. IMPRESSION:No fracture or dislocation. Signed: Ariel Hernandezeport Verified Date/Time: 09/28/2017 08:45:31 Reading Location: [facility] Radiology Reading Room - CT ABD PELVIS [id number] 14:49:00[facility] CLE[facility]URNELANDName: REZA [facility]JOR : 1980 Sex: M [facility] [place] : 1980Age/S: 37 / M [address] [place] Unit #: [id number] Loc: [place] [address] Phys: Farida Hamilton MD Acct: [id number] Dis Date: Status: DEP ER PHONE#: [phone] Exam Date: 08/20/2017 1435 FAX #: Reason:abd pain EXAMS: CPT: [id number] CT ABD PELVIS W/CONT 07059 LOCATION CODE: D4 CT ABDOMEN AND PELVIS WITH CONTRAST HISTORY: Abdominal pain COMPARISON: None available TECHNIQUE: Serial axial CT the abdomen and pelvis were obtained from above the diaphragm to the inferior pubic rami post-intravenous contrast. Coronal and sagittal reconstructions are provided. One or more of the following dose reduction techniques were used: Automated exposure control, adjustment of the mA or KV according to patient size, use of Iterative reconstruction technique. DLP 957.3 mGy-cm FINDINGS: The lung bases are clear. The liver, gallbladder, spleen, pancreas, kidneys and adrenal glands appear within normal limits without focal findings. There is no bowel obstruction. The appendix is normal, air-filled. No free intra-abdominal air or fluid. Within the pelvis, urinary bladder is normal. Male pelvic organs are normal appearing. Visualized vascular structures appear within normal limits. Osseous structures demonstrate no focal abnormalities. IMPRESSION: No evidence of acute intra-abdominal or pelvic pathology. at 1449 Reported and signed by: Alexa Light MD CC: Farida Hamilton MD Technologist:Sophia Talley RT(R)(CT) CTDI: DLP: Trnscb Date/Time: 08/20/2017 (4982) Glenn Orig Print D/T: S: 08/20/2017 (0757) PAGE 1 Signed ReportCT STONE PROTOCOL [id number] 17:07:45Renal stone protocol CT of the abdomen [...] 997 mGy*cm.Three 5-mm pulmonary nodules at the lef t lung base are unchanged since theexamination of 6 months ago. Follow-up in one year is recommendedto documenttheir stability.Heart [...] calcifications.The unopacified bowel is unremarkable. Appendix contains inc reased densitywhich may represent inspissated mucus. It is normal in caliber. Pelvic calcifications represent phleboliths. There is no ascites or significantadenopathy.The bony structures are unremarkable.Impression:1. 3 subcentimeter left lower lobe pulmonary nodules which may representgranulomas. Follow-up may be appropriate in one year.2. No renal or ureteral calculi or hydronephrosis.3. Benign-appearing hepatic calcification, unchanged.AMYLASE AND [id number] 16:53:00 Test Item Value Reference Range Interpretation Comments AMYLASE (test code = 10A) 28 U/L 28-100 LIPASE (test code = 60A) 90 IU/L 73-393 COMPREHENSIVE METABOLIC [id number] 16:53:00 Test Item Value Reference Range Interpretation Comments GLUCOSE (test code = 06D) 144 mg/dL 75-100 H SODIUM (test code = 01A) 138 mmol/L 136-145 POTASSIUM (test code = 01B) 3.5 mmol/L 3.6-5.1 L CHLORIDE (test code = 04A) 107 mmol/L 98-107 CO2 (test code = 02A) 23 mmol/L 22-32 ANION GAP (test code = ANG) 11.5 mmol/L BUN (test code = 05D) 5 mg/dL 7-18 L CREATININE (test code = 03E) 0.7 mg/dL 0.7-1.3 BUN/CREA (test code = BCR) 8 12-20 L CALCIUM (test code = 09D) 8.3 mg/dL 8.3-9.5 BILI TOTAL (test code = 11A) 0.2 mg/dL 0.2-1.0 PROTEIN (test code = 07D) 6.6 g/dL 6.4-8.2 ALBUMIN (test code = 08D) 3.1 g/dL 3.5-4.8 L GLOBULIN (test code = GLB) 3.5 g/dL 1.5-3.8 ALB/GLOB (test code = AGRR) 0.9 1.0-2.6 L ALK PHOS (test code = 35A) 95 IU/L 42-121 AST (test code = 30A) 9 IU/L <=42 ALT (test code = 31A) 15 IU/L <=78 DRUGS OF [id number] 16:50:00 Test Item Value Reference Range Interpretation Comments DRUG SCRN (test code URINE DRUG SCREEN = HDOA) This is an unconfirmed screening result and should not be used for non-medical purposes CANNABINOD (test code Negative NEGATIVE = 88C) AMPHETAMINE (test Negative NEGATIVE code = 84A) BENZODIAZP (test code POSITIVE NEGATIVE A = 86A) BARBITURAT (test code Negative NEGATIVE = 85A) OPIATES (test code = POSITIVE NEGATIVE A 92B) COCAINE (test code = Negative NEGATIVE 87A) PHENCYCLID (test code Negative NEGATIVE = 66A) METHADONE (test code Negative NEGATIVE = 64A) DOAH (test code = DOAH) *URINE DRUG SCREEN Cut-off values are as follows: Cannabinoids 50 ng/mL Cocaine 300 ng/mL Amphetamines 1000 ng/mL Phencyclidine 25 ng/mL Benzodiazepines 200 ng.mL Methadone 300 ng/mL Barbiturates 200 ng/mL Opiates 2000 ng/mL PRO TIME AND [id number] 16:45:00 Test Item Value Reference Range Interpretation Comments PT (test code = 10.5 s 9.8-13.6 TT) INR (test code = 0.9 INR) INRH (test code = SUGGESTED INRH) THERAPEUTIC RANGE FOR INR: 2.5 - 3.5 For Patients with Prosthetic Valves or Patients with recurrent Thromboembolic Events 2.0 - 3.0 For Most Other Applications PTT (test code = 28.7 s 20.2-38.0 PTT) PTTH (test code = To monitor the PTTH) effectiveness of heparin, we offer the Anti-Xa (Heparin Assay). It can be used for either unfractionated or LMW Heparin. Order Code is ANTI-XA [id number] 16:39:00 Test Item Value Reference Range Interpretation Comments COLOR (test code = COLU) YELLOW YELLOW CLARITY (test code = CLA) CLEAR CLEAR GLUCOSE UR (test code = UA GLUCOSE) NEGATIVE NEGATIVE BILI UR (test code = BILE) NEGATIVE NEGATIVE KETONES UR (test code = ULISSES) NEGATIVE NEGATIVE SP GRAVITY (test code = SPGR) 1.011 1.005-1.030 PH UR (test code = PH) 6.5 4.5-8.0 PROTEIN UR (test code = PU) NEGATIVE NEGATIVE UROBIL UR (test code = UROQ) 0.2 EU/dL 0.2-1.0 NITRITE UR (test code = NITRITE) NEGATIVE NEGATIVE BLOOD UR (test code = UA BLOOD) NEGATIVE NEGATIVE LEUK ES UR (test code = LEUK) NEGATIVE NEGATIVE CBC (INCLUDES AUTOMATED DIFFERENTIAL)2017-08-19 16:35:00 Test Item Value Reference Range Interpretation Comments WBC (test code = WBC) 8.8 10\S\3/uL 4.5-11.0 RBC (test code = RBC) 4.89 10\S\6/uL 4.30-5.70 HGB (test code = HBG) 13.4 g/dL 14.0-18.0 L HCT (test code = HCT) 40.8 % 35.0-46.0 MCV (test code = MCV) 83.4 fL 80.0-94.0 MCH (test code = MCH) 27.4 pg 27.0-31.0 MCHC (test code = MCHC) 32.8 g/dL 32.0-36.0 RDW (test code = RDW) 14.5 % 11.5-14.5 PLT (test code = PLT) 354 10\S\3/uL 130-400 MPV (test code = MPV) 8.7 fL 9.4-12.4 L NEUTROP # (test code = NE#) 5.3 10\S\3/uL 2.0-8.0 LYMPH # (test code = LY#) 2.5 10\S\3/uL 1.2-4.0 MONOCYTE # (test code = MO#) 0.7 10\S\3/uL 0.0-1.1 EOSINOPH # (test code = EO#) 0.3 10\S\3/uL 0.0-0.7 BASOPHIL # (test code = BA#) 0.1 10\S\3/uL 0.0-0.3 IG # (test code = IG#) 0.01 10\S\3/uL 0.00-0.06 NRBC # (test code = NRBC#) 0.00 10\S\3/uL 0.00-0.01 NEUTROPH % (test code = NE%) 60.3 % 35.0-73.0 LYMPH % (test code = LY%) 27.8 % 20.0-55.0 MONO % (test code = MO%) 7.4 % 2.5-10.0 EOSINOPH % (test code = EO%) 3.6 % 0.0-5.0 BASOPHIL % (test code = BA%) 0.8 % 0.0-2.0 IG % (test code = IG%) 0.1 % 0.0-0.8 NRBC% (test code = NRBC%) 0.0 % 0.0-0.2 MANDIFF (test code = MDIFF) NO NO RBC MORPH (test code = RBCMOR) NORMAL XR SPINE CERVICAL [id number] 13:05:14Cervical spine, 6 viewsLocation code: [id number] history: M54.2: CERVICALGIAComments: AP, oblique, open mouth odontoid and lateral views of the cervicalspine demonstrate no displaced fracture or malalignment. Intervertebral discspaces are maintained. The oblique projections demonstrate no significantforaminal narrowing. The soft tissues are unremarkable. Impression: No acute abnormality.XR FOOT LEFT 1 OR 2 VIEW 2017-04-27 09:35:56EXAMINATION: XR ANKLE LEFT 2 VIEW, XR FOOT LEFT 1 OR 2 VIEW.LOCATION: D4.HISTORY: Pain, stepped wrong.COMPARISON: None.FINDINGS/IMPRESSION:Two views of left ankle demonstrates no soft tissues swelling over medial norlateral malleolus. No radiographic evidence for acute osseous abnormality.Articular spaces are well-maintained. Posterior calcaneal spurring.Two views of left foot demonstrates no dorsal soft tissue swelling. Noradiographic evidence of acute osseous abnormality. Articular spaces are wellm aintained.XR ANKLE LEFT 2 [id number] 09:35:56EXAMINATION: XR ANKLE LEFT 2 VIEW, XR FOOT LEFT 1 OR 2 VIEW.LOCATION: D4.HISTORY: Pain, stepped wrong .COMPARISON: None.FINDINGS/IMPRESSION:Two views of left ankle demonstrates no soft tissues swelling over medial norlateral malleolus. No radiographic evidence for acute osseous abnormality.Articular spaces are well-maintained. Posterior calcaneal spurring.Two views of left foot demonstrates no dorsal soft tissue swelling. Noradiographic evidence of acute osseous abnormality. Articular spaces are wellmaintained.MRA NECK W & WO [id number] 14:42:31MRA OF THE CAROTIDS WITHOUT CONTRASTHISTORY: Near syncopal [...] bilateral common or internalcarotid arteries.MRA HEAD W/O [id number] 14:28:18MRA OF THE [place] WITHOUT CONTRASTHISTORY: Near syncopal episodeTECHNIQUE: [...] No aneurysmal dilatation.MRI BRAIN W/ AND W/O [id number] 13:51:27MRI brain with and without contrastLocation code: [id number] history: Near syncopeTechnique: Multiplanar multisequence MR imaging [...] with and without contrast.GLUCOMETER GLUCOSE- LAB USE [id number] 11:46:00 Test Item Value Reference Range Interpretation Comments GLUCOMETER (test code 161 mg/dL 70-100 H CLEANE D METERMeter ID: = GMG) [id number] tor: 3966 WILFRED RAJU XR ELBOW LEFT COMPLETE 3 [id number] 10:38:15Right Elbow, 3 viewsLocation Code: [id number] HISTORY: Injury, fallCOMMENTS: AP, lateral, and oblique views of the right elbow demonstrate noacute fracture or malalignment. The soft tissues are unremarkable.IMPRESSION: No acute radiographic abnormality.XR CHEST 2 [id number] 10:38:03PA and lateral chest, 2 views.Location code: [id number] HISTORY: Dizziness, fallCOMPARISON: NoneCOMMENTS: The lungs are clear and well inflated. The costophrenic angles aresharp. The cardiomediastinalsilhouette is unremarkable. The bones are intact.IMPRESSION: No acute abnormalityXR SHOULDER LEFT 3 [id number] 10:37:47Left shoulder, 3 viewsLocation Code: [id number] HISTORY: Fall, injury,COMMENTS: AP views in internaland external rotation along with a transscapularY view of the left shoulder were obtained. There is no acute fracture ormalalignment. The soft tissues are unremarkable.IMPRESSION: No acute abnormality.XR HUMERUS LEFT AP & [id number] 10:37:28Left humerus, 2 viewsLocation Code: [id number] history: Trauma, injury, pain Comment: AP and lateralviews of the left humerus demonstrate no displacedfracture or malalignment. The soft tissues are unremarkable.Impression:No acute radiographic abnormality.[id number] 10:36:00 Test Item Value Reference Range Interpretation Comments D-DIMER (test code = <200 ng/mL D-DU 0-234 DDI) D-DIMER COMMENT (test *Level to rule out code = DDCOM) DVT or PE: <235 ng/mL D-DU* COMPREHENSIVE METABOLIC [id number] 10:36:00 Test Item Value Reference Range Interpretation Comments GLUCOSE (test code = 06D) 261 mg/dL 75-100 H SODIUM (test code = 01A) 139 mmol/L 136-145 POTASSIUM (test code = 01B) 3.6 mmol/L 3.6-5.1 CHLORIDE (test code = 04A) 101 mmol/L 98-107 CO2 (test code = 02A) 28 mmol/L 22-32 ANION GAP (test code = ANG) 13.6 mmol/L BUN (test code = 05D) 5 mg/dL 7-18 L CREATININE (test code = 03E) 0.7 mg/dL 0.7-1.3 BUN/CREA (test code = BCR) 8 12-20 L CALCIUM (test code = 09D) 8.5 mg/dL 8.3-9.5 BILI TOTAL (test code = 11A) 0.3 mg/dL 0.2-1.0 PROTEIN (test code = 07D) 6.3 g/dL 6.4-8.2 L ALBUMIN (test code = 08D) 3.2 g/dL 3.5-4.8 L GLOBULIN (test code = GLB) 3.1 g/dL 1.5-3.8 ALB/GLOB (test code = AGRR) 1.0 1.0-2.6 ALK PHOS (test code = 35A) 108 IU/L 42-121 AST (test code = 30A) 11 IU/L <=42 ALT (test code = 31A) 18 IU/L <=78 CARDIAC [id number] 10:19:00 Test Item Value Reference Range Interpretation Comments TROPONIN I (test code = A84) <0.015 ng/mL 0.000-0.045 CKMB (test code = A49) <1.0 ng/mL <=3.6 CPK (test code = 32A) 38 IU/L 39-308 L PRO TIME AND [id number] 10:12:00 Test Item Value Reference Range Interpretation Comments PT (test code = 11.3 s 9.8-13.6 TT) INR (test code = 1.0 INR) INRH (test code = SUGGESTED INRH) THERAPEUTIC RANGE FOR INR: 2.5 - 3.5 For Patients with Prosthetic Valves or Patients with recurrent Thromboembolic Events 2.0 - 3.0 For Most Other Applications PTT (test code = 27.2 s 20.2-38.0 PTT) PTTH (test code = To monitor the PTTH) effectiveness of heparin, we offer the Anti-Xa (Heparin Assay). It can be used for either unfractionated or LMW Heparin. Order Code is ANTI-XA CBC (INCLUDES AUTOMATED DIFFERENTIAL)2017-04-20 10:03:00 Test Item Value Reference Range Interpretation Comments WBC (test code = WBC) 12.0 10\S\3/uL 4.5-11.0 H RBC (test code = RBC) 5.10 10\S\6/uL 4.30-5.70 HGB (test code = HBG) 14.5 g/dL 14.0-18.0 HCT (test code = HCT) 42.7 % 35.0-46.0 MCV (test code = MCV) 83.7 fL 80.0-94.0 MCH (test code = MCH) 28.4 pg 27.0-31.0 MCHC (test code = MCHC) 34.0 g/dL 32.0-36.0 RDW (test code = RDW) 12.7 % 11.5-14.5 PLT (test code = PLT) 374 10\S\3/uL 130-400 MPV (test code = MPV) 8.9 fL 9.4-12.4 L NEUTROP # (test code = NE#) 7.9 10\S\3/uL 2.0-8.0 LYMPH # (test code = LY#) 2.8 10\S\3/uL 1.2-4.0 MONOCYTE # (test code = MO#) 0.7 10\S\3/uL 0.0-1.1 EOSINOPH # (test code = EO#) 0.5 10\S\3/uL 0.0-0.7 BASOPHIL # (test code = BA#) 0.1 10\S\3/uL 0.0-0.3 IG # (test code = IG#) 0.03 10\S\3/uL 0.00-0.06 NRBC # (test code = NRBC#) 0.00 10\S\3/uL 0.00-0.01 NEUTROPH % (test code = NE%) 65.7 % 35.0-73.0 LYMPH % (test code = LY%) 23.5 % 20.0-55.0 MONO % (test code = MO%) 6.2 % 2.5-10.0 EOSINOPH % (test code = EO%) 3.7 % 0.0-5.0 BASOPHIL % (test code = BA%) 0.7 % 0.0-2.0 IG % (test code = IG%) 0.2 % 0.0-0.8 NRBC% (test code = NRBC%) 0.0 % 0.0-0.2 MANDIFF (test code = MDIFF) NO NO RBC MORPH (test code = RBCMOR) NORMAL CT HEAD W/O [id number] 10:02:40CT brain without contrastLocation code: [id number] HISTORY: Dizziness, headache COMPARISON: None.TECHNIQUE: Routine unenhanced [...] aerated.IMPRESSION: No acute intracranial abnormality.DRUGS OF ABUSE *WW* 2017-03-08 14:26:00 Test Item Value Reference Range Interpretation Comments DRUG SCRN (test code URINE DRUG SCREEN = HDOA) This is an unconfirmed screening result and should not be used for non-medical purposes CANNABINOD (test code POSITIVE NEGATIVE A = 88C) AMPHETAMINE (test Negative NEGATIVE code = 84A) BENZODIAZP (test code Negative NEGATIVE = 86A) BARBITURAT (test code Negative NEGATIVE = 85A) OPIATES (test code = Negative NEGATIVE 92B) COCAINE (test code = Negative NEGATIVE 87A) PHENCYCLID (test code Negative NEGATIVE = 66A) METHADONE (test code Negative NEGATIVE = 64A) DOAH (test code = DOAH) *URINE DRUG SCREEN Cut-off values are as follows: Cannabinoids 50 ng/mL Cocaine 300 ng/mL Amphetamines 1000 ng/mL Phencyclidine 25 ng/mL Benzodiazepines 200 ng.mL Methadone 300 ng/mL Barbiturates 200 ng/mL Opiates 2000 ng/mL URINALYSIS 2017-03-08 14:15:00 Test Item Value Reference Range Interpretation Comments COLOR (test code = COLU) YELLOW YELLOW CLARITY (test code = CLA) CLEAR CLEAR GLUCOSE UR (test code = UA GLUCOSE) 3+ NEGATIVE A BILI UR (test code = BILE) NEGATIVE NEGATIVE KETONES UR (test code = ULISSES) NEGATIVE NEGATIVE SP GRAVITY (test code = SPGR) 1.010 1.005-1.030 PH UR (test code = PH) 6.5 4.5-8.0 PROTEIN UR (test code = PU) NEGATIVE NEGATIVE UROBIL UR (test code = UROQ) 0.2 EU/dL 0.2-1.0 NITRITE UR (test code = NITRITE) NEGATIVE NEGATIVE BLOOD UR (test code = UA BLOOD) NEGATIVE NEGATIVE LEUK ES UR (test code = LEUK) NEGATIVE NEGATIVE AUAM (test code = WAUAM) NO NO COMPREHENSIVE METABOLIC PHAM 2017-03-08 14:02:00 Test Item Value Reference Range Interpretation Comments GLUCOSE (test code = 06D) 253 mg/dL 75-100 H SODIUM (test code = 01A) 137 mmol/L 136-145 POTASSIUM (test code = 01B) 3.4 mmol/L 3.6-5.1 L CHLORIDE (test code = 04A) 104 mmol/L 98-107 CO2 (test code = 02A) 23 mmol/L 22-32 ANION GAP (test code = ANG) 13.4 mmol/L BUN (test code = 05D) 6 mg/dL 7-18 L CREATININE (test code = 03E) 0.7 mg/dL 0.7-1.3 BUN/CREA (test code = BCR) 9 12-20 L CALCIUM (test code = 09D) 7.9 mg/dL 8.3-9.5 L BILI TOTAL (test code = 11A) 0.3 mg/dL 0.2-1.0 PROTEIN (test code = 07D) 6.4 g/dL 6.4-8.2 ALBUMIN (test code = 08D) 2.9 g/dL 3.5-4.8 L GLOBULIN (test code = GLB) 3.5 g/dL 1.5-3.8 ALB/GLOB (test code = AGRR) 0.8 1.0-2.6 L ALK PHOS (test code = 35A) 102 IU/L 42-121 AST (test code = 30A) 7 IU/L <=42 ALT (test code = 31A) 13 IU/L <=78 LIPASE SERUM [id number] 13:57:00 Test Item Value Reference Range Interpretation Comments LIPASE (test code = 60A) 81 IU/L 73-393 CBC (INCLUDES AUTOMATED DIFFERENTIAL)*[id number] 13:47:00 Test Item Value Reference Range Interpretation Comments WBC (test code = WBC) 14.4 10\S\3/uL 4.5-11.0 H RBC (test code = RBC) 5.14 10\S\6/uL 4.30-5.70 HGB (test code = HBG) 15.0 g/dL 14.0-18.0 HCT (test code = HCT) 44.6 % 35.0-46.0 MCV (test code = MCV) 86.8 fL 80.0-94.0 MCH (test code = MCH) 29.2 pg 27.0-31.0 MCHC (test code = MCHC) 33.6 g/dL 32.0-36.0 RDW (test code = RDW) 13.0 % 11.5-14.5 PLT (test code = PLT) 409 10\S\3/uL 130-400 H MPV (test code = MPV) 9.1 fL 9.4-12.4 L NEUTROP # (test code = NE#) 10.9 10\S\3/uL 2.0-8.0 H LYMPH # (test code = LY#) 2.3 10\S\3/uL 1.2-4.0 MONOCYTE # (test code = MO#) 0.8 10\S\3/uL 0.0-1.1 EOSINOPH # (test code = EO#) 0.3 10\S\3/uL 0.0-0.7 BASOPHIL # (test code = BA#) 0.1 10\S\3/uL 0.0-0.3 IG # (test code = IG#) 0.05 10\S\3/uL 0.00-0.06 NRBC # (test code = NRBC#) 0.00 10\S\3/uL 0.00-0.01 NEUTROPH % (test code = NE%) 75.4 % 35.0-73.0 H LYMPH % (test code = LY%) 16.2 % 20.0-55.0 L MONO % (test code = MO%) 5.4 % 2.5-10.0 EOSINOPH % (test code = EO%) 2.2 % 0.0-5.0 BASOPHIL % (test code = BA%) 0.5 % 0.0-2.0 IG % (test code = IG%) 0.3 % 0.0-0.8 NRBC% (test code = NRBC%) 0.0 % 0.0-0.2 MANDIFF (test code = WMDIFF) NO NO RBC MORPH (test code = NORMAL WRBCMOR) CT, [id number] 09:15:00Reason for exam:->ABDOMINAL PAINReason for exam:->DIARRHEAReason for exam:->NAUSEAReason for exam:->EMESISWhat is the patient's [...] structures demonstrate mild degenerative change. The liver demon strates a calcified granuloma in the right hepatic [...] MDReport Verified Date/Time: 03/08/2017 09:15:05 Reading Location: [facility] [id number] Ortho Consult Reading Room BASIC METABOLIC [id number] 08:21:00 Test Item Value Reference Range Interpretation Comments SODIUM (BEAKER) 138 meq/L 135-148 (test code = 381) POTASSIUM (BEAKER) 3.9 meq/L 3.6-5.5 (test code = 379) CHLORIDE (BEAKER) 108 meq/L 98-106 H (test code = 382) CO2 (BEAKER) (test 24 meq/L 24-32 code = 355) BLOOD UREA NITROGEN 7 mg/dL 10-26 L (BEAKER) (test code = 354) CREATININE (BEAKER) 0.56 mg/dL 0.50-1.20 (test code = 358) GLUCOSE RANDOM 138 mg/dL 70-110 H (BEAKER) (test code = 652) CALCIUM (BEAKER) 8.9 mg/dL 8.5-10.5 (test code = 697) EGFR (BEAKER) (test 163 mL/min/1.73 ESTIM ATED GFR IS code = 1092) sq m NOT ACCURATE CREATININE CLEARANCE IN PREDICTING GLOMERULAR FILTRATION RATE . ESTIMATED GFR I S NOT APPLICABLE FOR DIALYSIS PATIEN TS. AST (SGOT)2017-03-08 08:18:00 Test Item Value Reference Range Interpretation Comments AST (SGOT) (BEAKER) (test code = 353) 11 U/L 5-40 ALT (SGPT)2017-03-08 08:18:00 Test Item Value Reference Range Interpretation Comments ALT (SGPT) (BEAKER) (test code = 347) 21 U/L 5-50 [id number] 08:18:00 Test Item Value Reference Range Interpretation Comments LIPASE (BEAKER) (test code = 749) 37 U/L 40-240 L BILIRUBIN, ADULT [id number] 08:16:00 Test Item Value Reference Range Interpretation Comments BILIRUBIN TOTAL (BEAKER) (test code 0.3 mg/dL 0.1-1.2 = 377) CBC W/PLT COUNT & AUTO [id number] 08:13:00 Test Item Value Reference Range Interpretation Comments WHITE BLOOD CELL COUNT (BEAKER) 13.1 10e3/ L 4.0-10.0 H (test code = 775) RED BLOOD CELL COUNT (BEAKER) 4.85 10e6/ L 4.20-5.80 (test code = 761) HEMOGLOBIN (BEAKER) (test code 13.9 g/dL 13.0-16.8 = 410) HEMATOCRIT (BEAKER) (test code 42.8 % 40.0-50.0 = 411) MEAN CORPUSCULAR VOLUME 88.3 fL 82.0-98.0 (BEAKER) (test code = 753) MEAN CORPUSCULAR HEMOGLOBIN 28.6 pg 27.0-33.0 (BEAKER) (test code = 751) MEAN CORPUSCULAR HEMOGLOBIN 32.4 g/dL 32.0-36.0 CONC (BEAKER) (test code = 752) RED CELL DISTRIBUTION WIDTH 13.2 % 10.3-14.2 (BEAKER) (test code = 412) PLATELET COUNT (BEAKER) (test 366 10e3/ L 150-430 code = 756) MEAN PLATELET VOLUME (BEAKER) 6.9 fL 6.5-10.5 (test code = 754) NEUTROPHILS RELATIVE PERCENT 77 % (BEAKER) (test code = 429) LYMPHOCYTES RELATIVE PERCENT 12 % (BEAKER) (test code = 430) MONOCYTES RELATIVE PERCENT 6 % (BEAKER) (test code = 431) EOSINOPHILS RELATIVE PERCENT 4 % (BEAKER) (test code = 432) BASOPHILS RELATIVE PERCENT 1 % (BEAKER) (test code = 437) NEUTROPHILS ABSOLUTE COUNT 10.10 10e3/ L 1.80-8.00 H (BEAKER) (test code = 670) LYMPHOCYTES ABSOLUTE COUNT 1.61 10e3/ L 1.48-4.50 (BEAKER) (test code = 414) MONOCYTES ABSOLUTE COUNT 0.83 10e3/ L 0.00-1.30 (BEAKER) (test code = 415) EOSINOPHILS ABSOLUTE COUNT 0.46 10e3/ L 0.00-0.50 (BEAKER) (test code = 416) BASOPHILS ABSOLUTE COUNT 0.10 10e3/ L 0.00-0.20 (BEAKER) (test code = 417) RAD, FOOT, MIN 3 VIEWS, [id number] 08:37:00Reason for exam:->FOOT INJURYleft foot injury , horse stepped on it this morningFINAL REPORT TECHNIQUE: Frontal, oblique, and lateral views of the left foot. INDICATION: 37-year-old man after foot injury. COMPARISON: None. FINDINGS:No acute fractures or dislocations.Joint spaces are within normal limits.Soft tissues are grossly unremarkable. IMPRESSION:No acute osseous abnormalities of the left foot. Signed: Elsa Meridaeport Verified Date/Time: 02/25/2017 08:37:49 Reading Location: [facility] C013Y CT Body Reading Room CT ABDOMEN AND PELVIS WITH CONTRAST*WW*2017-02-25 03:54:12CT ABDOMEN AND PELVIS WITH CONTRAST*WW*Location:[address] hours services are provided 02/25/2017 2:48 AM Indication:RLQ pain.Comparison: Not availableTechnique: Axial CT of the abdomen and pelvis followingthe bolusadministration of nonionic intravenous contrast. Sagittal and coronalreformatted images areprovided for interpretation. All CT scans at [facility] use dose modulation, iterative reconstruction, and or weight-baseddosing when appropriate to reduce radiation dose to as low as reasonablyachievable.Findings:Lower thorax: The lung bases are clear.Hepatobiliary:The liver is normal in size and density. Nonspecificcalcification is identified within the right hepatic lobe. No hepatic mass,intrahepatic biliary duct dilation or perihepatic fluid collection. Thegallbladder is normal.Spleen, pancreas and adrenal glands:NormalUrogenital:The kidneys are normal in size and density with no focal mass,hydronephrosis or stone. The ureters are normal in course and caliber. Theurinary bladder appears unremarkable. Reproductive organs are normal inappearance.Gastrointestinal:The bowel is normal in course and caliber. No free air or freefluid. The appendix is normal.Lymph nodes and retroperitoneum:No adenopathy or retroperitoneal mass.Vasculature:No acute abnormality.Bones and soft tissues:No acute abnormality.Impression:The appendix is normal with no acute intra-abdominal or pelvicabnormality.AMYLASE AND LIPASE *WW*2017-02-25 02:53:00 Test Item Value Reference Range Interpretation Comments AMYLASE (test code = 10A) 26 U/L 28-100 L LIPASE (test code = 60A) 106 IU/L 73-393 COMPREHENSIVE METABOLIC PHAM *WW*2017-02-25 02:53:00 Test Item Value Reference Range Interpretation Comments GLUCOSE (test code = 06D) 171 mg/dL 75-100 H SODIUM (test code = 01A) 141 mmol/L 136-145 POTASSIUM (test code = 01B) 3.4 mmol/L 3.6-5.1 L CHLORIDE (test code = 04A) 109 mmol/L 98-107 H CO2 (test code = 02A) 23 mmol/L 22-32 ANION GAP (test code = ANG) 12.4 mmol/L BUN (test code = 05D) 2 mg/dL 7-18 L CREATININE (test code = 03E) 0.7 mg/dL 0.7-1.3 BUN/CREA (test code = BCR) 3 12-20 L CALCIUM (test code = 09D) 8.0 mg/dL 8.3-9.5 L BILI TOTAL (test code = 11A) 0.3 mg/dL 0.2-1.0 PROTEIN (test code = 07D) 5.9 g/dL 6.4-8.2 L ALBUMIN (test code = 08D) 2.8 g/dL 3.5-4.8 L GLOBULIN (test code = GLB) 3.1 g/dL 1.5-3.8 ALB/GLOB (test code = AGRR) 0.9 1.0-2.6 L ALK PHOS (test code = 35A) 81 IU/L 42-121 AST (test code = 30A) 12 IU/L <=42 ALT (test code = 31A) 13 IU/L <=78 PRO TIME AND PTT *WW*2017-02-25 02:32:00 Test Item Value Reference Range Interpretation Comments PT (test code = 11.9 s 9.8-13.6 TT) INR (test code = 1.1 INR) INRH (test code = SUGGESTED INRH) THERAPEUTIC RANGE FOR INR: 2.5 - 3.5 For Patients with Prosthetic Valves or Patients with recurrent Thromboembolic Events 2.0 - 3.0 For Most Other Applications PTT (test code = 26.7 s 20.2-38.0 PTT) PTTH (test code = To monitor the PTTH) effectiveness of heparin, we offer the Anti-Xa (Heparin Assay). It can be used for either unfractionated or LMW Heparin. Order Code is ANTI-XA URINALYSIS *WW*2017-02-25 02:18:00 Test Item Value Reference Range Interpretation Comments COLOR (test code = COLU) YELLOW YELLOW CLARITY (test code = CLA) CLEAR CLEAR GLUCOSE UR (test code = UA GLUCOSE) NEGATIVE NEGATIVE BILI UR (test code = BILE) NEGATIVE NEGATIVE KETONES UR (test code = ULISSES) NEGATIVE NEGATIVE SP GRAVITY (test code = SPGR) 1.010 1.005-1.030 PH UR (test code = PH) 6.0 4.5-8.0 PROTEIN UR (test code = PU) NEGATIVE NEGATIVE UROBIL UR (test code = UROQ) 0.2 EU/dL 0.2-1.0 NITRITE UR (test code = NITRITE) NEGATIVE NEGATIVE BLOOD UR (test code = UA BLOOD) NEGATIVE NEGATIVE LEUK ES UR (test code = LEUK) NEGATIVE NEGATIVE AUAM (test code = WAUAM) NO NO CBC (INCLUDES AUTOMATED DIFFERENTIAL)*[id number] 02:15:00 Test Item Value Reference Range Interpretation Comments WBC (test code = WBC) 11.7 10\S\3/uL 4.5-11.0 H RBC (test code = RBC) 4.73 10\S\6/uL 4.30-5.70 HGB (test code = HBG) 13.6 g/dL 14.0-18.0 L HCT (test code = HCT) 41.3 % 35.0-46.0 MCV (test code = MCV) 87.3 fL 80.0-94.0 MCH (test code = MCH) 28.8 pg 27.0-31.0 MCHC (test code = MCHC) 32.9 g/dL 32.0-36.0 RDW (test code = RDW) 12.9 % 11.5-14.5 PLT (test code = PLT) 339 10\S\3/uL 130-400 MPV (test code = MPV) 9.3 fL 9.4-12.4 L NEUTROP # (test code = NE#) 6.5 10\S\3/uL 2.0-8.0 LYMPH # (test code = LY#) 3.8 10\S\3/uL 1.2-4.0 MONOCYTE # (test code = MO#) 0.8 10\S\3/uL 0.0-1.1 EOSINOPH # (test code = EO#) 0.4 10\S\3/uL 0.0-0.7 BASOPHIL # (test code = BA#) 0.1 10\S\3/uL 0.0-0.3 IG # (test code = IG#) 0.04 10\S\3/uL 0.00-0.06 NRBC # (test code = NRBC#) 0.00 10\S\3/uL 0.00-0.01 NEUTROPH % (test code = NE%) 55.8 % 35.0-73.0 LYMPH % (test code = LY%) 32.4 % 20.0-55.0 MONO % (test code = MO%) 7.1 % 2.5-10.0 EOSINOPH % (test code = EO%) 3.7 % 0.0-5.0 BASOPHIL % (test code = BA%) 0.7 % 0.0-2.0 IG % (test code = IG%) 0.3 % 0.0-0.8 NRBC% (test code = NRBC%) 0.0 % 0.0-0.2 MANDIFF (test code = WMDIFF) NO NO RBC MORPH (test code = NORMAL WRBCMOR) RAPID DRUG SCREEN, [id number] 20:58:00 Test Item Value Reference Range Interpretation Comments BARBITURATE URINE (BEAKER) (test Negative Negative code = 725) BENZODIAZEPINE SCREEN URINE (BEAKER) Negative Negative (test code = 726) COCAINE (METAB.) SCREEN (BEAKER) Negative Negative (test code = 1164) METHADONE SCREEN (BEAKER) (test code Negative Negative = 1436) OPIATE SCREEN URINE (BEAKER) (test Positive Negative A code = 734) CANNABINOID SCREEN URINE (BEAKER) Positive Negative A (test code = 727) AMPH/METHAMPH SCREEN (BEAKER) (test Negative Negative code = 1438) PHENCYCLIDINE SCREEN URINE (BEAKER) Negative Negative (test code = 608) DRUG CUTOFF CONC.Cocaine 300 ng/mL Cannabinoid 50 ng/mLBenzodiazepine 200 ng/mLBarbiturate 200 ng/mLPhencyclidine 25 ng/mLOpiate 300 ng/mLMethadone 300 ng/mLAmphetamine/ 1000 ng/mL MethamphetamineThis assay provides an unconfirmed qualitative test result for the clinical management of patients in emergency situations. Chain of custody not maintained. Some gcou-scy-dpqftki medications, as well as adulterants, may cause inaccurate results. Clinical correlation should be applied. A more comprehensivedrug screen or confirmation of a detected drug may be performed upon request.URINALYSIS W/ MICROSCOPIC 2017-01-19 20:27:00 Test Item Value Reference Range Interpretation Comments COLOR (BEAKER) (test code = 470) Light Yellow CLARITY (BEAKER) (test code = Clear 469) SPECIFIC GRAVITY UA (BEAKER) 1.016 1.001-1.035 (test code = 468) PH UA (BEAKER) (test code = 467) 6.0 5.0-8.0 PROTEIN UA (BEAKER) (test code = Negative Negative 464) GLUCOSE UA (BEAKER) (test code = >500 mg/dL Negative A 365) KETONES UA (BEAKER) (test code = Negative Negative 371) BILIRUBIN UA (BEAKER) (test code Negative Negative = 462) BLOOD UA (BEAKER) (test code = Negative Negative 461) NITRITE UA (BEAKER) (test code = Negative Negative 465) LEUKOCYTE ESTERASE UA (BEAKER) Negative Negative (test code = 466) UROBILINOGEN UA (BEAKER) (test < mg/dL 0.2-1.0 code = 463) RBC UA (BEAKER) (test code = < /HPF 519) WBC UA (BEAKER) (test code = 0 /HPF 520) BACTERIA (BEAKER) (test code = Rare 517) MUCUS (BEAKER) (test code = Rare 1574) SOURCE(BEAKER) (test code = 2795) KETONE, [id number] 20:12:00 Test Item Value Reference Range Interpretation Comments KETONES, BLOOD (BEAKER) (test code 0.0 mmol/L <0.4 = 1103) POCT-GLUCOSE [id number] 20:08:00 Test Item Value Reference Range Interpretation Comments POC-GLUCOSE METER 241 mg/dL 70-110 H TESTED AT [facility] [address] (BEAKER) (test code [facility] = 1538) [place] [address] BLOOD GAS, [id number] 20:05:00 Test Item Value Reference Range Interpretation Comments PH VENOUS (BEAKER) (test code = 7.42 7.32-7.42 701) PCO2 VENOUS (BEAKER) (test code = 36 mmHg 41-51 L 755) PO2 VENOUS (BEAKER) (test code = 43 mmHg 25-40 H 702) O2 SATURATION VENOUS (BEAKER) 80.3 % 40.0-70.0 H (test code = 703) HCO3 VENOUS (BEAKER) (test code = 23 mmol/L 21-29 705) BASE EXCESS VENOUS (BEAKER) (test -1.4 mmol/L -2.0-3.0 code = 704) PATIENT TEMPERATURE (BEAKER) 36.7 C (test code = 1818) CREATINE KINASE (CK), TOTAL AND [id number] 20:05:00 Test Item Value Reference Range Interpretation Comments CREATINE KINASE TOTAL (BEAKER) 57 U/L 30-300 (test code = 380) CREATINE KINASE-MB (BEAKER) (test 0.6 ng/mL 0.0-4.9 code = 750) CREATINE KINASE-MB INDEX (BEAKER) 1.1 % (test code = 395) CK-MB Reference Range:<5 Normal5-10 Borderline>10 AbnormalTROPONIN I 2017-01-19 20:05:00 Test Item Value Reference Range Interpretation Comments TROPONIN I (BEAKER) (test code = 397) < ng/mL 0.00-0.15 Troponin I (TnI) levels [...] disease, and persistent tachyarrhythmia.B-TYPE NATRIURETIC FACTOR (BNP) 2017-01-19 20:04:00 Test Item Value Reference Range Interpretation Comments B-TYPE NATRIURETIC PEPTIDE (BEAKER) < pg/mL 0-100 (test code = 700) [id number] 19:59:00 Test Item Value Reference Range Interpretation Comments D-DIMER QUANTITATIVE (BEAKER) < MG/L FEU <0.50 (test code = 671) Intended Use: The D-Dimer Assay can be used to aid in the diagnosis of Deep Vein Thrombosis (DVT) and Pulmonary Embolism Disease (PED).In patients with low pre- test probability, various studies concerning STA Liatest D-dimer test have reported that with a cutoff value of 0.50 MG/L FEU, the Negative Predictive Value (NPV) regarding the exclusion of thrombosis is within 95-100% range.RAD, CHEST, 1 VIEW, NON [id number] 19:59:00Reason for exam:->cpShould this be performed at the bedside?->YesFINAL REPORT Clinical History: cp Comparison Study: None Findings: The heartand lungs are within normal limits. The pleural spaces are clear. No significant bony or soft tissu e abnormalities are seen. Impression: No active cardiopulmonary disease. Signed: Leslie Duval Verified Date/Time: 01/19/2017 19:59:25 Reading Location: [address] Consult Reading Room COMPREHENSIVE METABOLIC [id number] 19:58:00 Test Item Value Reference Range Interpretation Comments TOTAL PROTEIN 6.7 gm/dL 6.0-8.5 Specimen moder ately (BEAKER) (test code = hemoly zed 770) ALBUMIN (BEAKER) 3.5 g/dL 3.5-5.0 Specimen mo derately (test code = 1145) hemolyzed ALKALINE PHOSPHATASE 84 U/L 30-115 (BEAKER) (test code = 346) BILIRUBIN TOTAL 0.2 mg/dL 0.1-1.3 Specimen mod erately (BEAKER) (test code = hemoly zed 377) SODIUM (BEAKER) (test 138 meq/L 135-148 code = 381) POTASSIUM (BEAKER) 3.8 meq/L 3.5-5.5 Specimen moderately (test code = 379) hemolyzed CHLORIDE (BEAKER) 106 meq/L 98-106 (test code = 382) CO2 (BEAKER) (test 21 meq/L 20-31 code = 355) BLOOD UREA NITROGEN 6 mg/dL 10-26 L (BEAKER) (test code = 354) CREATININE (BEAKER) 0.84 mg/dL 0.50-1.20 Specimen moderately (test code = 358) hemolyzed GLUCOSE RANDOM 289 mg/dL 70-110 H (BEAKER) (test code = 652) CALCIUM (BEAKER) 8.8 mg/dL 8.5-10.5 (test code = 697) AST (SGOT) (BEAKER) 20 U/L 5-40 Specimen moderately (test code = 353) hemolyzed ALT (SGPT) (BEAKER) 13 U/L 6-50 Specimen moderately (test code = 347) hemolyzed EGFR (BEAKER) (test 103 ESTIMATE D GFR IS code = 1092) mL/min/1.73 sq NOT ACCURA TE m CREATININE CLEARANCE IN PREDICTING GLOMERULAR FILTRATION RATE . ESTIMATED GFR I S NOT APPLICABLE FOR DIALYSIS PATIEN TS. CBC W/PLT COUNT & AUTO [id number] 19:42:00 Test Item Value Reference Range Interpretation Comments WHITE BLOOD CELL COUNT (BEAKER) 12.4 K/ L 4.0-10.0 H (test code = 775) RED BLOOD CELL COUNT (BEAKER) 4.98 M/ L 4.20-5.80 (test code = 761) HEMOGLOBIN (BEAKER) (test code = 14.4 GM/DL 13.0-16.8 410) HEMATOCRIT (BEAKER) (test code = 43.5 % 40.0-50.0 411) MEAN CORPUSCULAR VOLUME (BEAKER) 87.4 fL 82.0-98.0 (test code = 753) MEAN CORPUSCULAR HEMOGLOBIN 28.8 pg 27.0-33.0 (BEAKER) (test code = 751) MEAN CORPUSCULAR HEMOGLOBIN CONC 33.0 GM/DL 32.0-36.0 (BEAKER) (test code = 752) RED CELL DISTRIBUTION WIDTH 13.9 % 12.0-15.0 (BEAKER) (test code = 412) PLATELET COUNT (BEAKER) (test 313 K/CU MM 150-430 code = 756) MEAN PLATELET VOLUME (BEAKER) 8.6 fL 6.5-10.5 (test code = 754) NUCLEATED RED BLOOD CELLS 0 /100 WBC 0-0 (BEAKER) (test code = 413) NEUTROPHILS RELATIVE PERCENT 60 % (BEAKER) (test code = 429) LYMPHOCYTES RELATIVE PERCENT 29 % (BEAKER) (test code = 430) MONOCYTES RELATIVE PERCENT 7 % (BEAKER) (test code = 431) EOSINOPHILS RELATIVE PERCENT 3 % (BEAKER) (test code = 432) BASOPHILS RELATIVE PERCENT 1 % (BEAKER) (test code = 437) NEUTROPHILS ABSOLUTE COUNT 7.40 K/ L 1.80-8.00 (BEAKER) (test code = 670) LYMPHOCYTES ABSOLUTE COUNT 3.60 K/ L 1.48-4.50 (BEAKER) (test code = 414) MONOCYTES ABSOLUTE COUNT (BEAKER) 0.80 K/ L 0.00-1.30 (test code = 415) EOSINOPHILS ABSOLUTE COUNT 0.40 K/ L 0.00-0.50 (BEAKER) (test code = 416) BASOPHILS ABSOLUTE COUNT (BEAKER) 0.20 K/ L 0.00-0.20 (test code = 417) POCT-GLUCOSE [id number] 19:02:00 Test Item Value Reference Range Interpretation Comments POC-GLUCOSE METER 367 mg/dL 70-110 H TESTED AT [facility] [address] (BEAKER) (test code [facility] = [address]38) [place] [address] CT, SPINE, CERVICAL, WO [id number] 18:25:00Reason for exam:->NECK PAINWhat is the patient's [...] Mild straightening of normal cervical lordosis. Signed: Mino Mittal MDReport Verified Date/Time: 01/15/2017 18:25:26 Reading Location: [address] Reading Room Electronically signed by: MINO MITTAL M.D.on 01/15/2017 06:25 PMCT, BRAIN, WITHOUT [id number] 18:14:00Reason for exam:->NECK PAINWhat is the patient's sedation requirement?->No SedationFINAL REPORT EXAMINATION NONCONTRAST HEAD CT SCAN [...] abnormal extra-axial fluid collection. The orbits are unre markable. The visualized paranasal sinuses, tympanic cavities and mastoid air cells are pneumatized.IMPRESSION: No specific evidence of an acute cranial process. MRI could be performed for further evaluation if warranted. Signed: Mino Mittal MDReport Verified Date/Time: 01/15/2017 18:14:13 Reading Location: [address] Reading Room XR KNEE RIGHT 3 [id number] 22:22:15EXAM: Portable right knee series, 3 viewsLocation: [id number]: Fell on right knee and twisted right kneeCOMPARISON: None.DISCUSSION: Frontal, oblique, and crosstable lateral views of the right kneeare submitted. No fracture, dislocation, lytic or blastic lesions areidentified. Joint spaces appear well preserved. No joint effusion is seen.IMPRESSION:No acute bony abnormalities.XR ANKLE RIGHT COMPLETE 3 [id number] 22:21:22EXAM: Right ankle series, 3 viewsLocation: [id number]: Fell, twisted right ankleCOMPARISON: None.D ISCUSSION: Frontal, oblique, and lateral views of the right ankle aresubmitted. There is a questionable hairline fracture of the distal fibula, onlyseen on the oblique view near the ankle mortise. No other evidence of fractureis seen.IMPRESSION: Questionable hairline fracture of the distal fibula.RAPID DRUG SCREEN, [id number] 23:10:00 Test Item Value Reference Range Interpretation Comments BARBITURATE URINE (BEAKER) (test Negative Negative code = 725) BENZODIAZEPINE SCREEN URINE (BEAKER) Negative Negative (test code = 726) COCAINE (METAB.) SCREEN (BEAKER) Negative Negative (test code = 1164) METHADONE SCREEN (BEAKER) (test code Negative Negative = 1436) OPIATE SCREEN URINE (BEAKER) (test Positive Negative A code = 734) CANNABINOID SCREEN URINE (BEAKER) Negative Negative (test code = 727) AMPH/METHAMPH SCREEN (BEAKER) (test Negative Negative code = 1438) PHENCYCLIDINE SCREEN URINE (BEAKER) Negative Negative (test code = 608) DRUG CUTOFF CONC.Cocaine 300 ng/mL Cannabinoid 50 ng/mLBenzodiazepine 200 ng/mLBarbiturate 200 ng/mLPhencyclidine 25 ng/mLOpiate 300 ng/mLMethadone 300 ng/mLAmphetamine/ 1000 ng/mL MethamphetamineThis assay provides an unconfirmed qualitative test result for the clinical management of patients in emergency situations. Chain of custody not maintained. Some fzzt-kbv-pqnrrlw medications, as well as adulterants, may cause inaccurate results. Clinical correlation should be applied. A more comprehensivedrug screen or confirmation of a detected drug may be performed upon request.URINALYSIS W/ MICROSCOPIC 2016-12-12 22:55:00 Test Item Value Reference Range Interpretation Comments COLOR (BEAKER) (test code = 470) Yellow CLARITY (BEAKER) (test code = 469) Clear SPECIFIC GRAVITY UA (BEAKER) (test 1.025 1.001-1.035 code = 468) PH UA (BEAKER) (test code = 467) 6.0 5.0-8.0 PROTEIN UA (BEAKER) (test code = Negative Negative 464) GLUCOSE UA (BEAKER) (test code = Negative Negative 365) KETONES UA (BEAKER) (test code = Negative Negative 371) BILIRUBIN UA (BEAKER) (test code = Negative Negative 462) BLOOD UA (BEAKER) (test code = Negative Negative 461) NITRITE UA (BEAKER) (test code = Negative Negative 465) LEUKOCYTE ESTERASE UA (BEAKER) Negative Negative (test code = 466) UROBILINOGEN UA (BEAKER) (test 0.2 mg/dL 0.2-1.0 code = 463) BACTERIA (BEAKER) (test code = Occasional 517) MUCUS (BEAKER) (test code = 1574) Many RBC UA-MANUAL (BEAKER) (test code <5 /HPF = 1659) WBC UA-MANUAL (BEAKER) (test code <5 /HPF = 1661) SQUAMOUS EPITHELIAL MANUAL <5 /HPF (BEAKER) (test code = 1663) SOURCE(BEAKER) (test code = 2795) XR SHOULDER LEFT 3 [id number] 09:00:14EXAMINATION: XR SHOULDER LEFT 3 VIEWS.LOCATION: D4.HISTORY: shoulder pain while carrying heavy load.COMPARISON: Left shoulder x-ray 04/16/2015.FINDINGS/IMPRESSION:Three views of left shoulder demonstrates acute osseous abnormality. Nodislocation. Left clavicle appears intact. Visualized left lung parenchymaappears unremarkable.
[2020-08-12] MEDS ORDERED: HYDROCODONE/APAP 10/325 TAB ONE (23:23)
[2020-08-12] MEDS ORDERED: DIAZEPAM 5 MG TABLET ONE (23:23)
--- NOTE | 2020-08-13 | ER ---
Nurse's Notes [facility] Name: Adria Guallpa Jr Age: 40 yrs Sex: Male : 1980 Arrival Date: 08/12/2020 Time: 22:08 Bed 25 Private MD: Diagnosis: Fall (on) (from) other stairs and steps-off horse;Pain in left shoulder;Strain of muscle, fascia and tendon at neck level Presentation: 08/12 22:19 Chief complaint: Patient states: was thrown off his horse yesterday, fell onto left iw shoulder and elbow, states his shoulder was dislocated but he popped it back in place, still has a lot of pain in elbow and from left side of neck into his armpit is hurting. Denies LOC but got dazed. Coronavirus screen: At this time, the client does not indicate any symptoms associated with coronavirus-19. Ebola Screen: Patient negative for fever greater than or equal to 101.5 degrees Fahrenheit, and additional compatible Ebola Virus Disease symptoms Patient denies exposure to infectious person. Patient denies travel to an Ebola-affected area in the 21 days before illness onset. No symptoms or risks identified at this time. Initial Sepsis Screen: Does the patient meet any 2 criteria? No. Patient's initial sepsis screen is negative. Does the patient have a suspected source of infection? No. Patient's initial sepsis screen is negative. Risk Assessment: Do you want to hurt yourself or someone else? Patient reports no desire to harm self or others. Onset of symptoms was August 11, 2020. 22:19 Method Of Arrival: Ambulatory iw 22:19 Acuity: DAVE 4 iw Triage Assessment: 23:12 Injury Description: fell off horse. zb Historical: - Allergies: 22:22 Demerol; iw 22:22 Flexeril; iw 22:22 Ibuprofen; iw 22:22 Toradol; iw - Home Meds: 22:22 None [Active]; iw - PMHx: 22:22 Chronic pain; Diabetes - NIDDM; GALLSTONES; Myocardial infarction; iw - PSHx: 22:22 right eye sx; Cholecystectomy; iw - Immunization history:: Adult Immunizations not up to date. - Social history:: Smoking status: Patient reports the use of cigarette tobacco products, smokes two packs cigarettes per day. - Family history:: not pertinent. Screenin:03 Abuse screen: Denies threats or abuse. Denies injuries from another. Nutritional zb screening: No deficits noted. Tuberculosis screening: No symptoms or risk factors identified. Fall Risk None identified. Assessment: 23:04 General: Appears in no apparent distress. uncomfortable, Behavior is calm, cooperative, zb appropriate for age. Pain: Complains of pain in left shoulder Pain currently is 10 out of 10 on a pain scale. Quality of pain is described as aching, pressure, throbbing. Neuro: Level of Consciousness is awake, alert, obeys commands, Oriented to person, place, time, situation. Cardiovascular: Capillary refill < 3 seconds Patient's skin is warm and dry. Respiratory: Airway is patent Trachea midline Respiratory effort is even, unlabored, Respiratory pattern is regular, symmetrical. GI: No deficits noted. : No deficits noted. Derm: Skin is intact, is healthy with good turgor. Musculoskeletal: Range of motion: limited in left shoulder. 23:12 Reassessment: x-ray at bedside. zb Vital Signs: 22:19 BP 139 / 92; Pulse 86; Resp 16; Temp 97.9; Pulse Ox 100% on R/A; Weight 97.52 kg; iw Height 5 ft. 10 in. (177.80 cm); Pain 9/10; 08/13 00:10 BP 125 / 80; Pulse 81; Resp 16; Pulse Ox 99% ; jm8 08/12 22:19 Body Mass Index 30.85 (97.52 kg, 177.80 cm) iw ED Course: 08/12 22:08 Patient arrived in ED. bp1 22:21 Triage completed. iw 22:22 Arm band placed on. iw 22:44 Jin Mace MD is Attending Physician. sabina 23:03 Ale Brady, APPLE is Primary Nurse. zb 23:05 Patient has correct armband on for positive identification. Bed in low position. Call zb light in reach. Side rails up X 1. Pulse ox on. NIBP on. Door closed. Noise minimized. Verbal reassurance given. 23:24 Shoulder Left (2 View) XRAY In Process Unspecified. EDMS 23:38 CT C Spine In Process Unspecified. EDMS 23:38 CT Chest Wo Con In Process Unspecified. EDMS 23:58 Adria Wong MD is Referral Physician. [facility] 23:58 Bishop Bunn MD is Referral Physician. [facility] 23:59 Edward Saleem MD is Referral Physician. [facility] 08/13 00:11 No provider procedures requiring assistance completed. Patient did not have IV access jm8 during this emergency room visit. Administered Medications: 08/12 23:07 Drug: Bradley (HYDROcodone-acetaminophen) 10 mg-325 mg 1 tabs Route: PO; jm8 08/13 00:13 Follow up: Response: No adverse reaction [facility] 08/12 23:07 Drug: Valium (diazepam) 5 mg Route: PO; 8 08/13 00:12 Follow up: Response: No adverse reaction 8 Outcome: 00:00 Discharge ordered by . [facility] 00:11 Discharged to home [facility] 00:11 Condition: good 00:11 Discharge instructions given to patient, Instructed on discharge instructions, follow up and referral plans. medication usage, Demonstrated understanding of instructions, follow-up care, medications, Prescriptions given X 2. 00:13 Patient left the ED. jm8 Signatures: Dispatcher [employer] Jin Castro MD MD cha Williams, Irene, RN RN Trixie Rollins Zipporah, RN RN zb Malcaba, Joseph, RN RN jm8
--- NOTE | 2020-08-13 00:01 | EDPHYS ---
Physician Documentation [facility] Name: Adria Guallpa Jr Age: 40 yrs Sex: Male : 1980 Arrival Date: 08/12/2020 Time: 22:08 Bed 25 Private MD: ED Physician Jin Mace HPI: 08/12 22:59 This 40 yrs old Male presents to ER via Ambulatory with complaints of sabina Shoulder Pain, Shoulder Injury. 22:59 The patient or guardian complains of decreased range of motion, pain, that is acute. sabina left shoulder, left trapezius, left sternocleidomastoid and left clavicle. Context: The problem was sustained outdoors. Onset: The symptoms/episode began/occurred 1 day(s) ago. Modifying factors: the symptoms are alleviated by ice, remaining still, The symptoms are aggravated by lifting weight, movement, rotation of arm. Associated signs and symptoms: Pertinent positives: chest pain, of the LEFT UPPER CHEST, LEFT SIDE WITH ROM. Severity of symptoms: At their worst the symptoms were mild, in the emergency department the symptoms are unchanged. The patient has not experienced similar symptoms in the past. Historical: - Allergies: 22:22 Demerol; iw 22:22 Flexeril; iw 22:22 Ibuprofen; iw 22:22 Toradol; iw - Home Meds: 22:22 None [Active]; iw - PMHx: 22:22 Chronic pain; Diabetes - NIDDM; GALLSTONES; Myocardial infarction; iw - PSHx: 22:22 right eye sx; Cholecystectomy; iw - Immunization history:: Adult Immunizations not up to date. - Social history:: Smoking status: Patient reports the use of cigarette tobacco products, smokes two packs cigarettes per day. - Family history:: not pertinent. ROS: 22:59 Constitutional: Negative for fever, chills, and weight loss, Eyes: Negative for injury, sabina pain, redness, and discharge, ENT: Negative for injury, pain, and discharge, Neck: Negative for injury, pain, and swelling, Respiratory: Negative for shortness of breath, cough, wheezing, and pleuritic chest pain, Abdomen/GI: Negative for abdominal pain, nausea, vomiting, diarrhea, and constipation, Back: Negative for injury and pain, : Negative for injury, bleeding, discharge, and swelling, Skin: Negative for injury, rash, and discoloration, Neuro: Negative for headache, weakness, numbness, tingling, and seizure, Psych: Negative for depression, anxiety, suicide ideation, homicidal ideation, and hallucinations, Allergy/Immunology: Negative for hives, rash, and allergies, Endocrine: Negative for neck swelling, polydipsia, polyuria, polyphagia, and marked weight changes, Hematologic/Lymphatic: Negative for swollen nodes, abnormal bleeding, and unusual bruising. 22:59 Cardiovascular: Positive for chest pain, with movement. 22:59 MS/extremity: Positive for decreased range of motion, pain. Exam: 22:59 Constitutional: This is a well developed, well nourished patient who is awake, alert, sabina and in no acute distress. Head/Face: Normocephalic, atraumatic. Eyes: Pupils equal round and reactive to light, extra-ocular motions intact. Lids and lashes normal. Conjunctiva and sclera are non-icteric and not injected. Cornea within normal limits. Periorbital areas with no swelling, redness, or edema. ENT: Nares patent. No nasal discharge, no septal abnormalities noted. Tympanic membranes are normal and external auditory canals are clear. Oropharynx with no redness, swelling, or masses, exudates, or evidence of obstruction, uvula midline. Mucous membranes moist. Neck: Trachea midline, no thyromegaly or masses palpated, and no cervical lymphadenopathy. Supple, full range of motion without nuchal rigidity, or vertebral point tenderness. No Meningismus. Cardiovascular: Regular rate and rhythm with a normal S1 and S2. No gallops, murmurs, or rubs. Normal PMI, no JVD. No pulse deficits. Respiratory: Lungs have equal breath sounds bilaterally, clear to auscultation and percussion. No rales, rhonchi or wheezes noted. No increased work of breathing, no retractions or nasal flaring. Abdomen/GI: Soft, non-tender, with normal bowel sounds. No distension or tympany. No guarding or rebound. No evidence of tenderness throughout. Back: No spinal tenderness. No costovertebral tenderness. Full range of motion. Male : Normal genitalia with no discharge or lesions. Skin: Warm, dry with normal turgor. Normal color with no rashes, no lesions, and no evidence of cellulitis. Neuro: Awake and alert, GCS 15, oriented to person, place, time, and situation. Cranial nerves II-XII grossly intact. Motor strength 5/5 in all extremities. Sensory grossly intact. Cerebellar exam normal. Normal gait. Psych: Awake, alert, with orientation to person, place and time. Behavior, mood, and affect are within normal limits. 22:59 Neck: External neck: is normal, no acute changes, C-spine: appears grossly normal, no acute changes, Trachea: is midline with no obvious abnormalities, no acute changes, ROM/movement: pain, Lymph nodes: no appreciated lymphadenopathy. 22:59 Chest/axilla: Inspection: normal, no acute changes, Palpation: crepitus, is not appreciated, tenderness, that is moderate, Axilla: are normal, Lymph nodes: lymphadenopathy is not appreciated. Vital Signs: 22:19 BP 139 / 92; Pulse 86; Resp 16; Temp 97.9; Pulse Ox 100% on R/A; Weight 97.52 kg; iw Height 5 ft. 10 in. (177.80 cm); Pain 9/10; 08/13 00:10 BP 125 / 80; Pulse 81; Resp 16; Pulse Ox 99% ; jm8 08/12 22:19 Body Mass Index 30.85 (97.52 kg, 177.80 cm) iw MDM: 08/12 22:[address] [facility] 22:59 Differential diagnosis: Anterior dislocation with fracture, Anterior dislocation sabina without fracture, humeral head fracture. Data reviewed: vital signs, nurses notes, lab test result(s), radiologic studies, CT scan, plain films. Data interpreted: residential monitor: not applicable for this patient encounter. rate is 86 beats/min, Pulse oximetry: on room air is 100 %. Test interpretation: by ED physician or midlevel provider: plain radiologic studies. Counseling: I had a detailed discussion with the patient and/or guardian regarding: the historical points, exam findings, and any diagnostic results supporting the discharge/admit diagnosis, lab results, radiology results, the need for outpatient follow up, for definitive care, a family practitioner, a orthopedic surgeon. 08/13 00:03 Order name: Urine Dipstick-Ancillary EDMS 08/12 22:56 Order name: CT C Spine [facility] 08/12 22:56 Order name: Shoulder Left (2 View) XRAY [facility] 08/12 22:56 Order name: CT Chest Wo Con [facility] 08/12 22:59 Order name: Sling; Complete Time: 23:15 [facility] 08/12 22:59 Order name: Ice pack; Complete Time: 23:43 [facility] 08/12 23:09 Order name: Urine Dipstick-Ancillary (obtain specimen); Complete Time: 00:12 [facility] Administered Medications: 23:07 Drug: Franklin (HYDROcodone-acetaminophen) 10 mg-325 mg 1 tabs Route: PO; [facility] 08/13 00:13 Follow up: Response: No adverse reaction [facility] 08/12 23:07 Drug: Valium (diazepam) 5 mg Route: PO; [facility] 08/13 00:12 Follow up: Response: No adverse reaction [facility] Disposition: 08/13/20 00:00 Discharged to Home. Impression: Fall (on) (from) other stairs and steps - off horse, Pain in left shoulder, Strain of muscle, fascia and tendon at neck level. - Condition is Stable. - Discharge Instructions: Joint Pain, Musculoskeletal Pain, Shoulder Pain, Cryotherapy, [id number], Shoulder Pain, [id number], Cervical Sprain, [id number], Cryotherapy. - Prescriptions for Skelaxin 800 mg Oral Tablet - take 1 tablet by ORAL route every 6 hours As needed; 28 tablet. Tylenol- Codeine #3 300-30 mg Oral Tablet - take 2 tablets by ORAL route every 4-6 hours As needed; 20 tablet. - Medication Reconciliation Form, Thank You Letter, Antibiotic Education, Prescription Opioid Use form. - Follow up: Private Physician; When: 2 - 3 days; Reason: Recheck today's complaints, Continuance of care, Re-evaluation by your physician. Follow up: Dr. Adria Wong; When: 2 - 3 days; Reason: Recheck today's complaints, Re-evaluation by your physician. Follow up: Bishop Bunn MD; When: 5 - 6 days; Reason: Recheck today's complaints, Re-evaluation by your physician. Follow up: Edward Saleem MD; When: 2 - 3 days; Reason: Recheck today's complaints, Re-evaluation by your physician. - Problem is new. - Symptoms have improved. Signatures: Dispatcher [employer] EDJin Foote MD MD cha Williams, Irene RN RN iw Herman Gentile RN RN jm8 Corrections: (The following items were deleted from the chart) 00:13 00:00 08/13/2020 00:00 Discharged to Home. Impression: Fall (on) (from) other stairs jm8 and steps - off horse; Pain in left shoulder; Strain of muscle, fascia and tendon at neck level. Condition is Stable. Discharge Instructions: Joint Pain, Musculoskeletal Pain, Shoulder Pain, Cryotherapy, [id number], Shoulder Pain, Rkmk-ra-[id number], Cervical Sprain, [id number]-[id number], Cryotherapy. Prescriptions for Skelaxin 800 mg Oral Tablet - take 1 tablet by ORAL route every 6 hours As needed; 28 tablet, Tylenol-Codeine #3 300-30 mg Oral Tablet - take 2 tablets by ORAL route every 4-6 hours As needed; 20 tablet. and Forms are Medication Reconciliation Form, Thank You Letter, Antibiotic Education, Prescription Opioid Use. Follow up: Private Physician; When: 2 - 3 days; Reason: Recheck today's complaints, Continuance of care, Re-evaluation by your physician. Follow up: Dr. Adria Wong; When: 2 - 3 days; Reason: Recheck today's complaints, Re-evaluation by your physician. Follow up: Bishop Bunn; When: 5 - 6 days; Reason: Recheck today's complaints, Re-evaluation by your physician. Follow up: Edward Saleem; When: 2 - 3 days; Reason: Recheck today's complaints, Re-evaluation by your physician. Problem is new. Symptoms have improved. sabina
[2020-08-13 00:03] LABS: Urine Blood Trace-intact (Negative); Urine Glucose 2+ (Negative); Urine Protein Negative (Negative); Urine pH 5.5 (5.0-7.0)
[2020-08-13 00:43] VITALS: TEMP 97.9
[2020-08-13 00:45] VITALS: BP 125/80; O2SAT 99
--- NOTE | 2020-08-13 07:42 | RAD REPORT ---
EXAM DESCRIPTION: RAD - Shoulder Left 2 View - 08/12/2020 11:24 pm CLINICAL HISTORY: PAIN, fall from horse, left shoulder pain COMPARISON: Shoulder Left 2 View dated 11/08/2016; Thorax Wo Con dated 08/12/2020 TECHNIQUE: Internal and external rotation views of the left shoulder were obtained. FINDINGS: There is no fracture or dislocation. AC joint is normal in appearance. No acute or suspici ous findings. IMPRESSION: Negative two-view left shoulder examination for acute findings.
--- NOTE | 2020-08-13 10:34 | RAD REPORT ---
EXAM DESCRIPTION: CT - C Spine Wo Con - 08/13/2020 6:35 am CLINICAL HISTORY: PAIN. TECHNIQUE: CT of the cervical spine was performed without contrast. Axial, coronal, and sagittal rec onstructions were created and sent to PACS. This exam was performed according to our departmental dose-optimization program which includes use of Automated Exposure Control, adjustment of the mA and/or kV according to patient size and/or use of i terative reconstruction technique. COMPARISON: None. FINDINGS: No acute osseous abnormality identified. Vertebral body height and alignment are maintaine d. No atlantodental interval widening. Atlantoaxial alignment is maintained. Trace intra-articular ga s on the left at C2-3. No significant central canal or neuroforaminal narrowing throughout the cervic al spine Paraspinal soft tissues: Please see the report for the concurrently performed CT of the chest for matilde luation of the lungs. IMPRESSION: No acute osseous abnormality identified. Trace intra-articular gas on the left at C2-3, possibly degenerative versus posttraumatic in etiology . Electronically signed by: Gogo Posey MD 08/12/2020 11:53 PM CDT Due to temporary technical issues with the PACS/Fluency reporting system, reports are being signed by the in house radiologist without review as a courtesy to ensure prompt reporting. The interpreting r adiologist is fully responsible for the content of the report.
--- NOTE | 2020-08-13 10:46 | RAD REPORT ---
EXAM DESCRIPTION: CT - Thorax Miladis Machado - 08/13/2020 6:35 am CLINICAL HISTORY: THROWN OFF A HORSE;Pain. COMPARISON: None. TECHNIQUE: CT of the chest was performed without contrast. Axial, coronal, and sagittal reconstructi ons were created and sent to PACS. This exam was performed according to our departmental dose-optimization program, which includes autom ated exposure control, adjustment of the mA and/or kV according to patient size and/or use of iterati ve reconstruction technique. FINDINGS: Lungs and pleura: Mild diffuse pulmonary intralobular septal thickening and faint groundgl ass opacification. Numerous scattered nodules throughout both lungs, measuring up to 0.4 cm in size. No pulmonary consolidation. No pleural effusion. No pneumothorax. Mediastinum and neck: No mediastinal lymphadenopathy by CT size criteria. Unremarkable appearance of the thyroid gland. Cardiovascular: No cardiomegaly or pericardial effusion. No thoracic aortic aneurysm. Four-vessel aor tic arch, normal variant. Abdomen: Small chronic cluster of calcifications in the superior left hepatic lobe (segment 4A), like ly of no clinical significance. Musculoskeletal: Trace intra-articular gas at the right sternoclavicular joint and right glenohumeral joint. No acute fracture or malalignment is identified. IMPRESSION: 1. No acute fracture or malalignment is identified. 2. Trace intra-articular gas at the right sternoclavicular joint and right glenohumeral joint, poss ibly posttraumatic versus degenerative in etiology. 3. Faint groundglass opacifications throughout the lungs, with mild interstitial thickening. Correl ate for pulmonary edema versus chronic inflammation. 4. Numerous tiny pulmonary nodules, measuring up to 4 mm in size. No routine follow-up imaging is r ecommended. These guidelines do not apply to immunocompromised patients and patients with cancer. Fol low up in patients with significant comorbidities as clinically warranted. For lung cancer screening, adhere to Lung-RADS guidelines. Reference: Radiology. 2017; 284(1):228-43. Electronically signed by: Gogo Posey MD 08/12/2020 11:50 PM CDT Due to temporary technical issues with the PACS/Fluency reporting system, reports are being signed by the in house radiologist without review as a courtesy to ensure prompt reporting. The interpreting r adiologist is fully responsible for the content of the report.
== END 2020-08-13 00:13 | disposition home or self-care (01) ==
LOC: ER 22:03
DX: S16.1XXA Strain of muscle, fascia and tendon at neck level, initial encounter (principal); V80.010A Animal-rider injured by fall from or being thrown from horse in noncollision accident, initial encounter; E11.9 Type 2 diabetes mellitus without complications; I25.2 Old myocardial infarction; F17.210 Nicotine dependence, cigarettes, uncomplicated; Z88.5 Allergy status to narcotic agent; Z88.6 Allergy status to analgesic agent
CPT/HCPCS: 71250; 72125; 81003; 99284

== ENCOUNTER 2021-06-15 01:42 | Emergency (ER) | payer OTHER, SELFPAY ==
--- OUTSIDE RECORDS SUMMARY | 2021-06-15 01:50 | XMS REPORT | Continuity of Care Document ---
:1980 Author Organization [facility] t Address [address] [place] [address] Care Team Providers Name Role Phone Asked, Pcp Primary Care Physician Unavailable ALEX Attending Clinician Unavailable Alex TY Attending Clinician Juliane Attending Clinician Unavailable KELSIE Attending Clinician Unavailable Kelsie TY Attending Clinician Anju Ge Attending Clinician Unavailable Stacey Pisano Attending Clinician Unavailable Sebas Attending Clinician Unavailable Jose Enrique TY, Deidra Attending Clinician Radha HOFFMANN Attending Clinician Unavailable Jayjay Swanson MD Attending Clinician JAVI Attending Clinician Unavailable Natalia MATHEW Attending Clinician Unavailable Joy Attending Clinician Unavailable DR Nicol BETH Attending Clinician Unavailable HERBER, Attending Clinician Unavailable Anju WAYNE Attending Clinician Unavailable DR TAHIR Attending Clinician Unavailable DR PHOEBE Attending Clinician Unavailable Barbara MONROE Attending Clinician Unavailable BEATRIZ, Attending Clinician Unavailable LINSEY MCCRAY Attending Clinician Unavailable KIRIT, Attending Clinician Unavailable KARIME VALDOVINOS Attending Clinician Unavailable DR GREG Attending Clinician Unavailable CASS, Attending Clinician Unavailable Physician, Primary or Family Admitting Clinician Unavailabl anju JOHNSON Admitting Clinician Unavailable Natalia MATHEW Admitting Clinician Unavailable DR Nicol BETH Admitting Clinician Unavailable HERBER, Admitting Clinician Unavailable Anju WAYNE Admitting Clinician Unavailable DR TAHIR Admitting Clinician Unavailable DR PHOEBE Admitting Clinician Unavailable BEATRIZ, Admitting Clinician Unavailable DR KIRIT Admitting Clinician Unavailable DR GREG Admitting Clinician Unavailable DR CASS Admitting Clinician Unavailable Payers Payer Name Policy Policy Effective Expiration Source Type Number Date Date [facility] [id number] 2020 [place] [address] CHOICE/CHOICE 00:00:00 Hospital [id number] 2019-Pres entHMO/PPO COVID19 HRSA UNINSURED [id number] 2019 00:00:00 Problems Condition Condition Condition Status Onset Resolution Last Treating Co mments Source Name Details Category Date Date Treatment Clinician Date Pain and Pain and Disease Active Unive rs swelling swelling 1-31 ity of of lower of lower 00:00: [place] leg, right leg, right 00 Me dical Branch Cellulitis Cellulitis Disease Active U nivers of right of right 1-31 ity of leg leg 00:00: [place] 00 Medical Branch Pain and Pain and Disease Active Unive rs swelling swelling 1-31 ity of of lower of lower 00:00: [place] leg, right leg, right 00 Me dical Branch 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 2-02 ity of mellitus mellitus 00:00: [place] with with 00 Medical neurologic neurologic Br anch complicati complicati on on Chest pain Chest pain Disease Active 2016-04 U nivers 2-01 ity of 00:00: [place] 00 Medical Branch Acute Acute Disease Active 2016-04 Univers gastritis gastritis 0-22 ity of without without 00:00: [place] hemorrhage hemorrhage 00 Me dical Branch Chest pain Chest pain Disease Active M ethodi 11-21 [facility] 00:[facility]: [facility] 00 l Allergies, Adverse Reactions, Alerts Allergy Allergy Status Severity Reaction(s) Onset Inactive Treating Comm ents Source Name Type Date Date Clinician ketorola DA Active MO HIVES 2021-0 [facility] 1-31 Clear 00:00: [place] [facility] ibuprofe DA Active SD STOMACH 2021-0 [facility] n UPSET 05-24 Clear 00:00: [place] 00 [facility] cycloben DA Active SD HIVES 2021-0 [facility] zaprine - Clear 00:00: [place] [facility] dicyclom DA Active SD HIVES 2021-0 [facility] ine -31 Clear 00:00: [place] 00 [facility] ibuprofe DA Active SD 2019-0 [facility] n 9-16 [facility] cycloben DA Active SD 2019-0 [facility] zaprine 9-16 [facility] ibuprofe DA Active SD STOMACH 2019-0 [facility] n UPSET 9-16 [facility] 00:[facility]: d [facility] cycloben DA Active SD HIVES 2019-0 [facility] zaprine 9-16 [place] 00:[facility]: d [facility] dicyclom DA Active SD HIVES 2019-0 [facility] ine 9-16 [place] 00:[facility]: d [facility] ketorola DA Active MO HIVES 2019-0 [facility] c 9-16 [place] 00:[facility]: d [facility] dicyclom DA Active SD 2019-0 [facility] ine 9-16 [place] 00:[facility]: d [facility] ketorola DA Active MO 2019-0 [facility] c 9-16 [facility] 00:[facility]: d [facility] ibuprofe DA Active SD 2019-0 [facility] n 5-24 Clear 00:00: [place] 00 [facility] cycloben DA Active SD 2019-0 [facility] zaprine 5-24 Clear 00:00: [place] 00 [facility] dicyclom DA Active SD 2019-0 [facility] ine 5-24 Clear 00:00: [place] 00 [facility] ketorola DA Active MO 2019-0 [facility] c 5-24 Clear 00:00: [place] 00 [facility] ibuprofe DA Active SD 2019-0 [facility] n 2-02 Clear 00:00: [place] 00 [facility] cycloben DA Active SD 2019-0 [facility] zaprine 2-02 Clear 00:00: [place] 00 [facility] ibuprofe DA Active SD STOMACH 2019-0 [facility] n UPSET 2-02 Clear 00:00: [place] 00 [facility] cycloben DA Active SD RASH 2019-0 [facility] zaprine 2-02 Clear 00:00: [place] 00 [facility] ketorola DA Active SD RASH 2019-0 [facility] c 2-02 Clear 00:00: [place] 00 [facility] ketorola DA Active SD 2019-0 [facility] c 2-02 Clear 00:00: [place] 00 [facility] ketorola DA Active MO 2018-0 [facility] c 6-11 Clear 00:00: [place] 00 [facility] Ketorola Drug Active Itching 2018-[address] [facility] All[facility]- [facility]: [address] dicyclom DA Active SD 2018-0 [facility] ine 5-21 Clear 00:00: [place] 00 [facility] ibuprofe DA Active SD 2018-0 [facility] n 4-12 Clear 00:00: [place] 00 [facility] cycloben DA Active SD 2018-0 [facility] zaprine 4-12 Clear 00:00: [place] 00 [facility] Ketorola Propensi Active Itching 2016-04 Unive rs c ty to 0-22 ity of adverse 00:00: [place] reaction 00 Medical s Branch KETOROLA DRUG Active ITCHING 2016-04 Univers C INGREDI 0-22 ity of 00:00: [place] 00 Medical Branch Nsaids Propensi Active [facility] (Non-Arpan ty to 01-19 [facility] - roidal adverse 00:00: Medical Anti-Inf reaction 00 Center lammator s y Drug) Ket[place]ola Propensi Active GI 2017 Method i c ty to Intolerance 9- st adverse 00:00: Hospita reaction 00 l s to drug Cycloben Propensi Active Itching [facility] zap[facility] 6-04 [facility] - Hcl adverse 00:00: Medical reaction 00 Center s Ibuprofe Propensi Active Other (See Stomach C HI St n ty to Comments) 6-04 upset [facility] - adverse 00:00: Medical reaction 00 Center s Cycloben Propensi Active Hives Method i zaprine ty to 4-20 st adverse 00:00: Hospita reaction 00 l s to drug Cycloben Propensi Active Hives [facility] zaprine ty to 4-20 [facility] - adverse 00:00: Medical reaction 00 Center s Cycloben Propensi Active Other - See GI U nivers zaprine ty to comments 4- problems ity o f Hcl adverse 00:00: [place] reaction 00 Medical s Branch CYCLOBEN DRUG Active Other-Cmnt Univ ers ZAPRINE INGREDI 4-04 ity of HCL 00:00: [place] [facility] Ibuprofe Propensi Active Nausea And Me thodi n ty to Vomiting 05-20 st adverse 00:00: Hospita reaction 00 l s to drug Ibuprofe Propensi Active Nausea 2015-04 Other Univer s n ty to and/or 06-19 reaction( ity of adverse Vomiting 00:00: s): GI [place] reaction 00 Discomfor Medic al s t Branch IBUPROFE DRUG Active High N/V 2015-04 Univers N INGREDI 2-26 ity of 00:00: [address] Social History Social Habit Start Date Stop Date Quantity Comments Source Exposure to Not sure [facility] SARS-CoV-2 (event) [facility] History of tobacco Cigarette Smoker [facility] Alcohol intake 2021-02-23 2021-02-23 0 /d University of 00:00:00 00:00:00 [facility] Cigarette 2017-10-01 2017-10-01 [facility] pack-years 00:00:00 00:00:00 Hospital Cigarettes smoked 2017-05-24 2017-05-24 Univers ity of current (pack per 00:00:00 00:00:00 [facility] ) - Reported Branch Tobacco use and 2017-05-24 2017-05-24 Never used Universit y of exposure 00:00:00 00:00:00 [facility] Sex [birth year] At [birth year] Universit y of 00:00:00 00:00:00 [facility] Smoking Status Start Date Stop Date Source Current every day smoker 2017-05-24 00:00:00 Uni versity of [facility] Medications Ordered Filled Start Stop Current Ordering Indication Dosage Frequency Signature Comments Components Source Medication Medication Date Date Medication? Clinician (SIG) Name Name insulin 2021- Yes 6U 6 Units, Unive rs regular 05-25 Slow IV ity of human 00:30: 12:29 Push, [place] (HUMULIN R) 00 :00 ONCE, 1 Medic al injection 6 dose, On Bran ch Units [facility] 05/24/21 at 1830, Routine NaCl 0.9% 2021- Yes 2000mL at 999 Uni vers (NS) bolus 05-25 mL/hr, ity of infusion 00:30: 12:29 2,000 mL, Rudi as 2,000 mL 00 :00 IV Medical Infusion, Branch ONCE, 1 dose, On Mon05/24/21 at 1830, JAMIN iopamidol 2021- No [id number] 80mL 80 mL, Univers (ISOVUE 05-25 Intravenou ity o f 370-500 mL) 00:00: 22:36 s, ONCE, 1 [place] injection 00 :00 dose, On Medica l 80 mL [facility] 05/24/21 at 1800, Routine NaCl 0.9% 2021- No 1000mL at 999 Uni vers (NS) bolus 05-24 mL/hr, ity of infusion 23:30: 23:35 1,000 mL, Rudi as 1,000 mL 00 :00 IV Medical Infusion, Branch ONCE, 1 dose, On Mon05/24/21 at 1730, JAMIN ondansetron 2020-04- No 4mg 4 mg, Slow Univers (ZOFRAN 04-25 IV Push, ity of (PF)) 19:00: 18:02 ONCE, 1 [place] injection 4 00 :00 dose, On Medi angel mg Tue [place] 02/23/21 at 1400, JAMIN morpHINE 2020-04- No 4mg 4 mg, Slow Un nay injection 4 04-25 IV Push, ity of mg 19:00: 18:01 ONCE, 1 [place] 00 :00 dose, On Medical Tue Branch 02/23/21 at 1400, STAT methylpredn 2020-04 No 125mg 125 mg, U nivers isolone sod 04-25 Intravenou i ty of succ 19:00: 18:02 s, ONCE, 1 [place] (SOLU-MEDRO 00 :00 dose, On Medi angel L) Tue Branch injection 02/23/21 at 125 mg 1400, STAT methocarbam 2020-04 Yes [id number] 500mg Take 1 Univers oL 1-02 tablet by ity of (ROBAXIN) 00:00: mouth [place] 500 mg 00 every 6 Medical tablet (six) Branch hours as needed for Pain (scale 4-6). acetaminoph 2020-04 Yes [id number] 1{tbl} Take 1 Un nay en-codeine 1-02 tablet by ity of 300-30 mg 00:00: mouth [place] tablet 00 every 4 Medical (four) Branch hours as needed for Pain (scale 4-6). Indication s: acute pain methocarbam 2020-04 Yes [id number] 500mg Take 1 Univers oL 1-02 tablet by ity of (ROBAXIN) 00:00: mouth [place] 500 mg 00 every 6 Medical tablet (six) Branch hours as needed for Pain (scale 4-6). acetaminoph 2020-04 Yes [id number] 1{tbl} Take 1 Un nay en-codeine 1-02 tablet by ity of 300-30 mg 00:00: mouth [place] tablet 00 every 4 Medical (four) Branch hours as needed for Pain (scale 4-6). Indication s: acute pain morpHINE 2019-0 2020- No 4mg 4 mg, Slow Un nay injection 4 3-30 03-30 IV Push, ity of mg 06:15: 05:22 ONCE, 1 [place] 00 :00 dose, Mon Medical 07/22/19 at Branch 0115, Routine ondansetron 2019-0 2020- No 4mg 4 mg, Slow Univers (ZOFRAN 3-30 03-30 IV Push, ity of (PF)) 05:15: 05:24 Administer [place] injection 4 00 :00 over 2 Medica l mg Minutes, Branch ONCE, 1 dose, 07/22/19 at 0015, STAT acetaminoph 2020-0 2020- No 1000mg 1,000 mg, Univers en 3-30 03-30 Oral, ity of (TYLENOL) 04:30: 05:21 ONCE, 1 [place] tablet 00 :00 dose, [facility] 1,000 mg 07/21/19 at [facility] h 2330, JAMIN bromphenira 2020-0 Yes [id number] 5mL Take 5 mL Univers mine-pseudo 3-30 by mouth 4 it y of ephedrine-D 00:00: (four) [place] (BROMFED 00 times Medical DM) 2-30-10 daily as Bran ch mg/5 mL needed for syrup Congestion /Allergies . ondansetron 2020-0 Yes [id number] 4mg Take 1 Univers (ZOFRAN 3-30 tablet by ity of ODT) 4 mg 00:00: mouth [place] disintegrat 00 every 8 Medic al ing tablet (eight) Branch hours as needed for Nausea and Vomiting (N/V). bromphenira 2020-0 Yes [id number] 5mL Take 5 mL Univers mine-pseudo 3-30 by mouth 4 it y of ephedrine-D 00:00: (four) [place] (BROMFED 00 times Medical DM) 2-30-10 daily as Bran ch mg/5 mL needed for syrup Congestion /Allergies . ondansetron 2020-0 Yes [id number] 4mg Take 1 Univers (ZOFRAN 3-30 tablet by ity of ODT) 4 mg 00:00: mouth [place] disintegrat 00 every 8 Medic al ing tablet (eight) Branch hours as needed for Nausea and Vomiting (N/V). bromphenira 2020-0 Yes [id number] 5mL Take 5 mL Univers mine-pseudo 3-30 by mouth 4 it y of ephedrine-D 00:00: (four) [place] (BROMFED 00 times Medical DM) 2-30-10 daily as Bran ch mg/5 mL needed for syrup Congestion /Allergies . ondansetron 2020-0 Yes [id number] 4mg Take 1 Univers (ZOFRAN 3-30 tablet by ity of ODT) 4 mg 00:00: mouth [place] disintegrat 00 every 8 Medic al ing tablet (eight) Branch hours as needed for Nausea and Vomiting (N/V). bromphenira 2020-0 Yes [id number] 5mL Take 5 mL Univers mine-pseudo 3-30 by mouth 4 it y of ephedrine-D 00:00: (four) [place] (BROMFED 00 times Medical DM) 2-30-10 daily as Bran ch mg/5 mL needed for syrup Congestion /Allergies . ondansetron 2019-0 Yes [id number] 4mg Take 1 Univers (ZOFRAN 3-30 tablet by ity of ODT) 4 mg 00:00: mouth [place] disintegrat 00 every 8 Medic al ing tablet (eight) Branch hours as needed for Nausea and Vomiting (N/V). ondansetron 2018- Yes [id number] 4mg Take 1 Univers (ZOFRAN) 4 5-30 tablet by ity of mg tablet 00:00: mouth [place] 00 every 8 Medical (eight) Branch hours as needed for Nausea and Vomiting (N/V). famotidine 2018-0 Yes [id number] 20mg Take 1 Univers (PEPCID) 20 5-30 tablet by ity of mg tablet 00:00: mouth 2 00 (two) Medical times Branch daily. famotidine 2018-0 Yes [id number] 20mg Take 1 Univers (PEPCID) 20 5-30 tablet by ity of mg tablet 00:00: mouth 2 [place] 00 (two) Medical times Branch daily. ondansetron 2018-0 Yes [id number] 4mg Take 1 Univers (ZOFRAN) 4 5-30 tablet by ity of mg tablet 00:00: mouth [place] 00 every 8 Medical (eight) Branch hours as needed for Nausea and Vomiting (N/V). famotidine 2018-0 Yes [id number] 20mg Take 1 Univers (PEPCID) 20 5-30 tablet by ity of mg tablet 00:00: mouth 2 [place] 00 (two) Medical times Branch daily. famotidine 2019-0 Yes [id number] 20mg Take 1 Univers (PEPCID) 20 5-30 tablet by ity of mg tablet 00:00: mouth 2 [place] 00 (two) Medical times Branch daily. ondansetron 2019-0 Yes [id number] 4mg Take 1 Univers (ZOFRAN) 4 5-30 tablet by ity of mg tablet 00:00: mouth [place] 00 every 8 Medical (eight) Branch hours as needed for Nausea and Vomiting (N/V). famotidine 2018-0 Yes [id number] 20mg Take 1 Univers (PEPCID) 20 5-30 tablet by ity of mg tablet 00:00: mouth 2 [place] (two) Medical times Branch daily. famotidine 2019-0 Yes [id number] 20mg Take 1 Univers (PEPCID) 20 5-30 tablet by ity of mg tablet 00:00: mouth 2 [place] (two) Medical times Branch daily. ondansetron 2019-0 Yes [id number] 4mg Take 1 Univers (ZOFRAN) 4 5-30 tablet by ity of mg tablet 00:00: mouth [place] 00 every 8 Medical (eight) Branch hours as needed for Nausea and Vomiting (N/V). famotidine 2019-0 Yes [id number] 20mg Take 1 Univers (PEPCID) 20 5-30 tablet by ity of mg tablet 00:00: mouth 2 [place] (two) Medical times Branch daily. famotidine 2019-0 Yes [id number] 20mg Take 1 Univers (PEPCID) 20 5-30 tablet by ity of mg tablet 00:00: mouth 2 [place] (two) Medical times Branch daily. metFORMIN 2018-0 Yes 500mg Q.5D Take 500 Met hodi (GLUCOPHAGE 6-[address] ) 500 mg 23:02: mouth 2 Hospit a tablet 17 (two) l times a day with meals. aspirin 81 2018-0 Yes 81mg Q.5D Chew 81 mg M ethodi mg chewable 6-10 2 (two) st tablet 23:02: times a Hospita 17 day. l gabapentin 2018-0 Yes 300mg Q.5D Take 300 Me thodi (NEURONTIN) 6-[address] 300 mg 23:02: mouth 2 Hospita capsule 17 (two) l times a day. metFORMIN 2018-0 Yes 500mg Take [address] [facility] (GLUCOPHAGE 6-07 mg by [facility] - ) 500 MG 08:08: mouth 2 Medica l tablet 05 (two) Center times daily with breakfast and dinner. gabapentin 2018-0 Yes 300mg Q.[id number] Take [address] [facility] (NEURONTIN) 6-07 [id number] mg by L ukes - 300 MG 08:08: 3D mouth 3 Medical capsule 05 (three) Center times daily. metFORMIN 2018-0 Yes 500mg Take [address] [facility] (GLUCOPHAGE 6-07 mg by [facility] - ) 500 MG 08:08: mouth 2 Medica l tablet 05 (two) Center times daily with breakfast and dinner. gabapentin 2018-0 Yes 300mg Q.[id number] Take [address] [facility] (NEURONTIN) 6-07 [id number] mg by L ukes - 300 MG 08:08: 3D mouth 3 Medical capsule 05 (three) Center times daily. metFORMIN 2018-0 Yes 500mg Take [address] [facility] (GLUCOPHAGE 6-07 mg by [facility] - ) 500 MG 08:08: mouth 2 Medica l tablet 05 (two) Center times daily with breakfast and dinner. gabapentin 2018-0 Yes 300mg Q.[id number] Take [address] [facility] [address] (NEURONTIN) 6-07 [id number] mg by L ukes - 300 MG 08:08: 3D mouth 3 Medical capsule 05 (three) Center times daily. metoclopram 2018-0 Yes 10mg Take 1 Univ ers tadeo HCl 10 6-05 tablet by ity of mg tablet 00:00: mouth [place] 00 every 6 Medical (six) Branch hours. metoclopram 2018-0 Yes 10mg Take 1 Univ ers tadeo HCl 10 6-05 tablet by ity of mg tablet 00:00: mouth [place] 00 every 6 Medical (six) Branch hours. metoclopram 2018-0 Yes 10mg Take 1 Univ ers tadeo HCl 10 6-05 tablet by ity of mg tablet 00:00: mouth [place] 00 every 6 Medical (six) Branch hours. metoclopram 2018-0 Yes 10mg Take 1 Univ ers tadeo HCl 10 6-05 tablet by ity of mg tablet 00:00: mouth [place] 00 every 6 Medical (six) Branch hours. diflunisal 2018-0 Yes 500mg Take 1 Univ ers 500 mg 3-23 tablet by ity of tablet 00:00: mouth 2 [place] 00 (two) Medical times Branch daily. diflunisal 2018-0 Yes 500mg Take 1 Univ ers 500 mg 3-23 tablet by ity of tablet 00:00: mouth 2 [place] 00 (two) Medical times Branch daily. diflunisal 2018-0 Yes 500mg Take 1 Univ ers 500 mg 3-23 tablet by ity of tablet 00:00: mouth 2 [place] 00 (two) Medical times Branch daily. diflunisal 2018-0 Yes 500mg Take 1 Univ ers 500 mg 3-23 tablet by ity of tablet 00:00: mouth 2 [place] 00 (two) Medical times Branch daily. acetaminoph 2018-0 Yes 1{tbl} Take 1 Un nay en-codeine 3-13 tablet by ity of 300-30 mg 00:00: mouth [place] tablet 00 every 4 Medical (four) Branch hours as needed for Pain (scale 4-6). methocarbam 2018-0 Yes 500mg Take 1 Uni vers ol 3-13 tablet by ity of (ROBAXIN) 00:00: mouth [place] 500 mg 00 every 6 Medical tablet (six) Branch hours as needed for Pain (scale 4-6). acetaminoph 2018-0 Yes 1{tbl} Take 1 Un nay en-codeine 3-13 tablet by ity of 300-30 mg 00:00: mouth [place] tablet 00 every 4 Medical (four) Branch hours as needed for Pain (scale 4-6). methocarbam 2018-0 Yes 500mg Take 1 Uni vers ol 3-13 tablet by ity of (ROBAXIN) 00:00: mouth [place] 500 mg 00 every 6 Medical tablet (six) Branch hours as needed for Pain (scale 4-6). acetaminoph 2018-2020- No 1{tbl} Take 1 U nivers en-codeine 3-13 11- tablet by ity of 300-30 mg 00:00: 00:00 mouth [place] tablet 00 :00 every 4 Medical (four) Branch hours as needed for Pain (scale 4-6). methocarbam 2017-2020- No 500mg Take 1 Un nay ol 3-13 11-02 tablet by ity of (ROBAXIN) 00:00: 00:00 mouth [place] 500 mg 00 :00 every 6 Medical tablet (six) Branch hours as needed for Pain (scale 4-6). sulfamethox 2018-0 Yes 2{tbl} Take 2 Un nay azole-trime 2-11 tablets by it y of thoprim 00:00: mouth [place] 800-160 mg 00 every 12 Medic al per tablet (twelve) Branc h hours. cephALEXin 2018-0 Yes 500mg Take 1 Univ ers 500 mg 2-11 capsule by ity of capsule 00:00: mouth 4 [place] 00 (four) Medical times Branch daily. sulfamethox 2018-0 Yes 2{tbl} Take 2 Un nay azole-trime 2-11 tablets by it y of thoprim 00:00: mouth [place] 800-160 mg 00 every 12 Medic al per tablet (twelve) Branc h hours. cephALEXin 2018-0 Yes 500mg Take 1 Univ ers 500 mg 2-11 capsule by ity of capsule 00:00: mouth 4 (four) Medical times Branch daily. sulfamethox 2018-0 Yes 2{tbl} Take 2 Un nay azole-trime 2-11 tablets by it y of thoprim 00:00: mouth [place] 800-160 mg 00 every 12 Medic al per tablet (twelve) Branc h hours. cephALEXin 2018-0 Yes 500mg Take 1 Univ ers 500 mg 2-11 capsule by ity of capsule 00:00: mouth (four) Medical times Branch daily. sulfamethox 2018-0 Yes 2{tbl} Take 2 Un nay azole-trime 2-11 tablets by it y of thoprim 00:00: mouth [place] 800-160 mg 00 every 12 Medic al per tablet (twelve) Branc h hours. cephALEXin 2018-0 Yes 500mg Take 1 Univ ers 500 mg 2-11 capsule by ity of capsule 00:00: mouth (four) Medical times Branch daily. metFORMIN 2018-0 Yes 500mg Take 500 Uni vers 500 mg 2-01 mg by ity of tablet 16:14: mouth (two) Medical times Branch daily with meals. aspirin 81 2018-0 Yes 81mg Take 81 mg U nivers mg chewable 2-01 by mouth. ity of tablet 16:14: Medical Branch gabapentin 2018-0 Yes 300mg Take 300 Un nay 300 mg 2-01 mg by ity of capsule 16:14: mouth (two) Medical times Branch daily. metFORMIN 2018-0 Yes 500mg Take 500 Uni vers 500 mg 2-01 mg by ity of tablet 16:14: mouth (two) Medical times Branch daily with meals. aspirin 81 2018-0 Yes 81mg Take 81 mg U nivers mg chewable 2-01 by mouth. ity of tablet 16:14: Medical Branch gabapentin 2018-0 Yes 300mg Take 300 Un nay 300 mg 2-01 mg by ity of capsule 16:14: mouth 2 [place] 07 (two) Medical times Branch daily. metFORMIN 2018-0 Yes 500mg Take 500 Uni vers 500 mg 2-01 mg by ity of tablet 10:14: mouth 2 (two) Medical times Branch daily with meals. aspirin 81 2018-0 Yes 81mg Take 81 mg U nivers mg chewable 2-01 by mouth. ity of tablet 10:14: Medical Branch gabapentin 2018-0 Yes 300mg Take 300 Un nay 300 mg 2-01 mg by ity of capsule 10:14: mouth 2 (two) Medical times Branch daily. metFORMIN 2018-0 Yes 500mg Take 500 Uni vers 500 mg 2-01 mg by ity of tablet 10:14: mouth 2 (two) Medical times Branch daily with meals. aspirin 81 2018-0 Yes 81mg Take 81 mg U nivers mg chewable 2-01 by mouth. ity of tablet 10:14: Medical Branch gabapentin 2018-0 Yes 300mg Take 300 Un nay 300 mg 2-01 mg by ity of capsule 10:14: mouth 2 (two) Medical times Branch daily. albuterol 2017- Yes 2{puff} Inhale 2 U nivers 90 8-07 Puffs ity of mcg/actuati 00:00: every 4 Rudi as on inhaler 00 (four) Medical hours as Branch needed for Wheezing or Shortness of Breath. albuterol 0 Yes 2{puff} Inhale 2 U nivers 90 8-07 Puffs ity of mcg/actuati 00:00: every 4 Rudi as on inhaler 00 (four) Medical hours as Branch needed for Wheezing or Shortness of Breath. albuterol 2017-0 Yes 2{puff} Inhale 2 U nivers 90 8-07 Puffs ity of mcg/actuati 00:00: every 4 Rudi as on inhaler 00 (four) Medical hours as Branch needed for Wheezing or Shortness of Breath. albuterol 2017-0 Yes 2{puff} Inhale 2 U nivers 90 8-07 Puffs ity of mcg/actuati 00:00: every 4 Rudi as on inhaler 00 (four) Medical hours as Branch needed for Wheezing or Shortness of Breath. Vital Signs Vital Name Observation Time Observation Value Comments Source Systolic blood 2021-05-24 22:08:00 149 mm[Hg] Univer sity of pressure [place] [facility] Diastolic blood 2021-05-24 22:08:00 83 mm[Hg] Unive rsity of pressure [place] [facility] Heart rate 2021-05-24 22:08:00 83 /min Universi ty of [place] [facility] Body temperature 2021-05-24 22:08:00 36.44 Amanda Univ ersity of [place] [facility] Respiratory rate 2021-05-24 22:08:00 20 /min Univ ersity of [place] [facility] Body height 2021-05-24 22:08:00 177.8 cm Universi ty of [place] [facility] Body weight 2021-05-24 22:08:00 104.781 kg [facility]i ty of [place] [facility] BMI 2021-05-24 22:08:00 33.15 kg/m2 Universi ty of [facility] Branch Oxygen saturation in 2021-05-24 22:08:00 97 /min University of Arterial blood by [facility] Pulse oximetry Branch Systolic blood 2021-02-23 19:13:00 146 mm[Hg] Univer sity of pressure [place] [facility] Diastolic blood 2021-02-23 19:13:00 78 mm[Hg] Unive rsity of pressure [place] [facility] Heart rate 2021-02-23 19:13:00 86 /min Universi ty of [place] [facility] Respiratory rate 2021-02-23 19:13:00 15 /min Univ ersity of [place] [facility] Oxygen saturation in 2021-02-23 19:13:00 98 /min University of Arterial blood by [facility] Pulse oximetry Branch Body temperature 2021-02-23 17:30:00 36.67 Amanda Univ ersity of [place] [facility] Body height 2021-02-23 17:30:00 177.8 cm Universi ty [facility] [place] [facility] Body weight 2021-02-23 17:30:00 102.3 kg [facility]i ty of [place] [facility] BMI 2021-02-23 17:30:00 32.36 kg/m2 [facility] [place] [facility] Systolic blood 2019-07-22 05:17:33 123 mm[Hg] Univer sity of pressure [place] [facility] Diastolic blood 2019-07-22 05:17:33 68 mm[Hg] Unive rsity of pressure [place] [facility] Heart rate 2019-07-22 05:17:33 83 /min Universi ty of [facility] Body temperature 2019-07-22 05:17:33 37 Amanda [facility] ersity of [facility] Respiratory rate 2019-07-22 05:17:33 19 /min Univ ersity of [facility] Branch Oxygen saturation in 2019-07-22 05:17:33 97 /min University of Arterial blood by [facility] Pulse oximetry Branch Body height 2019-07-22 03:49:00 177.8 cm Universi ty of [facility] Body weight 2019-07-22 03:49:00 89.631 kg [facility] BMI 2019-07-22 03:49:00 28.35 kg/m2 [facility] Systolic blood 2019-07-22 05:17:33 123 mm[Hg] Univer sity of pressure [facility] Diastolic blood 2019-07-22 05:17:33 68 mm[Hg] Unive rsity of pressure [facility] Heart rate 2019-07-22 05:17:33 83 /min [facility]i ty [facility] Body temperature 2019-07-22 05:17:33 37 Amanda [facility] Respiratory rate 2019-07-22 05:17:33 19 /min [facility] Oxygen saturation in 2019-07-22 05:17:33 97 /min University of Arterial blood by [facility] Pulse oximetry Branch Body height 2019-07-22 03:49:00 177.8 cm Universi ty of [facility] Body weight 2019-07-22 03:49:00 89.631 kg Universi ty of [facility] BMI 2019-07-22 03:49:00 28.35 kg/m2 Universi ty [facility] Systolic blood 2020-10-26 08:12:00 142 mm[Hg] Method ist [facility] pressure Diastolic blood 2020-10-26 08:12:00 76 mm[Hg] [facility] pressure Heart rate 2020-10-26 08:12:00 82 /min [facility] Body temperature 2020-10-26 08:12:[address] [facility] Respiratory rate 2020-10-26 08:12:00 18 /min [facility] Body height 2020-10-26 08:12:00 177.8 cm [facility] Body weight 2020-10-26 08:12:00 102.059 kg [facility] BMI 2020-10-26 08:12:00 32.28 kg/m2 [facility] Oxygen saturation in 2020-10-26 08:12:00 98 /min [facility] Arterial blood by Pulse oximetry Procedures Procedure Date / Time Performing Clinician Source Performed LIPASE 2021-05-24 22:44:00 [facility] COMP. METABOLIC PANEL 2021-05-24 22:44:00 Alex [facility] ([id number]) Medical Branch CBC WITH DIFF 2021-05-24 22:44:00 [facility] URINALYSIS 2021-05-24 22:44:00 [facility] COVID-19 (ID NOW RAPID 2021-05-24 22:44:00 [facility] TESTING) Medical Branch CONSENT/REFUSAL FOR 2021-05-24 22:04:02 [facility] COMP. METABOLIC PANEL 2021-02-23 17:59:00 [facility] ([id number]) [facility] Branch CBC WITH DIFF 2021-02-23 17:59:00 Kelsie [facility] POCT GLUCOSE (AUTOMATED) 2021-02-23 17:32:00 Kanika Iglesias [facility] CONSENT/REFUSAL FOR 2021-02-23 17:06:01 [facility] CT RENAL STONE PROTOCOL 2020-10-26 09:54:44 Gifty curtis [facility] CT CHEST WO CONTRAST 2020-10-26 09:54:21 [facility] 2020-10-26 09:05:00 Gifty curtis [facility] URINALYSIS SCREEN AND 2020-10-26 09:05:00 Gifty curtis [facility] MICROSCOPY, WITH REFLEX TO CULTURE CBC WITH PLATELET AND 2020-10-26 08:58:00 Gifty curtis [facility] DIFFERENTIAL COMPREHENSIVE METABOLIC 2020-10-26 08:58:00 HuGifty curtis [facility] PANEL TROPONIN 2020-10-26 08:58:00 Huever [facility] LIPASE LEVEL 2020-10-26 08:58:00 Huever [facility] B NATRIURETIC PEPTIDE 2020-10-26 08:58:00 HuGifty curtis [facility] ESTIMATED GFR 2020-10-26 08:58:00 Jose Enrique [facility] MANUAL DIFFERENTIAL 2020-10-26 08:58:00 [facility] XR CHEST 1 VW PORTABLE 2020-10-26 08:44:53 [facility] ECG 12-LEAD 2020-10-26 08:30:59 Huever [facility] ECG ED PRELIMINARY 2020-10-26 08:26:55 [facility] INTERPRETATION POC GLUCOSE 2020-10-26 08:20:00 Huever [facility] XR CHEST 1 VW COVID 2019-07-22 05:08:06 Alex [facility] LIPASE 2019-07-22 04:48:00 [facility] TROPONIN I 2019-07-22 04:48:00 [facility] 2019-07-22 04:48:00 [facility] ([id number]) ([facility] T,BU/BC,ALT,AST,ALK PHOS) BASIC METABOLIC PANEL 2019-07-22 04:48:00 [facility] (NA, K, CL, CO2, GLUCOSE, Medica l Branch BUN, CREATININE, CA) CBC WITH DIFFERENTIAL 2019-07-22 04:48:00 Johnson, [facility] ADC,CLC OR LCC ONLY - 2019-07-22 04:48:00 [facility] & B DIRECT Medical B ranch ANTIGEN N-TERMINAL PRO-BNP 2019-07-22 04:48:[address] [facility] EKG-12 LEAD 2019-07-22 04:22:43 Liz Johnson o f [facility] Plan of Care Planned Activity Planned Date Details Comments Source Future Scheduled Test DIABETES: RETINAL EYE [facility] EXAM [code = DIABETES: RETINAL EYE EXAM] Future Scheduled Test DIABETIC FOOT EXAM [facility] [code = DIABETIC FOOT EXAM] Future Scheduled Test URINE MICROALBUMIN [facility] [code = URINE MICROALBUMIN] Future Scheduled Test COVID-19 VACCINE (1) [facility] [code = COVID-19 VACCINE (1)] Future Scheduled Test Hepatitis C screening [facility] (procedure) [code = 928740207] Future Scheduled Test INFLUENZA VACCINE [code [facility] = INFLUENZA VACCINE] Encounters Start End Encounter Admission Attending Care Care Encounter Source Date/Time Date/Time Type Type Clinicians Facility Department ID 2020-08-28 Inpatient HCAMN BELLA [id number] [facility] 20:41:00 [id number] [facility] 2020-06-13 Inpatient HCACL NTAY [id number] [facility] 01:48:00 [id number] [facility] 2019-12-29 Inpatient HCAPM NATY [id number] [facility] 09:42:00 [facility] 2019-10-13 Inpatient HCACL NATY [id number] [facility] 20:10:00 [id number] [facility] 2019-07-08 Inpatient HCACL NATY [id number] [facility] 12:50:00 [id number] [facility] 2021-05-24 2021-05-24 Emergency X JOHNSON, ILMB ERT [id number] Univers 16:05:00 17:35:[address] [facility] 2021-05-24 2021-05-24 Emergency Johnson, [facility] [id number] Univers 16:05:00 17:35:00 [facility] 350.1.13.10 it y [facility] 4.2.7.2.686 María batres RELIANCE [phone] [address] ([facility]) 2021-05-24 2021-05-24 Emergency EM Vick Cardozoian HCACL AERS [id number] [facility] 00:29:00 02:00:00 [id number] [facility] 2021-04-19 2021-04-19 Emergency X [facility] ERT [id number] Univers 17:55:00 18:18:[address] [facility] 2021-02-23 2021-02-23 Emergency X KELSIE [facility] ERT [id number] Univers 12:25:00 14:15:[address] [facility] 2021-02-23 2021-02-23 Emergency Kelsie [facility] [id number] Univers 12:25:00 14:15:00 [facility] 350.1.13.10 it y of [place] 4.2.7.2.686 María batres NEFF [phone] [address] ([facility]) 2021-02-15 2021-02-15 Emergency EM Mino Cardozo HCACL AERS [id number] [facility] 00:47:00 01:33:00 18 [facility] 2021-02-15 2021-02-15 Emergency EM Mino Cardozo HCACL AERS [id number] [facility] 00:47:00 01:33:00 [id number] [facility] 2020-12-15 2020-12-16 Emergency EM Joo, HCACL AERS [id number] [facility] 23:47:00 01:56:00 Danny [id number] [facility] 2020-12-15 2020-12-15 Emergency EM Norris, HCAMN BELLA [id number] [facility] 02:37:00 03:00:00 Evelyn [id number] [facility] 2020-12-12 2020-12-12 Emergency EM Sebas, HCACL NATY [id number] [facility] 00:49:00 02:22:00 Jacinto [id number] [facility] 2020-10-26 2020-10-26 Emergency Huever, 1.2.840.1 [id number] Methodi 03:19:00 04:52:[address]1.[address] 3.430.2.7 Hospit a .3.778126 l .8 2020-10-26 2020-10-26 Travel 1.2.840.1 1.2.407.577 [id number] Methodi 00:00:00 00:00:[address] 3.430.2.7 0.2.7.3.698 Ho spita .3.927547 084.8 l .8 2020-08-30 2020-08-31 Emergency E SHUN, MHSE MHSE [id number] 19:40:00 04:45:00 [facility] 2020-08-30 2020-08-30 Emergency Sky, 1.2.840.1 [id number] Methodi 22:13:00 22:27:[address] Jayjay 3.430.2.7 Hosp nori .3.791957 l .8 2020-08-30 2020-08-30 Travel 1.2.840.1 1.2.223.915 [id number] [id number] Methodi 00:00:00 00:00:[address] 3.430.2.7 0.2.7.3.698 Ho spita .3.149553 084.8 l .8 2020-06-13 2020-06-13 Emergency JUAN Mullen, HCA NATY [id number] 37-20 [facility] 01:48:00 03:32:00 [facility] [id number] [facility] 2019-12-09 2019-12-09 Emergency E JAVI, MHSE MHSE [id number] 08:36:00 11:00:00 MINNIE Posadas [facility] Hospita 2019-07-23 2019-07-23 Telephone [facility] 1.2.222.234 [id number] [facility] 00:00:00 00:00:00 [facility] 350.1.13.10 it y [place] [phone] [facility] 014 Branch (CLC) 2019-07-23 2019-07-23 Telephone [facility], [facility] 1.2.976.094 [id number] 00:00:00 00:00:00 [facility] 350.1.13.10 Clear 4.2.7.2.686 [place] [phone] [facility] 014 (CLC) 2019-07-21 2019-07-22 Emergency Johnson, [facility] 1.2.338.209 [id number] Univers 22:49:31 00:20:00 [facility] 350.1.13.10 it y of [place] 4.2.7.2.686 María [place] [phone] [place] [address] Branch ([facility]) 2019-07-21 2019-07-22 Emergency X JOHNSON, [facility] ERT [id number] Univers 22:49:31 00:20:[address] [facility] 2019-07-21 2019-07-22 Emergency Johnson, [facility] [id number] [id number] 22:49:31 00:20:00 [facility] 350.1.13.10 Clear 4.2.7.2.686 [place] [phone] [place] [address] ([facility]) 2019-04-06 2019-04-06 Emergency E MHSE MHSE [id number] MH 18:36:[facility]:36:[facility] 2019-03-17 2019-03-17 Emergency E MHSE MHSE [id number] MH 08:27:00 08:27:[facility] 2018-12-26 2018-12-26 Emergency E MHSE MHSE 7554 MH 09:24:00 09:24:[facility] 2018-09-16 2018-09-16 Emergency E MHSE MHSE [id number] MH 17:55:00 17:55:[address] [facility] 2018-09-13 2018-09-13 Outpatient E MHBL CHARLA 7552 MHBL 06:15:00 06:15:00 2018-09-12 2018-09-12 Emergency E MHCY MHCY [id number] MHCY 23:48:00 23:48:00 2017-10-08 2017-10-08 Emergency E PRIYANKA [facility] [id number] [place] 11:21:00 13:15:00 [facility] 2017-08-20 2017-08-20 Emergency EM Joy, HCAPM NATY [id number] [facility] 12:26:00 16:32:00 Farida [id number] [facility] [place] 2017-08-19 2017-08-19 Emergency E ROCAEL BETH [facility] 1000 [id number] [place] 15:33:00 18:45:00 Medica l [place] 2017-08-11 2017-08-11 Emergency E JEMMA CRAVEN [facility] 1000 [id number] [place] 11:55:00 13:29:00 Medica l Center 2017-04-27 2017-04-27 Emergency E ROSANA, [facility] [id number] [place] 08:54:00 10:01:00 [facility] 2017-04-20 2017-04-20 Outpatient E TAHIR, [facility] TELE 870 [id number] [place] 11:00:00 14:40:00 EBONY Medica [facility] 2016-12-12 2016-12-12 Emergency E , [facility] [id number] [place] 20:40:00 21:38:[address] [facility] Results Test Description Test Time Test Comments Results Result Comments Source COMP. METABOLIC PANEL (71675) 2021-05-24 23:04:45 Test Item Value Reference Range Interpretation Comme nts NA (test code = 1611627544) 131 mmol/L 135-145 L K (test code = 7219914213) 5.0 mmol/L 3.5-5.0 S light hemolysis CL (test code = 3588185235) 98 mmol/L 98-108 CO2 TOTAL (test code = 22 mmol/L 23-31 L 6096766406) AGAP (test code = 2-16 3828933862) BUN (test code = 9 mg/dL 7-23 Slight hemo lysis 9818795591) GLUCOSE (test code = 437 mg/dL 70-110 H 0225442180) CREATININE (test code = 0.45 mg/dL 0.60-1.25 L 6287556429) TOTAL BILI (test code = 0.6 mg/dL 0.1-1.7 1384193879) CALCIUM (test code = 8.5 mg/dL 8.6-10.6 L 9865246351) T PROTEIN (test code = 7.5 g/dL 6.3-8.2 6412014062) ALBUMIN (test code = 4.0 g/dL 3.5-5.0 2520285165) ALK PHOS (test code = 101 U/L 34-122 Slight hemolysis 9515860632) ALTv (test code = 1742-6) 26 U/L 5-50 AST(SGOT) (test code = 36 U/L 13-[address] [facility] 2366313076) eGFR (test code = mL/min/1.73m2 2697910120) MARLON (test code = MARLON) Association of Glomerular Filtration Rate (GFR) and Staging of Kidney Disease* + + +--- +| GFR (mL/min/1.73 m2) ?| With Kidney Damage ?| ?Without Kidney Damage+ -----+ --+ ---+| ?>90 ?| ?Stage one ?| ? Normal ?+ + +-- +| ?60-89 ?| ?Stage two ?| ? Decreased GFR ? + + +--- +| ?30-59 ?| ?Stage three ?| ? Stage three ? + + +--- +| ?15-29 ?| ?Stage four ? | ? Stage four ?+ + +-- +| ?<15 (or dialysis) ? ?| ?Stage five ? | ? Stage five ?+ + +-- + *Each stage assumes the associated GFR level has been in effect for at least three months. ?Stages 1 to 5, with or without kidney disease, indicate chronic kidney disease. Notes: Determination of stages one and two (with eGFR >59mL/min/1.73 m2) requires estimation of kidney damage for at least three months as defined by structural or functional abnormalities of the kidney, manifested by either:Pathological abnormalities or Markers of kidney damage (including abnormalities in the composition of the blood or urine or abnormalities in imaging tests). Lab Interpretation (test Abnormal code = 12371-5) [facility] 23:04:45 Test Item Value Reference Range Interpretation Comments LIPASE (test code = 3340097451) 38 U/L 0-220 Lab Interpretation (test code = Normal 22627-7) [facility] WITH [id number] 22:52:04 Test Item Value Reference Range Interpretation Comments WBC (test code = See_Comment H [Automated 8590-2) message] The sy stem which generated this result transmitted reference range : 4.20 - 10.70 10*3/?L. The reference range was not used to interpret this result as normal/abnormal . RBC (test code = See_Comment [Automated 789-8) message] The sy stem which generated this result transmitted reference range : 4.26 - 5.52 10*6/?L. The reference range was not used to interpret this result as normal/abnormal . HGB (test code = 12.8 g/dL 12.2-16.4 718-7) HCT (test code = 39.0 % 38.4-49.3 4544-3) MCV (test code = 84.1 fL 81.7-95.6 787-2) MCH (test code = 27.6 pg 26.1-32.7 785-6) MCHC (test code = 32.8 g/dL 31.2-35.0 786-4) RDW-SD (test code = 41.9 fL 38.5-51.6 19110-0) RDW-CV (test code = 13.6 % 12.1-15.4 788-0) PLT (test code = See_Comment H [Automated 777-3) message] The sy stem which generated this result transmitted reference range : 150 - 328 10*3/ ?L. The reference r eileen was not used to interpret this result as normal/abnormal . MPV (test code = 9.5 fL 9.8-13.0 L 63158-2) NRBC/100 WBC (test See_Comment [Automat ed code = 9059888994) message] The system which generated this result transmitted reference range : 0.0 - 10.0 /100 WBCs. The refer ence range was not u sed to interpret th is result as normal/abnormal . NRBC x10^3 (test code <0.01 See_Comment [Auto mated = 8297655714) message] The s ystem which generated this result transmitted reference range : 10*3/?L. The reference range was not used to interpret this result as normal/abnormal . GRAN MAT (NEUT) % 65.6 % (test code = 770-8) IMM GRAN % (test code 0.20 % = 1615160187) LYMPH % (test code = 24.2 % 736-9) MONO % (test code = 4.6 % 5905-5) EOS % (test code = 4.6 % 713-8) BASO % (test code = 0.8 % 706-2) GRAN MAT x10^3(ANC) 7.39 10*3/uL 1.99-6.95 H (test code = 3972091162) IMM GRAN x10^3 (test <0.03 0.00-0.06 code = 8943638054) LYMPH x10^3 (test code 2.72 10*3/uL 1.09-3.23 = 731-0) MONO x10^3 (test code 0.52 10*3/uL 0.36-1.02 = 742-7) EOS x10^3 (test code = 0.52 10*3/uL 0.06-0.53 711-2) BASO x10^3 (test code 0.09 10*3/uL 0.01-0.09 = 704-7) Lab Interpretation Abnormal (test code = 18775-0) [facility] W/AUTO [id number] 08:04:00 Test Item Value Reference Range Interpretation Comments WHITE BLOOD CELL (test code = WBC) 10.0 K/uL 3.5-11.0 N RED BLOOD CELL (test code = RBC) 4.65 M/uL 4.00-5.60 N HEMOGLOBIN (test code = HGB) 13.4 GM/DL 12.5-16.9 N HEMATOCRIT (test code = HCT) 38.2 % 40.0-54.0 L MEAN CELL VOLUME (test code = MCV) 82.2 fL 81.0-99.0 N MEAN CELL HGB (test code = MCH) 28.8 pg 27.0-31.0 N MEAN CELL HGB CONCETRATION (test 35.1 GM/DL 33.0-37.0 N code = MCHC) RED CELL DISTRIBUTION WIDTH CV 14.4 % 11.5-14.5 N (test code = RDW) PLATELET COUNT (test code = PLT) 405 K/mm3 150-400 H MEAN PLATELET VOLUME (test code = 8.9 FL 8.8-13.1 N MPV) NEUTROPHIL % (test code = NT%) 62.3 % 40.0-76.0 N LYMPHOCYTE % (test code = LY%) 29.4 % 15.0-40.0 N MIXED % (test code = MX%) 8.3 % 3.0-15.0 N NEUTROPHIL # (test code = NT#) 6.3 K/uL 1.8-7.6 N LYMPHOCYTE # (test code = LY#) 2.9 K/uL 1.0-3.8 N MIXED # (test code = MX#) 0.8 k/mm3 0.1-0.8 N LIVER [id number] 01:04:00 Test Item Value Reference Range Interpretation Comments TOTAL PROTEIN (test code 8.1 GM/DL 5.0-8.0 H Per formed by = PROT) certified opera tor at [facility] ALBUMIN (test code = 3.5 g/dL 3.4-5.0 N ALB) BILIRUBIN TOTAL (test 0.4 MG/DL 0.0-1.0 N code = BILT) SGOT/AST (test code = 19 IUnit/L 15-37 N AST) SGPT/ALT (test code = 25 IUnit/L 30-65 L ALT) GAMMA GLUTAMYL 45 UNITS/L 5-85 N TRANSPEPTIDASE (test code = GGT) ALKALINE PHOSPHATASE 116 IUNIT/L 20-125 N TOTAL (test code = ALKP) AMYLASE (test code = 20 UNITS/L 25-125 L COLIN) BASIC METABOLIC [id number] 01:02:00 Test Item Value Reference Range Interpretation Comments SODIUM (test code = NA/ABG) 137 MEQ/L 134-147 N POTASSIUM (test code = K/ABG) 3.2 MEQ/L 3.4-5.0 L CHLORIDE (test code = CL/ABG) 96 MEQ/L 100-108 L CREATININE ABG (test code = 0.5 mg/dL 0.8-1.3 L CREAABG) POC IONIZED CALCIUM (test code = 1.18 MMOL/L 1.12-1.32 N POCCA) POC GLUCOSE (test code = POCGLU) 364 MG/DL UA DIPSTICK [id number] 00:41:00 Test Item Value Reference Range Interpretation Comments UA GLUCOSE DIPSTIC POC 3+ NEGATIVE (test code = GLUUP) UA BILIRUBIN DIPSTICK NEGATIVE NEGATIVE (test code = BILU) UA KETONE DIPSTICK POC NEGATIVE NEGATIVE (test code = KETUP) UA SPECIFIC GRAVITY (test 1.015 1.005-1.030 N code = SGU) UA BLOOD DIPSTIC POC NEGATIVE NEGATIVE Perform ed by (test code = BLUP) 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 [facility] UA PH DIPSTIC POC (test 5 5.0-7.0 N code = PHUP) UA PROTEIN DIPSTICK POC NEGATIVE NEGATIVE (test code = DPROUP) UA UROBILINIOGEN QUAL NORMAL 0.2-1.0 (test code = UROQL) UA NITRITE DIPSTICK POC NEGATIVE Negative (test code = NITUP) UA LEUKOCYTE ESTERASE W Negative NEGATIVE REFLEX (test code = LEUUR) - CT ABD PELVIS [id number] 00:00:00 [facility] 1980 Sex: M Name: REZA MAJOR FSED : 1980 Age/S: 41 / M [address] [facility] Unit #: [id number] Loc: [place] [address] Phys: Mino Cardozo MD Acct: [id number] Dis Date: Status: REG ER PHONE #: Exam Date: 05/24/2021 0100 FAX #: Reason: RUQ, RLQ, RIGHT FLANK PAIN EXAMS: CPT CODE: [id number] CT ABD PELVIS W/CONT 65935 PROCEDURE INFORMATION: Exam: CT Abdomen And Pelvis With Contrast Exam date and time: 05/24/2021 12:48 AM Age: 41 years old Clinical indication: Abdominal pain; Additional info: Ruq, rlq, right flank pain TECHNIQUE: Imaging protocol: Computed tomography ofthe abdomen and pelvis with contrast. Radiation optimization: All CT scans at this facility use at least one of these dose optimization techniques: automated exposure control; mA and/or kV adjustment per patient size (includes targeted exams where dose is matched to clinical indication); or iterative reconstruction. Contrast material: ISOVUE 300; Contra st volume: 100 ml; Contrast route: INTRAVENOUS (IV); COMPARISON: CT ABD PELVISW/CONT 06/13/2020 2:44 AM FINDINGS: Lungs: There is nonspecific mosaic ground-glass attenuation of the visible lung bases, similar to the previous CT. The there are several scattered pulmonary nodules at the visible lung bases, left more than right, measuring as largeas 7 mm. Compared to the previous CT, there is grossly no significant change. Liver: Unremarkable. No mass. Gallbladder and bile ducts: Cholecystectomy clips are in place. Pancreas: There is generalized fatty replacement of the pancreas. No acute pancreatic abnormalities are visualized. Spleen: Unremarkable. No splenomegaly. Adrenal glands: Normal. No mass. Kidneys and ureters: Unremarkable. No hydronephrosis. Stomach and bowel: The stomach and bowel loops are grossly unremarkable. There is no evidence of bowel obstruction. Appendix: The appendix measures 10 mm in diameter, above the normal upper limit; however, the appendix is not filled with fluid and no periappendiceal inflammatory changes are seen. Intraperitoneal space: No free air or free fluid are seen. Vasculature: The abdominal aortais grossly patent and normal in caliber, without evidence of dissection. Lymph nodes: No suspicious lymphadenopathy is identified. Urinary bladder: Unremarkable as visualized. Reproductive: Unremarkable as visualized. Bones/joints: No acute bony abnormalities are seen. Soft tissues: Unremarkable. IMPRESSION: PAGE 1 Signed R eport (CONTINUED) Name: REZA MAJOR FSED : 1980 Age/S: 41 / M [address] [facility]. Unit #: [id number] Loc: [place] [address] Phys: Mino Cardozo MD Acct: [id number] Dis Date: Status: REG ER PHONE #: Exam Date: 05/24/2021 0100 FAX#: Reason: RUQ, RLQ, RIGHT FLANK PAIN EXAMS: CPT CODE: [id number] CT ABD PELVIS [id number] <Continued> 1. By size criteria, the appendix is abnormal; however, there are no appreciable inflammatory changes of the appendix to suggest acute appendicitis. Correlation with clinical presentation is needed. 2. Grossly stable nonspecific mosaic ground-glass attenuation of the visible lung bases, associated with severalpulmonary nodules, measuring as large as 7 mm. For patients at low risk (minimal or absent history of smoking and of other known risk factors), recommend CT Chest at 3-6 months, then consider CT Chest at 18-24 months. For patients at high risk (history of smoking orof other known risk factors), recommend CT Chest at 3-6 months, then CT Chest at 18-24 months. (Reference: Angela) REFERENCES: Angela Cross et al. Guidelines for Management of Incidental Pulmonary Nodules Detected on CT Images: From the [facility] 2017. Radiology. 2017;284(1):228-243. at 0124 Reported and signed by: Russ Brock M.D. CC: Mino Cardozo MD Technologist:Mariella Johnson, RT(R)(CT) CTDI: DLP: Trnscb Date/Time: 05/24/2021 (0124) t.SDR.BP7 Orig Print D/T: S: 05/24/2021 (0124) PAGE 2 Signed ReportCBC WITH [id number] 18:45:37 Test Item Value Reference Range Interpretation Comments WBC (test code = See_Comment [Automated 0587-2) message] The sy stem which generated this result transmitted reference range : 4.20 - 10.70 10*3/?L. The reference range was not used to interpret this result as normal/abnormal . RBC (test code = See_Comment [Automated 549-8) message] The sy stem which generated this result transmitted reference range : 4.26 - 5.52 10*6/?L. The reference range was not used to interpret this result as normal/abnormal . HGB (test code = 12.4 g/dL 12.2-16.4 718-7) HCT (test code = 37.1 % 38.4-49.3 L 4544-3) MCV (test code = 85.5 fL 81.7-95.6 787-2) MCH (test code = 28.6 pg 26.1-32.7 785-6) MCHC (test code = 33.4 g/dL 31.2-35.0 786-4) RDW-SD (test code = 44.1 fL 38.5-51.6 13994-3) RDW-CV (test code = 14.0 % 12.1-15.4 788-0) PLT (test code = See_Comment H [Automated 777-3) message] The sy stem which generated this result transmitted reference range : 150 - 328 10*3/ ?L. The reference r eileen was not used to interpret this result as normal/abnormal . MPV (test code = 8.9 fL 9.8-13.0 L 87859-7) NRBC/100 WBC (test See_Comment [Automat ed code = 8140358413) message] The system which generated this result transmitted reference range : 0.0 - 10.0 /100 WBCs. The refer ence range was not u sed to interpret th is result as normal/abnormal . NRBC x10^3 (test code <0.01 See_Comment [Auto mated = 4917605847) message] The s ystem which generated this result transmitted reference range : 10*3/?L. The reference range was not used to interpret this result as normal/abnormal . GRAN MAT (NEUT) % 61.9 % (test code = 770-8) IMM GRAN % (test code 0.10 % = 8403470237) LYMPH % (test code = 26.4 % 736-9) MONO % (test code = 7.0 % 5905-5) EOS % (test code = 3.8 % 713-8) BASO % (test code = 0.8 % 706-2) GRAN MAT x10^3(ANC) 4.72 10*3/uL 1.99-6.95 (test code = 6702019033) IMM GRAN x10^3 (test <0.03 0.00-0.06 code = 6826984622) LYMPH x10^3 (test code 2.01 10*3/uL 1.09-3.23 = 731-0) MONO x10^3 (test code 0.53 10*3/uL 0.36-1.02 = 742-7) EOS x10^3 (test code = 0.29 10*3/uL 0.06-0.53 711-2) BASO x10^3 (test code 0.06 10*3/uL 0.01-0.09 = 704-7) Lab Interpretation Abnormal (test code = 21903-6) [facility] METABOLIC PANEL (76688)2021-02-23 18:22:11 Test Item Value Reference Range Interpretation Comments NA (test code = 135 mmol/L 135-145 0731868646) K (test code = 3.9 mmol/L 3.5-5.0 3617027040) CL (test code = 99 mmol/L 98-108 2476552390) CO2 TOTAL (test code = 23 mmol/L 23-31 4784679746) AGAP (test code = 2-16 9867918277) BUN (test code = 11 mg/dL 7-23 2040691495) GLUCOSE (test code = 331 mg/dL 70-110 H 3635856523) CREATININE (test code = 0.47 mg/dL 0.60-1.25 L 7756054623) TOTAL BILI (test code = 0.5 mg/dL 0.1-1.8 6676417169) CALCIUM (test code = 9.1 mg/dL 8.6-10.6 6525594294) T PROTEIN (test code = 7.2 g/dL 6.3-8.2 2895336644) ALBUMIN (test code = 3.9 g/dL 3.5-5.0 7753413398) ALK PHOS (test code = 94 U/L 34-122 1518006778) ALTv (test code = 25 U/L 5-50 2-6) AST(SGOT) (test code = 27 U/L 13-40 7525033652) eGFR (test code = mL/min/1.73m2 8958124207) MARLON (test code = MARLON) Association of Glomerular Filtration Rate (GFR) and Staging of Kidney Disease* + --+ --+ ------+| GFR (mL/min/1.73 m2) ?| With Kidney Damage ?| ?Without Kidney Damage+ --------+ --------+ +| ?>90 ?| ?Stage one ?| ? Normal ?+ ---+ ---+ -------+| ?60-89 ?| ?Stage two ?| ? Decreased GFR ? + --+ --+ ------+| ?30-59 ?| ?Stage three ?| ? Stage three ? + --+ --+ ------+| ?15-29 ?| ?Stage four ? | ? Stage four ?+ ---+ ---+ -------+| ?<15 (or dialysis) ? ?| ?Stage five ? | ? Stage five ?+ ---+ ---+ -------+ *Each stage assumes the associated GFR level has been in effect for at least three months. ?Stages 1 to 5, with or without kidney disease, indicate chronic kidney disease. Notes: Determination of stages one and two (with eGFR >59mL/min/1.73 m2) requires estimation of kidney damage for at least three months as defined by structural or functional abnormalities of the kidney, manifested by either:Pathological abnormalities or Markers of kidney damage (including abnormalities in the composition of the blood or urine or abnormalities in imaging tests). Lab Interpretation Abnormal (test code = 99978-2) [facility] 17:33:47 Test Item Value Reference Range Interpretation Comments POCT GLU (test code = 1561343843) 362 mg/dL 70-110 H Lab Interpretation (test code = Abnormal 78599-0) [facility] [id number] 01:03:00 Test Item Value Reference Range Interpretation Comments UA GLUCOSE DIPSTIC POC NEGATIVE NEGATIVE (test code = GLUUP) UA BILIRUBIN DIPSTICK NEGATIVE NEGATIVE (test code = BILU) UA KETONE DIPSTICK POC NEGATIVE NEGATIVE (test code = KETUP) UA SPECIFIC GRAVITY (test 1.010 1.005-1.030 N code = SGU) UA BLOOD DIPSTIC POC NEGATIVE NEGATIVE Perform ed by (test code = BLUP) 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 [facility] UA PH DIPSTIC POC (test 5 5.0-7.0 N code = PHUP) UA PROTEIN DIPSTICK POC NEGATIVE NEGATIVE (test code = DPROUP) UA UROBILINIOGEN QUAL NORMAL 0.2-1.0 (test code = UROQL) UA NITRITE DIPSTICK POC NEGATIVE Negative (test code = NITUP) UA LEUKOCYTE ESTERASE W Negative NEGATIVE REFLEX (test code = LEUUR) - XR HIP W/PEL UNI 2+V [id number] 00:00:00 [facility] 1980 Sex: M FAX: Y Danny Ge MD [phone] [place]: [place] St: REG Name: REZA MAJOR [place] FSED : 1980 Age/S: 40/M [address] [facility] Unit #: [id number] Loc: [place] [address] Phys: Danny Ge MD Acct: [id number] Dis Date: Status: REG ER PHONE #: Exam Date: 12/16/2020 0043 FAX #: Reason: pain after fall EXAMS: CPT CODE: [id number] XR HIP W/PEL UNI 2+[place] [address] PROCEDURE INFORMATION: Exam: XR Left Hip Exam date and time: 12/16/2020 12:17 AM Age: 40 years old Clinical indication: Hip pain; Left hip; Additional info: Pain after fall TECHNIQUE: Imaging protocol: XR Left hip. Views: 2 or 3 views hip with pelvis when performed. AP 1 view pelvis with 2 views hip COMPARISON: CT ABD PELVIS W/CONT 06/13/2020 2:44 AM FINDINGS: Bones/joints: There is normal alignment of the hip without fractures or dislocations. The acetabulum is unremarkable. The visualized sacroiliac joint and symphysis pubis are unremarkable. Soft tissues: There are no radio-opaque foreign bodies. IMPRESSION: No acute findings. at 0105 Reported and signed by: Alfredo Galdamez M.D. CC: Danny Ge MD Technologist: Mariella Johnson, RT(R)(CT) Trnscrd Date/Time/By: 12/16/2020 (104) : By: Margarita Orig Print D/T: S: 12/16/2020 (104) PAGE 1 Signed Report- XR FEMUR MIN 2 S [id number] 00:00:00 [facility] : 1980 Sex: M FAX: Danny Celaya MD [phone] [place]: [place] [address]: REG Name: REZA MAJOR FSED : 1980 Age/S: 40/M [address] [facility] Unit #: [id number] Loc: [place] [address] Phys: aDnny Ge MD Acct: [id number] Dis Date: Status: REG ER PHONE #: Exam Date: 12/16/2020 0043 FAX #: Reason: pain after fall EXAMS: CPT CODE: [id number] XR FEMUR MIN 2 VWSLT 37096 PROCEDURE INFORMATION: Exam: XR Left Femur Exam date and time: 12/16/2020 12:17 AM Age: 40 years old Clinical indication: Pain; Hip; Left; Additional info: Pain after fall TECHNIQUE: Imaging protocol: XR Left femur. Views: 2 views. COMPARISON: CT ABD PELVIS W/CONT 06/13/2020 2:44 AM FINDINGS: Bones/joints: No acute bony abnormalities are seen. The joint spaces of the hip and knee are grossly maintained. Soft tissues: The soft tissues are radiographically unremarkable. No radiopaque foreign bodies or subcutaneous emphysema are identified. IMPRESSION: No acute bony abnormalities are visualized. at 0106 Reported and signed by: Miles Hoffmann CC: Danny Ge MD Technologist: Mariella Johnson RT(R)(CT) Trnscrd Date/Time/By: 12/16/2020 (0106) : By: [email or web address] Orig Print D/T: S: 12/16/2020 (0106) PAGE 1 Signed ReportDRUGS OF ABUSE SCREEN UR 2020-12-12 01:58:00 Test Item Value Reference Range Interpretation Comments URN COCAINE (test code NEGATIVE NEGATIVE = COCAURN) URN CANNABINOIDS (test NEGATIVE NEGATIVE code = CANNABURN) URN AMPHETAMINE (test NEGATIVE NEGATIVE code = AMPHETURN) URN BARBITURATE (test NEGATIVE NEGATIVE code = BARBITURN) URN BENZODIAZEPINE NEGATIVE NEGATIVE Cut-off v alue:200 (test code = BENZOURN) ng/mL URN OPIATES (test code NEGATIVE NEGATIVE Cut-o ff value:2000 = OPIATURN) ng/mL URN PHENCYCLIDINE (PCP) NEGATIVE NEGATIVE Cuto ffs:Barbiturates (test code = PHENCURN) 200 ng/mLBenzodiaze pines 200 ng/ mLTHC Cannabinoids 50 ng/mLOpiates(Mo rphine) 2000 ng/mLAmphetamin e 1000 ng/mLCocaine 300 ng/ mLPCP phencyclidine 25 ng/mL Unconf irmed screening resul ts shouldnot be us ed for non-medical pur poses. URINALYSIS [id number] 01:49:00 Test Item Value Reference Range Interpretation Comments UA COLOR (test code = COLU) STRAW YEL/STRAW UA APPEARANCE (test code = CLEAR CLEAR APPU) UA GLUCOSE DIPSTICK (test code 3+ NEGATIVE A = DGLUU) UA BILIRUBIN DIPSTICK (test NEGATIVE NEGATIVE code = BILU) UA KETONE DIPSTICK (test code NEGATIVE NEGATIVE = KETU) UA SPECIFIC GRAVITY (test code 1.031 1.005-1.030 H = SGU) UA BLOOD DIPSTICK (test code = NEGATIVE NEGATIVE JOSUE) UA PH DIPSTICK (test code = 6.0 5.0-7.0 N DONELL) UA PROTEIN DIPSTICK (test code NEGATIVE NEGATIVE = PROU) UA UROBILINIOGEN DIPSTICK 0.2 mg/dL 0.2-1.0 (test code = URO) UA NITRITE DIPSTICK (test code NEGATIVE NEGATIVE = RENETTA) UA LEUKOCYTE ESTERASE DIPSTICK TRACE NEGATIVE A (test code = LEUU) UA RBC (test code = RBCU) 11-20 RBC/HPF 0-3 UA WBC NO REFLEX (test code = 0-3 WBC/HPF 0-3 WBCUCL) UA BACTERIA (test code = BACU) NONE SEEN /HPF NONE SEEN UA SQUAMOUS CELLS (test code = 0-5 /HPF NONE SEEN SQU) UA YEAST (BUDDING) (test code 2+ /HPF NONE A = YEASTUBD) [id number] 01:35:00 Test Item Value Reference Range Interpretation Comments GLUBED (test code = 384 MG/DL 70-110 H Performe d by certified GLUBED) 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 [facility] ECG 12 [id number] 20:56:20 Test Item Value Reference Range Interpretation Comments Ventricular rate (test code = 253) Atrial rate (test code = 255) KS interval (test code = 266) QRSD interval (test code = 260) QT interval (test code = 264) QTC interval (test code = 265) P axis 1 (test code = 267) QRS axis 1 (test code = 268) T wave axis (test code = 270) EKG impression (test code Normal sinus = 273) rhythm-Normal ECG-- [facility] Renal Stone [id number] 10:06:00 Examination: CT RENAL STONE PROTOCOLClinical history: "Flank pain kidney stone suspected, right side" Comparison: 02/17/2017Technique: Multiple axial CT images of the abdomen and pelvis were obtained without the intravenous administration of iodinated contrast. Sagittal and coronal computerized, reformatted images were obtained and archived. The lack of intravenous contrast reduces the sensitivity of detecting solid organ and vascular disease. CT scans are performed using radiation dose reduction techniques. Technical factors are evaluated and adjusted to ensure appropriate moderation of exposure. Automated dose management technology is applied to adjust radiation exposure while achieving a diagnostic quality image. Findings: Genitourinary system: No renal calculi are seen within either kidney, either ureter, or the urinary bladder. No focal abnormalities such as cysts or solid masses are seen within either kidney. There is no evidence of right-sided or left-sided hydronephrosis or hydroureter. The urinary bladder is unremarkable in appearance. Abdomen: The absence of intravenous contrast limits visceral evaluation. The abdominal aorta and its major branches are without evidence of significant calcific atherosclerosis. There is no evidence of abdominal aortic aneurysm. Evaluation for the possibility of aortic dissection is not possible g iven the absence of intravenous contrast. There is no retroperitoneal or mesenteric lymphadenopathy. Evaluation of abdominal viscera is as follows: Liver: No solid masses or biliary ductal dilatation. The attenuation of the liver is borderline low; hepatic steatosis is possible.Gallbladder: The ga llbladder has been surgically removed.Adrenal glands: Unremarkable appearance.Spleen: Not enlargedand otherwise unremarkable in appearance. A subcentimeter hypodensity, likely a cyst, is noted within the spleen.Pancreas: No focal masses or ductal dilatation.Bowel: There are no apparent bowel masses or bowel dilatation. The appendix is unremarkable in appearance. Pelvis: There is no pelvic lymphadenopathy identified. There is no evidence of a pelvic mass. A subcentimeter calcification is noted within the subcutaneous penile tissues, incidentally. Other: Within the imaged portions of both lung bases, mild mosaic attenuation and bilateral pulmonary nodules measuring 5 mm or less are noted within both lungs. Within the imaged bones, there are no acute abnormalities identified. Impression: Unremarkable genitourinary system; specifically, no urinary calculi are identified within either kidney, either ureter, or the urinary bladder. Multiple, bilateral pulmonary nodules measuring 5 mm or less are identified within both lung bases with mosaic attenuation opacification as describedabove. Please consider chest CT imaging for a more definitive evaluation. Probable hepatic steatosis. [facility], Radiology Results Incoming - 10/26/2020 5:09 AM CDT Examination: CT RENAL STONE PROTOCOLClinical history: "Flank pain kidney stone suspected, right side" Comparison: 02/17/2017Technique: Multiple axial CT images of the abdomen and pelvis were obtained without the intravenous administration of iodinated contrast. Sagittal and coronal computerized, reformatted images were obtained and archived. The lack of intravenous contrast reduces the sensitivity of detecting solid organ and vascular disease. CT scans are performed using radiation dose reduction techniques. Technical factors are evaluatedand adjusted to ensure appropriate moderation of exposure. Automated dose management technology is applied to adjust radiation exposure while achieving a diagnostic quality image. Findings:Genitourinary system: No renal calculi are seen within either kidney, either ureter, or the urinary bladder. No focal abnormalities such as cysts or solid masses are seen within eitherkidney. There is no evidence of right-sided or left-sided hydronephrosis or hydroureter. The urinary bladder is unremarkable in appearance.Abdomen: The absence of intravenous contrast limits visceral evaluation.The abdominal aorta and its major branches are without evidence of significant calcific atherosclerosis. There is no evidence of abdominal aortic aneurysm. Evaluation for the possibility of aortic dissection is not possible given the absence of intravenous contrast. There is no retroperitoneal or mesenteric lymphadenopathy.Evaluation of abdominal viscera is as follows:Liver: No solid masses or biliary ductal dilatation. The attenuation of the liver is borderline low; hepatic steatosis is possible.Gallbladder: The gallbladder has been surgically removed.Adrenal glands: Unremarkable appearance.Spleen: Not enlarged and otherwise unremarkable in appearance. A subcentimeter hypodensity, likely a cyst, is noted within the spleen.Pancreas: No focal masses or ductal dilatation.Bowel: There are no apparent bowel masses or bowel dilatation. The appendix is unremarkable in appearance.Pelvis: There is no pelvic lymphadenopathy identified. There is no evidence of a pelvic mass. A subcentimeter calcification is noted within the subcutaneous penile tissues, incidentally.Other: Within the imaged portions of both lung bases, mild mosaic attenuation and bilateral pulmonary nodulesmeasuring 5 mm or less are noted within both lungs. Within the imaged bones, there are no acute abnormalities identified.Impression:Unremarkable genitourinary system; specifically, no urinary calculi are identified within either kidney, either ureter, or the urinary bladder.Multiple, bilateral pulmonary nodules measuring 5 mm or less are identified within both lung bases with mosaic attenuation opacification as described above. Please consider chest CT imaging for a more definitive evaluation.Probable hepatic steatosis.[facility] Chest Wo [id number] 10:00:04CT CHEST WO CONTRAST CLINICAL INDICATION: right rib fracture TECHNIQUE: Multidetector CT imaging ofthe chest was performed without intravenous contrast with multiplanar reconstructions. CT scans areperformed using radiation dose reduction techniques (iterative reconstruction and/or automated exposure control). Technical factors are evaluated and adjusted to ensure appropriate moderation of exposure. Automated dose management technology is applied to adjust radiation exposure while achieving a diagnostic quality image. COMPARISON: Chest radiograph 10/26/2020. FINDINGS: Lungs and large airways: Mildly decreased lung volumes with hypoventilatory change. Pleura: No pleural effusion, pleural thickening, or pneumothorax. Heart and pericardium: Heart size is normal. No pericardial effusion. Vessels: Grossly no aortic aneurysm. Main pulmonary artery measures 2.6 cm. Evaluation of vessel lumens is limited due to lack of IV contrast. Mediastinum and brynn: No mass or hematoma. Lymph nodes: No pathological adenopathy in the brynn, axilla or mediastinum. Chest wall: Mild bilateral gynecomastia. Bones: No acute osseous abnormality. Upper abdomen: Reported separately. IMPRESSION: Negative CT foracute thoracic abnormality. [facility]-[id number] [facility], Radiology Results 10/26/2020 5:[address] CHEST WO CONTRASTCLINICAL INDICATION: right rib fractureTECHNIQUE: Multidetector CT imaging of the chest was performed withoutintravenous contrast with multiplanar reconstructions. CT scans are performed using radiation dose re duction techniques (iterative reconstruction and/or automated exposure control). Technical factors are evaluated and adjusted to ensure appropriate moderation of exposure. Automated dose management technology is applied to adjust radiation exposure while achieving a diagnostic quality image.COMPARISON: Chest radiograph 10/26/2020. FINDINGS:Lungs and large airways: Mildly decreased lung volumes with hypoventilatory change.Pleura: No pleural effusion, pleural thickening, or pneumothorax.Heart and pericardium: Heart size is normal. No pericardial effusion. Vessels: Grossly no aortic aneurysm. Mainpulmonary artery measures 2.6 cm. Evaluation of vessel lumens is limited due to lack of IV contrast.Mediastinum and brynn: No mass or hematoma.Lymph nodes: No pathological adenopathy in the brynn, axilla or mediastinum.Chest wall: Mild bilateral gynecomastia. Bones: No acute osseous abnormality.Upperabdomen: Reported separately. IMPRESSION:Negative CT for acute thoracic abnormality.[facility]-[id number] [facility] – MarshallXR Chest 1 [id number] 08:47:15Examination: XR CHEST 1 PORTABLE Clinical History: SOB Comparison: 09/09/2017 Technique: Single frontal view of the chest is obtained. Findings:Low lung volume with vascular crowding or congestion is noted.The heart size is normal.No pleural effusion is seen. Impression:Low lung volume with vascular crowding or congestion but otherwise no acute infiltrate. [id number] Interface, Radiology Results Incoming - 10/26/2020 3:50 AM CDT Examination: XR CHEST 1 PORTABLEClinical History: SOBComparison: 09/09/2017Technique: Single frontal view of the chest is obtained.Findings:Low lung volume with vascular crowding or congestion is noted.The heart size is normal.No pleural effusion is seen.Impression:Low lung volume with vascular crowding or congestion but otherwise no acute infiltrate.[id number] ED Preliminary Interpretation - Not an [id number] 08:26:55Gifty Quispe MD 10/26/2020 5:01 [facility] ED Preliminary Interpretation - Not an OrderPerformed by: Gifty Quispe MDAuthorized by: Gifty Quispe MD Rate: ECG rate: 73 ECG rate assessment: normal Rhythm: Rhythm: sinus rhythm Ectopy: Ectopy: none QRS: QRS axis: Normal QRS intervals: NormalConduction: Conduction: normal ST segments: ST segments: Non-specificT waves: T waves: non-specific[facility] [id number] 08:21:12 Test Item Value Reference Range Interpretation Comments POC glucose (test code = 24219-9) 355 mg/dL 65-99 HH Lab Interpretation (test code = Abnormal 64746-6) [facility]- CT ABD PELVIS W/[id number] 03:18:00 [facility] 1980 Sex: M Name: REZA MAJOR [facility] : 1980 Age/S: 40 / M [address] [place] [address] Blvd Unit #: [id number] Loc: [place] [address] Phys: Jacinto Mullen MD Acct: [id number] Dis Date: Status: REG ER PHONE #: [phone] Exam Date: 06/13/2020238 FAX #: [phone] Reason: PAIN WITH TRAUMA EXAMS: CPT CODE: [id number] CT ABD PELVIS W/CONT 42653 STUDY: - CT CHEST W/CONTRAST, - CT ABD PELVIS W/CONT 06/13/2020 2:00 AM Ordering Physician: Jacinto Mullen MD Patient Name: REZA MAJOR MR: [id number] : 1980; Age: 40 years y/o Male Clinical Indication: Chest and abdominal pain related to trauma. Comparison: None TECHNIQUE: Multiple contiguous postcontrast transaxial CT images were obtained from the base of the neck through the symphysis pubis. Sagittal and coronal reformatted images were prepared. CT imaging performed at this location utilizes radiation dose optimization techniques which include one or more of the following: - Automated exposure control -Adjustment of the mA and/or kV according to patient size -Use of iterative reconstruction technique IV CONTRAST: 100 mL [id number] Radiation Dose DLP: 1531.16 mGy-cm FINDINGS: CT CHEST WITH CONTRAST: LUNGS: Well inflated lungs associated with innumerable tiny groundglass nodules throughout both lungs best demonstrated in the upper lobes and lung apices. Mildbilateral basilar subsegmental atelectasis and scarring. Scattered subpleural bullae in both lung bases. Scattered indeterminate solid pulmonary nodules mainly peripherally in both lungs greatest in the upper lobes and lung apices ranging from 2-5 mm. No pleural effusion or pneumothorax. AIRWAY: Clear central tracheobronchial tree. PAGE 1 Signed Report (CONTINUED) Name: REZA MAJOR [facility] : 1980 Age/S: 40 / M [address] [place] [address] Blvd Unit #: [id number] Loc: [place] [address] Phys: Jacinto Mullen MD Acct: [id number] Dis Date: Status: REG ER PHONE #: [phone] Exam Date: 06/13/2020 023 FAX #: [phone] Reason: PAIN WITH TRAUMA EXAMS: CPT CODE: [id number] CT ABD PELVIS W/CONT 00616 <Continued> HEART: Mild cardiomegaly associated with trace pericardial effusion and prominent pericardial fat. THORACIC AORTA: Normal caliber without aneurysm or dissection. PULMONARY ARTERIES: No evidence of central pulmonary embolus. MEDIASTINUM AND BRYNN: Scattered small mediastinal and bilateral hilar lymph [...] peritoneal fat: Normal without focal lesion or inflammation.LYMPH NODES: Scattered subcentimeter central mesenteric and retroperitoneal lymph nodes without lymphadenopathy or mass. VASCULAR: Abdominal Aorta: Normal caliber abdominal aorta without aneurysm or dissection. IVC: Normal. PAGE 2 Signed Report (CONTINUED) Name: REZA MAJOR : 1980 Age/S: 40 / M [address] [place], [place] [address]vd Unit #:[id number] Loc: [place] [address] Phys: Jacinto Mullen MD Acct: [id number] Dis Date: Status: REG ER PHONE #: [phone] Exam Date: 06/13/2020238 FAX #: [phone] Reason: PAIN WITH TRAUMA EXAMS: CPT CODE: [id number] CT ABD PELVIS W/CONT 19319 <Continued> ABDOMINAL ORGANS: Liver: Normal size liver [...] OSSEOUS STRUCTURES: No fracture, dislocation, or suspicious focalosseous lesion. IMPRESSION: No acute fracture, dislocation, or [...] MAJOR : 1980 Age/S: 40 / M [address] [place], [place] [address] Unit #: [id number] Loc: [place] [address] Phys: Jacinto Mullen MD Acct: [id number] Dis Date: Status: REG ER PHONE #: [phone] Exam Date: 06/13/2020238FAX #: [phone] Reason: PAIN WITH TRAUMA EXAMS: CPT CODE: [id number] CT ABD PELVIS W/CONT 36588 <Continued> No definite acute thoracic spine fracture is appreciated. Follow-up MR could be obtained for confirmation if thoracic pain is present. Innumerable tiny groundglass nodules throughout both lungs greatest in the upper lobes and lung apices most likely an infectious or inflammatory etiology or possibly hypersens itivity pneumonitis. Additionally, several scattered more solid- appearing pulmonary nodules are seen ranging from 3-5 mm. Clinical correlation and short interval follow-up CT chest is recommended. Mild cardiomegaly associated with trace pericardial effusion and prominent pericardial fat. Cholecystectomy with mild central biliary ductal dilatation likely physiological in nature related to reservoir effect.Subcentimeter benign-appearing calcified hepatic lesion versus a calcified granuloma. SL: TPAINTER-H at 0318 Reported and signed by: Evangelista Foster M.D. CC: Jacinto Mullen MD Technologist:Danny Jackson, RT(R)(CT) CTDI: DLP: Trnscb Date/Time: 06/13/2020 (317) [email or web address] Orig Print D/T: S: 06/13/2020 (320) PAGE 4 Signed Report- CT CHEST W/[id number] 03:18:00 [facility] 1980 Sex: M Name: REZA MAJOR [facility] : 1980 Age/S: 40 / M [address] [place] [address] Blvd Unit #: [id number] Loc: [facility] [place] [address] Phys: Jacinto Mullen MD Acct: [id number] Dis Date: Status: REG ER PHONE #: [phone] Exam Date: 06/13/2020238 FAX #: [phone] Reason: PAIN WITH TRAUMA EXAMS: CPT CODE: [id number] CT CHEST W/CONTRAST 56071 STUDY: - CT CHEST W/CONTRAST, - CT ABD PELVIS W/CONT 06/13/2020 2:00 AM Ordering Physician: Jacinto Mullen MD Patient Name: REZA MAJOR MR: [id number] : 1980; Age: 40 years y/o Male Clinical Indication: Chest and abdominal pain related to trauma. Comparison: None TECHNIQUE: Multiple contiguous postcontrast transaxial CT images were obtained from the base of the neck through the symphysis pubis. Sagittal and coronal reformatted images were prepared. CT imaging performed at this location utilizes radiation dose optimization techniques which include one or more of the following: - Automated exposure control -Adjustment of the mA and/or kV according to patient size -Use of iterative reconstruction technique IV CONTRAST: 100 mL [id number] Radiation Dose DLP: 1531.16 mGy-cm FINDINGS: CT CHEST WITH CONTRAST: LUNGS: Well inflated lungs associated with innumerable tiny groundglass nodules throughout both lungs best demonstrated in the upper lobes and lung apices. Mildbilateral basilar subsegmental atelectasis and scarring. Scattered subpleural bullae in both lung bases. Scattered indeterminate solid pulmonary nodules mainly peripherally in both lungs greatest in the upper lobes and lung apices ranging from 2-5 mm. No pleural effusion or pneumothorax. AIRWAY: Clear central tracheobronchial tree. PAGE 1 Signed Report (CONTINUED) Name: REZA MAJOR [facility] : 1980 Age/S: 40 / M [address] [place] [address] Blvd Unit #: [id number] Loc: [place] [address] Phys: Jacinto Mullen MD Acct: [id number] Dis Date: Status: REG ER PHONE #: [phone] Exam Date: 06/13/2020238 FAX #: [phone] Reason: PAIN WITH TRAUMA EXAMS: CPT CODE: [id number] CT CHEST W/CONTRAST 32679 <Continued> HEART: Mild cardiomegaly associated with trace pericardial effusion and prominent pericardial fat. THORACIC AORTA: Normal caliber without aneurysm or dissection. PULMONARY ARTERIES: No evidence of central pulmonary embolus. MEDIASTINUM AND BRYNN: Scattered small mediastinal and bilateral hilar lymph [...] peritoneal fat: Normal without focal lesion or inflammation.LYMPH NODES: Scattered subcentimeter central mesenteric and retroperitoneal lymph nodes without lymphadenopathy or mass. VASCULAR: Abdominal Aorta: Normal caliber abdominal aorta without aneurysm or dissection. IVC: Normal. PAGE 2 Signed Report (CONTINUED) Name: REZA MAJOR [facility] Neftaly Espino ke : 1980 Age/S: 40 / M [address] [place], [place] [address] Unit #:[id number] Loc: [place] [address] Phys: Jacinto Mullen MD Acct: [id number] Dis Date: Status: REG ER PHONE #: [phone] Exam Date: 06/13/2020 0239 FAX #: [phone] Reason: PAIN WITH TRAUMA EXAMS: CPT CODE: [id number] CT CHEST W/CONTRAST 32517 <Continued> ABDOMINAL ORGANS: Liver: Normal size liver [...] OSSEOUS STRUCTURES: No fracture, dislocation, or suspicious focalosseous lesion. IMPRESSION: No acute fracture, dislocation, or [...] 3 Signed Report (CONTINUED) Name: REZA MAJOR [facility] : 1980 Age/S: 40 / M [address] [place] [address] Blvd Unit #: [id number] Loc: [place] [address] Phys: Jacinto Mullen MD Acct: [id number] Dis Date: Status: REG ER PHONE #: [phone] Exam Date: 06/13/2020 0239FAX #: [phone] Reason: PAIN WITH TRAUMA EXAMS: CPT CODE: [id number] CT CHEST W/CONTRAST 52617 <Continued> No definite acute thoracic spine fracture is appreciated. Follow-up MR could be obtained for confirmation if thoracic pain is present. Innumerable tiny groundglass nodules throughout both lungs greatest in the upper lobes and lung apices most likely an infectious or inflammatory etiology or possibly hypersens itivity pneumonitis. Additionally, several scattered more solid- appearing pulmonary nodules are seen ranging from 3-5 mm. Clinical correlation and short interval follow-up CT chest is recommended. Mild cardiomegaly associated with trace pericardial effusion and prominent pericardial fat. Cholecystectomy with mild central biliary ductal dilatation likely physiological in nature related to reservoir effect.Subcentimeter benign-appearing calcified hepatic lesion versus a calcified granuloma. SL: TPAINTER-H at 0318 Reported and signed by: Evangelista Foster M.D. CC: Jacinto Mullen MD Technologist:Danny Jackson, RT(R)(CT) CTDI: DLP: Trnscb Date/Time: 06/13/2020 (317) [email or web address] Orig Print D/T: S: 06/13/2020 (320) PAGE 4 Signed Report- CT CHEST W/[id number] 03:18:00 [facility] : 1980 Sex: M Name: REZA MAJOR [facility] : 1980 Age/S: 40 / M [address] [place] [address] Unit #: [id number] Loc: [place] [address] Phys: Jacinto Mullen MD Acct: [id number] Dis Date: Status: DEP ER PHONE #: [phone] Exam Date: 06/13/2020238 FAX #: [phone] Reason: PAIN WITH TRAUMA EXAMS: CPT CODE: [id number] CT CHEST W/CONTRAST 86645 STUDY: - CT CHEST W/CONTRAST, - CT ABD PELVIS W/CONT 06/13/2020 2:00 AM Ordering Physician: Jacinto Mullen MD Patient Name: REZA MAJOR MR: [id number] : 1980; Age: 40 years y/o Male Clinical Indication: Chest and abdominal pain related to trauma. Comparison: None TECHNIQUE: Multiple contiguous postcontrast transaxial CT images were obtained from the base of the neck through the symphysis pubis. Sagittal and coronal reformatted images were prepared. CT imaging performed at this locationutilizes radiation dose optimization techniques which include one or more of the following: - Automated exposure control -Adjustment of the mA and/or kV according to patient size -Use of iterative reconstruction technique IV CONTRAST: [id number] Radiation Dose DLP: 1531.16 mGy-cm FINDINGS: CT CHEST WITH CONTRAST: LUNGS: Well inflated lungs associated with innumerable tiny groundglass nodules throughout both lungs best demonstrated in the upper lobes and lung apices. Mild bilateral basilar subsegmental atelectasis and scarring. Scattered subpleural bullae in both lung bases. Scattered indeterminate solid pulmonary nodules mainly peripherallyin both lungs greatest in the upper lobes and lung apices ranging from 2-5 mm. No pleural effusion or pneumothorax. AIRWAY: Clear central tracheobronchial tree. PAGE 1 Signed Report (CONTINUED) Name: REZA MAJOR [facility] Neftaly Neff : 1980 Age/S: 40 / M[address] [facility] [address] Unit #: [id number] Loc: [place] [address] Phys: Jacinto Mullen MD Acct: [id number] Date: Status: DEP ER PHONE #: [phone] Exam Date: 06/13/2020238 FAX #: [phone] Reason: PAIN WITH TRAUMA EXAMS: CPT CODE: [id number] CT CHEST W/CONTRAST 84777 <Continued> HEART:Mild cardiomegaly associated with trace pericardial effusion and prominent pericardial fat. THORACIC AORTA: Normal caliber without aneurysm or dissection. PULMONARY ARTERIES: No evidence of central pulmonary embolus. MEDIASTINUM AND BRYNN: Scattered small mediastinal and bilateral hilar lymph nodes without lymphadenopathy or mass. SOFT TISSUES: No suspicious soft tissue lesion or abnormality. OSSEOUS STRUCTURES:Mild to moderate thoracic spondylosis and facet arthrosis [...] without inflammatory change. STOMACH: Under distended appropriately thick-walled.PERITONEUM AND MESENTERY: Free Air: No evidence of [...] 2 Signed Report (CONTINUED) Name: REZA MAJOR [facility] Neftaly bowman : 1980 Age/S: 40 / M [address] [place] [address] Unit #: [id number] Loc: [place] [address] Phys: Jacinto Mullen MD Acct: [id number] Dis Date: Status: [facility] ER PHONE #: [phone] Exam Date: 06/13/2020238 FAX #: [phone] Reason: PAIN WITH TRAUMA EXAMS: CPT CODE: [id number] CT CHEST W/CONTRAST 55683 <Continued> ABDOMINAL ORGANS: Liver: Normalsize liver with a small 8 mm calcified lesion or calcified granuloma. Gallbladder: Postoperative change of cholecystectomy. Biliary Tree: Mildly prominent to dilated in trahepatic and extrahepatic bile ducts likely physiological in [...] vesicles. SOFT TISSUES: No suspicious soft tissue lesionor abnormality. OSSEOUS STRUCTURES: No fracture, dislocation, or [...] 3 Signed Report (CONTINUED) Name: REZA MAJOR [facility] Neftaly Neff : 1980 Age/S: 40 / M [address] [place] [address] Unit #: [id number] Loc: [place] [address] Phys: Jacinto Mullen MD Acct: [id number] Dis Date: Status: [facility] ER PHONE #: [phone] Exam Date: 06/13/2020238 FAX #: [phone] Reason: PAIN WITH TRAUMA EXAMS: CPT CODE: [id number] CT CHEST W/CONTRAST 86119 <Continued> No definite acute thoracic spine fracture is appreciated. Follow-up MR could be obtained for confirmation if thoracic pain is present. Innumerable tiny groundglass nodules throughout both lungs greatest in the upperlobes and lung apices most likely an infectious or inflammatory etiology or possibly hypersen sitivity pneumonitis. Additionally, several scattered more solid- appearing pulmonary nodules are seen ranging from 3-5 mm. Clinical correlation and short interval follow-up CTchest is recommended. Mild cardiomegaly associated with trace pericardial effusionand prominent pericardial fat. Cholecystectomy with mild central biliary ductal dilatation likely physiological in nature related to reservoir effect. Subcentimeter benign-appearing calcified hepatic lesion versus a calcified granuloma. SL: TPAINTER-H at 0318 Reported and signed by: Evangelista Foster M.D. CC: Jacinto Mullen MD Technologist:Danny Jackson RT(R)(CT) CTDI: DLP: Trnscb Date/Time: 06/13/2020 (317) [email or web address] Orig Print D/T: S: 06/13/2020 (320) PAGE 4 Signed Report- CT ABD PELVIS W/CONT 2020-06-13 03:18:00 [facility] : 1980 Sex: M Name: REZA MAJOR [facility] : 1980 Age/S: 40 / M [address] [place] [address] Blvd Unit #: [id number] Loc: [place] [address] Phys: Jacinto Mullen MD Acct: [id number] Dis Date: Status: DEP ER PHONE #: [phone] Exam Date: 06/13/2020238 FAX #: [phone] Reason: PAIN WITH TRAUMA EXAMS: CPT CODE: [id number] CT ABD PELVIS W/CONT 05019 STUDY: - CT CHEST W/CONTRAST, - CT ABD PELVIS W/CONT 06/13/2020 2:00 AM Ordering Physician: Jacinto Mullen MD Patient Name: REZA MAJOR MR: [id number] : 1980; Age: 40 years y/o Male Clinical Indication: Chest and abdominal pain related to trauma. Comparison: None TECHNIQUE: Multiple contiguous postcontrast transaxial CT images were obtained from the base of the neck through the symphysis pubis. Sagittal and coronal reformatted images were prepared. CT imaging performed at this locationutilizes radiation dose optimization techniques which include one or more of the following: - Automated exposure control -Adjustment of the mA and/or kV according to patient size -Use of iterative reconstruction technique IV CONTRAST: [id number] Radiation Dose DLP: 1531.16 mGy-cm FINDINGS: CT CHEST WITH CONTRAST: LUNGS: Well inflated lungs associated with innumerable tiny groundglass nodules throughout both lungs best demonstrated in the upper lobes and lung apices. Mild bilateral basilar subsegmental atelectasis and scarring. Scattered subpleural bullae in both lung bases. Scattered indeterminate solid pulmonary nodules mainly peripherallyin both lungs greatest in the upper lobes and lung apices ranging from 2-5 mm. No pleural effusion or pneumothorax. AIRWAY: Clear central tracheobronchial tree. PAGE 1 Signed Report (CONTINUED) Name: REZA MAJOR [facility] : 1980 Age/S: 40 / M[address] [facility] Unit #: [id number] Loc: [place] [address] Phys: Jacinto Mullen MD Acct: [id number] Date: Status: [facility] ER PHONE #: [phone] Exam Date: 06/13/2020238 FAX #: [phone] Reason: PAIN WITH TRAUMA EXAMS: CPT CODE: [id number] CT ABD PELVIS W/CONT 93520 <Continued> HEART:Mild cardiomegaly associated with trace pericardial effusion and prominent pericardial fat. THORACIC AORTA: Normal caliber without aneurysm or dissection. PULMONARY ARTERIES: No evidence of central pulmonary embolus. MEDIASTINUM AND BRYNN: Scattered small mediastinal and bilateral hilar lymph nodes without lymphadenopathy or mass. SOFT TISSUES: No suspicious soft tissue lesion or abnormality. OSSEOUS STRUCTURES:Mild to moderate thoracic spondylosis and facet arthrosis [...] without inflammatory change. STOMACH: Under distended appropriately thick-walled.PERITONEUM AND MESENTERY: Free Air: No evidence of [...] 2 Signed Report (CONTINUED) Name: REZA MAJOR [facility] Neftaly Pelaez gracie : 1980 Age/S: 40 / M [address] [place] [address] Blvd Unit #: [id number] Loc: [place] [address] Phys: Jacinto Mullen MD Acct: [id number] Dis Date: Status: DEP ER PHONE #: [phone] Exam Date: 06/13/2020238 FAX #: [phone] Reason: PAIN WITH TRAUMA EXAMS: CPT CODE: [id number] CT ABD PELVIS W/CONT 16202 <Continued> ABDOMINAL ORGANS: Liver: Normalsize liver with a small 8 mm calcified lesion or calcified granuloma. Gallbladder: Postoperative change of cholecystectomy. Biliary Tree: Mildly prominent to dilated in trahepatic and extrahepatic bile ducts likely physiological in [...] vesicles. SOFT TISSUES: No suspicious soft tissue lesionor abnormality. OSSEOUS STRUCTURES: No fracture, dislocation, or [...] 3 Signed Report (CONTINUED) Name: REZA MAJOR [facility] [place] : 1980 Age/S: 40 / M [address] [place] [address] Unit #: [id number] Loc: [place] [address] Phys: Jacinto Mullen MD Acct: [id number] Dis Date: Status: DEP ER PHONE #: [phone] Exam Date: 06/13/2020238 FAX #: [phone] Reason: PAIN WITH TRAUMA EXAMS: CPT CODE: [id number] CT ABD PELVIS W/CONT 00682 <Continued> No definite acute thoracic spine fracture is appreciated. Follow-up MR could be obtained for confirmation if thoracic pain is present. Innumerable tiny groundglass nodules throughout both lungs greatest in the upperlobes and lung apices most likely an infectious or inflammatory etiology or possibly hypersen sitivity pneumonitis. Additionally, several scattered more solid- appearing pulmonary nodules are seen ranging from 3-5 mm. Clinical correlation and short interval follow-up CTchest is recommended. Mild cardiomegaly associated with trace pericardial effusionand prominent pericardial fat. Cholecystectomy with mild central biliary ductal dilatation likely physiological in nature related to reservoir effect. Subcentimeter benign-appearing calcified hepatic lesion versus a calcified granuloma. SL: TPAINTER-H at 0318 Reported and signed by: Evangelista Foster M.D. CC: Jacinto Mullen MD Technologist:RT Leticia(R)(CT) CTDI: DLP: Trnscb Date/Time: 06/13/2020 (317) [email or web address] Orig Print D/T: S: 06/13/2020 (320) PAGE 4 Signed Report- CT C-SPINE W/O CONT 2020-06-13 03:02:00 [facility] NEFTALY RELIANCEName: REZA MAJOR : 1980 Sex: M Name: REZA MAJOR [facility] [place] : 1980 Age/S: 40 / M [address] Unit #: [id number] Loc: [place] [address] Phys: Jacinto Mullen MD Acct: [id number] Dis Date: Status: REG ER PHONE #: [phone] Exam Date: 06/13/2020238 FAX #: [phone] Reason: NECK PAIN EXAMS: CPT CODE: [id number] CT C-SPINE W/O CONT 83438 STUDY: - CT C- SPINE W/O CONT 06/13/2020 2:00 AM Ordering Physician: Jacinto Mullen MD Patient Name: REZA MAJOR MR: [id number] : 1980; Age: 40 years y/o Male Clinical Indication: Cervical pain related to trauma. Comparison: None Technique: Multiple contiguous noncontrast CT images were obtained through the cervicalspine. Coronal and sagittal reconstructions were prepared. CT imaging performed at this location utilizes radiation dose optimization techniques which include one or more of the following: -Automated exposure control - Adjustment of the mA and/or kV according to [...] 1 Signed Report (CONTINUED) Name: REZA MAJOR [facility] Neftaly Neff : 1980 Age/S: 40 / M [address] [place] [address] Blvd Unit #: [id number] Loc: [place] [address] Phys: Jacinto Mullen MD Acct: [id number] Dis Date: Status: REG ER PHONE #: [phone] Exam Date: 06/13/20209 FAX #: [phone] Reason: NECKPAIN EXAMS: CPT CODE: [id number] CT C-SPINE W/O CONT 65725 <Continued> No acute fracture or dislocation in the cervical spine. Indeterminate right apical pulmonary nodule measuring 5 mm. Short interval follow-up CT chest is recommended. SL: KRISTIEINTER-H at 0302 Reported and signed by: Evangelista Foster M.D. CC: Jacinto Mullen MD Technologist:Danny Jackson RT(R)(CT) CTDI: DLP: Trnscb Date/Time: 06/13/2020 (301) [email or web address] Orig Print D/T: S: 06/13/2020 (304) PAGE 2 Signed Report - CT C-SPINE W/O [id number] 03:02:00 [facility] : 1980 Sex: M Name: REZA MAJOR [facility] Neftaly Neff : 1980 Age/S: 40 / M [address] [place] [address] Blvd Unit #: [id number] Loc: [place] [address] Phys: Jacinto Mullen MD Acct: [id number] Dis Date: Status: [facility] ER PHONE #: [phone] Exam Date: 06/13/2020238 FAX #: [phone] Reason: NECK PAIN EXAMS: CPT CODE: [id number] CT C-SPINE W/O CONT 93977 STUDY: - CT C-SPINE W/O CONT 06/13/2020 2:00 AM Ordering Physician: Jacinto Mullen MD Patient Name: REZA MAJOR MR: [id number] : 1980; Age: 40 years y/o Male Clinical Indication: Cervical pain related to trauma. Comparison: None Technique: Multiple contiguous noncontrast CT images were obtained through the cervical spine. Coronal and sagittal reconstructions were prepared. CT imaging performedat this location utilizes radiation dose optimization techniques which include one or more of the following: -Automated exposure control -Adjustment of the mA and/or kV according to patient size - Use of iterative reconstruction technique CT Radiation Dose [...] PAGE 1 Signed Report (CONTINUED) Name: REZA MAJRO [facility] : 1980 Age/S: 40 / M [address] [place] [address] Unit #: [id number] Loc: [place] [address] Phys: Jacinto Mullen MD Acct: [id number] Dis Date: Status: [facility] ER PHONE #: [phone] Exam Date: 06/13/2020238 FAX #: [phone] Reason: NECK PAIN EXAMS:CPT CODE: [id number] CT C-SPINE W/O CONT 75359 <Continued> No acute fracture or dislocation in the cervical spine. Indeterminate right apical pulmonary nodule measuring 5 mm. Short interval follow-up CT chest is recommended. SL: TPAINTER-H at 0302 Reported and signed by: Evangelista Foster M.D. CC: Jacinto Mullen MD Technologist:Danny Jackson, RT(R)(CT) CTDI: DLP: Trnscb Date/Time: 06/13/2020 (301) [email or web address] Orig Print D/T: S: 06/13/2020 (3608) PAGE 2 Signed Report - CT HEAD/BRAIN W/O [id number] 02:56:00 [facility] : 1980 Sex: M Name: REZA MAJOR [facility] : 1980 Age/S: 40 / M [address] [place] [address] Blvd Unit #: [id number] Loc: [place] [address] Phys: Jacinto Mullen MD Acct: [id number] Dis Date: Status: REG ER PHONE #: [phone] Exam Date: 06/13/2020238 FAX #: [phone] Reason: HEADACHE EXAMS: CPT CODE: [id number] CT HEAD/BRAIN W/O CONT 08104 STUDY: - CT HEAD/BRAIN W/O CONT 06/13/2020 2:00 AM Ordering Physician: Jacinto Mullen MD Patient Name: REZA MAJOR MR: [id number] : 1980; Age: 40 years y/o Male [...] Small right maxillary sinus mucus retention cyst. Thevisualized portions of the remaining paranasal sinuses are clear. MASTOIDS: Clear. ORBITS: The visualized portions of the orbits are normal. SOFT TISSUES: No significant abnormality. SKULL: No acute fracture or suspicious osseous lesion. PAGE 1 Signed Report (CONTINUED) Name: REZA MAJOR [facility] [place] : 1980 Age/S: 40 / M [address] [place] [address] Unit #: [id number] Loc: [place] [address] Phys: Jacinto Mullen MD Acct: [id number] Dis Date: Status: REG ER PHONE #: [phone] Exam Date: 06/13/2020238 FAX #: [phone] Reason: HEADACHE EXAMS: CPT CODE: [id number] CT HEAD/BRAIN W/O CONT 19962 <Continued> IMPRESSION: Normal brain without acute intracranial abnormality. Mild chronic sinusitis. at 0256 Reported and signed by: Evangelista Foster M.D. CC: Jacinto Mullen MD Technologist:Danny Jackson RT(R)(CT) CTDI: DLP: Trnscb Date/Time: 06/13/2020 (255) [email or web address] Orig Print D/T: S: 06/13/2020 (0300) PAGE 2 SignedReport- CT HEAD/BRAIN W/O [id number] 02:56:00 [facility] : 1980 Sex: M Name: REZA MAJOR [facility] [place] : 1980 Age/S: 40 / M [address] [place] [address] Unit #: [id number] Loc: [place] [address] Phys: Jacinto Mullen MD Acct: [id number] Dis Date: Status: DEP ER PHONE #: [phone] Exam Date: 06/13/2020238 FAX #: [phone] Reason: HEADACHE EXAMS: CPT CODE: [id number] CT HEAD/BRAIN W/O CONT 22356 STUDY: - CT HEAD/BRAIN W/O CONT 06/13/2020 2:00 AM Ordering Physician: Jacinto Mullen MD Patient Name: REZA MAJOR MR: [id number] : 1980; Age: 40 years y/o Male [...] Small right maxillary sinus mucus retention cyst. Thevisualized portions of the remaining paranasal sinuses are clear. MASTOIDS: Clear. ORBITS: The visualized portions of the orbits are normal. SOFT TISSUES: No significant abnormality. SKULL: No acute fracture or suspicious osseous lesion. PAGE 1 Signed Report (CONTINUED) Name: REZA MAJOR [facility] [place] : 1980 Age/S: 40 / M [address] [place] [address] Unit #: [id number] Loc: [place] [address] Phys: Jacinto Mullen MD Acct: [id number] Dis Date: Status: DEP ER PHONE #: [phone] Exam Date: 06/13/2020238 FAX #: [phone] Reason: HEADACHE EXAMS: CPT CODE: [id number] CT HEAD/BRAIN W/O CONT 75517 <Continued> IMPRESSION: Normal brain without acute intracranial abnormality. Mild chronic sinusitis. at 0256 Reported and signed by: Evangelista Foster M.D. CC: Jacinto Mullen MD Technologist:RT Leticia(R)(CT) CTDI: DLP: Trnscb Date/Time: 06/13/2020 (255) [email or web address] Orig Print D/T: S: 06/13/2020 (030) PAGE 2 SignedReportBASIC METABOLIC [id number] 02:42:00 Test Item Value Reference Range Interpretation Comments SODIUM (test code = NA) 139 mEq/L 134-147 N POTASSIUM (test code = 3.8 mEq/L 3.4-5.0 N K) CHLORIDE (test code = 105 mEq/L 100-108 N CL) CARBON DIOXIDE (test 24 mEq/l 21-33 N code = CO2) ANION GAP (test code = 14 0-20 N GAP) GLUCOSE (test code = 335 mg/dL 70-110 H GLU) BLOOD UREA NITROGEN 11 mg/dL 7-18 N (test code = BUN) GLOMERULAR FILTRATION 124.3 95-105 H Units of measure = RATE (test code = GFR) ml/mi n/1.73 m2 CREATININE (test code = 0.7 mg/dL 0.6-1.3 N CREAT) CALCIUM (test code = 9.5 mg/dL 8.0-10.5 N CA) [id number] 02:42:00 Test Item Value Reference Range Interpretation [...] al orEmployment ev aluation purposes. CBC W/AUTO [id number] 02:32:00 Test Item Value Reference Range Interpretation [...] (test code NO = MDIFF) CBC W/AUTO [id number] 02:31:00 Test Item Value Reference Range Interpretation [...] code = MDIFF) - XR SHOULDER 2+V [id number] 10:00:00 Name: REZA MAJOR [facility] : 1980 Age/S: 39 / M [address] Unit #: [id number] Loc: [place] [address] Phys: Arias Perez MD Acct: [id number] Dis Date: Status: REG ER PHONE #: [phone] Exam Date: 12/29/2019 0957 FAX #: Reason: pain EXAMS: CPT: [id number] XR SHOULDER 2+[place] [address] Fluoro Time: DAP (Gy m2): Air Kerma (mGy): Site ID: [id number] INDICATION: Left shoulder pain FINDINGS: Osseous alignment and bone mineral density are normal. No fracture or destructive bone lesion. Glenohumeral articulation appears normal. No AC joint abnormality. IMPRESSION: Normal left shoulder x-rays at 1000 Reported and signed by: Jim Valentino M.D. CC: Arias Perez MD PAGE 1 Signed Report Name: PEDRITOREZA [facility] : 1980 Age/S: 39 / M [address] [place] [address] Unit #: [id number] Loc: [place] [id number] Phys: Arias Perez MD Acct: [id number] Dis Date: Status: REG ER PHONE #: [phone] Exam Date: 12/29/2019 0957 FAX #: Reason: pain EXAMS: CPT: [id number] XR SHOULDER 2+[place] [address] Fluoro Time: DAP (Gy m2): Air Kerma (mGy): <Continued> Technologist: RT Zamzam(R) Trnscb Date/Time: 12/29/2019 (1000) [email or web address] Orig Print D/T: S: 12/29/2019 (1003) PAGE 2Signed Report- XR SHOULDER 2+V LT 2019-12-29 10:00:00 [facility] 1980 Sex: M Name: REZA MAJOR [facility] : 1980Age/S: 39 / M [facility] [address] Unit #: [id number] Loc: [place] [address] Phys: Arias Perez MD Acct: [id number] Dis Date: Status: [facility] ER PHONE#: [phone] Exam Date: 12/29/2019 0957 FAX #: Reason: pain EXAMS: CPT: [id number] XR SHOULDER 2+[place] [address] Fluoro Time: DAP (Gy m2): Air Kerma (mGy): Site ID: [id number] INDICATION: Left shoulder pain FINDINGS: Osseous alignment and bone mineral densityare normal. No fracture or destructive bone lesion. Glenohumeral articulation appears normal. No AC joint abnormality. IMPRESSION: Normal left shoulder x-rays at 1000 Reported and signed by: Jim Valentino M.D. CC: Arias Carvajal PAGE 1 Signed Report Name: REZA MAJOR [facility] : 1980 Age/S: 39 / M [address] Unit #: [id number] Loc: [place] [address] Phys: Arias Perez MD Acct: [id number] Dis Date: Status: DEP ER PHONE #: [phone] Exam Date: 12/29/2019 0957 FAX #: Reason: pain EXAMS: CPT: [id number] XR SHOULDER 2+[place] [address] Fluoro Time: DAP (Gy m2): Air Kerma (mGy): <Continued> Technologist: Gina Rodriguez RT(R) Trnscb Date/Time: 12/29/2019 (1000) [email or web address] Orig Print D/T: S: 12/29/2019 (1003) PAGE 2 Signed Report- XR SHOULDER 2 + V [id number] 21:43:00 FAX: Viola Naidu [phone] [place]: St: PRE Name: REZA MAJOR [facility] : 1980 Age/S: 39/M [address] [place] [address] Bl Unit#: [id number] Loc: [place] [address] Phys: Viola Good Acct: [id number] Dis Date: Status: PRE ER PHONE #: [phone] Exam Date: 10/13/20192118 FAX #: [phone] Reason: L shoulder pain EXAMS: CPT CODE: [id number] XR SHOULDER 2 + [place] LT [address] Left shoulder 3 views: HISTORY: Pain from lifting weights. FINDINGS: Normal alignment. No fracture, dislocation or soft tissue abnormality IMPRESSION: Negative SL: EG-H at 3 Reported and signed by: Star Islas M.D. CC: Viola Good PATechnologist: DENAE Mascorro RT(R); Nancy Hayes RT(R) [facility] Date/Time/By: 10/13/2019 (2142) : By: AndreaETG Orig Print D/T: S: 10/13/2019 (2145) PAGE1 Signed ReportLipase [id number] 05:27:00 Test Item Value Reference Range Interpretation Comments LIPASE (test code = 7615929287) 32 U/L 0-220 Lab Interpretation (test code = Normal 68333-8) [facility] [id number] 05:23:00 Test Item Value Reference Range Interpretation Comments TROPONIN I (test 0.001 ng/mL See_Comment [Automated code = 5879838948) message] The system which generated this result transmitted reference range : <=0.034. The reference range was not used to interpret this result as normal/abnormal . MARLON (test code = Equal or Less than MARLON) 0.034 ng/ml---Normal ?Note: Cardiac troponin begins to rise 3-4 hours after the onset of ischemia. Repeat in 4-6 hours if the sample was drawn within 3-4 hours of the onset of the symptom and found normal. Between 0.035 and 0.120 ng/mL--- Borderline. Questionable myocardial injury or necrosis ? ?Note: Serial measurement may be necessary to confirm or exclude the diagnosis of myocardial injury or necrosis; Clinical correlation (symptoms, EKGs, imaging studies, and others) required; Repeat in 4-6 hours if clinically indicated. ? Equal or Higher than 0.121 ng/mL---Abnormal. Myocardial Injury or Necrosis Likely ? Biotin has been reported to cause a negative bias, interpret results relative to patient's use of biotin. ? Lab Interpretation Normal (test code = 29486-1) [facility]MINAL [id number] 05:23:00 Test Item Value Reference Range Interpretation Comments NT-proBNP (test code 138 pg/mL See_Comment H [Autom ated = 4016591958) message] The system which generated this result transmitted reference range : <=125. The reference range was not used to interpret this result as normal/abnormal . MARLON (test code = MARLON) Biotin has been reported to cause a negative bias, interpret results relative to patient's use of biotin. Lab Interpretation Abnormal (test code = 77574-3) [facility] 1 VW [id number] 05:17:23 Slight interstitial prominence of the lower lungs, mild atypicalpneumonitis not excluded. No dense consolidation noted. RL: 1008AFC: 78697 Examination: Chest one view (portable frontal) Ordering Physician: ?LIZ JOHNSON History: coughand fever Comparison: ?None available Findings: Single portable view of the chest is submitted for review.Minimal interstitial prominence over the lower lungs. No denseconsolidation, pleural effusion or pneumothorax. Cardiac mediastinalsilhouette within normal limits. Overlying monitoring wires. [facility], Radiant Results Inft User - 07/22/2019 12:18 AM CDTExamination: Chest one view (portable frontal) Ordering Physician: LIZ Wuory: cough and fever Comparison: None availableFindings: Singleportable view of the chest is submitted for review.Minimal interstitial prominence over the lower lungs. No denseconsolidation, pleural effusion or pneumothorax. Cardiac mediastinalsilhouette within normal limits. Overlying monitoring wires.IMPRESSIONSlight interstitial prominence of the lower lungs, mild atypicalpneumonitis not excluded. No dense consolidation noted.RL: 1008AFC: 53697 Electronicallysigned by Lawrence Nix MD at 07/22/2019 12:17 AMUnMedical Arts HospitalAD,CLC OR LCC ONLY - INFLUENZA A & B DIRECT ANTIGEN 2019-07-22 05:12:00 Test Item Value Reference Range Interpretation Comments Influenza A (test code = 03087-6) Negative Negative Influenza B (test code = 06063-7) Negative Negative Lab Interpretation (test code = Normal 90624-2) [facility] Metabolic Panel (NA, K, CL, CO2, GLUCOSE, BUN, CREATININE, CA)2019-07-22 05:10:00 Test Item Value Reference Range Interpretation Comments NA (test code = 137 mmol/L 135-145 4159086545) K (test code = 3.7 mmol/L 3.5-5 6573127722) CL (test code = 101 mmol/L 98-108 3422655209) CO2 TOTAL (test code = 23 mmol/L 23-31 9348794987) AGAP (test code = 2-16 6216859214) BUN (test code = 7 mg/dL 7-23 8521976568) GLUCOSE (test code = 165 mg/dL 70-110 H 5233291195) CREATININE (test code = 0.49 mg/dL 0.6-1.25 L 7811374295) CALCIUM (test code = 8.5 mg/dL 8.6-10.6 L 9439369725) eGFR Calculation mL/min/1.73m2 (Non-) (test code = 7557903087) eGFR Calculation mL/min/1.73m2 () (test code = 8319698914) MARLON (test code = MARLON) Association of Glomerular Filtration Rate (GFR) and Staging of Kidney Disease* + --+ --+ ------+| GFR (mL/min/1.73 m2) ?| With Kidney Damage ?| ?Without Kidney Damage+ --------+ --------+ +| ?>90 ?| ?Stage one ?| ? Normal ?+ ---+ ---+ -------+| ?60-89 ?| ?Stage two ?| ? Decreased GFR ? + --+ --+ ------+| ?30-59 ?| ?Stage three ?| ? Stage three ? + --+ --+ ------+| ?15-29 ?| ?Stage four ? | ? Stage four ?+ ---+ ---+ -------+| ?<15 (or dialysis) ? ?| ?Stage five ? | ? Stage five ?+ ---+ ---+ -------+ *Each stage assumes the associated GFR level has been in effect for at least three months. ?Stages 1 to 5, with or without kidney disease, indicate chronic kidney disease. Notes: Determination of stages one and two (with eGFR >59mL/min/1.73 m2) requires estimation of kidney damage for at least three months as defined by structural or functional abnormalities of the kidney, manifested by either:Pathological abnormalities or Markers of kidney damage (including abnormalities in the composition of the blood or urine or abnormalities in imaging tests). Lab Interpretation Abnormal (test code = 37690-7) [facility] (ALB, T.PRO, BILI T, BU/BC, ALT, AST, ALK PHOS)2019-07-22 05:10:00 Test Item Value Reference Range Interpretation Comments TOTAL BILI (test code = 4177885936) 0.1 mg/dL 0.1-1.1 BILI UNCON (test code = 5334325056) 0.1 mg/dL 0.1-1.1 BILI CONJ (test code = 3391559949) 0.0 mg/dL 0-0.3 T PROTEIN (test code = 5690916501) 6.6 g/dL 6.3-8.2 ALBUMIN (test code = 9124005546) 3.5 g/dL 3.5-5 ALK PHOS (test code = 3421065556) 104 U/L 34-122 ALTv (test code = 1742-6) 10 U/L 5-50 AST(SGOT) (test code = 3638642475) 13 U/L 13-40 Lab Interpretation (test code = Normal 44438-9) [facility] WITH [id number] 05:00:00 Test Item Value Reference Range Interpretation Comments WBC (test code = See_Comment [Automated 6690-2) message] The sy stem which generated this result transmitted reference range : 4.20 - 10.70 10*3/?L. The reference range was not used to interpret this result as normal/abnormal . RBC (test code = See_Comment L [Automated 789-8) message] The sy stem which generated this result transmitted reference range : 4.26 - 5.52 10*6/?L. The reference range was not used to interpret this result as normal/abnormal . HGB (test code = 12.3 g/dL 12.2-16.4 718-7) HCT (test code = 37.0 % 38.4-49.3 L 4544-3) MCV (test code = 92.5 fL 81.7-95.6 787-2) MCH (test code = 30.8 pg 26.1-32.7 785-6) MCHC (test code = 33.2 g/dL 31.2-35 786-4) RDW-SD (test code = 49.8 fL 38.5-51.6 45891-7) RDW-CV (test code = 14.6 % 12.1-15.4 788-0) PLT (test code = See_Comment H [Automated 777-3) message] The sy stem which generated this result transmitted reference range : 150 - 328 10*3/ ?L. The reference r eileen was not used to interpret this result as normal/abnormal . MPV (test code = 8.8 fL 9.8-13 L 54983-2) NRBC/100 WBC (test See_Comment [Automat ed code = 0362771846) message] The system which generated this result transmitted reference range : 0.0 - 10.0 /100 WBCs. The refer ence range was not u sed to interpret th is result as normal/abnormal . NRBC x10^3 (test code <0.01 See_Comment [Auto mated = 9814133189) message] The s ystem which generated this result transmitted reference range : 10*3/?L. The reference range was not used to interpret this result as normal/abnormal . GRAN MAT (NEUT) % 67.1 % (test code = 770-8) IMM GRAN % (test code 0.50 % = 0743605459) LYMPH % (test code = 22.5 % 736-9) MONO % (test code = 5.6 % 5905-5) EOS % (test code = 3.8 % 713-8) BASO % (test code = 0.5 % 706-2) GRAN MAT x10^3(ANC) 6.79 10*3/uL 1.99-6.95 (test code = 8733998590) IMM GRAN x10^3 (test 0.05 10*3/uL 0-0.06 code = 4310516934) LYMPH x10^3 (test code 2.28 10*3/uL 1.09-3.23 = 731-0) MONO x10^3 (test code 0.57 10*3/uL 0.36-1.02 = 742-7) EOS x10^3 (test code = 0.39 10*3/uL 0.06-0.53 711-2) BASO x10^3 (test code 0.05 10*3/uL 0.01-0.09 = 704-7) Lab Interpretation Abnormal (test code = 97596-2) [facility]EL[facility] W/O [id number] 13:55:00 Name: REZA MAJOR [facility] : 1980 Age/S: 39 / M [address] [place] [address] Unit #: [id number] Loc: [place] [id number] Phys: Divya Barahona [employer] Acct: [id number] Dis Date: Status: PRE ER PHONE #: [phone] Exam Date: 07/08/2019 1322 FAX #: [phone] Reason: rlq, ruq, r flank pain, diarrhea EXAMS: CPTCODE: [id number] CT ABD PELVIS W/O CONT 88927 Clinical Ind ication: Right lower quadrant pain, [...] No acute abdominal or pelvic process. SL: [id number] at 1355 Reported and signed by: Matheus Berumen M.D. PAGE 1 Signed Report (CONTINUED) Name: REZA MAJOR [facility] : 1980 Age/S: 39 / M [address] [place], [place] [address] Unit #: [id number] Loc: [place] [address] Ph s: Divya Barahona NP Acct: [id number] Dis Date: Status: PRE ER PHONE #: [phone] Exam Date: 07/08/2019 1322 FAX #: [phone] Reason: rlq, ruq, r flank pain, diarrhea EXAMS: CPT CODE: [id number] CT ABD PELVIS W/O CONT 02975 <Continued> CC: Divya Barahona NP Technologist:Eladia Krnavek, RT(R)(CT) CTDI: DLP: Trnscb Date/Time: 07/08/2019 (6169) t.SDR.KM28 Orig Print D/T: S: 07/08/2019 (7406) PAGE 2 Signed Report COMPREHENSIVE METABOLIC [id number] 13:39:00 Test Item Value Reference Range Interpretation [...] 20-125 H TOTAL (test code = ALKP) [id number] 13:39:00 Test Item Value Reference Range Interpretation Comments LIPASE (test code = LIP) 56 IUnit/L 73-393 L URINALYSIS [id number] 13:36:00 Test Item Value Reference Range Interpretation [...] MUCU) TRACE /LPF NONE SEEN COMPREHENSIVE METABOLIC [id number] 13:31:00 Test Item Value Reference Range Interpretation [...] TOTAL (test IUnit/L 20-125 code = ALKP) [id number] 13:31:00 Test Item Value Reference Range Interpretation Comments LIPASE (test code = LIP) 56 IUnit/L 73-393 L CBC W/AUTO [id number] 13:27:00 Test Item Value Reference Range Interpretation [...] NO = MDIFF) - XR CHEST 1 [id number] 09:10:00 FAX: Lew Mark [phone] [place]: St: REG Name: REZA MAJOR [facility] : 1980 Age/S: 38/M [address] [place] [address] Unit#: [id number] Loc: [place] [address] Phys: Lew Mark Acct: [id number] Dis Date: Status: REG ER PHONE #: [phone] Exam Date: 01/07/2019 09 FAX #: [phone] Reason: cough and fever EXAMS: CPT CODE: [id number] XR CHEST 1 V 38026 EXAM: Single view AP chest. EXAM DATE: [...] Frost M.D. 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 [facility] LACTIC [id number] 02:32:00 Test Item Value Reference Range Interpretation Comments LACTIC ACID (test code = LACT) 0.6 mmol/L 0.4-1.9 N - CT ABD PELVIS W/[id number] 02:06:00 Name: REZA MAJOR [facility] : 1980 Age/S: 38 / M [address] [place] [address] Blvd Unit #: [id number] Loc: [place] [id number] Phys: Hilario Renner MD Acct: [id number] Dis Date: Status: REG ER PHONE #: [phone] Exam Date: 09/21/2018 0135 FAX #: [phone] Reason: abd pain EXAMS: CPTCODE: [id number] CT ABD PELVIS W/CONT 47083 PROCEDURE: CT abdomen and pelvis with contrast [...] 1 Signed Report (CONTINUED) Name: REZA MAJOR [facility] : 1980 Age/S: 38 / M [address] [place] [address] Blvd Unit #: [id number] Loc: [place] [address] Phys: Hilario Renner MD Acct: [id number] Dis Date: Status: REG ER PHONE #: [phone] Exam Date: 09/21/2018 0135 FAX #: [phone] Reason: abd pain EXAMS: CPT CODE: [id number] CT ABD PELVIS W/CONT 56401 <Continued> LOWER CHEST: The lung bases appear [...] S: 09/21/2018 (208) PAGE 2 Signed ReportURINALYSIS [id number] 00:47:00 Test Item Value Reference Range Interpretation [...] SEEN code = SQU) COMMENTS: Clean CatchURINALYSIS [id number] 00:46:00 Test Item Value Reference Range Interpretation [...] RBCU) RBC/HPF 0-3 COMMENTS: Clean CatchCOMPREHENSIVE METABOLIC [id number] 00:43:00 Test Item Value Reference Range Interpretation [...] 20-125 H TOTAL (test code = ALKP) [id number] 00:43:00 Test Item Value Reference Range Interpretation Comments LIPASE (test code = LIP) 109 IUnit/L 73-393 N COMPREHENSIVE METABOLIC [id number] 00:41:00 Test Item Value Reference Range Interpretation [...] IUnit/L 20-125 TOTAL (test code = ALKP) [id number] 00:41:00 Test Item Value Reference Range Interpretation Comments LIPASE (test code = LIP) 109 IUnit/L 73-393 N CBC W/AUTO [id number] 00:31:00 Test Item Value Reference Range Interpretation [...] DIFF REQUIRED (test NO code = MDIFF) [id number] 08:36:00 Test Item Value Reference Range Interpretation Comments GLUBED (test code = 125 MG/DL 70-110 H Performe d by certified GLUBED) 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 [facility] COMPREHENSIVE METABOLIC [id number] 07:59:00 Test Item Value Reference Range Interpretation [...] TOTAL (test code = ALKP) CBC W/AUTO [id number] 07:52:00 Test Item Value Reference Range Interpretation [...] = MDIFF) - CT ABD PELVIS W/O [id number] 00:33:00 Name: REZA MAJOR [facility] : 1980 Age/S: 38 / M [address] [place] [address] Unit #: [id number] Loc: [place] [id number] Phys: GaloManinder Acct: [id number] Dis Date: Status: ADM IN PHONE #: [phone] Exam Date: 09/15/2018 1090 FAX #: [phone] Reason: ground l evel fall, reports abd pain, recent charla EXAMS: CPTCODE: [id number] CT ABD PELVIS W/O CONT 97419 EXAM: CT, CT ABDOMEN PELVIS: 09/15/2018, 2357 [...] 1 Signed Report (CONTINUED) Name: REZA MAJOR [facility] : 1980 Age/S: 38 / M [address] [place] [address] Unit #: [id number] Loc: [place] [address] Phys: Maninder Rosenthal Acct: [id number] Dis Date: Status: ADM IN PHONE #: [phone] Exam Date: 09/15/2018 2355 FAX #: [phone] Reason: ground level fall, reports abd pain, recent charla EXAMS: CPT CODE: [id number] CT ABD PELVIS W/O CONT 29257 <Continued> assessment. PERITONEUM AND RETROPERITONEUM: No ascites [...] filled with air and moderate fecal load.SL: JSNUZHAT-Tay at 0033 Reported and signed by: Cristopher Fairchild M.D. CC: Tashia Juarez MD; Maninder Rosenthal DO Technologist:Addi Soliman RT(R)(CT) CTDI: DLP: Trnscb Date/Time: 09/16/2018 (003) t.MOISESR.JS38 Orig Print D/T: S: 09/16/2018 (003) PAGE 2 Signed Report [id number] 21:19:00 Test Item Value Reference Range Interpretation Comments GLUBED (test code = 123 MG/DL 70-110 H Performe d by certified GLUBED) 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 [facility] [id number] 17:49:00 Test Item Value Reference Range Interpretation Comments GLUBED (test code = 148 MG/DL 70-110 H Performe d by certified GLUBED) 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 [facility] - XR ABDOMEN 1V (KUB)2018-09-15 17:05:00 FAX: Tashia Juarez [phone] [place]: St: ADM Name: REZA MAJOR [facility] : 1980 Age/S: 38/M [address] [place] [address] Blvd Unit#: [id number] Loc: [place] [address] Phys: Tashia Juarez MD Acct: [id number] Dis Date: Status: ADM IN PHONE #: [phone] Exam Date: 09/15/2018 1622 FAX #: [phone] Reason: ileus EXAMS: CPT CODE: [id number] XR ABDOMEN 1V (KUB) 54225 Procedure: Abdominal Radiograph. Clinical Indication: Ileus, status [...] colon. 2. Previous cholecystectomy. SL: K56-H at 0647 Reported and signed by: Arturo Garvey M.D. CC: Tashia Juarez MD Technologist: Zuly Beth, RT(R); Jazzy Castaneda RT(R) Trnscrd Date/Time/By: 09/15/2018 (8117) : By: AndreaTDO Orig Print D/T: S: 09/15/2018 (0741) PAGE 1 Signed [id number] 12:40:00 Test Item Value Reference Range Interpretation Comments GLUBED (test code = 112 MG/DL 70-110 H Performe d by certified GLUBED) 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 [facility] HGBA1C%2018-09-15 11:26:00 Test Item Value Reference Range Interpretation Comments HGBA1C% (test code = HGBA1C%) 7.4 %A1C 4.8-6.0 H BASIC METABOLIC [id number] 08:44:00 Test Item Value Reference Range Interpretation [...] code = 8.6 mg/dL 8.0-10.5 N CA) [id number] 08:09:00 Test Item Value Reference Range Interpretation Comments GLUBED (test code = 134 MG/DL 70-110 H Performe d by certified GLUBED) 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 [facility] CBC W/AUTO [id number] 06:28:00 Test Item Value Reference Range Interpretation [...] DIFF REQUIRED (test NO code = MDIFF) [id number] 23:03:00 Test Item Value Reference Range Interpretation Comments GLUBED (test code = 122 MG/DL 70-110 H Performe d by certified GLUBED) 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 [facility] - CT ABD PELVIS [id number] 16:58:00 [facility] 1980 Age/S: 38 / M [address] [place] [address] Bl Unit #: [id number] Loc: [facility] [id number] Phys: Herman Dixon DO Acct: [id number] Dis Date: Status: REG ER PHONE #: [phone] Exam Date: 09/14/2018 1626 FAX #: [phone] Reason: abd pain ;s/p cholecystectomy this week EXAMS: CPTCODE: [id number] CT ABD PELVIS W/CONT 44350 PROCEDURE: CT ABDOMEN AND PELVIS WITH CONTRAST INDICATION: Abdominal pain. Recent cholecystectomy COMPARISON: 02/14/18 CT abdomen. TECHNIQUE: Helical imaging was performed diaphragm through the symphysis with multiplanar reconstructions. IV CONTRAST: 100 mL Isovue-300. GI CONTRAST: 10 mL Gastrografin diluted in water. CT imaging performed at [facility] utilizes radiation dose optimization techniques which include [...] 1 Signed Report (CONTINUED) Name: REZA MAJOR [facility] : 1980 Age/S: 38 / M [address] [place] [address] Unit #: [id number] Loc: [place] [address] Phys: Herman Younger DO Acct: [id number] Dis Date: Status: REG ER PHONE #: [phone] Exam Date: 09/14/2018 1627 FAX #: [phone] Reason: abd pain ;s/p cholecystectomy this week EXAMS: CPT CODE: [id number] CT ABD PELVIS W/CONT 91939 <Continued> PELVIS: No pelvic mass. The urinary [...] Salter RT(R) CTDI: DLP: Trnscb Date/Time: 09/14/2018 (1658) Margarita Orig Print D/T: S: 09/14/2018 (4453) PAGE 2 Signed ReportD-DIMER 2018-09-14 15:43:00 Test [...] TESTS AND APPROPRIATECLIN ICAL EUALUATIONS. COMPREHENSIVE METABOLIC [id number] 15:42:00 Test Item Value Reference Range Interpretation [...] 20-125 H TOTAL (test code = ALKP) [id number] 15:42:00 Test Item Value Reference Range Interpretation Comments LIPASE (test code = LIP) 78 IUnit/L 73-393 N COMPREHENSIVE METABOLIC [id number] 15:34:00 Test Item Value Reference Range Interpretation [...] IUnit/L 20-125 TOTAL (test code = ALKP) [id number] 15:34:00 Test Item Value Reference Range Interpretation Comments LIPASE (test code = LIP) 78 IUnit/L 73-393 N CBC W/AUTO [id number] 15:22:00 Test Item Value Reference Range Interpretation [...] MANUAL DIFF REQUIRED (test NO code = DEBRA) - XR CHEST 2 [id number] 05:34:00 Name: REZA MAJOR [place] : 1980 Age/S: 38 / M [address] Unit #: [id number] Loc: [place] [address] Phys: Julian Rosenbaum MD Acct: [id number] Dis Date: Status: REG ER PHONE #: [phone] Exam Date: 05/26/2018514 FAX #: Reason: rib pain EXAMS: CPT: [id number] XR CHEST 2 V 06060 Fluoro Time: DAP (Gy m2): Air Kerma [...] PAGE 1 Signed Report Name: REZA MAJOR [place] : 1980 Age/S: 38 / M [address] Unit #: [id number] Loc: [place] [address] Phys: Julian Rosenbaum MD Acct: [id number] Dis Date: Status: REG ER PHONE #: [phone] Exam Date: 05/26/201815 FAX #: Reason: rib pain EXAMS: CPT: [id number] XR CHEST 2 V 13304 Fluoro Time: DAP (Gy m2): Air Kerma (mGy): <Continued> Technologist: Raghu Rick RT(R)(CT) Trnscb Date/Time: 05/26/2018 (0534) [email or web address] Orig Print D/T: S: 05/26/2018 (0537) PAGE 2 Signed Report- XR CHEST 2 [id number] 05:34:00 [facility] 1980 Sex: M Name: REZA MAJOR [facility] : 1980 Age/S: 38 / M [id number] Unit #: [id number] Loc: [place] [address] Phys: Julian Rosenbaum MD Acct: [id number] Dis Date: Status: UNK PHONE #: [phone] Exam Date: 05/26/2018514 FAX #: Reason:rib pain EXAMS: CPT: [id number] XR CHEST 2 V 62203 Fluoro Time: DAP (Gy m2): Air Kerma [...] PAGE 1 Signed Report Name: REZA MAJOR [facility] : 1980 Age/S: 38 / M [address] Unit #: [id number] Loc: [place] [address] Phys: Julian Rosenbuam MD Acct: [id number] Dis Date: Status: UNK PHONE #: [phone] Exam Date: 05/26/201815 FAX #: Reason: rib pain EXAMS: CPT: [id number] XR CHEST 2 V 66336 Fluoro Time: DAP (Gy m2): Air Kerma (mGy): <Continued> Technologist: Raghu Rick, RT(R)(CT) Trnscb Date/Time: 05/26/2018 (0534) [email or web address] Orig Print D/T: S: 05/26/2018 (0589) PAGE 2 Signed ReportTROPONIN [id number] 13:09:00 Test Item Value Reference Range Interpretation Comments TROPONIN I (test code = A84) <0.015 ng/mL 0.000-0.045 PRO TIME AND [id number] 12:27:00 Test Item Value Reference Range Interpretation [...] Comments WBC (test code = WBC) 11.1 10\\S\\3/uL 4.5-11.0 H RBC (test code = RBC) 4.89 10\\S\\6/uL 4.30-5.70 HGB (test code = HBG) 13.7 g/dL 14.0-18.0 L HCT (test code = HCT) 41.3 % 35.0-46.0 MCV (test code = MCV) 84.5 fL 80.0-94.0 MCH (test code = MCH) 28.0 pg 27.0-31.0 MCHC (test code = MCHC) 33.2 g/dL 32.0-36.0 RDW (test code = RDW) 15.1 % 11.5-14.5 H PLT (test code = PLT) 363 10\\S\\3/uL 130-400 MPV (test code = MPV) 8.7 fL 9.4-12.4 L NEUTROP # (test code = NE#) 7.9 10\\S\\3/uL 2.0-8.0 LYMPH # (test code = LY#) 1.8 10\\S\\3/uL 1.2-4.0 MONOCYTE # (test code = MO#) 0.8 10\\S\\3/uL 0.0-1.1 EOSINOPH # (test code = EO#) 0.5 10\\S\\3/uL 0.0-0.7 BASOPHIL # (test code = BA#) 0.1 10\\S\\3/uL 0.0-0.3 IG # (test code = IG#) 0.04 10\\S\\3/uL 0.00-0.06 NRBC # (test code = NRBC#) 0.00 10\\S\\3/uL 0.00-0.01 NEUTROPH % (test code = NE%) [...] RBC MORPH (test code = RBCMOR) NORMAL [id number] 12:23:00 Test Item Value Reference Range Interpretation Comments CPK (test code = 32A) 39 IU/L 39-308 COMPREHENSIVE METABOLIC [id number] 12:23:00 Test Item Value Reference Range Interpretation [...] = 31A) 18 IU/L <=78 DRUGS OF [id number] 12:14:00 Test Item Value Reference Range Interpretation [...] ng/mL Barbiturates 200 ng/mL Opiates 2000 ng/mL [id number] 12:12:00 Test Item Value Reference Range Interpretation [...] LEUK) NEGATIVE NEGATIVE CT CERVICAL SPINE W/O [id number] 12:07:40Exam: CT C-spine.Location: H0Actywze: : Unspecified fallTechnique: Unenhanced spiral slices were [...] tissues are nor mal.Impression:Unremarkable exam.CT HEAD W/O [id number] 11:56:11EXAM: CT head without contrastLocation: A1 COMPARISON: [...] mGy-cm CTDI 63 mGyXR CHEST 1 VIEW [id number] 11:52:12EXAM: Portable chest x-rayLocation: K5QXPMHEFFNX: Chest x-ray on 04/20/17INDICATION: Dizziness, tachycardiaDISCUSSION:No consolidation or pleural effusion is seen. The cardiomediastinal silhouetteis within normal limits. No acute bony abnormalities are identified.IMPRESSION: No evidence of acute abnormality.RAD, ANKLE, MIN 3 VIEWS, [id number] 08:51:00Reason for exam:->FALLReason for exam:->ANKLE PAINShould this be performed at the bedside?->NoFINAL REPORT Ankle, right, three images INDICATION: Fall, ankle pain COMPARISON: None available IMPRESSION: There is soft tissue swelling. There is no evidence of acute fractureor dislocation. The joint spaces are maintained. A small posterior calcaneal spur is present. Signed: Jaz Waterman MDRrafyort Verified Date/Time: 09/28/2017 08:51:13 Reading Location: [facility] Radiology Reading Room RAD, KNEE, COMPLETE (4 VIEWS), [id number] 08:50:00Reason for exam:->FALLReason for exam:->ANKLE PAINShould this [...] MDReport Verified Date/Time: 09/28/2017 08:50:03 Reading Location: [facility] Radiology Reading Room RAD, FOOT, MIN 3 VIEWS, [id number] 08:45:00Reason for exam:- >FALLReason for exam:->ANKLE PAINShould [...] Hernandezeport Verified Date/Time: 09/28/2017 08:45:31 Reading Location: [facility] Radiology Reading Room - CT ABD PELVIS W/[id number] 14:49:00[facility] : 1980 Sex: M Name: REZA MAJOR : 1980Age/S: 37 / M [address] Unit #: [id number] Loc: [place] [address] Phys: Farida Hamilton MD Acct: [id number] Dis Date: Status: DEP ER PHONE#: [phone] Exam Date: 08/20/2017 1439 FAX #: Reason:abd pain EXAMS: CPT: [id number] CT ABD PELVIS W/CONT 95433 LOCATION CODE: D4 CT ABDOMEN AND PELVIS [...] Talley RT(R)(CT) CTDI: DLP: Trnscb Date/Time: 08/20/2017 (7598) Glenn Orig Print D/T: S: 08/20/2017 (1429) PAGE 1 Signed ReportCT STONE PROTOCOL [id number] 17:07:45Renal stone protocol CT of the abdomen [...] or hydronephrosis.3. Benign-appearing hepatic calcification, unchanged.AMYLASE AND [id number] 16:53:00 Test Item Value Reference Range Interpretation Comments AMYLASE (test code = 10A) 28 U/L 28-100 LIPASE (test code = 60A) 90 IU/L 73-393 COMPREHENSIVE METABOLIC [id number] 16:53:00 Test Item Value Reference Range Interpretation [...] = 31A) 15 IU/L <=78 DRUGS OF [id number] 16:50:00 Test Item Value Reference Range Interpretation [...] ng/mL Opiates 2000 ng/mL PRO TIME AND [id number] 16:45:00 Test Item Value Reference Range Interpretation [...] or LMW Heparin. Order Code is ANTI-XA [id number] 16:39:00 Test Item Value Reference Range Interpretation [...] Comments WBC (test code = WBC) 8.8 10\\S\\3/uL 4.5-11.0 RBC (test code = RBC) 4.89 10\\S\\6/uL 4.30-5.70 HGB (test code = HBG) 13.4 g/dL 14.0-18.0 L HCT (test code = HCT) 40.8 % 35.0-46.0 MCV (test code = MCV) 83.4 fL 80.0-94.0 MCH (test code = MCH) 27.4 pg 27.0-31.0 MCHC (test code = MCHC) 32.8 g/dL 32.0-36.0 RDW (test code = RDW) 14.5 % 11.5-14.5 PLT (test code = PLT) 354 10\\S\\3/uL 130-400 MPV (test code = MPV) 8.7 fL 9.4-12.4 L NEUTROP # (test code = NE#) 5.3 10\\S\\3/uL 2.0-8.0 LYMPH # (test code = LY#) 2.5 10\\S\\3/uL 1.2-4.0 MONOCYTE # (test code = MO#) 0.7 10\\S\\3/uL 0.0-1.1 EOSINOPH # (test code = EO#) 0.3 10\\S\\3/uL 0.0-0.7 BASOPHIL # (test code = BA#) 0.1 10\\S\\3/uL 0.0-0.3 IG # (test code = IG#) 0.01 10\\S\\3/uL 0.00-0.06 NRBC # (test code = NRBC#) 0.00 10\\S\\3/uL 0.00-0.01 NEUTROPH % (test code = NE%) [...] code = RBCMOR) NORMAL XR SPINE CERVICAL [id number] 13:05:14Cervical spine, 6 viewsLocation code: N8Lteeflrc history: M54.2: CERVICALGIAComments: AP, oblique, open mouth [...] spaces are wellm aintained.XR ANKLE LEFT 2 [id number] 09:35:56EXAMINATION: XR ANKLE LEFT 2 VIEW, XR [...] spaces are wellmaintained.MRA NECK W & WO [id number] 14:42:31MRA OF THE [place]OT[place] WITHOUT CONTRASTHISTORY: Near [...] bilateral common or internalcarotid arteries.MRA HEAD W/O [id number] 14:28:18MRA OF THE [place] WITHOUT CONTRASTHISTORY: Near syncopal episodeTECHNIQUE: [...] No aneurysmal dilatation.MRI BRAIN W/ AND W/O [id number] 13:51:27MRI brain with and without contrastLocation code: W5Hftlotst history: Near syncopeTechnique: Multiplanar multisequence MR imaging [...] with and without contrast.GLUCOMETER GLUCOSE- LAB USE [id number] 11:46:00 Test Item Value Reference Range Interpretation Comments GLUCOMETER (test code 161 mg/dL 70-100 H CLEANE D METERMeter ID: = GMG) [id number] tor: 3966 WILFRED RAJU XR ELBOW LEFT COMPLETE 3 [id number] 10:38:15Right Elbow, 3 viewsLocation Code: A5YVYATXIV HISTORY: Injury, fallCOMMENTS: AP, lateral, and oblique views of the right elbow demonstrate noacute fracture or malalignment. The soft tissues are unremarkable.IMPRESSION: No acute radiographic abnormality.XR CHEST 2 [id number] 10:38:03PA and lateral chest, 2 views.Location code: Y0BYCBWUNB HISTORY: Dizziness, fallCOMPARISON: NoneCOMMENTS: The lungs are clear and well inflated. The costophrenic angles aresharp. The cardiomediastinalsilhouette is unremarkable. The bones are intact.IMPRESSION: No acute abnormalityXR SHOULDER LEFT 3 [id number] 10:37:47Left shoulder, 3 viewsLocation Code: Z7ANJZFHBH HISTORY: Fall, injury,COMMENTS: AP views in internaland external rotation along with a transscapularY view of the left shoulder were obtained. There is no acute fracture ormalalignment. The soft tissues are unremarkable.IMPRESSION: No acute abnormality.XR HUMERUS LEFT AP & [id number] 10:37:28Left humerus, 2 viewsLocation Code: W5Glknpwts history: Trauma, injury, pain Comment: AP and lateralviews of the left humerus demonstrate no displacedfracture or malalignment. The soft tissues are unremarkable.Impression:No acute radiographic abnormality.[id number] 10:36:00 Test Item Value Reference Range Interpretation Comments D-DIMER (test code = <200 ng/mL D-DU 0-234 DDI) D-DIMER COMMENT (test *Level to rule out code = DDCOM) DVT or PE: <235 ng/mL D-DU* COMPREHENSIVE METABOLIC [id number] 10:36:00 Test Item Value Reference Range Interpretation [...] code = 31A) 18 IU/L <=78 CARDIAC [id number] 10:19:00 Test Item Value Reference Range Interpretation Comments TROPONIN I (test code = A84) <0.015 ng/mL 0.000-0.045 CKMB (test code = A49) <1.0 ng/mL <=3.6 CPK (test code = 32A) 38 IU/L 39-308 L PRO TIME AND [id number] 10:12:00 Test Item Value Reference Range Interpretation [...] Comments WBC (test code = WBC) 12.0 10\\S\\3/uL 4.5-11.0 H RBC (test code = RBC) 5.10 10\\S\\6/uL 4.30-5.70 HGB (test code = HBG) 14.5 g/dL 14.0-18.0 HCT (test code = HCT) 42.7 % 35.0-46.0 MCV (test code = MCV) 83.7 fL 80.0-94.0 MCH (test code = MCH) 28.4 pg 27.0-31.0 MCHC (test code = MCHC) 34.0 g/dL 32.0-36.0 RDW (test code = RDW) 12.7 % 11.5-14.5 PLT (test code = PLT) 374 10\\S\\3/uL 130-400 MPV (test code = MPV) 8.9 fL 9.4-12.4 L NEUTROP # (test code = NE#) 7.9 10\\S\\3/uL 2.0-8.0 LYMPH # (test code = LY#) 2.8 10\\S\\3/uL 1.2-4.0 MONOCYTE # (test code = MO#) 0.7 10\\S\\3/uL 0.0-1.1 EOSINOPH # (test code = EO#) 0.5 10\\S\\3/uL 0.0-0.7 BASOPHIL # (test code = BA#) 0.1 10\\S\\3/uL 0.0-0.3 IG # (test code = IG#) 0.03 10\\S\\3/uL 0.00-0.06 NRBC # (test code = NRBC#) 0.00 10\\S\\3/uL 0.00-0.01 NEUTROPH % (test code = NE%) [...] code = RBCMOR) NORMAL CT HEAD W/O [id number] 10:02:40CT brain without contrastLocation code: I4BOLGSPUT HISTORY: Dizziness, headache COMPARISON: None.TECHNIQUE: Routine unenhanced [...] 60A) 81 IU/L 73-393 CBC (INCLUDES AUTOMATED DIFFERENTIAL)*[id number] 13:47:00 Test Item Value Reference Range Interpretation Comments WBC (test code = WBC) 14.4 10\\S\\3/uL 4.5-11.0 H RBC (test code = RBC) 5.14 10\\S\\6/uL 4.30-5.70 HGB (test code = HBG) 15.0 g/dL 14.0-18.0 HCT (test code = HCT) 44.6 % 35.0-46.0 MCV (test code = MCV) 86.8 fL 80.0-94.0 MCH (test code = MCH) 29.2 pg 27.0-31.0 MCHC (test code = MCHC) 33.6 g/dL 32.0-36.0 RDW (test code = RDW) 13.0 % 11.5-14.5 PLT (test code = PLT) 409 10\\S\\3/uL 130-400 H MPV (test code = MPV) 9.1 fL 9.4-12.4 L NEUTROP # (test code = NE#) 10.9 10\\S\\3/uL 2.0-8.0 H LYMPH # (test code = LY#) 2.3 10\\S\\3/uL 1.2-4.0 MONOCYTE # (test code = MO#) 0.8 10\\S\\3/uL 0.0-1.1 EOSINOPH # (test code = EO#) 0.3 10\\S\\3/uL 0.0-0.7 BASOPHIL # (test code = BA#) 0.1 10\\S\\3/uL 0.0-0.3 IG # (test code = IG#) 0.05 10\\S\\3/uL 0.00-0.06 NRBC # (test code = NRBC#) 0.00 10\\S\\3/uL 0.00-0.01 NEUTROPH % (test code = NE%) [...] MORPH (test code = NORMAL WRBCMOR) CT, [id number] 09:15:00Reason for exam:->ABDOMINAL PAINReason for exam:->DIARRHEAReason for [...] MDReport Verified Date/Time: 03/08/2017 09:15:05 Reading Location: [address] Ortho Consult Reading Room BASIC METABOLIC [id number] 08:21:00 Test Item Value Reference Range Interpretation [...] (test code = 347) 21 U/L 5-50 [id number] 08:18:00 Test Item Value Reference Range Interpretation Comments LIPASE (BEAKER) (test code = 749) 37 U/L 40-240 L BILIRUBIN, ADULT [id number] 08:16:00 Test Item Value Reference Range Interpretation Comments BILIRUBIN TOTAL (BEAKER) (test code 0.3 mg/dL 0.1-1.2 = 377) CBC W/PLT COUNT & AUTO [id number] 08:13:00 Test Item Value Reference Range Interpretation [...] = 417) RAD, FOOT, MIN 3 VIEWS, [id number] 08:37:00Reason for exam:->FOOT INJURYleft foot injury , [...] MDReport Verified Date/Time: 02/25/2017 08:37:49 Reading Location: [facility] C013Y CT Body Reading Room CT ABDOMEN AND PELVIS WITH CONTRAST*WW*2017-02-25 03:54:12CT ABDOMEN AND PELVIS WITH CONTRAST*WW*Location:[address] hours services are provided 02/25/2017 2:48 AM Indication:RLQ pain.Comparison: Not availableTechnique: Axial CT of the abdomen and pelvis followingthe bolusadministration of nonionic intravenous contrast. Sagittal and coronalreformatted images areprovided for interpretation. All CT [facility] use dose modulation, iterative reconstruction, and [...] = WAUAM) NO NO CBC (INCLUDES AUTOMATED DIFFERENTIAL)*[id number] 02:15:00 Test Item Value Reference Range Interpretation Comments WBC (test code = WBC) 11.7 10\\S\\3/uL 4.5-11.0 H RBC (test code = RBC) 4.73 10\\S\\6/uL 4.30-5.70 HGB (test code = HBG) 13.6 g/dL 14.0-18.0 L HCT (test code = HCT) 41.3 % 35.0-46.0 MCV (test code = MCV) 87.3 fL 80.0-94.0 MCH (test code = MCH) 28.8 pg 27.0-31.0 MCHC (test code = MCHC) 32.9 g/dL 32.0-36.0 RDW (test code = RDW) 12.9 % 11.5-14.5 PLT (test code = PLT) 339 10\\S\\3/uL 130-400 MPV (test code = MPV) 9.3 fL 9.4-12.4 L NEUTROP # (test code = NE#) 6.5 10\\S\\3/uL 2.0-8.0 LYMPH # (test code = LY#) 3.8 10\\S\\3/uL 1.2-4.0 MONOCYTE # (test code = MO#) 0.8 10\\S\\3/uL 0.0-1.1 EOSINOPH # (test code = EO#) 0.4 10\\S\\3/uL 0.0-0.7 BASOPHIL # (test code = BA#) 0.1 10\\S\\3/uL 0.0-0.3 IG # (test code = IG#) 0.04 10\\S\\3/uL 0.00-0.06 NRBC # (test code = NRBC#) 0.00 10\\S\\3/uL 0.00-0.01 NEUTROPH % (test code = NE%) [...] code = NORMAL WRBCMOR) RAPID DRUG SCREEN, [id number] 20:58:00 Test Item Value Reference Range Interpretation [...] situations. Chain of custody not maintained. Some ylpa-mpr-xpfipqx medications, as well as adulterants, may cause [...] 1574) SOURCE(BEAKER) (test code = 2795) KETONE, [id number] 20:12:00 Test Item Value Reference Range Interpretation Comments KETONES, BLOOD (BEAKER) (test code 0.0 mmol/L <0.4 = 1103) POCT-GLUCOSE [id number] 20:08:00 Test Item Value Reference Range Interpretation Comments POC-GLUCOSE METER 241 mg/dL 70-110 H TESTED AT [facility] [address] (BEAKER) (test code [facility] = 1538) [place] [address] BLOOD GAS, [id number] 20:05:00 Test Item Value Reference Range Interpretation [...] = 1818) CREATINE KINASE (CK), TOTAL AND [id number] 20:05:00 Test Item Value Reference Range Interpretation [...] < pg/mL 0-100 (test code = 700) [id number] 19:59:00 Test Item Value Reference Range Interpretation [...] within 95-100% range.RAD, CHEST, 1 VIEW, NON [id number] 19:59:00Reason for exam:->cpShould this be performed at the bedside?->YesFINAL REPORT Clinical History: cp Comparison Study: None Findings: The heartand lungs are within normal limits. The pleural spaces are clear. No significant bony or soft tissu e abnormalities are seen. Impression: No active cardiopulmonary disease. Signed: Leslie Duval Verified Date/Time: 01/19/2017 19:59:25 Reading Location: [address] Consult Reading Room COMPREHENSIVE METABOLIC [id number] 19:58:00 Test Item Value Reference Range Interpretation [...] PATIEN TS. CBC W/PLT COUNT & AUTO [id number] 19:42:00 Test Item Value Reference Range Interpretation [...] L 0.00-0.20 (test code = 417) POCT-GLUCOSE [id number] 19:02:00 Test Item Value Reference Range Interpretation Comments POC-GLUCOSE METER 367 mg/dL 70-110 H TESTED AT [facility] [address] (BEAKER) (test code [facility] = 1538) [place] [address] CT, SPINE, CERVICAL, WO [id number] 18:25:00Reason for exam:->NECK PAINWhat is the patient's [...] straightening of normal cervical lordosis. Signed: Mino Gamble MDReport Verified Date/Time: 01/15/2017 18:25:26 Reading Location: [address] Reading Room Electronically signed by: MINO GAMBLE M.D.on 01/15/2017 06:25 PMCT, BRAIN, WITHOUT [id number] 18:14:00Reason for exam:->NECK PAINWhat is the patient's [...] for further evaluation if warranted. Signed: Mino Gamble MDReport Verified Date/Time: 01/15/2017 18:14:13 Reading Location: [address] Reading Room XR KNEE RIGHT 3 [id number] 22:22:15EXAM: Portable right knee series, 3 viewsLocation: [id number]: Fell on right knee and twisted right kneeCOMPARISON: None.DISCUSSION: Frontal, oblique, and crosstable lateral views of the right kneeare submitted. No fracture, dislocation, lytic or blastic lesions areidentified. Joint spaces appear well preserved. No joint effusion is seen.IMPRESSION:No acute bony abnormalities.XR ANKLE RIGHT COMPLETE 3 [id number] 22:21:22EXAM: Right ankle series, 3 viewsLocation: [id number]: Fell, twisted right ankleCOMPARISON: None.D ISCUSSION: Frontal, oblique, and lateral views of the right ankle aresubmitted. There is a questionable hairline fracture of the distal fibula, onlyseen on the oblique view near the ankle mortise. No other evidence of fractureis seen.IMPRESSION: Questionable hairline fracture of the distal fibula.RAPID DRUG SCREEN, [id number] 23:10:00 Test Item Value Reference Range Interpretation [...] situations. Chain of custody not maintained. Some gabh-lwe-szzvzzv medications, as well as adulterants, may cause [...] code = 2795) XR SHOULDER LEFT 3 [id number] 09:00:14EXAMINATION: XR SHOULDER LEFT 3 VIEWS.LOCATION: D4.HISTORY: shoulder pain while carrying heavy load.COMPARISON: Left shoulder x-ray 04/16/2015.FINDINGS/IMPRESSION:Three views of left shoulder demonstrates acute osseous abnormality. Nodislocation. Left clavicle appears intact. Visualized left lung parenchymaappears unremarkable.
[2021-06-15] MEDS ORDERED: MORPHINE 4 MG/ML SYR ONE (02:25)
[2021-06-15] MEDS ORDERED: ONDANSETRON 4 MG/2 ML VIAL ONE (02:25)
[2021-06-15 02:55] LABS: Absolute Lymphocytes (CBC) 1.8 K/uL (0.7-4.9); Hematocrit 37.8 % (39.6-49.0); Lymphocytes % 15.3 % (15.3-44.8); MPV 7.2 fL (7.6-11.3)
[2021-06-15 03:11] LABS: ALT/SGPT 34 U/L (12-78); AST/SGOT 16 U/L (15-37); Albumin 3.4 g/dL (3.4-5.0); Alkaline Phosphatase 136 U/L (45-117); BUN Blood Urea Nitrogen 7 mg/dL (7-18); Bicarbonate 27 mmol/L (21-32); Bilirubin Direct < 0.1 mg/dL (0-0.2); Bilirubin Total 0.2 mg/dL (0.2-1.0); Glucose Level 277 mg/dL (74-106); Lipase 51 U/L (73-393); Potassium 3.2 mmol/L (3.5-5.1); Protein, Total 8.1 g/dL (6.4-8.2); Sodium Level 134 mmol/L (136-145)
[2021-06-15] MEDS ORDERED: NA CHLORIDE 0.9% 500 ML ONE (03:12)
[2021-06-15] MEDS ORDERED: METHYLPREDNISOLONE 125 MG INJ ONE (04:38)
[2021-06-15] MEDS ORDERED: HYDROCODONE/APAP 10/325 TAB ONE (04:39)
[2021-06-15] MEDS ORDERED: METHOCARBAMOL 1,000 MG/10 ML VIAL IV ONE (04:39)
[2021-06-15] MEDS ORDERED: NA CHLORIDE 0.9% 0 ML IV ONE (04:40)
--- NOTE | 2021-06-15 04:49 | ER ---
Nurse's Notes [facility] Name: Adria Guallpa Jr Age: 41 yrs Sex: Male : 1980 Arrival Date: 06/15/2021 Time: 01:49 Bed 15 Private MD: Diagnosis: Presentation: 06/15 01:52 Chief complaint: Patient states: right sided abdominal pain that radiates to the back lg3 for 4 days now and getting worse. Coronavirus screen: Client denies travel out of the [place] in the last 14 days. At this time, the client does not indicate any symptoms associated with coronavirus-19. Ebola Screen: No symptoms or risks identified at this time. Initial Sepsis Screen: Does the patient meet any 2 criteria? No. Patient's initial sepsis screen is negative. Does the patient have a suspected source of infection? No. Patient's initial sepsis screen is negative. Risk Assessment: Do you want to hurt yourself or someone else? Patient reports no desire to harm self or others. Onset of symptoms was June 11, 2021. 01:52 Method Of Arrival: Ambulatory lg3 01:52 Acuity: DAVE 3 lg3 Triage Assessment: 01:56 General: Appears in no apparent distress. uncomfortable, Behavior is calm, cooperative. lg3 Pain: Complains of pain in abdomen Pain radiates to right side of back Pain currently is 8 out of 10 on a pain scale. Quality of pain is described as pressure, sharp, squeezing, tender. EENT: No deficits noted. No signs and/or symptoms were reported regarding the EENT system. Neuro: No deficits noted. Level of Consciousness is awake, alert, obeys commands, Oriented to person, place, time. Cardiovascular: No deficits noted. Denies chest pain, Capillary refill < 3 seconds Clubbing of nail beds is absent JVD is absent Patient's skin is warm and dry. Respiratory: No deficits noted. Airway is patent Trachea midline Respiratory effort is even, unlabored, Respiratory pattern is regular, symmetrical. GI: Abdomen is round non-distended, Bowel sounds present X 4 quads. Abd is soft X 4 quads Abdomen is tender to palpation in right upper quadrant and right lower quadrant. : No deficits noted. No signs and/or symptoms were reported regarding the genitourinary system. Derm: No deficits noted. No signs and/or symptoms reported regarding the dermatologic system. Skin is intact, is healthy with good turgor, Skin is dry. Musculoskeletal: No deficits noted. No signs and/or symptoms reported regarding the musculoskeletal system. Circulation, motion, and sensation intact. Range of motion: intact in all extremities. Historical: - Allergies: 01:56 Demerol; lg3 01:56 Toradol; lg3 01:56 Flexeril; lg3 01:56 Ibuprofen; lg3 - Home Meds: 01:56 aspirin 81 mg Oral chew [Active]; lg3 - PMHx: 01:56 Diabetes - NIDDM; Chronic pain; GALLSTONES; Myocardial infarction; lg3 - PSHx: 01:56 Cholecystectomy; billateral eye; lg3 - Immunization history:: Adult Immunizations up to date, Client reports receiving the 2nd dose of the Covid vaccine, pfizer X2. - Social history:: Smoking status: Patient reports the use of cigarette tobacco products, smokes one pack cigarettes per day. Patient/guardian denies using alcohol, street drugs. Screenin:00 Abuse screen: Denies threats or abuse. Denies injuries from another. Nutritional lg3 screening: No deficits noted. Tuberculosis screening: No symptoms or risk factors identified. Fall Risk None identified. Assessment: 02:13 General: Appears uncomfortable, unkempt, well developed, well nourished, Behavior is tk1 calm, cooperative, appropriate for age. Pain: Complains of pain in abdomen Pain radiates to right lower quadrant Pain currently is 8 out of 10 on a pain scale. Quality of pain is described as squeezing, Pain began 2-3 days ago. Is intermittent. Neuro: Level of Consciousness is awake, alert, obeys commands, Oriented to person, place, time, situation, Fiction And Nonfiction Author are equal bilaterally Moves all extremities. Gait is steady, Speech is normal, Facial symmetry appears normal, Pupils are PERRLA. Cardiovascular: No deficits noted. Denies chest pain. Respiratory: Airway is patent Trachea midline Respiratory effort is even, unlabored. GI: Abdomen is round obese, Bowel sounds present X 4 quads. Abd is soft Abdomen is tender to palpation in right upper quadrant. : No deficits noted. No signs and/or symptoms were reported regarding the genitourinary system. EENT: No deficits noted. No signs and/or symptoms were reported regarding the EENT system. Derm: No deficits noted. No signs and/or symptoms reported regarding the dermatologic system. Musculoskeletal: No deficits noted. No signs and/or symptoms reported regarding the musculoskeletal system. 03:16 Reassessment: No changes from previously documented assessment. Patient and/or family tk1 updated on plan of care and expected duration. Pain level reassessed. Patient is alert, oriented x 3, equal unlabored respirations, skin warm/dry/pink. Pain: Complains of pain in abdomen Pain currently is 10 out of 10 on a pain scale. Quality of pain is described as squeezing, Pain began 2-3 days ago. Is intermittent. 03:38 Reassessment: Patient returned from CT. Ambulated to restroom to void. Steady gait. tk1 Tolerated well. Followed patient back to room to restart IV fluids and place back on monitor. Patient states, "I don't want the IV reconnected." When question why, patient states, it makes him have to "pee" to much. Dr. Maciel updated. 04:45 Reassessment: To patient's room for med administration. Patient's removed IV on tk1 counter, lab results from MD on stretcher, and patient not in room. Dr. Maciel updated. Meds wasted. Vital Signs: 01:52 BP 124 / 83; Pulse 88; Resp 20 S; Temp 97.7(TE); Pulse Ox 98% on R/A; Weight 104.33 kg lg3 (R); Height 5 ft. 10 in. (177.80 cm) (R); Pain 8/10; 02:13 BP 125 / 88 LA Supine (auto/reg); Pulse 101 MON; Resp 18; Pulse Ox 97% on R/A; Pain tk1 8/10; 03:14 Pain 10/10; tk1 03:16 BP 118 / 73 LA Supine (auto/reg); Pulse 72 MON; Resp 18; Pulse Ox 95% on R/A; Pain tk1 10/10; 01:52 Body Mass Index 33.00 (104.33 kg, 177.80 cm) lg3 Vitals: 02:13 Cardiac Rhythm Assessment Regular Sinus rhythm. tk1 [place] Coma Score: 02:13 Eye Response: spontaneous(4). Verbal Response: oriented(5). Motor Response: obeys tk1 commands(6). Total: 15. ED Course: 01:49 Patient arrived in ED. wm 01:53 Antonio Maciel MD is Attending Physician. kdr 01:56 Triage completed. lg3 01:56 Arm band placed on right wrist. lg3 02:12 Mirela Gray is Primary Nurse. tk1 02:12 Basic Metabolic Panel Sent. tk1 02:12 CBC with Diff Sent. tk1 02:12 Hepatic Function Sent. tk1 02:12 Lipase Sent. tk1 02:13 Patient has correct armband on for positive identification. Bed in low position. Call tk1 light in reach. Side rails up X2. 02:13 No provider procedures requiring assistance completed. Inserted saline lock: 18 gauge tk1 in right antecubital area, using aseptic technique. Blood collected. 03:40 CT Abd/Pelvis - IV Contrast Only In Process Unspecified. EDMS 04:45 IV discontinued, per patient. tk1 Administered Medications: 02:24 Drug: morphine 4 mg Route: IVP; Rate: 2 mg/min; Infused Over: 2 mins; Site: right tk1 antecubital; 03:13 Follow up: Response: Pain is unchanged, physician notified tk1 03:14 Follow up: Pain 01/31 Adult tk1 02:25 Drug: NS 0.9% 500 ml Route: IV; Rate: bolus; Infused Over: 1 hrs; Site: right tk1 antecubital; Delivery: Primary tubing; 02:25 Drug: Zofran (Ondansetron) 4 mg Route: IVP; Rate: 2 mg/min; Infused Over: 2 mins; Site: tk1 right antecubital; 03:14 Follow up: Response: Nausea unchanged tk1 04:48 Not Given (Patient Eloped): [place] (HYDROcodone-acetaminophen) 10 mg-325 mg 1 tabs PO tk1 once; RASS on ADMIN: Combtv4, Very Agttd3, Agttd2, Rstlss1, AlertClm0, Drwsy-1, Lt Sdtn-2, Mod Sdtn-3, Dp Sdtn-4, UnArsble-5 04:48 Not Given (Patient Eloped): SOLU-Medrol (methylPrednisoLONE) 125 mg IVP once tk1 04:48 Not Given (Patient Eloped): Robaxin (methocarbamol) 1 grams IVPB once over 1 hrs; (mix tk1 in NS 100 mL) Outcome: 04:45 Eloped from patient exam room, after seeing physician Time discovered patient gone: tk1 June 15, 2021 at 04:40 04:45 Condition: Patient eloped 04:49 Patient left the ED. tk1 Signatures: Dispatcher [employer] EDMS Antonio Maciel MD MD kdr Gibson, Lacie, RN RN 3 Balbina Campos Tammie tk1
--- NOTE | 2021-06-15 04:50 | EDPHYS ---
Physician Documentation [facility] Name: Adria Guallpa Jr Age: 41 yrs Sex: Male : 1980 Arrival Date: 06/15/2021 Time: 01:49 Bed 15 Private MD: ED Physician Antonio Maciel HPI: 06/15 02:25 This 41 yrs old Male presents to ER via Ambulatory with complaints of Abdominal Pain - kdr RUQ. 02:25 The patient presents with abdominal pain in the right upper quadrant. Onset: The kdr symptoms/episode began/occurred gradually, Has had intermittent right upper quadrant pain for several weeks but became precipitously worse on Monday. The symptoms do not radiate. Associated signs and symptoms: Pertinent positives: nausea and vomiting, Pertinent negatives: chest pain, constipation, diarrhea, dysuria, fever, headache, hematuria, nausea, palpitations, shortness of breath, testicular pain, vomiting. The symptoms are described as achy, vague, waxing/waning. Modifying factors: The symptoms are alleviated by nothing, the symptoms are aggravated by breathing deeply, movement, touching the area, walking. Severity of pain: At its worst the pain was moderate severe just prior to arrival, in the emergency department the pain is unchanged. The patient has not experienced similar symptoms in the past. The patient has not recently seen a physician. Historical: - Allergies: 01:56 Demerol; lg3 01:56 Toradol; lg3 01:56 Flexeril; lg3 01:56 Ibuprofen; lg3 - Home Meds: 01:56 aspirin 81 mg Oral chew [Active]; lg3 - PMHx: 01:56 Diabetes - NIDDM; Chronic pain; GALLSTONES; Myocardial infarction; lg3 - PSHx: 01:56 Cholecystectomy; billateral eye; lg3 - Immunization history:: Adult Immunizations up to date, Client reports receiving the 2nd dose of the Covid vaccine, pfizer X2. - Social history:: Smoking status: Patient reports the use of cigarette tobacco products, smokes one pack cigarettes per day. Patient/guardian denies using alcohol, street drugs. ROS: 02:25 Constitutional: Negative for fever, chills, and weight loss, Eyes: Negative for injury, kdr pain, redness, and discharge, Neck: Negative for injury, pain, and swelling, Cardiovascular: Negative for chest pain, palpitations, and edema, Respiratory: Negative for shortness of breath, cough, wheezing, and pleuritic chest pain, Back: Negative for injury and pain, : Negative for injury, bleeding, discharge, and swelling, MS/Extremity: Negative for injury and deformity, Skin: Negative for injury, rash, and discoloration, Neuro: Negative for headache, weakness, numbness, tingling, and seizure activity. Psych: Negative for depression, anxiety, suicide ideation, homicidal ideation, and hallucinations, Allergy/Immunology: Negative for hives, rash, and allergies, Endocrine: Negative for neck swelling, polydipsia, polyuria, polyphagia, and marked weight changes, Hematologic/Lymphatic: Negative for swollen nodes, abnormal bleeding, and unusual bruising. 02:25 Abdomen/GI: Positive for abdominal pain, nausea and vomiting, of the right upper quadrant, Negative for diarrhea, constipation, abdominal cramps, abdominal distension, anorexia, dysphagia, hematemesis, black/tarry stool, rectal pain, rectal bleeding. Exam: 02:25 Constitutional: This is a well developed, well nourished patient who is awake, alert, kdr and in mild distress. Head/Face: Normocephalic, atraumatic. Eyes: Pupils equal round and reactive to light, extra-ocular motions intact. Lids and lashes normal. Conjunctiva and sclera are non-icteric and not injected. Cornea within normal limits. Periorbital areas with no swelling, redness, or edema. Neck: Trachea midline, no thyromegaly or masses palpated, and no cervical lymphadenopathy. Supple, full range of motion without nuchal rigidity, or vertebral point tenderness. No Meningismus. Chest/axilla: Normal chest wall appearance and motion. Nontender with no deformity. No lesions are appreciated. Cardiovascular: Regular rate and rhythm with a normal S1 and S2. No gallops, murmurs, or rubs. Normal PMI, no JVD. No pulse deficits. Respiratory: Lungs have equal breath sounds bilaterally, clear to auscultation and percussion. No rales, rhonchi or wheezes noted. No increased work of breathing, no retractions or nasal flaring. Back: No spinal tenderness. No costovertebral tenderness. Full range of motion. Skin: Warm, dry with normal turgor. Normal color with no rashes, no lesions, and no evidence of cellulitis. MS/ Extremity: Pulses equal, no cyanosis. Neurovascular intact. Full, normal range of motion. Neuro: Awake and alert, GCS 15, oriented to person, place, time, and situation. Cranial nerves II-XII grossly intact. Motor strength 5/5 in all extremities. Sensory grossly intact. Cerebellar exam normal. Normal gait. Psych: Awake, alert, with orientation to person, place and time. Behavior, mood, and affect are within normal limits. 02:25 Abdomen/GI: Inspection: abdomen appears normal, Bowel sounds: normal, Palpation: soft, mild abdominal tenderness, in all quadrants, mass, rebound tenderness, voluntary guarding, involuntary guarding. Vital Signs: 01:52 BP 124 / 83; Pulse 88; Resp 20 S; Temp 97.7(TE); Pulse Ox 98% on R/A; Weight 104.33 kg lg3 (R); Height 5 ft. 10 in. (177.80 cm) (R); Pain 8/10; 02:13 BP 125 / 88 LA Supine (auto/reg); Pulse 101 MON; Resp 18; Pulse Ox 97% on R/A; Pain tk1 8/10; 03:14 Pain 10/10; tk1 03:16 BP 118 / 73 LA Supine (auto/reg); Pulse 72 MON; Resp 18; Pulse Ox 95% on R/A; Pain tk1 10/10; 01:52 Body Mass Index 33.00 (104.33 kg, 177.80 cm) lg3 [place] Coma Score: 02:13 Eye Response: spontaneous(4). Verbal Response: oriented(5). Motor Response: obeys tk1 commands(6). Total: 15. MDM: 02:25 Data reviewed: vital signs, nurses notes, lab test result(s), radiologic studies. kdr Counseling: I had a detailed discussion with the patient and/or guardian regarding: the historical points, exam findings, and any diagnostic results supporting the discharge/admit diagnosis, lab results, radiology results. 04:58 Patient medically screened. kdr 06/15 01:57 Order name: Basic Metabolic Panel; Complete Time: 03:43 kdr 06/15 01:57 Order name: CBC with Diff; Complete Time: 03:43 kdr 06/15 01:57 Order name: Hepatic Function; Complete Time: 03:43 kdr 06/15 01:57 Order name: Lipase; Complete Time: 03:43 kdr 06/15 02:23 Order name: CT Abd/Pelvis - IV Contrast Only kdr 06/15 01:57 Order name: IV Saline Lock; Complete Time: 02:12 kdr 06/15 01:57 Order name: Labs collected and sent; Complete Time: 02:12 kdr Administered Medications: 02:24 Drug: morphine 4 mg Route: IVP; Rate: 2 mg/min; Infused Over: 2 mins; Site: right tk1 antecubital; 03:13 Follow up: Response: Pain is unchanged, physician notified tk1 03:14 Follow up: Pain 01/31 Adult tk1 02:25 Drug: NS 0.9% 500 ml Route: IV; Rate: bolus; Infused Over: 1 hrs; Site: right tk1 antecubital; Delivery: Primary tubing; 02:25 Drug: Zofran (Ondansetron) 4 mg Route: IVP; Rate: 2 mg/min; Infused Over: 2 mins; Site: tk1 right antecubital; 03:14 Follow up: Response: Nausea unchanged tk1 04:48 Not Given (Patient Eloped): [place] (HYDROcodone-acetaminophen) 10 mg-325 mg 1 tabs PO tk1 once; RASS on ADMIN: Combtv4, Very Agttd3, Agttd2, Rstlss1, AlertClm0, Drwsy-1, Lt Sdtn-2, Mod Sdtn-3, Dp Sdtn-4, UnArsble-5 04:48 Not Given (Patient Eloped): SOLU-Medrol (methylPrednisoLONE) 125 mg IVP once tk1 04:48 Not Given (Patient Eloped): Robaxin (methocarbamol) 1 grams IVPB once over 1 hrs; (mix tk1 in NS 100 mL) Disposition Summary: 06/15/21 04:49 Eloped Disposition: after being seen by provider tk1 Reason: (see nurse's notes) tk1 Signatures: Dispatcher [employer] EDAntonio Morgan MD MD kdr Gibson, Lacie, RN RN [email or web address] Mirela Gray tk1 Carrie Brady PA PA sb3 Corrections: (The following items were deleted from the chart) 03:08 02:24 Abdomen Limited+[id number] ordered. EDMS EDMS
[2021-06-15 05:03] VITALS: TEMP 97.7
[2021-06-15 05:07] VITALS: BP 118/73; O2SAT 95
--- NOTE | 2021-06-15 12:53 | RAD REPORT ---
EXAM DESCRIPTION: CT Abdomen and Pelvis With Intravenous Contrast CLINICAL HISTORY: The patient is 41 years old and is Male; ABD PAIN TECHNIQUE: Axial computed tomography images of the abdomen and pelvis with intravenous contrast. S agittal and coronal reformatted images were created and reviewed. This CT exam was performed using one or more of the following dose reduction techniques: automated exposure control, adjustment of t he mA and/or kV according to patient size, and/or use of iterative reconstruction technique. COMPARISON: No relevant prior studies available. FINDINGS: LUNG BASES: Unremarkable. No mass. No consolidation. ABDOMEN: LIVER: The liver is mildly fatty. Calcification within the right hepatic lobe is present. GALLBLADDER AND BILE DUCTS: Surgical clips are present in the right upper quadrant, consistent wi th previous cholecystectomy. PANCREAS: Fatty infiltration of pancreas is present. SPLEEN: Unremarkable. ADRENALS: Unremarkable. No mass. KIDNEYS AND URETERS: Unremarkable. The kidneys enhance symmetrically. No obstructing renal or ure teral calculus is seen. No hydronephrosis or hydroureter. No perinephric fluid or stranding. STOMACH AND BOWEL: The stomach is minimally fluid filled. The small bowel is normal in caliber. S tool is present throughout colon. There is no mucosal thickening or evidence of bowel obstruction. PELVIS: APPENDIX: The appendix is normal in caliber without surrounding inflammation. BLADDER: Unremarkable. No mass. REPRODUCTIVE: Unremarkable as visualized. ABDOMEN and PELVIS: INTRAPERITONEAL SPACE: Unremarkable. No free air. No significant fluid collection. BONES/JOINTS: No acute fracture. SOFT TISSUES: The soft tissues are normal. VASCULATURE: Unremarkable. No abdominal aortic aneurysm. LYMPH NODES: Unremarkable. No enlarged lymph nodes. IMPRESSION: No acute findings on this contrasted CT of the abdomen and pelvis to explain the patient 's symptoms. Electronically signed by: Krystal Roach MD 06/15/2021 4:09 AM [facility]ER Due to temporary technical issues with the PACS/Fluency reporting system, reports are being signed by the in house radiologists without review as a courtesy to insure prompt reporting. The interpreting radiologist is fully responsible for the content of the report.
== END 2021-06-15 04:49 | disposition left against medical advice (07) ==
LOC: ER 01:42
DX: R10.11 Right upper quadrant pain (principal); R11.2 Nausea with vomiting, unspecified; E11.9 Type 2 diabetes mellitus without complications; Z79.82 Long term (current) use of aspirin; Z88.5 Allergy status to narcotic agent; Z88.6 Allergy status to analgesic agent; Z88.8 Allergy status to other drugs, medicaments and biological substances
CPT/HCPCS: 36415; 74177; 80048; 80076; 83690; 85025; 96374; 96375; 99284; J2405; J2800; J2930; J7040; Q9967